=== PATIENT | male | born 1960 | race Caucasian/White ===

== ENCOUNTER 2017-08-02 10:30 | Outpatient (RCR) | payer OTHER, MEDICARE, SELFPAY ==
--- NOTE | 2017-02-02 11:36 | HP.PTEVAL ---
Patient's Visit Information YONATHAN HERNANDEZ JR is a 56 year old M referred to Physical Therapy by Shaggy Lobo MD with a diagnosis of s/p cervical spinal fusion ,right side weakness. Date of Evaluation: 02/02/17 Physical Therapist: Yobany Thornton PT, - Visit Plan Frequency: 2x /Week Duration: 6 Weeks Plan: postural ex's,balance gait,BLE strengthening,gentle cervical ROM. PATIENT TO SEE OT WITH UE - Subjective Subjective: This 56 y/o male presents to physical therapy s/p cervical spinal fusion done January 08 2017 at [facility].Patient had right side weakness arm and leg.Patient D/C from [facility] to Rehab 4th floor for about 1 week then d/c January 15 to home.Recommended cane.Okay to remove soft cast at home when resting.Patient intially injured 2008 fell out of truck on feet then developed cervical found to have cervical fx and HNP 1st surgery with cervical laminectomy,then 6 months later cervical fusion by Dr Kirkland.Patient had parathesia/tingling right arm with weakness. Patient recommended DR Freddy RUZI,had MRI. severe stenosis,HNP then S/P ACDF C3-4. Currently increase weakness right arm /leg,patient had multlpe diagnostics. Patient has lifting restriction 8#. Location pain cervical parathesia right arm with pain. Patient has BENAVIDES .Patient pain affects sleeping. Denies dinnies /nausea/tinntus. Patient has pain pump 4 years.Patient has had PT in past. Patient has had pain management several times.Due to impairments to work and difficulty. with ADLS and unbal to do housework tasks. SOCIAL: . VOCATION: disabity - Pain Bilateral Neck Pain Intensity (Out of 10): 4 Pain Intensity Range: 10 Right Shoulder Pain Intensity (Out of 10): 0 Pain Intensity Range: 10 Comment: arm - Objective POSTURE: foward posture ,head foward. GAIT: antalgic gait ER leg from weakness ,decrease swing phase. NEURO: c/o parathesia/tingling right arm/leg,reflexes C5-6-7 1/3,L3-4,L4-5,L5-S1 1/3. MYTOME weakness right arm /leg,light touch intact. MMT: RUE shoulder 3-/5,bicep 3+/5 tricep 3+/5,wrist 3+/5,UT 3-/5 RTC 3+/5,,LUE 4/5. 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 MMT: RLE quads 3-/5,hams 3+/5,hip flexion 3/5 ,hip abd 3-/5,ankle 3+/5 DF. CERVICAL ROM: flexion mod loss,extension severe loss,lateral flexion/rotation severe loss left,right mod/severe loss. SKIN: incsion well aproximate. BALANCE : good -. AROM: shoulder flexion 90 degrees ,WFL elbow/flexion - Special Tests C/S Radiculapathy - Left Upper limb tension test: Negative C/S Radiculapathy - Right Upper limb tension test: Negative - Balance Scores CATSIB Score (Max score 120 seconds): 150 - Goals Goal 1:: Independant with HEP Goal Time Frame: 4-6 Weeks Goal 2:: Ambulate with improved quality of gait with increase swing phase ,heel strike during gait cycle. Goal Time Frame: 4-6 Weeks Goal 3:: Patient increase stength right leg to 4-/5 to improve function and gait. Goal 4:: Patient improve dynamic balance to good-/good level/unlevel surfaces Goal Time Frame: 4-6 Weeks Goal 5:: Patient be able to improve ADL'S and selfhygine with min limitations Goal Time Frame: 4-6 Weeks - Rehabilitation Potential Physical Therapy Diagnosis: This patient has multple complexity issues comormidities along h/o cervical fusion 2009 from work related injury along with current impairments with s/p cervical ACDF with right side weakness in arm and leg causing deficits with gait,function,balance ,weakness ,thus will benifit from skilled PT Rehabilitation Potential: Good - Anticipated Interventions Patient/Client Instruction: Educate patient on: Condition, Plan of Care For the Purpose of:: To decrease pain, To improve muscle performance and motor function, To improve ability to perform ADL's, To increase tolerance to activity/condition/position, To improve ability of physical actions for home/community/work/leisure, To improve gait and locomotor functions, To increase flexibility/ROM, To improve endurance, To improve balance, To improve safety with gait, To assume or resume ADL's, To improve ability to perform tasks related to life management Therapeutic Exercise to Include: Strength training, Endurance training, Balance training, Postural training, Gait and locomotor training, Active ROM Comment: BLE,CERVICAL ROM gentle For the Purpose of:: To decrease pain, To increase ROM, To improve muscle performance and motor function, To improve ability to perform ADL's, To increase tolerance to activity/condition/position, To improve performance and independence with ADL's, To decrease level of supervision to perform tasks, To improve ability of physical actions for home/community/work/leisure, To improve gait and locomotor functions, To improve health of tissue, To decrease soft tissue restriction, To improve endurance, To improve balance, To improve safety with gait, To assume or resume ADL's, To improve ability to perform tasks related to life management Functional Training to Include: Gait training For the Purpose of:: To decrease pain, To improve muscle performance and motor function, To increase tolerance to activity/condition/position, To improve endurance, To improve safety with gait Thank you for the opportunity to evaluate your patient. For Medicare and Medicare HMO plans, please review the plan of care and approve it. It will need to be FAXED BACK to us at [phone] for Medicare purposes. Please let me know if there are questions or concerns regarding this plan of care. Physician Signature: Date:
--- NOTE | 2017-02-03 19:06 | HP.OTEVAL ---
Patient's Visit Information YONATHAN HERNANDEZ JR is a 56 year old M, referred to Occupational Therapy by Shaggy Lobo MD,, with a diagnosis of Cervical Fusuion with R sided Weakness. Date of Evaluation: 02/03/17 Occupational Therapist: Razia Carreon - Subjective Subjective: Pt. noted that that orginal injury occured in 2008 from slipped out of semi-trailer. He noted he landed flat on both feet. The body stoped but head and head kept coming down. Pt. suffered cervical fracture. He drove the load to location in [facility]. He had laminectomy in June that year. In November 2009, C4,5,6 cervical fusion to help promote function. The last cervical fusion was in December of this year. He noted between the last seven years he had pain pump place (non narcotic based drug). Hemocrotosis, in which liver produces too much iron. A couple weeks ago Pt. dx with lupus. - Pain Bilateral Neck 4 Pain Intensity Range: 10 - ROM Shoulder: Flexion R 99/180 L WFL Elbow: R WFL L WFL Forearm: Supination R L Wrist: R L MP: R 2nd 3rd 4th 5th ; L 2nd 3rd 4th 5th PIP: WFL - Strength Shoulder: R L Elbow: R L Research And Development Researcher: R 10 L 79 Lateral Pinch: R L Tripod Pinch: R L Tip-to-Tip Pinch: R L - Sensation Thumb: R 4.08 L 2.83 Index: R 4.08 L 2.83 Middle: R 4.08 L 2.83 Ring: R 6.65 L 2.83 Little: R 6.65 L 2.83 - Nine Hole Peg Right: 38.95 Left: 24.95 - Rehabilitation Rehabilitation Potential: Good - Anticipated Interventions Anticipated Interventions: A/AAROM/PROM, Strengthening, Edema Control, Modalities, Joint Protection/Energy Conservation, Ergonomic Education, Fine Motor Coord/Royer, Neuro Reeducation, ADL Training, Caregiver Training, Home Program - Visit Plan Frequency: 2x /Week Duration: 6 Weeks General Plan: Have not recieved c9 for OT therapy approval. Will hold scheduling until recieved. TEXT: Thank you for the opportunity to evaluate your patient. For Medicare and Medicare HMO plans, please review the plan of care and approve it. It will need to be FAXED BACK to us at [phone] for Medicare purposes. Please let me know if there are questions or concerns regarding this plan of care. Physician Signature: Date:
--- NOTE | 2017-02-09 14:18 | HP.OTEVAL ---
Patient's Visit Information YONATHAN HERNANDEZ JR is a 56 year old M, referred to Occupational Therapy by Shaggy Lobo MD,, with a diagnosis of Cervical Fusuion with R sided Weakness. Date of Evaluation: 02/03/17 Occupational Therapist: Razia Carreon - Subjective Subjective: Pt. noted that that orginal injury occured in 2008 from slipped out of semi-trailer. He noted he landed flat on both feet. The body stoped but head and head kept coming down. Pt. suffered cervical fracture. He drove the load to location in [facility]. He had laminectomy in June that year. In November 2009, C4,5,6 cervical fusion to help promote function. The last cervical fusion was in December of this year. He noted between the last seven years he had pain pump place (non narcotic based drug). Hemocrotosis, in which liver produces too much iron. A couple weeks ago Pt. dx with lupus. - Pain Bilateral Neck 4 Pain Intensity Range: 10 - ROM Shoulder: Flexion R 0- 99/180 L WFL Elbow: R WFL; L WFL Forearm: Supination R 75 L Wrist: flexion R 50, L 90; extension R 28, L 70 MP: R 2nd 64 3rd 59 4th 57 5th 61 ; L 2nd 76 3rd 83 4th 66 5th 76 PIP: WFL - Strength Shoulder: R 3/5 L WFL Elbow: R 3+/5 L WFL Lift Operator: R 10 L 79 Lateral Pinch: R 2 L 21 Tripod Pinch: R 5 L 23 Tip-to-Tip Pinch: R 4 L 17 - Sensation Thumb: R 4.08 L 2.83 Index: R 4.08 L 2.83 Middle: R 4.08 L 2.83 Ring: R 6.65 L 2.83 Little: R 6.65 L 2.83 - Nine Hole Peg Right: 38.95 Left: 24.95 - Rehabilitation Rehabilitation Potential: Good - Anticipated Interventions Anticipated Interventions: A/AAROM/PROM, Strengthening, Edema Control, Modalities, Joint Protection/Energy Conservation, Ergonomic Education, Fine Motor Coord/Royer, Neuro Reeducation, ADL Training, Caregiver Training, Home Program - Visit Plan Frequency: 2x /Week Duration: 6 Weeks General Plan: Have not recieved c9 for OT therapy approval. Will hold scheduling until recieved. TEXT: Thank you for the opportunity to evaluate your patient. For Medicare and Medicare HMO plans, please review the plan of care and approve it. It will need to be FAXED BACK to us at [phone] for Medicare purposes. Please let me know if there are questions or concerns regarding this plan of care. Physician Signature: Date:
--- NOTE | 2017-02-09 15:00 | HP.OTEVAL_ITS ---
Patient's Visit Information YONATHAN HERNANDEZ JR is a 56 year old M, referred to Occupational Therapy by Shaggy Lobo MD,, with a diagnosis of Cervical Fusuion with R sided Weakness. Date of Evaluation: 02/03/17 Occupational Therapist: Razia Carreon - Subjective Subjective: Pt. noted that that orginal injury occured in 2008 from slipped out of semi-trailer. He noted he landed flat on both feet. The body stoped but head and head kept coming down. Pt. suffered cervical fracture. He drove the load to location in [facility]. He had laminectomy in June that year. In November 2009, C4,5,6 cervical fusion to help promote function. The last cervical fusion was in December of this year. He noted between the last seven years he had pain pump place (non narcotic based drug). Hemocrotosis, in which liver produces too much iron. A couple weeks ago Pt. dx with lupus. - Pain Bilateral Neck 4 Pain Intensity Range: 10 - Objective Objective/Observation: Pt. has decrease ROM and strength of RUE. He has limited cervical ROM secondary to fusion. Per Pt. report he is experiencing decrease functional (I) to complete ADL/IADLs at this time. - ROM Shoulder: Flexion R 0- 99/180 L WFL Elbow: R WFL; L WFL Forearm: Supination R 75 L Wrist: flexion R 50, L 90; extension R 28, L 70 MP: R 2nd 64 3rd 59 4th 57 5th 61 ; L 2nd 76 3rd 83 4th 66 5th 76 PIP: WFL - Strength Shoulder: R 3/5 L WFL Elbow: R 3+/5 L WFL Data Transcriber: R 10 L 79 Lateral Pinch: R 2 L 21 Tripod Pinch: R 5 L 23 Tip-to-Tip Pinch: R 4 L 17 - Sensation Thumb: R 4.08 L 2.83 Index: R 4.08 L 2.83 Middle: R 4.08 L 2.83 Ring: R 6.65 L 2.83 Little: R 6.65 L 2.83 - Nine Hole Peg Right: 38.95 Left: 24.95 - Goals Goal:: Pt. to increase R hypercil core transformer assembler strength to that of equal or 10 lbs lesser value of L hypercil core transformer assembler strength 2/3 trials 75% of the time for increased (i) and performance with ADl/IADLs. Goal:: Pt. to increase RUE ROM from 0-99 degrees to 0-140 degrees to promote increase functional performance with overhead reaching activities 4/5 trials 80 % of the time to increase (I) and decrease need for assistance. Goal:: Pt. to increase R pinch strength to that of equal value of L pinch strength for increased (I) 4/5 trials 80% of the time to increase fx performance and ability to manipualte self-care items by time of d/c. Goal:: Pt. to be I-mod I to complete all UB/LB ADls with use of a/e, a/d, and DME as needed for increased (I) and decrease need for assistance 4/5 triasl 80% of the time to icnrease (I) and decrease need for assiatnce by time of d/c. Goal:: Pt to be mod I to complete IADls including light chores, cooking, and leisure interests 4/5 trials 80% of the time to increase (I) and decrease need for assistance. - Rehabilitation General Assessment: Pt., Eyal, was referred to OT for RUE weakness secondary to multiple spinal surgeries. He recently underwent cervical fusion. He exhibited decrease ROM, strength, and functional performance of R dominat side. Pt. to recieve OT servcies for ROM, strength, compensation and adaptation techniques to promote (I) in ADl/IADLs to promote QOL and return to PLOF. Rehabilitation Potential: Good - Anticipated Interventions Anticipated Interventions: A/AAROM/PROM, Strengthening, Edema Control, Modalities, Joint Protection/Energy Conservation, Ergonomic Education, Fine Motor Coord/Royer, Neuro Reeducation, ADL Training, Caregiver Training, Home Program - Visit Plan Frequency: 2x /Week Duration: 6 Weeks General Plan: Have not recieved c9 for OT therapy approval. Will hold scheduling until recieved. TEXT: Thank you for the opportunity to evaluate your patient. For Medicare and Medicare HMO plans, please review the plan of care and approve it. It will need to be FAXED BACK to us at [phone] for Medicare purposes. Please let me know if there are questions or concerns regarding this plan of care. Physician Signature: Date:
--- NOTE | 2017-04-19 18:18 | HP.PTREVAL ---
Shaggy Lobo MD, It has been my pleasure to treat YONATHAN HERNANDEZ JR over the last 10 visits for s/p cervical spinal fusion ,right side weakness. Please see the progress note below for an update on the physical therapy plan of care! Subjective: Patient received new C9 to cont PT with 04/20/17-06/01/17. Havent seen DR Pratt.will see DR Hayes video conference. Denies parathesia/tingling. Objective/Function: POSTURE: mild foward posture. GAIT: decrease stance right ,mild foward posture. CERVICAL ROM: flexion MOD/SEVERE LOSS,lateral flexion severe loss ,flexion loss. NEURO: denies parathesia/tingling ,reflexes 1/3 C5-6-7,2/3 C5-6-7. MMT: bicep 3+/5,tricep 4-/5,deltoid +/5,wrist 4-/5 right,left 4-/5 de.ltoid. hip flexion 3+/5,quads/hams 4-/5,ankle DF 4-/5. 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 2-3XWK FOR 12 VISITS Goals Goal 1:: Independant with HEP Goal Time Frame: 4-6 Weeks Goal Progress: Progressing Goal 2:: Ambulate with improved quality of gait with increase swing phase ,heel strike during gait cycle. Goal Time Frame: 4-6 Weeks Goal Progress: Progressing Goal 3:: New Goal: Patient increase stength right leg to 4/5 to improve function and gait. Goal 4:: Patient improve dynamic balance to good-/good level/unlevel surfaces Goal Time Frame: 4-6 Weeks Goal Progress: Goal Met Goal 5:: Patient be able to improve ADL'S and selfhygine with min limitations as well ascervical ROM to. mod loss. Goal Time Frame: 4-6 Weeks Goal Progress: Progressing Goal 6:: Patient increase strength right UE 4/5 except shoulder 4-/5 to improve function Anticipated Interventions Patient/Client Instruction: Educate patient on: Condition, Plan of Care For the Purpose of:: To decrease pain, To improve muscle performance and motor function, To improve ability to perform ADL's, To increase tolerance to activity/condition/position, To improve ability of physical actions for home/community/work/leisure, To improve gait and locomotor functions, To increase flexibility/ROM, To improve endurance, To improve balance, To improve safety with gait, To assume or resume ADL's, To improve ability to perform tasks related to life management Therapeutic Exercise to Include: Strength training, Endurance training, Balance training, Postural training, Gait and locomotor training, Active ROM Comment: BLE,CERVICAL ROM gentle For the Purpose of:: To decrease pain, To increase ROM, To improve muscle performance and motor function, To improve ability to perform ADL's, To increase tolerance to activity/condition/position, To improve performance and independence with ADL's, To decrease level of supervision to perform tasks, To improve ability of physical actions for home/community/work/leisure, To improve gait and locomotor functions, To improve health of tissue, To decrease soft tissue restriction, To improve endurance, To improve balance, To improve safety with gait, To assume or resume ADL's, To improve ability to perform tasks related to life management Functional Training to Include: Gait training For the Purpose of:: To decrease pain, To improve muscle performance and motor function, To increase tolerance to activity/condition/position, To improve endurance, To improve safety with gait Please do not hesitate to contact me at [phone] by phone or if you have questions or concerns regarding this new plan of care! Sincerely, Yobany Thornton, PT,
--- NOTE | 2017-10-18 15:36 | HP.PTDCNRP_ITS ---
HP - Discharge Summary (1) - Patient Information YONATHAN HERNANDEZ JR was seen in my office for initial evaluation on 02/02/17. The following Plan of Care was established for this patient: Initial Frequency: 2x /Week Initial Duration: 6 Weeks - Anticipated Interventions Patient/Client Instruction: Educate patient on: Condition, Plan of Care For the Purpose of:: To decrease pain, To improve muscle performance and motor function, To improve ability to perform ADL's, To increase tolerance to activity /condition/position, To improve ability of physical actions for home/community/ work/leisure, To improve gait and locomotor functions, To increase flexibility/ ROM, To improve endurance, To improve balance, To improve safety with gait, To assume or resume ADL's, To improve ability to perform tasks related to life management Therapeutic Exercise to Include: Strength training, Endurance training, Balance training, Postural training, Gait and locomotor training, Active ROM For the Purpose of:: To decrease pain, To increase ROM, To improve muscle performance and motor function, To improve ability to perform ADL's, To increase tolerance to activity/condition/position, To improve performance and independence with ADL's, To decrease level of supervision to perform tasks, To improve ability of physical actions for home/community/work/leisure, To improve gait and locomotor functions, To improve health of tissue, To decrease soft tissue restriction, To improve endurance, To improve balance, To improve safety with gait, To assume or resume ADL's, To improve ability to perform tasks related to life management Functional Training to Include: Gait training For the Purpose of:: To decrease pain, To improve muscle performance and motor function, To increase tolerance to activity/condition/position, To improve endurance, To improve safety with gait This patient was last seen in our office 08/02/17. Pertinent comments regarding their Physical therapy will appear below: Patient seen for PT for cervical fusion with right side weakness . PT focused on postural ex's, ,BUE/LE strengthening,conditioning 20 visits. Patient did have other complications with infected port which held some of his PT treatents.Patient was progressivly getting stronger with UE/LE and improved gait. Patient was to follow-up with surgeon. Thus is d/c. At this point I will be discontinuing this patient from physical therapy. I would be happy to see this patient again in the future if found appropriate by the physician. Thank you! Yobany Thornton, PT,
--- NOTE | 2017-10-22 09:24 | HP.OT.NRP ---
HP - Discharge Summary - Patient Information DYLAN HERNANDEZ JR was seen in my office for initial evaluation on 02/03/17. The following Plan of Care was established for this patient: Initial Frequency: 2x /Week Initial Duration: 6 Weeks Plan: continue POC. 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 PT to address and communicate with OT for additional options. - Anticipated Interventions Anticipated Interventions: A/AAROM/PROM, Strengthening, Edema Control, Modalities, Joint Protection/Energy Conservation, Ergonomic Education, Fine Motor Coord/Royer, Neuro Reeducation, ADL Training, Caregiver Training, Home Program This patient was last seen in our office 05/18/17. Pertinent comments regarding their Occupational therapy will appear below: Dylan attended 5 OT appointments. Pt. did not schedule further follow up. He will be d/c'd at this time and is to continue HEP. Please call with questions or concerns. At this point I will be discontinuing this patient from occupational therapy. I would be happy to see this patient again in the future if found appropriate by the physician. Thank you! Razia Carreon
== END 2017-08-02 19:00 | disposition home or self-care (01) ==
LOC: PT 10:30
PROVIDERS: Family Provider Family Medicine; PCP Family Medicine; Visit Provider Orthopaedic Surgery Pediatric Orthopaedic Surgery
DX: Z98.1 Arthrodesis status (principal); M62.81 Muscle weakness (generalized)
CPT/HCPCS: 97014; 97110; 97163; 97166; 97530; G0283

== ENCOUNTER → 2018-01-06 07:07 | Outpatient (CLI) | payer OTHER, MEDICARE, SELFPAY ==
--- NOTE | 2018-01-06 07:10 | CT_ITS ---
STUDY: LOW DOSE CT LUNG CANCER SCREENING REASON FOR EXAM: Male, 57 years old. 20 pack-year history of smoking. History of bladder cancer. Shortness of breath. RADIATION DOSAGE (If Supplied By Facility): CTDIvol = ( 4.02 ) mGy, DLP = ( 140.94 ) mGycm TECHNIQUE: No contrast was administered. Low dose technique was utilized (average mAS-38 and kVp 120). 1.25 mm axial source images with a slice interval of 1.25-mm were reconstructed in lung windows. 2.5 mm axial source images with a slice interval of 2.5-mm were reconstructed in lung windows. 5.0 mm axial source images with a slice interval of 5.0-mm were reconstructed in soft tissue windows. Nodule measured using lung windows on PACS and/or independent workstation with automated measurement of minimum and maximum diameter. Nodule measurement reported as average diameter rounded to the nearest whole number. Growth is defined as an increase ins size of greater than 1.5 mm. COMPARISON: Comparison is made with prior CT scan of the thorax dated February 20, 2013. A right-sided portacatheter is seen. The tip is in the superior vena cava. NODULES: No suspicious nodular densities are seen. Stable linear and nodular densities seen in the anterior aspect of the left lower lobe. This most likely represents scarring. This is unchanged. Stable 7 mm noncalcified nodule in the right middle lobe anteriorly as seen on axial image #150. CT/Low Dose CT Lung Screening IMPRESSION: Lung-RADS category 2 - Continue annual screening with LDCT in 12 months. IMPORTANT NOTES FOR USE: ACR Lung-RADS Version 1.0 Assessment Categories Release Date: January 15, 2014 Category: Coded 0-4 bases on nodule(s) with highest degree of suspicion. Negative screen is defined as categories 1 and 2; a positive screen is defined as categories 3 and 4. Category 3 and 4A nodules that are unchanged on interval CT should be coded as category 2, and individuals returned to screening in 12 months. Category 4X: Category 3 or 4 nodules with additional imaging findings that increase the suspicion of lung cancer, such as spiculation, GGN that doubles in size in 1 year, enlarged lymph notes, etc. Category Modifiers: S (significant finding unrelated to lung cancer) and C (prior history of treated lung cancer) may be added to the 0-4 Lung-RADS Electronically Signed: Reno Arreola MD at 10:30 EDT Tel [phone], Service support ,
--- NOTE | 2018-01-06 07:36 | US_ITS ---
STUDY: ABDOMINAL ULTRASOUND - RIGHT UPPER QUADRANT REASON FOR VISIT: Male, 57 years old. The patient has a history of hemochromatosis. Screening for hepatocellular carcinoma. TECHNIQUE: Ultrasound evaluation of the right upper quadrant was performed with real-time and static kruger-scale imaging. TECHNICAL QUALITY: Adequate. COMPARISON: Comparison is made with prior ultrasound dated December 14, [address] scan and abdomen dated November 19, 2016. FINDINGS: Liver: The liver measures 16.4 cm. There is increased echogenicity consistent with fatty infiltration. The bile ducts are within normal limits. There is hepatic color flow. The direction of portal flow is hepatopetal. There is no demonstrated mass lesion. Gallbladder: The patient is status post cholecystectomy. Common Bile Duct (C.B.D.): The common bile duct measures 2.0 mm. Pancreas: Normal size of the head, body and tail of the pancreas. There is normal echogenicity of the pancreas. There is no demonstrated pancreatic mass or cyst. Right Kidney: Normal size of the right kidney. The right kidney measures 12.5 cm x 5.3 cm x 6.9 cm. Normal renal cortex. The right cortex measures 1.5 cm. There is no demonstrated renal mass or cyst. There is no right hydronephrosis. US/Liver IMPRESSION: Fatty infiltration of the liver. Electronically Signed: Reno Arreola MD at 10:24 EDT Tel [phone], Service support ,
== END ==
PROVIDERS: Family Provider Family Medicine; PCP Family Medicine; Visit Provider Internal Medicine Hematology & Oncology
DX: Z12.2 Encounter for screening for malignant neoplasm of respiratory organs (principal); E83.119 Hemochromatosis, unspecified; F17.200 Nicotine dependence, unspecified, uncomplicated; Z85.51 Personal history of malignant neoplasm of bladder; Z87.891 Personal history of nicotine dependence
CPT/HCPCS: 76705; G0297

== ENCOUNTER → 2018-01-31 14:42 | Outpatient (CLI) | payer OTHER, SELFPAY ==
--- NOTE | 2018-01-31 14:47 | CT_ITS ---
STUDY: CT CERVICAL SPINE WITHOUT CONTRAST REASON FOR EXAM: Male, 57 years old. Cervical fusion RADIATION DOSAGE (If Supplied By Facility): CTDIvol = ( 28.51 ) mGy, DLP = ( 628.23 ) mGycm TECHNIQUE: High resolution transaxial imaging was performed without contrast material. Sagittal and coronal images were reconstructed. Individualized dose optimization techniques were used for this CT. COMPARISON: X-ray April 27, 2017 FINDINGS: Normal craniovertebral junction. There are degenerative changes of the anterior atlantoaxial articulation. Normal odontoid process. There is straightening of the normal cervical lordosis. There are postoperative changes. There is anterior cervical fusion with hardware at C3-4. There is fixation plate and screws extending from C5 to C6. There is posterior fusion with bilateral pedicle screws from C3 to C7. There is laminectomy of C4 and C5. No acute fracture . C2-3: Normal endplates. Normal disc height and morphology. Normal central canal and intervertebral neuroforamina. Facet spurring. C3-4: Fusion. Disc bulge and spurring. Normal central canal and intervertebral neuroforamina. C4-5: Fusion. Mild spurring. Normal central canal and intervertebral neuroforamina. C5-6: Fusion. Normal central canal and intervertebral neuroforamina. C6-7: Disc space narrowing. Disc bulge and spurring are Posterior fusion.. Normal central canal and intervertebral neuroforamina. C7-T1: Normal endplates. Normal disc height and morphology. Normal central canal and intervertebral neuroforamina. Postoperative changes of the neck. There is port on the right side. CT/Spine Cervical without Contras IMPRESSION: Postoperative changes with fusion. Electronically Signed: Camron Melendez MD at 15:43 EDT , Service support ,
== END ==
PROVIDERS: Family Provider Family Medicine; PCP Family Medicine
DX: M54.12 Radiculopathy, cervical region (principal); Z98.1 Arthrodesis status; Z72.0 Tobacco use
CPT/HCPCS: 72125

== ENCOUNTER → 2018-02-15 18:17 | Outpatient (CLI) | payer OTHER, MEDICARE, SELFPAY ==
--- NOTE | 2018-02-15 | CYSPIN_PTH ---
PATIENT: YONATHAN HERNANDEZ Jr. LOC: [facility] U#:[id number] AGE/SX: 64/M ROOM: RE02/15/[address]: Dr. Jose Mckeon MD : 1960 BED: DIS: SPEC #: [id number] RECD: 02/15/18 15:45 STATUS: SEAN RERosie #: [id number] SUZANNE: 02/15/18 00:[address]: Jose Mckeon DEPT: CYTOLOGY RECD BY: Lalito Prasad ENTERED: 02/16/18 08:38 SP TYPE: CYSPIN FL OTHR DR: Dr. Xavier Turcios MD Tissues: Urine Procedures: Pap Stain (control) Special Stain Group II Cytospin Fluid HEADER OPERATION: Not noted PRE-OP DIAGNOSIS: C67.9 TISSUE SUBMITTED: Urine for cytology DIAGNOSIS CYTOLOGY Urine for cytology (cytospin): Negative for malignant cells. SJ:carlotta 02/17/18 CYTOLOGY STUDY Slides are reviewed. The specimen predominantly consists of benign squamous cells and amorphous acellular material. CYTOLOGY GROSS Received is 25 ml of cloudy yellow fluid labeled with the patient's name and and designated per the requisition as urine. Submitted for cytology preparation. 02/16/18 TC:5 CPT: 97467
[2018-02-15 18:20] LABS: Cytology, Body Fluid / CSF SEE PATHOLOGY REPORT
== END ==
PROVIDERS: Visit Provider Urology
DX: C67.9 Malignant neoplasm of bladder, unspecified (principal)
CPT/HCPCS: 88108; 88313

== ENCOUNTER 2018-03-03 16:00 | Outpatient (RCR) | payer OTHER, SELFPAY ==
--- NOTE | 2017-12-28 10:56 | HP.PTEVAL ---
Patient's Visit Information YONATHAN HERNANDEZ is a 57 year old M referred to Physical Therapy by MD KALIN Carreno with a diagnosis of s/p CERVICAL FUSION ,RIGHT SIDE WEAKNESS. Date of Evaluation: 12/28/17 Physical Therapist: Yobany Thornton, PT, - Visit Plan Frequency: 2x /Week Duration: 6 Weeks Plan: NO TWISTING/BENDING LIFTING GREATER 5#. PT for postural ex's right UE /LE STRENGTHENING,GAIT - Subjective Subjective: This 57 y/o male presents to physical therapy with s/p cervical spinal fusion Nov 03 at [facility] done by DR Crawford. Patient had posterior fusion C3-7 rods/screws. Patient d/c to home with soft collar,5 # wt restriction.Patient DOI 2008 fell out of truck found to hace cervical fx and and HNP . Patient had 1st cervical laminectomy November 2008 ,6months later had cervical fusion C4-5.Patient continue to have parathesia/tingling seen DR Crawford 2015. Patient has h/o epidural,ablashion ,pain pump. Dr Crawford did MRI showed stenoisis,HNP. thus underwent S/P ACDF C3-4 at [facility]. Parient after surgery weakness right side UE/LE. Patient had PT after surgery. Patient has had complication for port right side for blood drawn for hemochrometosis -herdity..Also ,h/o spinal stroke ,DVT. Patient most recently had DVT shoulder Apr last year.Patient pain is better . Parathesia affects right hand,. Patient has weakness in right UE leg is doing better with strength. Patient has difficuly with ADL'S and houswork tasks and currently needs cane for gait.Patient occassionally c/o BENAVIDES. Denies tinnitus/nausea/swallowing difficulty. Patient impairments affect quality of life. SOCAIL: . VOCATION: disablity - Pain Bilateral Neck Pain Intensity (Out of 10): 2 Pain Intensity Range: 10 Right Shoulder Pain Intensity (Out of 10): 2 Pain Intensity Range: 10 Comment: arm - Objective POSTURE: mild foward posture,rounded shoulders reduce lordosis,. INSCION: well approximate posterior. NEURO: c/o parathesia/tingling right hand ,light touch intact,reflexes C5-6-7 1/3. GAIT: ambulates with straight cane with 2 pont gait with mild foward posture. PALPATION: tender parapinals. AROM: shoulder flexion /abd 140 degrees. CERVICAL ROM: flexion mod loss,rotaion/lateral flexion mod/severe loss. MMT: quads/hams 4/5 ,ankle 4/5 ,hip flexion 3+/5. shoulder lateral/anterior 3+/5,bicep/tricep 4-/5,wrist flexion/extension 4-/5. 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 strength 60# to improve function Goal Time Frame: 4-6 Weeks Goal 6:: Patient be able to perform ADL'S and housework chores with min limiations - Rehabilitation Potential Physical Therapy Diagnosis: This patient had posterior cervical fusion with weakness right UE but improving,right leg good srength but weakness hip ,patient has pain and numbnes thus deficits impairs ADL'S and housework tasks Rehabilitation Potential: Good - Anticipated Interventions Patient/Client Instruction: Educate patient on: Condition, Plan of Care For the Purpose of:: To decrease pain, To improve muscle performance and motor function, To improve ability to perform ADL's, To increase tolerance to activity/condition/position, To improve performance and independence with ADL's, To improve ability of physical actions for home/community/work/leisure, To increase flexibility/ROM, To improve endurance, To improve balance, To improve safety with gait, To improve ability to perform tasks related to life management Therapeutic Exercise to Include: Strength training, Endurance training, Balance training, Postural training, Active ROM Comment: RIGHT UE/LE For the Purpose of:: To decrease pain, To improve muscle performance and motor function, To increase tolerance to activity/condition/position, To improve performance and independence with ADL's, To improve ability of physical actions for home/community/work/leisure, To improve gait and locomotor functions, To improve endurance, To improve ability to perform tasks related to life management Thank you for the opportunity to evaluate your patient. For Medicare and Medicare HMO plans, please review the plan of care and approve it. It will need to be FAXED BACK to us at [phone] for Medicare purposes. Please let me know if there are questions or concerns regarding this plan of care. Physician Signature: Date:
--- NOTE | 2018-04-27 13:38 | HP.PTDCNRP_ITS ---
HP - Discharge Summary (1) - Patient Information YONATHAN HERNANDEZ Jr. was seen in my office for initial evaluation on 12/28/17. The following Plan of Care was established for this patient: Initial Frequency: 2x /Week Initial Duration: 6 Weeks - Anticipated Interventions Patient/Client Instruction: Educate patient on: Condition, Plan of Care For the Purpose of:: To decrease pain, To improve muscle performance and motor function, To improve ability to perform ADL's, To increase tolerance to activity /condition/position, To improve performance and independence with ADL's, To improve ability of physical actions for home/community/work/leisure, To increase flexibility/ROM, To improve endurance, To improve balance, To improve safety with gait, To improve ability to perform tasks related to life management Therapeutic Exercise to Include: Strength training, Endurance training, Balance training, Postural training, Active ROM For the Purpose of:: To decrease pain, To improve muscle performance and motor function, To increase tolerance to activity/condition/position, To improve performance and independence with ADL's, To improve ability of physical actions for home/community/work/leisure, To improve gait and locomotor functions, To improve endurance, To improve ability to perform tasks related to life management This patient was last seen in our office . Pertinent comments regarding their Physical therapy will appear below: Patient seen for PT for cervical fusion for 11 visits. Patient did well with improving strength right UE /LE, function and gait. At this point patient is d/ c end date of C9. Patient was to retun to for follow-up,thus is d/c. At this point I will be discontinuing this patient from physical therapy. I would be happy to see this patient again in the future if found appropriate by the physician. Thank you! Yobany Thornton, PT,
== END 2018-03-03 19:00 | disposition home or self-care (01) ==
LOC: PT 16:00
PROVIDERS: Family Provider Family Medicine; PCP Family Medicine; Visit Provider Orthopaedic Surgery Pediatric Orthopaedic Surgery
DX: R53.1 Weakness (principal); Z98.1 Arthrodesis status
CPT/HCPCS: 97110; 97162

== ENCOUNTER 2018-03-08 14:58 | Emergency (ER) | payer OTHER, MEDICARE, SELFPAY ==
[2018-03-08 14:59] VITALS: BP 154/81; PULSE 83; RESP 16; TEMP 36.6; O2SAT 95; BMI 34.2
--- NOTE | 2018-03-08 15:20 | ED.RN ---
pt left at 1519.
== END 2018-03-08 16:10 | disposition left against medical advice (07) ==
LOC: ED 16:07
PROVIDERS: Emergency Provider Emergency Medicine; Family Provider Family Medicine; PCP Family Medicine
DX: R52 Pain, unspecified (principal)

== ENCOUNTER 2018-08-18 11:30 | Day surgery (SDC) | payer OTHER, MEDICARE, SELFPAY ==
[2018-08-15 13:42] LABS: Hematocrit 45.9 % (40-54); Hemoglobin 16.2 g/dl (13.0-16.5); Mean Corp Hgb Conc 35.3 g/gl (32-36); Mean Corpuscular Hgb 31.7 pg (27.0-32.0); Mean Corpuscular Volume 89.8 fL (80-94); Platelet Count 168 K/mm3 (150-450); RBC Distribution Width CV 13.8 % (11.6-14.6); RBC Distribution Width SD 45.8 fl (35.1-43.9); Red Blood Count 5.11 M/mm3 (4.6-6.2); White Blood Count 7.2 K/mm3 (4.4-11.0)
[2018-08-15 13:43] LABS: Scan Indicated on CBC? Y/N NO
[2018-08-15 14:07] LABS: Anion Gap 12 (5-15); BUN 14 mg/dL (7-18); BUN/Creat Ratio 15.2 RATIO (10-20); Calcium,Total 8.6 mg/dL (8.5-10.1); Chloride 105 mmol/L (98-107); Creatinine, Serum 0.92 mg/dL (0.70-1.30); EST Glomerular Filtration Rate 90 mL/min (>60); Est Glom Filt Rate - Afr Amer 109 mL/min (>60); Glucose 110 mg/dL (74-106); Sodium Level 140 mmol/L (136-145)
[2018-08-18 11:52] VITALS: BP 131/85; PULSE 77; RESP 16; TEMP 36.4; O2SAT 95; BMI 32.8
[2018-08-18 13:06] LABS: Bedside Glucose 105 mg/dL (70-110)
--- NOTE | 2018-08-18 13:26 | DCINST_ITS ---
Discharge Diet: Light diet - advance as tolerated - if you have questions about your diet instructions, please talk to you doctor. Discharge Activity: May Not Drive - for 3 days while taking narcotic pain medicine. May shower in (days): 1 Lifting Restrictions: 5 pounds Call your doctor if your incision/area has: Continuous Slow Oozing, Sudden Increased Bleeding, Increased Pain/ Swelling, Increased Redness, Foul Smelling Discharge Call your doctor if you observe: Fever of 101 or Higher Suture Line Care: Avoid Pulling/Pushing, Avoid Pinching/Bending Additional Dressing/Incision Instructions:: Please keep your right hand clean and dry. You may elevate to eliminate swelling. You may wrap the hand and plastic in order to shower. Allergies/Adverse Reactions: Allergies lorazepam [From Ativan] Allergy (Severe, Verified 07/26/18 14:24) Other cephalexin [From Keflex] Adverse Reaction (Severe, Verified 07/26/18 14:24) Nausea/Vom/Diarrhea fluoxetine HCl [From Prozac] Adverse Reaction (Severe, Verified 07/26/18 14:24) Vomiting morphine Adverse Reaction (Severe, Verified 07/26/18 14:24) Rash pregabalin [From Lyrica] Adverse Reaction (Severe, Verified 07/26/18 14:24) hypotension BLOOD PRESSURE DROPS Medications to take at Discharge Amlodipine [Norvasc] 10 mg PO DAILY 11/18/16 lisinopril 10 mg tablet 10 mg PO QDAY 03/02/18 zolpidem 10 mg tablet 10 mg PO QHS PRN #30 tab 07/27/18 Primary Care Physician: Aleksandr Duarte DO [Primary Care Provider] - Test Results: Test results from this visit will be discussed in further detail at your follow- up appointment, if applicable. Please Follow Up With: Ashutosh Kearns MD - [phone] When: Call to make an appointment to be seen on Wednesday
[2018-08-18] MEDS: Bacitracin 500 UNITS/GM PACKET (15:06)
[2018-08-18] MEDS: Bupivacaine Mpf 0.5% 30 ML VIAL (15:07)
--- NOTE | 2018-08-18 15:14 | PCM.OPRPT ---
Problem List (1) Carpal tunnel syndrome on both sides Status: Chronic Report of Operation Date of Procedure: 08/18/18 Pre-Operative Diagnosis: Right carpal tunnel syndrome Post-Operative Diagnosis: Same Surgery/Procedure Performed:: Right carpal tunnel release Description of Surgical Findings:: Timeout and informed consent was obtained. 57-year-old gent was examined from placement table underwent [place] block anesthesia right upper extremity. Tourniquet of 250 mmHg pressure for 22 minutes. The right hand was sterilely prepped draped. 0.5% Marcaine was used as local anesthetic. A 9 cc was used. A curvilinear incision made the base of the right palm sharp dissection carried down through the subtendinous tissue the palmar fascia was incised the palmar fascia under direct position the median nerve was incised to the proximal wrist crease along the fourth ray was advanced to the mid palm. The palmar fascia was extraordinarily thick and tedious and careful effort was required to carefully transected. Good release was felt to have been achieved. The sub-dermis tissues are proximal interrupted 4-0 chromic. Skin is proximal and simple sutures with 4-0 nylon. Telfa 4 x 4 soft roll Freddy wrap applied. Sponge and instrument and needle counts were reported to the surgeon to be correct. He tolerated the procedure well was taken to the recovery area in satisfactory condition without apparent complication Specimens none drains none blood loss minimal Ashutosh Kearns M.D., F.A.C.S. Type of Anesthesia:: Block,Regional, Local Anesthesiologist: Darell Higuera
[2018-08-18 15:26] VITALS: BP 131/85; BP 149/98; PULSE 71; RESP 16; TEMP 36.6; O2SAT 95
[2018-08-18 15:30] VITALS: BP 131/85; BP 141/87; PULSE 66; RESP 16; O2SAT 93
[2018-08-18 15:35] VITALS: BP 130/88; BP 131/85; PULSE 68; RESP 16; O2SAT 95
[2018-08-18 15:43] VITALS: BP 131/85; PULSE 60; RESP 16; TEMP 36.4; O2SAT 96
[2018-08-18 16:21] VITALS: BP 131/85
--- OUTSIDE RECORDS SUMMARY | 2018-10-13 14:18 | XMS RPT_ITS ---
:1960 Author Organization OHIP Support Name Relationship Address Phone D Unavailable Unavailable Unavailable SARAH COOLELE Unavailable [address] [place] [address] + [place] [address] D Unavailable Unavailable Unavailable SARAH COOLELE Unavailable [address] + [place] [address] D Unavailable Unavailable Unavailable SARAH COOLELE Unavailable [address] + [place] [address] D Unavailable Unavailable Unavailable SARAH COOLELE Unavailable [address] + [place] [address] D Unavailable Unavailable Unavailable SARAH COOLELE Unavailable [address] + [place] [address] D Unavailable Unavailable Unavailable SARAH COOLELE Unavailable [address] + [place] [address] D Unavailable Unavailable Unavailable SARAH COOLELE Unavailable [address] + [place] [address] D Unavailable Unavailable Unavailable BRANDEN COOL Unavailable [address] + [place] [address] D Unavailable Unavailable Unavailable SARAH COOLELE Unavailable [address] + [place] [address] D Unavailable Unavailable Unavailable SARAH COOLELE Unavailable [address] + [place] [address] D Unavailable Unavailable Unavailable SARAH COOLELE Unavailable [address] + [place] [address] D Unavailable Unavailable Unavailable SARAH COOLELE Unavailable [address] + [place] [address] D Unavailable Unavailable Unavailable SARAH COOLELE Unavailable [address] + [place] [address] D Unavailable Unavailable Unavailable MARY, BRANDEN Unavailable [address] + [place] [address] D Unavailable Unavailable Unavailable MARY, BRANDEN Unavailable [address] + [place] [address] MARY, BRANDEN Unavailable Unavailable Unavailable MARY, YONATHAN Unavailable Unavailable Unavailable KARLA, LAVERNE Unavailable Unavailable Unavailable MARY, BRANDEN Unavailable Unavailable Unavailable MARY, YONATHAN Unavailable Unavailable Unavailable KARLA, LAVERNE Unavailable Unavailable Unavailable MARY, BRANDEN Unavailable Unavailable Unavailable MARY, YONATHAN Unavailable Unavailable Unavailable KARLA, LAVERNE Unavailable Unavailable Unavailable D Unavailable Unavailable Unavailable MARY, BRANDEN Unavailable [address] + [place] [address] D Unavailable Unavailable Unavailable MARY, BRANDEN Unavailable [address] + [place] [address] D Unavailable Unavailable Unavailable MARY, BRANDEN Unavailable [address] + [place] [address] D Unavailable Unavailable Unavailable MARY, BRANDEN Unavailable [address] + [place] [address] D Unavailable Unavailable Unavailable MARY, BRANDEN Unavailable [address] + [place] [address] D Unavailable Unavailable Unavailable MARY, BRANDEN Unavailable [address] + [place] [address] MARY, BRANDEN Unavailable Unavailable Unavailable MARY, YONATHAN Unavailable Unavailable Unavailable KARLA, LAVERNE Unavailable Unavailable Unavailable D Unavailable Unavailable Unavailable MARY, BRANDEN Unavailable [address] + [place] [address] D Unavailable Unavailable Unavailable MARY, BRANDEN Unavailable [address] + [place] [address] MARY, BRANDEN Unavailable Unavailable Unavailable MARY, YONATHAN Unavailable Unavailable Unavailable KARLA, LAVERNE Unavailable Unavailable Unavailable MARY, BRANDEN Unavailable Unavailable Unavailable MARY, YONATHAN Unavailable Unavailable Unavailable KARLA, LAVERNE Unavailable Unavailable Unavailable D Unavailable Unavailable Unavailable MARY, BRANDEN Unavailable [address] + [place] [address] MARY, BRANDEN Unavailable Unavailable Unavailable MARY, YONATHAN Unavailable Unavailable Unavailable KARLA, LAVERNE Unavailable Unavailable Unavailable MARY, BRANDEN Unavailable Unavailable Unavailable MARY, YONATHAN Unavailable Unavailable Unavailable KARLA, LAVERNE Unavailable Unavailable Unavailable MARY, BRANDEN Unavailable Unavailable Unavailable MARY, YONATHAN Unavailable Unavailable Unavailable KARLA, LAVERNE Unavailable Unavailable Unavailable MARY, BRANDEN Unavailable Unavailable Unavailable MARY, YONATHAN Unavailable Unavailable Unavailable KARLA, LAVERNE Unavailable Unavailable Unavailable MARY, BRANDEN Unavailable Unavailable Unavailable MARY, YONATHAN Unavailable Unavailable Unavailable KARLA, LAVERNE Unavailable Unavailable Unavailable MARY, BRANDEN Unavailable Unavailable Unavailable MARY, YONATHAN Unavailable Unavailable Unavailable KARLA, LAVERNE Unavailable Unavailable Unavailable MARY, BRANDEN Unavailable Unavailable Unavailable MARY, YONATHAN Unavailable Unavailable Unavailable KARLA, LAVERNE Unavailable Unavailable Unavailable D Unavailable Unavailable Unavailable D Unavailable Unavailable Unavailable MARY, BRANDEN Unavailable [address] + [place] [address] Care Team Providers Name Role Phone FELIX MCGREGORDAR Attending Unavailable IRAIDA HARRINGTON Referring Unavailable KONTAK, XAVIER R Primary Care Unavailable MECHE, SAFDAR Attending Unavailable SELF, SELF Referring Unavailable KONTAK, XAVIER R Primary Care Unavailable MCGREGOR, SAFDAR Admitting Unavailable MCGREGOR, SAFDAR Attending Unavailable KONTAK, XAVIER R Primary Care Unavailable KONTAK, XAVIER R Referring Unavailable CONSULT, GENERAL MEDICINE Consulting Unavailable MCGREGOR, SAFDAR Attending Unavailable SELF, SELF Referring Unavailable KONTAK, XAVIER R Primary Care Unavailable HOFFMANNRENETTA VYAS R Attending Unavailable HAILE, CHRISTOPHER L Referring Unavailable KONTAK, XAVIER R Primary Care Unavailable RENETTA HOFFMANN R Attending Unavailable TAHIRA RENETTA R Referring Unavailable KONTAK, XAVIER R Primary Care Unavailable MCGREGOR, SAFDAR Attending Unavailable SELF, SELF Referring Unavailable KONTAK, XAVIER R Primary Care Unavailable GRIMME CHRISTOPHER L Attending Unavailable SELF, SELF Referring Unavailable KONTAK, XAVIER R Primary Care Unavailable GRIMME, CHRISTOPHER L Attending Unavailable SELF, SELF Referring Unavailable KONTAK, XAVIER R Primary Care Unavailable MCGREGOR, SAFDAR Attending Unavailable SELF, SELF Referring Unavailable KONTAK, XAVIER R Primary Care Unavailable UNKNOWN, DOC Attending Unavailable UNKNOWN, DOC Referring Unavailable KONTAK, XAVIER R Primary Care Unavailable HATTIE FULLER Attending Unavailable MCGREGOR, SAFDAR Referring Unavailable KONTAK, XAVIER R Primary Care Unavailable FLORENCIO AMBROSE Attending Unavailable FLORENCIO AMBROSE Referring Unavailable KONTAK, XAVIER R Primary Care Unavailable KONTAK, BYRN R Attending Unavailable PROMISE, LAPMAN Referring Unavailable PROMISE, LAPMAN Referring Unavailable PROMISE, LAPMAN Referring Unavailable PROMISE, LAPMAN Referring Unavailable PROMISE, LAPMAN Referring Unavailable Isckarus, Lamonteour Attending Unavailable Isckarus, Mansour Referring Unavailable Brown, Aleksandr Primary Care Unavailable Brown, Aleksandr Attending Unavailable Brown, Aleksandr Referring Unavailable Cebul, Ashutosh Attending Unavailable Brown, Aleksandr Referring Unavailable Cebul, Ashutosh Attending Unavailable Brown, Aleksandr Primary Care Unavailable Cebul, Ashutosh Referring Unavailable Cebul, Ashutosh Attending Unavailable Cebul, Ashutosh Referring Unavailable Brown, Aleksandr Primary Care Unavailable Brown, Aleksandr Attending Unavailable Brown, Aleksandr Referring Unavailable Lasha Mcgregorr Attending Unavailable Shaggy Mcgregor Referring Unavailable Kontak, Xavier Primary Care Unavailable Isckarus, Brenden Attending Unavailable Kontak, Xavier Referring Unavailable Kontak, Xavier Primary Care Unavailable Isckarus, Brenden Attending Unavailable Kontak, Xavier Referring Unavailable Kontak, Xavier Primary Care Unavailable Isckarus, Mansour Consulting Unavailable Isckarus, Lamonteour Attending Unavailable Isckarus, Lamonteour Referring Unavailable Kontak, Xavier Primary Care Unavailable Isckarus, Lamonteour Attending Unavailable Kontak, Xavier Referring Unavailable Kontak, Xavier Primary Care Unavailable Isckarus, Mansour Consulting Unavailable SHIV BRANDT Attending Unavailable SHIV BRANDT Referring Unavailable Kontak, Xavier Primary Care Unavailable SHIV BRANDT Consulting Unavailable Jose Mckeon Attending Unavailable Kontak, Xavier Primary Care Unavailable Jose Mckeon Referring Unavailable Brown, Aleksandr Attending Unavailable Brown, Aleksandr Referring Unavailable Brown, Aleksandr Primary Care Unavailable Edgar Xiong Attending Unavailable Isckarus, Lamonteour Attending Unavailable Kontak, Xavier Referring Unavailable Kontak, Xavier Primary Care Unavailable Isckarus, Mansour Consulting Unavailable Brown, Aleksandr Attending Unavailable Brown, Aleksandr Referring Unavailable Kontak, Xavier Primary Care Unavailable Isckarus, Lamonteour Attending Unavailable Kontak, Xavier Referring Unavailable Kontak, Xavier Primary Care Unavailable Isckarus, Mansour Consulting Unavailable Cebul, Ashutosh Attending Unavailable Brown, Aleksandr Referring Unavailable Bhakti Bagley Attending Unavailable Cebul, Ashutosh Attending Unavailable Urmila Ashutosh Referring Unavailable Aleksandr Duarte Primary Care Unavailable Dedra Delgado PA-C Attending Unavailable Aleksandr Duarte Referring Unavailable Charly Lundberg Attending Unavailable Ashutosh Kearns Referring Unavailable Wendy Sanderson Attending Unavailable Aleksandr Duarte Primary Care Unavailable Wendy Sanderson Referring Unavailable Xavier Gould Primary Care Unavailable Shaggy Mcgregor Attending Unavailable PROBLEMS PROBLEMS DATE TYPE CONDITION / CODE ATTENDING STATUS SOURCE 09/06/2018 Unknown Z23 - Encounter for Aleksandr Duarte Active [place] immunization / Community Z23(ICD-10) Hospital Repository 09/06/2018 Unknown M65.9 - Synovitis Aleksandr Duarte Active [place] and tenosynovitis, Community unspecified / Hospital M65.9(ICD-10) Repository 08/31/2018 Unknown R10.9 - Unspecified CebuAshutosh syed Active [place] abdominal pain / Community R10.9(ICD-10) Hospital Repository 08/25/2018 Unknown C67.9 - Malignant Kin Active [place] neoplasm of bladder, Wendy Graham Community unspecified / Hospital C67.9(ICD-10) Repository 08/18/2018 Unknown G89.18 - Other acute CebuAshutosh syed Active [place] postprocedural pain Community / G89.18(ICD-10) Hospital Repository 08/25/2018 Unknown I10 - Essential TamikaSharif baezril Active [place] (primary) Community hypertension / Hospital I10(ICD-10) Repository 07/26/2018 Unknown G56.03 - Carpal Cebul, Ashutosh Active [facility] tunnel syndrome, Community bilateral upper Hospital limbs / Repository G56.03(ICD-10) 08/08/2018 Unknown Z45.2 - Encounter Iscmartinus, Active [place] for adjustment and [place] Community management of Hospital vascular access Repository device / Z45.2(ICD-10) 05/31/2018 Unknown E11.9 - Type 2 Aleksandr Duarte Active [place] diabetes mellitus Community without Hospital complications / Repository E11.9(ICD-10) 04/21/2018 Admitting New Patient / HALIE Active [facility] diagnosis [id number]() [facility] Repository 04/04/2018 Admitting Spinal stenosis, HATTIE FULLER Active [facility] diagnosis cervical region / University M48.02(ICD-10) [facility] Repository 04/04/2018 Admitting Pain in right arm / ALINA, HATTIE Yu Active [facility] diagnosis M79.601(ICD-10) [facility] Repository 04/04/2018 Admitting Pain in left arm / ALINA, HATTIE Yu Active [facility] diagnosis M79.602(ICD-10) [facility] Repository 04/04/2018 Admitting Carpal tunnel ALINA, HATTIE Yu Active [facility] diagnosis syndrome, right [facility] upper limb / [facility] Medical G56.01(ICD-10) Center Repository 04/04/2018 Admitting Carpal tunnel ALINA, HATTIE Yu Active [facility] diagnosis syndrome, left upper University limb / [facility] Medical G56.02(ICD-10) Center Repository 03/15/2018 Unknown E83.119 - Isckarus, Active [place] Hemochromatosis, [facility] unspecified / Hospital E83.119(ICD-10) Repository 05/04/2018 Unknown R53.1 - Weakness / Mcgregor, Safdar Active [facility] R53.1(ICD-10) On License Of [facility] Hospital Repository 03/02/2018 Unknown E11.8 - Type 2 Gerald Aleksandr Active [facility] diabetes mellitus On License Of [facility] with unspecified Hospital complications / Repository E11.8(ICD-10) 01/31/2018 Unknown Z98.1 - Arthrodesis SHIV BRANDT Active [place] status / Community Z98.1(ICD-10) Hospital Repository 01/31/2018 Unknown Z72.0 - Tobacco use SHIV BRANDT Active [place] / Z72.0(ICD-10) On License Of [facility] Hospital Repository 01/31/2018 Unknown M54.12 - SHIV BRANDT Active [place] Radiculopathy, On License Of [facility] cervical region / Hospital M54.12(ICD-10) Repository 01/06/2018 Unknown Z85.51 - Personal Isckarus, Active [place] history of malignant [facility] neoplasm of bladder Hospital / Z85.51(ICD-10) Repository 01/06/2018 Unknown F17.200 - Nicotine Isckarus, Active [place] dependence, [facility] unspecified, Hospital uncomplicated / Repository F17.200(ICD-10) 01/04/2018 Admitting Radiculopathy, MCGREGOR, SAFDAR Active [facility] diagnosis cervical region / University M54.12(ICD-10) [facility] Repository 01/25/2017 Admitting Tobacco use / MCGREGOR, SAFDAR Active [facility] diagnosis Z72.0(ICD-10) [facility] Repository 01/19/2017 Admitting Arthrodesis status / MCGREGOR, SAFDAR Active [facility] diagnosis Z98.1(ICD-10) [facility] Repository 07/11/2015 Active Hereditary NA Active [place] hemochromatosis / Clinic Main E83.110(ICD-10) [place] Repository 11/30/2017 Admitting Surgical Follow-up / GRIMME, [facility] diagnosis 104() [facility] Repository 11/15/2017 Admitting Infection following GRIMME, [facility] diagnosis a procedure, initial [facility] encounter / [facility] T81.4XXA(ICD-10) Center Repository 11/04/2017 Admitting Other cervical disc MCGREGOR, SAFDAR Active [facility] diagnosis [facility] unspecified cervical [facility] region / Center M50.20(ICD-10) Repository 10/19/2017 Admitting Encounter for other HOFFMANN, Active [facility] diagnosis preprocedural RENETTA R [facility] examination / [facility] Medical Z01.818(ICD-10) Center Repository 10/19/2017 Admitting Essential (primary) HOFFMANN, [facility] diagnosis hypertension / [facility] I10(ICD-10) [facility] Repository 10/19/2017 Admitting Type 2 diabetes [facility], [facility] diagnosis mellitus without [place]ENETTA R University complications ([facility]) [facility] Medical / E11.9(ICD-10) Center Repository 10/19/2017 Admitting half-way (current) HOFFMANN, Active [facility]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 ([facility]) [place]ET[place] R [place] / Z79.4(ICD-10) [facility] Repository 10/19/2017 Admitting Hereditary HOFFMANN, Active [facility] diagnosis hemochromatosis [facility] ([facility]) / [facility] Medical E83.110(ICD-10) Center Repository 10/19/2017 Admitting Personal history of HOFFMANN, Active [facility] diagnosis pulmonary embolism / [place] Z86.711(ICD-10) [facility] Repository 2016 Admitting Nicotine dependence, HOFFMANN, Active [facility] diagnosis cigarettes, [place] [facility] uncomplicated / [facility] Medical F17.210(ICD-10) Center Repository 10/19/2017 Admitting Follow-up / 145() SHAGGY MCGREGOR Active [facility] diagnosis [facility] Repository 10/07/2017 Active Unknown / NA Active [facility] UNK(Unknown) Clinic Main [place] Repository 10/22/2017 Unknown M62.81 - Muscle Shaggy Mcgregor Active [place] weakness Community (generalized) / Hospital M62.81(ICD-10) Repository PROCEDURES PROCEDURES No Procedure Records FoundRESULTS RESULTS INTERNAL MEDICINE Observed: 09/06/2018 Status: F Source: [place] OFFICE VISIT 11:48 AM [facility] REPOSITORY [facility] [address] [place] [address] [place] [address] OFFICE VISIT Date of Service: 09/06/18 MR#: [id number] Acct: [id number] Name: YONATHAN COOL Peri De La Cruz Rep #: [id number] : 1960 Provider: Aleksandr Duarte DO Age/Sex: 57/M Location: [facility] Status: Signed Intake Vital Signs09/06/18 Body Mass Index (BMI) 32.8 09/06/18 Height 6 ft Intake Visit Reasons: FU ABD PAIN Chief Complaint: abdominal swelling and back pain Is patient in pain?: Yes (Rt. sided pain) Pain scale (1-10): 8 Allergies lorazepam [From Ativan] Allergy (Severe, Verified 08/31/18 13:47) Other cephalexin [From Keflex] Adverse Reaction (Severe, Verified 08/31/18 13:47) Nausea/Vom/Diarrhea fluoxetine HCl [From Prozac] Adverse Reaction (Severe, Verified 08/31/18 13:47) Vomiting morphine Adverse Reaction (Severe, Verified 08/31/18 13:47) Rash pregabalin [From Lyrica] Adverse Reaction (Severe, Verified 08/31/18 13:47) hypotension Medications Amlodipine [Norvasc] 10 mg PO DAILY 11/18/16 [History Confirmed 08/31/18] lisinopril 10 mg tablet 10 mg PO QDAY 03/02/18 [History Confirmed 08/31/18] zolpidem 10 mg tablet 10 mg PO QHS PRN #30 tab 09/06/18 [Rx Confirmed 09/06/18] [facility] Medical History Carpal tunnel syndrome on both sides (Chronic) Pain pump (Acute) Lupus (Chronic) Bladder cancer (Chronic) Bone spur of foot (Chronic) Cirrhosis (Chronic) History of pulmonary embolus (PE) (Chronic) PORT PLACEMENT (Acute) Hereditary hemochromatosis (Chronic) Hypercoagulable state (Chronic) Abdominal pain (Acute) Depression (Acute) Nausea (Acute) Hypertension (Chronic) Surgical History History of appendectomy (Acute) History of carpal tunnel surgery of right wrist (Acute) History of cholecystectomy (Acute) History of deviated nasal septum (Acute) History of spinal fusion (Acute) Family History Father Prostate cancer Heart disease Grandfather Diabetes Grandmother Diabetes Mother Hypertension Heart disease Sister Hypertension Sisters x2 Social History Smoking Status: Current every day smoker alcohol intake: never substance use type: does not use what type of physical activity do you participate in: none HPI HPI Chief Complaint: abdominal swelling and back pain Details: YONTAHAN COOL, is a 57 M who presents to the office today for patient is here for discussion of his right-sided abdominal pain also discussion of his previous diagnosis sees checking his left hand where his thumb is painful again and he desires a vaccination as well. ROS Const Constitutional: No weight change, body ache, chills, fatigue, sleep problems, fever(s), change in appetite, snoring, weakness, frequent falls, headache(s) or excessive sweating Eyes Eyes: No change in vision, eye pain, light sensitivity or blurry vision ENT ENT: No headache(s), abnormal hearing, ear pain, tinnitus, nasal congestion, sore throat or neck pain Resp Respiratory: No snoring, cough, shortness of breath or wheezing Cardio Cardiology: No excessive sweating, chest pain at rest, chest pain with exertion, shortness of breath, dyspnea on exertion, palpitations, orthopnea or lightheadedness Gastro GI: Positive for other (right sided pain); no abdominal pain, change in bowel habits, constipation, diarrhea, vomiting, nausea/dyspepsia or cramping Genitourinary Male: No painful urination, urinary incontinence, urinary frequency, urinary urgency, blood in urine, testicle pain or other Musc Musculoskeletal: Positive for other; no neck pain, abnormal walking, joint pain, back pain, limited range of motion, numbness or tingling Skin Skin: No redness, dry skin, itching, lesions, wounds or rash Neuro Neurology: No weakness, frequent falls, headache(s), abnormal hearing, abnormal walking, numbness, tingling, abnormal speech, dizziness or memory loss Psych Psychiatric: No change in appetite, No memory loss, No anxiety, No depression, No Thoughts of harming yourself/Others Endo Endocrine: No fatigue, excessive sweating, cold intolerance, increased thirst/drinking, heat intolerance, flushing or increased hunger Aller/Imm Allergy/Immunologic: No wheezing, itchy eyes, hives or seasonal allergy symptoms Ozzy/Lymp Hematologic/Lymphatic: No easy bleeding, easy bruising or enlarged lymph nodes Exam Const General: healthy appearing, no acute distress Nutritional Appearance: overweight Orientation: oriented x3 Resp Effort AND Inspection: normal respiratory effort Auscultation: Bilateral: Clear to Auscultation Cardio Rate: regular rate Rhythm: regular rhythm GI Inspection: distended (swelling on the right side, but seems as if he is pushing it out) Auscultation: normal bowel sounds Percussion: normal to percussion Palpation: soft (soft when I distract him) Musc Musculoskeletal: Yes joint tenderness (at the base of the left thumb, right wrist is healing well) Skin General: no rashes or lesions noted Extrem General: normal exam except as noted Office Procedures Office Injections/Aspirations Procedure Detail Procedure performed by: Aleksandr Duarte Dose of injection: 20 mg Ortho Injection Site: Yes Medication Given: Yes Ortho Injections/Aspirations Yes [facility]MC Left Details: 0.5 ml of xylocaine and 0.5 cc of kenalog injected in the proximal left thumb. Office Meds Kenalog Performing Provider: Aleksandr Duarte DO Administered by: Bhakti Bagley on 09/06/18 11:21 Dose Route Admin Location Lot Number Expiration DateNDC Front Of House Manager 20 mg Intra-Articularleft thumb [id number] 05/21/20 7228-3586-16 [facility] Assessment AND Plan Problems 1. Tenosynovitis of left hand M65.9 2. Essential hypertension I10 3. 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 Gastric distention K31.89 5. Type 2 diabetes mellitus with complication, with long-term current use of insulin E11.8 Plan This patient was here for reevaluation of his right sided abdominal pain. After a very thorough evaluation by the surgical department that they could come up with nothing and I cannot either. What concerns me is that this swelling seems to be an intentional Valsalva maneuver. When I lie him down and distract him the abdomen seems normal. Also complicating things are his apparent history of hemochromatosis but there is nothing in his recent blood work that would indicate he has cream until hemochromatosis and also has history of fatty liver disease and there is nothing on his current tests either CT or lab test indicating there is really any problems with the liver at all. Complicating this is apparently he was an insulin-dependent diabetic and now he does not take anything for his sugar and its well-controlled he got his Pneumovax we refilled his medication I injected his thumb but I pretty much was unable to do anything for his right-sided abdominal pain. He is to see rate and cost analyst and I think his entire diagnosis these need to be looked at starting with a diagnosis of hemochromatosis in a person with normal hemoglobin normal hematocrit and normal ferritin studies. Orders Orders: Medications New: Refilled: Discontinued: Kenalog (triamcinolone acetonide) Disco20 mg (0.5 mL) Intra- Articular ONCE 0.5 mLM65.9 ntinued Reason: Office Medication has bee 0RF NS n Documented as given Coding Level of Care Code Off vis,est,level 3 Diagnoses Tenosynovitis of left hand M65.9 Essential hypertension I10 Hereditary hemochromatosis E83.110 Hemochromatosis type: hereditary Gastric distention K31.89 Type 2 diabetes mellitus with complication, with long-term current use of insulin E11.8 Diabetes mellitus type: type 2 Diabetes mellitus complication status: with unspecified complications Diabetes mellitus technician terminal and repeater insulin use: with senior living use Additional Codes [place] [place] Thumb was injected 09/06/18 1148 <Electronically signed by Aleksandr Duarte DO> Date Aleksandr Yoo Signature: Date (if applicable) CC: SURGERY VISIT REPORT Observed: 08/31/2018 Status: F Source: [facility] 4:40 PM [facility] REPOSITORY [facility] [address] [place] [address] OFFICE VISIT Date of Service: 08/31/18 MR#: [id number] Acct: [id number] Name: YONATHAN COOL Peri De La Cruz Rep #: [id number] : 1960 Provider: Ashutosh Kearns MD Age/Sex: 57/M Location: [facility] Status: Signed Intake Vital Signs08/31/18 Body Mass Index (BMI) 32.8 08/31/18 Height 6 ft 08/31/18 Weight: 246 lb Intake Visit Reasons: poss incarcerated hernia Chief Complaint: abdominal swelling and back pain Buyer Assistant Required: No Is patient in pain?: No Allergies lorazepam [From Ativan] Allergy (Severe, Verified 08/31/18 13:47) Other cephalexin [From Keflex] Adverse Reaction (Severe, Verified 08/31/18 13:47) Nausea/Vom/Diarrhea fluoxetine HCl [From Prozac] Adverse Reaction (Severe, Verified 08/31/18 13:47) Vomiting morphine Adverse Reaction (Severe, Verified 08/31/18 13:47) Rash pregabalin [From Lyrica] Adverse Reaction (Severe, Verified 08/31/18 13:47) hypotension Medications Amlodipine [Norvasc] 10 mg PO DAILY 11/18/16 [History Confirmed 08/31/18] lisinopril 10 mg tablet 10 mg PO QDAY 03/02/18 [History Confirmed 08/31/18] zolpidem 10 mg tablet 10 mg PO QHS PRN #30 tab 07/27/18 [Rx Confirmed 08/31/18] PFSH Medical History Carpal tunnel syndrome on both sides (Chronic) Pain pump (Acute) Lupus (Chronic) Bladder cancer (Chronic) Bone spur of foot (Chronic) Cirrhosis (Chronic) History of pulmonary embolus (PE) (Chronic) PORT PLACEMENT (Acute) Hereditary hemochromatosis (Chronic) Hypercoagulable state (Chronic) Abdominal pain (Acute) Depression (Acute) Nausea (Acute) Hypertension (Chronic) Surgical History History of appendectomy (Acute) History of carpal tunnel surgery of right wrist (Acute) History of cholecystectomy (Acute) History of deviated nasal septum (Acute) History of spinal fusion (Acute) Family History Father Prostate cancer Heart disease Grandfather Diabetes Grandmother Diabetes Mother Hypertension Heart disease Sister Hypertension Sisters x2 Social History Smoking Status: Current every day smoker alcohol intake: never substance use type: does not use what type of physical activity do you participate in: none HPI HPI HPI: YONATHAN COOL, is a 57 M who presents to the office today for urgent consultation regarding a right lateral abdominal mass felt to possibly be an incarcerated hernia. The patient is urgently referred by Dr. Guillaume Duarte and a written copy of my surgical consult recommendations will be returned to him. This is a gentleman while just performed on August 18, 2018 a right carpal tunnel release. That proceeded without consequence. By report the patient has had some bulging in the right lateral abdomen at least for 2-3 weeks. Because of pain in that area and history of bladder cancer and hematuria on August 25, 2018 the patient had a abdominal pelvic CT scan without contrast performed at the [facility]. Postoperative changes in the right inguinal area was noted. There were no acute findings. In specific there were no acute findings regarding the abdominal wall and I have reviewed those films. The patient states he awoke today that his instructed him that the bulging on the right side of his abdomen was far worse. He saw Dr. Duarte and there was concern that the patient had a incarcerated area or mass in this area. Patient was complaining of 8 out of 10 pain. ROS General General: Yes fatigue; no weight change, appetite, colon cancer, breast cancer or weakness HEENT HEENT: Yes difficulty swallowing; no eye injury, eye surgery, swollen glands or hoarseness Endo Endocrine: No thyroid disease, diabetes mellitus, thyroid cancer, Hair loss, heat intolerance or cold intolerance Skin Skin: No rash or changing moles Breast Breast: No left breast lump, right breast lump, nipple discharge, breast pain, abnormal mammogram, abnormal US or breast enlargement Musc Musculoskeletal: Yes back problems; no arthritis, rheumatoid arthritis, gout or joint pain Cardio Cardiovascular: Yes high blood pressure; no murmur, pacemaker, heart disease, atrial fibrillation, heart attack, heart stent, palpitations, shortness of breat with exertion or chest pain Psych Psychiatric: Yes depression; no anxiety or hearing voices Resp Respiratory: No shortness of breath, No sleep apnea, No cough, No COPD, No asthma, No emphysema, No wheezing Gastro Gastrointestinal: Yes abdominal pain, Yes nausea or vomiting, Yes diarrhea, No constipation, No blood in stool, No acid reflux, No hemorrhoids, No ulcers, No gallbladder problem, No black,tarry stools Ozzy Hematologic: No blood thinners, No blood disorders, No bleeding, No anemia, No blood clots Neuro Neurologic: No system reviewed and no additional complaints, except as docu, No as per HPI, No abnormal walking, No abnormal hearing, No abnormal movements, No abnormal speech, No behavioral changes, No burning sensations, No confusion, No seizure-like activity, No unsteadiness, No dizziness, No localized weakness, No frequent falls, No headache(s), No lack of coordination, No loss of vision, No memory loss, Yes numbness, No other visual disturbances, No radiating pain, No restless legs, No sensory deficit, No fainting, Yes tingling, No tremor(s), No weakness, No other Exam Chest Breast Palpation: No nipple discharge Cardio Heart Sounds: no murmurs GI Other: Abdominal examination a little bit challenging today. In order to demonstrate the size of the mass the patient consistently Valsalva and straining down on his abdomen. Upon careful examination I was able to get him to relax to detect that there was no significant abdominal tenderness that the abdomen was soft throughout bowel sounds were present patient seems to have a slight degree of scoliosis there is more prominence of the right mid lateral abdominal wall compared to the left. This is in an area somewhat close to a spiglien hernia but it slightly more lateral and superior. There is no erythema. I cannot detect a fascial defect. There is no warmth. Assessment AND Plan Problems 1. Flank pain R10.9 Plan On today's evaluation I do not believe that this patient has an acute surgical abdomen. The patient seems to have a eventration or diastases of the right flank more so than left. I have a lower degree of suspicion that this represents a spigelien hernia. He has had a previous remote laparoscopic cholecystectomy done per Dr. Rose. There is a 5 mm incision close to this area of bulging but I do not believe the 2 were related. I believe it is reasonable to get a CT of the abdomen with IV and oral contrast. If this demonstrates a ventral hernia then we can proceed as noted. If no ventral hernia is identified that I am not recommending surgical intervention. Certainly would not proceed with any type of surgical repair for eventration or diastases. The patient seemed to be reassured by this information. He left the office walking comfortably with instructions to proceed with the CT. His recent previous CT was not done with contrast. cc: Dr Guillaume Kearns M.D., F.A.C.S. Orders Orders: Coding Level of Care Code Exp prob focused,strt fwd Diagnoses Flank pain R10.9 08/31/18 1640 <Electronically signed by Ashutosh Kearns MD> Date Ashutosh Kearns MD Cosigner Signature: Date (if applicable) CC: Aleksandr Duarte DO ABDOMEN WITH IV Observed: 08/31/2018 Status: F Source: [place] CONTRAST 3:23 PM [facility] REPOSITORY [facility] Imaging Services [address] [place] [address] [place] [address] Abdomen WITH IV Contrast MR#: [id number] Acct: [id number] Name: MARYYONATHAN Jr. Rep #: [id number] : 1960 M 57 From: Francine Mace MD PCP: Aleksandr Duarte DO Status: REG CLI Study: Abdomen WITH IV Contrast Date of Exam: 08/31/18 Exam# [id number] Ordering Dr: Ashutosh Kearns MD STUDY: CT ABDOMEN WITH CONTRAST REASON FOR EXAM: Male, 57 years old. Right-sided abdominal wall swelling for one week. History of bladder cancer and hemochromatosis. RADIATION DOSAGE (If Supplied By Facility): CTDIvol = ( 16.83 ) mGy, DLP = ( 934.18 ) mGycm TECHNIQUE: Transaxial images were obtained post I.V. administration of 100 ml of Isovue 300 contrast, and with oral contrast. Sagittal and coronal images were reconstructed. Individualized dose optimization techniques were used for this CT. COMPARISON: None. FINDINGS: The visualized lung bases are unremarkable. The visualized portions of the heart are within normal limits. Normal liver. Status post cholecystectomy with a normal common bile duct. Normal spleen. Normal pancreas. Normal bilateral adrenal glands. Normal right kidney. Normal left kidney. Normal visualized stomach. Normal small intestine. Diverticulosis of the colon without evidence of acute diverticulitis. The appendix is not included in the [id number]. Normal abdominal aorta. Normal inferior vena cava. Normal retroperitoneum. No apparent asymmetry of the skin, subcutaneous compartment or abdominal wall musculature on the right side. There does appear to be a shallow scar on the left side. There is a subcutaneous epidural device present posteriorly on the left with the epidural catheter ending in the lower thoracic region. There are diffuse degenerative changes of the visualized lumbar spine. CT/Abdomen WITH IV Contrast IMPRESSION: No visible asymmetry of the right abdominal wall relative to the left allowing for small scar on the left at about waist level. Internally, diverticulosis and status post cholecystectomy. Otherwise normal abdomen CT exam. Electronically Signed: Francine Mace MD at 18:05 EST , Service support , CC: Aleksandr Duarte DO; Ashutosh Kearns MD Filler Picker: Signed CBC W/DIFF, AUTOMATED Collected: 08/31/2018 Status: F Source: [place] 3:00 PM [facility] REPOSITORY TYPE CODE TESTS RESULT OUT OF RANGE REFERENCE UNITS LAB L100.1000 4.4-11.0 K/mm3 Normal WBC 6.8 LAB L100.1200 4.6-6.2 M/mm3 Normal RBC 5.13 LAB L100.1300 13.0-16.5 g/dl Normal HGB 16.3 LAB L100.1400 40-54 % Normal HCT 46.0 LAB L100.1500 80-94 fL Normal MCV 89.7 LAB L100.1600 27.0-32.0 pg Normal MCH 31.8 LAB L100.1700 32-36 g/gl Normal MCHC 35.4 LAB L100.1810 11.6-14.6 % Normal RDW CV 13.8 LAB L100.1820 35.1-43.9 fl High RDW SD 45.4 LAB L100.1900 150-450 K/mm3 Normal PLT 193 LAB L100.2000 6.2-12.0 fl Normal MPV 9.6 LAB L100.2100 47-70 % Normal NEUT% 54.8 LAB L100.2200 19-41 % Normal LY% 34.5 LAB L100.2300 0-10 % Normal MONO% 7.9 LAB L100.2400 0-5 % Normal EO% 2.1 LAB L100.2500 0-1 % Normal BASO% 0.4 LAB L100.2550 0.0-0.9 % Normal IM GRAN % 0.300 Result Comment: IG% - Immature Granulocytes (promyelocytes, myelocytes and metamyelocytes) > 1% indicates that a LEFT SHIFT is Present. LAB L100.2620 2.0-7.7 X10 3/uL Normal Absolute Neut 3.7 LAB L100.2720 0.83-4.51 X10 3/ul Normal Absolute Lymph 2.35 Performed By: #### L100.0100 #### [facility] [address] [place], [address] BASIC METABOLIC Collected: 08/31/2018 Status: F Source: [place] PROFILE (BMP) 3:00 PM [facility] REPOSITORY TYPE CODE TESTS RESULT OUT OF RANGE REFERENCE UNITS LAB L501.0100 74-106 mg/dL High GLU 110 Result Comment: Fasting Glucose result from 100 to 125 mg/dL suggests IMPAIRED HOMEOSTASIS per A.D.A. criteria. Please note revised GLUCOSE reference range effective 2017. LAB L501.1000 7-18 mg/dL Normal BUN 9 LAB L501.1100 0.70-1.30 mg/dL Normal CREAT,SERUM 0.81 Result Comment: The validity of the calculated GFR AND GFRAA in patients over 70 years has not been determined. Clinical correlation is essential. LAB L501.1110 >60 mL/min Normal EST GFR 105 Result Comment: Non- GFR Calc LAB L501.1115 >60 mL/min Normal EST GFR - AA 127 Result Comment: GFR Calc LAB L501.1300 10-20 RATIO Normal BUN/CRE 11.1 LAB L501.2200 8.5-10.1 mg/dL CA Normal 8.6 LAB L501.5300 136-145 mmol/L NA Normal 139 LAB L501.5600 3.5-5.1 mmol/L K Normal 4.1 Result Comment: Slight Hemolysis, Result may be falsely increased. LAB L501.5900 98-107 mmol/L Normal CL 105 LAB L501.6100 21.0-32.0 mmol/L Normal CO2 29.0 LAB L501.6200 5-15 Normal 5 GAP Performed By: #### L500.2500 #### [facility] [address] [place], [address] INTERNAL MEDICINE Observed: 08/31/2018 Status: F Source: [place] OFFICE VISIT 1:30 PM [facility] REPOSITORY [facility] [address] [place] [address] [place] [address] OFFICE VISIT Date of Service: 08/31/18 MR#: [id number] Acct: [id number] Name: YONATHAN COOL Jr. Rep #: [id number] : 1960 Provider: Aleksandr Duarte DO Age/Sex: 57/M Location: [facility] Status: Signed Intake Vital Signs08/31/18 Body Mass Index (BMI) 32.8 08/31/18 Height 6 ft Intake Visit Reasons: 3 mo fu Chief Complaint: abdominal swelling and back pain Is patient in pain?: Yes (back and right side) Pain scale (1-10): 9 Allergies lorazepam [From Ativan] Allergy (Severe, Verified 07/26/18 14:24) Other cephalexin [From Keflex] Adverse Reaction (Severe, Verified 07/26/18 14:24) Nausea/Vom/Diarrhea fluoxetine HCl [From Prozac] Adverse Reaction (Severe, Verified 07/26/18 14:24) Vomiting morphine Adverse Reaction (Severe, Verified 07/26/18 14:24) Rash pregabalin [From Lyrica] Adverse Reaction (Severe, Verified 07/26/18 14:24) hypotension Medications Amlodipine [Norvasc] 10 mg PO DAILY 11/18/16 [History Confirmed 08/18/18] lisinopril 10 mg tablet 10 mg PO QDAY 03/02/18 [History Confirmed 08/18/18] zolpidem 10 mg tablet 10 mg PO QHS PRN #30 tab 07/27/18 [Rx Confirmed 08/18/18] PFSH Medical History Carpal tunnel syndrome on both sides (Chronic) Pain pump (Acute) Lupus (Chronic) Bladder cancer (Chronic) Bone spur of foot (Chronic) Cirrhosis (Chronic) History of pulmonary embolus (PE) (Chronic) PORT PLACEMENT (Acute) Hereditary hemochromatosis (Chronic) Hypercoagulable state (Chronic) Depression (Acute) Hypertension (Chronic) Surgical History History of carpal tunnel surgery of right wrist (Acute) History of appendectomy (Acute) History of cholecystectomy (Acute) History of deviated nasal septum (Acute) History of spinal fusion (Acute) Family History Father Prostate cancer Heart disease Grandfather Diabetes Grandmother Diabetes Mother Hypertension Heart disease Sister Hypertension Sisters x2 Social History Smoking Status: Current every day smoker alcohol intake: never substance use type: does not use what type of physical activity do you participate in: none HPI HPI Chief Complaint: abdominal swelling and back pain Details: YONATHAN COOL, is a 57 M who presents to the office today for pain and swelling in the right side. Started about two weeks ago, at that time it was egg sized. Pain is a collic type of pain. No vomiting, no loose stools, but no appetite. Stools have been dark. Pain is worse when he lays on the right side, ok if laying on the left side. He has had a recent CT scan and ultrasound of the liver. ROS Const Constitutional: No weight change, body ache, chills, fatigue, sleep problems, fever(s), change in appetite, snoring, weakness, frequent falls, headache(s) or excessive sweating Eyes Eyes: No change in vision, eye pain, light sensitivity or blurry vision ENT ENT: No headache(s), abnormal hearing, ear pain, tinnitus, nasal congestion, sore throat or neck pain Resp Respiratory: No snoring, cough, shortness of breath or wheezing Cardio Cardiology: No excessive sweating, chest pain at rest, chest pain with exertion, shortness of breath, dyspnea on exertion, palpitations, orthopnea or lightheadedness Gastro GI: Positive for abdominal pain and bloating (right side of abdomen, and groin pain); no change in bowel habits, constipation, diarrhea, vomiting, nausea/dyspepsia or cramping Genitourinary Male: No painful urination, urinary incontinence, urinary frequency, urinary urgency, blood in urine, testicle pain or other Musc Musculoskeletal: Positive for back pain and other; no neck pain, abnormal walking, limited range of motion, numbness or tingling Skin Skin: No redness, dry skin, itching, lesions, wounds or rash Neuro Neurology: No weakness, frequent falls, headache(s), abnormal hearing, abnormal walking, numbness, tingling, abnormal speech, dizziness or memory loss Psych Psychiatric: No change in appetite, No memory loss, No anxiety, No depression, No Thoughts of harming yourself/Others Endo Endocrine: No fatigue, excessive sweating, cold intolerance, increased thirst/drinking, heat intolerance, flushing or increased hunger Aller/Imm Allergy/Immunologic: No wheezing, itchy eyes, hives or seasonal allergy symptoms Ozzy/Lymp Hematologic/Lymphatic: No easy bleeding, easy bruising or enlarged lymph nodes Exam GI Inspection: visible herniation (right side, painful to palpation) Auscultation: hyperactive bowel sounds Palpation: hernia (possible hernia??) ventral Assessment AND Plan Problems 1. Abdominal pain of unknown cause R10.9 Plan This patient presented with an approximately 10 cm bulge in his abdomen off to the right side. It was very tender and very hard bowel,sounds seem to be hyperactive. He relates that this started egg sized and now is much bigger and more painful. I reviewed his recent CT scan and his recent ultrasound which showed no evidence of a mass or a hernia and yet this feels to me like it is a ventral hernia that possibly is starting to strangulate as he is in a lot of pain. Because of that I may do as soon as possible surgical referral to [facility]. Coding Level of Care Code Off vis,est,level 3 Diagnoses Abdominal pain of unknown cause R10.9 08/31/18 1330 <Electronically signed by Aleksandr Duarte DO> Date Aleksandr Duarte DO Cosigner Signature: Date (if applicable) CC: SURGERY VISIT REPORT Observed: 08/25/2018 Status: F Source: [place] 3:26 PM [facility] REPOSITORY [facility] [address] [place] [address]. [address] [place] [address] OFFICE VISIT Date of Service: 08/24/18 MR#: [id number] Acct: [id number] Name: YONATHAN COOL Jr. Rep #: [id number] : 1960 Provider: Dedra Delgado PA-C Age/Sex: 57/M Location: [facility] Status: Signed Intake Intake Visit Reasons: F/U R Carpal Tunnel Release 08/18 Chief Complaint: 3 MO FU Allergies lorazepam [From Ativan] Allergy (Severe, Verified 07/26/18 14:24) Other cephalexin [From Keflex] Adverse Reaction (Severe, Verified 07/26/18 14:24) Nausea/Vom/Diarrhea fluoxetine HCl [From Prozac] Adverse Reaction (Severe, Verified 07/26/18 14:24) Vomiting morphine Adverse Reaction (Severe, Verified 07/26/18 14:24) Rash pregabalin [From Lyrica] Adverse Reaction (Severe, Verified 07/26/18 14:24) hypotension Medications Amlodipine [Norvasc] 10 mg PO DAILY 11/18/16 [History Confirmed 08/18/18] lisinopril 10 mg tablet 10 mg PO QDAY 03/02/18 [History Confirmed 08/18/18] zolpidem 10 mg tablet 10 mg PO QHS PRN #30 tab 07/27/18 [Rx Confirmed 08/18/18] Subjective Details: Patient is a 57 y/o male I am following for right carpal tunnel syndrome. Dr. Kearns performed a right carpal tunnel release on 08/18/18. Patient tolerated the procedure well. Patient notes very little pain. He denies drainage. Objective Details: Right wrist- sutures were removed from incision. Steri-strips were placed. No erythema or infection noted. Assessment AND Plan Problems 1. Carpal tunnel syndrome, bilateral G56.03 Plan - Recommend performing hand exercises - Follow-up in October to schedule left carpal tunnel surgery Coding Level of Care Code Global Post Op Diagnoses Carpal tunnel syndrome, bilateral G56.03 08/25/18 1526 <Electronically signed by Dedra Delgado PA-C> Date Dedra Delgado PA-C Cosigner Signature: Date (if applicable) CC: Aleksandr Duarte DO ABDOMEN/PELVIS WITHOUT Observed: 08/25/2018 Status: F Source: [place] CONT 12:14 PM [facility] REPOSITORY [facility] Imaging Services [address] [place] [address] Abdomen/Pelvis without Cont MR#: [id number] Acct: [id number] Name: YONATHAN COOL Jr. Rep #: [id number] : 1960 M 57 From: Camron Melendez MD PCP: Aleksandr Duarte DO Status: REG CLI Study: Abdomen/Pelvis without Cont Date of Exam: 08/25/18 Exam# [id number] Ordering Dr: Wendy Sanderson HEAD COACH-C STUDY: CT ABDOMEN AND PELVIS WITHOUT CONTRAST REASON FOR EXAM: Male, 57 years old. Right flank pain. Bladder cancer. Hematuria. RADIATION DOSAGE (If Supplied By Facility): CTDIvol = ( 19.39 ) mGy, DLP = ( 1012.29 ) mGycm TECHNIQUE: Transaxial images were obtained from the dome of the diaphragm to the symphysis pubis without oral contrast, and without intravenous contrast. Sagittal and coronal images were reconstructed. Individualized dose optimization techniques were used for this CT. COMPARISON: November 19, 2016 FINDINGS: Stable 0.5 cm right middle lobe nodule. The visualized portions of the heart are within normal limits. Liver is enlarged with diffuse fatty infiltration. There are surgical clips in the gallbladder fossa consistent with a prior cholecystectomy. There is mild splenomegaly. Normal pancreas. Normal bilateral adrenal glands. Normal right kidney. Normal left kidney. No stones or hydronephrosis. Normal visualized stomach. Normal small intestine. There are multiple colonic diverticula consistent with diverticulosis. There is non-visualization of the appendix. Normal abdominal aorta. Normal inferior vena cava. Normal retroperitoneum. Normal urinary bladder. There are prostatic calcifications. There is no free fluid in the abdomen or pelvis. There is postoperative change in the right inguinal region. There are diffuse degenerative changes of the visualized lumbar spine. There is stimulator device with lead extending to the thoracic region CT/Abdomen/Pelvis without Cont IMPRESSION: No stones or hydronephrosis. Hepatosplenomegaly. Fatty infiltration of the liver. Electronically Signed: Camron Melendez MD at 12:58 EST , Service support , CC: ROSA Melendez NP Filler Picker: Signed ABDOMEN SINGLE VIEW Observed: 08/25/2018 Status: F Source: [place] 10:52 AM [facility] REPOSITORY [facility] Imaging Services [address] [place] [address] Abdomen Single View MR#: [id number] Acct: [id number] Name: YONATHAN COOL Jr. Rep #: [id number] : 1960 M 57 From: Reno Arreola MD PCP: Aleksandr Duarte DO Status: REG CLI Study: Abdomen Single View Date of Exam: 08/25/18 Exam# [id number] Ordering Dr: Wendy Sanderson HEAD COACH-C STUDY: X-RAY - ABDOMEN/PELVIS REASON FOR EXAM: Male, 57 years old. Right flank pain. History of kidney stones. TECHNIQUE: Two AP supine views of the abdomen and pelvis. COMPARISON: Comparison is made with prior examination dated November 19, 2016. FINDINGS: Normal visualized lung bases. There is an unremarkable bowel gas pattern. There is a 3.7 mm calculus in the midportion of the right kidney. A battery pack from a pain stimulator device is seen overlying the left lower quadrant. Normal soft tissue structures. Normal visualized osseous structures. RAD/Abdomen Single View IMPRESSION: Findings suggestive of a 3.7 mm calculus in the midportion of the right kidney. Electronically Signed: Reno Arreola MD at 15:16 EST Tel [phone], Service support , CC: Aleksandr Duarte DO; Wendy Sanderson NP Filler Picker: Signed OPERATIVE REPORT Observed: 08/19/2018 Status: F Source: [place] 1:39 PM [facility] REPOSITORY [facility] Medical Records Department [address] [place] [address] Operative Report 08/18/18 1514 MR#: [id number] Acct: [id number] Name: YONATHAN COOL JrSanta Rep #: [id number] : 1960 57 From: Ashutosh Kearns MD PCP: Aleksandr Duarte DO Status: DEP [facility] Location: [facility] Problem List (1) Carpal tunnel syndrome on both sides Status: Chronic Report of Operation Date of Procedure: 08/18/18 Pre-Operative Diagnosis: Right carpal tunnel syndrome Post-Operative Diagnosis: Same Surgery/Procedure Performed:: Right carpal tunnel release Description of Surgical Findings:: Timeout and informed consent was obtained. 57-year-old gent was examined from placement table underwent [place] block anesthesia right upper extremity. Tourniquet of 250 mmHg pressure for 22 minutes. The right hand was sterilely prepped draped. 0.5% Marcaine was used as local anesthetic. A 9 cc was used. A curvilinear incision made the base of the right palm sharp dissection carried down through the subtendinous tissue the palmar fascia was incised the palmar fascia under direct position the median nerve was incised to the proximal wrist crease along the fourth ray was advanced to the mid palm. The palmar fascia was extraordinarily thick and tedious and careful effort was required to carefully transected. Good release was felt to have been achieved. The sub-dermis tissues are proximal interrupted 4-0 chromic. Skin is proximal and simple sutures with 4-0 nylon. Telfa 4 x 4 soft roll Freddy wrap applied. Sponge and instrument and needle counts were reported to the surgeon to be correct. He tolerated the procedure well was taken to the recovery area in satisfactory condition without apparent complication Specimens none drains none blood loss minimal Ashutosh Kearns M.D., F.A.C.S. Type of Anesthesia:: Block,Regional, Local Anesthesiologist: Darell Higuera 08/19/18 1339 <Electronically signed by Ashutosh Kearns MD> Date Ashutosh Kearns MD CC: Aleksandr Duarte DO; Ashutosh Kearns MD Signed DISCHARGE INSTRUCTION Observed: 08/18/2018 Status: F Source: [place] 2:32 PM [facility] REPOSITORY [facility] Medical Records Department [address] [place] [id number] Instructions for Home/Discharge Instructions 08/18/18 1324 MR#: [id number] Acct: [id number] Name: YONATHAN COOL Jr. Rep #: [id number] : 1960 57 From: Ashutosh Kearns MD PCP: Aleksandr Duarte DO Status: REG MAC Discharge Diet: Light diet - advance as tolerated - if you have questions about your diet instructions, please talk to you doctor. Discharge Activity: May Not Drive - for 3 days while taking narcotic pain medicine. May shower in (days): 1 Lifting Restrictions: 5 pounds Call your doctor if your incision/area has: Continuous Slow Oozing, Sudden Increased Bleeding, Increased Pain/ Swelling, Increased Redness, Foul Smelling Discharge Call your doctor if you observe: Fever of 101 or Higher Suture Line Care: Avoid Pulling/Pushing, Avoid Pinching/Bending Additional Dressing/Incision Instructions:: Please keep your right hand clean and dry. You may elevate to eliminate swelling. You may wrap the hand and plastic in order to shower. Allergies/Adverse Reactions: Allergies lorazepam [From Ativan] Allergy (Severe, Verified 07/26/18 14:24) Other cephalexin [From Keflex] Adverse Reaction (Severe, Verified 07/26/18 14:24) Nausea/Vom/Diarrhea fluoxetine HCl [From Prozac] Adverse Reaction (Severe, Verified 07/26/18 14:24) Vomiting morphine Adverse Reaction (Severe, Verified 07/26/18 14:24) Rash pregabalin [From Lyrica] Adverse Reaction (Severe, Verified 07/26/18 14:24) hypotension BLOOD PRESSURE DROPS Medications to take at Discharge Amlodipine [Norvasc] 10 mg PO DAILY 11/18/16 lisinopril 10 mg tablet 10 mg PO QDAY 03/02/18 zolpidem 10 mg tablet 10 mg PO QHS PRN #30 tab 07/27/18 Primary Care Physician: Aleksandr Duarte DO [Primary Care Provider] - Test Results: Test results from this visit will be discussed in further detail at your follow-up appointment, if applicable. Please Follow Up With: Ashutosh Kearns MD - [phone] When: Call to make an appointment to be seen on Wednesday08/18/18 8302 <Electronically signed by Ashutosh Kearns MD> Date Ashutosh Kearns MD CC: Aleksandr Duarte, DO BEDSIDE GLUCOSE Collected: 08/18/2018 Status: F Source: [place] 11:47 AM [facility] REPOSITORY TYPE CODE TESTS RESULT OUT OF RANGE REFERENCE UNITS LAB L501.080 70-110 mg/dL Normal BEDSIDE GLU 105 Result Comment: MANAGEMENT OF PATIENT CARE PER NURSING PROTOCOL Performed By: #### L501.080 #### [facility] Point of Care [address] [place], [place] [id number] CBC-COMPLETE BLOOD CNT Collected: 08/15/2018 Status: F Source: [place] NO DIFF 1:04 PM [facility] REPOSITORY Order Comment: Send Results To: RCEBUL Reason for Laboratory Test PREOP TYPE CODE TESTS RESULT OUT OF RANGE REFERENCE UNITS LAB L100.1000 4.4-11.0 K/mm3 Normal WBC 7.2 LAB L100.1200 4.6-6.2 M/mm3 Normal RBC 5.11 LAB L100.1300 13.0-16.5 g/dl Normal HGB 16.2 LAB L100.1400 40-54 % Normal HCT 45.9 LAB L100.1500 80-94 fL Normal MCV 89.8 LAB L100.1600 27.0-32.0 pg Normal MCH 31.7 LAB L100.1700 32-36 g/gl Normal MCHC 35.3 LAB L100.1810 11.6-14.6 % Normal RDW CV 13.8 LAB L100.1820 35.1-43.9 fl High RDW SD 45.8 LAB L100.1900 150-450 K/mm3 Normal PLT 168 LAB L100.2000 6.2-12.0 fl Normal MPV 10.0 Performed By: #### L100.0500 #### [facility] [address] [place], [address] BASIC METABOLIC Collected: 08/15/2018 Status: F Source: [place] PROFILE (BMP) 1:04 PM [facility] REPOSITORY Order Comment: Send Results To: RCEBUL Reason for Laboratory Test PREOP TYPE CODE TESTS RESULT OUT OF RANGE REFERENCE UNITS LAB L501.0100 74-106 mg/dL High GLU 110 Result Comment: Fasting Glucose result from 100 to 125 mg/dL suggests IMPAIRED HOMEOSTASIS per A.D.A. criteria. Please note revised GLUCOSE reference range effective 2017. LAB L501.1000 7-18 mg/dL Normal BUN 14 LAB L501.1100 0.70-1.30 mg/dL Normal CREAT,SERUM 0.92 Result Comment: The validity of the calculated GFR AND GFRAA in patients over 70 years has not been determined. Clinical correlation is essential. LAB L501.1110 >60 mL/min Normal EST GFR 90 Result Comment: Non- GFR Calc LAB L501.1115 >60 mL/min Normal EST GFR - AA 109 Result Comment: GFR Calc LAB L501.1300 10-20 RATIO Normal BUN/CRE 15.2 LAB L501.2200 8.5-10.1 mg/dL CA Normal 8.6 LAB L501.5300 136-145 mmol/L NA Normal 140 LAB L501.5600 3.5-5.1 mmol/L K Normal 4.0 LAB L501.5900 98-107 mmol/L CL Normal 105 LAB L501.6100 21.0-32.0 mmol/L Normal CO2 23.0 LAB L501.6200 5-15 Normal GAP 12 Performed By: #### L500.2500 #### [facility] [address] [place], [address] SURGERY VISIT REPORT Observed: 07/26/2018 Status: F Source: [place] 2:49 PM [facility] REPOSITORY [facility] [address] [place] [address] OFFICE VISIT Date of Service: 07/26/18 MR#: [id number] Acct: [id number] Name: YONATHAN COOL Jr. 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: No Is patient in pain?: No Allergies lorazepam [From Ativan] Allergy (Severe, Verified 07/26/18 14:24) Other cephalexin [From Keflex] Adverse Reaction (Severe, Verified 07/26/18 14:24) Nausea/Vom/Diarrhea fluoxetine HCl [From Prozac] Adverse Reaction (Severe, Verified 07/26/18 14:24) Vomiting morphine Adverse Reaction (Severe, Verified 07/26/18 14:24) Rash pregabalin [From Lyrica] Adverse Reaction (Severe, Verified 07/26/18 14:24) hypotension Medications Amlodipine [Norvasc] 10 mg PO DAILY 11/18/16 [History Confirmed 07/26/18] lisinopril 10 mg tablet 10 mg PO QDAY 03/02/18 [History Confirmed 07/26/18] [facility] Medical History Carpal tunnel syndrome on both sides (Chronic) Pain pump (Acute) Lupus (Chronic) Bladder cancer (Chronic) Bone spur of foot (Chronic) Cirrhosis (Chronic) History of pulmonary embolus (PE) (Chronic) PORT PLACEMENT (Acute) Hereditary hemochromatosis (Chronic) Hypercoagulable state (Chronic) Depression (Acute) Hypertension (Chronic) Surgical History History of appendectomy (Acute) History of cholecystectomy (Acute) History of deviated nasal septum (Acute) History of spinal fusion (Acute) Family History Father Prostate cancer Heart disease Grandfather Diabetes Grandmother Diabetes Mother Hypertension Heart disease Sister Hypertension Sisters x2 Social History Smoking Status: Current every day smoker alcohol intake: never substance use type: does not use what type of physical activity do you participate in: none HPI HPI HPI: YONATHAN COOL, is a 57 M who presents to the office today for surgical consultation regarding right greater than left carpal tunnel syndrome. The patient is referred by Dr. Aleksandr Duarte and a written copy of my surgical consult will return to him. Mr. Cool has had Dr. Rose assisting with several different procedures. The patient however is referred to me currently because of carpal tunnel syndrome. Patient was hoping to get Workmen's Compensation to help. He went down to [facility]. On April 04, 2018 he had nerve conduction test consistent with bilateral carpal tunnel syndrome moderate to severe on the right and mild on the left. The patient has had cervical injury and surgery causing chronic cervical spine spinal debility. The patient has weakness of the right upper extremity related to this. ROS General General: Yes fatigue; no weight change, appetite, colon cancer, breast cancer or weakness HEENT HEENT: Yes difficulty swallowing; no eye injury, eye surgery, swollen glands or hoarseness Endo Endocrine: No thyroid disease, diabetes mellitus, thyroid cancer, Hair loss, heat intolerance or cold intolerance Skin Skin: No rash or changing moles Breast Breast: No left breast lump, right breast lump, nipple discharge, breast pain, abnormal mammogram, abnormal US or breast enlargement Musc Musculoskeletal: Yes back problems; no arthritis, rheumatoid arthritis, gout or joint pain Cardio Cardiovascular: Yes high blood pressure; no murmur, pacemaker, heart disease, atrial fibrillation, heart attack, heart stent, palpitations, shortness of breat with exertion or chest pain Psych Psychiatric: Yes depression; no anxiety or hearing voices Resp Respiratory: No shortness of breath, No sleep apnea, No cough, No COPD, No asthma, No emphysema, No wheezing Gastro Gastrointestinal: No abdominal pain, No nausea or vomiting, Yes diarrhea, No constipation, No blood in stool, No acid reflux, No hemorrhoids, No ulcers, Yes gallbladder problem, No black,tarry stools Ozzy Hematologic: No blood thinners, Yes blood disorders, No bleeding, No anemia, Yes blood clots Neuro Neurologic: No system reviewed and no additional complaints, except as docu, No as per HPI, No abnormal walking, No abnormal hearing, No abnormal movements, No abnormal speech, No behavioral changes, No burning sensations, No confusion, No seizure-like activity, No unsteadiness, No dizziness, No localized weakness, No frequent falls, No headache(s), No lack of coordination, No loss of vision, No memory loss, Yes numbness, No other visual disturbances, No radiating pain, No restless legs, No sensory deficit, No fainting, Yes tingling, No tremor(s), No weakness, No other Exam Const General: cooperative, comfortable Nutritional Appearance: obese Orientation: alert, awake [facility] Mouth: other (Very heavy staining of carla-aural tobacco) Eyes General: appearance normal, both eyes and all related structures Chest Breast Palpation: No nipple discharge Other: Increased anterior posterior diameter Resp Effort AND Inspection: other (Diminished respiratory excursion) Auscultation: clear to auscultation bilaterally Cardio Rate: regular rate Rhythm: regular rhythm Heart Sounds: no murmurs GI Palpation: soft, no hepatosplenomegaly Neuro General: alert, awake, oriented x3 Extrem Other: Bilateral thenar eminences appears similar. Tinel's positive on the right. 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 Carpal tunnel syndrome on both sides G56.03 Plan The patient has quite symptomatic carpal tunnel syndrome likely on the right. For 2-1/2 months he has been utilizing nighttime wrist splints. He has noted mild but incomplete improvement. I have proposed for him a right carpal tunnel release performed under a luis block anesthesia. He is aware of the technique, benefits, risks, alternatives. Absolutely no guarantees of success have been offered. The patient is very much aware that the already incurred nerve damage may not resolve with time. He has had an opportunity to ask and have questions answered. We will schedule and proceed at his discretion. He will then have an opportunity pending the results on the right and deciding whether he would like to have a staged procedure on the left. Cc: Dr. Aleksandr Kearns M.D., F.A.C.S. Coding Level of Care Code Exp prob focused,strt fwd Diagnoses Carpal tunnel syndrome on both sides G56.03 07/26/18 1449 <Electronically signed by Ashutosh Kearns MD> Date Ashutosh Kearns MD Cosigner Signature: Date (if applicable) CC: Aleksandr Duarte DO ONCOLOGY VISIT REPORT Observed: 06/14/2018 Status: F Source: [place] 1:58 PM [facility] REPOSITORY [facility] [place] [address] OFFICE VISIT Date of Service: 06/14/18 1305 MR#: [id number] Acct: [id number] Name: YONATHAN COOL Jr. Rep #: [id number] : 1960 From: Brenden Sauceda MD Age/Sex: 57/M Location: [facility] Status: Signed - Problem List (1) Hemochromatosis Status: Chronic Qualifiers: Hemochromatosis type: hereditary Qualified Code(s): E83.110 - Hereditary hemochromatosis Comment: Compound Heterozygous C282Y, H63D Mild Fe overload - Date of Service Date of Service:: 06/14/18 - Chief Complaint Hemochromatosis - History of Present Illness Patient is a 57-year-old male who presented in 2012 with abnormal liver functions and cirrhosis and further workup was consistent with hereditary hemochromatosis, double heterozygotes for C282Y and H63D mutation and CHERY. Liver biopsy in 2012 confirmed steatohepatitis and mild iron overload. He was started on a phlebotomy protocol under the care of Dr. Virgen at [facility] with control of his iron overload. He transferred his care to [facility] as of December 2017. His medical history is also notable for a hypercoagulable state with a history of pulmonary embolism and port related thrombosis, diabetes, hypertension, DJD, spondylosis, obesity and H/O superficial bladder cancer (2008) - Past Medical/Social History Past Medical History Cancer: Bladder cancer Social History Social History: No changes Smoking Status Current every day smoker Review of Systems Constitutional:: Denies: Fever, Sweats, Weight loss, Appetite change, Chills Cardiovascular:: Reports: Dyspnea on exertion. Denies: Chest pain, Palpitations, Orthopnea, PND, Shortness of breath Respiratory: Reports: Shortness of breath upon exertion. Denies: Cough, Hemoptysis, Shortness of Breath, Wheezing Gastrointestinal:: Denies: Abdominal pain, Nausea, Vomiting, Diarrhea, Constipation, Hematochezia Genitourinary: Denies: Dysuria, Hematuria, 15, Flank pain Musculoskeletal:: Denies: Back pain, Myalgia, Arthralgia Skin: Denies: Rash, Skin Changes, Wounds Neurological:: Denies: Headache, Dizziness, Visual changes, Tinnitus, Hearing loss Psychiatric: Denies: Anxiety, Depression, Homicidal Ideations, Suicidal Ideations Vital Signs Height 6 ft Weight: 114.215 kg Weight in Pounds 251.8 lbs Pulse Ox 96 - Physical Exam General: Alert, Oriented x3, No apparent distress, - - Overweight ECOG 1 HEENT: Atraumatic, PERRLA, EOMI, Normocephalic Oropharynx:: Dry mucosa Neck:: - - Port okay Cardiac:: Regular rate, Regular rhythm, Normal S1, Normal S2. Negative for: Murmur Lungs: Diminished Abdomen:: Soft, Non-tender, Non-distended. Negative for: Hepatosplenomegaly Extremities:: Negative for: Cyanosis, Edema Neurological: Neuro grossly intact Skin:: Negative for: Lesions, Rash, Petechiae, Ecchymosis Psychiatric:: Appropriate affect, Euthymic Lymphatics:: Negative for: Cervical lymphadenopathy, Supraclavicular lymphadenopathy Laboratory Data: Laboratory Tests RBC 4.47 L Hct 39.2 L Iron Saturation 9.9 L Ferritin 3090 H 26 Tumor Marker AFP RBC Hct Iron Saturation 10.3 L Ferritin 16 L Tumor Marker AFP 1.9 2.0 RBC Hct Iron Saturation Ferritin 46 Tumor Marker AFP Assessment and Plan Hereditary hemochromatosis double heterozygous C282Y and H63D mutation which causes a mild iron overload. Patient has liver cirrhosis primarily due to CHERY on top of his hereditary iron overload. He has been on a phlebotomy protocol since 2013 and has been iron depleted 2018. Plan: 1- Phlebotomy to a target ferritin and transferrin saturation less than 50 while maintaining hematocrit at 36% or above. Patient continues to be iron depleted at the present time and no phlebotomy this month. Follow-up in 3 months 2-screening for hepatocellular cancer is indicated being at a higher risk due to cirrhosis with ultrasound and AFP every 6 months, next is due before end of this year. 3-high risk for smoking induced lung cancer (<1-2 1/2 ppd X40+ years) is a candidate for screening for lung cancer with annual noncontrast CT, screening 2017 negative, next due December 2018. Not motivated to quit. 4-history of PE and catheter related DVT on long-term anticoagulation. Impression and recommendation discussed with patient. Medications: Prescriptions This Visit Medication Instructions Recorded liraglutide 0.6 mg/0.1 mL (18 mg/3 1.2 mg SC DAILY #9 ml 06/08/18 mL) subcutaneous pen injector Primary Care Provider: Xavier Gould Referring Provider: Xavier Gould 06/14/18 1358 <Electronically signed by Brenden Sauceda MD> Date Brenden Sauceda MD Cosigner Signature: Date (if applicable) CC: Xavier Gould MD PROGRESS Observed: 06/09/2018 Status: COMPLETED Source: [place] 11:01 AM [facility] REPOSITORY HNO ID: [id number] Author: Nelly Roblero Service: (none) Author Type: Warehouse Unloader Type: Progress Notes Filed: 06/09/2018 11:02 AM Note Text: Yonathan called he has transferred care to Dr.Douglas Duarte. Nelly Roblero MA CNPN Observed: 06/09/2018 Status: COMPLETED Source: [place] 12:00 AM [facility] REPOSITORY Telephone (FPWADS) YONATHAN COOL ([id number]) 1960 M Date Time Provider Department 06/09/18 BRYN GOULD During your visit today, we recorded the following information about you: Katherine Dior Ma 06/09/2018 2:48 PM Addendum Type of letter/form/fax request - Labs (CBC and Ferritin) 06/08/18 Form received from [facility] and placed on desk () for review Route to AL when form completed for processing Katherine Dior Ma Allergies As of Date: 06/09/2018 Noted Allergy Reaction KEFLEX (CEPHALEXIN) 03/11/2016 11 - Vomiting ATIVAN (LORAZEPAM) 12/13/2017 1 - Mental Status Change LYRICA (PREGABALIN) 05/31/2009 Comments: Pt. passed out and BP drop MORPHINE 09/16/2011 2 - Rash PROZAC (FLUOXETINE HCL) 12/12/2012 8 - GI Upset Date Reviewed: 12/13/2017 Reviewed by: Annetta (Rn) LINH Gupta - Fully Assessed Reason for Visit: Outside Lab Results [753] Cmt: [facility] CBC 06/08/18 Prescriptions as of 06/09/2018 Sig: ONETOUCH ULTRA BLUE TEST STRIP TEST FIVE TIMES DAILY (E11.65* FONDAPARINUX 10 MG/0.8 ML SUB* Inject 0.8 mL subcutaneously * INSULIN DETEMIR (U-100) 100 U* Inject 10 Units subcutaneousl* OXYCODONE-ACETAMINOPHEN 10 MG* Take 1 tablet by mouth every * FOLIC ACID 1 MG TABLET Take 1 tablet by mouth once d* VICTOZA 3-EVERETT 0.6 MG/0.1 ML (* INJECT 1.8 MG SUBCUTANEOUSLY * TRAZODONE 100 MG TABLET Take 1 tablet by mouth daily * BLOOD-GLUCOSE METER KIT 1 Each as needed. SODIUM CHLORIDE 0.9% FLUSH Access implanted vascular acc* HEPARIN LOCK FLUSH (PORCINE) * Access implanted vascular acc* LANCING DEVICE WITH LANCETS K* 1 Each five times daily. (E11* VITAMIN D2 50,000 UNIT CAPSULE TAKE 1 CAPSULE BY MOUTH ONCE * PRIALT INTRATHEC. by INTRATHECAL route. LISINOPRIL 10 MG TABLET Take 1 tablet by mouth once d* AMLODIPINE 5 MG TABLET Take 1 tablet by mouth once d* BLOOD-GLUCOSE METER KIT 1 Each as needed. One Touch M* LANCETS Test blood sugar(s) 5 times d* HEPARIN LOCK FLUSH (PORCINE) * NURSING USE ONLY: USE FOR I* BLOOD SUGAR DIAGNOSTIC, DRUM-* Test blood sugar(s) 1 times d* BLOOD PRESSURE KIT-EXTRA LARG* Use as directed SODIUM CHLORIDE 0.9% FLUSH NURSING USE ONLY: USED FOR * Problem List As Of Date 06/09/2018 Noted Resolved Abdominal or Pelvic Swelling, Mass, or Lump, Ri*INVALID FOR*02/26/2010 Sebaceous Cyst [L72.3] INVALID FOR*02/26/2010 Unspecified Disorders of Bursae and Tendons in *INVALID FOR*02/26/2010 SURGERY FOLLOWUP, UNSPEC [Z09] INVALID FOR*02/26/2010 BENIGN HYPERTENSION [I10] INVALID FOR* DIARRHEA NOS [R19.7] BENIGN NEOPLASM LG BOWEL [D12.6] INVALID FOR* Malignant neoplasm of bladder (HCC) [C67.9] INVALID FOR* CALCULUS OF KIDNEY [N20.0] INVALID FOR* HYPERTONICITY OF BLADDER [N31.8] INVALID FOR* Herniated Cervical Disc [M50.20] INVALID FOR* Tobacco Abuse [Z72.0] INVALID FOR* Chest Pain [R07.9] INVALID FOR*02/26/2010 Closed Fracture of Cervical Spine [S12.9XXA] INVALID FOR* More... HNP (Herniated Nucleus Pulposus) with Myelopath*INVALID FOR* Dysmetabolic syndrome X [E88.81] INVALID FOR* Hemochromatosis [E83.119] INVALID FOR*10/05/2017 Acute venous embolism and thrombosis of unspeci*INVALID FOR*08/01/2014 Other pulmonary embolism and infarction [I26.99]INVALID FOR* Low serum testosterone level [R79.89] INVALID FOR* Vascular port complication [T82.9XXA] INVALID FOR* Cirrhosis (HCC) [K74.60] INVALID FOR* Hereditary hemochromatosis (HCC) [E83.110] INVALID FOR* Hepatic cirrhosis (HCC) [K74.60] INVALID FOR* Type 2 diabetes mellitus without complication, *INVALID FOR* Adjustment disorder with mixed anxiety and depr*INVALID FOR* Coagulopathy (HCC) [D68.9] INVALID FOR* Thromboembolism (HCC) [I74.9] INVALID FOR* Encounter Status:Closed by KATHERINE DIOR MA on 06/09/18 FERRITIN Collected: 06/08/2018 Status: F Source: [place] 1:14 PM [facility] REPOSITORY Order Comment: PLEASE CALL KEMI STAT WITH RESULTS @5692 WG4 6 J TYPE CODE TESTS RESULT OUT OF RANGE REFERENCE UNITS LAB L503.6550 26-388 ng/mL Normal FERRITIN 46 Performed By: #### L503.6550 #### [facility] [address] [place], [address] CBC W/DIFF, AUTOMATED Collected: 06/08/2018 Status: F Source: [place] 1:13 PM [facility] REPOSITORY Order Comment: Reason for Laboratory Test . TYPE CODE TESTS RESULT OUT OF RANGE REFERENCE UNITS LAB L100.1000 4.4-11.0 K/mm3 Normal WBC 6.7 LAB L100.1200 4.6-6.2 M/mm3 Normal RBC 5.31 LAB L100.1300 13.0-16.5 g/dl Normal HGB 16.2 LAB L100.1400 40-54 % Normal HCT 47.0 LAB L100.1500 80-94 fL Normal MCV 88.5 LAB L100.1600 27.0-32.0 pg Normal MCH 30.5 LAB L100.1700 32-36 g/gl Normal MCHC 34.5 LAB L100.1810 11.6-14.6 % High RDW CV 16.1 LAB L100.1820 35.1-43.9 fl High RDW SD 52.4 LAB L100.1900 150-450 K/mm3 Normal PLT 198 LAB L100.2000 6.2-12.0 fl Normal MPV 10.0 LAB L100.2100 47-70 % Normal NEUT% 55.7 LAB L100.2200 19-41 % Normal LY% 33.4 LAB L100.2300 0-10 % Normal MONO% 8.7 LAB L100.2400 0-5 % Normal EO% 1.4 LAB L100.2500 0-1 % Normal BASO% 0.3 LAB L100.2550 0.0-0.9 % Normal IM GRAN % 0.500 Result Comment: IG% - Immature Granulocytes (promyelocytes, myelocytes and metamyelocytes) > 1% indicates that a LEFT SHIFT is Present. LAB L100.2620 2.0-7.7 X10 3/uL Normal Absolute Neut 3.7 LAB L100.2720 0.83-4.51 X10 3/ul Normal Absolute Lymph 2.22 Performed By: #### L100.0100 #### [facility] [address] [place], [place], [address] #### L3300.0700 #### [facility] (refer to report for specific site) refer to report for address and phone number AFP, TUMOR MARKER Collected: 06/08/2018 Status: F Source: [place] 1:13 PM [facility] REPOSITORY Order Comment: Reason for Laboratory Test . Is Patient ? N TYPE CODE TESTS RESULT OUT OF RANGE REFERENCE UNITS LAB L3300.0700 0.0-8.3 ng/mL Normal AFP TUMOR 2.0 2253 Result Comment: Satya ECLIA methodology Performed at: - [facility] [address] [id number] Fabric Worker Supervisor: Jose Auguste PhD, Phone: [phone] Performed By: #### L100.0100 #### [facility] [address] [place], [address] #### L3300.0700 #### [facility] (refer to report for specific site) refer to report for address and phone number HEMOGLOBIN A1C Collected: 06/08/2018 Status: F Source: [place] 1:13 PM [facility] REPOSITORY TYPE CODE TESTS RESULT OUT OF RANGE REFERENCE UNITS LAB L501.9985 4.2-6.3 % Normal HGB A1C 5.3 Performed By: #### L501.9985 #### [facility] [address] [place], [address] PROGRESS Observed: 06/03/2018 Status: COMPLETED Source: [place] 2:45 PM [facility] REPOSITORY O ID: [id number] Author: Nelly Roblero Service: (none) Author Type: Warehouse Unloader Type: Progress Notes Filed: 06/09/2018 11:02 AM Note Text: I have attempted to contact this patient by phone to return their call, schedule an appointment, discuss lab results, etc. Left message to call back. Nelly Roblero MA INTERNAL MEDICINE Observed: 05/31/2018 Status: F Source: [place] GAP OFFICE VISIT 5:03 PM [facility] REPOSITORY [facility] [address] [place] [address] [place] [address] OFFICE VISIT Date of Service: 05/31/18 MR#: [id number] Acct: [id number] Name: YONATHAN COOL Jr. Rep #: [id number] : 1960 Provider: Aleksandr Duarte DO Age/Sex: 57/M Location: [facility] Status: Signed Intake Vital Signs05/31/18 Height 6 ft 05/31/18 Weight: 244 lb 05/31/18 Body Mass Index (BMI) 33.0 05/31/18 Blood Pressure 142/91 Intake Visit Reasons: 3 MO FU Chief Complaint: 3 MO FU Is patient in pain?: Yes (Cervical) Pain scale (1-10): 4 Allergies lorazepam [From Ativan] Allergy (Severe, Verified 05/31/18 13:22) Other cephalexin [From Keflex] Adverse Reaction (Severe, Verified 05/31/18 13:22) Nausea/Vom/Diarrhea fluoxetine HCl [From Prozac] Adverse Reaction (Severe, Verified 05/31/18 13:22) Vomiting morphine Adverse Reaction (Severe, Verified 05/31/18 13:22) Rash pregabalin [From Lyrica] Adverse Reaction (Severe, Verified 05/31/18 13:22) hypotension Medications Amlodipine [Norvasc] 10 mg PO DAILY 11/18/16 [History Confirmed 05/31/18] Ergocalciferol [Vitamin D] 50,000 unit PO Q7D 11/18/16 [History Confirmed 05/31/18] Liraglutide [Victoza] 1.8 units SQ DAILY 11/18/16 [History Confirmed 05/31/18] Ziconotide Acetate [Prialt] 1.161 mcg IT CONT 11/18/16 [History Confirmed 05/31/18] lisinopril 10 mg tablet 10 mg PO QDAY 03/02/18 [History Confirmed 05/31/18] zaleplon 10 mg capsule 10 mg PO QDAY #30 cap 03/02/18 [Rx Confirmed 05/31/18] zolpidem 10 mg tablet 10 mg PO QHS PRN #20 tab 05/31/18 [Rx Confirmed 05/31/18] PFSH Medical History Carpal tunnel syndrome on both sides (Chronic) Pain pump (Acute) Lupus (Chronic) Bladder cancer (Chronic) Bone spur of foot (Chronic) Cirrhosis (Chronic) History of pulmonary embolus (PE) (Chronic) PORT PLACEMENT (Acute) Hereditary hemochromatosis (Chronic) Hypercoagulable state (Chronic) Surgical History History of appendectomy (Acute) History of cholecystectomy (Acute) History of deviated nasal septum (Acute) History of spinal fusion (Acute) Family History Father Prostate cancer Heart disease Grandfather Diabetes Grandmother Diabetes Mother Hypertension Heart disease Sister Hypertension Sisters x2 Social History Smoking Status: Current every day smoker alcohol intake: never substance use type: does not use what type of physical activity do you participate in: none HPI HPI Chief Complaint: 3 MO FU Details: YONATHAN COOL, is a 57 M who presents to the office today for a follow up on his diabetes and for pain in the left hand. ROS Const Constitutional: No chills, fatigue, fever(s), frequent falls, malaise, weakness, sleep problems or change in appetite Eyes Eyes: No blurry vision, change in vision, double vision, discharge or visual disturbances ENT ENT: No abnormal hearing, ear pain, ear pressure, tinnitus or dizziness/vertigo Resp Respiratory: No cough, shortness of breath or wheezing Cardio Cardiology: No chest pain at rest, chest pain with exertion, shortness of breath, dyspnea on exertion, generalized swelling, irregular heart rhythm, lightheadedness, orthopnea, fast heart rate or palpitations Gastro GI: No abdominal pain, change in bowel habits, constipation, diarrhea, nausea/dyspepsia or vomiting Genitourinary Male: No difficulty urinating, burning urination, painful urination, urinary incontinence, urinary frequency, urinary urgency, urinary hesitancy, urinary retention, blood in urine, Frequent nighttime urination/ nocturia, sexual problems, testicle lump or testicle pain Musc Musculoskeletal: Positive for joint pain (Base Lt index finger), back pain (Cervical) and joint swelling (Base of Left index finger); no limited range of motion, muscle weakness, numbness or tingling Skin Skin: No change in skin color, itching, rash or wounds Breast Breast: No breast lump or breast pain Neuro Neurology: No frequent falls, weakness, abnormal hearing, numbness, tingling, unsteady gait/balance, dizziness, loss of vision, memory loss or visual disturbances Psych Psychiatric: No memory loss, No anxiety, No change in appetite, No depression, No Thoughts of harming yourself/Others Endo Endocrine: No fatigue, heat intolerance, increased thirst/drinking, increased hunger or increased urination Aller/Imm Allergy/Immunologic: No wheezing, itchy eyes or seasonal allergy symptoms Ozzy/Lymp Hematologic/Lymphatic: No easy bleeding, easy bruising or enlarged lymph nodes Exam Const General: cooperative Nutritional Appearance: average body habitus Orientation: oriented x3 HENMT Head: normal to inspection Ears: hearing grossly normal bilaterally Nose: external nose normal Face and sinus: normal facial exam Mouth: oral mucosae normal Teeth and gingiva: dentition normal Throat: posterior oropharynx normal Eyes General: appearance normal, both eyes and all related structures Neck Neck: normal visual inspection, no lymphadenopathy Neck mass: No Chest Chest palpation AND inspection: normal inspection of the chest Resp Effort AND Inspection: normal respiratory effort Auscultation: Bilateral: Clear to Auscultation Cardio Rate: regular rate Rhythm: regular rhythm GI Inspection: normal to inspection Auscultation: normal bowel sounds Percussion: normal to percussion Palpation: soft Musc Musculoskeletal: No muscle weakness Skin General: no rashes or lesions noted Neuro Cranial Nerves: CN's II-XI intact bilaterally Psych Appearance: grossly normal Mental Status: mental status grossly normal Office Procedures Ortho Injections Injections Details: The patient's left thumb was injected with a mixture of 20 mg of Kenalog and 1 cc of 1% Xylocaine. The injection was done with a 25-gauge needle into the area of maximal pain of his tenosynovitis. Assessment AND Plan 1. Essential hypertension I10 Plan This patient's blood pressure was borderline high. When repeated by the advanced nursing professor was with me it was normal however so I feel it is well controlled. 2. Type 2 diabetes mellitus with complication, with long-term current use of insulin E11.8 Plan The last time the patient was in his hemoglobin A1c was 5.2 I stopped his nighttime insulin but he was still having hypoglycemic spells so on his own he stopped his Victoza and feels that his sugars are still normal which we will follow-up with by doing another hemoglobin A1c. 3. Status post cervical spinal fusion Z98.1 Plan His arm pain is almost gone he has some restriction of motion with the neck but he says in terms of healing he feels close to 100%. 4. Hereditary hemochromatosis E83.110 Compound Heterozygous C282Y, H63D Mild Fe overload Plan Apparently the rate and cost analyst is questioning the diagnosis since he has not had a phlebotomy since September and when his serum iron was drawn it was actually quite low so further workup is being done for this problem. 5. Tenosynovitis of left hand M65.9 Plan Patient's left thumb was injected with 20 mg of Kenalog and 1 cc of Xylocaine he had obvious tenosynovitis from repetitive use of a rake of the thumb was extremely painful he had some slight relief after the injection but I anticipate this will clear up the problem. Orders Orders: Medications New: Plan Detail Other Orders Orders: Other Medications New: Follow Up 6 Months Coding Level of Care Code Off vis,new,level 3 Diagnoses Essential hypertension I10 Type 2 diabetes mellitus with complication, with long-term current use of insulin E11.8 Diabetes mellitus complication status: with unspecified complications Diabetes mellitus technician terminal and repeater insulin use: with technician terminal and repeater use Diabetes mellitus type: type 2 Status post cervical spinal fusion Z98.1 Hereditary hemochromatosis E83.110 Hemochromatosis type: hereditary Tenosynovitis of left hand M65.9 Time Spent (min) 30 05/31/18 1703 <Electronically signed by Aleksandr Duarte DO> Date Aleksandr Duarte DO Cosigner Signature: Date (if applicable) CC: PROGRESS Observed: 05/30/2018 Status: COMPLETED Source: [place] 10:14 AM [facility] REPOSITORY O ID: [id number] Author: Nelly Roblero Service: (none) Author Type: Warehouse Unloader Type: Progress Notes Filed: 06/09/2018 11:02 AM Note Text: PHMA TEAMLET DOCUMENTATION Provider Action/FYI: Patient needs appointment, needs labs ordered, needs Foot PSR Action/FYI: Teamlet has identified patient by name and date of . Team: DR. GOULD, Nelly Roblero MA ? Last Office Visit:Visit date not found ? Next Office Visit: Visit date not found ? Last BP/Labs: Blood Pressure: Last 3 Encounter BP Readings: Date: BP: 12/13/2017 144/87 10/07/2017 152/87 10/05/2017 142/92 Lipids: Cholesterol, Total (mg/dL) Date Value 08/26/2017 169 02/21/2016 151 HDL Cholesterol (mg/dL) Date Value 08/26/2017 33 02/21/2016 38 LDL Cholesterol (mg/dL) Date Value 08/26/2017 Unable to calculate due to increased Triglycerides. See LDL-Chol, Direct. 02/21/2016 64 Triglyceride (mg/dL) Date Value 08/26/2017 492 02/21/2016 246 HGB A1C: Lab Results Component Value Date HBA1C 5.3 08/26/2017 HBA1C 5.7 03/19/2016 HBA1C 7.4 12/03/2014 TSH: TSH (uU/mL) Date Value 12/03/2014 2.060 10/11/2013 1.130 ) Care Gap: DM - Need Urine Albumin / NOT checked in last 12 months HYPERTENISON not below 140/90 Plan: ? Confirm PCP / Status ? Type of appointment needed: Follow-up Provider Tam ? Consultation Appointments: No patient outreach needed at this time ? Labs, HM and Immunization: Labs: CMP HGB A1C Lipids Diabetic Foot Exam Nelly Roblero MA CNPTOUTREACH Observed: 05/30/2018 Status: COMPLETED Source: [place] 12:00 AM [facility] REPOSITORY Patient Outreach (FAMPWS) YONATHAN COOL ([id number]) 1960 M Date Time Provider Department 05/30/18 NELLY ROBLERO) PEDRITO During your visit today, we recorded the following information about you: Nelly Roblero MA 06/09/2018 11:02 AM Signed [facility] TEAMLET DOCUMENTATION Provider Action/FYI: Patient needs appointment, needs labs ordered, needs Foot PSR Action/FYI: Teamlet has identified patient by name and date of . Team: DR. GOULD, Nelly Roblero MA ? Last Office Visit:Visit date not found ? Next Office Visit: Visit date not found ? Last BP/Labs: Blood Pressure: Last 3 Encounter BP Readings: Date: BP: 12/13/2017 144/87 10/07/2017 152/87 10/05/2017 142/92 Lipids: Cholesterol, Total (mg/dL) Date Value 08/26/2017 169 02/21/2016 151 HDL Cholesterol (mg/dL) Date Value 08/26/2017 33 02/21/2016 38 LDL Cholesterol (mg/dL) Date Value 08/26/2017 Unable to calculate due to increased Triglycerides. See LDL-Chol, Direct. 02/21/2016 64 Triglyceride (mg/dL) Date Value 08/26/2017 492 02/21/2016 246 HGB A1C: Lab Results Component Value Date HBA1C 5.3 08/26/2017 HBA1C 5.7 03/19/2016 HBA1C 7.4 12/03/2014 TSH: TSH (uU/mL) Date Value 12/03/2014 2.060 10/11/2013 1.130 ) Care Gap: DM - Need Urine Albumin / NOT checked in last 12 months HYPERTENISON not below 140/90 Plan: ? Confirm PCP / Status ? Type of appointment needed: Follow-up Provider Tam ? Consultation Appointments: No patient outreach needed at this time ? Labs, HM and Immunization: Labs: CMP HGB A1C Lipids Diabetic Foot Exam MERVAT Russ MA 06/09/2018 11:02 AM Signed I have attempted to contact this patient by phone to return their call, schedule an appointment, discuss lab results, etc. Left message to call back. MERVAT Russ MA 06/09/2018 11:02 AM Signed Yonathan called he has transferred care to Dr.Douglas Duarte. Nelly Roblero MA Allergies As of Date: 05/30/2018 Noted Allergy Reaction KEFLEX (CEPHALEXIN) 03/11/2016 11 - Vomiting ATIVAN (LORAZEPAM) 12/13/2017 1 - Mental Status Change LYRICA (PREGABALIN) 05/31/2009 Comments: Pt. passed out and BP drop MORPHINE 09/16/2011 2 - Rash PROZAC (FLUOXETINE HCL) 12/12/2012 8 - GI Upset Date Reviewed: 12/13/2017 Reviewed by: Annetta (Rn) LINH Gupta - Fully Assessed Reason for Visit: [facility]/Care Gap Outreach [[id number]] Primary Visit Diagnosis:Type 2 diabetes mellitus without complication, with long-term current use of insulin (HCC) [E11.9, Z79.4] Other Visit Diagnosis:Screening for hyperlipidemia [Z13.220] Prescriptions as of 05/30/2018 Sig: ONETOUCH ULTRA BLUE TEST STRIP TEST FIVE TIMES DAILY (E11.65* FONDAPARINUX 10 MG/0.8 ML SUB* Inject 0.8 mL subcutaneously * INSULIN DETEMIR (U-100) 100 U* Inject 10 Units subcutaneousl* OXYCODONE-ACETAMINOPHEN 10 MG* Take 1 tablet by mouth every * FOLIC ACID 1 MG TABLET Take 1 tablet by mouth once d* VICTOZA 3-EVERETT 0.6 MG/0.1 ML (* INJECT 1.8 MG SUBCUTANEOUSLY * TRAZODONE 100 MG TABLET Take 1 tablet by mouth daily * BLOOD-GLUCOSE METER KIT 1 Each as needed. SODIUM CHLORIDE 0.9% FLUSH Access implanted vascular acc* HEPARIN LOCK FLUSH (PORCINE) * Access implanted vascular acc* LANCING DEVICE WITH LANCETS K* 1 Each five times daily. (E11* VITAMIN D2 50,000 UNIT CAPSULE TAKE 1 CAPSULE BY MOUTH ONCE * PRIALT INTRATHEC. by INTRATHECAL route. LISINOPRIL 10 MG TABLET Take 1 tablet by mouth once d* AMLODIPINE 5 MG TABLET Take 1 tablet by mouth once d* BLOOD-GLUCOSE METER KIT 1 Each as needed. One Touch M* LANCETS Test blood sugar(s) 5 times d* HEPARIN LOCK FLUSH (PORCINE) * NURSING USE ONLY: USE FOR I* BLOOD SUGAR DIAGNOSTIC, DRUM-* Test blood sugar(s) 1 times d* BLOOD PRESSURE KIT-EXTRA LARG* Use as directed SODIUM CHLORIDE 0.9% FLUSH NURSING USE ONLY: USED FOR * Problem List As Of Date 05/30/2018 Noted Resolved Abdominal or Pelvic Swelling, Mass, or Lump, Ri*INVALID FOR*02/26/2010 Sebaceous Cyst [L72.3] INVALID FOR*02/26/2010 Unspecified Disorders of Bursae and Tendons in *INVALID FOR*02/26/2010 SURGERY FOLLOWUP, UNSPEC [Z09] INVALID FOR*02/26/2010 BENIGN HYPERTENSION [I10] INVALID FOR* DIARRHEA NOS [R19.7] BENIGN NEOPLASM LG BOWEL [D12.6] INVALID FOR* Malignant neoplasm of bladder (HCC) [C67.9] INVALID FOR* CALCULUS OF KIDNEY [N20.0] INVALID FOR* HYPERTONICITY OF BLADDER [N31.8] INVALID FOR* Herniated Cervical Disc [M50.20] INVALID FOR* Tobacco Abuse [Z72.0] INVALID FOR* Chest Pain [R07.9] INVALID FOR*02/26/2010 Closed Fracture of Cervical Spine [S12.9XXA] INVALID FOR* More... HNP (Herniated Nucleus Pulposus) with Myelopath*INVALID FOR* Dysmetabolic syndrome X [E88.81] INVALID FOR* Hemochromatosis [E83.119] INVALID FOR*10/05/2017 Acute venous embolism and thrombosis of unspeci*INVALID FOR*08/01/2014 Other pulmonary embolism and infarction [I26.99]INVALID FOR* Low serum testosterone level [R79.89] INVALID FOR* Vascular port complication [T82.9XXA] INVALID FOR* Cirrhosis (HCC) [K74.60] INVALID FOR* Hereditary hemochromatosis (HCC) [E83.110] INVALID FOR* Hepatic cirrhosis (HCC) [K74.60] INVALID FOR* Type 2 diabetes mellitus without complication, *INVALID FOR* Adjustment disorder with mixed anxiety and depr*INVALID FOR* Coagulopathy (HCC) [D68.9] INVALID FOR* Thromboembolism (HCC) [I74.9] INVALID FOR* Encounter Status:Closed by NELLY ROBLERO on 06/09/18 ONCOLOGY VISIT REPORT Observed: 03/15/2018 Status: F Source: [place] 3:03 PM [facility] REPOSITORY [facility] [place] [address] OFFICE VISIT Date of Service: 03/15/18 1316 MR#: [id number] Acct: [id number] Name: YONATHAN COOL Jr. Rep #: [id number] : 1960 From: Brenden Sauceda MD Age/Sex: 57/M Location: ONC Status: Signed - Problem List (1) Hemochromatosis Status: Chronic Qualifiers: Hemochromatosis type: hereditary Qualified Code(s): E83.110 - Hereditary hemochromatosis Comment: Compound Heterozygous C282Y, H63D Mild Fe overload - Date of Service Date of Service:: 03/15/18 - Chief Complaint Hemochromatosis - History of Present Illness Patient is a 57-year-old male who presented in 2012 with abnormal liver functions and cirrhosis and further workup was consistent with hereditary hemochromatosis, double heterozygotes for C282Y and H63D mutation and CHERY. Liver biopsy in 2012 confirmed steatohepatitis and mild iron overload. He was started on a phlebotomy protocol under the care of Dr. Virgen at [facility] with control of his iron overload. He transferred his care to [facility] as of December 2017. His medical history is also notable for a hypercoagulable state with a history of pulmonary embolism and port related thrombosis, diabetes, hypertension, DJD, spondylosis, obesity and H/O superficial bladder cancer (2008) - Past Medical/Social History Past Medical History Cancer: Bladder cancer Social History Social History: No changes Smoking Status Current every day smoker Review of Systems Constitutional:: Reports: -. Denies: Fever, Sweats, Weight loss, Appetite change, Chills Cardiovascular:: Reports: Dyspnea on exertion. Denies: Chest pain, Palpitations, Orthopnea, PND, Shortness of breath Respiratory: Reports: Shortness of breath upon exertion. Denies: Cough, Hemoptysis, Shortness of Breath, Wheezing Gastrointestinal:: Denies: Abdominal pain, Nausea, Vomiting, Diarrhea, Constipation, Hematochezia Genitourinary: Denies: Dysuria, Hematuria, 15, Flank pain Musculoskeletal:: Denies: Back pain, Myalgia, Arthralgia Skin: Denies: Rash, Skin Changes, Wounds Neurological:: Denies: Headache, Dizziness, Visual changes, Tinnitus, Hearing loss Psychiatric: Denies: Anxiety, Depression, Homicidal Ideations, Suicidal Ideations Vital Signs Height 6 ft Weight: 114.215 kg Weight in Pounds 251.8 lbs Pulse Ox 96 - Physical Exam General: Alert, Oriented x3, No apparent distress, - - ECOG 1 HEENT: Atraumatic, PERRLA, EOMI, Normocephalic Oropharynx:: Dry mucosa Neck:: Supple, Trachea midline. Negative for: JVD, bilateral Cardiac:: Regular rate, Regular rhythm, Normal S1, Normal S2. Negative for: Murmur Lungs: Clear to auscultation, Diminished, Excusion symmetrical. Negative for: Rhonchi, Wheezes Abdomen:: Soft, Non-tender, Non-distended. Negative for: Hepatosplenomegaly Extremities:: Negative for: Cyanosis, Edema Neurological: Neuro grossly intact Skin:: Negative for: Lesions, Rash, Petechiae, Ecchymosis Psychiatric:: Appropriate affect, Euthymic Lymphatics:: Axillary lymphadenopathy. Negative for: Cervical lymphadenopathy, Supraclavicular lymphadenopathy Laboratory Data: Laboratory Tests Ferritin 3090 H 26 16 L Assessment and Plan Hereditary hemochromatosis double heterozygous C282Y and H63D mutation which causes a mild iron overload. Patient has liver cirrhosis primarily due to CHERY on top of his hereditary iron overload. He has been on a phlebotomy protocol since 2012 and has been iron depleted 2018. Plan: 1- Phlebotomy to a target ferritin and transferrin saturation less than 50 while maintaining hematocrit at 36% or above. Patient is iron depleted at the present time and no phlebotomy this month. Follow-up in 3 months 2-screening for hepatocellular cancer is indicated being at a higher risk due to cirrhosis with ultrasound and AFP every 6 months, next is 06/2018. 3-high risk for smoking induced lung cancer (<1-2 1/2 ppd X40+ years) is a candidate for screening for lung cancer with annual noncontrast CT, screening 2017 negative, next due December 2018. Not motivated to quit. 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 Long-term systemic anticoagulation is indicated. Choice of agent is to the discretion of patient's primary care, insurance coverage and affordability. Impression and recommendation discussed with patient. Primary Care Provider: Xavier Gould Referring Provider: Xavier Gould 03/15/18 3718 <Electronically signed by Brenden Sauceda MD> Date Lamontecolin Komal Trujillo Signature: Date (if applicable) CC: COMPREHENSIVE METABOLIC Collected: 03/08/2018 Status: F Source: [place] JARRE[place] 2:30 PM [facility] REPOSITORY TYPE CODE TESTS RESULT OUT OF RANGE REFERENCE UNITS LAB L501.0100 74-106 mg/dL High GLU 128 Result Comment: Fasting Glucose result greater than or equal to 126 mg/dL suggests DIABETES MELLITUS per A.D.A. criteria. Please note revised GLUCOSE reference range effective 2017. LAB L501.1000 7-18 mg/dL Normal BUN 15 LAB L501.1100 0.70-1.30 mg/dL Normal CREAT,SERUM 0.94 Result Comment: The validity of the calculated GFR AND GFRAA in patients over 70 years has not been determined. Clinical correlation is essential. LAB L501.1110 >60 mL/min Normal EST GFR 88 Result Comment: Non- GFR Calc LAB L501.1115 >60 mL/min Normal EST GFR - AA 106 Result Comment: GFR Calc LAB L501.1255 ml/min Normal Estimated CRCL 97.46 LAB L501.1300 10-20 RATIO Normal BUN/CRE 15.9 LAB L501.1500 6.4-8. g/dL Normal 2 T PROT 7.2 LAB L501.1800 3.2-5. g/dL Normal 0 ALB 3.7 LAB L501.1950 2.2-4. g/dL Normal 2 GLOB 3.5 LAB L501.2000 0.9-2. RATIO Normal 4 A/G 1.1 LAB L501.2200 8.5-10 mg/dL Low .1 CA 8.4 LAB L501.4100 15-37 U/L Normal AST 18 LAB L501.4305 45-117 U/L High ALK P 126 LAB L501.4405 16-61 U/L Normal ALT 37 LAB L501.4600 0.20-1 mg/dL Normal .00 T BILI 0.20 LAB L501.5300 136-14 mmol/L Normal 5 NA 138 LAB L501.5600 3.5-5. mmol/L Normal 1 K 3.5 LAB L501.5900 98-107 mmol/L Normal CL 106 LAB L501.6100 21.0-3 mmol/L Normal 2.0 CO2 28.0 LAB L501.6200 5-15 Low GAP 4 Performed By: #### L500.4050, L501.9985 #### [facility] [address] [place], [address] HEMOGLOBIN A1C Collected: 03/08/2018 Status: F Source: [place] 2:30 PM [facility] REPOSITORY TYPE CODE TESTS RESULT OUT OF RANGE REFERENCE UNITS LAB L501.9985 4.2-6.3 % Normal HGB A1C 5.6 Performed By: #### L500.4050, L501.9985 #### [facility] [address] [place], [address] CBC W/DIFF, AUTOMATED Collected: 03/08/2018 Status: F Source: [place] 2:25 PM [facility] REPOSITORY Order Comment: Reason for Laboratory Test . TYPE CODE TESTS RESULT OUT OF RANGE REFERENCE UNITS LAB L100.1000 4.4-11.0 K/mm3 Normal WBC 5.4 LAB L100.1200 4.6-6.2 M/mm3 Normal RBC 5.13 LAB L100.1300 13.0-16.5 g/dl Normal HGB 14.6 LAB L100.1400 40-54 % Normal HCT 43.6 LAB L100.1500 80-94 fL Normal MCV 85.0 LAB L100.1600 27.0-32.0 pg Normal MCH 28.5 LAB L100.1700 32-36 g/gl Normal MCHC 33.5 LAB L100.1810 11.6-14.6 % High RDW CV 15.4 LAB L100.1820 35.1-43.9 fl High RDW SD 47.9 LAB L100.1900 150-450 K/mm3 Normal PLT 184 LAB L100.2000 6.2-12.0 fl Normal MPV 9.7 LAB L100.2100 47-70 % Normal NEUT% 47.6 LAB L100.2200 19-41 % Normal LY% 40.0 LAB L100.2300 0-10 % Normal MONO% 9.6 LAB L100.2400 0-5 % Normal EO% 2.2 LAB L100.2500 0-1 % Normal BASO% 0.4 LAB L100.2550 0.0-0.9 % Normal IM GRAN % 0.200 Result Comment: IG% - Immature Granulocytes (promyelocytes, myelocytes and metamyelocytes) > 1% indicates that a LEFT SHIFT is Present. LAB L100.2620 2.0-7.7 X10 3/uL Normal Absolute Neut 2.6 LAB L100.2720 0.83-4.51 X10 3/ul Normal Absolute Lymph 2.17 Performed By: #### L100.0100, L503.6030, L503.6550 #### [facility] [address] [place], [place], [id number] IRON+IRON BINDING Collected: 03/08/2018 Status: F Source: [place] 2:25 PM [facility] REPOSITORY Order Comment: Reason for Laboratory Test . TYPE CODE TESTS RESULT OUT OF RANGE REFERENCE UNITS LAB L503.6075 250-450 ug/dL TIBC Normal 339 LAB L503.6150 65-175 ug/dL Low IRON 35 LAB L503.6250 15.0-55.0 % Low IRON SATURATION 10.3 Performed By: #### L100.0100, L503.6030, L503.6550 #### [facility] [address] [place], [place], [address] FERRITIN Collected: 03/08/2018 Status: F Source: [place] 2:25 PM [facility] REPOSITORY Order Comment: Reason for Laboratory Test . TYPE CODE TESTS RESULT OUT OF REFERENCE UNITS [facility] L503.6550 26-388 ng/mL Low FERRITIN 16 Performed By: #### L100.0100, L503.6030, L503.6550 #### [facility] [address] [place], [place], [id number] INTERNAL MEDICINE Observed: 03/02/2018 Status: F Source: [facility] OFFICE VISIT 3:45 PM [facility] [address] [place] [address] [place] [address] OFFICE VISIT Date of Service: 03/02/18 MR#: [id number] Acct: [id number] Name: YONATHAN COOL JrSanta Rep #: [id number] : 1960 Provider: Aleksandr Duarte DO Age/Sex: 57/M Location: [facility] Status: Signed Intake Vital Signs03/02/18 Height 6 ft 03/02/18 Weight: 254 lb 03/02/18 Body Mass Index (BMI) 34.4 03/02/18 Blood Pressure 134/84 Intake Visit Reasons: EST CARE Chief Complaint: Est care Is patient in pain?: Yes (cervical spine) Pain scale (1-10): 4 Allergies lorazepam [From Ativan] Allergy (Severe, Verified 03/02/18 13:09) Other cephalexin [From Keflex] Adverse Reaction (Severe, Verified 03/02/18 13:09) Nausea/Vom/Diarrhea fluoxetine HCl [From Prozac] Adverse Reaction (Severe, Verified 03/02/18 13:09) Vomiting morphine Adverse Reaction (Severe, Verified 03/02/18 13:09) Rash pregabalin [From Lyrica] Adverse Reaction (Severe, Verified 03/02/18 13:09) hypotension Medications Amlodipine [Norvasc] 10 mg PO DAILY 11/18/16 [History Confirmed 03/02/18] Ergocalciferol [Vitamin D] 50,000 unit PO Q7D 11/18/16 [History Confirmed 03/02/18] Liraglutide [Victoza] 1.8 units SQ DAILY 11/18/16 [History Confirmed 01/11/18] Ziconotide Acetate [Prialt] 1.161 mcg IT CONT 11/18/16 [History Confirmed 03/02/18] Fondaparinux Sodium [Arixtra] 10 mg SQ DAILY 07/05/17 [History Confirmed 03/02/18] insulin detemir (U-100) 100 unit/mL (3 mL) subcutaneous pen 10 unit SC QHS ml 03/02/18 [History Confirmed 03/02/18] lisinopril 10 mg tablet 10 mg PO QDAY 03/02/18 [History Confirmed 03/02/18] trazodone 100 mg tablet 100 mg PO QDAY 03/02/18 [History Confirmed 03/02/18] zaleplon 10 mg capsule 10 mg PO QDAY #30 cap 03/02/18 [Rx Confirmed 03/02/18] PFSH Medical History Bladder cancer (Acute) Bone spur of foot (Acute) Cirrhosis (Acute) Hereditary hemochromatosis (Acute) History of pulmonary embolus (PE) (Acute) Hypercoagulable state (Acute) Lupus (Acute) PORT PLACEMENT (Acute) Pain pump (Acute) Surgical History History of appendectomy (Acute) History of cholecystectomy (Acute) History of deviated nasal septum (Acute) History of spinal fusion (Acute) Family History Father Prostate cancer Heart disease Grandfather Diabetes Grandmother Diabetes Mother Hypertension Heart disease Sister Hypertension Sisters x2 Social History Smoking Status: Current every day smoker alcohol intake: never substance use type: does not use what type of physical activity do you participate in: none HPI HPI Chief Complaint: Est care Details: YONATHAN COOL, is a 57 M who presents to the office today for a new doctor visit he has multiple problems ROS Const Constitutional: Positive for fatigue and weakness; no chills, fever(s), frequent falls, malaise, sleep problems or change in appetite Eyes Eyes: Positive for change in vision (Vision loss); no blurry vision, double vision, discharge or visual disturbances ENT ENT: Positive for sore throat (When coughs, chews); no abnormal hearing, ear pain, ear pressure, tinnitus or dizziness/vertigo Resp Respiratory: Positive for cough and shortness of breath; no wheezing Cardio Cardiology: No chest pain at rest, chest pain with exertion, shortness of breath, dyspnea on exertion, generalized swelling, irregular heart rhythm, lightheadedness, orthopnea, fast heart rate or palpitations Gastro GI: Positive for abdominal pain and diarrhea; no change in bowel habits, constipation, nausea/dyspepsia or vomiting Genitourinary Male: Positive for blood in urine (Cystoscopy 03/03/18); no difficulty urinating, burning urination, painful urination, urinary incontinence, urinary frequency, urinary urgency, urinary hesitancy, urinary retention, Frequent nighttime urination/ nocturia, sexual problems, testicle lump or testicle pain Musc Musculoskeletal: Positive for joint pain, numbness, tingling, other (Restless leg) and stiffness; no back pain, joint swelling, limited range of motion or muscle weakness Skin Skin: No change in skin color, itching, rash or wounds Breast Breast: No breast lump or breast pain Neuro Neurology: Positive for weakness, numbness, tingling, unsteady gait/balance and restless legs; no frequent falls, abnormal hearing, dizziness, loss of vision, memory loss or visual disturbances Psych Psychiatric: No memory loss, No anxiety, No change in appetite, Positive for depression, No Thoughts of harming yourself/Others Endo Endocrine: Positive for fatigue; no heat intolerance, increased thirst/drinking, increased hunger or increased urination Aller/Imm Allergy/Immunologic: No wheezing, itchy eyes or seasonal allergy symptoms Ozzy/Lymp Hematologic/Lymphatic: No easy bleeding, easy bruising or enlarged lymph nodes Exam Const General: cooperative, healthy appearing Nutritional Appearance: average body habitus Orientation: oriented x3 Eyes General: appearance normal, both eyes and all related structures Neck Neck: normal visual inspection Neck mass: No Thyroid: thyroid normal Chest Chest palpation AND inspection: other (Port for pain pump in place) Resp Effort AND Inspection: normal respiratory effort Auscultation: Bilateral: Rales, Expiratory Wheezes Cardio Rate: regular rate Rhythm: regular rhythm GI Inspection: normal to inspection Musc Musculoskeletal: No muscle weakness Cervical Spine: pain with cervical ROM and cervical spinal tenderness Skin General: no rashes or lesions noted Lesions: no lesions Neuro General: oriented x3 Psych Appearance: grossly normal Mental Status: mental status grossly normal Affect: normal affect Assessment AND Plan 1. Essential hypertension I10 Plan This patient's blood pressure is well controlled I am not going to change any of his antihypertensive medications Orders Orders: 2. 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 3. Spondylosis M47.9 Plan Patient is under the care of a spinal surgeon in [place] he says he has come a long way but he also has pain medicines given by an IV pain pump. 4. Hx of bladder cancer Z85.51 Plan Patient is under the care of urologist for bladder cancer he had a bladder washing about a month ago it did not show any cancer cells at that time. 5. Dyslipidemia E78.5 Plan Patient takes medicine for his dyslipidemia will evaluate that at the next blood draw. 6. Cigarette nicotine dependence without complication F17.210 Plan I encouraged the patient stop smoking but he refuses says it is the only pleasure he has left on life. 7. Status post cervical spinal fusion Z98.1 8. Hx of fusion of cervical spine Z98.1 9. Type 2 diabetes mellitus with complication, with long-term current use of insulin E11.8 Plan Patient is having hypoglycemic spells he states that his last hemoglobin A1c was 5.5 I think there is no need to take the Levemir with a hemoglobin A1c of 5 5 he only takes 10 units and is reporting some degree of hypoglycemia so the Levemir is stopped pending the receipt of the blood work that has been ordered. Orders Orders: 10. History of pulmonary embolism Z86.711 Plan Detail Other Medications New: Additional Comments Patient was given a prescription for Sonata because he is having extreme difficulties sleeping he says the current medicine he takes the trazodone has not been of no help at all Ambien used to help but he gets nauseated on that. Follow Up 3 Months Coding Level of Care Code Off vis,new,level 4 Diagnoses Essential hypertension I10 Hereditary hemochromatosis E83.110 Hemochromatosis type: hereditary Spondylosis M47.9 Spinal region: cervical Hx of bladder cancer Z85.51 Dyslipidemia E78.5 Cigarette nicotine dependence without complication F17.210 Nicotine product type: cigarettes Substance use status: uncomplicated Status post cervical spinal fusion Z98.1 Hx of fusion of cervical spine Z98.1 Type 2 diabetes mellitus with complication, with long-term current use of insulin E11.8 Diabetes mellitus complication status: with unspecified complications Diabetes mellitus technician terminal and repeater insulin use: with technician terminal and repeater use Diabetes mellitus type: type 2 History of pulmonary embolism Z86.711 03/02/18 8915 <Electronically signed by Aleksandr Duarte DO> Date Aleksandr Duarte DO Cosigner Signature: Date (if applicable) CC: CYTOLOGY, BODY FLUID / Collected: 02/15/2018 Status: F Source: [facility] CSF 3:45 PM [facility] REPOSITORY Order Comment: Specimen Source: URINE TYPE CODE TESTS RESULT OUT OF RANGE REFERENCE UNITS LAB L350.1000 SEE Normal PATHOLOGY CYTOLOGY,BF REPORT /CSF Result Comment: Specimen submitted to Anatomical Pathology Department for testing. Performed By: #### L350.1000 #### [facility] [address] [place], [address] MISCELLANEOUS LAB Collected: 02/15/2018 Status: F Source: [facility] PROCEDURE 3:45 PM [facility] REPOSITORY Order Comment: Test(s) Ordered: FISH [id number] TYPE CODE TESTS RESULT OUT OF RANGE REFERENCE UNITS LAB L801.1541 Normal MISC LAB TEST Result Comment: Scanned image report available in EMR Performed By: #### L801.1541 #### [facility] [address] [place], [address] CYTOSPIN ON FLUID Observed: 02/15/2018 Status: F Source: [facility] 12:00 AM [facility] REPOSITORY Patient: YONATHAN COOL Jr. : 1960 (57/M) Acct Num: [id number] Phys: Linda BENTLEY,Jose Fortune Unit Num: [id number] Loc: LABSPEC Specimen: [id number] Received: 02/15/18 - 8265 Spec Type: CYSPIN FL TISSUES TISSUES: Urine CYTOLOGY GROSS Received is 25 ml of cloudy yellow fluid labeled with the patient's name and and designated per the requisition as urine. Submitted for cytology preparation. / 02/16/18 TC:5 CPT: 41427 CYTOLOGY STUDY Slides are reviewed. The specimen predominantly consists of benign squamous cells and amorphous acellular material. DIAGNOSIS CYTOLOGY Urine for cytology (cytospin): Negative for malignant cells. SJ:carlotta 02/17/18 HEADER OPERATION: Not noted PRE-OP DIAGNOSIS: C67.9 TISSUE SUBMITTED: Urine for cytology Signed Jason Murrell 02/17/18 <signature on file> Performed By: #### PCYSPIN #### [facility] [address] [place], [address] SPINE CERVICAL Observed: 01/31/2018 Status: F Source: [place] [place] WITHOUT CONTRAS 2:48 PM [facility] REPOSITORY [facility] Imaging Services [address] [place] [address] Spine Cervical without Contras MR#: [id number] Acct: [id number] Name: YONATHAN COOL Jr. Rep #: [id number] : 1960 M 57 From: Camron Melendez MD PCP: Xavier Gould MD Status: REG CLI Study: Spine Cervical without Contras Date of Exam: 01/31/18 Exam# [id number] Ordering Dr: IRAIDA HARRINGTON STUDY: CT CERVICAL SPINE WITHOUT CONTRAST REASON FOR EXAM: Male, 57 years old. Cervical fusion RADIATION DOSAGE (If Supplied By Facility): CTDIvol = ( 28.51 ) mGy, DLP = ( 628.23 ) mGycm TECHNIQUE: High resolution transaxial imaging was performed without contrast material. Sagittal and coronal images were reconstructed. Individualized dose optimization techniques were used for this CT. COMPARISON: X-ray April 27, 2017 FINDINGS: Normal craniovertebral junction. There are degenerative changes of the anterior atlantoaxial articulation. Normal odontoid process. There is straightening of the normal cervical lordosis. There are postoperative changes. There is anterior cervical fusion with hardware at C3-4. There is fixation plate and screws extending from C5 to C6. There is posterior fusion with bilateral pedicle screws from C3 to C7. There is laminectomy of C4 and C5. No acute fracture . C2-3: Normal endplates. Normal disc height and morphology. Normal central canal and intervertebral neuroforamina. Facet spurring. C3-4: Fusion. Disc bulge and spurring. Normal central canal and intervertebral neuroforamina. C4-5: Fusion. Mild spurring. Normal central canal and intervertebral neuroforamina. C5-6: Fusion. Normal central canal and intervertebral neuroforamina. C6-7: Disc space narrowing. Disc bulge and spurring are Posterior fusion.. Normal central canal and intervertebral neuroforamina. C7-T1: Normal endplates. Normal disc height and morphology. Normal central canal and intervertebral neuroforamina. Postoperative changes of the neck. There is port on the right side. CT/Spine Cervical without Contras IMPRESSION: Postoperative changes with fusion. Electronically Signed: Camron Melendez MD at 15:43 EDT , Service support , CC: IRAIDA HARRINGTON; Xavier Gould MD Filler Picker: Signed ONCOLOGY VISIT REPORT Observed: 01/11/2018 Status: F Source: [place] [place] 11:59 AM [facility] REPOSITORY [facility] [address] [place] [address]. [place] [address] OFFICE VISIT Date of Service: 01/11/18 1131 MR#: [id number] Acct: [id number] Name: YONATHAN COOL Rep #: [id number] : 1960 From: Brenden Sauceda MD Age/Sex: 57/M Location: ONC Status: Signed - Problem List (1) Hemochromatosis Status: Chronic Qualifiers: Comment: Compound Heterozygous C282Y, H63D Mild Fe overload - Date of Service Date of Service:: 01/11/18 - Chief Complaint Hemochromatosis follow-up - History of Present Illness Patient is a 57-year-old male who presented in 2012 with abnormal liver functions and cirrhosis and further workup was consistent with hereditary hemochromatosis, double heterozygotes for C282Y and H63D mutation and CHERY. Liver biopsy in 2012 confirmed steatohepatitis and mild iron overload. He was started on a phlebotomy protocol under the care of Dr. Virgen at [facility] with control of his iron overload. He is transferring his care to [facility] as of December 2017. His medical history is also notable for a hypercoagulable state with a history of pulmonary embolism and port related thrombosis, diabetes, hypertension, DJD, spondylosis, obesity and H/O superficial bladder cancer (2009) - Past Medical/Social History Past Medical History Cancer: Bladder cancer Social History Social History: No changes Smoking Status Current every day smoker Review of Systems Comment: Unchanged from December 30, 2017 Vital Signs Height 6 ft Weight: 113.67 kg Weight in Pounds 250.6 lbs Pulse Ox 95 - Physical Exam General: Alert, Oriented x3, No apparent distress, - - For full exam please see December 30, 2017 Laboratory Data: Reviewed in EMR Laboratory Tests Hct 39.2 L Iron Saturation 9.9 L Ferritin 26 Tumor Marker AFP 1.9 Diagnostic Data: CT chest screening for lung cancer high risk December 2017 no suspicious abnormalities, follow-up recommended in 1 year Assessment and Plan Hereditary hemochromatosis double heterozygous C282Y and H63D mutation which causes a mild iron overload. Patient has liver cirrhosis primarily due to CHERY on top of his hereditary iron overload. He has been on a phlebotomy protocol since 2012 was a fairly good control of his iron overload. Plan: 1- Continue with the phlebotomy to a target ferritin and transferrin saturation less than 50 while maintaining hematocrit at 36% or above. Patient is on target this visit and no phlebotomy this month. Follow-up in 2 months 2-screening for hepatocellular cancer is indicated being at a higher risk due to cirrhosis with ultrasound and AFP every 6 months, next is 06/2018. 3-high risk for smoking induced lung cancer (<1-2 1/2 ppd X40+ years) is a candidate for screening for lung cancer with annual noncontrast CT, screening 2017 negative, next due December 2018. 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 Long-term systemic anticoagulation is indicated. Choice of agent is to the discretion of patient's primary care, insurance coverage and affordability. Impression and recommendation discussed with patient. He will be seen after completing the above studies Primary Care Provider: Xavier Gould Referring Provider: Xavier Gould 01/11/18 1150 <Electronically signed by Brenden Sauceda MD> Date Brenden Sauceda MD [facility] Signature: Date (if applicable) CC: Xavier Gould MD LIVER Observed: 01/06/2018 Status: F Source: [facility] 7:36 AM [facility] REPOSITORY [facility] Imaging Services [address] [place] [address] Liver MR#: [id number] Acct: [id number] Name: YONATHAN COOL Rep #: [id number] : 1960 M 57 From: Reno Arreola MD PCP: Xavier Gould MD Status: REG CLI Study: Liver Date of Exam: 01/06/18 Exam# [id number] Ordering Dr: Brenden Sauceda MD STUDY: ABDOMINAL ULTRASOUND - RIGHT UPPER QUADRANT REASON FOR VISIT: Male, 57 years old. The patient has a history of hemochromatosis. Screening for hepatocellular carcinoma. TECHNIQUE: Ultrasound evaluation of the right upper quadrant was performed with real-time and static kruger-scale imaging. TECHNICAL QUALITY: Adequate. COMPARISON: Comparison is made with prior ultrasound dated December 14, [address] scan and abdomen dated November 19, 2016. FINDINGS: Liver: The liver measures 16.4 cm. There is increased echogenicity consistent with fatty infiltration. The bile ducts are within normal limits. There is hepatic color flow. The direction of portal flow is hepatopetal. There is no demonstrated mass lesion. Gallbladder: The patient is status post cholecystectomy. Common Bile Duct (C.B.D.): The common bile duct measures 2.0 mm. Pancreas: Normal size of the head, body and tail of the pancreas. There is normal echogenicity of the pancreas. There is no demonstrated pancreatic mass or cyst. Right Kidney: Normal size of the right kidney. The right kidney measures 12.5 cm x 5.3 cm x 6.9 cm. Normal renal cortex. The right cortex measures 1.5 cm. There is no demonstrated renal mass or cyst. There is no right hydronephrosis. US/Liver IMPRESSION: Fatty infiltration of the liver. Electronically Signed: Reno Arreola MD at 10:24 EDT Tel [phone], Service support , CC: Xavier Golud MD; Brenden Sauceda MD Filler Picker: Signed LOW DOSE CT LUNG Observed: 01/06/2018 Status: F Source: [place] SCREENING 7:10 AM [facility] REPOSITORY [facility] Imaging Services [address] [place] [address] Lung Screening MR#: [id number] Acct: [id number] Name: YONATHAN COOL Rep #: [id number] : 1960 M 57 From: Reno Arreola MD PCP: Xavier Gould MD Status: REG CLI Study: Low Dose CT Lung Screening Date of Exam: 01/06/18 Exam# [id number] Ordering Dr: Brenden Sauceda MD STUDY: LOW DOSE CT LUNG CANCER SCREENING REASON FOR EXAM: Male, 57 years old. 20 pack-year history of smoking. History of bladder cancer. Shortness of breath. RADIATION DOSAGE (If Supplied By Facility): CTDIvol = ( 4.02 ) mGy, DLP = ( 140.94 ) mGycm TECHNIQUE: No contrast was administered. Low dose technique was utilized (average mAS-38 and kVp 120). 1.25 mm axial source images with a slice interval of 1.25- mm were reconstructed in lung windows. 2.5 mm axial source images with a slice interval of 2.5-mm were reconstructed in lung windows. 5.0 mm axial source images with a slice interval of 5.0-mm were reconstructed in soft tissue windows. Nodule measured using lung windows on PACS and/or independent workstation with automated measurement of minimum and maximum diameter. Nodule measurement reported as average diameter rounded to the nearest whole number. Growth is defined as an increase ins size of greater than 1.5 mm. COMPARISON: Comparison is made with prior CT scan of the thorax dated February 20, 2013. A right-sided portacatheter is seen. The tip is in the superior vena cava. NODULES: No suspicious nodular densities are seen. Stable linear and nodular densities seen in the anterior aspect of the left lower lobe. This most likely represents scarring. This is unchanged. Stable 7 mm noncalcified nodule in the right middle lobe anteriorly as seen on axial image #150. CT/Low Dose CT Lung Screening IMPRESSION: Lung-RADS category 2 - Continue annual screening with LDCT in 12 months. IMPORTANT NOTES FOR USE: ACR Lung-RADS Version 1.0 Assessment Categories Release Date: January 15, 2014 Category: Coded 0-4 bases on nodule(s) with highest degree of suspicion. Negative screen is defined as categories 1 and 2; a positive screen is defined as categories 3 and 4. Category 3 and 4A nodules that are unchanged on interval CT should be coded as category 2, and individuals returned to screening in 12 months. Category 4X: Category 3 or 4 nodules with additional imaging findings that increase the suspicion of lung cancer, such as spiculation, GGN that doubles in size in 1 year, enlarged lymph notes, etc. Category Modifiers: S (significant finding unrelated to lung cancer) and C (prior history of treated lung cancer) may be added to the 0-4 Lung-RADS Electronically Signed: Reno Arreola MD at 10:30 EDT Tel [phone], Service support , CC: Xavier Gould MD; Brenden Sauceda MD Filler Picker: Signed XR SPINE CERVICAL 2 Observed: 01/04/2018 Status: F Source: [facility] V[facility] 9:07 AM [facility] REPOSITORY EXAM: XR SPINE CERVICAL 2 VIEWS, 01/04/2018 09:00 AM COMPARISON: November 06, 2017 CLINICAL INDICATIONS: postop RELEVANT CLINICAL HISTORY: Z98.1:Arthrodesis status FINDINGS: 3 images obtained There is redemonstration of an anterior fusion at C3-4 and from C4 to C6 with graft material in place. Hardware is intact at both fusion sites. There is redemonstration of a posterior fusion extending from C3 to C7. Hardware is intact. Posterior surgical drain and skin clips at been removed. No compression deformities. No spondylolisthesis. IMPRESSION: Stable anterior fusion at C3-4 and C4-C6 Stable posterior fusion from C3 to C7 Observed: 12/31/2017 Status: COMPLETED Source: [place] 12:00 AM [facility] REPOSITORY Telephone ([place]) YONATHAN COOL ([id number]) 1960 M Date Time Provider Department 12/31/17 BRYN GOULD [place] During your visit today, we recorded the following information about you: Na Gaxiola Ma 12/31/2017 4:36 PM Signed Labs from [facility] received and placed in PCP inbox for review. Please route to [facility] when completed for processing Allergies As of Date: 12/31/2017 Noted Allergy Reaction KEFLEX (CEPHALEXIN) 03/11/2016 11 - Vomiting ATIVAN (LORAZEPAM) 12/13/2017 1 - Mental Status Change LYRICA (PREGABALIN) 05/31/2009 Comments: Pt. passed out and BP drop MORPHINE 09/16/2011 2 - Rash PROZAC (FLUOXETINE HCL) 12/12/2012 8 - GI Upset Date Reviewed: 12/13/2017 Reviewed by: Annetta (Rn) LINH Gupta - Fully Assessed Reason for Visit: [facility] labs [Other] Prescriptions as of 12/31/2017 Sig: FONDAPARINUX 10 MG/0.8 ML SUB* Inject 0.8 mL subcutaneously * INSULIN DETEMIR (U-100) 100 U* Inject 10 Units subcutaneousl* OXYCODONE-ACETAMINOPHEN 10 MG* Take 1 tablet by mouth every * FOLIC ACID 1 MG TABLET Take 1 tablet by mouth once d* ONETOUCH ULTRA TEST STRIPS TEST FIVE TIMES DAILY (E11.65* VICTOZA 3-EVERETT 0.6 MG/0.1 ML (* INJECT 1.8 MG SUBCUTANEOUSLY * TRAZODONE 100 MG TABLET Take 1 tablet by mouth daily * BLOOD-GLUCOSE METER KIT 1 Each as needed. SODIUM CHLORIDE 0.9% FLUSH Access implanted vascular acc* HEPARIN LOCK FLUSH (PORCINE) * Access implanted vascular acc* LANCING DEVICE WITH LANCETS K* 1 Each five times daily. (E11* VITAMIN D2 50,000 UNIT CAPSULE TAKE 1 CAPSULE BY MOUTH ONCE * PRIALT INTRATHEC. by INTRATHECAL route. LISINOPRIL 10 MG TABLET Take 1 tablet by mouth once d* AMLODIPINE 5 MG TABLET Take 1 tablet by mouth once d* BLOOD-GLUCOSE METER KIT 1 Each as needed. One Touch M* LANCETS Test blood sugar(s) 5 times d* HEPARIN LOCK FLUSH (PORCINE) * NURSING USE ONLY: USE FOR I* BLOOD SUGAR DIAGNOSTIC, DRUM-* Test blood sugar(s) 1 times d* BLOOD PRESSURE KIT-EXTRA LARG* Use as directed SODIUM CHLORIDE 0.9% FLUSH NURSING USE ONLY: USED FOR * Problem List As Of Date 12/31/2017 Noted Resolved Abdominal or Pelvic Swelling, Mass, or Lump, Ri*INVALID FOR*02/26/2010 Sebaceous Cyst [L72.3] INVALID FOR*02/26/2010 Unspecified Disorders of Bursae and Tendons in *INVALID FOR*02/26/2010 SURGERY FOLLOWUP, UNSPEC [Z09] INVALID FOR*02/26/2010 BENIGN HYPERTENSION [I10] INVALID FOR* DIARRHEA NOS [R19.7] BENIGN NEOPLASM LG BOWEL [D12.6] INVALID FOR* Malignant neoplasm of bladder (HCC) [C67.9] INVALID FOR* CALCULUS OF KIDNEY [N20.0] INVALID FOR* HYPERTONICITY OF BLADDER [N31.8] INVALID FOR* Herniated Cervical Disc [M50.20] INVALID FOR* Tobacco Abuse [Z72.0] INVALID FOR* Chest Pain [R07.9] INVALID FOR*02/26/2010 Closed Fracture of Cervical Spine [S12.9XXA] INVALID FOR* More... HNP (Herniated Nucleus Pulposus) with Myelopath*INVALID FOR* Dysmetabolic syndrome X [E88.81] INVALID FOR* Hemochromatosis [E83.119] INVALID FOR*10/05/2017 Acute venous embolism and thrombosis of unspeci*INVALID FOR*08/01/2014 Other pulmonary embolism and infarction [I26.99]INVALID FOR* Low serum testosterone level [R79.89] INVALID FOR* Vascular port complication [T82.9XXA] INVALID FOR* Cirrhosis (HCC) [K74.60] INVALID FOR* Hereditary hemochromatosis (HCC) [E83.110] INVALID FOR* Hepatic cirrhosis (HCC) [K74.60] INVALID FOR* Type 2 diabetes mellitus without complication, *INVALID FOR* Adjustment disorder with mixed anxiety and depr*INVALID FOR* Coagulopathy (HCC) [D68.9] INVALID FOR* Thromboembolism (HCC) [I74.9] INVALID FOR* Encounter Status:Closed by NA GAXIOLA MA on 12/31/17 INITAL EVALUATION (1) Observed: 12/30/2017 Status: F Source: [place] - PT 6:44 PM [facility] REPOSITORY [facility] [place], [place] [address] Fax REHABILITATION SERVICES INITIAL EVALUATION MR#: [id number] Acct: [id number] Name: YONATHAN COOL Rep #: [id number] : 1960 57 From: Yobany Thornton PT, Cert. MDT, OCS Referring Dr.: Shaggy Mcgregor MD Status: REG RCR Insurance: [employer] SELF PAY INSURANCE Patient's Visit Information YONATHAN COOL is a 57 year old M referred to Physical Therapy by MD KALIN Carreno with a diagnosis of s/p CERVICAL FUSION ,RIGHT SIDE WEAKNESS. Date of Evaluation: 12/28/17 Physical Therapist: Yobany Thornton PT, - Visit Plan Frequency: 2x /Week Duration: 6 Weeks Plan: NO TWISTING/BENDING LIFTING GREATER 5#. PT for postural ex's right UE /LE STRENGTHENING,GAIT - Subjective Subjective: This 57 y/o male presents to physical therapy with s/p cervical spinal fusion Nov [address] [facility] done by DR Crawford. Patient had posterior fusion C3-7 rods/screws. Patient d/c to home with soft collar,5 # wt restriction.Patient DOI 2008 fell out of truck found to hace cervical fx and and HNP . Patient had 1st cervical laminectomy November 2008 ,6months later had cervical fusion C4-5.Patient continue to have parathesia/tingling seen DR Crawford 2016. Patient has h/o epidural,ablashion ,pain pump. Dr Crawford did MRI showed stenoisis,HNP. thus underwent S/P ACDF C3-4 at [facility]. Parient after surgery weakness right side UE/LE. Patient had PT after surgery. Patient has had complication for port right side for blood drawn for hemochrometosis -herdity..Also ,h/o spinal stroke ,DVT. Patient most recently had DVT shoulder Apr last year.Patient pain is better . Parathesia affects right hand,. Patient has weakness in right UE leg is doing better with strength. Patient has difficuly with ADL'S and houswork tasks and currently needs cane for gait.Patient occassionally c/o BENAVIDES. Denies tinnitus/nausea/swallowing difficulty. Patient impairments affect quality of life. SOCAIL: . VOCATION: disablity - Pain Bilateral Neck Pain Intensity (Out of 10): 2 Pain Intensity Range: 10 Right Shoulder Pain Intensity (Out of 10): 2 Pain Intensity Range: 10 Comment: arm - Objective POSTURE: mild foward posture,rounded shoulders reduce lordosis,. INSCION: well approximate posterior. NEURO: c/o parathesia/tingling right hand ,light touch intact,reflexes C5-6-7 1/. GAIT: ambulates with straight cane with 2 pont gait with mild foward posture. PALPATION: tender parapinals. AROM: shoulder flexion /abd 140 degrees. CERVICAL ROM: flexion mod loss,rotaion/lateral flexion mod/severe loss. MMT: quads/hams 4/5 ,ankle 4/5 ,hip flexion 3+/5. shoulder lateral/anterior 3+/5,bicep/tricep 4-/5,wrist flexion/extension 4-/5. 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 60# to improve function Goal Time Frame: 4-6 Weeks Goal 6:: Patient be able to perform ADL'S and housework chores with min limiations - Rehabilitation Potential Physical Therapy Diagnosis: This patient had posterior cervical fusion with weakness right UE but improving,right leg good srength but weakness hip ,patient has pain and numbnes thus deficits impairs ADL'S and housework tasks Rehabilitation Potential: Good - Anticipated Interventions Patient/Client Instruction: Educate patient on: Condition, Plan of Care For the Purpose of:: To decrease pain, To improve muscle performance and motor function, To improve ability to perform ADL's, To increase tolerance to activity/condition/position, To improve performance and independence with ADL's, To improve ability of physical actions for home/community/work/leisure, To increase flexibility/ROM, To improve endurance, To improve balance, To improve safety with gait, To improve ability to perform tasks related to life management Therapeutic Exercise to Include: Strength training, Endurance training, Balance training, Postural training, Active ROM Comment: RIGHT UE/LE For the Purpose of:: To decrease pain, To improve muscle performance and motor function, To increase tolerance to activity/condition/position, To improve performance and independence with ADL's, To improve ability of physical actions for home/community/work/leisure, To improve gait and locomotor functions, To improve endurance, To improve ability to perform tasks related to life management Thank you for the opportunity to evaluate your patient. For Medicare and Medicare HMO plans, please review the plan of care and approve it. It will need to be FAXED BACK to us at [phone] for Medicare purposes. Please let me know if there are questions or concerns regarding this plan of care. Physician Signature: Date: <Electronically signed by Yobany Thornton PT, Cert. MDT, OCS> 12/30/17 1844 CC: Xavier Gould MD; Shaggy Mcgregor MD MAGDY Signed For Medicare only, by signing this I certify the plan of care. Physicians Signature Date CBC W/DIFF, AUTOMATED Collected: 12/30/2017 Status: F Source: [place] 11:10 AM [facility] REPOSITORY Order Comment: Reason for Laboratory Test . TYPE CODE TESTS RESULT OUT OF RANGE REFERENCE UNITS LAB L100.1000 4.4-11.0 K/mm3 Normal WBC 4.4 LAB L100.1200 4.6-6.2 M/mm3 Low RBC 4.47 LAB L100.1300 13.0-16.5 g/dl Normal HGB 13.1 LAB L100.1400 40-54 % Low HCT 39.2 LAB L100.1500 80-94 fL Normal MCV 87.7 LAB L100.1600 27.0-32.0 pg Normal MCH 29.3 LAB L100.1700 32-36 g/gl Normal MCHC 33.4 LAB L100.1810 11.6-14.6 % Normal RDW CV 14.6 LAB L100.1820 35.1-43.9 fl High RDW SD 46.1 LAB L100.1900 150-450 K/mm3 Normal PLT 244 LAB L100.2000 6.2-12.0 fl Normal MPV 9.8 LAB L100.2100 47-70 % Normal NEUT% 52.7 LAB L100.2200 19-41 % Normal LY% 34.9 LAB L100.2300 0-10 % Normal MONO% 9.6 LAB L100.2400 0-5 % Normal EO% 2.1 LAB L100.2500 0-1 % Normal BASO% 0.7 LAB L100.2550 0.0-0.9 % Normal IM GRAN % 0.000 Result Comment: IG% - Immature Granulocytes (promyelocytes, myelocytes and metamyelocytes) > 1% indicates that a LEFT SHIFT is Present. LAB L100.2620 2.0-7.7 X10 3/uL Normal Absolute Neut 2.3 LAB L100.2720 0.83-4.51 X10 3/ul Normal Absolute Lymph 1.53 Performed By: #### L100.0100 #### [facility] [address] [place], [place], [address] #### L3300.0700 #### [facility] (refer to report for specific site) refer to report for address and phone number AFP, TUMOR MARKER Collected: 12/30/2017 Status: F Source: [place] 11:10 AM [facility] REPOSITORY Order Comment: Reason for Laboratory Test . Is Patient ? N TYPE CODE TESTS RESULT OUT OF RANGE REFERENCE UNITS LAB L3300.0700 0.0-8.3 ng/mL Normal AFP TUMOR 1.9 2253 Result Comment: [employer] ECLIA methodology Performed at: [facility] [address] [id number] Fab[employer] Worker Supervisor: Jose Auguste PhD, Phone: [phone] Performed By: #### L100.0100 #### [facility] [address] [place], [address] #### L3300.0700 #### [facility] (refer to report for specific site) refer to report for address and phone number COMPREHENSIVE METABOLIC Collected: 12/30/2017 Status: F Source: [facility] 11:10 AM [facility] REPOSITORY Order Comment: Reason for Laboratory Test . TYPE CODE TESTS RESULT OUT OF RANGE REFERENCE UNITS LAB L501.0100 74-106 mg/dL Normal GLU 104 Result Comment: Fasting Glucose result from 100 to 125 mg/dL suggests IMPAIRED HOMEOSTASIS per A.D.A. criteria. Please note revised GLUCOSE reference range effective 2017. LAB L501.1000 7-18 mg/dL Normal BUN 14 LAB L501.1100 0.70-1.30 mg/dL Normal CREAT,SERUM 0.92 Result Comment: The validity of the calculated GFR AND GFRAA in patients over 70 years has not been determined. Clinical correlation is essential. LAB L501.1110 >60 mL/min Normal EST GFR 91 Result Comment: Non- GFR Calc LAB L501.1115 >60 mL/min Normal EST GFR - AA 110 Result Comment: GFR Calc LAB L501.1255 ml/min Normal Estimated CRCL 99.58 LAB L501.1300 10-20 RATIO Normal BUN/CRE 15.3 LAB L501.1500 6.4-8. g/dL Normal 2 T PROT 7.2 LAB L501.1800 3.2-5. g/dL Normal 0 ALB 3.7 LAB L501.1950 2.2-4. g/dL Normal 2 GLOB 3.5 LAB L501.2000 0.9-2. RATIO Normal 4 A/G 1.1 LAB L501.2200 8.5-10 mg/dL Low .1 CA 8.2 LAB L501.4100 15-37 U/L Normal AST 22 LAB L501.4305 45-117 U/L Normal ALK P 115 LAB L501.4405 16-61 U/L Normal ALT 38 Result Comment: Please note revised ALT reference range effective 2017. LAB L501.4600 0.20-1.00 mg/dL Normal T BILI 0.40 LAB L501.5300 136-145 mmol/L Normal NA 142 LAB L501.5600 3.5-5.1 mmol/L Normal K 4.0 LAB L501.5900 98-107 mmol/L High CL 108 LAB L501.6100 21.0-32.0 mmol/L Normal CO2 27.0 LAB L501.6200 5-15 Normal GAP 7 Performed By: #### L500.4050, L503.6030, L503.6550 #### [facility] [address] [place], [address] IRON+IRON BINDING Collected: 12/30/2017 Status: F Source: [facility] 11:10 AM [facility] REPOSITORY Order Comment: Reason for Laboratory Test . TYPE CODE TESTS RESULT OUT OF RANGE REFERENCE UNITS LAB L503.6075 250-450 ug/dL TIBC Normal 382 LAB L503.6150 65-175 ug/dL Low IRON 38 LAB L503.6250 15.0-55.0 % Low IRON SATURATION 9.9 Performed By: #### L500.4050, L503.6030, L503.6550 #### [facility] [address] [place], [address] FERRITIN Collected: 12/30/2017 Status: F Source: [place] 11:10 AM [facility] REPOSITORY Order Comment: Reason for Laboratory Test . TYPE CODE TESTS RESULT OUT OF RANGE REFERENCE UNITS LAB L503.6550 26-388 ng/mL Normal FERRITIN 26 Performed By: #### L500.4050, L503.6030, L503.6550 #### [facility] [address] [facility] [place], [address] ONCOLOGY HISTORY AND Observed: 12/30/2017 Status: F Source: [place] PHYSICAL 10:58 AM [facility] REPOSITORY [facility] Medical Records Department [address] [facility] [place] [address] History and Physical 12/30/17 1005 MR#: [id number] Acct: [id number] Name: YONATHAN COOL Rep #: [id number] : 1960 57 From: Brenden Sauceda MD PCP: Xavier Gould MD Status: REG RCR Y Location: [facility] - Problem List (1) Hemochromatosis Status: Chronic Qualifiers: Comment: Compound Heterozygous C282Y, H63D Mild Fe overload Subjective Date of Service:: 12/30/17 Chief Complaint: Iron overload History of Present Illness: Patient is a 57-year-old male who presented in 2012 with abnormal liver functions and cirrhosis and further workup was consistent with hereditary hemochromatosis, double heterozygotes for C282Y and H63D mutation and CHERY. Liver biopsy in 2012 confirmed steatohepatitis and mild iron overload. He was started on a phlebotomy protocol under the care of Dr. Virgen at [facility] with control of his iron overload. He is transferring his care to [facility] as of December 2017. His medical history is also notable for a hypercoagulable state with a history of pulmonary embolism and port related thrombosis, diabetes, hypertension, DJD, spondylosis, obesity and H/O superficial bladder cancer (2008) Power of Caregiver Services Home: No Living Will: No Health History: Past Medical History (Last Updated 12/29/17 @ 13:42 by Zayra Arias) Cirrhosis (Acute) HYPOCOAGUABLE (Acute) Hereditary hemochromatosis (Acute) History of pulmonary embolus (PE) (Acute) Hypercoagulable state (Acute) PORT PLACEMENT (Acute) Allergies/Adverse Reactions: Allergy/AdvReac Type Severity Reaction Status Date / Time morphine Allergy Rash Verified 12/30/17 10:33 cephalexin [From Keflex] AdvReac Nausea/Vom/ Verified 12/30/17 10:33 Home Medications Medication Instructions Recorded Amlodipine [Norvasc] 10 mg PO DAILY 11/18/16 Risk Factors Social History Smoking Status Current every day smoker Tobacco Risk Data: Tobacco Risk Smoking Status Current every day smoker Type of tobacco: Smokeless tobacco usage: Items/Day: Year started: Years used: Counseled to quit/cut down: Reason for no counseling performed: Reason for no pharmacotherapy: Tobacco use comments: Passive smoke exposure: Substance Risk Drug use: Caffeine use [drinks/day]: Alcohol use: Type of alcohol: Drinks per day: Has patient felt the need to cut down: Has the patient been annoyed by complaints: Has the patient felt guilty about drinking: Has the patient needed an eye coffee supervisor in the mornings: Comments: Review of Systems Constitutional:: Reports: Appetite change - early satiety. Denies: Fever, Sweats, Weight loss, Chills Cardiovascular:: Reports: Dyspnea on exertion. Denies: Chest pain, Palpitations, Orthopnea, PND, Shortness of breath Respiratory: Reports: Shortness of breath upon exertion. Denies: Cough, Hemoptysis, Shortness of Breath, Wheezing Gastrointestinal:: Denies: Abdominal pain, Nausea, Vomiting, Diarrhea, Constipation, Hematochezia Genitourinary: Denies: Dysuria, Hematuria, 15, Flank pain Musculoskeletal:: Reports: Back pain - Chronic neck and back pain, had multiple surgeries, has a pain pump, Sciatica. Denies: Myalgia, Arthralgia Skin: Denies: Rash, Skin Changes, Wounds Neurological:: Reports: Paralysis - Right lower extremity residual weakness. Denies: Headache, Dizziness, Visual changes, Tinnitus, Hearing loss Psychiatric: Denies: Anxiety, Depression, Homicidal Ideations, Suicidal Ideations - Physical Exam General: Alert, Oriented x3, No apparent distress, - - Overweight ECOG 1-2 HEENT: Atraumatic, PERRLA, EOMI, Normocephalic Oropharynx:: Dry mucosa Neck:: Supple, Trachea midline, - - Scar on the back of the neck from prior surgery. Negative for: JVD, bilateral Cardiac:: Regular rate, Regular rhythm, Normal S1, Normal S2. Negative for: Murmur Lungs: Clear to auscultation, Diminished, Excusion symmetrical. Negative for: Rhonchi, Wheezes Abdomen:: Soft, Non-tender, Non-distended. Negative for: Hepatosplenomegaly Extremities:: Negative for: Cyanosis, Edema Neurological: Unsteady Gait - A limp due to chronic right lower extremity weakness but was able to ambulate slowly independently Skin:: Negative for: Lesions, Rash, Petechiae, Ecchymosis Psychiatric:: Appropriate affect, Euthymic Lymphatics:: Negative for: Cervical lymphadenopathy, Supraclavicular lymphadenopathy, Axillary lymphadenopathy Assessment and Plan Hereditary hemochromatosis double heterozygous C282Y and H63D mutation which causes a mild iron overload. Patient has liver cirrhosis primarily due to CHERY on top of his hereditary iron overload. He has been on a phlebotomy protocol since 2012 was a fairly good control of his iron overload. Plan: 1- Continue with the phlebotomy to a target ferritin and transferrin saturation less than 50 while maintaining hematocrit at 36% or above. 2-screening for hepatocellular cancer is indicated being at a higher risk due to cirrhosis with ultrasound and AFP every 6 months. 3-high risk for smoking induced lung cancer (<1-2 1/2 ppd X40+ years) is a candidate for screening for lung cancer with annual noncontrast CT. 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 Long-term systemic anticoagulation is indicated. Choice of agent is to the discretion of patient's primary care, insurance coverage and affordability. 5-update CBC, CMP and iron profile Impression and recommendation discussed with patient. He will be seen after completing the above studies Primary Care Provider: Xavier Gould Referring Provider: Xavier Gould 12/30/17 1058 <Electronically signed by Brenden Sauceda MD> Date Brenden Sauceda MD [facility] Signature: Date (if applicable) CC: Xavier Gould MD; Brenden Sauceda MD Signed [facility] HEMATOCRIT Collected: 12/13/2017 Status: F Source: [place] 2:38 PM [facility] REPOSITORY TYPE CODE TESTS RESULT OUT OF REFERENCE UNITS RANGE LAB WHCT 39.0-51.0 % [place] Hematocrit 40.5 Result Comment: Test performed at: [address] [place] [address]. [facility] HEMOGLOBIN Collected: 12/13/2017 Status: F Source: [place] 2:38 PM [facility] REPOSITORY TYPE CODE TESTS RESULT OUT OF REFERENCE UNITS RANGE LAB WHGB 13.0-17.0 g/dL [place] Hemoglobin 14.1 Result Comment: Test performed at: [address] [place] [address]. CNPN Observed: 12/13/2017 Status: COMPLETED Source: [place] 12:00 AM [facility] REPOSITORY Telephone (SARA) YONATHAN COOL ([id number]) 1960 M Date Time Provider Department 12/13/17 LAURA VIRGEN During your visit today, we recorded the following information about you: Annetta Gupta, RN, RN 12/13/2017 2:50 PM Signed Pt needs a letter for his insurance to cover his Arixtra that is to be taken daily for maintenance. The letter also needs to state what symptoms/risks if not taking medication. The pharmacy will only fill for 30 days but cheaper to fill for 90 days by hundreds of dollars. Letter needed to get prescription for the 90 days also. Thank you. Laura Virgen MD 12/13/2017 3:19 PM Signed He needed a new prescription for Arixtra for 90 days? He will need long-term anticoagulation because of history of recurrent thromboembolism; he had failed high dose Coumadin 20mg once daily previously. Patient's request for medication is as follows Signed Prescriptions Disp Refills fondaparinux (ARIXTRA) 10 mg/0.8 mL syrg 90 Syringe 3 Sig: Inject 0.8 mL subcutaneously q 24 HR. DEAN: No Authorizing Provider: LAURA VIRGEN Order entered - please phone pharmacy and notify patient. Zayra Ramsey LPN, MARIA ELENA 12/13/2017 4:35 PM Signed Spoke with pt., his insurance change from [employer] to [email or web address]. He just picked up a 90 day supply and was informed before another rx would be filled that authorization needed to be obtained as this is not a maintence drug. will be bringing in new information so authorization can be obtained. MARIA ELENA Valadez LPN, LPN 12/17/2017 3:02 PM Signed Pt. Dropped off information. Will get PA started. MARIA ELENA Valadez, RN, RN 01/17/2018 1:47 PM Signed Pt states he is going to get his care at a different facility. Katerina Melendez LPN 01/19/2018 4:40 PM Signed Spoke with [facility]. No prior auth is needed. 90 day prescription just needs to be sent thru [facility]. Prescription faxed to [facility] . Patient notified and confirmed that he will not be returning here for care. Katerina Melendez LPN Allergies As of Date: 12/13/2017 Noted Allergy Reaction KEFLEX (CEPHALEXIN) 03/11/2016 11 - Vomiting ATIVAN (LORAZEPAM) 12/13/2017 1 - Mental Status Change LYRICA (PREGABALIN) 05/31/2009 Comments: Pt. passed out and BP drop MORPHINE 09/16/2011 2 - Rash PROZAC (FLUOXETINE HCL) 12/12/2012 8 - GI Upset Date Reviewed: 12/13/2017 Reviewed by: Annetta (Rn) LINH Gupta - Fully Assessed Reason for Visit: Letter [264] Primary Visit Diagnosis:Dysmetabolic syndrome X [E88.81] Other Visit Diagnoses:Hereditary hemochromatosis (HCC) [E83.110] Coagulopathy (HCC) [D68.9] Thromboembolism (HCC) [I74.9] Order(s):fondaparinux (ARIXTRA) 10 mg/0.8 mL syrgInject 0.8 mL subcutaneously q 24 HR.Disp: 90 SyringeRfl: 3 Prescriptions as of 12/13/2017 Sig: FONDAPARINUX 10 MG/0.8 ML SUB* Inject 0.8 mL subcutaneously * INSULIN DETEMIR (U-100) 100 U* Inject 10 Units subcutaneousl* OXYCODONE-ACETAMINOPHEN 10 MG* Take 1 tablet by mouth every * FOLIC ACID 1 MG TABLET Take 1 tablet by mouth once d* ONETOUCH ULTRA TEST STRIPS TEST FIVE TIMES DAILY (E11.65* VICTOZA 3-EEVRETT 0.6 MG/0.1 ML (* INJECT 1.8 MG SUBCUTANEOUSLY * TRAZODONE 100 MG TABLET Take 1 tablet by mouth daily * BLOOD-GLUCOSE METER KIT 1 Each as needed. SODIUM CHLORIDE 0.9% FLUSH Access implanted vascular acc* HEPARIN LOCK FLUSH (PORCINE) * Access implanted vascular acc* LANCING DEVICE WITH LANCETS K* 1 Each five times daily. (E11* VITAMIN D2 50,000 UNIT CAPSULE TAKE 1 CAPSULE BY MOUTH ONCE * PRIALT INTRATHEC. by INTRATHECAL route. LISINOPRIL 10 MG TABLET Take 1 tablet by mouth once d* AMLODIPINE 5 MG TABLET Take 1 tablet by mouth once d* BLOOD-GLUCOSE METER KIT 1 Each as needed. One Touch M* LANCETS Test blood sugar(s) 5 times d* HEPARIN LOCK FLUSH (PORCINE) * NURSING USE ONLY: USE FOR I* BLOOD SUGAR DIAGNOSTIC, DRUM-* Test blood sugar(s) 1 times d* BLOOD PRESSURE KIT-EXTRA LARG* Use as directed SODIUM CHLORIDE 0.9% FLUSH NURSING USE ONLY: USED FOR * Problem List As Of Date 12/13/2017 Noted Resolved Abdominal or Pelvic Swelling, Mass, or Lump, Ri*INVALID FOR*02/26/2010 Sebaceous Cyst [L72.3] INVALID FOR*02/26/2010 Unspecified Disorders of Bursae and Tendons in *INVALID FOR*02/26/2010 SURGERY FOLLOWUP, UNSPEC [Z09] INVALID FOR*02/26/2010 BENIGN HYPERTENSION [I10] INVALID FOR* DIARRHEA NOS [R19.7] BENIGN NEOPLASM LG BOWEL [D12.6] INVALID FOR* Malignant neoplasm of bladder (HCC) [C67.9] INVALID FOR* CALCULUS OF KIDNEY [N20.0] INVALID FOR* HYPERTONICITY OF BLADDER [N31.8] INVALID FOR* Herniated Cervical Disc [M50.20] INVALID FOR* Tobacco Abuse [Z72.0] INVALID FOR* Chest Pain [R07.9] INVALID FOR*02/26/2010 Closed Fracture of Cervical Spine [S12.9XXA] INVALID FOR* More... HNP (Herniated Nucleus Pulposus) with Myelopath*INVALID FOR* Dysmetabolic syndrome X [E88.81] INVALID FOR* Hemochromatosis [E83.119] INVALID FOR*10/05/2017 Acute venous embolism and thrombosis of unspeci*INVALID FOR*08/01/2014 Other pulmonary embolism and infarction [I26.99]INVALID FOR* Low serum testosterone level [R79.89] INVALID FOR* Vascular port complication [T82.9XXA] INVALID FOR* Cirrhosis (HCC) [K74.60] INVALID FOR* Hereditary hemochromatosis (HCC) [E83.110] INVALID FOR* Hepatic cirrhosis (HCC) [K74.60] INVALID FOR* Type 2 diabetes mellitus without complication, *INVALID FOR* Adjustment disorder with mixed anxiety and depr*INVALID FOR* Coagulopathy (HCC) [D68.9] INVALID FOR* Thromboembolism (HCC) [I74.9] INVALID FOR* Prescriptions ordered this encounter Disp Refills Start End FONDAPARINUX 10 MG/0.8 ML SUBCUTANEO* 90 S* 3 12/13/2017 Class: Print RX Route: SUBCUTANEOUS Sig: Inject 0.8 mL subcutaneously q 24 HR. Medications Discontinued During This Encounter fondaparinux (ARIXTRA) 10 mg/0.8 mL * 90 S* 3 11/10/2017 12/13/2017 Route: SUBCUTANEOUS Sig: Inject 0.8 mL subcutaneously q 24 HR. Disc: Reason for discontinue is not on file. Encounter Status:Closed by ANNETTA GUPTA on 01/17/18 *POC GLUCOSE BATTERY Collected: 11/08/2017 Status: F Source: [facility] 11:50 AM [facility] REPOSITORY TYPE CODE TESTS RESULT OUT OF REFERENCE UNITS RANGE LAB GLUP 70-99 mg/dL High Glucose (poc 138 device) Result Comment: No BRAVE per RN: PATIENT TYPE LAB PCSTYP *POC Capillary SAMPLE TYPE Blood *POC GLUCOSE BATTERY Collected: 11/08/2017 Status: F Source: [facility] 8:07 AM [facility] REPOSITORY TYPE CODE TESTS RESULT OUT OF REFERENCE UNITS RANGE LAB GLUP 70-99 mg/dL High Glucose (poc 111 device) Result Comment: No BRAVE per RN: PATIENT TYPE LAB PCSTYP *POC Capillary SAMPLE TYPE Blood *POC GLUCOSE BATTERY Collected: 11/07/2017 Status: F Source: [facility] 4:33 PM [facility] REPOSITORY TYPE CODE TESTS RESULT OUT OF REFERENCE UNITS RANGE LAB GLUP 70-99 mg/dL Glucose (poc 97 device) Result Comment: No BRAVE per RN: PATIENT TYPE LAB PCSTYP *POC Capillary SAMPLE TYPE Blood *POC GLUCOSE BATTERY Collected: 11/07/2017 Status: F Source: [facility] 11:32 AM [facility] REPOSITORY TYPE CODE TESTS RESULT OUT OF REFERENCE UNITS RANGE LAB GLUP 70-99 mg/dL High Glucose (poc 102 device) Result Comment: No BRAVE per RN: PATIENT TYPE LAB PCSTYP *POC Capillary SAMPLE TYPE Blood *POC GLUCOSE BATTERY Collected: 11/07/2017 Status: F Source: [facility] 7:38 AM [facility] REPOSITORY TYPE CODE TESTS RESULT OUT OF REFERENCE UNITS RANGE LAB GLUP 70-99 mg/dL High Glucose (poc 111 device) Result Comment: No BRAVE per RN: PATIENT TYPE LAB PCSTYP *POC Capillary SAMPLE TYPE Blood CHM7,CA Collected: 11/07/2017 Status: F Source: [facility] 2:35 AM [facility] REPOSITORY TYPE CODE TESTS RESULT OUT OF REFERENCE UNITS RANGE LAB BUN 7-22 mg/dL BUN 17 LAB NA 133-143 mmol/L Low Sodium 131 LAB K 3.5-5.0 mmol/L High Potassium 5.1 Result Comment: SLIGHTLY HEMOLYZED LAB CL 98-108 mmol/L Chloride 103 LAB CO2 22-30 mmol/L Carbon Low Dioxide 17 LAB GLUC 70-99 mg/dL Glucose 93 LAB CREA 0.70-1.30 mg/dL Creatinine 0.88 LAB GAP 7-17 mmol/L Anion Gap 16 LAB BC BUN/CREA Ratio 19 LAB CA 8.6-10.5 mg/dL Calcium Low 7.4 LAB [facility] 278-305 mOsm/kg Osmolality (Calc) 279 LAB GFR >60 mL/min/1.73sq M Est GFR,non >60 LAB GFRA >60 mL/min/1.73sq M Est GFR, >60 Performed By: #### C7C, IPB, MGO #### [facility] [address] [place] [address] [place] [address] INORGANIC PHOSPHATE Collected: 11/07/2017 Status: F Source: [facility] 2:35 AM [facility] REPOSITORY TYPE CODE TESTS RESULT OUT OF REFERENCE UNITS RANGE LAB IP 2.2-4.6 mg/dL Inorg Phosphate 2.3 Result Comment: SLIGHTLY HEMOLYZED Performed By: #### C7C, IPB, MGO #### [facility] [address] [place] [address] [place] [address] MAGNESIUM Collected: 11/07/2017 Status: F Source: [facility] 2:35 AM [facility] REPOSITORY TYPE CODE TESTS RESULT OUT OF REFERENCE UNITS RANGE LAB MG 1.6-2.6 mg/dL Magnesium 2.0 Result Comment: SLIGHTLY HEMOLYZED Performed By: #### C7C, IPB, MGO #### [facility] [address] [place] [address] [place] [address] *POC GLUCOSE BATTERY Collected: 11/06/2017 Status: F Source: [facility] 8:35 PM [facility] REPOSITORY TYPE CODE TESTS RESULT OUT OF REFERENCE UNITS RANGE LAB GLUP 70-99 mg/dL High Glucose (poc 127 device) Result Comment: No BRAVE per RN: PATIENT TYPE LAB PCSTYP *POC Capillary SAMPLE TYPE Blood *POC GLUCOSE BATTERY Collected: 11/06/2017 Status: F Source: [facility] 4:06 PM [facility] REPOSITORY TYPE CODE TESTS RESULT OUT OF REFERENCE UNITS RANGE LAB GLUP 70-99 mg/dL High Glucose (poc 106 device) Result Comment: No BRAVE per RN: PATIENT TYPE LAB PCSTYP *POC Capillary SAMPLE TYPE Blood XR SPINE CERVICAL 2 Observed: 11/06/2017 Status: F Source: [facility] VIEWS 3:17 PM [facility] REPOSITORY EXAM: XR SPINE CERVICAL 2 VIEWS, 11/06/2017 14:54 PM COMPARISON: Compared to prior study dated August 04, 2017. CLINICAL INDICATIONS: s/p C3-7 PSF and decompression, must be upright FINDINGS: 2 images obtained. Cervical Vertebral: Anterior fixation hardware at C3-4 and separately C4-C6 appears stable compared to prior study. Interval revision of posterior fusion postsurgical changes. There is new fixation hardware extending from C3 through C7. Vertical rods bilaterally with screws at each level bilaterally. Hardware intact. Alignment appears anatomic. Disc: Disc spacer/graft material at the previous fusion levels appears stable. Joint: Facet joints are anatomically aligned. Soft Tissue: Postsurgical soft tissue swelling posteriorly with surgical drain in place. IMPRESSION: Interval revision of postsurgical changes posteriorly C3-C7. No acute complication evident. *POC GLUCOSE BATTERY Collected: 11/06/2017 Status: F Source: [facility] 11:00 AM [facility] REPOSITORY TYPE CODE TESTS RESULT OUT OF REFERENCE UNITS RANGE LAB GLUP 70-99 mg/dL High Glucose (poc 102 device) Result Comment: No BRAVE per RN: PATIENT TYPE LAB PCSTYP *POC Capillary SAMPLE TYPE Blood *POC GLUCOSE BATTERY Collected: 11/06/2017 Status: F Source: [facility] 7:20 AM [facility] REPOSITORY TYPE CODE TESTS RESULT OUT OF REFERENCE UNITS RANGE LAB GLUP 70-99 mg/dL Glucose (poc 91 device) Result Comment: No BRAVE per RN: PATIENT TYPE LAB PCSTYP *POC Capillary SAMPLE TYPE Blood HEMOGRAM (CBC AND Collected: 11/06/2017 Status: F Source: [facility] PLATELET) 2:06 AM [facility] REPOSITORY TYPE CODE TESTS RESULT OUT OF REFERENCE UNITS RANGE LAB WBC 4.23-9.07 K/uL WBC Count 5.24 LAB RBC 4.63-6.08 M/uL Low RBC Count 3.44 LAB HGB 13.7-17.5 g/dL Low Hemoglobin 10.7 LAB HCT 40.1-51.0 % Low Hematocrit 31.2 LAB MCV 79.0-92.2 fL Mean Cell Volume 90.7 LAB MCH 25.7-32.2 pg Mean Cell Hgb 31.1 LAB MCHC 32.3-36.5 g/dL Mean Cell Hgb Conc 34.3 LAB RDW 11.6-14.4 % RBC Distribution 13.2 LAB PLT 163-337 K/uL Low Platelet Count 134 LAB MPV 9.4-12.4 fL Mean Platelet Volume 10.1 LAB NRBC 0.0-0.2 /100 WBC NUCLEATED RBC 0.0 Performed By: #### HEMOGC, C7C, IPB, MGO #### [facility] [address] [place], [place] [address] [place] [address] [address] [place] [address] CHM7,CA Collected: 11/06/2017 Status: F Source: [facility] 2:06 AM [facility] REPOSITORY TYPE CODE TESTS RESULT OUT OF REFERENCE UNITS RANGE LAB BUN 7-22 mg/dL BUN 12 LAB NA 133-143 mmol/L Sodium 135 LAB K 3.5-5.0 mmol/L Potassium 4.0 LAB CL 98-108 mmol/L Chloride 101 LAB CO2 22-30 mmol/L Carbon Dioxide 25 LAB GLUC 70-99 mg/dL Glucose 99 LAB CREA 0.70-1.30 mg/dL Creatinine 0.85 LAB GAP 7-17 mmol/L Anion Gap 13 LAB BC BUN/CREA Ratio 14 LAB CA 8.6-10.5 mg/dL Low Calcium 8.1 LAB [facility] 278-305 mOsm/kg Osmolality 283 (Calc) LAB GFR >60 mL/min/1.73 sqM Est GFR,non >60 Slovak LAB GFRA >60 mL/min/1.73 sqM Est GFR, >60 Performed By: #### HEMOGC, C7C, IPB, MGO #### [facility] [address] [place], [place] [address] [place] [address] [address] [place] [address] INORGANIC PHOSPHATE Collected: 11/06/2017 Status: F Source: [facility] 2:06 [facility] REPOSITORY TYPE CODE TESTS RESULT OUT OF REFERENCE UNITS RANGE LAB IP 2.2-4.6 mg/dL Inorg Phosphate 3.4 Performed By: #### HEMOGC, C7C, IPB, MGO #### [facility] [address] [place] [address] [facility] [address] [place], [place] [address] MAGNESIUM Collected: 11/06/2017 Status: F Source: [facility] 2:06 AM [facility] REPOSITORY TYPE CODE TESTS RESULT OUT OF REFERENCE UNITS RANGE LAB MG 1.6-2.6 mg/dL Magnesium 1.8 Performed By: #### HEMOGC, C7C, IPB, MGO #### [facility] [address] [place] [address] [facility] [address] [place], [place] [address] *POC GLUCOSE BATTERY Collected: 11/05/2017 Status: F Source: [facility] 7:42 PM [facility] REPOSITORY TYPE CODE TESTS RESULT OUT OF REFERENCE UNITS RANGE LAB GLUP 70-99 mg/dL Glucose (poc 90 device) Result Comment: No BRAVE per RN: PATIENT TYPE LAB PCSTYP *POC Capillary SAMPLE TYPE Blood *POC GLUCOSE BATTERY Collected: 11/05/2017 Status: F Source: [facility] 3:24 PM [facility] REPOSITORY TYPE CODE TESTS RESULT OUT OF REFERENCE UNITS RANGE LAB GLUP 70-99 mg/dL High Glucose (poc 107 device) Result Comment: No BRAVE per RN: PATIENT TYPE LAB PCSTYP *POC Capillary SAMPLE TYPE Blood *POC GLUCOSE BATTERY Collected: 11/05/2017 Status: F Source: [facility] 11:49 AM [facility] REPOSITORY TYPE CODE TESTS RESULT OUT OF REFERENCE UNITS RANGE LAB GLUP 70-99 mg/dL High Glucose (poc 108 device) Result Comment: No BRAVE per RN: PATIENT TYPE LAB PCSTYP *POC Capillary SAMPLE TYPE Blood *POC GLUCOSE BATTERY Collected: 11/05/2017 Status: F Source: [facility] 11:23 AM [facility] REPOSITORY TYPE CODE TESTS RESULT OUT OF REFERENCE UNITS RANGE LAB GLUP 70-99 mg/dL Glucose (poc 88 device) Result Comment: No BRAVE per RN: PATIENT TYPE LAB PCSTYP *POC Capillary SAMPLE TYPE Blood *POC GLUCOSE BATTERY Collected: 11/05/2017 Status: F Source: [facility] 7:34 AM [facility] REPOSITORY TYPE CODE TESTS RESULT OUT OF REFERENCE UNITS RANGE LAB GLUP 70-99 mg/dL High Glucose (poc 102 device) Result Comment: No BRAVE per RN: PATIENT TYPE LAB PCSTYP *POC Capillary SAMPLE TYPE Blood HEMOGRAM (CBC AND Collected: 11/05/2017 Status: F Source: [facility] PLATELET) 2:36 AM [facility] REPOSITORY TYPE CODE TESTS RESULT OUT OF REFERENCE UNITS RANGE LAB WBC 4.23-9.07 K/uL WBC Count 7.97 LAB RBC 4.63-6.08 M/uL Low RBC Count 3.59 LAB HGB 13.7-17.5 g/dL Low Hemoglobin 11.0 LAB HCT 40.1-51.0 % Low Hematocrit 33.6 LAB MCV 79.0-92.2 fL Mean Cell High Volume 93.6 LAB MCH 25.7-32.2 pg Mean Cell Hgb 30.6 LAB MCHC 32.3-36.5 g/dL Mean Cell Hgb Conc 32.7 LAB RDW 11.6-14.4 % RBC Distribution 13.8 LAB PLT 163-337 K/uL Low Platelet Count 161 LAB MPV 9.4-12.4 fL Mean Platelet Volume 10.1 LAB NRBC 0.0-0.2 /100 WBC NUCLEATED RBC 0.0 Performed By: #### HEMOGC, C7C, IPB, MGO #### [facility] [address] [place] [address] [place] [address] CHM7,CA Collected: 11/05/2017 Status: F Source: [facility] 2:36 AM [facility] REPOSITORY TYPE CODE TESTS RESULT OUT OF REFERENCE UNITS RANGE LAB BUN 7-22 mg/dL BUN 21 LAB NA 133-143 mmol/L Sodium 135 LAB K 3.5-5.0 mmol/L Potassium 4.1 LAB CL 98-108 mmol/L Chloride 106 LAB CO2 22-30 mmol/L Low Carbon Dioxide 21 LAB GLUC 70-99 mg/dL Glucose 84 LAB CREA 0.70-1.30 mg/dL Creatinine 1.12 LAB GAP 7-17 mmol/L Anion Gap 12 LAB BC BUN/CREA Ratio 19 LAB CA 8.6-10.5 mg/dL Low Calcium 8.0 LAB [facility] 278-305 mOsm/kg Osmolality 286 (Calc) LAB GFR >60 mL/min/1.73 sqM Est GFR,non >60 Slovak LAB GFRA >60 mL/min/1.73 sqM Est GFR, >60 Performed By: #### HEMOGC, C7C, IPB, MGO #### [facility] [address] [place] [id number] [place] [address] [address] [place] [address] INORGANIC PHOSPHATE Collected: 11/05/2017 Status: F Source: [facility] 2:36 AM [facility] REPOSITORY TYPE CODE TESTS RESULT OUT OF REFERENCE UNITS RANGE LAB IP 2.2-4.6 mg/dL Inorg Phosphate 3.2 Performed By: #### HEMOGC, C7C, IPB, MGO #### [facility] [address] [place] [id number] [place] [address] [address] [place] [address] MAGNESIUM Collected: 11/05/2017 Status: F Source: [facility] 2:36 AM [facility] REPOSITORY TYPE CODE TESTS RESULT OUT OF REFERENCE UNITS RANGE LAB MG 1.6-2.6 mg/dL Magnesium 1.6 Performed By: #### HEMOGC, C7C, IPB, MGO #### [facility] [address] [place] [id number] [place] [address] [address] [place] [address] *POC GLUCOSE BATTERY Collected: 11/04/2017 Status: F Source: [facility] 7:37 PM [facility] REPOSITORY TYPE CODE TESTS RESULT OUT OF REFERENCE UNITS RANGE LAB GLUP 70-99 mg/dL Glucose (poc 98 device) Result Comment: No BRAVE per RN: PATIENT TYPE LAB PCSTYP *POC Capillary SAMPLE TYPE Blood *POC GLUCOSE BATTERY Collected: 11/04/2017 Status: F Source: [facility] 2:35 PM [facility] REPOSITORY TYPE CODE TESTS RESULT OUT OF REFERENCE UNITS RANGE LAB GLUP 70-99 mg/dL High Glucose (poc 104 device) Result Comment: Notified RNread back No BRAVE per RN: PATIENT TYPE LAB PCSTYP *POC Capillary SAMPLE TYPE Blood *POC GLUCOSE BATTERY Collected: 11/04/2017 Status: F Source: [facility] 1:43 PM [facility] REPOSITORY TYPE CODE TESTS RESULT OUT OF REFERENCE UNITS RANGE LAB GLUP 70-99 mg/dL High Glucose (poc 109 device) Result Comment: Meets BRAVE per RN: PATIENT TYPE LAB PCSTYP *POC Arterial SAMPLE TYPE *POC GLUCOSE BATTERY Collected: 11/04/2017 Status: F Source: [facility] 12:42 PM [facility] REPOSITORY TYPE CODE TESTS RESULT OUT OF REFERENCE UNITS RANGE LAB GLUP 70-99 mg/dL High Glucose (poc 108 device) Result Comment: Meets BRAVE per RN: PATIENT TYPE LAB PCSTYP *POC Arterial SAMPLE TYPE *POC GLUCOSE BATTERY Collected: 11/04/2017 Status: F Source: [facility] 11:50 AM [facility] REPOSITORY TYPE CODE TESTS RESULT OUT OF REFERENCE UNITS RANGE LAB GLUP 70-99 mg/dL High Glucose (poc 107 device) Result Comment: Meets BRAVE per RN: PATIENT TYPE LAB PCSTYP *POC Arterial SAMPLE TYPE BLD GAS 9 Collected: 11/04/2017 Status: F Source: [facility] 11:04 AM [facility] REPOSITORY TYPE CODE TESTS RESULT OUT OF REFERENCE UNITS RANGE LAB PH 7.35-7.45 PH 7.33 Low LAB PCO2 32-48 mm Hg PCO2 43 LAB PO2 83-108 mm Hg PO2 153 High LAB BGHGB 13.7-17.5 g/dL BLD GAS 13.8 HGB LAB BGH 40.1-51.0 % BLD GAS 42 HCT LAB BASE 0-3.0 mmol/L Base Not Excess applicable LAB BASED 0-3.0 mmol/L Base 3.7 High Deficit LAB BGNA 133-143 mmol/L Whole 138 Blood Sodium LAB BGK 3.5-5.0 mmol/L Whole 4.5 Blood Potassium LAB BGICA 4.60-5.30 mg/dL Whole 5.04 Bld Ionized CA LAB BGGLU 70-99 mg/dL WHOLE 121 High BLD GLUC LAB HCO3 22-26 mmol/L 22 Bicarbonate LAB OSAT 94-98 % O2 99 High Saturation LAB SPECBG Specimen type Arterial LAB FIO2 % FIO2 Not applicable Performed By: #### GAS9 #### [facility] [address] [place] [address] [place] [address] BLD GAS 9 Collected: 11/04/2017 Status: F Source: [facility] 10:05 AM [facility] REPOSITORY TYPE CODE TESTS RESULT OUT OF REFERENCE UNITS RANGE LAB PH 7.35-7.45 PH 7.33 Low LAB PCO2 32-48 mm Hg PCO2 42 LAB PO2 83-108 mm Hg PO2 134 High LAB BGHGB 13.7-17.5 g/dL BLD GAS 15.5 HGB LAB BGH 40.1-51.0 % BLD GAS 47 HCT LAB BASE 0-3.0 mmol/L Base Not Excess applicable LAB BASED 0-3.0 mmol/L Base 4.1 High Deficit LAB BGNA 133-143 mmol/L Whole 138 Blood Sodium LAB BGK 3.5-5.0 mmol/L Whole 4.4 Blood Potassium LAB BGICA 4.60-5.30 mg/dL Whole 5.09 Bld Ionized CA LAB BGGLU 70-99 mg/dL WHOLE 135 High BLD GLUC LAB HCO3 22-26 mmol/L 21 Low Bicarbonate LAB OSAT 94-98 % O2 99 High Saturation LAB SPECBG Specimen type Arterial LAB FIO2 % FIO2 Not applicable Performed By: #### GAS9 #### [facility] [place] [address] [place] [address] *POC GLUCOSE BATTERY Collected: 11/04/2017 Status: F Source: [facility] 6:55 AM [facility] REPOSITORY TYPE CODE TESTS RESULT OUT OF REFERENCE UNITS RANGE LAB GLUP 70-99 mg/dL High Glucose (poc 128 device) Result Comment: Notified RNread back No BRAVE per RN: PATIENT TYPE LAB PCSTYP *POC Capillary SAMPLE TYPE Blood OT D/C OF NON Observed: 10/22/2017 Status: F Source: [facility] PT 9:29 AM [facility] REPOSITORY [facility] [place], [place] [address] Fax REHABILITATION SERVICES DISCHARGE SUMMARY MR#: [id number] Acct: [id number] Name: YONATHAN COOL JR Rep #: [id number] : 1960 56 From: Razia Carreon Referring Dr.: Shaggy Mcgregor MD Status: REG RCR Eval Date: Discharge Date: HP - Discharge Summary - Patient Information YONATHAN COOL JR was seen in my office for initial evaluation on 02/03/17. The following Plan of Care was established for this patient: Initial Frequency: 2x /Week Initial Duration: 6 Weeks Plan: continue POC. OT talked with PT and ARTIST'S REPRESENTATIVE about neck pain. PT to address and communicate with OT for additional options. - Anticipated Interventions Anticipated Interventions: A/AAROM/PROM, Strengthening, Edema Control, Modalities, Joint Protection/Energy Conservation, Ergonomic Education, Fine Motor Coord/Royer, Neuro Reeducation, ADL Training, Caregiver Training, Home Program This patient was last seen in our office 05/18/17. Pertinent comments regarding their Occupational therapy will appear below: Yonathan attended 5 OT appointments. Pt. did not schedule further follow up. He will be d/c'd at this time and is to continue HEP. Please call with questions or concerns. At this point I will be discontinuing this patient from occupational therapy. I would be happy to see this patient again in the future if found appropriate by the physician. Thank you! Razia Carreon <Electronically signed by Razia Carreon > 10/22/17 0926 CC: Xavier Gould MD; Shaggy Mcgregor MD K[facility] Signed XR CHEST PA AND Observed: 10/19/2017 Status: F Source: [facility] LATERAL 3:51 PM [facility] REPOSITORY EXAM: XR CHEST PA AND LATERAL, 10/19/2017 14:38 PM COMPARISON: 01/09/2017 CLINICAL INDICATIONS: Preoperative evaluation RELEVANT CLINICAL HISTORY: Z01.818:Encounter for other preprocedural examination M50.20:Other cervical disc displacement, unspecified cervical region I10:Essential (primary) hypertension E11.9:Type 2 diabetes mellitus without complications (HCC) 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 Chest Wall: Partially visualized postsurgical changes in the neck. Janel: Normal Mediastinum: Normal Pleural Spaces: No pleural effusion. No pneumothorax. Lungs: Clear, without mass, interstitial disease, or consolidation. Cardiac Silhouette: Normal, without overall or specific chamber enlargement, or abnormal calcification Thoracic Aorta: Normal Pulmonary Vessels: Normal, without PVH IMPRESSION: No acute cardiopulmonary findings. I personally viewed and interpreted these images and I have reviewed and approved this report. Observed: 10/19/2017 Status: F Source: [facility] TYPE AND CROSS - 2:45 PM [facility] PRE-OP [facility] REPOSITORY ABO/RH(D): O POSITIVE ANTIBODY SCREEN: NEGATIVE UNIT NUMBER: [id number] BLOOD COMPONENT TYPE: Red Cells, [id number] STATUS OF UNIT: REL FROM ALLOC TRANSFUSION STATUS: OK TO TRANSFUSE CROSSMATCH RESULT: Electronically Compatible UNIT NUMBER: [id number] BLOOD COMPONENT TYPE: Red Cells, Leukoreduced_[id number] STATUS OF UNIT: REL FROM ALLOC TRANSFUSION STATUS: OK TO TRANSFUSE CROSSMATCH RESULT: Electronically Compatible Performed By: #### XMPO #### [facility] [address] [place] [address] [address] [place] [address] URINALYSIS W REFLEX Collected: 10/19/2017 Status: F Source: [facility] 2:15 PM [facility] REPOSITORY TYPE CODE TESTS RESULT OUT OF RANGE REFERENCE UNITS LAB LINOTYPE MACHINIST Clear Appearance Urine Clear LAB SPGR 1.001-1.035 Specific [place] urine 1.020 LAB UGL Negative mg/dL Glucose Urine Negative LAB UKET Negative Ketones Urine Negative LAB UBLD Negative Blood Urine Abnormal Small LAB UPH 5.0-7.0 pH Urine 5.5 LAB UPR Negative mg/dL Protein Urine Negative LAB UNTR Negative Nitrites Urine Negative LAB ULEU Negative Leukocyte Esterase Negative LAB COLR YEL,DKYEL Color Yellow LAB UURO <2.0 EU/dL Urobilinogen 0.2 urine LAB UWBC 0-5 /HPF WBC Urine 0-5 LAB URBC 0-2 /HPF RBC Urine 0-2 LAB BACT Absent Bacteria Abnormal Trace LAB EPIS /HPF Squamous Epithelial None LAB UCOM COMMENT URINE Mucus Performed By: #### URN1C #### [facility] [address] [place] [address] CBC WITH DIFF Collected: 10/19/2017 Status: F Source: [facility] 2:15 PM [facility] REPOSITORY TYPE CODE TESTS RESULT OUT OF REFERENCE UNITS RANGE LAB WBC 4.23-9.07 K/uL WBC Count 8.07 LAB RBC 4.63-6.08 M/uL RBC Count 5.22 LAB HGB 13.7-17.5 g/dL Hemoglobin 15.9 LAB HCT 40.1-51.0 % Hematocrit 47.1 LAB MCV 79.0-92.2 fL Mean Cell 90.2 Volume LAB MCH 25.7-32.2 pg Mean Cell 30.5 Hgb LAB MCHC 32.3-36.5 g/dL Mean Cell 33.8 Hgb Conc LAB RDW 11.6-14.4 % RBC 13.3 Distribution LAB PLT 163-337 K/uL Platelet 222 Count LAB MPV 9.4-12.4 fL Mean 10.1 Platelet Volume LAB NRBC 0.0-0.2 /100 WBC NUCLEATED 0.0 RBC LAB DTYPE Electronic DIFFERENTIAL TYPE Differential LAB IGRE % IMMATURE 0.4 GRANS % LAB SEGS % NEUTROPHIL 51.7 SEGMENTED LAB LYM % LYMPHOCYTE 36.7 % LAB MON % MONOCYTE % 8.7 LAB EOS % EOSINOPHIL 2.0 % LAB BASO % BASOPHIL % 0.5 LAB IGABS 0.00-0.03 K/uL IMMATURE 0.03 GRANS ABSOLUTE LAB SBANS 1.78-5.38 K/uL SEGS + 4.18 Bands,Absolute LAB ALYM 1.32-3.57 K/uL Abs Lymph 2.96 LAB AMONO 0.30-0.82 K/uL Abs [place] 0.70 LAB AEOS 0.04-0.54 K/uL Abs Eos 0.16 LAB ABASO 0.01-0.08 K/uL Abs Baso 0.04 Performed By: #### CBCDFM, CHM6C, HFPC #### [facility] [address] [place] [address] #### PTCC, PTTC #### [facility] [address] [place], [place] [address] [place] [address] [address] [place] [id number] PT/INR - TYRELL PEDROZA Collected: 10/19/2017 Status: F Source: [facility] LAB 2:15 PM [facility] REPOSITORY TYPE CODE TESTS RESULT OUT OF RANGE REFERENCE UNITS LAB PT 11.9-14.2 sec PT 12.6 LAB INR 0.9-1.1 INR 1.0 Performed By: #### CBCDFM, CHM6C, HFPC #### [facility] [address] [place] [address] #### PTCC, PTTC #### [facility] [address] - [facility] LAB Collected: 10/19/2017 Status: F Source: [facility] 2:15 PM [facility] REPOSITORY TYPE CODE TESTS RESULT OUT OF RANGE REFERENCE UNITS LAB PTT 24.0-34.3 sec High PTT 35.7 Performed By: #### TAMMYDFM, CEDRICM6C, HFPC #### [facility] [place] [address] #### PTCC, PTTC #### [facility] [address] [place] [address] [place] [address] Collected: 10/19/2017 Status: F Source: [facility] LAB 2:15 PM [facility] REPOSITORY TYPE CODE TESTS RESULT OUT OF REFERENCE UNITS RANGE LAB BUN 7-22 mg/dL BUN 13 LAB NA 133-143 mmol/L Sodium 138 LAB K 3.5-5.0 mmol/L Potassium 4.1 LAB CL 98-108 mmol/L Chloride 105 LAB CO2 22-30 mmol/L Carbon Dioxide 27 LAB CREA 0.70-1.30 mg/dL Creatinine 0.91 LAB GAP 7-17 mmol/L Anion Gap 10 LAB GFR >60 mL/min/1.73 sqM Est GFR,non >60 Slovak LAB GFRA >60 mL/min/1.73 sqM Est GFR, >60 Performed By: #### CBCDFM, CHM6C, HFPC #### [facility] [address] [place] [address] #### PTCC, PTTC #### [facility] [address] [address] HEPATIC FUNCTION Collected: 10/19/2017 Status: F Source: [facility] PANEL - T[place] 2:15 PM [facility] REPOSITORY TYPE CODE TESTS RESULT OUT OF REFERENCE UNITS RANGE LAB ALB 3.5-5.0 g/dL Albumin 4.7 LAB BILD <0.3 mg/dL Bilirubin Direct 0.1 LAB BILT <1.5 mg/dL Bilirubin Total 0.5 LAB ALP 32-126 U/L Alkaline Phosphatase 111 LAB ALT 10-52 U/L ALT 42 LAB AST 14-40 U/L AST 31 LAB TP 6.4-8.3 g/dL Total Protein 7.6 Performed By: #### CBCDFM, CHM6C, HFPC #### [facility] [address] [place] [address] #### PTCC, PTTC #### [facility] [address] [place] [id number] [place] [address] [address] [place] [id number] NICOTINE(COTININE),URINE Collected: Status: F Source: [facility] 10/19/2017 2:15 PM [facility] REPOSITORY TYPE CODE TESTS RESULT OUT OF REFERENCE UNITS RANGE LAB NICOTU 500 ng/mL POSITIVE Nicotine(Co tinine),Uri ne Performed By: #### NICOTU #### [facility] [address] [place] [id number] [place] [address] [address] [place] [id number] Observed: 10/19/2017 Status: F Source: [facility] SCREEN: RESP STAPH 2:15 PM [facility] (HIGH RISK SURGERY) [facility] NARES: Negative Negative This test was performed using a real time PCR assay. Results should be interpreted in conjunction with other clinical and laboratory findings. A positive result does not necessarily indicate the pr esence of viable organism. This test should not be used as a test of cure. For E-swab specimens, this test was developed and its performance characteristics determined by the Clinical Microbiology Laboratory at [facility]. It has not b een cleared or approved by the FDA.The laboratory is regulated under CLIA as qualified to perform high-complexity testing. This test is used for clinical purposes. It should not be regarded as investigational or for research. Performed By: #### SCRSB #### [address] [address] CNPN Observed: 10/15/2017 Status: COMPLETED Source: [place] 12:00 AM [facility] REPOSITORY Telephone ([employer]) YONATHAN COOL ([id number]) 1960 M Date Time Provider Department 10/15/17 [facility] During your visit today, we recorded the following information about you: Ezequiel Onur 10/15/2017 11:00 AM Signed Received 10/14/[address] Talley in [place]. Placed in pcps inbox for review. updated. Route to AL for scanning. Sisi Tipton Ma 10/22/2017 12:00 PM Signed Sent to scanning Allergies As of Date: 10/15/2017 Noted Allergy Reaction KEFLEX (CEPHALEXIN) 03/11/2016 11 - Vomiting LYRICA (PREGABALIN) 05/31/2009 Comments: Pt. passed out and BP drop MORPHINE 09/16/2011 2 - Rash PROZAC (FLUOXETINE HCL) 12/12/2012 8 - GI Upset Date Reviewed: 10/07/2017 Reviewed by: Nakia Graham (Rn) LINH Worthington - Fully Assessed Reason for Visit: Diabetic Eye Exam [1676] Cmt: Dr. Talley - [place] 10/14/17 Prescriptions as of 10/15/2017 Sig: INSULIN DETEMIR 100 UNIT/ML (* Inject 10 Units subcutaneousl* OXYCODONE-ACETAMINOPHEN 10 MG* Take 1 tablet by mouth every * FOLIC ACID 1 MG TABLET Take 1 tablet by mouth once d* ONETOUCH ULTRA TEST STRIPS TEST FIVE TIMES DAILY (E11.65* VICTOZA 3-EVERETT 0.6 MG/0.1 ML (* INJECT 1.8 MG SUBCUTANEOUSLY * FONDAPARINUX 10 MG/0.8 ML SUB* Inject 0.8 mL subcutaneously * TRAZODONE 100 MG TABLET Take 1 tablet by mouth daily * BLOOD-GLUCOSE METER KIT 1 Each as needed. SODIUM CHLORIDE 0.9% FLUSH Access implanted vascular acc* HEPARIN LOCK FLUSH (PORCINE) * Access implanted vascular acc* LANCING DEVICE WITH LANCETS K* 1 Each five times daily. (E11* VITAMIN D2 50,000 UNIT CAPSULE TAKE 1 CAPSULE BY MOUTH ONCE * PRIALT INTRATHEC. by INTRATHECAL route. LISINOPRIL 10 MG TABLET Take 1 tablet by mouth once d* AMLODIPINE 5 MG TABLET Take 1 tablet by mouth once d* BLOOD-GLUCOSE METER KIT 1 Each as needed. One Touch M* LANCETS Test blood sugar(s) 5 times d* HEPARIN LOCK FLUSH (PORCINE) * NURSING USE ONLY: USE FOR I* BLOOD SUGAR DIAGNOSTIC, DRUM-* Test blood sugar(s) 1 times d* BLOOD PRESSURE KIT-EXTRA LARG* Use as directed SODIUM CHLORIDE 0.9% FLUSH NURSING USE ONLY: USED FOR * Problem List As Of Date 10/15/2017 Noted Resolved Abdominal or Pelvic Swelling, Mass, or Lump, Ri*INVALID FOR*02/26/2010 Sebaceous Cyst [L72.3] INVALID FOR*02/26/2010 Unspecified Disorders of Bursae and Tendons in *INVALID FOR*02/26/2010 SURGERY FOLLOWUP, UNSPEC [Z09] INVALID FOR*02/26/2010 BENIGN HYPERTENSION [I10] INVALID FOR* DIARRHEA NOS [R19.7] BENIGN NEOPLASM LG BOWEL [D12.6] INVALID FOR* Malignant neoplasm of bladder (HCC) [C67.9] INVALID FOR* CALCULUS OF KIDNEY [N20.0] INVALID FOR* HYPERTONICITY OF BLADDER [N31.8] INVALID FOR* Herniated Cervical Disc [M50.20] INVALID FOR* Tobacco Abuse [Z72.0] INVALID FOR* Chest Pain [R07.9] INVALID FOR*02/26/2010 Closed Fracture of Cervical Spine [S12.9XXA] INVALID FOR* More... HNP (Herniated Nucleus Pulposus) with Myelopath*INVALID FOR* Dysmetabolic syndrome X [E88.81] INVALID FOR* Hemochromatosis [E83.119] INVALID FOR*10/05/2017 Acute venous embolism and thrombosis of unspeci*INVALID FOR*08/01/2014 Other pulmonary embolism and infarction [I26.99]INVALID FOR* Low serum testosterone level [R79.89] INVALID FOR* Vascular port complication [T82.9XXA] INVALID FOR* Cirrhosis (HCC) [K74.60] INVALID FOR* Hereditary hemochromatosis (HCC) [E83.110] INVALID FOR* Hepatic cirrhosis (HCC) [K74.60] INVALID FOR* Type 2 diabetes mellitus without complication, *INVALID FOR* Adjustment disorder with mixed anxiety and depr*INVALID FOR* Coagulopathy (HCC) [D68.9] INVALID FOR* Encounter Status:Closed by EZEQUIEL MURPHY on 10/15/17 CHANELL HEMATOCRIT Collected: 10/07/2017 Status: F Source: [place] 1:32 PM [facility] REPOSITORY TYPE CODE TESTS RESULT OUT OF REFERENCE UNITS RANGE LAB WHCT 39.0-51.0 % Hiram Hematocrit 45.7 Result Comment: Test performed at: [facility], [address] [place] [address]., [place] [address]. CHANELL HEMOGLOBIN Collected: 10/07/2017 Status: F Source: [place] 1:32 PM [facility] REPOSITORY TYPE CODE TESTS RESULT OUT OF REFERENCE UNITS RANGE LAB WHGB 13.0-17.0 g/dL Chanell Hemoglobin 16.0 Result Comment: Test performed at: [facility], [address] [place] [address]., [place] [address]. HOSP Observed: 10/07/2017 Status: COMPLETED Source: [place] 1:30 PM [facility] REPOSITORY Infusion Center ([facility]) YONATHAN COOL ([id number]) 1960 M Date Time Provider Department 10/07/17 1:30 PM TREATMENT RM 7 [facility] During your visit today, we recorded the following information about you: Temperature Pulse Blood pressure 97.7 degrees 97/minute 152/87 Referring Provider: LAURA VIRGEN [[id number]] Allergies As of Date: 10/07/2017 Noted Allergy Reaction KEFLEX (CEPHALEXIN) 03/11/2016 11 - Vomiting LYRICA (PREGABALIN) 05/31/2009 Comments: Pt. passed out and BP drop MORPHINE 09/16/2011 2 - Rash PROZAC (FLUOXETINE HCL) 12/12/2012 8 - GI Upset Date Reviewed: 10/07/2017 Reviewed by: Nakia Graham (Rn) LINH Worthington - Fully Assessed Reason for Visit: Phlebotomy [1172] Primary Visit Diagnosis:Hereditary hemochromatosis (HCC) [E83.110] Prescriptions as of 10/07/2017 Sig: INSULIN DETEMIR 100 UNIT/ML (* Inject 10 Units subcutaneousl* OXYCODONE-ACETAMINOPHEN 10 MG* Take 1 tablet by mouth every * FOLIC ACID 1 MG TABLET Take 1 tablet by mouth once d* ONETOUCH ULTRA TEST STRIPS TEST FIVE TIMES DAILY (E11.65* VICTOZA 3-EVERETT 0.6 MG/0.1 ML (* INJECT 1.8 MG SUBCUTANEOUSLY * FONDAPARINUX 10 MG/0.8 ML SUB* Inject 0.8 mL subcutaneously * TRAZODONE 100 MG TABLET Take 1 tablet by mouth daily * BLOOD-GLUCOSE METER KIT 1 Each as needed. SODIUM CHLORIDE 0.9% FLUSH Access implanted vascular acc* HEPARIN LOCK FLUSH (PORCINE) * Access implanted vascular acc* LANCING DEVICE WITH LANCETS K* 1 Each five times daily. (E11* VITAMIN D2 50,000 UNIT CAPSULE TAKE 1 CAPSULE BY MOUTH ONCE * PRIALT INTRATHEC. by INTRATHECAL route. LISINOPRIL 10 MG TABLET Take 1 tablet by mouth once d* AMLODIPINE 5 MG TABLET Take 1 tablet by mouth once d* BLOOD-GLUCOSE METER KIT 1 Each as needed. One Touch M* LANCETS Test blood sugar(s) 5 times d* HEPARIN LOCK FLUSH (PORCINE) * NURSING USE ONLY: USE FOR I* BLOOD SUGAR DIAGNOSTIC, DRUM-* Test blood sugar(s) 1 times d* BLOOD PRESSURE KIT-EXTRA LARG* Use as directed SODIUM CHLORIDE 0.9% FLUSH NURSING USE ONLY: USED FOR * Problem List As Of Date 10/07/2017 Noted Resolved Abdominal or Pelvic Swelling, Mass, or Lump, Ri*INVALID FOR*02/26/2010 Sebaceous Cyst [L72.3] INVALID FOR*02/26/2010 Unspecified Disorders of Bursae and Tendons in *INVALID FOR*02/26/2010 SURGERY FOLLOWUP, UNSPEC [Z09] INVALID FOR*02/26/2010 BENIGN HYPERTENSION [I10] INVALID FOR* DIARRHEA NOS [R19.7] BENIGN NEOPLASM LG BOWEL [D12.6] INVALID FOR* Malignant neoplasm of bladder (HCC) [C67.9] INVALID FOR* CALCULUS OF KIDNEY [N20.0] INVALID FOR* HYPERTONICITY OF BLADDER [N31.8] INVALID FOR* Herniated Cervical Disc [M50.20] INVALID FOR* Tobacco Abuse [Z72.0] INVALID FOR* Chest Pain [R07.9] INVALID FOR*02/26/2010 Closed Fracture of Cervical Spine [S12.9XXA] INVALID FOR* More... HNP (Herniated Nucleus Pulposus) with Myelopath*INVALID FOR* Dysmetabolic syndrome X [E88.81] INVALID FOR* Hemochromatosis [E83.119] INVALID FOR*10/05/2017 Acute venous embolism and thrombosis of unspeci*INVALID FOR*08/01/2014 Other pulmonary embolism and infarction [I26.99]INVALID FOR* Low serum testosterone level [R79.89] INVALID FOR* Vascular port complication [T82.9XXA] INVALID FOR* Cirrhosis (HCC) [K74.60] INVALID FOR* Hereditary hemochromatosis (HCC) [E83.110] INVALID FOR* Hepatic cirrhosis (HCC) [K74.60] INVALID FOR* Type 2 diabetes mellitus without complication, *INVALID FOR* Adjustment disorder with mixed anxiety and depr*INVALID FOR* Coagulopathy (HCC) [D68.9] INVALID FOR* Encounter Status:Closed by NAKIA WORTHINGTON on 10/07/17 HOSP Observed: 10/07/2017 Status: COMPLETED Source: [place] 1:15 PM [facility] REPOSITORY Infusion Center ([facility]) YONATHAN COOL ([id number]) 1960 M Date Time Provider Department 10/07/17 1:15 PM LAB/PORT [facility] During your visit today, we recorded the following information about you: Referring Provider: LAURA VIRGEN [[id number]] Allergies As of Date: 10/07/2017 Noted Allergy Reaction KEFLEX (CEPHALEXIN) 03/11/2016 11 - Vomiting LYRICA (PREGABALIN) 05/31/2009 Comments: Pt. passed out and BP drop MORPHINE 09/16/2011 2 - Rash PROZAC (FLUOXETINE HCL) 12/12/2012 8 - GI Upset Date Reviewed: 10/05/2017 Reviewed by: Sisi Tipton Ma - Fully Assessed Reason for Visit: Blood Draw (CVAD) [1758] Primary Visit Diagnosis:Malignant neoplasm of overlapping sites of bladder (HCC) [C67.8] Prescriptions as of 10/07/2017 Sig: INSULIN DETEMIR 100 UNIT/ML (* Inject 10 Units subcutaneousl* OXYCODONE-ACETAMINOPHEN 10 MG* Take 1 tablet by mouth every * FOLIC ACID 1 MG TABLET Take 1 tablet by mouth once d* ONETOUCH ULTRA TEST STRIPS TEST FIVE TIMES DAILY (E11.65* VICTOZA 3-EVERETT 0.6 MG/0.1 ML (* INJECT 1.8 MG SUBCUTANEOUSLY * FONDAPARINUX 10 MG/0.8 ML SUB* Inject 0.8 mL subcutaneously * TRAZODONE 100 MG TABLET Take 1 tablet by mouth daily * BLOOD-GLUCOSE METER KIT 1 Each as needed. SODIUM CHLORIDE 0.9% FLUSH Access implanted vascular acc* HEPARIN LOCK FLUSH (PORCINE) * Access implanted vascular acc* LANCING DEVICE WITH LANCETS K* 1 Each five times daily. (E11* VITAMIN D2 50,000 UNIT CAPSULE TAKE 1 CAPSULE BY MOUTH ONCE * PRIALT INTRATHEC. by INTRATHECAL route. LISINOPRIL 10 MG TABLET Take 1 tablet by mouth once d* AMLODIPINE 5 MG TABLET Take 1 tablet by mouth once d* BLOOD-GLUCOSE METER KIT 1 Each as needed. One Touch M* LANCETS Test blood sugar(s) 5 times d* HEPARIN LOCK FLUSH (PORCINE) * NURSING USE ONLY: USE FOR I* BLOOD SUGAR DIAGNOSTIC, DRUM-* Test blood sugar(s) 1 times d* BLOOD PRESSURE KIT-EXTRA LARG* Use as directed SODIUM CHLORIDE 0.9% FLUSH NURSING USE ONLY: USED FOR * Problem List As Of Date 10/07/2017 Noted Resolved Abdominal or Pelvic Swelling, Mass, or Lump, Ri*INVALID FOR*02/26/2010 Sebaceous Cyst [L72.3] INVALID FOR*02/26/2010 Unspecified Disorders of Bursae and Tendons in *INVALID FOR*02/26/2010 SURGERY FOLLOWUP, UNSPEC [Z09] INVALID FOR*02/26/2010 BENIGN HYPERTENSION [I10] INVALID FOR* DIARRHEA NOS [R19.7] BENIGN NEOPLASM LG BOWEL [D12.6] INVALID FOR* Malignant neoplasm of bladder (HCC) [C67.9] INVALID FOR* CALCULUS OF KIDNEY [N20.0] INVALID FOR* HYPERTONICITY OF BLADDER [N31.8] INVALID FOR* Herniated Cervical Disc [M50.20] INVALID FOR* Tobacco Abuse [Z72.0] INVALID FOR* Chest Pain [R07.9] INVALID FOR*02/26/2010 Closed Fracture of Cervical Spine [S12.9XXA] INVALID FOR* More... HNP (Herniated Nucleus Pulposus) with Myelopath*INVALID FOR* Dysmetabolic syndrome X [E88.81] INVALID FOR* Hemochromatosis [E83.119] INVALID FOR*10/05/2017 Acute venous embolism and thrombosis of unspeci*INVALID FOR*08/01/2014 Other pulmonary embolism and infarction [I26.99]INVALID FOR* Low serum testosterone level [R79.89] INVALID FOR* Vascular port complication [T82.9XXA] INVALID FOR* Cirrhosis (HCC) [K74.60] INVALID FOR* Hereditary hemochromatosis (HCC) [E83.110] INVALID FOR* Hepatic cirrhosis (HCC) [K74.60] INVALID FOR* Type 2 diabetes mellitus without complication, *INVALID FOR* Adjustment disorder with mixed anxiety and depr*INVALID FOR* Coagulopathy (HCC) [D68.9] INVALID FOR* Encounter Status:Closed by NAKIA WORTHINGTON on 10/07/17 PROGRESS Observed: 10/05/2017 Status: COMPLETED Source: [place] 9:10 AM [facility] REPOSITORY O ID: [id number] Author: Bryn Gould Service: (none) Author Type: Physician Type: Progress Notes Filed: 10/05/2017 11:04 AM Note Text: Chief Complaint Patient presents with: Follow Up: diabetes check-up HPI Yonathan Cool is a 56 year old male who presents here today for follow-up of the blood pressure. Hemochromatosis.Diabetes. Cervical disc disease. ACTIVE PROBLEM LIST Essential Hypertension, Benign Diarrhea Benign Neoplasm of Colon Malignant Neoplasm of Bladder (Hcc) Calculus of Kidney Hypertonicity of Bladder Herniated Cervical Disc Tobacco Abuse Closed Fracture of Cervical Spine (Hcc) Hnp (Herniated Nucleus Pulposus) With Myelopathy, Cervical Dysmetabolic Syndrome X Hemochromatosis Other Pulmonary Embolism and Infarction Low Serum Testosterone Level Vascular Port Complication Cirrhosis (Hcc) Hereditary Hemochromatosis (Hcc) Hepatic Cirrhosis (Hcc) Type 2 Diabetes Mellitus Without Complication, With Long-Term Current Use of Insulin (Hcc) Adjustment Disorder With Mixed Anxiety and Depressed Mood Coagulopathy (Hcc) He had surgery on port after blood clot in R upper extrem. Port in L shoulder complicated by bleeding. Dr Rose removed the port, replaced it with R side port, had to pack the wound in Th L upper chest wall for weeks. He's on technician terminal and repeater fondaparinux He quit smoking. Sugar control is better. He's having low sugars He has upcoming cervical spinal fusion hardware coming at [facility]. He's had surgery in December for the cervical spine. Past medical history, appointments, medications, allergies reviewed. Previous Medical History PAST MEDICAL HISTORY Diagnosis Date - Benign neoplasm of colon - Bladder cancer (HCC) BCG tx 2008, 2009 - Calculus of kidney - Depression - Diabetes (HCC) - Diarrhea - Hemochromatosis - Mixed hyperlipidemia Hyperlipidemia - Other complications due to other vascular device, implant, and graft 09/04/13 - PE (pulmonary embolism) related to R arm clot from VAD - Unspecified essential hypertension Essential hypertension - Vomiting 05/27/2016 Previous Surgical History PAST SURGICAL HISTORY Procedure Laterality Date - COLONOS W/REM POLYP SNARE 06/11/08 - COLONOS W/REM POLYP SNARE 04-10-13 - COLONS W/REM POLYP HT BX 05/27/2016 - CYSTOTOMY,EXCIS BLADDER TUMOR 12/27 X2 - EGD W/O BRSH SPECIMEN W/BX 04-10-13 - EGD W/O OR W/BRUSH/WASH 05/27/2016 - EXCISION NOSE POLYP(S),SIMPLE 1999 Nasal polypectomy - FLUOROGUIDE FOR VEIN DEVICE 09/04/13 - INTRATHECAL PAIN PUMP 11/29 - INTRATHECAL PAIN PUMP 07/2016 - LAP HERNIA REPAIR RECURRENT-JARAD 05-22-10 RIGHT - LAPAROSCOPIC CHOLEYCYSTECTOMY 10/24/06 Cholecystectomy, lap - PAST SURGICAL HISTORY OF 2006 left shoulder surgery - PAST SURGICAL HISTORY OF 2007 bone spur- hardware placement - b/l feet - REPAIR SHOULDER CAPSULE,ANTERIOR Repair shoulder dislocation - S SPINAL PLATES AND SCREWS OTHER 06/28 11/27 C2-C7, neck - 28 plates, screws - TUNNEL VAD W SUB Q PORT >=5 02-09-13 - TUNNEL VAD W SUB Q PORT >=5 09/04/13 - US GUIDE, VASCULAR ACCESS 09/04/13 Family History FAMILY HISTORY Problem Relation Age of Onset - Coronary Artery Disease Mother - Heart Father heart failure. - Diabetes Father - Cancer Paternal Grandmother - Diabetes Paternal Grandmother - Hypertension Sister - Diabetes Maternal Grandmother - Diabetes Daughter - Diabetes Paternal Grandfather - Diabetes Other neice - Diabetes Maternal Grandfather - Colon Cancer Other first cousin Patient Allergies ALLERGIES Allergen Reactions - Keflex [Cephalexin] Vomiting - Lyrica [Pregabalin] Pt. passed out and BP drop - Morphine Rash - Prozac [Fluoxetine * GI Upset Current Medications Current Outpatient Prescriptions on File Prior to Visit: oxyCODONE-acetaminophen (PERCOCET) 10-325 mg tablet Take 1 tablet by mouth every 6 hours as needed. folic acid 1 mg tablet Take 1 tablet by mouth once daily. ONETOUCH ULTRA TEST test strip TEST FIVE TIMES DAILY (E11.65 INSULIN YES) VICTOZA 3-EVERETT 0.6 mg/0.1 mL (18 mg/3 mL) pnij INJECT 1.8 MG SUBCUTANEOUSLY ONCE DAILY. 3 MONTH SUPPLY LEVEMIR FLEXTOUCH 100 unit/mL (3 mL) inpn injection INJECT 14 UNITS SUBCUTANEOUSLY DAILY AT BEDTIME. fondaparinux (ARIXTRA) 10 mg/0.8 mL syrg Inject 0.8 mL subcutaneously q 24 HR. traZODone (DESYREL) 100 mg tablet Take 1 tablet by mouth daily at bedtime. Blood-Glucose Meter (ONETOUCH ULTRA2) monitoring kit 1 Each as needed. 0.9% NaCl Access implanted vascular access device (IVAD) as needed for flush, blood draw or treatment.Flush IVAD with 10-20 mL NS every 4 weeks and PRN when IVAD not in use. heparin 100 unit/mL syrg Access implanted vascular access device (IVAD) as needed for flush, blood draw or treatment. Before de-accessing port, flush with 10-20ml normal saline and follow with 5 mL heparin (100 units/mL) (if no heparin allergy). De-access port on treatment completion. Lancing Device with Lancets (ACCU-CHEK SOFT DEV LANCETS) kit 1 Each five times daily. (E11.9, Z79.4) Type 2 diabetes mellitus without complication, with long-term current use of insulin VITAMIN D 50,000 unit capsule TAKE 1 CAPSULE BY MOUTH ONCE EACH WEEK. ZICONOTIDE ACETATE (PRIALT INTRATHEC.) by INTRATHECAL route. lisinopril (ZESTRIL, PRINIVIL) 10 mg tablet Take 1 tablet by mouth once daily. amLODIPine (NORVASC) 5 mg tablet Take 1 tablet by mouth once daily. Blood-Glucose Meter (ONETOUCH ULTRA2) monitoring kit 1 Each as needed. One Touch Meter Kit Diagnosis: Diabetes Mellitus Lancets lancets Test blood sugar(s) 5 times daily. Dx: E11.65. Insulin: yes heparin 100 unit/mL syrg NURSING USE ONLY: USE FOR IMPLANTED VASCULAR ACCESS DEVICE (IVAD) FLUSH. AMBULATORY/OUTPATIENT: PLEASE REORDER UPON HOSPITAL DISCHARGE May access implanted vascular access device (IVAD) as needed for treatment. Before de-accessing port, flush with 10-20ml normal saline and follow with 5 mL heparin (100 units/mL) (if no heparin allergy). De-access port on treatment completion. Blood Sugar Diagnostic, Drum (ACCU-CHEK COMPACT TEST) strp Test blood sugar(s) 1 times daily. Dx: 250.00. Insulin: No Blood Pressure Kit-Extra Large kit Use as directed 0.9% NaCl NURSING USE ONLY: USED FOR IVAD ACCESS. AMBULATORY/OUTPATIENT: PLEASE REORDER UPON HOSPITAL DISCHARGE May access implanted vascular access device (IVAD) as needed for treatment.Flush IVAD with 10-20 mL NS every 4 weeks and PRN when IVAD not in use. No current facility-administered medications on file prior to visit. 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 Alcohol use: No Drug use: No Sexual activity: Yes Partners with: Female control/protection: Rhythm Other Topics Concern No BLOOD TRANSFUSIONS No CAFFEINE No OCCUPATIONAL EXPOSURE No HOBBY HAZARD No SLEEP CONCERN No STRESS CONCERN No WEIGHT CONCERN No DIET No BACK CARE No EXERCISE No BIKE HELMET No SEAT BELT No SELF EXAMS No Social History Narrative Social security disability (neck). 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 Two dogs. 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 ROS: General: Feels OK , considering his various conditions. no weight changes, fever, chills. HEENT: No sinus congestion, earache, sore throat. Cardiac: No chest pain, palpitations, shortness of breath Resp: No cough, wheeze. GI: No reflux symptoms, food intolerance, bowel changes. :ED ongoing pink urine Dr Ratliff didn't do cystoscopy. His [place] urologist left the region. MS: neck pain Diabetes: admits to low sugars. PHYSICAL EXAMINATION BP 149/88 (BP Site: Left Arm, BP Position: Sitting, BP Cuff Size: Large Adult) Pulse 79 Temp 36.5 ?C (97.7 ?F) Resp 16 Ht 182.9 cm (6') Wt 117.8 kg (259 lb 12.8 oz) SpO2 93% BMI 35.24 kg/m2 Last 1 Encounter BP Readings: Date: BP: 10/05/2017 149/88 General: Alert and oriented, no distress, pleasant and cooperative. Heart: Regular, normal S1 and S2, no murmurs, rubs, or gallops Lungs: Clear to auscultation bilaterally Abdomen: Benign Extremities: Feet/ankles without edema, posterior tibial pulses full and symmetrical Health Maintenance List DILATED RETINAL EXAM due on 01/21/1963 ONE PNEUMOVAX PRIOR TO AGE 67 due on 1978 URINE ALBUMIN CREATININE RATIO due on 03/19/2017 DIABETIC FOOT EXAM due on 05/04/2017 HBA1C due on 02/24/2018 LDL due on 08/26/2018 COLORECTAL CANCER SCREENING,SEE MODIFIER due on 05/27/2019 TETANUS due on 06/01/2027 PROSTATE CANCER SCREENING DISCUSSION Completed INFLUENZA Completed HEPATITIS C SCREENING Completed Data reviewed Lab Results Component Value Date/Time CHOL 169 08/26/2017 02:05 PM HDL 33 (L) 08/26/2017 02:05 PM LDL Unable to calculate due to increased Triglycerides. See LDL-Chol, Direct. 08/26/2017 02:05 PM HBA1C 5.3 08/26/2017 02:05 PM TSH 2.060 12/03/2014 08:40 AM PSA 1.72 02/04/2011 09:15 AM PSA 0.37 01/02/2009 10:11 AM Assessment/Plan: (I10) Essential hypertension, benign (primary encounter diagnosis) Comment: bp high today (didn't take BP meds) Plan: be sure to take bp med before upcoming [place] . (E11.9, Z79.4) Type 2 diabetes mellitus without complication, with long-term current use of insulin (HCC) Comment: A1c of 5.3 Plan: insulin detemir (LEVEMIR FLEXTOUCH) 100 unit/mL (3 mL) inpn injection Cut the dose to (D68.9) Coagulopathy (HCC) Comment: on chronic anticoagulation. Plan: continue (R31.29) Microscopic hematuria Comment: at al, but hasn't had follow through Plan: URINALYSIS WITH MICROSCOPIC Check urine at next opportunity (E83.110) Hereditary hemochromatosis (HCC) Comment: following hematology chronically Plan: (T82.9XXD) Vascular port complication, subsequent encounter Comment: with clot, removal . Replacement-->bleeding/removal/ wound/ replacement. Plan: continue technician terminal and repeater anticoagulation, needs the port. (E78.1) Hypertriglyceridemia Comment: unexpectedly high vs prior labs Plan: repeat He mentions wanting testosterone supplementation. Deferred discussion of this with all the other complications he's had, seems an unlikely addition to his regimen. Signed Prescriptions Disp Refills insulin detemir (LEVEMIR FLEXTOUCH) 100 unit/mL (3 mL) inpn injection Sig: Inject 10 Units subcutaneously daily at bedtime. DEAN: No RTO: 3-4 mos, he has major neck surgery coming soon. Bryn Gould MD CNOV Observed: 10/05/2017 Status: COMPLETED Source: [place] 9:00 AM [facility] REPOSITORY Office Visit (WADS) YONATHAN COOL ([id number]) 1960 M Date Time Provider Department 10/05/17 9:00 AM BRYN GOULD During your visit today, we recorded the following information about you: Temperature Pulse Respiration Blood pressure 97.7 degrees 79/minute 16/minute 142/92 Weight Height 117.8 kg 1.829 m Bryn Gould MD 10/05/2017 11:04 AM Signed Chief Complaint Patient presents with: Follow Up: diabetes check-up HPI Yonathan Cool is a 56 year old male who presents here today for follow-up of the blood pressure. Hemochromatosis.Diabetes. Cervical disc disease. ACTIVE PROBLEM LIST Essential Hypertension, Benign Diarrhea Benign Neoplasm of Colon Malignant Neoplasm of Bladder (Hcc) Calculus of Kidney Hypertonicity of Bladder Herniated Cervical Disc Tobacco Abuse Closed Fracture of Cervical Spine (Hcc) Hnp (Herniated Nucleus Pulposus) With Myelopathy, Cervical Dysmetabolic Syndrome X Hemochromatosis Other Pulmonary Embolism and Infarction Low Serum Testosterone Level Vascular Port Complication Cirrhosis (Hcc) Hereditary Hemochromatosis (Hcc) Hepatic Cirrhosis (Hcc) Type 2 Diabetes Mellitus Without Complication, With Long-Term Current Use of Insulin (Hcc) Adjustment Disorder With Mixed Anxiety and Depressed Mood Coagulopathy (Hcc) He had surgery on port after blood clot in R upper extrem. Port in L shoulder complicated by bleeding. Dr Rose removed the port, replaced it with R side port, had to pack the wound in Th L upper chest wall for weeks. He's on senior living fondaparinux He quit smoking. Sugar control is better. He's having low sugars He has upcoming cervical spinal fusion hardware coming at [facility]. He's had surgery in December for the cervical spine. Past medical history, appointments, medications, allergies reviewed. Previous Medical History PAST MEDICAL HISTORY Diagnosis Date - Benign neoplasm of colon - Bladder cancer (HCC) BCG tx 2008, 2009 - Calculus of kidney - Depression - Diabetes (HCC) - Diarrhea - Hemochromatosis - Mixed hyperlipidemia Hyperlipidemia - Other complications due to other vascular device, implant, and graft 09/04/13 - PE (pulmonary embolism) related to R arm clot from VAD - Unspecified essential hypertension Essential hypertension - Vomiting 05/27/2016 Previous Surgical History PAST SURGICAL HISTORY Procedure Laterality Date - COLONOS W/REM POLYP SNARE 06/11/08 - COLONOS W/REM POLYP SNARE 04-10-13 - COLONS W/REM POLYP HT BX 05/27/2016 - CYSTOTOMY,EXCIS BLADDER TUMOR 12/27 X2 - EGD W/O BRSH SPECIMEN W/BX 04-10-13 - EGD W/O OR W/BRUSH/WASH 05/27/2016 - EXCISION NOSE POLYP(S),SIMPLE 1999 Nasal polypectomy - FLUOROGUIDE FOR VEIN DEVICE 09/04/13 - INTRATHECAL PAIN PUMP 11/29 - INTRATHECAL PAIN PUMP 07/2016 - LAP HERNIA REPAIR RECURRENT-JARAD 05-22-10 RIGHT - LAPAROSCOPIC CHOLEYCYSTECTOMY 10/24/06 Cholecystectomy, lap - PAST SURGICAL HISTORY OF 2006 left shoulder surgery - PAST SURGICAL HISTORY OF 2007 bone spur- hardware placement - b/l feet - REPAIR SHOULDER CAPSULE,ANTERIOR Repair shoulder dislocation - S SPINAL PLATES ANDamp; SCREWS OTHER 06/28 11/27 C2-C7, neck - 28 plates, screws - TUNNEL VAD W SUB Q PORT ANDgt;=02-09- - TUNNEL VAD W SUB Q PORT ANDgt;=5 09/04/13 - US GUIDE, VASCULAR ACCESS 09/04/13 Family History FAMILY HISTORY Problem Relation Age of Onset - Coronary Artery Disease Mother - Heart Father heart failure. - Diabetes Father - Cancer Paternal Grandmother - Diabetes Paternal Grandmother - Hypertension Sister - Diabetes Maternal Grandmother - Diabetes Daughter - Diabetes Paternal Grandfather - Diabetes Other neice - Diabetes Maternal Grandfather - Colon Cancer Other first cousin Patient Allergies ALLERGIES Allergen Reactions - Keflex [Cephalexin] Vomiting - Lyrica [Pregabalin] Pt. passed out and BP drop - Morphine Rash - Prozac [Fluoxetine * GI Upset Current Medications Current Outpatient Prescriptions on File Prior to Visit: oxyCODONE-acetaminophen (PERCOCET) 10-325 mg tablet Take 1 tablet by mouth every 6 hours as needed. folic acid 1 mg tablet Take 1 tablet by mouth once daily. ONETOUCH ULTRA TEST test strip TEST FIVE TIMES DAILY (E11.65 INSULIN YES) VICTOZA 3-EVERETT 0.6 mg/0.1 mL (18 mg/3 mL) pnij INJECT 1.8 MG SUBCUTANEOUSLY ONCE DAILY. 3 MONTH SUPPLY LEVEMIR FLEXTOUCH 100 unit/mL (3 mL) inpn injection INJECT 14 UNITS SUBCUTANEOUSLY DAILY AT BEDTIME. fondaparinux (ARIXTRA) 10 mg/0.8 mL syrg Inject 0.8 mL subcutaneously q 24 HR. traZODone (DESYREL) 100 mg tablet Take 1 tablet by mouth daily at bedtime. Blood-Glucose Meter (ONETOUCH ULTRA2) monitoring kit 1 Each as needed. 0.9% NaCl Access implanted vascular access device (IVAD) as needed for flush, blood draw or treatment.Flush IVAD with 10-20 mL NS every 4 weeks and PRN when IVAD not in use. heparin 100 unit/mL syrg Access implanted vascular access device (IVAD) as needed for flush, blood draw or treatment. Before de-accessing port, flush with 10-20ml normal saline and follow with 5 mL heparin (100 units/mL) (if no heparin allergy). De-access port on treatment completion. Lancing Device with Lancets (ACCU-CHEK SOFT DEV LANCETS) kit 1 Each five times daily. (E11.9, Z79.4) Type 2 diabetes mellitus without complication, with long-term current use of insulin VITAMIN D 50,000 unit capsule TAKE 1 CAPSULE BY MOUTH ONCE EACH WEEK. ZICONOTIDE ACETATE (PRIALT INTRATHEC.) by INTRATHECAL route. lisinopril (ZESTRIL, PRINIVIL) 10 mg tablet Take 1 tablet by mouth once daily. amLODIPine (NORVASC) 5 mg tablet Take 1 tablet by mouth once daily. Blood-Glucose Meter (ONETOUCH ULTRA2) monitoring kit 1 Each as needed. One Touch Meter Kit Diagnosis: Diabetes Mellitus Lancets lancets Test blood sugar(s) 5 times daily. Dx: E11.65. Insulin: yes heparin 100 unit/mL syrg NURSING USE ONLY: USE FOR IMPLANTED VASCULAR ACCESS DEVICE (IVAD) FLUSH. AMBULATORY/OUTPATIENT: PLEASE REORDER UPON HOSPITAL DISCHARGE May access implanted vascular access device (IVAD) as needed for treatment. Before de-accessing port, flush with 10-20ml normal saline and follow with 5 mL heparin (100 units/mL) (if no heparin allergy). De-access port on treatment completion. Blood Sugar Diagnostic, Drum (ACCU-CHEK COMPACT TEST) strp Test blood sugar(s) 1 times daily. Dx: 250.00. Insulin: No Blood Pressure Kit-Extra Large kit Use as directed 0.9% NaCl NURSING USE ONLY: USED FOR IVAD ACCESS. AMBULATORY/OUTPATIENT: PLEASE REORDER UPON HOSPITAL DISCHARGE May access implanted vascular access device (IVAD) as needed for treatment.Flush IVAD with 10-20 mL NS every 4 weeks and PRN when IVAD not in use. No current facility-administered medications on file prior to visit. 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 Alcohol use: No Drug use: No Sexual activity: Yes Partners with: Female control/protection: Rhythm Other Topics Concern No BLOOD TRANSFUSIONS No CAFFEINE No OCCUPATIONAL EXPOSURE No HOBBY HAZARD No SLEEP CONCERN No STRESS CONCERN No WEIGHT CONCERN No DIET No BACK CARE No EXERCISE No BIKE HELMET No SEAT BELT No SELF EXAMS No Social History Narrative Social security disability (neck). 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 Two dogs. 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 ROS: General: Feels OK , considering his various conditions. no weight changes, fever, chills. HEENT: No sinus congestion, earache, sore throat. Cardiac: No chest pain, palpitations, shortness of breath Resp: No cough, wheeze. GI: No reflux symptoms, food intolerance, bowel changes. :ED ongoing pink urine Dr Ratliff didn't do cystoscopy. His [place] urologist left the region. MS: neck pain Diabetes: admits to low sugars. PHYSICAL EXAMINATION BP 149/88 (BP Site: Left Arm, BP Position: Sitting, BP Cuff Size: Large Adult) Pulse 79 Temp 36.5 ?C (97.7 ?F) Resp 16 Ht 182.9 cm (6') Wt 117.8 kg (259 lb 12.8 oz) SpO2 93% BMI 35.24 kg/m2 Last 1 Encounter BP Readings: Date: BP: 10/05/2017 149/88 General: Alert and oriented, no distress, pleasant and cooperative. Heart: Regular, normal S1 and S2, no murmurs, rubs, or gallops Lungs: Clear to auscultation bilaterally Abdomen: Benign Extremities: Feet/ankles without edema, posterior tibial pulses full and symmetrical Health Maintenance List DILATED RETINAL EXAM due on 01/21/1963 ONE PNEUMOVAX PRIOR TO AGE 67 due on 1978 URINE ALBUMIN CREATININE RATIO due on 03/19/2017 DIABETIC FOOT EXAM due on 05/04/2017 HBA1C due on 02/24/2018 LDL due on 08/26/2018 COLORECTAL CANCER SCREENING,SEE MODIFIER due on 05/27/2019 TETANUS due on 06/01/2027 PROSTATE CANCER SCREENING DISCUSSION Completed INFLUENZA Completed HEPATITIS C SCREENING Completed Data reviewed Lab Results Component Value Date/Time CHOL 169 08/26/2017 02:05 PM HDL 33 (L) 08/26/2017 02:05 PM LDL Unable to calculate due to increased Triglycerides. See LDL-Chol, Direct. 08/26/2017 02:05 PM HBA1C 5.3 08/26/2017 02:05 PM TSH 2.060 12/03/2014 08:40 AM PSA 1.72 02/04/2011 09:15 AM PSA 0.37 01/02/2009 10:11 AM Assessment/Plan: (I10) Essential hypertension, benign (primary encounter diagnosis) Comment: bp high today (didn't take BP meds) Plan: be sure to take bp med before upcoming NV . (E11.9, Z79.4) Type 2 diabetes mellitus without complication, with long-term current use of insulin (HCC) Comment: A1c of 5.3 Plan: insulin detemir (LEVEMIR FLEXTOUCH) 100 unit/mL (3 mL) inpn injection Cut the dose to (D68.9) Coagulopathy (HCC) Comment: on chronic anticoagulation. Plan: continue (R31.29) Microscopic hematuria Comment: at eval, but hasn't had follow through Plan: URINALYSIS WITH MICROSCOPIC Check urine at next opportunity (E83.110) Hereditary hemochromatosis (HCC) Comment: following hematology chronically Plan: (T82.9XXD) Vascular port complication, subsequent encounter Comment: with clot, removal . Replacement--ANDgt;bleeding/removal/ wound/ replacement. Plan: continue senior living anticoagulation, needs the port. (E78.1) Hypertriglyceridemia Comment: unexpectedly high vs prior labs Plan: repeat He mentions wanting testosterone supplementation. Deferred discussion of this with all the other complications he's had, seems an unlikely addition to his regimen. Signed Prescriptions Disp Refills insulin detemir (LEVEMIR FLEXTOUCH) 100 unit/mL (3 mL) inpn injection Sig: Inject 10 Units subcutaneously daily at bedtime. DEAN: No RTO: 3-4 mos, he has major neck surgery coming soon. Bryn Gould MD Referring Provider: SELF [200] Allergies As of Date: 10/05/2017 Noted Allergy Reaction KEFLEX (CEPHALEXIN) 03/11/2016 11 - Vomiting LYRICA (PREGABALIN) 05/31/2009 Comments: Pt. passed out and BP drop MORPHINE 09/16/2011 2 - Rash PROZAC (FLUOXETINE HCL) 12/12/2012 8 - GI Upset Date Reviewed: 10/05/2017 Reviewed by: Sisi Tipton Ma - Fully Assessed Reason for Visit: Follow Up [171] Cmt: diabetes check-up Primary Visit Diagnosis:Essential hypertension, benign [I10] Other Visit Diagnoses:Type 2 diabetes mellitus without complication, with long-term current use of insulin (HCC) [E11.9, Z79.4] Coagulopathy (HCC) [D68.9] Microscopic hematuria [R31.29] Hereditary hemochromatosis (HCC) [E83.110] Vascular port complication, subsequent encounter [T82.9XXD] Hypertriglyceridemia [E78.1] Order(s):insulin detemir (LEVEMIR FLEXTOUCH) 100 unit/mL (3 mL) inpn injectionInject 10 Units subcutaneously daily at bedtime.Disp: Rfl: URINALYSIS WITH MICROSCOPIC [SQUAWMIC] Order #: [id number] Prescriptions as of 10/05/2017 Sig: INSULIN DETEMIR 100 UNIT/ML (* Inject 10 Units subcutaneousl* OXYCODONE-ACETAMINOPHEN 10 MG* Take 1 tablet by mouth every * FOLIC ACID 1 MG TABLET Take 1 tablet by mouth once d* ONETOUCH ULTRA TEST STRIPS TEST FIVE TIMES DAILY (E11.65* VICTOZA 3-EVERETT 0.6 MG/0.1 ML (* INJECT 1.8 MG SUBCUTANEOUSLY * FONDAPARINUX 10 MG/0.8 ML SUB* Inject 0.8 mL subcutaneously * TRAZODONE 100 MG TABLET Take 1 tablet by mouth daily * BLOOD-GLUCOSE METER KIT 1 Each as needed. SODIUM CHLORIDE 0.9% FLUSH Access implanted vascular acc* HEPARIN LOCK FLUSH (PORCINE) * Access implanted vascular acc* LANCING DEVICE WITH LANCETS K* 1 Each five times daily. (E11* VITAMIN D2 50,000 UNIT CAPSULE TAKE 1 CAPSULE BY MOUTH ONCE * PRIALT INTRATHEC. by INTRATHECAL route. LISINOPRIL 10 MG TABLET Take 1 tablet by mouth once d* AMLODIPINE 5 MG TABLET Take 1 tablet by mouth once d* BLOOD-GLUCOSE METER KIT 1 Each as needed. One Touch M* LANCETS Test blood sugar(s) 5 times d* HEPARIN LOCK FLUSH (PORCINE) * NURSING USE ONLY: USE FOR I* BLOOD SUGAR DIAGNOSTIC, DRUM-* Test blood sugar(s) 1 times d* BLOOD PRESSURE KIT-EXTRA LARG* Use as directed SODIUM CHLORIDE 0.9% FLUSH NURSING USE ONLY: USED FOR * Problem List As Of Date 10/05/2017 Noted Resolved Abdominal or Pelvic Swelling, Mass, or Lump, Ri*INVALID FOR*02/26/2010 Sebaceous Cyst [L72.3] INVALID FOR*02/26/2010 Unspecified Disorders of Bursae and Tendons in *INVALID FOR*02/26/2010 SURGERY FOLLOWUP, UNSPEC [Z09] INVALID FOR*02/26/2010 BENIGN HYPERTENSION [I10] INVALID FOR* DIARRHEA NOS [R19.7] BENIGN NEOPLASM LG BOWEL [D12.6] INVALID FOR* Malignant neoplasm of bladder (HCC) [C67.9] INVALID FOR* CALCULUS OF KIDNEY [N20.0] INVALID FOR* HYPERTONICITY OF BLADDER [N31.8] INVALID FOR* Herniated Cervical Disc [M50.20] INVALID FOR* Tobacco Abuse [Z72.0] INVALID FOR* Chest Pain [R07.9] INVALID FOR*02/26/2010 Closed Fracture of Cervical Spine [S12.9XXA] INVALID FOR* More... HNP (Herniated Nucleus Pulposus) with Myelopath*INVALID FOR* Dysmetabolic syndrome X [E88.81] INVALID FOR* Hemochromatosis [E83.119] INVALID FOR*10/05/2017 Acute venous embolism and thrombosis of unspeci*INVALID FOR*08/01/2014 Other pulmonary embolism and infarction [I26.99]INVALID FOR* Low serum testosterone level [R79.89] INVALID FOR* Vascular port complication [T82.9XXA] INVALID FOR* Cirrhosis (HCC) [K74.60] INVALID FOR* Hereditary hemochromatosis (HCC) [E83.110] INVALID FOR* Hepatic cirrhosis (HCC) [K74.60] INVALID FOR* Type 2 diabetes mellitus without complication, *INVALID FOR* Adjustment disorder with mixed anxiety and depr*INVALID FOR* Coagulopathy (HCC) [D68.9] INVALID FOR* Prescriptions ordered this encounter Disp Refills Start End INSULIN DETEMIR 100 UNIT/ML (3 ML) S* 10/05/2017 Class: Med Update Route: SUBCUTANEOUS Sig: Inject 10 Units subcutaneously daily at bedtime. Medications Discontinued During This Encounter LEVEMIR FLEXTOUCH 100 unit/mL (3 mL)* 15 P* 3 06/23/2017 10/05/2017 Sig: INJECT 14 UNITS SUBCUTANEOUSLY DAILY AT BEDTIME. Disc: Reason for discontinue is not on file. Encounter Status:Closed by XAVIER GOULD MD on 10/05/17 RE-EVALUATION - PT (1) Observed: 04/21/2017 Status: F Source: JUDITH GAP 12:09 PM [facility] REPOSITORY [facility] [address] [place] [address] Fax REEVALUATION / MEDICARE RECERTIFICATION PHYSICAL THERAPY MR#: [id number] Acct: [id number] Name: YONATHAN COOL JR Rep #: [id number] : 1960 56 From: Yobany Thornton PT, Cert. MDT, OCS Referring Dr.: Shaggy Mcgregor MD Status: REG RCR Insurance: allyve [facility] AENA Shaggy Mcgregor MD, It has been my pleasure to treat YONATHAN COOL over the last 10 visits for s/p cervical spinal fusion ,right side weakness. Please see the progress note below for an update on the physical therapy plan of care! Subjective: Patient received new C9 to cont PT with 04/20/17- 06/01/17. Havent seen DR Pratt.will see DR Hayes video conference. Denies parathesia/tingling. Objective/Function: POSTURE: mild foward posture. GAIT: decrease stance right ,mild foward posture. CERVICAL ROM: flexion MOD/SEVERE LOSS,lateral flexion severe loss ,flexion loss. NEURO: denies parathesia/tingling ,reflexes 1/3 C5-6-7,2/3 C5-6-7. MMT: bicep 3+/5,tricep 4-/5,deltoid +/5,wrist 4-/5 right,left 4-/5 de.ltoid. hip flexion 3+/5,quads/hams 4-/5,ankle DF 4-/5. 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 2-3XWK FOR 12 VISITS Goals Goal 1:: Independant with HEP Goal Time Frame: 4-6 Weeks Goal Progress: Progressing Goal 2:: Ambulate with improved quality of gait with increase swing phase ,heel strike during gait cycle. Goal Time Frame: 4-6 Weeks Goal Progress: Progressing Goal 3:: New Goal: Patient increase stength right leg to 4/5 to improve function and gait. Goal 4:: Patient improve dynamic balance to good-/good level/unlevel surfaces Goal Time Frame: 4-6 Weeks Goal Progress: Goal Met Goal 5:: Patient be able to improve ADL'S and selfhygine with min limitations as well ascervical ROM to. mod loss. Goal Time Frame: 4-6 Weeks Goal Progress: Progressing Goal 6:: Patient increase strength right UE 4/5 except shoulder 4-/5 to improve function Anticipated Interventions Patient/Client Instruction: Educate patient on: Condition, Plan of Care For the Purpose of:: To decrease pain, To improve muscle performance and motor function, To improve ability to perform ADL's, To increase tolerance to activity/condition/position, To improve ability of physical actions for home/community/work/leisure, To improve gait and locomotor functions, To increase flexibility/ROM, To improve endurance, To improve balance, To improve safety with gait, To assume or resume ADL's, To improve ability to perform tasks related to life management Therapeutic Exercise to Include: Strength training, Endurance training, Balance training, Postural training, Gait and locomotor training, Active ROM Comment: BLE,CERVICAL ROM gentle For the Purpose of:: To decrease pain, To increase ROM, To improve muscle performance and motor function, To improve ability to perform ADL's, To increase tolerance to activity/condition/position, To improve performance and independence with ADL's, To decrease level of supervision to perform tasks, To improve ability of physical actions for home/community/work/leisure, To improve gait and locomotor functions, To improve health of tissue, To decrease soft tissue restriction, To improve endurance, To improve balance, To improve safety with gait, To assume or resume ADL's, To improve ability to perform tasks related to life management Functional Training to Include: Gait training For the Purpose of:: To decrease pain, To improve muscle performance and motor function, To increase tolerance to activity/condition/position, To improve endurance, To improve safety with gait Please do not hesitate to contact me at [phone] by phone or if you have questions or concerns regarding this new plan of care! Sincerely, Yobany Thornton PT, <Electronically signed by Yobany Thornton PT, Cert. T, OCS> 04/21/17 1209 CC: Xavier Gould MD; Shaggy Mcgregor MD MAGDY Signed For Medicare only, by signing this I certify the plan of care. Physicians Signature Date ALLERGIES ALLERGIES DATE TYPE / CODE NAME / CODE REACTION SEVERITY SOURCE 08/31/2018 Drug fluoxetine Vomiting SV [place] Allergy/416 HCl/[id number](R Community 179854([facility] ED CT) Repository 08/31/2018 Drug lorazepam/I53465 Other [facility] [place] Allergy/416 1460(RXNORM) On License Of [facility] 562674([facility] ED CT) Repository 08/31/2018 Drug morphine/[id number] Rash [facility] [place] Allergy/416 545(RXNORM) On License Of [facility] 933521([facility] ED CT) Repository 08/31/2018 Drug cephalexin/F0060 Nausea/Vom/Diarrh [facility] [place] Allergy/416 69762(RXNORM) [facility] 560452([facility] ED CT) Repository 08/31/2018 Drug pregabalin/F0060 HYPOTENSION [facility] [place] Allergy/416 37963(RXNORM) On License Of [facility] 733798([facility] ED CT) Repository 12/13/2017 DRUG LORAZEPAM Mental Chg [facility] INGREDI/[address] [place] 312354(SNOM Repository ED CT) 03/11/2016 DRUG CEPHALEXIN Vomiting High [facility] INGREDI/[address] [place] 780716(SNOM Repository ED CT) 12/12/2012 DRUG FLUOXETINE HCL GI UPSET [facility] INGREDI/[address] [place] 382180(SNOM Repository ED CT) 09/16/2011 DRUG MORPHINE RASH [facility] INGREDI/[facility] [address] [place] 154680(SNOM Repository ED CT) 05/31/2009 DRUG PREGABALIN [facility] INGREDI/[facility] [address] [place] 470984(SNOM Repository ED CT) ENCOUNTERS ENCOUNTERS ADMIT/DISCHARGE ACCOUNT NUMBER ADMITTING ENCOUNTER LOCATION SOURCE CLASS 09/06/2018/09/06/20 [id number] Ambulatory BMSBuilding: [place] 18 BMS.[facility] Repository 09/05/2018 [id number] Ambulatory [facility] ding:US Repository 08/31/2018 [id number] Ambulatory [facility] ding:CT Repository 08/31/2018 [id number] Ambulatory [facility] ding:MEDOUTP Repository 08/31/2018/08/31/20 [id number] Ambulatory BMSBuilding: [place] 18 BMS.[facility] Repository 08/31/2018/08/31/20 [id number] Ambulatory BMSBuilding: [place] 18 BMS.[facility] Repository 08/25/2018 [id number] Ambulatory [facility] ding:RAD Repository 08/24/2018/08/24/20 [id number] Ambulatory BMSBuilding: [place] 18 BMS.[facility] Repository 08/18/2018/08/18/20 [id number] Ambulatory [address] ding:SDCRoom Repository : AC18 08/15/2018 [id number] Ambulatory BMSBuilding: [facility] Repository 07/27/2018 [id number] Ambulatory BMSBuilding: [place] BMS.[facility] Repository 07/26/2018/07/26/20 [id number] Ambulatory BMSBuilding: [place] 18 BMS[facility] Repository 07/19/2018 [id number] Ambulatory [facility] Hospital ding:ONC Repository 06/14/2018 [id number] Ambulatory BMSBuilding: [place] BMS.CF.[facility] Repository 05/31/2018/05/31/20 [id number] Ambulatory BMSBuilding: [place] 18 BMS.[facility] Repository 04/21/2018 [id number] Ambulatory Building:[facility] Repository 04/04/2018 [id number] Ambulatory Building:[facility] Repository 03/16/2018 [id number] Ambulatory Building:[facility] Repository 03/15/2018 [id number] Ambulatory BMSBuilding: [place] BMS.CF.[facility] Repository 03/08/2018/03/08/20 [id number] Emergency [address] ding:ED Repository 03/03/2018/03/03/20 [id number] Ambulatory [address] ding:PT Repository 03/02/2018/03/02/20 [id number] Ambulatory BMSBuilding: [place] 18 BMS.[facility] Repository 02/15/2018 [id number] Ambulatory [facility] ding:LABSPEC Repository 01/31/2018 [id number] Ambulatory [facility] ding:CT Repository 01/31/2018 [id number] Ambulatory Building:[facility] Repository 01/11/2018 [id number] Ambulatory BMSBuilding: [place] BMS.CF[facility] Repository 01/06/2018 [id number] Ambulatory [facility] Hospital ding:CT Repository 01/04/2018 [id number] Ambulatory Building:[facility] Repository 01/04/2018 [id number] Ambulatory Building:[facility] Repository 12/30/2017 [id number] Ambulatory BMSBuilding: [place] BMS.CF[facility] Repository 12/13/2017 [id number] Ambulatory [facility] Repository 12/13/2017/12/15/19 [id number] Ambulatory [address] Repository 12/13/2017/12/14/19 [id number] Ambulatory [address] Repository 11/30/2017 [id number] Ambulatory Building:[facility] Repository 11/15/2017 [id number] Ambulatory Building:[facility] Repository 11/04/2017/11/08/19 [id number] SHAGGY MCGREGOR Inpatient Building:[address] [place] [address] Encounter Room: [place] [address]Bed: A [facility] Repository 10/19/2017 [id number] Ambulatory Building:[facility] Repository 10/19/2017 [id number] Ambulatory Building:[facility] Repository 10/19/2017 [id number] Ambulatory Building:[facility] Repository 10/19/2017 [id number] Ambulatory Building:[facility] Repository 10/07/2017/10/08/19 [id number] Ambulatory [address] Repository 10/07/2017/10/07/19 [id number] Ambulatory [address] Repository 10/05/2017/10/05/19 [id number] Ambulatory [address] Repository 08/02/2017/08/02/20 [id number] Ambulatory Hiram Chanell 17 [facility] ding:PT Repository PAYERS PAYERS ENCOUNTER GUARANTOR PAYER SUBSCRIBER SOURCE 09/06/2018 YONATHAN COOL Primary YONATHAN Lua Jr[address] Insurance:MEDICARE Jr.: Community [address] [address] PART A BPolicy [id number][place] Number: Repository 86[address]Ybc: 330 [id number] [phone] () Date:2018-09-01 09/06/2018 Secondary YONATHAN Lua Insurance:AETNA LIFE JrSanta: Community INSURANCE [id number] Hospital COMPANYPolicy Number: Repository [id number] Date:3149-68-77[address] [address]RL[place], [place] [address]DA: 09/06/2018 Tertiary NOT GIVENUNK Chanell Insurance:SELF PAY [facility] Number: Effective Repository Date:2018-09-05 09/05/2018 YONATHAN COOL Primary BRANDEN L Chanell Jr[address] Insurance:AETNAPolicy HOBARTDOB: Community [address] Number: [id number], [place] [id number] Repository 90[address]Ypy: (330) Date:7444-17-69YF [phone] () 343072KV MILYROXANN [address]YS: 09/05/2018 Secondary YONATHAN COOL Hiram Insurance:MEDICARE Jr.: Community PART A olicy [id number] Hospital Number: Repository [id number] Date:2018-08-08 09/05/2018 Tertiary NOT GIVENUNK Hiram Insurance:SELF PAY [facility] Number: Effective Repository Date:2018-08-08 08/31/2018 YONATHAN COOL Primary BRANDEN L Chanell Jr[address] Insurance:AETNAPolicy HOBARTDOB: Community [address] Number: [id number], [place] [id number] Repository 280[address]Wbd: (330) Date:8547-77-30HA [phone] () [id number] [address]AH: 08/31/2018 Secondary YONATHAN COOL Chanell Insurance:MEDICARE Jr.: Community PART A olicy [id number] Hospital Number: Repository [id number] Date:2018-08-31 08/31/2018 Tertiary NOT GIVENUNK Hiram Insurance:SELF PAY [facility] Number: Effective Repository Date:2018-08-31 08/31/2018 YONATHAN COOL Primary BRANDEN L Chanell Jr[address] Insurance:AETNAPolicy HOBARTDOB: Community [address] Number: [id number], [place] [id number] Repository [address]Yjf: (330) Date:0292-98-53MC [phone] (HP) 417341KN ROXANN JONES [address]HQ: 08/31/2018 Secondary YONATHAN Whitt MARY Chanell Insurance:MEDICARE Jr.: Community PART A [facility] [id number] Hospital Number: Repository [id number] Date:2018-08-31 08/31/2018 Tertiary NOT GIVENUNK Hiram Insurance:SELF PAY [facility] Number: Effective Repository Date:2018-08-31 08/31/2018 YONATHAN COOL Primary BRANDEN L Chanell Jr[address] Insurance:AETNAPolicy HOBARTDOB: Community [address] Number: [id number], [place] [id number] Repository [address]Ach: (330) Date:4326-50-46JD [phone] (HP) 651540HAROXANN VALERA [address]JG: 08/31/2018 Secondary YONATHAN Whitt MARY Hiram Insurance:MEDICARE Jr.: Community PART A [facility] [id number] Hospital Number: Repository [id number] Date:2018-08-31 08/31/2018 Tertiary NOT GIVENUNK Chanell Insurance:SELF PAY [facility] Number: Effective Repository Date:2018-08-31 08/31/2018 YONATHAN COOL Primary BRANDEN L Hiram Jr[address] Insurance:AETNAPolicy HOBARTDOB: Community [address] Number: [id number], [place] [id number] Repository [address]Vdm: (330) Date:1444-97-67WN [phone] (HP) 236878URROXANN VALERA [address]AW: 08/31/2018 Secondary YONATHAN Whitt MARY Chanell Insurance:MEDICARE Jr.: Community PART A [facility] [id number] Hospital Number: Repository [id number] Date:2018-05-31 08/31/2018 Tertiary NOT GIVENUNK Hiram Insurance:SELF PAY On [facility] Number: Effective Repository Date:2018-08-31 08/25/2018 YONATHAN COOL Primary BRANDEN Blancooster Jr.[address] Insurance:AETNAPolicy HOBARTDOB: Community [address] Number: [id number], [place] [id number] Repository [address]Sst: (330) Date:4052-56-79VW [phone] () 405[place]TDDALLAS, [place] [address]ZQ: 08/25/2018 Secondary YONATHAN Whitt MARY Hiram Insurance:MEDICARE Jr.: Community PART A olicy [id number] Hospital Number: Repository [id number] Date:2018-08-25 08/25/2018 Tertiary NOT GIVENUNK Hiram Insurance:SELF PAY On [facility] Number: Effective Repository Date:2018-08-25 08/24/2018 YONATHAN COOL Primary BRANDEN Blancooster Jr.[address] Insurance:AETNAPolicy HOBARTDOB: Community [address] Number: [id number], [place] [id number] Repository 885[address]Iyj: (330) Date:1671-14-75TL [phone] () 281545QSDALLAS, [place] [address]ZQ: 08/24/2018 Secondary YONATHAN COOL Hiram Insurance:MEDICARE Jr.: Community PART A olicy [id number] Hospital Number: Repository [id number] Date:2018-08-19 08/24/2018 Tertiary NOT GIVENUNK Hiram Insurance:SELF PAY [facility] Number: Effective Repository Date:2018-08-19 08/18/2018 YONATHAN COOL Primary BRANDEN L Hiram Jr[address] Insurance:AETNAPolicy HOBARTDOB: Community [address] Number: [id number], [place] [id number] Repository [address]Jdg: (330) Date:4359-01-53CN [phone] () 437[address]OBD[place], [place] [address]EE: 08/18/2018 Secondary YONATHAN COOL Chanell Insurance:MEDICARE Jr.: Community PART A olicy [id number] Hospital Number: Repository [id number] Date:2018-07-27 08/18/2018 Tertiary NOT GIVENUNK Hiram Insurance:SELF PAY [facility] Hospital Number: Effective Repository Date:2018-07-27 08/15/2018 YONATHAN COOL Primary BRANDEN L Chanell Jr[address] Insurance:AETNAPolicy HOBARTDOB: Community [address] Number: [id number], [place] [id number] Repository 99[address]Xrb: (330) Date:2223-17-83QQ [phone] () 157452ORDALLAS, [place] [address]IY: 08/15/2018 Secondary YONATHAN COOL Chanell Insurance:MEDICARE Jr.: Community PART A olicy [id number] Hospital Number: Repository [id number] Date:2018-07-27 08/15/2018 Tertiary NOT GIVENUNK Hiram Insurance:SELF PAY [facility] Hospital Number: Effective Repository Date:2018-08-15 07/27/2018 YONATHAN COOL Primary NOT GIVENUNK Hiram Jr[address] Insurance:SELF PAY [facility] [place] Number: Effective Repository 73[address]Lix: (330) Date:2018-07-27 [phone] (HP) 07/26/2018 YONATHAN COOL Primary BRANDEN L Chanell Jr.[address] Insurance:AETNAPolicy HOBARTDOB: Community [address] Number: [id number], [place] [id number] Repository [address]15[address]Lmo: (330) Date:2018-01-40TS [phone] () 0555[address]NMDALLAS, [place] [address]PY: 07/26/2018 Secondary YONATHAN G MARY Chanell Insurance:MEDICARE Jr.: Community PART A BPolicy [id number] Hospital Number: Repository [id number] Date:2018-07-18 07/26/2018 Tertiary NOT GIVENUNK Chanell Insurance:SELF PAY [facility] Number: Effective Repository Date:2018-07-25 07/19/2018 YONATHAN COOL Primary BRANDEN L Hiram Jr[address] Insurance:AETNAPolicy HOBARTDOB: Community [address] Number: [id number], [place] [id number] Repository 68[address]Pnz: (330) Date:3626-03-78PY [phone] () 924581ACDALLAS, [place] [address]YX: 07/19/2018 Secondary YONATHAN COOL Chanell Insurance:MEDICARE Jr.: Community PART A [facility] [id number] Hospital Number: Repository [id number] Date:2017-12-29 07/19/2018 Tertiary NOT GIVENUNK Hiram Insurance:SELF PAY [facility] Number: Effective Repository Date:2017-12-29 06/14/2018 YONATHAN COOL Primary BRANDEN L Hiram Jr[address] Insurance:AETNAPolicy HOBARTDOB: Community [address] Number: [id number], [place] [id number] Repository 94140Nce: (330) Date:6329-66-86ER [phone] () 968325EFDALLAS, [place] [address]PK: 06/14/2018 Secondary YONATHAN COOL Hiram Insurance:MEDICARE Jr.: Community PART A olicy [id number] Hospital Number: Repository [id number] Date:2017-12-29 06/14/2018 Tertiary NOT GIVENUNK Chanell Insurance:SELF PAY [facility] Number: Effective Repository Date:2018-06-14 05/31/2018 YONATHAN COOL Primary BRANDEN L Chanell Jr.[address] Insurance:AETNAPolicy HOBARTDOB: Community [address] Number: [id number], [place] [id number] Repository 467[address]Ouv: 330) Date:1677-25-31YF [phone] () 058372SF ROXANN JONES [address]DU: 05/31/2018 Secondary YONATHAN Lua Insurance:MEDICARE Jr.: Community PART A olic [id number] Hospital Number: Repository [id number] Date:2018-03-02 05/31/2018 Tertiary NOT GIVENUNK Chanell Insurance:SELF PAY [facility] Number: Effective Repository Date:2018-05-31 04/21/2018 [id number] Primary Insurance:[facility] YONATHAN Whitt [facility] OB: HEALTH MANAGEMENT HOBARTDOB: [place] [facility] [id number] [facility] [address]PLE [address] LEON Number: APPLE [facility] [address], [id number] [address], Repository [place] [address]Whj: Date:4228-50-23Tqfl [place] [address]Emd: Name:OTHER GOVERN () () 04/04/2018 [id number] Primary Insurance:[facility] YONATHAN Whitt [facility] OB: HEALTH MANAGEMENT HOBARTDOB: [place] [facility] [id number] [facility] [address] Number: APPLE [facility] DR[address], [id number] [address], Repository [place] [address]Aky: Date:5038-94-64Jytu [place] [address]Iji: Name:OTHER GOVERN () () 03/16/2018 [id number] Primary Insurance:[facility] YONATHAN Whitt [facility] OB: HEALTH MANAGEMENT HOBARTDOB: [facility] [id number] [facility] [address] [place] Number: [address] Center [address], [id number] [address], Repository [place] [address]Sam: Date:4362-30-54Ddfw [place] [address]Wxw: Name:OTHER [facility] () () 03/15/2018 YONATHAN COOL Primary BRANDEN Lua Jr.[address] Insurance:AETNAPolicy HOBARTDOB: [facility] DRAPPLE Number: [id number], [place] [id number] Repository [address]Ycr: (569) Date:3391-47-34KJ [phone] () [id number] [place] [address]NJ: 03/15/2018 Secondary YONATHAN COOL Chanell Insurance:MEDICARE Jr.: Community PART A [facility] [id number] Hospital Number: Repository [id number] Date:2017-12-29 03/15/2018 Tertiary NOT GIVENUNK Chanell Insurance:SELF PAY [facility] Hospital Number: Effective Repository Date:2018-03-15 03/08/2018 YONATHAN COOL Primary BRANDEN Lua Jr.[address] Insurance:AETNAPolicy HOBARTDOB: [facility] DRAPPLE Number: [id number], [place] [id number] Repository [address]Sph: (330) Date:2830-13-52KI [phone] () [id number] [place] [address]NO: 03/08/2018 Secondary YONATHAN COOL Chanell Insurance:MEDICARE Jr.: Community PART A [facility] [id number] Hospital Number: Repository [id number] Date:2018-03-08 03/08/2018 Tertiary NOT GIVENUNK Chanell Insurance:SELF PAY [facility] Hospital Number: Effective Repository Date:2018-03-08 03/03/2018 YONATHAN COOL Primary YONATHAN COOL Hiram Jr.[address] Insurance:OB HEALTH Jr.: [facility] DRAPPLE [facility] [id number], [place] Number: Repository [address]Eon: [phone] [id number] [phone] () Date: [address], [place] [address]PH: 03/03/2018 Secondary NOT GIVENUNK Hiram Insurance:SELF PAY [facility] Hospital Number: Effective Repository Date:2017-12-24 03/02/2018 YONATHAN COOL Primary BRANDEN Syed Hiram Jr.[address] Insurance:AETNAPolicy HOBARTDOB: [facility] DRAPPLE Number: [id number], [place] [id number] Repository [address]Bfi: 330) Date:5620-01-70HH [phone] () 194[address], [place] [address]HN: 03/02/2018 Secondary YONATHAN COOL Chanell Insurance:MEDICARE Jr.: Community PART A [facility] [id number] Hospital Number: Repository [id number] Date:2017-12-30 03/02/2018 Tertiary NOT GIVENUNK Hiram Insurance:SELF PAY [facility] Hospital Number: Effective Repository Date:2017-12-30 02/15/2018 YONATHAN COOL Primary BRANDEN Blancooster Jr.[address] Insurance:AETNAPolicy [place]: [facility] DRAPPLE Number: [id number], [place] [id number] Repository [address]Nmq: (330) Date:3827-46-73KL [phone] () 190146RBDALLAS, [place] [address]LT: 02/15/2018 Secondary YONATHAN COOL Chanell Insurance:MEDICARE Jr.: Community PART A [facility] [id number] Hospital Number: Repository [id number] Date:2018-02-15 02/15/2018 Tertiary NOT GIVENUNK Chanell Insurance:SELF PAY [facility] Hospital Number: Effective Repository Date:2018-02-15 01/31/2018 YONATHAN COOL Primary YONATHAN COOL Chanell Jr.[address] Insurance:[facility] Jr.: On License [facility] RIDGE DRAPPLE [facility] [id number], [place] Number: Repository [address]Pqv: 330 [id number] [phone] (HP) Date: [address] [address]CN: 01/31/2018 Secondary NOT GIVENUNK Chanell Insurance:SELF PAY On License [facility] Number: Effective Repository Date:2018-01-24 01/31/2018 [id number] Primary Insurance:[facility] YONATHAN Whitt [facility] OB: HEALTH MANAGEMENT HOBARTDOB: [place] [facility] [id number] [facility] Number: [facility] [address], [id number] DRAPPFORMERLY [facility], Repository [place] [address]Zxc: Date:1425-54-66Wahu [place] [address]Igy: Name:OTHER [facility] () (HP) 01/31/2018 Secondary [facility] Insurance:AETNAPolicy HOBARTDOB: [place] Number: [id number] [facility] [id number] [facility] Date:8621-18-19Japq [address], Repository Name:[facility] [place] [address]Hoa: () 01/11/2018 YONATHAN Whitt Primary BRANDEN Ran Lua APPLE Insurance:AETNAPolicy HOBARTDOB: [facility] DRAPPLE Number: [id number], [place] [id number] Repository [address]Gub: 330) Date:7388-92-48YR [phone] () 816[place], [place] [address]DH: 01/11/2018 Secondary YONATHAN Whitt Hiram Insurance:MEDICARE HOBARTDOB: Community PART A [facility] [id number] Hospital Number: Repository [id number] Date:2017-12-29 01/11/2018 Tertiary NOT GIVENUNK Hiram Insurance:SELF PAY [facility] Number: Effective Repository Date:2018-01-11 01/06/2018 YONATHAN Whitt Primary BRANDEN L Hiram [id number] APPLE Insurance:AETNAPolicy HOBARTDOB: On License [facility] RIDGE DRAPPLE Number: [id number] [facility] [place] [id number] Repository [address]Xjr: (330) Date:4582-23-60WU [phone] (HP) [id number] ROXANN JONES [address]YS: 01/06/2018 Secondary YONATHAN Lua Insurance:MEDICARE HOBARTDOB: Community PART A BPolic [id number] Hospital Number: Repository [id number] Date:2017-12-30 01/06/2018 Tertiary NOT GIVENUNK Hiram Insurance:SELF PAY [facility] Effective Repository Date:2017-12-30 01/04/2018 [id number] Primary Insurance:[facility] YONATHAN Whitt [facility] OB: HEALTH MANAGEMENT HOBARTDOB: [place] [facility] [id number] [facility] [address]PLE [address] LE[address] Number: [facility] Center [address], [id number] [address], Repository [place] [address]Fvw: Date:0721-54-75Yvkb [place] [address]Nmi: Name:OTHER GOVERN () () 01/04/2018 [id number] Primary Insurance:[facility] YONATHAN Whitt [facility] OB: HEALTH MANAGEMENT HOBARTDOB: [place] [facility] [id number] [facility] APPLE RIDGE Number: [facility] Center [address], [id number] [address], Repository [place] [address]Ypy: Date:9390-53-86Mosq [place] [address]Nja: Name:OTHER GOVERN (HP) (HP) 12/30/2017 Yonathan Whitt [place] Primary BRANDEN Lua JR201 [place] Insurance:AETNAPolicy HOBARTDOB: [facility] DrApple Number: [id number] [place] [id number] Repository [address]Ils: (330) Date:1349-39-71TW [phone] (HP) 114983[place], [place] [address]FN: 12/30/2017 Secondary YONATHAN Whitt Chanell Insurance:MEDICARE HOBARTDOB: Community PART A BPolicy [id number] Hospital Number: Repository [id number] Date:2017-12-29 12/30/2017 Tertiary NOT GIVENUNK Chanell Insurance:SELF PAY [facility] Number: Effective Repository Date:2017-12-30 11/30/2017 [id number] Primary Insurance:[facility] YONATHAN Whitt [facility] OB: HEALTH MANAGEMENT HOBARTDOB: [facility] [id number] [facility] APPLE RIDGE Number: [address] Center [address], [id number] [address], Repository [place] [address]Hzl: Date:6598-95-60Gyzh [place] [address]Whb: Name:OTHER GOVERN () () 11/30/2017 Secondary [facility] Insurance:AETNAPolicy [facility] Number: [id number] [facility] [id number] APPLE RIDGE Center Date:2685-80-36Qkzw [address], Repository Name:[facility] [place] [address]Ayc: () 11/15/2017 [id number] Primary Insurance:[facility] YONATHAN Peri [facility] OB: HEALTH MANAGEMENT HOBARTDOB: [place] [facility] [id number] [facility] APPLE RIDGE Number: [address] Center [address], [id number] [address], Repository [place] [address]Xij: Date:1511-03-93Pgcs [place] [address]Mtz: Name:OTHER GOVERN () () 11/04/2017 [id number] Primary Insurance:[facility] YONATHAN Whitt [facility] OB: HEALTH MANAGEMENT HOBARTDOB: [place] [facility] [id number] [facility] [address]PLE R[address]GE Number: [address] [address] [place] Center [address], [id number] [address], Repository [place] [address]Pxd: Date:7928-86-30Pi[place] [address]Pyc: Name:OTHER GOVERN () (HP) 11/04/2017 Secondary SHARATH [facility] Insurance:AETMoni HOBDYESSDOB: University Number: [id number] [facility] [id number] APPLE [facility] Date:3910-36-74Trly [address], Repository Name:[facility] [place] [address]Dqh: (HP) 10/19/2017 [id number] Primary Insurance:[facility] YONATHAN Whitt [facility] OB: HEALTH MANAGEMENT HOBARTDOB: [place] [facility] [id number] [facility] [address] [place] Number: [place] Center [address], [id number] [address], Repository [place] [address]Uqg: Date:1704-17-01Azwt [place] [address]Mqd: Name:OTHER GOVERN () () 10/19/2017 [id number] Primary Insurance:[facility] YONATHAN Whitt [facility] OB: HEALTH MANAGEMENT HOBARTDOB: [place] [facility] [id number] [facility] [address] Number: [address] Center [address], [id number] [address], Repository [place] [address]Cvt: Date:0630-41-96Pjqn [place] [address]Fnt: Name:OTHER GOVERN () (HP) 10/19/2017 [id number] Primary Insurance:[facility] YONATHAN Whitt [facility] OB: HEALTH MANAGEMENT HOBARTDOB: [place] [facility] [id number] [facility] [address] [place] Number: [address] Center [address], [id number] [address], Repository [place] [address]Swu: Date:5185-79-40Tcqj [place] [address]Fyi: Name:OTHER GOVERN (HP) (HP) 08/02/2017 Yonathan Cool Primary Yonathan Cool Hiram JR[address] Apple Insurance:OB HEALTH JRDOB: Community [place] [facility] SOLUTIONSPoly [id number], [place] Number: Repository [address]Fuf: [id number] [phone] Date: [address] () [address] [address]IQ: 08/02/2017 Secondary BRANDEN Lua Insurance:[facility]: Community Number: [id number] Hospital [id number] Repository Date:7984-13-97[address]Ya[place]illiner, [place] [address]VJ: 08/02/2017 Tertiary Yonathan Cool Hiram Insurance:MEDICARE JRDOB: On [facility] PART A BPolicy [id number] Hospital Number: Repository [id number] Date:2011-10-21 08/02/2017 Tertiary NOT GIVENUNK Hiram Insurance:SELF PAY [facility] Number: Effective Repository Date:2017-02-01
== END 2018-08-18 16:21 | disposition home or self-care (01) ==
LOC: SDC 11:31 → AC 11:32
PROVIDERS: Family Provider Family Medicine; PCP Family Medicine; Referring Provider Surgery; Visit Provider Surgery
PROC: (CPT 64721; principal; 2018-08-18 13:25)
DX: G56.01 Carpal tunnel syndrome, right upper limb (principal); I10 Essential (primary) hypertension; F32.9 Major depressive disorder, single episode, unspecified; E83.110 Hereditary hemochromatosis; F17.200 Nicotine dependence, unspecified, uncomplicated; Z86.711 Personal history of pulmonary embolism; Z85.51 Personal history of malignant neoplasm of bladder; Z79.899 Other long term (current) drug therapy; Z87.442 Personal history of urinary calculi
CPT/HCPCS: 64721; 36415; 80048; 82962; 85027; 93005; J7120; A4216

== ENCOUNTER → 2018-08-25 10:49 | Outpatient (CLI) | payer OTHER, MEDICARE, SELFPAY ==
[2018-08-24 13:17] VITALS: BMI 32.8
--- NOTE | 2018-08-25 10:52 | RAD_ITS ---
STUDY: X-RAY - ABDOMEN/PELVIS REASON FOR EXAM: Male, 57 years old. Right flank pain. History of kidney stones. TECHNIQUE: Two AP supine views of the abdomen and pelvis. COMPARISON: Comparison is made with prior examination dated November 19, 2016. FINDINGS: Normal visualized lung bases. There is an unremarkable bowel gas pattern. There is a 3.7 mm calculus in the midportion of the right kidney. A battery pack from a pain stimulator device is seen overlying the left lower quadrant. Normal soft tissue structures. Normal visualized osseous structures. RAD/Abdomen Single View IMPRESSION: Findings suggestive of a 3.7 mm calculus in the midportion of the right kidney. Electronically Signed: Reno Arreola MD at 15:16 EST Tel [phone], Service support ,
--- NOTE | 2018-08-25 12:14 | CT_ITS ---
STUDY: CT ABDOMEN AND PELVIS WITHOUT CONTRAST REASON FOR EXAM: Male, 57 years old. Right flank pain. Bladder cancer. Hematuria. RADIATION DOSAGE (If Supplied By Facility): CTDIvol = ( 19.39 ) mGy, DLP = ( 1012.29 ) mGycm TECHNIQUE: Transaxial images were obtained from the dome of the diaphragm to the symphysis pubis without oral contrast, and without intravenous contrast. Sagittal and coronal images were reconstructed. Individualized dose optimization techniques were used for this CT. COMPARISON: November 19, 2016 FINDINGS: Stable 0.5 cm right middle lobe nodule. The visualized portions of the heart are within normal limits. Liver is enlarged with diffuse fatty infiltration. There are surgical clips in the gallbladder fossa consistent with a prior cholecystectomy. There is mild splenomegaly. Normal pancreas. Normal bilateral adrenal glands. Normal right kidney. Normal left kidney. No stones or hydronephrosis. Normal visualized stomach. Normal small intestine. There are multiple colonic diverticula consistent with diverticulosis. There is non-visualization of the appendix. Normal abdominal aorta. Normal inferior vena cava. Normal retroperitoneum. Normal urinary bladder. There are prostatic calcifications. There is no free fluid in the abdomen or pelvis. There is postoperative change in the right inguinal region. There are diffuse degenerative changes of the visualized lumbar spine. There is stimulator device with lead extending to the thoracic region CT/Abdomen/Pelvis without Cont IMPRESSION: No stones or hydronephrosis. Hepatosplenomegaly. Fatty infiltration of the liver. Electronically Signed: Camron Melendez MD at 12:58 EST , Service support ,
== END ==
PROVIDERS: Family Provider Family Medicine; PCP Family Medicine; Referring Provider Nurse Practitioner Adult Health; Visit Provider Nurse Practitioner Adult Health
DX: C67.9 Malignant neoplasm of bladder, unspecified (principal); N20.0 Calculus of kidney; R10.9 Unspecified abdominal pain
CPT/HCPCS: 74018; 74176

== ENCOUNTER → 2018-08-31 14:53 | Outpatient (CLI) | payer OTHER, MEDICARE, SELFPAY ==
[2018-08-31 13:47] VITALS: BMI 32.8
[2018-08-31 15:19] LABS: Absolute Lymphocyte Count 2.35 X10^3/ul (0.83-4.51); Absolute Neutrophil Count 3.7 X10^3/uL (2.0-7.7); Basophil# 0.03 X10^3/uL; Basophil% 0.4 % (0-1); Eosinophil# 0.14 X10^3/uL; Eosinophils% 2.1 % (0-5); Hemoglobin 16.3 g/dl (13.0-16.5); Lymphocyte # 2.35 X10^3/ul (4.0); Lymphocyte % 34.5 % (19-41); Mean Corp Hgb Conc 35.4 g/gl (32-36); Mean Corpuscular Hgb 31.8 pg (27.0-32.0); Mean Corpuscular Volume 89.7 fL (80-94); Mean Platelet Vol. 9.6 fl (6.2-12.0); Monocyte# 0.54 X10^3/uL; Monocyte% 7.9 % (0-10); Neutrophil # 3.74 X10^3/uL (2.7-7.7); Neutrophil % 54.8 % (47-70); POSITIVE COUNT NO; POSITIVE DIFFERENTIAL NO; POSITIVE MORPHOLOGY NO; Platelet Count 193 K/mm3 (150-450); RBC Distribution Width CV 13.8 % (11.6-14.6); RBC Distribution Width SD 45.4 fl (35.1-43.9); Red Blood Count 5.13 M/mm3 (4.6-6.2); White Blood Count 6.8 K/mm3 (4.4-11.0)
--- OUTSIDE RECORDS SUMMARY | 2018-10-17 20:23 | XMS RPT_ITS ---
:1960 Author Organization OHIP Support Name Relationship Address Phone D Unavailable Unavailable Unavailable SARAH COOLELE Unavailable [address] [address] + [place] [address] D Unavailable Unavailable Unavailable SARAH COOLELE Unavailable [address] + [place] [address] D Unavailable Unavailable Unavailable SARAH COOLELE Unavailable [address] + [place] [address] D Unavailable Unavailable Unavailable LIANA COOL Unavailable [address] + [place] [address] D Unavailable Unavailable Unavailable SARAH COOLELE Unavailable [address] + [place] [address] D Unavailable Unavailable Unavailable SARAH COOLELE Unavailable [address] + [place] [address] D Unavailable Unavailable Unavailable SARAH COOLELE Unavailable [address] + [place] [address] D Unavailable Unavailable Unavailable LIANA COOL Unavailable [address] + [place] [address] D Unavailable Unavailable Unavailable SARAH COOLELE Unavailable [address] + [place] [address] D Unavailable Unavailable Unavailable SARAH COOLELE Unavailable [address] + [place] [address] D Unavailable Unavailable Unavailable SARAH COOLELE Unavailable [address] + [place] [address] D Unavailable Unavailable Unavailable SARAH COOLELE Unavailable [address] + [place] [address] D Unavailable Unavailable Unavailable SARAH COOLELE Unavailable [address] + [place] [address] D Unavailable Unavailable Unavailable MARY, LIANA Unavailable [address] + [place] [address] D Unavailable Unavailable Unavailable MARY, LIANA Unavailable [address] + [place] [address] D Unavailable Unavailable Unavailable MARY, LIANA Unavailable [address] + [place] [address] D Unavailable Unavailable Unavailable MARY, LIANA Unavailable [address] + [place] [address] MARY, LIANA Unavailable Unavailable Unavailable MARY, YONATHAN Unavailable Unavailable Unavailable KARLA, LAVERNE Unavailable Unavailable Unavailable MARY, LIANA Unavailable Unavailable Unavailable MARY, YONATHAN Unavailable Unavailable Unavailable KARLA, LAVERNE Unavailable Unavailable Unavailable MARY, LIANA Unavailable Unavailable Unavailable MARY, YONATHAN Unavailable Unavailable Unavailable KARLA, LAVERNE Unavailable Unavailable Unavailable D Unavailable Unavailable Unavailable MARY, LIANA Unavailable [address] + [place] [address] D Unavailable Unavailable Unavailable MARY, LIANA Unavailable [address] + [place] [address] D Unavailable Unavailable Unavailable MARY, LIANA Unavailable [address] + [place] [address] D Unavailable Unavailable Unavailable MARY, LIANA Unavailable [address] + [place] [address] D Unavailable Unavailable Unavailable MARY, LIANA Unavailable [address] + [place] [address] D Unavailable Unavailable Unavailable MARY, LIANA Unavailable [address] + [place] [address] MARY, LIANA Unavailable Unavailable Unavailable MARY, YONATHAN Unavailable Unavailable Unavailable KARLA, LAVERNE Unavailable Unavailable Unavailable D Unavailable Unavailable Unavailable MARY, LIANA Unavailable [address] + [place] [address] D Unavailable Unavailable Unavailable MARY, LIANA Unavailable [address] + [place] [address] MARY, LIANA Unavailable Unavailable Unavailable MARY, YONATHAN Unavailable Unavailable Unavailable KARLA, LAVENRE Unavailable Unavailable Unavailable MARY, LIANA Unavailable Unavailable Unavailable MARY, YONATHAN Unavailable Unavailable Unavailable KARLA, LAVERNE Unavailable Unavailable Unavailable D Unavailable Unavailable Unavailable MARY, LIANA Unavailable [address] [facility] [address] + [place] [address] MARY, LIANA Unavailable Unavailable Unavailable MARY, YONATHAN Unavailable Unavailable Unavailable KARLA, LAVERNE Unavailable Unavailable Unavailable MARY, LIANA Unavailable Unavailable Unavailable MARY, YONATHAN Unavailable Unavailable Unavailable KARLA, LAVERNE Unavailable Unavailable Unavailable MARY, LIANA Unavailable Unavailable Unavailable MARY, YONATHAN Unavailable Unavailable Unavailable KARLA, LAVERNE Unavailable Unavailable Unavailable MARY, LIANA Unavailable Unavailable Unavailable MARY, YONATHAN Unavailable Unavailable Unavailable KARLA, LAVERNE Unavailable Unavailable Unavailable MARY, LIANA Unavailable Unavailable Unavailable MARY, YONATHAN Unavailable Unavailable Unavailable KARLA, LAVERNE Unavailable Unavailable Unavailable MARY, LIANA Unavailable Unavailable Unavailable MARY, YONATHAN Unavailable Unavailable Unavailable KARLA, LAVERNE Unavailable Unavailable Unavailable MARY, LIANA Unavailable Unavailable Unavailable MARY, YONATHAN Unavailable Unavailable Unavailable KARLA, LAVERNE Unavailable Unavailable Unavailable D Unavailable Unavailable Unavailable D Unavailable Unavailable Unavailable MARY, LIANA Unavailable [address] [facility] [address] + [place] [address] Care Team Providers Name Role Phone MCGREGOR, SAFDAR Admitting Unavailable MCGREGOR, SAFDAR Attending Unavailable RAINAK, XAVIER R Primary Care Unavailable KULDIPTAK, XAVIER R Referring Unavailable CONSULT, GENERAL MEDICINE Consulting Unavailable MCGREGOR, SAFDAR Attending Unavailable SELF, SELF Referring Unavailable KONTAK, XAVIER R Primary Care Unavailable HOFFMANN, RENETTA R Attending Unavailable HAILE, CHRISTOPHER L Referring Unavailable KONTAK, XAVIER R Primary Care Unavailable HOFFMANN, RENETTA R Attending Unavailable HOFFMANN, RENETTA R Referring Unavailable KONTAK, XAVIER R Primary Care Unavailable MCGREGOR, SAFDAR Attending Unavailable SELF, SELF Referring Unavailable KONTAK, XAVIER R Primary Care Unavailable EVETTEIMME, CHRISTOPHER L Attending Unavailable SELF, SELF Referring Unavailable KONTAK, XAVIER R Primary Care Unavailable GRIMME, CHRISTOPHER L Attending Unavailable SELF, SELF Referring Unavailable KONTAK, XAVIER R Primary Care Unavailable MCGREGOR, SAFDAR Attending Unavailable IRAIDA HARRINGTON Referring Unavailable KONTAK, [...] Unavailable KONTAK, XAVIER R Primary Care Unavailable PROMISE, LAPMAN Referring Unavailable PROMISE, LAPMAN Referring Unavailable PROMISE, LAPMAN Referring Unavailable Isckarus, Mansour Attending Unavailable Isckarus, Mansour Referring Unavailable Brown, Aleksandr Primary Care Unavailable Brown, Aleksandr Attending Unavailable Brown, Aleksandr Referring Unavailable Cebul, Ashutosh Attending Unavailable Brown, Aleksandr Referring Unavailable Cebul, Ashutosh Attending Unavailable Brown, Aleksandr Primary Care Unavailable Cebul, Ashutosh Referring Unavailable Cebul, Ashutosh Attending Unavailable Cebul, Ashutosh Referring Unavailable Brown, Aleksandr Primary Care Unavailable Brown, Aleksandr Attending Unavailable Brown, Aleksandr Referring Unavailable Mcgregor, Safdar Attending Unavailable Mcgregor, Safdar Referring Unavailable Kontak, Xavier Primary Care Unavailable Isckarus, Mansour Attending Unavailable Kontak, Xavier Referring Unavailable Kontak, Xavier Primary Care Unavailable Isckarus, Lamonteour Attending Unavailable Kontak, Xavier Referring Unavailable Kontak, Xavier Primary Care Unavailable Isckarus, Mansour Consulting Unavailable Isckarus, Mansour Attending Unavailable Isckarus, Mansour Referring Unavailable Kontak, Xavier Primary Care Unavailable Isckarus, Lamonteour Attending Unavailable Kontak, Xavier Referring Unavailable Kontak, Xavier Primary Care Unavailable Isckarus, Mansour Consulting Unavailable SHIV BRANDT Attending Unavailable SHIV BRANDT Referring Unavailable Kontak, Xavier Primary Care Unavailable SHIV BRANDT Consulting Unavailable Cebul, Ashutosh Attending Unavailable Mateo Mcadams Attending Unavailable Pema, Mateo Referring Unavailable Brown, Aleksandr Primary Care Unavailable LindaJose Attending Unavailable Kontak, Xavier Primary Care Unavailable LindaJose Referring Unavailable Brown, Aleksandr Attending Unavailable Brown, Aleksandr Referring Unavailable Brown, Aleksandr Primary Care Unavailable Edgar Xiong Attending Unavailable Isckarus, Mansour Attending Unavailable Kontak, Xavier Referring Unavailable Kontak, Xavier Primary Care Unavailable Isckarus, Mansour Consulting Unavailable Brown, Aleksandr Attending Unavailable Brown, Aleksandr Referring Unavailable Kontak, Xavier Primary Care Unavailable Isckarus, Mansour Attending Unavailable Kuldiptaroger, Xavier Referring Unavailable Kontak, Xavier Primary Care Unavailable Brunakarus, Mansour Consulting Unavailable Urmila, Ashutosh Attending Unavailable Aleksandr Duarte Referring Unavailable Bhakti Bagley Attending Unavailable Cebul, Ashutosh Attending Unavailable Cebul, Ashutosh Referring Unavailable Brown, Aleksandr Primary Care Unavailable Dedra Delgado PA-C Attending Unavailable Aleksandr Duarte Referring Unavailable Flynn Lundbergl Attending Unavailable Marciel, Ashutosh Referring Unavailable Wendy Sanderson Attending Unavailable Brown, Aleksandr Primary Care Unavailable Wendy Sanderson Referring Unavailable Kontak, Xavier Primary Care Unavailable Shaggy Mcgregor Attending Unavailable PROBLEMS PROBLEMS DATE TYPE CONDITION / CODE ATTENDING STATUS SOURCE 09/06/2018 Unknown Z23 - Encounter for Aleksandr Duarte Active [place] immunization / Community Z23(ICD-10) Hospital Repository 09/06/2018 Unknown M65.9 - Synovitis Aleksandr Duarte Active [place] and tenosynovitis, Community unspecified / Hospital M65.9(ICD-10) Repository 08/31/2018 Unknown R10.9 - Unspecified Cebul, Ashutosh Active [place] abdominal pain / Community R10.9(ICD-10) Hospital Repository 08/25/2018 Unknown C67.9 - Malignant Kin, Active [place] neoplasm of bladder, Wendy Graham Community unspecified / Hospital C67.9(ICD-10) Repository 09/09/2018 Unknown G56.01 - Carpal Cebul, Ashutosh Active [place] tunnel syndrome, Community right upper limb / Hospital G56.01(ICD-10) Repository 08/18/2018 Unknown G89.18 - Other acute Cebul, Ashutosh Active [facility] postprocedural pain Community / G89.18(ICD-10) Hospital Repository 08/25/2018 Unknown I10 - Essential Tamika, Pax Active [facility] (primary) Community hypertension / Hospital I10(ICD-10) Repository 07/26/2018 Unknown G56.03 - Carpal Cebul, Ashutosh Active [place] tunnel syndrome, Community bilateral upper Hospital limbs / Repository G56.03(ICD-10) 08/08/2018 Unknown Z45.2 - Encounter Isckarus, Active [place] for adjustment and [place] Community management of Hospital vascular access Repository device / Z45.2(ICD-10) 05/31/2018 Unknown E11.9 - Type 2 Aleksandr Duarte Active [place] diabetes mellitus [facility] without Hospital complications / Repository E11.9(ICD-10) 04/21/2018 Admitting New Patient / HALIE Active [place] diagnosis [id number]() [facility]OR[facility] Repository 04/04/2018 Admitting Spinal stenosis, ALINA, HATTIE Yu Active [place] diagnosis cervical region / University M48.02(ICD-10) [facility] Repository 04/04/2018 Admitting Pain in right arm / ALINA, HATTIE Yu Active [place] diagnosis M79.601(ICD-10) [facility] Repository 04/04/2018 Admitting Pain in left arm / ALINA, HATTIE Yu Active [place] diagnosis M79.602(ICD-10) [facility] Repository 04/04/2018 Admitting Carpal tunnel ALINA, HATTIE Yu Active [facility] diagnosis syndrome, right University upper limb / [facility] G56.01(ICD-10) Center Repository 04/04/2018 Admitting Carpal tunnel ALINA, HATTIE Yu Active [facility] diagnosis syndrome, left upper University limb / [facility] G56.02(ICD-10) Center Repository 03/15/2018 Unknown E83.119 - Isckarus, Active [facility] Hemochromatosis, [facility] unspecified / Hospital E83.119(ICD-10) Repository 05/04/2018 Unknown R53.1 - Weakness / Mcgregor, Safdar Active [place] R53.1(ICD-10) [facility] Hospital Repository 03/02/2018 Unknown E11.8 - Type 2 Aleksandr Duarte Active [place] diabetes mellitus [facility] with unspecified Hospital complications / Repository E11.8(ICD-10) 01/31/2018 Unknown Z98.1 - Arthrodesis SHIV BRANDT Active [place] status / Community Z98.1(ICD-10) Hospital Repository 01/31/2018 Unknown Z72.0 - Tobacco use SHIV BRANDT Active [place] / Z72.0(ICD-10) [facility] Hospital Repository 01/31/2018 Unknown M54.12 - SHIV BRANDT Active [place] Radiculopathy, [facility] cervical region / Hospital M54.12(ICD-10) Repository 01/06/2018 Unknown Z85.51 - Personal Isckarus, Active [place] history of malignant [facility] neoplasm of bladder Hospital / Z85.51(ICD-10) Repository 01/06/2018 Unknown F17.200 - Nicotine Isckarus, Active [place] dependence, [facility] unspecified, Hospital uncomplicated / Repository F17.200(ICD-10) 01/04/2018 Admitting Radiculopathy, SHAGGY MCGREGOR Active [facility] diagnosis cervical region / University M54.12(ICD-10) [facility] Repository 01/25/2017 Admitting Tobacco use / FELIX MCGREGORDAR Active [facility] diagnosis Z72.0(ICD-10) [facility] Repository 07/11/2015 Active Hereditary NA Active [place] hemochromatosis / Clinic Main E83.110(ICD-10) [place] Repository 12/13/2017 Active Unknown / NA Active [place] UNK(Unknown) [facility] Main [place] Repository 11/30/2017 Admitting Surgical Follow-up / GRIMME, [facility] diagnosis 104() [facility] Repository 11/15/2017 Admitting Infection following GRIMME, [facility] diagnosis a procedure, initial [facility] encounter / [facility] T81.4XXA(ICD-10) Center Repository 11/04/2017 Admitting Other cervical disc FELIX MCGREGORDAR Active [facility] diagnosis [facility], University unspecified cervical [facility] Medical region / Center M50.20(ICD-10) Repository 10/19/2017 Admitting Encounter for other HOFFMANN, Active [facility] diagnosis preprocedural RENETTA R University examination / [facility] Medical Z01.818(ICD-10) Center Repository 10/19/2017 Admitting Essential (primary) HOFFMANN, [facility] diagnosis hypertension / RENETTA R University I10(ICD-10) [facility] Repository 10/19/2017 Admitting Type 2 diabetes HOFFMANN, Active [facility] diagnosis mellitus without RENETTA R University complications (HCC) [facility] Medical / E11.9(ICD-10) Center Repository 10/19/2017 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, [facility]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 (HCC) RENETTA R University / Z79.4(ICD-10) [facility] Repository 10/19/2017 Admitting Hereditary HOFFMANN, Active [facility] diagnosis hemochromatosis [facility] (HCC) / [facility] E83.110(ICD-10) Center Repository 10/19/2017 Admitting Personal history of HOFFMANN, Active [facility] diagnosis pulmonary embolism / [facility] Z86.711(ICD-10) [facility] Repository 01/19/2017 Admitting Arthrodesis status / HOFFMANN, Active [facility] diagnosis Z98.1(ICD-10) [facility] Repository 2016 Admitting Nicotine dependence, HOFFMANN, Active [facility] diagnosis cigarettes, [facility] uncomplicated / [facility] F17.210(ICD-10) Center Repository 10/19/2017 Admitting Follow-up / 145() SHAGGY MCGREGOR Active [facility] diagnosis [facility] Repository 10/22/2017 Unknown M62.81 - Muscle Shaggy Mcgregor Active [place] weakness Community (generalized) / Hospital M62.81(ICD-10) Repository PROCEDURES PROCEDURES No Procedure Records FoundRESULTS RESULTS INTERNAL MEDICINE Observed: 09/06/2018 Status: F Source: [place] OFFICE VISIT 11:48 AM [facility] REPOSITORY [facility] [address] [place] [address] [place] [address] OFFICE VISIT Date of Service: 09/06/18 MR#: [id number] Acct: [id number] Name: MARYYONATHAN Jr. Rep #: [id number] : 1960 Provider: Aleskandr Duarte DO Age/Sex: 57/M Location: [facility] Status: Signed Intake Vital Signs09/06/18 Body Mass [...] PRN #30 tab 09/06/18 [Rx Confirmed 09/06/18] REPLACED BY [facility] Medical History Carpal tunnel syndrome on both [...] Route Admin Location Lot Number Expiration DateNDC Clinical Advisor 20 mg Intra-Articularleft thumb [id number] 05/21/20 5486-2509-11 [facility] Assessment AND Plan Problems 1. Tenosynovitis [...] right-sided abdominal pain. 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 [address] [place] [address] OFFICE VISIT Date of Service: 08/31/18 MR#: [id number] Acct: [id number] Name: MARYYONATHAN Peri De La Cruz Rep #: [id number] : 1960 Provider: Ashutosh Kearns MD Age/Sex: 57/M Location: [facility] Status: Signed Intake Vital Signs08/31/18 Body Mass Index (BMI) 32.8 08/31/18 Height 6 ft 08/31/18 Weight: 246 lb Intake Visit Reasons: poss incarcerated hernia Chief Complaint: abdominal swelling and back pain Radiology Asst Required: No Is patient in pain?: No [...] PRN #30 tab 07/27/18 [Rx Confirmed 08/31/18] REPLACED BY [facility] Medical History Carpal tunnel syndrome on both [...] CT scan without contrast performed at the [facility]. Postoperative changes in the right inguinal area [...] Cosigner Signature: Date (if applicable) CC: Aleksandr Duarte, DO ABDOMEN WITH IV Observed: 08/31/2018 Status: F Source: [place] CONTRAST 3:23 PM [facility] REPOSITORY [facility] [address] [place] [address] Abdomen WITH IV Contrast MR#: [id number] Acct: [id number] Name: YONATHAN COOL Jr. Rep #: [id number] : 1960 M 57 From: Francine Mace MD PCP: Aleksandr Duarte, Status: REG CLI Study: Abdomen WITH IV Contrast Date of Exam: 08/31/18 Exam# [id number] Ordering Dr: Ashutosh Kearsn MD STUDY: CT ABDOMEN WITH CONTRAST REASON [...] The appendix is not included in the [id number]. Normal abdominal aorta. Normal inferior vena cava. [...] CC: Aleksandr Duarte DO; Ashutosh Kearns MD Commissioner Conservation Of Resources: Signed CBC W/DIFF, AUTOMATED Collected: 08/31/2018 Status: F Source: [place] 3:00 PM [facility] REPOSITORY TYPE CODE TESTS RESULT OUT [...] Lymph 2.35 Performed By: #### L100.0100 #### [facility] [address] [place], [address] BASIC METABOLIC Collected: 08/31/2018 Status: F Source: [place] PROFILE (BMP) 3:00 PM [facility] REPOSITORY TYPE CODE TESTS RESULT OUT [...] 5 GAP Performed By: #### L500.2500 #### [facility] [address] [place], [address] INTERNAL MEDICINE Observed: 08/31/2018 Status: F Source: [place] OFFICE VISIT 1:30 PM [facility] REPOSITORY [facility] [address] [place] [address] OFFICE VISIT Date of Service: 08/31/18 MR#: [id number] Acct: [id number] Name: YONATHAN COOL Jr. Rep #: [id number] : 1960 Provider: Aleksandr Duarte DO Age/Sex: 57/M Location: [facility] Status: Signed Intake Vital Signs08/31/18 Body Mass [...] as soon as possible surgical referral to [facility]. Coding Level of Care Code Off vis,est,level 3 Diagnoses Abdominal pain of unknown cause R10.9 08/31/18 1330 <Electronically signed by Aleksandr Duarte DO> Date Aleksandr Duarte DO Cosigner Signature: Date (if applicable) CC: SURGERY VISIT REPORT Observed: 08/25/2018 Status: F Source: [place] 3:26 PM [facility] REPOSITORY [facility] [address] [place] [address] [address] [place] [address] OFFICE VISIT Date of Service: 08/24/18 MR#: [id number] Acct: [id number] Name: YONATHAN COOL Jr. Rep #: [id number] : 1960 Provider: Dedra Delgado PA-C Age/Sex: 57/M Location: [facility] Status: Signed Intake Intake Visit Reasons: F/U [...] ABDOMEN/PELVIS WITHOUT Observed: 08/25/2018 Status: F Source: [place] CONT 12:14 PM [facility] REPOSITORY [facility] [address] [place] [address] Abdomen/Pelvis without Cont MR#: [id number] Acct: [id number] Name: YONATHAN COOL Jr. Rep #: [id number] : 1960 M 57 From: Camron Melendez MD PCP: Aleksandr Duarte, DO Status: REG CLI Study: Abdomen/Pelvis without Cont Date of Exam: 08/25/18 Exam# [id number] Ordering Dr: Wendy Sanderson CLINICAL ACCOUNT MANAGER-C STUDY: CT ABDOMEN AND PELVIS WITHOUT CONTRAST [...] 12:58 EST , Service support , CC: Aleksandr Duarte DO; Wendy Sanderson NP Commissioner Conservation Of Resources: Signed ABDOMEN SINGLE VIEW Observed: 08/25/2018 Status: F Source: [place] 10:52 AM [facility] REPOSITORY [facility] [address] [place] [address] Abdomen Single View MR#: [id number] Acct: [id number] Name: YONATHAN COOL Jr. Rep #: [id number] : 1960 M 57 From: Reno Arreola MD PCP: Aleksandr Duarte DO Status: REG CLI Study: Abdomen Single View Date of Exam: 08/25/18 Exam# [id number] Ordering Dr: Wendy Sanderson CLINICAL ACCOUNT MANAGER-C STUDY: X-RAY - ABDOMEN/PELVIS REASON FOR EXAM: [...] Reno Arreola MD at 15:16 EST Tel [phone], Service support , CC: Aleksandr Duarte DO; Wendy Sanderson NP Commissioner Conservation Of Resources: Signed OPERATIVE REPORT Observed: 08/19/2018 Status: F Source: [place] 1:39 PM [facility] REPOSITORY [facility] Medical Records Department [address] [place] [address] Operative Report 08/18/18 1514 MR#: [id number] Acct: [id number] Name: YONATHAN COOL Jr. Rep #: [id number] : 1960 57 From: Ashutosh Kearns MD PCP: Aleksandr Duarte, DO Status: DEP [facility] Y Location: [facility] Problem List (1) Carpal tunnel syndrome on both sides Status: Chronic Report of Operation Date of Procedure: 08/18/18 Pre-Operative Diagnosis: Right carpal tunnel syndrome Post-Operative Diagnosis: Same Surgery/Procedure Performed:: Right carpal tunnel release Description of Surgical Findings:: Timeout and informed consent was obtained. 57-year-old gent was examined from placement table underwent Linda block anesthesia right upper extremity. Tourniquet of [...] Anesthesia:: Block,Regional, Local Anesthesiologist: Darell Higuera 08/19/18 8479 <Electronically signed by Ashutosh Kearns MD> Date Ashutosh Kearns MD CC: Aleksandr Duarte DO; Ashutosh Kearns MD Signed DISCHARGE INSTRUCTION Observed: 08/18/2018 Status: F Source: [place] 2:32 PM [facility] REPOSITORY [facility] Medical Records Department [address] [place] [address] Instructions for Home/Discharge Instructions 08/18/18 1324 MR#: [id number] Acct: [id number] Name: YONATHAN COOL Jr. Rep #: [id number] : 1960 57 From: Ashutosh Kearns MD PCP: Aleksandr Duarte DO Status: REG SDC Discharge Diet: Light diet - advance as [...] Follow Up With: Ashutosh Kearns MD - [phone] When: Call to make an appointment to be seen on Wednesday08/18/18 1432 <Electronically signed by Ashutosh Kearns MD> Date Ashutosh Kearns MD CC: Aleksandr Duarte, BEDSIDE GLUCOSE Collected: 08/18/2018 Status: F Source: [place] 11:47 AM [facility] REPOSITORY TYPE CODE TESTS RESULT OUT OF RANGE REFERENCE UNITS LAB L501.080 70-110 mg/dL Normal BEDSIDE GLU 105 Result Comment: MANAGEMENT OF PATIENT CARE PER NURSING PROTOCOL Performed By: #### L501.080 #### [facility] Point of Care [address] [place], [place] [address] CBC-COMPLETE BLOOD CNT Collected: 08/15/2018 Status: F Source: [place] NO DIFF 1:04 PM [facility] REPOSITORY Order Comment: Send Results To: EBUL Reason for Laboratory Test PREOP TYPE CODE [...] MPV 10.0 Performed By: #### L100.0500 #### [facility] [address] [place], [address] BASIC METABOLIC Collected: 08/15/2018 Status: F Source: [place] PROFILE (BMP) 1:04 PM [facility] REPOSITORY Order Comment: Send Results To: MERCEDES Reason for Laboratory Test PREOP TYPE CODE [...] GAP 12 Performed By: #### L500.2500 #### [facility] [address] [place], [address] SURGERY VISIT REPORT Observed: 07/26/2018 Status: F Source: [place] 2:49 PM [facility] REPOSITORY [facility] [address] [place] [address] OFFICE VISIT Date of Service: 07/26/18 MR#: [id number] Acct: [id number] Name: YONATHAN COOL Jr. Rep #: [id number] : 1960 Provider: Ashutosh Kearns MD Age/Sex: 57/M Location: [facility] Status: Signed Intake Vital Signs07/26/18 Height 6 ft 07/26/18 Weight: 244 lb Intake Visit Reasons: Carpal Tunnel/Patient will bring report from [facility] Chief Complaint: 3 MO FU Radiology Asst Required: No Is patient in pain?: No [...] mg PO QDAY 03/02/18 [History Confirmed 07/26/18] REPLACED BY [facility] Medical History Carpal tunnel syndrome on both [...] Compensation to help. He went down to [facility]. On April 04, 2018 he had nerve [...] comfortable Nutritional Appearance: obese Orientation: alert, awake HENMT Mouth: other (Very heavy staining of carla-aural [...] similar. Tinel's positive on the right. Diminished store specialist strength noted on the right Bilateral radial [...] right carpal tunnel release performed under a linda block anesthesia. He is aware of the [...] tunnel syndrome on both sides G56.03 07/26/18 2275 <Electronically signed by Ashutosh Kearns MD> Date Ashutosh Kearns MD Cosigner Signature: Date (if applicable) CC: Aleksandr Duarte DO ONCOLOGY VISIT REPORT Observed: 06/14/2018 Status: F Source: [place] 1:58 PM [facility] REPOSITORY [facility] [address] OFFICE VISIT Date of Service: 06/14/18 1305 MR#: [id number] Acct: [id number] Name: YONATHAN COOL Jr. Rep #: [id number] : 1960 From: Brenden Sauceda MD Age/Sex: 57/M Location: D Status: Signed - Problem List (1) Hemochromatosis [...] under the care of Dr. Virgen at [facility] with control of his iron overload. He transferred his care to [facility] as of December 2017. His medical history [...] lung cancer with annual noncontrast CT, screening 2018 negative, next due December 2018. Not motivated [...] MD PROGRESS Observed: 06/09/2018 Status: COMPLETED Source: [place] 11:01 AM [facility] REPOSITORY HNO ID: [id number] Author: Nelly Roblero Service: (none) Author Type: Dry Cleaner Type: Progress Notes Filed: 06/09/2018 11:02 AM Note Text: Yonathan called he has transferred care to Dr.Douglas Duarte. Nelly Roblero MA CNPN Observed: 06/09/2018 Status: COMPLETED Source: [place] 12:00 AM [facility] REPOSITORY Telephone (JAMIEWADIMITRI) YONATHAN COOL ([id number]) 1960 M Date Time Provider Department 06/09/18 BRYN GOULD During your visit today, we recorded the following information about you: Katherine Dior Ma 06/09/2018 2:48 PM Addendum Type of letter/form/fax request - Labs (CBC and Ferritin) 06/08/18 Form received from [facility] and placed on MD desk () for review Route to [place] when form completed for processing Katherine Dior Ma Allergies As of Date: 06/09/2018 Noted Allergy Reaction KEFLEX (CEPHALEXIN) 03/11/2016 11 - Vomiting ATIVAN (LORAZEPAM) 12/13/2017 1 - Mental Status Change LYRICA (PREGABALIN) 05/31/2009 Comments: Pt. passed out and BP drop MORPHINE 09/16/2011 2 - Rash PROZAC (FLUOXETINE HCL) 12/12/2012 8 - GI Upset Date Reviewed: 12/13/2017 Reviewed by: Annetta TreadwellRn) LINH Gupta - Fully Assessed Reason for Visit: Outside Lab Results [753] Cmt: [facility] CBC 06/08/18 Prescriptions as of 06/09/2018 Sig: [...] 06/09/18 FERRITIN Collected: 06/08/2018 Status: F Source: [place] 1:14 PM [facility] REPOSITORY Order Comment: PLEASE CALL KEMI STAT WITH RESULTS @311[facility] 6 K TYPE CODE TESTS RESULT OUT OF RANGE REFERENCE UNITS LAB L503.6550 26-388 ng/mL Normal FERRITIN 46 Performed By: #### L503.6550 #### [facility] [address] [place], [address] CBC W/DIFF, AUTOMATED Collected: 06/08/2018 Status: F Source: [place] 1:13 PM [facility] REPOSITORY Order Comment: Reason for Laboratory [...] Lymph 2.22 Performed By: #### L100.0100 #### [facility] [address] [place], [address] #### L3300.0700 #### [facility] (refer to report for specific site) refer to report for address and phone number AFP, TUMOR MARKER Collected: 06/08/2018 Status: F Source: [place] 1:13 PM [facility] REPOSITORY Order Comment: Reason for Laboratory Test . Is Patient ? N TYPE CODE TESTS RESULT OUT OF RANGE REFERENCE UNITS LAB L3300.0700 0.0-8.3 ng/mL Normal AFP TUMOR 2.0 2253 Result Comment: expressor software ECLIA methodology Performed at: [facility] Lab[address] [id number] Environment Friendly Landscape Designer: Jose Auguste PhD, Phone: [phone] Performed By: #### L100.0100 #### [facility] [address] [place], [place], [address] #### L3300.0700 #### [facility] (refer to report for specific site) refer to report for address and phone number HEMOGLOBIN A1C Collected: 06/08/2018 Status: F Source: [place] 1:13 PM [facility] REPOSITORY TYPE CODE TESTS RESULT OUT OF RANGE REFERENCE UNITS LAB L501.9985 4.2-6.3 % Normal HGB A1C 5.3 Performed By: #### L501.9985 #### [facility] [address] [place], [place], [address] PROGRESS Observed: 06/03/2018 Status: COMPLETED Source: [place] 2:45 PM [facility] REPOSITORY HNO ID: [id number] Author: Nelly Roblero Service: (none) Author Type: Dry Cleaner Type: Progress Notes Filed: 06/09/2018 11:02 AM Note Text: I have attempted to contact this patient by phone to return their call, schedule an appointment, discuss lab results, etc. Left message to call back. Nelly Roblero MA INTERNAL MEDICINE Observed: 05/31/2018 Status: F Source: [place] OFFICE VISIT 5:03 PM [facility] REPOSITORY [facility] [place] [address] [place] [address] OFFICE VISIT Date of Service: 05/31/18 MR#: [id number] Acct: [id number] Name: YONATHAN COOL Jr. Rep #: [id number] : 1960 Provider: Aleksandr Duarte DO Age/Sex: 57/M Location: [facility] Status: Signed Intake Vital Signs05/31/18 Height 6 [...] was borderline high. 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 transportation intermediary insulin use: with half-way use Diabetes mellitus type: type 2 Status post cervical spinal fusion Z98.1 Hereditary hemochromatosis E83.110 Hemochromatosis type: hereditary Tenosynovitis of left hand M65.9 Time Spent (min) 30 05/31/18 1703 <Electronically signed by Aleksandr Duarte DO> Date Aleksandr Duarte DO Cosigner Signature: Date (if applicable) CC: PROGRESS Observed: 05/30/2018 Status: COMPLETED Source: [place] 10:14 AM [facility] REPOSITORY HNO ID: [id number] Author: Nelly Roblero Service: (none) Author Type: Dry Cleaner Type: Progress Notes Filed: 06/09/2018 11:02 AM [...] MA CNPTOUTREACH Observed: 05/30/2018 Status: COMPLETED Source: [place] 12:00 AM [facility] REPOSITORY Patient Outreach (FAMPWS) YONATHAN COOL ([id number]) 1960 M Date Time Provider Department 05/30/18 NELLY ROBLERO) JOHNPWS During your visit today, we recorded the following information about you: Nelly Roblero MA 06/09/2018 11:02 AM Signed PHMA TEAMLET DOCUMENTATION Provider Action/FYI: Patient needs [...] Gupta - Fully Assessed Reason for Visit: [facility]/Care Gap Outreach [8966] Primary Visit Diagnosis:Type 2 diabetes mellitus without [...] VISIT REPORT Observed: 03/15/2018 Status: F Source: [place] 3:03 PM [facility] REPOSITORY [facility] [place] [address] OFFICE VISIT Date of Service: 03/15/18 1316 MR#: [id number] Acct: [id number] Name: YONATHAN COOL Jr. Rep #: [id number] : 1960 From: Brenden Sauceda MD Age/Sex: [...] under the care of Dr. Virgen at [facility] with control of his iron overload. He transferred his care to [facility] as of December 2017. His medical history [...] Xavier Gould Referring Provider: Xavier Gould 03/15/18 1503 <Electronically signed by Brenden Sauceda MD> Date Brenden Sauceda MD Cosigner Signature: Date (if applicable) CC: COMPREHENSIVE METABOLIC Collected: 03/08/2018 Status: F Source: [place] JARRELL 2:30 PM [facility] REPOSITORY TYPE CODE TESTS RESULT OUT [...] 4 Performed By: #### L500.4050, L501.9985 #### [facility] [address] [place], [address] HEMOGLOBIN A1C Collected: 03/08/2018 Status: F Source: [place] 2:30 PM [facility] REPOSITORY TYPE CODE TESTS RESULT OUT OF RANGE REFERENCE UNITS LAB L501.9985 4.2-6.3 % Normal HGB A1C 5.6 Performed By: #### L500.4050, L501.9985 #### [facility] [address] [place], [address] CBC W/DIFF, AUTOMATED Collected: 03/08/2018 Status: F Source: [place] 2:25 PM [facility] REPOSITORY Order Comment: Reason for Laboratory [...] Performed By: #### L100.0100, L503.6030, L503.6550 #### [facility] [address] [facility] [id number] IRON+IRON BINDING Collected: 03/08/2018 Status: F Source: [facility] 2:25 PM [facility] REPOSITORY Order Comment: Reason for Laboratory Test . TYPE CODE TESTS RESULT OUT OF RANGE REFERENCE UNITS LAB L503.6075 250-450 ug/dL TIBC Normal 339 LAB L503.6150 65-175 ug/dL Low IRON 35 LAB L503.6250 15.0-55.0 % Low IRON SATURATION 10.3 Performed By: #### L100.0100, L503.6030, L503.6550 #### [facility] [address] [place], [place], [address] FERRITIN Collected: 03/08/2018 Status: F Source: [place] 2:25 PM [facility] REPOSITORY Order Comment: Reason for Laboratory Test . TYPE CODE TESTS RESULT OUT OF REFERENCE UNITS RANGE LAB L503.6550 26-388 ng/mL Low FERRITIN 16 Performed By: #### L100.0100, L503.6030, L503.6550 #### [facility] [address] [place], [address] INTERNAL MEDICINE Observed: 03/02/2018 Status: F Source: [place] OFFICE VISIT 3:45 PM [facility] REPOSITORY [facility] [address] [place] [address] OFFICE VISIT Date of Service: 03/02/18 MR#: [id number] Acct: [id number] Name: YONATHAN COOL Jr. Rep #: [id number] : 1960 Provider: Aleksandr Duarte DO Age/Sex: 57/M Location: [facility] Status: Signed Intake Vital Signs03/02/18 Height 6 [...] the care of a spinal surgeon in [place] he says he has come a long [...] complication status: with unspecified complications Diabetes mellitus half-way insulin use: with ocean transportation intermediary use Diabetes mellitus type: type 2 History of pulmonary embolism Z86.711 03/02/18 1545 <Electronically signed by Aleksandr Duarte DO> Date Aleksandr Duarte DO Cosigner Signature: Date (if applicable) CC: CYTOLOGY, BODY FLUID / Collected: 02/15/2018 Status: F Source: [place] CSF 3:45 PM [facility] REPOSITORY Order Comment: Specimen Source: URINE TYPE CODE TESTS RESULT OUT OF RANGE REFERENCE UNITS LAB L350.1000 SEE Normal PATHOLOGY CYTOLOGY,BF REPORT /CSF Result Comment: Specimen submitted to Anatomical Pathology Department for testing. Performed By: #### L350.1000 #### [facility] [address] [place], [address] MISCELLANEOUS LAB Collected: 02/15/2018 Status: F Source: [place] PROCEDURE 3:45 PM [facility] REPOSITORY Order Comment: Test(s) Ordered: FISH [id number] TYPE CODE TESTS RESULT OUT OF RANGE REFERENCE UNITS LAB L801.1541 Normal [facility] LAB TEST Result Comment: Scanned image report available in EMR Performed By: #### L801.1541 #### [facility] [address] [place], [address] CYTOSPIN ON FLUID Observed: 02/15/2018 Status: F Source: [place] 12:00 AM [facility] REPOSITORY Patient: YONATHAN COOL Jr. : 1960 (57/M) Acct Num: [id number] Phys: Linda BENTLEY,Jose Fortune Unit Num: [id number] Loc: [facility] Specimen: [id number] Received: 02/15/18 - 1545 Spec Type: CYSPIN FL TISSUES TISSUES: Urine CYTOLOGY GROSS Received is 25 ml of cloudy yellow fluid labeled with the patient's name and and designated per the requisition as urine. Submitted for cytology preparation. / 02/16/18 TC:5 CPT: 14085 CYTOLOGY STUDY Slides are reviewed. The specimen predominantly consists of benign squamous cells and amorphous acellular material. DIAGNOSIS CYTOLOGY Urine for cytology (cytospin): Negative for malignant cells. SJ:carlotta 02/17/18 HEADER OPERATION: Not noted PRE-OP DIAGNOSIS: C67.9 TISSUE SUBMITTED: Urine for cytology Signed Jason Murrell 02/17/18 <signature on file> Performed By: #### PCYSPIN #### [facility] [address] [facility] [place], [address] SPINE CERVICAL Observed: 01/31/2018 Status: F Source: [place] WITHOUT CONTRAS 2:48 PM [facility] REPOSITORY [facility] [address] [facility] [place] [address] Spine Cervical without Contras MR#: [id number] Acct: [id number] Name: YONATHAN COOL Peri Camp. Rep #: [id number] : 1960 M 57 From: Camron Melendez MD PCP: Xavier Gould MD Status: REG CLI Study: Spine Cervical without Contras Date of Exam: 01/31/18 Exam# [id number] Ordering Dr: IRAIDA HARRINGTON STUDY: CT CERVICAL [...] , CC: IRAIDA HARRINGTON; Xavier Gould MD Commissioner Conservation Of Resources: Signed ONCOLOGY VISIT REPORT Observed: 01/11/2018 Status: F Source: [place] 11:59 AM [facility] REPOSITORY [facility] [place] [address] OFFICE VISIT Date of Service: 01/11/18 1131 MR#: [id number] Acct: [id number] Name: YONATHAN COOL Rep #: [id number] : 1960 From: Brenden Sauceda MD Age/Sex: [...] under the care of Dr. Virgen at [facility] with control of his iron overload. He is transferring his care to [facility] as of December 2017. His medical history [...] Xavier Gould Referring Provider: Xavier Gould 01/11/18 1159 <Electronically signed by Brenden Sauceda MD> Date Brenden Sauceda MD Cosigner Signature: Date (if applicable) CC: Xavier Gould MD LIVER Observed: 01/06/2018 Status: F Source: [place] 7:36 AM [facility] REPOSITORY [facility] [address] [place] [address] Liver MR#: [id number] Acct: [id number] Name: YONATHAN COOL Rep #: [id number] : 1960 M 57 From: Reno Arreola MD PCP: Xavier Gould MD Status: REG CLI Study: Liver Date of Exam: 01/06/18 Exam# [id number] Ordering Dr: Brenden Sauceda MD STUDY: ABDOMINAL [...] Reno Arreola MD at 10:24 EDT Tel [phone], Service support , CC: Xavier Gould MD; Brenden Sauceda MD Commissioner Conservation Of Resources: Signed LOW DOSE CT LUNG Observed: 01/06/2018 Status: F Source: [place] SCREENING 7:10 AM [facility] REPOSITORY [facility] [address] [place] [address] Lung Screening MR#: [id number] Acct: [id number] Name: YONATHAN COOL Rep #: [id number] : 1960 M 57 From: Reno Arreola MD PCP: Xavier Gould MD Status: REG CLI Study: Low Dose CT Lung Screening Date of Exam: 01/06/18 Exam# [id number] Ordering Dr: Brenden Sauceda MD STUDY: LOW [...] Reno Arreola MD at 10:30 EDT Tel [phone], Service support , CC: Xavier Gould MD; Brenden Sauceda MD Commissioner Conservation Of Resources: Signed XR SPINE CERVICAL 2 Observed: 01/04/2018 Status: F Source: [facility] 9:07 AM [facility] REPOSITORY EXAM: XR SPINE CERVICAL 2 VIEWS, [...] to C7 Observed: 12/31/2017 Status: COMPLETED Source: [place] 12:00 AM [facility] REPOSITORY Telephone (FPWADS) YONATHAN COOL ([id number]) 1960 M Date Time Provider Department 12/31/17 BRYN GOULD CHARI During your visit today, we recorded the following information about you: Na Gaxiola Ma 12/31/2017 4:36 PM Signed Labs from [facility] received and placed in PCP inbox [...] Gupta - Fully Assessed Reason for Visit: [facility] labs [Other] Prescriptions as of 12/31/2017 [...] (1) Observed: 12/30/2017 Status: F Source: [place] Padilla PT 6:44 PM [facility] REPOSITORY [facility] [address] [place] [address] [address] [place] [address] Fax REHABILITATION SERVICES INITIAL EVALUATION MR#: [id number] Acct: [id number] Name: YONATHAN COOL Rep #: [id number] : 1960 57 From: Yobany Thornton PT, Cert. T, OCS Referring DrSanta: Shaggy Mcgregor MD Status: REG RCR Insurance: [facility] [employer] SELF PAY INSURANCE Patient's Visit Information YONATHAN COOL is a 57 year old M referred to Physical Therapy by MD KALIN Carreno with a diagnosis of s/p CERVICAL FUSION ,RIGHT SIDE WEAKNESS. Date of Evaluation: 12/28/17 Physical Therapist: Yobany Thornton, PT, - Visit Plan Frequency: 2x /Week Duration: 6 Weeks Plan: NO TWISTING/BENDING LIFTING GREATER 5#. PT for postural ex's right UE /LE STRENGTHENING,GAIT - Subjective Subjective: This 57 y/o male presents to physical therapy with s/p cervical spinal fusion Nov 03 at [facility] done by DR Crawford. Patient had posterior fusion C3-7 rods/screws. Patient d/c to home with soft collar,5 # wt restriction.Patient DOI 2008 fell out of truck found to hace cervical fx and and HNP . Patient had 1st cervical laminectomy November 2008 ,6months later had cervical fusion C4-5.Patient continue to have parathesia/tingling seen DR Crawford 2015. Patient has h/o epidural,ablashion ,pain pump. Dr [...] parathesia/tingling right hand ,light touch intact,reflexes C5-6-7 09/22. GAIT: ambulates with straight cane with 2 pont gait with mild foward posture. PALPATION: tender parapinals. AROM: shoulder flexion /abd 140 degrees. CERVICAL ROM: flexion mod loss,rotaion/lateral flexion mod/severe loss. MMT: quads/hams 4/5 ,ankle 4/5 ,hip flexion 3+/5. shoulder lateral/anterior 3+/5,bicep/tricep 4-/5,wrist flexion/extension 4-/5. 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 Please let me know [...] 12/30/2017 Status: F Source: [place] 11:10 AM [facility] REPOSITORY Order Comment: Reason for Laboratory [...] Lymph 1.53 Performed By: #### L100.0100 #### [facility] [address] [place], [address] #### L3300.0700 #### [facility] (refer to report for specific site) refer to report for address and phone number AFP, TUMOR MARKER Collected: 12/30/2017 Status: F Source: [place] 11:10 AM [facility] REPOSITORY Order Comment: Reason for Laboratory Test . Is Patient ? N TYPE CODE TESTS RESULT OUT OF RANGE REFERENCE UNITS LAB L3300.0700 0.0-8.3 ng/mL Normal AFP TUMOR 1.9 2253 Result Comment: Satya ECLIA methodology Performed at: [address] [id number] Environment Friendly Landscape Designer: Jose Auguste PhD, Phone: [phone] Performed By: #### L100.0100 #### [facility] [address] [facility] [place], [address] #### L3300.0700 #### [facility] (refer to report for specific site) refer to report for address and phone number COMPREHENSIVE METABOLIC Collected: 12/30/2017 Status: F Source: [facility] 11:10 AM [facility] REPOSITORY Order Comment: Reason for Laboratory [...] Performed By: #### L500.4050, L503.6030, L503.6550 #### [facility] [place], [address] IRON+IRON BINDING Collected: 12/30/2017 Status: F Source: [place] CAPACITY 11:10 AM [facility] REPOSITORY Order Comment: Reason for Laboratory Test . TYPE CODE TESTS RESULT OUT OF RANGE REFERENCE UNITS LAB L503.6075 250-450 ug/dL TIBC Normal 382 LAB L503.6150 65-175 ug/dL Low IRON 38 LAB L503.6250 15.0-55.0 % Low IRON SATURATION 9.9 Performed By: #### L500.4050, L503.6030, L503.6550 #### [facility] [address] [place], [address] FERRITIN Collected: 12/30/2017 Status: F Source: [place] 11:10 AM [facility] REPOSITORY Order Comment: Reason for Laboratory Test . TYPE CODE TESTS RESULT OUT OF RANGE REFERENCE UNITS LAB L503.6550 26-388 ng/mL Normal FERRITIN 26 Performed By: #### L500.4050, L503.6030, L503.6550 #### [facility] [address] [place], [address] ONCOLOGY HISTORY AND Observed: 12/30/2017 Status: F Source: [place] PHYSICAL 10:58 AM [facility] REPOSITORY [facility] Records Department [address] [place] [address] History and Physical 12/30/17 1005 MR#: [id number] Acct: [id number] Name: YONATHAN COOL Rep #: [id number] : 1960 57 From: Brenden Sauceda MD PCP: Xavier Gould MD Status: REG RCR Y Location: OMD - Problem List (1) Hemochromatosis Status: Chronic [...] under the care of Dr. Virgen at [facility] with control of his iron overload. He is transferring his care to [facility] as of December 2017. His medical history is also notable for a hypercoagulable state with a history of pulmonary embolism and port related thrombosis, diabetes, hypertension, DJD, spondylosis, obesity and H/O superficial bladder cancer (2008) Power of Sleeping Car Conductor: No Living Will: No Health History: Past [...] drinking: Has the patient needed an eye reject opener and filler in the mornings: Comments: Review of Systems [...] been on a phlebotomy protocol since 2013 was a fairly good control of his [...] [place] HEMATOCRIT Collected: 12/13/2017 Status: F Source: [place] 2:38 PM [facility] REPOSITORY TYPE CODE TESTS RESULT OUT OF REFERENCE UNITS RANGE LAB WHCT 39.0-51.0 % [place] Hematocrit 40.5 Result Comment: Test performed at: [facility], [address] [place] [address]., [place] [address]. [place] HEMOGLOBIN Collected: 12/13/2017 Status: F Source: [place] 2:38 PM [facility] REPOSITORY TYPE CODE TESTS RESULT OUT OF REFERENCE UNITS RANGE LAB WHGB 13.0-17.0 g/dL [place] Hemoglobin 14.1 Result Comment: Test performed at: [address] [place] [address]. CNPN Observed: 12/13/2017 Status: COMPLETED Source: [place] 12:00 AM [facility] REPOSITORY Telephone (SARA) YONATHAN COOL ([id number]) 1960 M Date Time Provider Department 12/13/17 [...] pharmacy and notify patient. Zayra Ramsey LPN, LPN 12/13/2017 4:35 PM Signed Spoke with pt., his insurance change from [employer] to [employer]. He just picked up a 90 day [...] LPN 01/19/2018 4:40 PM Signed Spoke with [facility]. No prior auth is needed. 90 day prescription just needs to be sent thru [facility]. [facility] . Patient notified and confirmed [...] GLUCOSE BATTERY Collected: 11/08/2017 Status: F Source: [facility] 11:50 AM [facility] REPOSITORY TYPE CODE TESTS RESULT OUT OF REFERENCE UNITS RANGE LAB GLUP 70-99 mg/dL High Glucose (poc 138 device) Result Comment: No BRAVE per RN: PATIENT TYPE LAB PCSTYP *POC Capillary SAMPLE TYPE Blood *POC GLUCOSE BATTERY Collected: 11/08/2017 Status: F Source: [facility] 8:07 AM [facility] REPOSITORY TYPE CODE TESTS RESULT OUT OF REFERENCE UNITS RANGE LAB GLUP 70-99 mg/dL High Glucose (poc 111 device) Result Comment: No BRAVE per RN: PATIENT TYPE LAB PCSTYP *POC Capillary SAMPLE TYPE Blood *POC GLUCOSE BATTERY Collected: 11/07/2017 Status: F Source: [facility] 4:33 PM [facility] REPOSITORY TYPE CODE TESTS RESULT OUT OF REFERENCE UNITS RANGE LAB GLUP 70-99 mg/dL Glucose (poc 97 device) Result Comment: No BRAVE per RN: PATIENT TYPE LAB PCSTYP *POC Capillary SAMPLE TYPE Blood *POC GLUCOSE BATTERY Collected: 11/07/2017 Status: F Source: [facility] 11:32 AM [facility] REPOSITORY TYPE CODE TESTS RESULT OUT OF REFERENCE UNITS RANGE LAB GLUP 70-99 mg/dL High Glucose (poc 102 device) Result Comment: No BRAVE per RN: PATIENT TYPE LAB PCSTYP *POC Capillary SAMPLE TYPE Blood *POC GLUCOSE BATTERY Collected: 11/07/2017 Status: F Source: [facility] 7:38 AM [facility] REPOSITORY TYPE CODE TESTS RESULT OUT OF REFERENCE UNITS RANGE LAB GLUP 70-99 mg/dL High Glucose (poc 111 device) Result Comment: No BRAVE per RN: PATIENT TYPE LAB PCSTYP *POC Capillary SAMPLE TYPE Blood CHM7,CA Collected: 11/07/2017 Status: F Source: [facility] 2:35 AM [facility] REPOSITORY TYPE CODE TESTS RESULT OUT OF [...] M Est GFR, >60 Performed By: #### Ara, IPB, MGO #### [facility] [address] [place] [address] [place] [address] INORGANIC PHOSPHATE Collected: 11/07/2017 Status: F Source: [facility] 2:35 AM [facility] REPOSITORY TYPE CODE TESTS RESULT OUT OF REFERENCE UNITS RANGE LAB IP 2.2-4.6 mg/dL Inorg Phosphate 2.3 Result Comment: SLIGHTLY HEMOLYZED Performed By: #### Ara, IPB, MGO #### [facility] [address] [place] [address] [place] [address] MAGNESIUM Collected: 11/07/2017 Status: F Source: [facility] 2:35 AM [facility] REPOSITORY TYPE CODE TESTS RESULT OUT OF REFERENCE UNITS RANGE LAB MG 1.6-2.6 mg/dL Magnesium 2.0 Result Comment: SLIGHTLY HEMOLYZED Performed By: #### C7C, IPB, MGO #### [facility] [address] [place], [place] [id number] [facility] [address] [place] [address] *POC GLUCOSE BATTERY Collected: 11/06/2017 Status: F Source: [facility] 8:35 PM [facility] REPOSITORY TYPE CODE TESTS RESULT OUT OF REFERENCE UNITS RANGE LAB GLUP 70-99 mg/dL High Glucose (poc 127 device) Result Comment: No BRAVE per RN: PATIENT TYPE LAB PCSTYP *POC Capillary SAMPLE TYPE Blood *POC GLUCOSE BATTERY Collected: 11/06/2017 Status: F Source: [facility] 4:06 PM [facility] REPOSITORY TYPE CODE TESTS RESULT OUT OF REFERENCE UNITS RANGE LAB GLUP 70-99 mg/dL High Glucose (poc 106 device) Result Comment: No BRAVE per RN: PATIENT TYPE LAB PCSTYP *POC Capillary SAMPLE TYPE Blood XR SPINE CERVICAL 2 Observed: 11/06/2017 Status: F Source: [facility] VIEWS 3:17 PM [facility] REPOSITORY EXAM: XR SPINE CERVICAL 2 VIEWS, [...] GLUCOSE BATTERY Collected: 11/06/2017 Status: F Source: [facility] 11:00 AM [facility] REPOSITORY TYPE CODE TESTS RESULT OUT OF REFERENCE UNITS RANGE LAB GLUP 70-99 mg/dL High Glucose (poc 102 device) Result Comment: No BRAVE per RN: PATIENT TYPE LAB PCSTYP *POC Capillary SAMPLE TYPE Blood *POC GLUCOSE BATTERY Collected: 11/06/2017 Status: F Source: [facility] 7:20 AM [facility] REPOSITORY TYPE CODE TESTS RESULT OUT OF REFERENCE UNITS RANGE LAB GLUP 70-99 mg/dL Glucose (poc 91 device) Result Comment: No BRAVE per RN: PATIENT TYPE LAB PCSTYP *POC Capillary SAMPLE TYPE Blood HEMOGRAM (CBC AND Collected: 11/06/2017 Status: F Source: [facility] [place]) 2:06 AM [facility] REPOSITORY TYPE CODE TESTS RESULT OUT OF [...] WBC NUCLEATED RBC 0.0 Performed By: #### HEMAra MATIAS, IPMl, MGO #### [place] [address] CHM7,CA Collected: 11/06/2017 Status: F Source: [facility] 2:06 AM [facility] REPOSITORY TYPE CODE TESTS RESULT OUT OF [...] GFR >60 mL/min/1.73 sqM Est GFR,non >60 Fijian LAB GFRA >60 mL/min/1.73 sqM Est GFR, >60 Performed By: #### HEMOGC, C7C, IPB, MGO #### [facility] [id number] [place] [address] [address] [place] [address] INORGANIC PHOSPHATE Collected: 11/06/2017 Status: F Source: [facility] 2:06 AM [facility] REPOSITORY TYPE CODE TESTS RESULT OUT OF REFERENCE UNITS RANGE LAB IP 2.2-4.6 mg/dL Inorg Phosphate 3.4 Performed By: #### HEMOGC, C7C, IPB, MGO #### [facility] [address] [place] [id number] [place] [address] [address] [place] [address] MAGNESIUM Collected: 11/06/2017 Status: F Source: [facility] 2:06 AM [facility] REPOSITORY TYPE CODE TESTS RESULT OUT OF REFERENCE UNITS RANGE LAB MG 1.6-2.6 mg/dL Magnesium 1.8 Performed By: #### HEMOGC, C7C, IPB, MGO #### [facility] [address] [place] [address] [place] [address] *POC GLUCOSE BATTERY Collected: 11/05/2017 Status: F Source: [facility] 7:42 PM [facility] REPOSITORY TYPE CODE TESTS RESULT OUT OF REFERENCE UNITS RANGE LAB GLUP 70-99 mg/dL Glucose (poc 90 device) Result Comment: No BRAVE per RN: PATIENT TYPE LAB PCSTYP *POC Capillary SAMPLE TYPE Blood *POC GLUCOSE BATTERY Collected: 11/05/2017 Status: F Source: [facility] 3:24 PM [facility] REPOSITORY TYPE CODE TESTS RESULT OUT OF REFERENCE UNITS RANGE LAB GLUP 70-99 mg/dL High Glucose (poc 107 device) Result Comment: No BRAVE per RN: PATIENT TYPE LAB PCSTYP *POC Capillary SAMPLE TYPE Blood *POC GLUCOSE BATTERY Collected: 11/05/2017 Status: F Source: [facility] 11:49 AM [facility] REPOSITORY TYPE CODE TESTS RESULT OUT OF REFERENCE UNITS RANGE LAB GLUP 70-99 mg/dL High Glucose (poc 108 device) Result Comment: No BRAVE per RN: PATIENT TYPE LAB PCSTYP *POC Capillary SAMPLE TYPE Blood *POC GLUCOSE BATTERY Collected: 11/05/2017 Status: F Source: [facility] 11:23 AM [facility] REPOSITORY TYPE CODE TESTS RESULT OUT OF REFERENCE UNITS RANGE LAB GLUP 70-99 mg/dL Glucose (poc 88 device) Result Comment: No BRAVE per RN: PATIENT TYPE LAB PCSTYP *POC Capillary SAMPLE TYPE Blood *POC GLUCOSE BATTERY Collected: 11/05/2017 Status: F Source: [facility] 7:34 AM [facility] REPOSITORY TYPE CODE TESTS RESULT OUT OF REFERENCE UNITS RANGE LAB GLUP 70-99 mg/dL High Glucose (poc 102 device) Result Comment: No BRAVE per RN: PATIENT TYPE LAB PCSTYP *POC Capillary SAMPLE TYPE Blood HEMOGRAM (CBC AND Collected: 11/05/2017 Status: F Source: [facility] [place]) 2:36 AM [facility] REPOSITORY TYPE CODE TESTS RESULT OUT OF [...] #### HEMOGC, C7C, IPB, MGO #### [facility] [address] [place] [id number] [place] [address] [address] [place] [address] CHM7,CA Collected: 11/05/2017 Status: F Source: [facility] 2:36 AM [facility] REPOSITORY TYPE CODE TESTS RESULT OUT OF [...] GFR >60 mL/min/1.73 sqM Est GFR,non >60 Fijian LAB GFRA >60 mL/min/1.73 sqM Est GFR, >60 Performed By: #### HEMOGC, C7C, IPB, MGO #### [facility] [address] [place] [address] [place] [address] INORGANIC PHOSPHATE Collected: 11/05/2017 Status: F Source: [facility] 2:36 AM [facility] REPOSITORY TYPE CODE TESTS RESULT OUT OF REFERENCE UNITS RANGE LAB IP 2.2-4.6 mg/dL Inorg Phosphate 3.2 Performed By: #### HEMOGC, C7C, IPB, MGO #### [facility] [address] [place] [address] [place] [address] MAGNESIUM Collected: 11/05/2017 Status: F Source: [facility] 2:36 AM [facility] REPOSITORY TYPE CODE TESTS RESULT OUT OF REFERENCE UNITS RANGE LAB MG 1.6-2.6 mg/dL Magnesium 1.6 Performed By: #### HEMOGC, C7C, IPB, MGO #### [facility] [address] [place] [address] [place] [address] *POC GLUCOSE BATTERY Collected: 11/04/2017 Status: F Source: [facility] 7:37 PM [facility] REPOSITORY TYPE CODE TESTS RESULT OUT OF REFERENCE UNITS RANGE LAB GLUP 70-99 mg/dL Glucose (poc 98 device) Result Comment: No BRAVE per RN: PATIENT TYPE LAB PCSTYP *POC Capillary SAMPLE TYPE Blood *POC GLUCOSE BATTERY Collected: 11/04/2017 Status: F Source: [facility] 2:35 PM [facility] REPOSITORY TYPE CODE TESTS RESULT OUT OF REFERENCE UNITS RANGE LAB GLUP 70-99 mg/dL High Glucose (poc 104 device) Result Comment: Notified RNread back No BRAVE per RN: PATIENT TYPE LAB PCSTYP *POC Capillary SAMPLE TYPE Blood *POC GLUCOSE BATTERY Collected: 11/04/2017 Status: F Source: [facility] 1:43 PM [facility] REPOSITORY TYPE CODE TESTS RESULT OUT OF REFERENCE UNITS RANGE LAB GLUP 70-99 mg/dL High Glucose (poc 109 device) Result Comment: Meets BRAVE per RN: PATIENT TYPE LAB PCSTYP *POC Arterial SAMPLE TYPE *POC GLUCOSE BATTERY Collected: 11/04/2017 Status: F Source: [facility] 12:42 PM [facility] REPOSITORY TYPE CODE TESTS RESULT OUT OF REFERENCE UNITS RANGE LAB GLUP 70-99 mg/dL High Glucose (poc 108 device) Result Comment: Meets BRAVE per RN: PATIENT TYPE LAB PCSTYP *POC Arterial SAMPLE TYPE *POC GLUCOSE BATTERY Collected: 11/04/2017 Status: F Source: [facility] 11:50 AM [facility] REPOSITORY TYPE CODE TESTS RESULT OUT OF REFERENCE UNITS RANGE LAB GLUP 70-99 mg/dL High Glucose (poc 107 device) Result Comment: Meets BRAVE per RN: PATIENT TYPE LAB PCSTYP *POC Arterial SAMPLE TYPE BLD GAS 9 Collected: 11/04/2017 Status: F Source: [facility] 11:04 AM [facility] REPOSITORY TYPE CODE TESTS RESULT OUT OF [...] applicable Performed By: #### GAS9 #### [facility] [id number] [place] [address] [address] [place] [address] BLD GAS 9 Collected: 11/04/2017 Status: F Source: [facility] 10:05 AM [facility] REPOSITORY TYPE CODE TESTS RESULT OUT OF [...] applicable Performed By: #### GAS9 #### [facility] [address] [place] [address] *POC GLUCOSE BATTERY Collected: 11/04/2017 Status: F Source: [facility] 6:55 AM [facility] REPOSITORY TYPE CODE TESTS RESULT OUT OF REFERENCE UNITS RANGE LAB GLUP 70-99 mg/dL High Glucose (poc 128 device) Result Comment: Notified RNread back No BRAVE per RN: PATIENT TYPE LAB PCSTYP *POC Capillary SAMPLE TYPE Blood OT D/C OF NON Observed: 10/22/2017 Status: F Source: [facility] 9:29 AM [facility] REPOSITORY [facility] Occupational [facility] [address] [place] [address]. [address] [place] [address] Fax REHABILITATION SERVICES DISCHARGE SUMMARY MR#: [id number] Acct: [id number] Name: YONATHAN COOL JR Rep #: [id number] : 1960 56 From: Razia Carreon Referring [...] continue POC. 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 PT to address and [...] PA AND Observed: 10/19/2017 Status: F Source: [facility] 3:51 PM [facility] REPOSITORY EXAM: XR CHEST PA AND LATERAL, 10/19/2017 14:38 PM COMPARISON: 01/09/2017 CLINICAL INDICATIONS: Preoperative evaluation RELEVANT CLINICAL HISTORY: Z01.818:Encounter for other preprocedural examination M50.20:Other cervical disc displacement, unspecified cervical region I10:Essential (primary) hypertension E11.9:Type 2 diabetes mellitus without complications (HCC) Z79.4:USP (current) use of insulin (HCC) E83.110:Hereditary hemochromatosis [...] this report. Observed: 10/19/2017 Status: F Source: [facility] TYPE AND CROSS - 2:45 PM [facility] PRE-OP [facility] REPOSITORY ABO/RH(D): O POSITIVE ANTIBODY SCREEN: NEGATIVE UNIT NUMBER: [id number] BLOOD COMPONENT TYPE: Red Cells, Leukoreduced_[id number] STATUS OF UNIT: REL FROM [facility] TRANSFUSION STATUS: OK TO TRANSFUSE CROSSMATCH RESULT: Electronically Compatible UNIT NUMBER: [id number] BLOOD COMPONENT TYPE: Red Cells, Leukoreduced_[id number] STATUS OF UNIT: REL FROM ALLOC TRANSFUSION STATUS: OK TO TRANSFUSE CROSSMATCH RESULT: Electronically Compatible Performed By: #### XMPO #### [facility] [address] [place] [address] [place] [address] URINALYSIS W REFLEX Collected: 10/19/2017 Status: F Source: [facility] CULTURE -[address]RE[address] 2:15 PM [facility] REPOSITORY TYPE CODE TESTS RESULT OUT OF RANGE REFERENCE UNITS LAB ENTRY LEVEL PROJECT COORDINATOR Clear Appearance Urine Clear LAB SPGR 1.001-1.035 Specific [place] urine 1.020 LAB UGL Negative mg/dL Glucose [...] URINE Mucus Performed By: #### URN1C #### [facility] [address] [place] [address] CBC WITH DIFF Collected: 10/19/2017 Status: F Source: [facility] 2:15 PM [facility] REPOSITORY TYPE CODE TESTS RESULT OUT OF [...] Lymph 2.96 LAB AMONO 0.30-0.82 K/uL Abs [place] 0.70 LAB AEOS 0.04-0.54 K/uL Abs Eos 0.16 LAB ABASO 0.01-0.08 K/uL Abs Baso 0.04 Performed By: #### CBCDFM, CHM6C, HFPC #### [facility] [address] [place], [place] [address] #### PTCC, PTTC #### [facility] [address] [place] [address] [place] [address] PT/INR - T[address] Collected: 10/19/2017 Status: F Source: [facility] LAB 2:15 PM [facility] REPOSITORY TYPE CODE TESTS RESULT OUT OF RANGE REFERENCE UNITS LAB PT 11.9-14.2 sec PT 12.6 LAB INR 0.9-1.1 INR 1.0 Performed By: #### CBCDFM, CHM6C, HFPC #### [facility] [address] [place] [address] #### PTCC, PTTC #### [facility] [address] [place] [address] [place] [address] PTT - T[address] LAB Collected: 10/19/2017 Status: F Source: [facility] 2:15 PM [facility] REPOSITORY TYPE CODE TESTS RESULT OUT OF RANGE REFERENCE UNITS LAB PTT 24.0-34.3 sec High PTT 35.7 Performed By: #### CBCDFM, CHM6C, HFPC #### [facility] [address] [place] [address] #### PTCC, PTTC #### [facility] [address] [place] [address] [place] [address] [place] [address] ROAD Collected: 10/19/2017 Status: F Source: [facility] LAB 2:15 PM [facility] REPOSITORY TYPE CODE TESTS RESULT OUT OF REFERENCE UNITS RANGE LAB BUN 7-22 mg/dL BUN 13 LAB NA 133-143 mmol/L Sodium 138 LAB K 3.5-5.0 mmol/L Potassium 4.1 LAB CL 98-108 mmol/L Chloride 105 LAB CO2 22-30 mmol/L Carbon Dioxide 27 LAB CREA 0.70-1.30 mg/dL Creatinine 0.91 LAB GAP 7-17 mmol/L Anion Gap 10 LAB GFR >60 mL/min/1.73 sqM Est GFR,non >60 Fijian LAB GFRA >60 mL/min/1.73 sqM Est GFR, >60 Performed By: #### CBCDFM, CHM6C, HFPC #### [facility] [address] [place] [address] #### PTCC, PTTC #### [facility] [address] [place] [id number] [place] [address] [address] [place] [address] HEPATIC FUNCTION Collected: 10/19/2017 Status: F Source: [facility] 2:15 PM [facility] REPOSITORY TYPE CODE TESTS RESULT OUT OF REFERENCE UNITS RANGE LAB ALB 3.5-5.0 g/dL Albumin 4.7 LAB BILD <0.3 mg/dL Bilirubin Direct 0.1 LAB BILT <1.5 mg/dL Bilirubin Total 0.5 LAB ALP 32-126 U/L Alkaline Phosphatase 111 LAB ALT 10-52 U/L ALT 42 LAB AST 14-40 U/L AST 31 LAB TP 6.4-8.3 g/dL Total Protein 7.6 Performed By: #### CBCDFM, CHM6C, HFPC #### [facility] [address] [place] [address] #### PTCC, PTTC #### [facility] [address] [place] [address] [address] [place] [address] NICOTINE(COTININE),URINE Collected: Status: F Source: [facility] 10/19/2017 2:15 PM [facility] REPOSITORY TYPE CODE TESTS RESULT OUT OF REFERENCE UNITS RANGE LAB NICOTU 500 ng/mL POSITIVE Nicotine(Co tinine),Uri ne Performed By: #### NICOTU #### [facility] [address] [place] [address] [place] [address] Observed: 10/19/2017 Status: F Source: [facility] SCREEN: RESP STAPH 2:15 PM [facility] (HIGH RISK SUR[facility]ERY) [facility]: Negative Negative This test [...] by the Clinical Microbiology Laboratory at [facility]. It has not b een cleared or approved by the FDA.The laboratory is regulated under CLIA as qualified to perform high-complexity testing. This test is used for clinical purposes. It should not be regarded as investigational or for research. Performed By: #### SCRSB #### [address] [address] CNPN Observed: 10/15/2017 Status: COMPLETED Source: [place] 12:00 AM [facility] REPOSITORY Telephone (HauteDayDS) YONATHAN COOL ([id number]) 1960 M Date Time Provider Department 10/15/17 BRYN GOULD FPxaitment During your visit today, we recorded the following information about you: Ezequiel Onur 10/15/2017 11:00 AM Signed Received 10/14/[address] Talley in [place]. Placed in pcps inbox for review. updated. Route to [place] for scanning. Sisi Tipton Ma 10/22/2017 12:00 PM Signed Sent to scanning Allergies As of Date: 10/15/2017 Noted Allergy Reaction KEFLEX (CEPHALEXIN) 03/11/2016 11 - Vomiting LYRICA (PREGABALIN) 05/31/2009 Comments: Pt. passed out and BP drop MORPHINE 09/16/2011 2 - Rash PROZAC (FLUOXETINE HCL) 12/12/2012 8 - GI Upset Date Reviewed: 10/07/2017 Reviewed by: Nakia Graham (Rn) LINH Pa - Fully Assessed Reason for Visit: Diabetic Eye Exam [3488] Cmt: Dr. Talley - [place] 10/14/17 Prescriptions as of 10/15/2017 Sig: INSULIN [...] (HCC) [D68.9] INVALID FOR* Encounter Status:Closed by EZEUQIEL MURPHY on 10/15/17 RE-EVALUATION - PT (1) Observed: 04/21/2017 Status: F Source: [place] 12:09 PM [facility] REPOSITORY [facility] Physical Therapy [facility] [address] [facility] [place] [address] Fax REEVALUATION / MEDICARE RECERTIFICATION PHYSICAL THERAPY MR#: [id number] Acct: [id number] Name: YONATHAN COOL JR Rep #: [id number] : 1960 56 From: Yobany Thornton PT, Cert. T, OCS Referring DrSanta: Shaggy Mcgregor MD Status: REG RCR Insurance: [facility] [employer] MAN Mcgregor MD, It has been my pleasure [...] de.ltoid. hip flexion 3+/5,quads/hams 4-/5,ankle DF 4-/5. REST ROOM MATRON STRENGTH: 20# USING dynamator Plan Plan: CONT [...] do not hesitate to contact me at [phone] by phone or if you have questions [...] SEVERITY SOURCE 08/31/2018 Drug fluoxetine Vomiting [facility] [place] Allergy/416 HCl/[id number]([facility] 142636([facility] ED CT) Repository 08/31/2018 Drug lorazepam/C61148 Other [facility] [place] Allergy/416 1460(RXNORM) [facility] 163896([facility] ED CT) Repository 08/31/2018 Drug morphine/M534934 Rash [facility] [place] Allergy/416 545(RXNORM) [facility] 006905([facility] ED CT) Repository 08/31/2018 Drug cephalexin/F0060 Nausea/Vom/Diarrh [facility] [place] Allergy/416 79600(RXNORM) [facility] 024721([facility] ED CT) Repository 08/31/2018 Drug pregabalin/F0060 HYPOTENSION [facility] [place] Allergy/416 61418(RXNORM) [facility] 822093([facility] ED CT) Repository 12/13/2017 DRUG LORAZEPAM Mental Chg [facility] INGREDI/[address] [place] 841202(SNOM Repository ED CT) 03/11/2016 DRUG CEPHALEXIN Vomiting High [facility] INGREDI/[address] [place] 313586(SNOM Repository ED CT) 12/12/2012 DRUG FLUOXETINE HCL GI UPSET [facility] INGREDI/[address] [place] 595003(SNOM Repository ED CT) 09/16/2011 DRUG MORPHINE RASH [facility] INGREDI/[address] [place] 504972(SNOM Repository ED CT) 05/31/2009 DRUG [facility]ABALIN [facility] [place] 404858(SNOM Repository ED CT) ENCOUNTERS ENCOUNTERS ADMIT/DISCHARGE ACCOUNT NUMBER ADMITTING ENCOUNTER LOCATION SOURCE CLASS 10/05/2018 [id number] Ambulatory [facility] ding:CT Repository 09/06/2018/09/06/20 [id number] Ambulatory BMSBuilding: [place] 18 BMS.[facility] Repository 09/05/2018 [id number] Ambulatory [facility] ding:US Repository 08/31/2018 [id number] Ambulatory [facility] ding:CT Repository 08/31/2018 [id number] Ambulatory [facility] ding:MEDOUTP Repository 08/31/2018/08/31/20 [id number] Ambulatory BMSBuilding: [place] 18 BMS.[facility] Repository 08/31/2018/08/31/20 [id number] Ambulatory BMSBuilding: [place] 18 BMS.[facility] Repository 08/25/2018 [id number] Ambulatory [facility] ding:RAD Repository 08/24/2018/08/24/20 [id number] Ambulatory BMSBuilding: [place] 18 BMS.[facility] Repository 08/18/2018/08/18/20 [id number] Ambulatory BMSBuilding: [place] 18 BMS.CF.[facility] Repository 08/18/2018/08/18/20 [id number] Ambulatory [address] ding:[facility] : AC18 08/15/2018 [id number] Ambulatory BMSBuilding: [place] [facility] Repository 07/27/2018 [id number] Ambulatory BMSBuilding: [place] BMS.[facility] Repository 07/26/2018/07/26/20 [id number] Ambulatory BMSBuilding: [place] 18 BMS.[facility] Repository 07/19/2018 [id number] Ambulatory [facility] ding:ONC Repository 06/14/2018 [id number] Ambulatory BMSBuilding: [place] BMS.CF.[facility] Repository 05/31/2018/05/31/20 [id number] Ambulatory BMSBuilding: [place] 18 BMS.[facility] Repository 04/21/2018 [id number] Ambulatory Building:[facility] Repository 04/04/2018 [id number] Ambulatory Building:[facility] Repository 03/16/2018 [id number] Ambulatory Building:[facility] [place] 03/15/2018 [id number] Ambulatory BMSBuilding: [place] BMS.[facility] Repository 03/08/2018/03/08/20 [id number] Emergency [address] ding:ED Repository 03/03/2018/03/03/20 [id number] Ambulatory [address] ding:PT Repository 03/02/2018/03/02/20 [id number] Ambulatory BMSBuilding: [place] 18 [facility] Repository 02/15/2018 [id number] Ambulatory [facility] ding:LABSPEC Repository 01/31/2018 [id number] Ambulatory [facility] ding:CT Repository 01/31/2018 [id number] Ambulatory Building:[facility] Repository 01/11/2018 [id number] Ambulatory BMSBuilding: [place] BMS.CF.[facility] Repository 01/06/2018 [id number] Ambulatory [facility] ding:CT Repository 01/04/2018 [id number] Ambulatory Building:[facility] Repository 01/04/2018 [id number] Ambulatory Building:CRD [facility] Repository 12/30/2017 [id number] Ambulatory BMSBuilding: [place] BMS.CF.O [facility] Repository 12/13/2017 [id number] Ambulatory [facility] Repository 12/13/2017/12/15/19 [id number] Ambulatory [address] Repository 12/13/2017/12/14/19 [id number] Ambulatory [address] Repository 11/30/2017 [id number] Ambulatory Building:[facility] Repository 11/15/2017 [id number] Ambulatory Building:[facility] Repository 11/04/2017/11/08/19 [id number] SHAGGY MCGREGOR Inpatient Building:[place] [address] Encounter Room: [place] [address]Bed: A [facility] Repository 10/19/2017 [id number] Ambulatory Building:KJL [facility] Repository 10/19/2017 [id number] Ambulatory Building:KRI [facility] Repository 10/19/2017 [id number] Ambulatory Building:OPA [facility] Repository 10/19/2017 [id number] Ambulatory Building:[facility] Repository 08/02/2017/08/02/20 [id number] Ambulatory [place] 17 [facility] ding:PT Repository PAYERS PAYERS ENCOUNTER GUARANTOR PAYER SUBSCRIBER SOURCE 10/05/2018 YONATHAN COOL Primary YONATHAN Lua [address] Insurance:Powered.: [facility] CHETAN [facility] [place] [id number] Number: Repository 12[address]Akh: [phone]) [id number] [phone] () Date: [employer] [address] [address]RA: 10/05/2018 Secondary NOT GIVENUNK [place] Insurance:SELF PAY Community [facility] Hospital Number: Effective Repository Date:2018-09-21 09/06/2018 YONATHAN COOL Primary YONATHAN COOL [place] Jr[address] Insurance:MEDICARE Jr.: Community [address] PART A [facility] [id number], [place] Number: Repository [address]Gmh: 330 [id number] [phone] () Date:2018-09-01 09/06/2018 Secondary YONATHAN COOL [place] Insurance:AETNA LIFE Jr.: Community INSURANCE [id number] Number: Repository [id number] Date:1351-27-64TF [address] [place] [address]EW: 09/06/2018 Tertiary NOT GIVENUNK [place] Insurance:SELF PAY [facility] Number: Effective Repository Date:2018-09-05 09/05/2018 YONATHAN COOL Primary LIANA Tong [place] Jr[address] Insurance:AETNAPolicy HOBARTDOB: Community [address] Number: [id number], [place] [id number] Repository [address]Tys: (330) Date:5457-92-87XY [phone] () [id number] MILYROXANN [address]NW: 09/05/2018 Secondary YONATHAN COOL [place] Insurance:MEDICARE Jr.: Community PART A [facility] [id number] Hospital Number: Repository [id number] Date:2018-08-08 09/05/2018 Tertiary NOT GIVENUNK [place] Insurance:SELF PAY [facility] Number: Effective Repository Date:2018-08-08 08/31/2018 YONATHAN COOL Primary LIANA L [place] Jr[address] Insurance:AETNAPolicy HOBARTDOB: Community [address] Number: [id number], [place] [id number] Repository [address]Qbk: (330) Date:2514-67-32MY [phone] () [id number] MILYROXANN [address]GQ: 08/31/2018 Secondary YONATHAN COOL [place] Insurance:MEDICARE Jr.: Community PART A BPolicy [id number] Hospital Number: Repository [id number] Date:2018-08-31 08/31/2018 Tertiary NOT GIVENUNK [place] Insurance:SELF PAY [facility] Number: Effective Repository Date:2018-08-31 08/31/2018 YONATHAN COOL Primary LIANA L [place] Jr[address] Insurance:AETNAPolicy HOBARTDOB: [facility] DRAPPLE Number: [id number], [place] [id number] Repository [address]Ywg: 330) Date:8588-32-38FD [phone] () 629924TFDENNISTON, [place] [address]NY: 08/31/2018 Secondary YONATHAN COOL [place] Insurance:MEDICARE Jr.: Community PART A [facility] [id number] Hospital Number: Repository [id number] Date:2018-08-31 08/31/2018 Tertiary NOT GIVENUNK [place] Insurance:SELF PAY [facility] Number: Effective Repository Date:2018-08-31 08/31/2018 YONATHAN COOL Primary LIANA L [place] [address] Insurance:AETNAPolicy HOBARTDOB: [facility] DRAPPLE Number: [id number], [place] [id number] Repository [address]Cdd: (330) Date:5872-61-37GG [phone] () 406271DNDENNISTON, [place] [address]DR: 08/31/2018 Secondary YONATHAN COOL [place] Insurance:MEDICARE Jr.: Community PART A olicy [id number] Hospital Number: Repository [id number] Date:2018-08-31 08/31/2018 Tertiary NOT GIVENUNK [place] Insurance:SELF PAY [facility] Number: Effective Repository Date:2018-08-31 08/31/2018 YONATHAN COOL Primary LIANA Lua [address] Insurance:AETNAPolicy HOBARTDOB: Community [place] [address] Number: [id number], [place] [id number] Repository [address]Qtf: (330) Date:9395-15-32KX [phone] (HP) 900015PM ROXANN JONES [address]CU: 08/31/2018 Secondary YONATHAN COOL [place] Insurance:MEDICARE Jr.: Community [facility] [id number] Hospital Number: Repository [id number] Date:2018-05-31 08/31/2018 Tertiary NOT GIVENUNK [place] Insurance:SELF PAY [facility] Number: Effective Repository Date:2018-08-31 08/25/2018 YONATHAN COOL Primary LIANA [address] Insurance:AETNAPolicy HOBARTDOB: [facility] DRAPPLE Number: [id number], [place] [id number] Repository [address]Uid: (330) Date:5878-38-82PP [phone] (HP) 157048[place] [address]ZX: 08/25/2018 Secondary YONATHAN Peri MARY [place] Insurance:MEDICARE Jr.: Community PART A [facility] [id number] Hospital Number: Repository [id number] Date:2018-08-25 08/25/2018 Tertiary NOT GIVENUNK [place] Insurance:SELF PAY [facility] Number: Effective Repository Date:2018-08-25 08/24/2018 YONATHAN COOL Primary LIANA [address] Insurance:AETNAPolicy HOBARTDOB: [facility] DR[address]LE Number: [id number], [place] [id number] Repository [address]Iig: (330) Date:6804-62-97XZ [phone] (HP) [id number] MILYROXANN [address]GZ: 08/24/2018 Secondary YONATHAN Whitt MARY [place] Insurance:MEDICARE Jr.: Community PART A BPolicy [id number] Hospital Number: Repository [id number] Date:2018-08-19 08/24/2018 Tertiary NOT GIVENUNK [place] Insurance:SELF PAY [facility] Number: Effective Repository Date:2018-08-19 08/18/2018 YONATHAN COOL Primary LIANA L [place] Jr[address] Insurance:AETNAPolicy HOBARTDOB: Community [address] Number: [id number], [place] [id number] Repository [address]Lpi: (330) Date:0050-97-43TE [phone] () 144798SKDENNIST[place], [place] [address]AP: 08/18/2018 Secondary YONATHAN COOL [place] Insurance:MEDICARE Jr.: Community PART A [facility] [id number] Hospital Number: Repository [id number] Date:2018-07-27 08/18/2018 Tertiary NOT GIVENUNK [place] Insurance:SELF PAY [facility] Number: Effective Repository Date:2018-08-18 08/18/2018 YONATHAN COOL Primary LIANA L [place] Jr[address] Insurance:AETNAPolicy HOBARTDOB: Community [address] Number: [id number], [place] [id number] Repository [address]Rzn: (330) Date:3663-54-15VR [phone] () 256965SADENNISTON, [place] [address]DI: 08/18/2018 Secondary YONATHAN COOL [place] Insurance:MEDICARE Jr.: Community PART A olicy [id number] Hospital Number: Repository [id number] Date:2018-07-27 08/18/2018 Tertiary NOT GIVENUNK [place] Insurance:SELF PAY [facility] Number: Effective Repository Date:2018-07-27 08/15/2018 YONATHAN COOL Primary LIANA L [place] Jr[address] Insurance:AETNAPolicy HOBARTDOB: Community [address] Number: [id number], [place] [id number] Repository [address]Rcz: (330) Date:8526-99-00ZG [phone] () 902556GNDENNISTON, [place] [address]BI: 08/15/2018 Secondary YONATHAN COOL [place] Insurance:MEDICARE Jr.: Community PART A olicy [id number] Hospital Number: Repository [id number] Date:2018-07-27 08/15/2018 Tertiary NOT GIVENUNK [place] Insurance:SELF PAY [facility] Number: Effective Repository Date:2018-08-15 07/27/2018 YONATHAN COOL Primary NOT GIVENUNK [place] Jr[address] Insurance:SELF PAY [facility] [place] Number: Effective Repository 19[address]Kky: (330) Date:2018-07-27 [phone] (HP) 07/26/2018 YONATHAN COOL Primary LIANA L [place] [address] Insurance:AETNAPolicy HOBARTDOB: Community [address] Number: [id number], [place] [id number] Repository [address]Frh: (330) Date:9583-49-86CE [phone] () 823285PUDENNISTON, [place] [address]LR: 07/26/2018 Secondary YONATHAN COOL [place] Insurance:MEDICARE Jr.: Community PART A [facility] [id number] Hospital Number: Repository [id number] Date:2018-07-18 07/26/2018 Tertiary NOT GIVENUNK [place] Insurance:SELF PAY [facility] Number: Effective Repository Date:2018-07-25 07/19/2018 YONATHAN COOL Primary LIANA L [place] Jr[address] Insurance:AETNAPolicy HOBARTDOB: Community [address] Number: [id number], [place] [id number] Repository [address]Shh: (330) Date:7911-41-34QA [phone] () 402779JQ [place] [address]QG: 07/19/2018 Secondary YONATHAN COOL [place] Insurance:MEDICARE Jr.: Community PART A olicy [id number] Hospital Number: Repository [id number] Date:2017-12-29 07/19/2018 Tertiary NOT GIVENUNK [place] Insurance:SELF PAY Community [facility] Number: Effective Repository Date:2017-12-29 06/14/2018 YONATHAN COOL Primary LIANA L [place] Jr[address] Insurance:AETNAPolicy HOBARTDOB: Community [address] Number: [id number], [place] [id number] Repository [address]19[address]Irq: 330) Date:2945-74-66CK [phone] () 478815ZZDENNIST[place], [place] [address]VS: 06/14/2018 Secondary YONATHAN COOL [place] Insurance:MEDICARE Jr.: Community PART A [facility] [id number] Hospital Number: Repository [id number] Date:2017-12-29 06/14/2018 Tertiary NOT GIVENUNK [place] Insurance:SELF PAY [facility] Number: Effective Repository Date:2018-06-14 05/31/2018 YONATHAN COOL Primary LIANA L [place] [address] Insurance:AETNAPolicy HOBARTDOB: [facility] DRAPPLE Number: [id number], [place] [id number] Repository [address]Tiv: (330) Date:3757-10-70IT [phone] () 062380DJDENNISTON, [place] [address]ZB: 05/31/2018 Secondary YONATHAN COOL [place] Insurance:MEDICARE Jr.: Community PART A olicy [id number] Hospital Number: Repository [id number] Date:2018-03-02 05/31/2018 Tertiary NOT GIVENUNK [place] Insurance:SELF PAY [facility] Number: Effective Repository Date:2018-05-31 04/21/2018 [id number] Primary Insurance:[facility] YONATHAN Whitt [facility] OB: HEALTH MANAGEMENT HOBARTDOB: [place] [facility] [id number] [facility] Number: [facility] [address] [place], [id number] [address] [place], Repository [place] [address]Lkb: Date:3203-85-95Homy [place] [address]Sxe: Name:OTHER GOVERN () () 04/04/2018 [id number] Primary Insurance:[facility] YONATHAN Whitt [facility] OB: HEALTH MANAGEMENT HOBARTDOB: [place] [facility] [id number] [facility] Number: [facility] [address] [place], [id number] [address] [place], Repository [place] [address]Ohq: Date:0553-26-88Ntdc [place] [address]Phv: Name:OTHER GOVERN () () 03/16/2018 [id number] Primary Insurance:[facility] YONATHAN Whitt [facility] OB: HEALTH MANAGEMENT HOBARTDOB: [place] [facility] [id number] [facility] Number: [facility] [address] [place], [id number] [address] [place], Repository [place] [address]Och: Date:3722-33-96Grnr [place] [address]Bco: Name:OTHER GOVERN () () 03/15/2018 YONATHAN COOL Primary LIANA [address] Insurance:AETNAPolicy HOBARTDOB: [facility] DR[address] Number: [id number] Hospital [place] [id number] Repository 20[address]Glh: (330) Date:6290-87-74BL [phone] () 700325CU ROXANN JONES [address]TL: 03/15/2018 Secondary YONATHAN Lua Insurance:MEDICARE Jr.: Community PART A [facility] [id number] Hospital Number: Repository [id number] Date:2017-12-29 03/15/2018 Tertiary NOT GIVENUNK [place] Insurance:SELF PAY [facility] Number: Effective Repository Date:2018-03-15 03/08/2018 YONATHAN COOL Primary LIANA Blanco[place] Jr[address] Insurance:AETNAPolicy HOBARTDOB: Community [address] Number: [id number], [place] [id number] Repository [address]Lit: (330) Date:9873-82-81UC [phone] (HP) 034217CQ MILYROXANN [address]KP: 03/08/2018 Secondary YONATHAN Lua Insurance:MEDICARE Jr.: Community PART A [facility] [id number] Hospital Number: Repository [id number] Date:2018-03-08 03/08/2018 Tertiary NOT GIVENUNK [place] Insurance:SELF PAY [facility] Number: Effective Repository Date:2018-03-08 03/03/2018 YONATHAN COOL Primary YONATHAN COOL [place] Jr[address] Insurance:OB HEALTH Jr.: [facility] DRAPPLE [facility] [place] [id number], [place] Number: Repository [address]Ogq: (271) [id number] [phone] (HP) Date: [address] [address]FI: 03/03/2018 Secondary NOT GIVENUNK [place] Insurance:SELF PAY [facility] Number: Effective Repository Date:2017-12-24 03/02/2018 YONATHAN COOL Primary LIANA Blancooster Jr[address] Insurance:AETNAPolicy HOBARTDOB: [facility] [address] Number: [id number], [place] [id number] Repository [address]Qdv: (330) Date:3640-96-71KE [phone] (HP) [id number] ROXANN JONES [address]BB: 03/02/2018 Secondary YONATHAN COOL [place] Insurance:MEDICARE Jr.: Community PART A [facility] [id number] Hospital Number: Repository [id number] Date:2017-12-30 03/02/2018 Tertiary NOT GIVENUNK [place] Insurance:SELF PAY [facility] Number: Effective Repository Date:2017-12-30 02/15/2018 YONATHAN COOL Primary LIANA Tong [place] [address] Insurance:AETNAPoly [facility]: [facility] Number: [id number], [place] [id number] Repository [address]Nii: (330) Date:1964-44-14IW [phone] () 283096NY[place], [place] [address]NR: 02/15/2018 Secondary YONATHAN COOL [place] Insurance:MEDICARE Jr.: Community PART A [facility] [id number] Hospital Number: Repository [id number] Date:2018-02-15 02/15/2018 Tertiary NOT GIVENUNK [place] Insurance:SELF PAY [facility] Number: Effective Repository Date:2018-02-15 01/31/2018 YONATHAN COOL Primary YONATHAN COOL [place] [address] Insurance:[facility] Jr.: [facility] [id number], [place] Number: Repository [address]Neu: (485) [id number] [phone] (HP) Date: [address] [address]OV: 01/31/2018 Secondary NOT GIVENUNK [place] Insurance:SELF PAY [facility] Number: Effective Repository Date:2018-01-24 01/31/2018 [id number] Primary Insurance:[facility] YONATHAN Whitt [facility] OB: HEALTH MANAGEMENT HOBARTDOB: [place] [facility] [id number] Number: [facility] DRPELHAM, [id number] [facility], Repository [place] [address]Ccu: Date:6747-20-16Ifif [place] [address]Dvx: Name:OTHER [facility] (HP) (HP) 01/31/2018 Secondary SHARATH [facility] Insurance:AETNAPolicy HOBARTDOB: University Number: [id number] [facility] [id number] [facility] Date:5897-73-39Uugd [address] [place], Repository Name:[place] [address]Rno: (HP) 01/11/2018 YONATHAN Peri Primary LIANA Tong [place] [id number] [address] Insurance:AETNAPolicy HOBARTDOB: [facility] DR[address]LE Number: [id number] [place], [place] [id number] Repository [address]Ezk: 330) Date:5726-90-84XK [phone] () 101506PN ROXANN JONES [address]UP: 01/11/2018 Secondary YONATHAN Peri [place] Insurance:MEDICARE HOBARTDOB: Community PART A BPolicy [id number] Hospital Number: Repository [id number] Date:2017-12-29 01/11/2018 Tertiary NOT GIVENUNK [place] Insurance:SELF PAY [facility] Number: Effective Repository Date:2018-01-11 01/06/2018 YONATHAN Peri Primary LIANA Tong [place] [id number] [address] Insurance:AETNAPolicy HOBARTDOB: [facility] DR[address]LE Number: [id number] [place], [place] [id number] Repository [address]Pyh: 330) Date:2819-92-39JS [phone] () [id number] ROXANN JONES [address]SD: 01/06/2018 Secondary YONATHAN Peri [place] Insurance:MEDICARE HOBARTDOB: Community PART A olicy [id number] Hospital Number: Repository [id number] Date:2017-12-30 01/06/2018 Tertiary NOT GIVENUNK [place] Insurance:SELF PAY [facility] Number: Effective Repository Date:2017-12-30 01/04/2018 [id number] Primary Insurance:[facility] YONATHAN Whitt [facility] OB: HEALTH MANAGEMENT HOBARTDOB: [place] [facility] [id number] [facility] APPLE [place] Number: APPLE [facility] [address] [place], [id number] [address] [place], Repository [place] [address]Lyy: Date:1971-05-55Bkjd [place] [address]Ofd: Name:OTHER GOVERN () (HP) 01/04/2018 [id number] Primary Insurance:[facility] YONATHAN Whitt [facility] OB: HEALTH MANAGEMENT HOBARTDOB: [place] [facility] [id number] [facility] APPLE [place] Number: APPLE [facility] [address] [place], [id number] [address] [place], Repository [place] [address]Qde: Date:4865-14-24Jyyb [place] [address]Ryh: Name:OTHER GOVERN () () 12/30/2017 Yonathan Whitt [place] Primary LIANA L [place] [address] [place] Insurance:AETNAPolicy HOBARTDOB: [facility] DrApple Number: [id number], [place] [id number] Repository [address]Cph: 330) Date:1497-46-90GT [phone] () 560629FPDENNISTON, [place] [address]MP: 12/30/2017 Secondary YONATHAN Whitt [place] Insurance:MEDICARE HOBARTDOB: Community PART A BPolicy [id number] Hospital Number: Repository [id number] Date:2017-12-29 12/30/2017 Tertiary NOT GIVENUNK [place] Insurance:SELF PAY [facility] Number: Effective Repository Date:2017-12-30 11/30/2017 [id number] Primary Insurance:[facility] YONATHAN Whitt [facility] OB: HEALTH MANAGEMENT HOBARTDOB: [place] [facility] [id number] [facility] Number: [facility] [address] [place], [id number] [address] [place], Repository [place] [address]Ioy: Date:5823-12-17Bzwl [place] [address]Uky: Name:OTHER GOVERN () (HP) 11/30/2017 Secondary [facility] Insurance:AETNAPolicy HOBARTDOB: University Number: [id number] [facility] [id number] APPLE [facility] Date:5607-57-03Rpre [address] [place], Repository Name:[place]ARE [place] [address]Qiv: (HP) 11/15/2017 [id number] Primary Insurance:[facility] YONATHAN Whitt [facility] OB: HEALTH MANAGEMENT HOBARTDOB: [place] [facility] [id number] [facility] APPLE [place] Number: [facility] [address] [place], [id number] [address] [place], Repository [place] [address]Fdg: Date:4460-78-85Zlko [place] [address]Mcq: Name:OTHER GOVERN () (HP) 11/04/2017 [id number] Primary Insurance:[facility] YONATHAN Whitt [facility] OB: HEALTH MANAGEMENT HOBARTDOB: [place] [facility] [id number] [facility] Number: [facility] [address] [place], [id number] [address] [place], Repository [place] [address]Auq: Date:4683-44-20Ptkt [place] [address]Ycr: Name:OTHER GOVERN (HP) (HP) 11/04/2017 Secondary [facility] Insurance:AETNAPolicy HOBARTDOB: University Number: [id number] [facility] [id number] [facility] Date:2948-27-86Imev [address] [place], Repository Name:[place] [address]Ezx: (HP) 10/19/2017 [id number] Primary Insurance:[facility] YONATHAN Whitt [facility] OB: HEALTH MANAGEMENT HOBARTDOB: [place] [facility] [id number] [facility] APPLE [place] Number: [facility] [address] [place], [id number] [address] [place], Repository [place] [address]Bwa: Date:9653-48-01Fawn [place] [address]Phi: Name:OTHER GOVERN () () 10/19/2017 [id number] Primary Insurance:[facility] YONATHAN Whitt [facility] OB: HEALTH MANAGEMENT HOBARTDOB: [place] [id number] [facility] Number: [facility] [address] [place], [id number] [address] [place], Repository [place] [address]Pbt: Date:3624-64-01Gnyh [place] [address]Ttt: Name:OTHER GOVERN () () 10/19/2017 [id number] Primary Insurance:[facility] YONATHAN Whitt [facility] OB: HEALTH MANAGEMENT HOBARTDOB: [place] [facility] [id number] [facility] Number: [facility] [address] [place], [id number] [address] [place], Repository [place] [address]Vew: Date:1278-92-27Vweb [place] [address]Whe: Name:OTHER GOVERN () () 08/02/2017 Yonathan Cool Primary Yonathan Cool [place] [address] Insurance:[facility] JRDOB: [facility] DrApple GALION [facility]UTIONSPolicy [id number] [place] Number: Repository [id number]: [id number] [phone] Date: 6 () [place], [place] [address]QQ: 08/02/2017 Secondary LIANA Lua [facility] Number: [id number] Hospital [id number] Repository Date:[id number] ROXANN Jones [address]II: 08/02/2017 Tertiary Yonathan Lua Insurance:MEDICARE JRDOB: Community PART A BPolicy [id number] Number: Repository [id number] Date:2011-10-21 08/02/2017 Tertiary NOT GIVENNAI [place] Insurance:SELF PAY [facility] Number: Effective Repository Date:2017-02-01
== END ==
PROVIDERS: Family Provider Family Medicine; PCP Family Medicine; Referring Provider Surgery; Visit Provider Surgery
DX: R10.9 Unspecified abdominal pain (principal)
CPT/HCPCS: 85025

== ENCOUNTER → 2018-08-31 15:20 | Outpatient (CLI) | payer OTHER, MEDICARE, SELFPAY ==
[2018-08-31 13:47] VITALS: BMI 32.8
--- NOTE | 2018-08-31 15:23 | CT_ITS ---
STUDY: CT ABDOMEN WITH CONTRAST REASON FOR EXAM: Male, 57 years old. Right-sided abdominal wall swelling for one week. History of bladder cancer and hemochromatosis. RADIATION DOSAGE (If Supplied By Facility): CTDIvol = ( 16.83 ) mGy, DLP = ( 934.18 ) mGycm TECHNIQUE: Transaxial images were obtained post I.V. administration of 100 ml of Isovue 300 contrast, and with oral contrast. Sagittal and coronal images were reconstructed. Individualized dose optimization techniques were used for this CT. COMPARISON: None. FINDINGS: The visualized lung bases are unremarkable. The visualized portions of the heart are within normal limits. Normal liver. Status post cholecystectomy with a normal common bile duct. Normal spleen. Normal pancreas. Normal bilateral adrenal glands. Normal right kidney. Normal left kidney. Normal visualized stomach. Normal small intestine. Diverticulosis of the colon without evidence of acute diverticulitis. The appendix is not included in the dixtp-xf-datu. Normal abdominal aorta. Normal inferior vena cava. Normal retroperitoneum. No apparent asymmetry of the skin, subcutaneous compartment or abdominal wall musculature on the right side. There does appear to be a shallow scar on the left side. There is a subcutaneous epidural device present posteriorly on the left with the epidural catheter ending in the lower thoracic region. There are diffuse degenerative changes of the visualized lumbar spine. CT/Abdomen WITH IV Contrast IMPRESSION: No visible asymmetry of the right abdominal wall relative to the left allowing for small scar on the left at about waist level. Internally, diverticulosis and status post cholecystectomy. Otherwise normal abdomen CT exam. Electronically Signed: Francine Mace MD at 18:05 EST , Service support ,
[2018-08-31 17:37] LABS: Anion Gap 5 (5-15); BUN 9 mg/dL (7-18); BUN/Creat Ratio 11.1 RATIO (10-20); Calcium,Total 8.6 mg/dL (8.5-10.1); Chloride 105 mmol/L (98-107); Creatinine, Serum 0.81 mg/dL (0.70-1.30); EST Glomerular Filtration Rate 105 mL/min (>60); Est Glom Filt Rate - Afr Amer 127 mL/min (>60); Glucose 110 mg/dL (74-106); Potassium 4.1 mmol/L (3.5-5.1); Sodium Level 139 mmol/L (136-145)
--- OUTSIDE RECORDS SUMMARY | 2018-10-17 20:44 | XMS RPT_ITS ---
:1960 Author Organization OHIP Support Name Relationship Address Phone D Unavailable Unavailable Unavailable SARAH COOLELE Unavailable [address] + [place] [address] D Unavailable Unavailable Unavailable SARAH COOLELE Unavailable [address] + [place] [address] D Unavailable Unavailable Unavailable SARAH COOLELE Unavailable [address] + [place] [address] D Unavailable Unavailable Unavailable LIANA COOL Unavailable [address] + [place] [address] D Unavailable Unavailable Unavailable SARAH COOLELE Unavailable [address] + [place] [address] D Unavailable Unavailable Unavailable SARAH COOLELE Unavailable [address] + [place] [address] D Unavailable Unavailable Unavailable SARAH COOLELE Unavailable [address] + [place] [address] D Unavailable Unavailable Unavailable LIANA COOL Unavailable [address] + [place] [address] D Unavailable Unavailable Unavailable SARAH COOLELE Unavailable [address] + [place] [address] D Unavailable Unavailable Unavailable SARAH COOLELE Unavailable [address] + [place] [address] D Unavailable Unavailable Unavailable SARAH COOLELE Unavailable [address] + [place] [address] D Unavailable Unavailable Unavailable SARAH COOLELE Unavailable [address] + [place] [address] D Unavailable Unavailable Unavailable SARAH COOLELE Unavailable [address] + [place] [address] D Unavailable Unavailable Unavailable MARY, LIANA Unavailable [address] + [place] [address] D Unavailable Unavailable Unavailable MARY, LIANA Unavailable [address] + [place] [address] D Unavailable Unavailable Unavailable MARY, LIANA Unavailable [address] + [place] [address] D Unavailable Unavailable Unavailable MARY, LIANA Unavailable [address] + [place] [address] MARY, LIANA Unavailable Unavailable Unavailable MARY, YONATHAN Unavailable Unavailable Unavailable KARLA, LAVERNE Unavailable Unavailable Unavailable MARY, LIANA Unavailable Unavailable Unavailable MARY, YONATHAN Unavailable Unavailable Unavailable KARLA, LAVERNE Unavailable Unavailable Unavailable MARY, LIANA Unavailable Unavailable Unavailable MARY, YONATHAN Unavailable Unavailable Unavailable KARLA, LAVERNE Unavailable Unavailable Unavailable D Unavailable Unavailable Unavailable MARY, LIANA Unavailable [address] + [place] [address] D Unavailable Unavailable Unavailable MARY, LIANA Unavailable [address] + [place] [address] D Unavailable Unavailable Unavailable MARY, LIANA Unavailable [address] + [place] [address] D Unavailable Unavailable Unavailable MARY, LIANA Unavailable [address] + [place] [address] D Unavailable Unavailable Unavailable MARY, LIANA Unavailable [address] + [place] [address] D Unavailable Unavailable Unavailable MARY, LIANA Unavailable [address] + [place] [address] MARY, LIANA Unavailable Unavailable Unavailable MARY, YONATHAN Unavailable Unavailable Unavailable KARLA, LAVERNE Unavailable Unavailable Unavailable D Unavailable Unavailable Unavailable MARY, LIANA Unavailable [address] + [place] [address] D Unavailable Unavailable Unavailable MARY, LIANA Unavailable [address] + [place] [address] MARY, LIANA Unavailable Unavailable Unavailable MARY, YONATHAN Unavailable Unavailable Unavailable KARLA, LAVERNE Unavailable Unavailable Unavailable MARY, LIANA Unavailable Unavailable Unavailable MARY, YONATHAN Unavailable Unavailable Unavailable KARLA, LAVERNE Unavailable Unavailable Unavailable D Unavailable Unavailable Unavailable MARY, LIANA Unavailable [address] + [place] [address] MARY, LIANA Unavailable Unavailable Unavailable MARY, YONATHAN [...] Unavailable MARY, LIANA Unavailable [address] + [place] [address] Care Team Providers Name Role Phone MCGREGOR, [...] Attending Unavailable Cebul, Ashutosh Referring Unavailable Brown, Alekasndr Primary Care Unavailable Brown, Aleksandr Attending Unavailable [...] Unknown M65.9 - Synovitis Aleksandr Duarte Active [place] and tenosynovitis, Community unspecified / Hospital M65.9(ICD-10) Repository 08/31/2018 Unknown R10.9 - Unspecified Cebul, Ashutosh Active [place] abdominal pain / Community R10.9(ICD-10) Hospital Repository 08/25/2018 Unknown C67.9 - Malignant Kin, Active [place] neoplasm of bladder, Wendy Graham Community unspecified / Hospital C67.9(ICD-10) Repository 09/09/2018 Unknown G56.01 - Carpal Cebul, Ashutosh Active [place] tunnel syndrome, Community right upper limb / Hospital G56.01(ICD-10) Repository 08/18/2018 Unknown G89.18 - Other acute Cebul, Ashutosh Active [place] postprocedural pain Community / G89.18(ICD-10) Hospital Repository 08/25/2018 Unknown I10 - Essential Tamika, [place] Active [place] (primary) Community hypertension / Hospital I10(ICD-10) Repository 07/26/2018 Unknown G56.03 - Carpal Cebul, Ashutosh Active [place] tunnel syndrome, Community bilateral upper Hospital limbs / Repository G56.03(ICD-10) 08/08/2018 Unknown Z45.2 - Encounter Isckarus, Active [place] for adjustment and [place] Community management of Hospital vascular access Repository device / Z45.2(ICD-10) 05/31/2018 Unknown E11.9 - Type 2 Aleksandr Duarte Active [place] diabetes mellitus [facility] without Hospital complications / Repository E11.9(ICD-10) 04/21/2018 Admitting New Patient / HALIE Active [place] diagnosis [phone]() FLORENCIO [facility] Repository 04/04/2018 Admitting Spinal stenosis, ALINA, HATTIE Yu Active [facility] diagnosis cervical region / University M48.02(ICD-10) [facility] Repository 04/04/2018 Admitting Pain in right arm / ALINA, HATTIE Yu Active [facility] diagnosis M79.601(ICD-10) [facility] Repository 04/04/2018 Admitting Pain in left arm / ALINA, HATTIE Yu Active [facility] diagnosis M79.602(ICD-10) [facility] Repository 04/04/2018 Admitting Carpal tunnel ALINA, HATTIE Yu Active [facility] diagnosis syndrome, right University upper [facility] G56.01(ICD-10) Center Repository 04/04/2018 Admitting Carpal tunnel ALINA, HATTIE Yu Active [facility] diagnosis syndrome, left upper University limb / [facility] G56.02(ICD-10) Center Repository 03/15/2018 Unknown E83.119 - Isckarus, Active [place] Hemochromatosis, [facility] unspecified / Hospital E83.119(ICD-10) Repository 05/04/2018 Unknown R53.1 - Weakness / Mcgregor, Safdar Active [place] R53.1(ICD-10) [facility] Repository 03/02/2018 Unknown E11.8 - Type 2 Aleksandr Duarte Active [place] diabetes mellitus [facility] with unspecified Hospital complications / Repository E11.8(ICD-10) 01/31/2018 Unknown Z98.1 - Arthrodesis SHIV BRANDT Active [place] status / Community Z98.1(ICD-10) Hospital Repository 01/31/2018 Unknown Z72.0 - Tobacco use SHIV BRANDT Active [place] / Z72.0(ICD-10) [facility] Repository 01/31/2018 Unknown M54.12 - SHIV BRANDT Active [place] Radiculopathy, [facility] cervical region / Hospital M54.12(ICD-10) Repository 01/06/2018 Unknown Z85.51 - Personal Isckarus, Active [place] history of malignant [facility] neoplasm of bladder Hospital / Z85.51(ICD-10) Repository 01/06/2018 Unknown F17.200 - Nicotine Isckarus, Active [place] dependence, [facility] unspecified, Hospital uncomplicated / Repository F17.200(ICD-10) 01/04/2018 Admitting Radiculopathy, SHAGGY MCGREGOR Active [facility] diagnosis cervical region / University M54.12(ICD-10) [facility] Repository 01/25/2017 Admitting Tobacco use / FELIX MCGREGORDAR Active [facility] diagnosis Z72.0(ICD-10) [facility] Repository 07/11/2015 Active Hereditary NA Active [place] hemochromatosis / Clinic Main E83.110(ICD-10) [place] Repository 12/13/2017 Active Unknown / NA Active [place] UNK(Unknown) Clinic Main [place] Repository 11/30/2017 Admitting Surgical Follow-up / GRIMME, [facility] diagnosis 104() [facility] Repository 11/15/2017 Admitting Infection following GRIMME, [facility] diagnosis a procedure, [facility] encounter / [facility] T81.4XXA(ICD-10) Center Repository 11/04/2017 Admitting Other cervical disc FELIX MCGREGORDAR Active [facility] diagnosis [facility], [facility] unspecified cervical [facility] Medical region / Center M50.20(ICD-10) Repository 10/19/2017 Admitting Encounter for other HOFFMANN, Active [facility] diagnosis preprocedural [place] [facility] examination / [facility] Medical Z01.818(ICD-10) Center Repository 10/19/2017 Admitting Essential (primary) HOFFMANN, [facility] diagnosis hypertension / [place] [facility] I10(ICD-10) [facility] Repository 10/19/2017 Admitting Type 2 diabetes HOFFMANN, Active [facility] diagnosis mellitus without [place] [facility] complications (HCC) [facility] Medical / E11.9(ICD-10) Center Repository 10/19/2017 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, [facility]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 (HCC) [place] [facility] University / Z79.4(ICD-10) [facility] Repository 10/19/2017 Admitting Hereditary HOFFMANN, Active [facility] diagnosis hemochromatosis [facility] (HCC) / [facility] E83.110(ICD-10) Center Repository 10/19/2017 Admitting Personal history of HOFFMANN, Active [facility] diagnosis pulmonary embolism / [facility] Z86.711(ICD-10) [facility] Repository 01/19/2017 Admitting Arthrodesis status / HOFFMANN, Active [facility] diagnosis Z98.1(ICD-10) [facility] Repository 2016 Admitting Nicotine dependence, HOFFMANN, Active [facility] diagnosis cigarettes, [facility] uncomplicated / [facility] F17.210(ICD-10) Center Repository 10/19/2017 Admitting Follow-up / 145() SHAGGY MCGREGOR Active [facility] diagnosis [facility] Repository 10/22/2017 Unknown M62.81 - Muscle Shaggy Mcgregor Active [place] weakness Community (generalized) / Hospital M62.81(ICD-10) Repository PROCEDURES PROCEDURES No Procedure Records FoundRESULTS RESULTS INTERNAL MEDICINE Observed: 09/06/2018 Status: F Source: [place] OFFICE VISIT 11:48 AM [facility] REPOSITORY [facility] [address] [place] [address] [place] [address] OFFICE VISIT Date of Service: 09/06/18 MR#: [id number] Acct: [id number] Name: MARYYONATHAN Jr. Rep #: [id number] : 1960 Provider: Aleksandr Duarte DO Age/Sex: 57/M Location: [facility]Y Status: Signed Intake Vital Signs09/06/18 Body Mass [...] PRN #30 tab 09/06/18 [Rx Confirmed 09/06/18] [facility] Medical History Carpal tunnel syndrome on both [...] Route Admin Location Lot Number Expiration DateNDC Crop Nutrition Scientist 20 mg Intra-Articularleft thumb [id number] 05/21/20 8868-2883-29 [facility] Assessment AND Plan Problems 1. Tenosynovitis [...] right-sided abdominal pain. 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 Postoperative changes in the right inguinal area [...] <Electronically signed by Ashutosh Kearns MD> Date Ashuotsh Kearns MD Cosigner Signature: Date (if applicable) CC: Aleksandr Duarte, DO ABDOMEN WITH IV Observed: 08/31/2018 Status: F Source: [place] CONTRAST 3:23 PM [facility] REPOSITORY [facility] [address] [place] [address] Abdomen WITH IV Contrast MR#: [id number] Acct: [id number] Name: YONATHAN COOL Jr. Rep #: [id number] : 1960 M 57 From: Francine Mace MD PCP: Aleksandr Duarte, Status: REG CLI Study: Abdomen WITH IV Contrast Date of Exam: 08/31/18 Exam# [id number] Ordering Dr: Ashutosh Kearns MD STUDY: CT [...] The appendix is not included in the [id number]. Normal abdominal aorta. Normal inferior vena cava. [...] CC: Aleksandr Duarte DO; Ashutosh Kearns MD Gauger Delivery: Signed CBC W/DIFF, AUTOMATED Collected: 08/31/2018 Status: F Source: [place] 3:00 PM [facility] REPOSITORY TYPE CODE TESTS RESULT OUT OF [...] Lymph 2.35 Performed By: #### L100.0100 #### [facility] [address] [place], [address] BASIC METABOLIC Collected: 08/31/2018 Status: F Source: [place] PROFILE (BMP) 3:00 PM [facility] REPOSITORY TYPE CODE TESTS RESULT OUT OF [...] 5 GAP Performed By: #### L500.2500 #### [facility] [address] [place], [address] INTERNAL MEDICINE Observed: 08/31/2018 Status: F Source: [place] OFFICE VISIT 1:30 PM [facility] REPOSITORY [facility] [address] [place] [address] OFFICE VISIT Date of Service: 08/31/18 MR#: [id number] Acct: [id number] Name: YONATHAN COOL Jr. Rep #: [id number] : 1960 Provider: Aleksandr Duarte DO Age/Sex: 57/M Location: [facility] Status: Signed Intake Vital Signs08/31/18 Body Mass [...] as soon as possible surgical referral to [facility]. Coding Level of Care Code Off vis,est,level 3 Diagnoses Abdominal pain of unknown cause R10.9 08/31/18 1330 <Electronically signed by Aleksandr Duarte DO> Date Aleksandr Duarte DO Cosigner Signature: Date (if applicable) CC: SURGERY VISIT REPORT Observed: 08/25/2018 Status: F Source: [place] 3:26 PM [facility] REPOSITORY [facility] [address] [place] [address] [address] [place] [address] OFFICE VISIT Date of Service: 08/24/18 MR#: [id number] Acct: [id number] Name: YONATHAN COOL Jr. Rep #: [id number] : 1960 Provider: Dedra Delgado PA-C Age/Sex: 57/M Location: [facility] Status: Signed Intake Intake Visit Reasons: F/U [...] Status: F Source: [place] CONT 12:14 PM [facility] REPOSITORY [facility] [address] [place] [address] Abdomen/Pelvis without Cont MR#: [id number] Acct: [id number] Name: YONATHAN COOL Jr. 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 Rep #: [id number] : 1960 M 57 From: Reno Arreola MD PCP: Aleksandr Duarte DO Status: REG CLI Study: Abdomen Single View Date of Exam: 08/25/18 Exam# [id number] Ordering Dr: Wendy Sanderson FIRE ALARM MECHANIC-C STUDY: X-RAY - ABDOMEN/PELVIS REASON FOR EXAM: [...] Reno Arreola MD at 15:16 EST Tel [phone], Service support , CC: Aleksandr Duarte DO; Wendy Sanderson NP Gauger Delivery: Signed OPERATIVE REPORT Observed: 08/19/2018 Status: F Source: [place] 1:39 PM [facility] REPOSITORY [facility] Medical Records Department [address] [place] [address] Operative Report 08/18/18 1514 MR#: [id number] Acct: [id number] Name: YONATHAN COOL Jr. Rep #: [id number] : 1960 57 From: Ashutosh Kearns MD PCP: Aleksandr Duarte, DO Status: [facility] Y Location: [facility] Problem List (1) Carpal tunnel syndrome on [...] Anesthesia:: Block,Regional, Local Anesthesiologist: Darell Higuera 08/19/18 5489 <Electronically signed by Ashutosh Kearns MD> Date Ashutosh Kearns MD CC: Aleksandr Duarte DO; Ashutosh Kearns MD Signed DISCHARGE INSTRUCTION Observed: 08/18/2018 Status: F Source: [place] 2:32 PM [facility] REPOSITORY [facility] Medical Records Department [address] [place] [address] Instructions for Home/Discharge Instructions 08/18/18 1324 MR#: [id number] Acct: [id number] Name: YONATHAN COOL Jr. Rep #: [id number] : 1960 57 From: Ashutosh Kearns MD [...] Follow Up With: Ashutosh Kearns MD - [phone] When: Call to make an appointment to be seen on Wednesday08/18/18 1432 <Electronically signed by Ashutosh Kearns MD> Date Ashutosh Kearns MD CC: Aleksandr Duarte, BEDSIDE GLUCOSE Collected: 08/18/2018 Status: F Source: [place] 11:47 AM [facility] REPOSITORY TYPE CODE TESTS RESULT OUT OF RANGE REFERENCE UNITS LAB L501.080 70-110 mg/dL Normal BEDSIDE GLU 105 Result Comment: MANAGEMENT OF PATIENT CARE PER NURSING PROTOCOL Performed By: #### L501.080 #### [facility] Point of Care [address] [place], [place] [address] CBC-COMPLETE BLOOD CNT Collected: 08/15/2018 Status: F Source: [place] NO DIFF 1:04 PM [facility] REPOSITORY Order Comment: Send Results To: EBUL [...] MPV 10.0 Performed By: #### L100.0500 #### [facility] [address] [place], [address] BASIC METABOLIC Collected: 08/15/2018 Status: F Source: [place] PROFILE (BMP) 1:04 PM [facility] REPOSITORY Order Comment: Send Results To: MERCEDES [...] GAP 12 Performed By: #### L500.2500 #### [facility] [address] [place], [address] SURGERY VISIT REPORT Observed: 07/26/2018 Status: F Source: [place] 2:49 PM [facility] REPOSITORY [facility] [address] [place] [address] OFFICE VISIT Date of Service: 07/26/18 MR#: [id number] Acct: [id number] Name: YONATHAN COOL Jr. Rep #: [id number] : 1960 Provider: Ashutosh Kearns MD Age/Sex: 57/M Location: [facility] Status: Signed Intake Vital Signs07/26/18 Height 6 ft 07/26/18 Weight: 244 lb Intake Visit Reasons: Carpal Tunnel/Patient will bring report from [facility] Chief Complaint: 3 MO FU Associate Genetics Professor Required: No Is patient in pain?: No [...] mg PO QDAY 03/02/18 [History Confirmed 07/26/18] [facility] Medical History Carpal tunnel syndrome on both [...] to help. He went down to [facility]. On April 04, 2018 he had nerve [...] similar. Tinel's positive on the right. 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 Rep #: [id number] : 1960 From: Brenden Sauceda MD Age/Sex: [...] under the care of Dr. Virgen at [facility] with control of his iron overload. He transferred his care to [facility] as of December [...] MD PROGRESS Observed: 06/09/2018 Status: COMPLETED Source: [place] 11:01 AM [facility] REPOSITORY HNO ID: [id number] Author: Nelly Roblero Service: (none) Author Type: Service Establishment Attendant Type: Progress Notes Filed: 06/09/2018 11:02 AM Note Text: Yonathan called he has transferred care to Dr.Douglas Duarte. Nelly Roblero MA CNPN Observed: 06/09/2018 Status: COMPLETED Source: [place] 12:00 AM [facility] REPOSITORY Telephone (JAMIEWADIMITRI) YONATHAN COOL ([id number]) 1960 M Date Time Provider Department 06/09/18 BYRN GOULD During your visit today, we recorded the following information about you: Katherine Dior Ma 06/09/2018 2:48 PM Addendum Type of letter/form/fax request - Labs (CBC and Ferritin) 06/08/18 Form received from [facility] and placed on MD desk () for review Route to [place] when form completed for processing Katherine Dior [...] for Visit: Outside Lab Results [753] Cmt: [facility] CBC 06/08/18 Prescriptions as of 06/09/2018 [...] 06/08/2018 Status: F Source: [place] 1:14 PM [facility] REPOSITORY Order Comment: PLEASE CALL [facility] STAT WITH RESULTS @[facility] 6 K TYPE CODE TESTS RESULT OUT OF RANGE REFERENCE UNITS LAB L503.6550 26-388 ng/mL Normal FERRITIN 46 Performed By: #### L503.6550 #### [facility] [address] [place], [address] CBC W/DIFF, AUTOMATED Collected: 06/08/2018 Status: F Source: [place] 1:13 PM [facility] REPOSITORY Order Comment: Reason for Laboratory Test [...] Lymph 2.22 Performed By: #### L100.0100 #### [facility] [address] [place], [address] #### L3300.0700 #### [facility] (refer to report for specific site) refer to report for address and phone number AFP, TUMOR MARKER Collected: 06/08/2018 Status: F Source: [place] 1:13 PM [facility] REPOSITORY Order Comment: Reason for Laboratory Test . Is Patient ? N TYPE CODE TESTS RESULT OUT OF RANGE REFERENCE UNITS LAB L3300.0700 0.0-8.3 ng/mL Normal AFP TUMOR 2.0 2253 Result Comment: Qwiqq ECLIA methodology Performed at: [facility] [address] [id number] Systems Programmer Analyst: Jose Auguste PhD, Phone: [phone] Performed By: #### L100.0100 #### [facility] [address] [place], [place], [address] #### L3300.0700 #### [facility] (refer to report for specific site) refer to report for address and phone number HEMOGLOBIN A1C Collected: 06/08/2018 Status: F Source: [place] 1:13 PM [facility] REPOSITORY TYPE CODE TESTS RESULT OUT OF RANGE REFERENCE UNITS LAB L501.9985 4.2-6.3 % Normal HGB A1C 5.3 Performed By: #### L501.9985 #### [facility] [address] [place], [place], [address] PROGRESS Observed: 06/03/2018 Status: COMPLETED Source: [place] 2:45 PM [facility] REPOSITORY HNO ID: [id number] Author: Nelly Roblero Service: (none) Author Type: Service Establishment Attendant Type: Progress Notes Filed: 06/09/2018 11:02 AM Note Text: I have attempted to contact this patient by phone to return their call, schedule an appointment, discuss lab results, etc. Left message to call back. Nelly Roblero MA INTERNAL MEDICINE Observed: 05/31/2018 Status: F Source: [place] OFFICE VISIT 5:03 PM [facility] REPOSITORY [facility] [place] [address] [place] [address] OFFICE VISIT Date of Service: 05/31/18 MR#: [id number] Acct: [id number] Name: YONATHAN COOL Jr. Rep #: [id number] : 1960 Provider: Aleksandr Duarte DO Age/Sex: 57/M Location: [facility] Status: Signed Intake Vital Signs05/31/18 Height 6 [...] borderline high. 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 since he has [...] complication status: with unspecified complications Diabetes mellitus patrol officer insulin use: with snf use Diabetes mellitus type: type 2 Status post cervical spinal fusion Z98.1 Hereditary hemochromatosis E83.110 Hemochromatosis type: hereditary Tenosynovitis of left hand M65.9 Time Spent (min) 30 05/31/18 1703 <Electronically signed by Aleksandr Duarte DO> Date Aleksandr Duarte DO Cosigner Signature: Date (if applicable) CC: PROGRESS Observed: 05/30/2018 Status: COMPLETED Source: [place] 10:14 AM [facility] REPOSITORY HNO ID: [id number] Author: Nelly Roblero Service: (none) Author Type: Service Establishment Attendant Type: Progress Notes Filed: 06/09/2018 11:02 AM [...] MA CNPTOUTREACH Observed: 05/30/2018 Status: COMPLETED Source: [place] 12:00 AM [facility] REPOSITORY Patient Outreach (FAMPWS) YONATHAN COOL ([id number]) 1960 M Date Time Provider Department 05/30/18 [...] Gupta - Fully Assessed Reason for Visit: [facility]/Care Gap Outreach [[id number]] Primary Visit Diagnosis:Type 2 diabetes mellitus without [...] VISIT REPORT Observed: 03/15/2018 Status: F Source: [place] 3:03 PM [facility] REPOSITORY [facility] [place] [address] OFFICE VISIT Date of Service: 03/15/18 1316 MR#: [id number] Acct: [id number] Name: YONATHAN COOL Jr. Rep #: [id number] : 1960 From: Brenden Sauceda MD Age/Sex: [...] under the care of Dr. Virgen at [facility] with control of his iron overload. He transferred his care to [facility] as of December [...] <Electronically signed by Brenden Sauceda MD> Date Brednen Sauceda MD Cosigner Signature: Date (if applicable) CC: COMPREHENSIVE METABOLIC Collected: 03/08/2018 Status: F Source: [place] JARRELL 2:30 PM [facility] REPOSITORY TYPE CODE TESTS RESULT OUT OF [...] 4 Performed By: #### L500.4050, L501.9985 #### [facility] [address] [place], [address] HEMOGLOBIN A1C Collected: 03/08/2018 Status: F Source: [place] 2:30 PM [facility] REPOSITORY TYPE CODE TESTS RESULT OUT OF RANGE REFERENCE UNITS LAB L501.9985 4.2-6.3 % Normal HGB A1C 5.6 Performed By: #### L500.4050, L501.9985 #### [facility] [address] [place], [address] CBC W/DIFF, AUTOMATED Collected: 03/08/2018 Status: F Source: [place] 2:25 PM [facility] REPOSITORY Order Comment: Reason for Laboratory Test [...] Performed By: #### L100.0100, L503.6030, L503.6550 #### [facility] [address] [facility] [id number] IRON+IRON BINDING Collected: 03/08/2018 Status: F Source: [facility] 2:25 PM [facility] REPOSITORY Order Comment: Reason for Laboratory Test . TYPE CODE TESTS RESULT OUT OF RANGE REFERENCE UNITS LAB L503.6075 250-450 ug/dL TIBC Normal 339 LAB L503.6150 65-175 ug/dL Low IRON 35 LAB L503.6250 15.0-55.0 % Low IRON SATURATION 10.3 Performed By: #### L100.0100, L503.6030, L503.6550 #### [facility] [address] [place], [place], [address] FERRIT[place] Collected: 03/08/2018 Status: F Source: [place] 2:25 PM [facility] REPOSITORY Order Comment: Reason for Laboratory Test . TYPE CODE TESTS RESULT OUT OF REFERENCE UNITS RANGE LAB L503.6550 26-388 ng/mL Low FERRITIN 16 Performed By: #### L100.0100, L503.6030, L503.6550 #### [facility] [address] [place], [address] INTERNAL MEDICINE Observed: 03/02/2018 Status: F Source: [place] OFFICE VISIT 3:45 PM [facility] REPOSITORY [facility] [address] [place] [address] [place] [address] OFFICE VISIT Date of Service: 03/02/18 MR#: [id number] Acct: [id number] Name: YONATHAN COOL Jr. 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 Performed By: #### L350.1000 #### [facility] [address] [place], [address] MISCELLANEOUS LAB Collected: 02/15/2018 Status: F Source: [place] PROCEDURE 3:45 PM [facility] REPOSITORY Order Comment: Test(s) Ordered: FISH [id number] TYPE CODE TESTS RESULT OUT OF RANGE REFERENCE UNITS LAB L801.1541 Normal [facility] LAB TEST Result Comment: Scanned image report available in EMR Performed By: #### L801.1541 #### [facility] [address] [place], [address] CYTOSPIN ON FLUID Observed: 02/15/2018 Status: F Source: [place] 12:00 AM [facility] REPOSITORY Patient: YONATHAN COOL Jr. : 1960 (57/M) Acct Num: [id number] Phys: Linda BENTLEY,Jose Fortune Unit Num: [id number] Loc: LABSPEC Specimen: [id number] Received: 02/15/18 - 1545 Spec Type: CYSPIN FL TISSUES TISSUES: Urine CYTOLOGY GROSS Received is 25 ml of cloudy yellow fluid labeled with the patient's name and and designated per the requisition as urine. Submitted for cytology preparation. / 02/16/18 TC:5 CPT: 67446 CYTOLOGY STUDY Slides are reviewed. The specimen predominantly consists of benign squamous cells and amorphous acellular material. DIAGNOSIS CYTOLOGY Urine for cytology (cytospin): Negative for malignant cells. SJ:carlotta 02/17/18 HEADER OPERATION: Not noted PRE-OP DIAGNOSIS: C67.9 TISSUE SUBMITTED: Urine for cytology Signed Jason Murrell 02/17/18 <signature on file> Performed By: #### PCYSPIN #### [facility] [address] [facility] [place], [address] SPINE CERVICAL Observed: 01/31/2018 Status: F Source: [place] WITHOUT CONTRAS 2:48 PM [facility] REPOSITORY [facility] Services [address] [place] [address] Spine Cervical without Contras MR#: [id number] Acct: [id number] Name: YONATHAN COOL Peri Camp. Rep #: [id number] : 1960 M 57 From: Camron Melendez MD PCP: Xavier Gould MD Status: REG CLI Study: Spine Cervical without Contras Date of Exam: 01/31/18 Exam# [id number] Ordering Dr: IRAIDA HARRINGTON STUDY: CT CERVICAL [...] , CC: IRAIDA HARRINGTON; Xavier Gould MD Gauger Delivery: Signed ONCOLOGY VISIT REPORT Observed: 01/11/2018 Status: F Source: [place] 11:59 AM [facility] REPOSITORY [facility] [place] [address] OFFICE VISIT Date of Service: 01/11/18 1131 MR#: [id number] Acct: [id number] Name: YONTAHAN COOL Rep #: [id number] : 1960 From: Brenden Sauceda MD Age/Sex: [...] under the care of Dr. Virgen at [facility] with control of his iron overload. He is transferring his care to [facility] as of December [...] MD LIVER Observed: 01/06/2018 Status: F Source: [place] 7:36 AM [facility] REPOSITORY [facility] Services [address] [place] [address] Liver MR#: [id number] Acct: [id number] Name: YONATHAN COOL Rep #: [id number] : 1960 M 57 From: Reno Arreola MD PCP: Xavier Gould MD Status: REG CLI Study: Liver Date of Exam: 01/06/18 Exam# [id number] Ordering Dr: Brenden Sauceda MD STUDY: ABDOMINAL [...] Reno Arreola MD at 10:24 EDT Tel [phone], Service support , CC: Xavier Gould MD; Brenden Sauceda MD Gauger Delivery: Signed LOW DOSE CT LUNG Observed: 01/06/2018 Status: F Source: [place] SCREENING 7:10 AM [facility] REPOSITORY [facility] Imaging Services [address] [place] [address] Lung Screening MR#: [id number] Acct: [id number] Name: YONATHAN COOL Rep #: [id number] : 1960 M 57 From: Reno Arreola MD PCP: Xavier Gould MD Status: REG CLI Study: Low Dose CT Lung Screening Date of Exam: 01/06/18 Exam# [id number] Ordering Dr: Brenden Sauceda MD STUDY: LOW [...] Reno Arreola MD at 10:30 EDT Tel [phone], Service support , CC: Xavier Gould MD; Brenden Sauceda MD Gauger Delivery: Signed XR SPINE CERVICAL 2 Observed: 01/04/2018 Status: F Source: [facility] 9:07 AM [facility] REPOSITORY EXAM: XR SPINE CERVICAL 2 VIEWS, [...] to C7 Observed: 12/31/2017 Status: COMPLETED Source: [place] 12:00 AM [facility] REPOSITORY Telephone (FPWADS) YONATHAN COOL ([id number]) 1960 M Date Time Provider Department 12/31/17 [...] F Source: [place] Padilla PT 6:44 PM [facility] REPOSITORY [facility] [address] [place] [address] [address] [place] [address] Fax REHABILITATION SERVICES INITIAL EVALUATION MR#: [id number] Acct: [id number] Name: YONATHAN COOL Rep #: [id number] : 1960 57 From: Yobany Thornton PT, Cert. T, OCS Referring DrSanta: Shaggy Mcgregor MD Status: REG RCR Insurance: [facility] [employer] SELF PAY INSURANCE Patient's Visit Information YONATHAN [...] s/p cervical spinal fusion Nov 03 at [facility] done by DR Crawford. Patient had posterior [...] 3+/5. shoulder lateral/anterior 3+/5,bicep/tricep 4-/5,wrist flexion/extension 4-/5. 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 Please let me know [...] 12/30/2017 Status: F Source: [place] 11:10 AM [facility] REPOSITORY Order Comment: Reason for Laboratory Test [...] Lymph 1.53 Performed By: #### L100.0100 #### [facility] [address] [place], [address] #### L3300.0700 #### [facility] (refer to report for specific site) refer to report for address and phone number AFP, TUMOR MARKER Collected: 12/30/2017 Status: F Source: [place] 11:10 AM [facility] REPOSITORY Order Comment: Reason for Laboratory Test . Is Patient ? N TYPE CODE TESTS RESULT OUT OF RANGE REFERENCE UNITS LAB L3300.0700 0.0-8.3 ng/mL Normal AFP TUMOR 1.9 2253 Result Comment: Satya ECLIA methodology Performed at: [address] [id number] Systems Programmer Analyst: Jose Auguste PhD, Phone: [phone] Performed By: #### L100.0100 #### [facility] [address] [facility] [place], [address] #### L3300.0700 #### [facility] (refer to report for specific site) refer to report for address and phone number COMPREHENSIVE METABOLIC Collected: 12/30/2017 Status: F Source: [facility] 11:10 AM [facility] REPOSITORY Order Comment: Reason for Laboratory Test [...] Performed By: #### L500.4050, L503.6030, L503.6550 #### [facility] [place], [address] IRON+IRON BINDING Collected: 12/30/2017 Status: F Source: [place] CAPACITY 11:10 AM [facility] REPOSITORY Order Comment: Reason for Laboratory Test . TYPE CODE TESTS RESULT OUT OF RANGE REFERENCE UNITS LAB L503.6075 250-450 ug/dL TIBC Normal 382 LAB L503.6150 65-175 ug/dL Low IRON 38 LAB L503.6250 15.0-55.0 % Low IRON SATURATION 9.9 Performed By: #### L500.4050, L503.6030, L503.6550 #### [facility] [address] [place], [address] FERRITIN Collected: 12/30/2017 Status: F Source: [place] 11:10 AM [facility] REPOSITORY Order Comment: Reason for Laboratory Test . TYPE CODE TESTS RESULT OUT OF RANGE REFERENCE UNITS LAB L503.6550 26-388 ng/mL Normal FERRITIN 26 Performed By: #### L500.4050, L503.6030, L503.6550 #### [facility] [address] [place], [address] ONCOLOGY HISTORY AND Observed: 12/30/2017 Status: F Source: [place] PHYSICAL 10:58 AM [facility] REPOSITORY [facility] Medical Records Department [address] [place] [address] History and Physical 12/30/17 1005 MR#: [id number] Acct: [id number] Name: YONATHAN COOL Rep #: [id number] : 1960 57 From: Brenden Sauceda MD [...] under the care of Dr. Virgen at [facility] with control of his iron overload. He is transferring his care to [facility] as of December 2017. 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 [place] HEMOGLOBIN Collected: 12/13/2017 Status: F Source: [place] 2:38 PM [facility] REPOSITORY TYPE CODE TESTS RESULT OUT OF REFERENCE UNITS RANGE LAB WHGB 13.0-17.0 g/dL [place] Hemoglobin 14.1 Result Comment: Test performed at: [address] [place] [address]. CNPN Observed: 12/13/2017 Status: COMPLETED Source: [place] 12:00 AM [facility] REPOSITORY Telephone (SARA) YONATHAN COOL ([id number]) 1960 M Date Time Provider Department 12/13/17 [...] Spoke with pt., his insurance change from [employer] to [employer]. He just picked up [...] LPN 01/19/2018 4:40 PM Signed Spoke with [facility]. No prior auth is needed. 90 day [...] GLUCOSE BATTERY Collected: 11/08/2017 Status: F Source: [facility] 11:50 AM [facility] REPOSITORY TYPE CODE TESTS RESULT OUT OF REFERENCE UNITS RANGE LAB GLUP 70-99 mg/dL High Glucose (poc 138 device) Result Comment: No BRAVE per RN: PATIENT TYPE LAB PCSTYP *POC Capillary SAMPLE TYPE Blood *POC GLUCOSE BATTERY Collected: 11/08/2017 Status: F Source: [facility] 8:07 AM [facility] REPOSITORY TYPE CODE TESTS RESULT OUT OF REFERENCE UNITS RANGE LAB GLUP 70-99 mg/dL High Glucose (poc 111 device) Result Comment: No BRAVE per RN: PATIENT TYPE LAB PCSTYP *POC Capillary SAMPLE TYPE Blood *POC GLUCOSE BATTERY Collected: 11/07/2017 Status: F Source: [facility] 4:33 PM [facility] REPOSITORY TYPE CODE TESTS RESULT OUT OF REFERENCE UNITS RANGE LAB GLUP 70-99 mg/dL Glucose (poc 97 device) Result Comment: No BRAVE per RN: PATIENT TYPE LAB PCSTYP *POC Capillary SAMPLE TYPE Blood *POC GLUCOSE BATTERY Collected: 11/07/2017 Status: F Source: [facility] 11:32 AM [facility] REPOSITORY TYPE CODE TESTS RESULT OUT OF REFERENCE UNITS RANGE LAB GLUP 70-99 mg/dL High Glucose (poc 102 device) Result Comment: No BRAVE per RN: PATIENT TYPE LAB PCSTYP *POC Capillary SAMPLE TYPE Blood *POC GLUCOSE BATTERY Collected: 11/07/2017 Status: F Source: [facility] 7:38 AM [facility] REPOSITORY TYPE CODE TESTS RESULT OUT OF REFERENCE UNITS RANGE LAB GLUP 70-99 mg/dL High Glucose (poc 111 device) Result Comment: No BRAVE per RN: PATIENT TYPE LAB PCSTYP *POC Capillary SAMPLE TYPE Blood CHM7,CA Collected: 11/07/2017 Status: F Source: [facility] 2:35 AM [facility] REPOSITORY TYPE CODE TESTS RESULT OUT OF [...] By: #### Ara, IPB, MGO #### [facility] [address] [place] [address] [place] [address] INORGANIC PHOSPHATE Collected: 11/07/2017 Status: F Source: [facility] 2:35 AM [facility] REPOSITORY TYPE CODE TESTS RESULT OUT OF REFERENCE UNITS RANGE LAB IP 2.2-4.6 mg/dL Inorg Phosphate 2.3 Result Comment: SLIGHTLY HEMOLYZED Performed By: #### Ara, IPB, MGO #### [facility] [address] [place] [address] [place] [address] MAGNESIUM Collected: 11/07/2017 Status: F Source: [facility] 2:35 AM [facility] REPOSITORY TYPE CODE TESTS RESULT OUT OF REFERENCE UNITS RANGE LAB MG 1.6-2.6 mg/dL Magnesium 2.0 Result Comment: SLIGHTLY HEMOLYZED Performed By: #### C7C, IPB, MGO #### [facility] [address] [place], [place] [id number] [facility] [address] [place] [address] *POC GLUCOSE BATTERY Collected: 11/06/2017 Status: F Source: [facility] 8:35 PM [facility] REPOSITORY TYPE CODE TESTS RESULT OUT OF REFERENCE UNITS RANGE LAB GLUP 70-99 mg/dL High Glucose (poc 127 device) Result Comment: No BRAVE per RN: PATIENT TYPE LAB PCSTYP *POC Capillary SAMPLE TYPE Blood *POC GLUCOSE BATTERY Collected: 11/06/2017 Status: F Source: [facility] 4:06 PM [facility] REPOSITORY TYPE CODE TESTS RESULT OUT OF REFERENCE UNITS RANGE LAB GLUP 70-99 mg/dL High Glucose (poc 106 device) Result Comment: No BRAVE per RN: PATIENT TYPE LAB PCSTYP *POC Capillary SAMPLE TYPE Blood XR SPINE CERVICAL 2 Observed: 11/06/2017 Status: F Source: [facility] VIEWS 3:17 PM [facility] REPOSITORY EXAM: XR SPINE CERVICAL 2 VIEWS, [...] GLUCOSE BATTERY Collected: 11/06/2017 Status: F Source: [facility] 11:00 AM [facility] REPOSITORY TYPE CODE TESTS RESULT OUT OF REFERENCE UNITS RANGE LAB GLUP 70-99 mg/dL High Glucose (poc 102 device) Result Comment: No BRAVE per RN: PATIENT TYPE LAB PCSTYP *POC Capillary SAMPLE TYPE Blood *POC GLUCOSE BATTERY Collected: 11/06/2017 Status: F Source: [facility] 7:20 AM [facility] REPOSITORY TYPE CODE TESTS RESULT OUT OF REFERENCE UNITS RANGE LAB GLUP 70-99 mg/dL Glucose (poc 91 device) Result Comment: No BRAVE per RN: PATIENT TYPE LAB PCSTYP *POC Capillary SAMPLE TYPE Blood HEMOGRAM (CBC AND Collected: 11/06/2017 Status: F Source: [facility] [place] 2:06 AM [facility] REPOSITORY TYPE CODE TESTS RESULT OUT OF [...] #### HEMAra MATIAS, IPMl, MGO #### [place] [address] CHM7,CA Collected: 11/06/2017 Status: F Source: [facility] 2:06 AM [facility] REPOSITORY TYPE CODE TESTS RESULT OUT OF [...] GFR >60 mL/min/1.73 sqM Est GFR,non >60 Congolese LAB GFRA >60 mL/min/1.73 sqM Est GFR, >60 Performed By: #### HEMOGC, C7C, IPB, MGO #### [facility] [id number] [place] [address] [place] [address] INORGANIC PHOSPHATE Collected: 11/06/2017 Status: F Source: [facility] 2:06 AM [facility] REPOSITORY TYPE CODE TESTS RESULT OUT OF REFERENCE UNITS RANGE LAB IP 2.2-4.6 mg/dL Inorg Phosphate 3.4 Performed By: #### HEMOGC, C7C, IPB, MGO #### [facility] [address] [place] [id number] [place] [address] [place] [address] MAGNESIUM Collected: 11/06/2017 Status: F Source: [facility] 2:06 AM [facility] REPOSITORY TYPE CODE TESTS RESULT OUT OF REFERENCE UNITS RANGE LAB MG 1.6-2.6 mg/dL Magnesium 1.8 Performed By: #### HEMOGC, C7C, IPB, MGO #### [facility] [address] [place] [address] [place] [address] *POC GLUCOSE BATTERY Collected: 11/05/2017 Status: F Source: [facility] 7:42 PM [facility] REPOSITORY TYPE CODE TESTS RESULT OUT OF REFERENCE UNITS RANGE LAB GLUP 70-99 mg/dL Glucose (poc 90 device) Result Comment: No BRAVE per RN: PATIENT TYPE LAB PCSTYP *POC Capillary SAMPLE TYPE Blood *POC GLUCOSE BATTERY Collected: 11/05/2017 Status: F Source: [facility] 3:24 PM [facility] REPOSITORY TYPE CODE TESTS RESULT OUT OF REFERENCE UNITS RANGE LAB GLUP 70-99 mg/dL High Glucose (poc 107 device) Result Comment: No BRAVE per RN: PATIENT TYPE LAB PCSTYP *POC Capillary SAMPLE TYPE Blood *POC GLUCOSE BATTERY Collected: 11/05/2017 Status: F Source: [facility] 11:49 AM [facility] REPOSITORY TYPE CODE TESTS RESULT OUT OF REFERENCE UNITS RANGE LAB GLUP 70-99 mg/dL High Glucose (poc 108 device) Result Comment: No BRAVE per RN: PATIENT TYPE LAB PCSTYP *POC Capillary SAMPLE TYPE Blood *POC GLUCOSE BATTERY Collected: 11/05/2017 Status: F Source: [facility] 11:23 AM [facility] REPOSITORY TYPE CODE TESTS RESULT OUT OF REFERENCE UNITS RANGE LAB GLUP 70-99 mg/dL Glucose (poc 88 device) Result Comment: No BRAVE per RN: PATIENT TYPE LAB PCSTYP *POC Capillary SAMPLE TYPE Blood *POC GLUCOSE BATTERY Collected: 11/05/2017 Status: F Source: [facility] 7:34 AM [facility] REPOSITORY TYPE CODE TESTS RESULT OUT OF REFERENCE UNITS RANGE LAB GLUP 70-99 mg/dL High Glucose (poc 102 device) Result Comment: No BRAVE per RN: PATIENT TYPE LAB PCSTYP *POC Capillary SAMPLE TYPE Blood HEMOGRAM (CBC AND Collected: 11/05/2017 Status: F Source: [facility] PLATELET) 2:36 AM [facility] REPOSITORY TYPE CODE TESTS RESULT OUT OF [...] #### HEMOGC, C7C, IPB, MGO #### [facility] [address] [place] [id number] [place] [address] [address] [place] [address] CHM7,CA Collected: 11/05/2017 Status: F Source: [facility] 2:36 AM [facility] REPOSITORY TYPE CODE TESTS RESULT OUT OF [...] GFR >60 mL/min/1.73 sqM Est GFR,non >60 Congolese LAB GFRA >60 mL/min/1.73 sqM Est GFR, >60 Performed By: #### HEMOGC, C7C, IPB, MGO #### [facility] [address] [place] [address] [place] [address] INORGANIC PHOSPHATE Collected: 11/05/2017 Status: F Source: [facility] 2:36 AM [facility] REPOSITORY TYPE CODE TESTS RESULT OUT OF REFERENCE UNITS RANGE LAB IP 2.2-4.6 mg/dL Inorg Phosphate 3.2 Performed By: #### HEMOGC, C7C, IPB, MGO #### [facility] [address] [place] [address] [place] [address] MAGNESIUM Collected: 11/05/2017 Status: F Source: [facility] 2:36 AM [facility] REPOSITORY TYPE CODE TESTS RESULT OUT OF REFERENCE UNITS RANGE LAB MG 1.6-2.6 mg/dL Magnesium 1.6 Performed By: #### HEMOGC, C7C, IPB, MGO #### [facility] [address] [place] [address] [place] [address] *POC GLUCOSE BATTERY Collected: 11/04/2017 Status: F Source: [facility] 7:37 PM [facility] REPOSITORY TYPE CODE TESTS RESULT OUT OF REFERENCE UNITS RANGE LAB GLUP 70-99 mg/dL Glucose (poc 98 device) Result Comment: No BRAVE per RN: PATIENT TYPE LAB PCSTYP *POC Capillary SAMPLE TYPE Blood *POC GLUCOSE BATTERY Collected: 11/04/2017 Status: F Source: [facility] 2:35 PM [facility] REPOSITORY TYPE CODE TESTS RESULT OUT OF REFERENCE UNITS RANGE LAB GLUP 70-99 mg/dL High Glucose (poc 104 device) Result Comment: Notified RNread back No BRAVE per RN: PATIENT TYPE LAB PCSTYP *POC Capillary SAMPLE TYPE Blood *POC GLUCOSE BATTERY Collected: 11/04/2017 Status: F Source: [facility] 1:43 PM [facility] REPOSITORY TYPE CODE TESTS RESULT OUT OF REFERENCE UNITS RANGE LAB GLUP 70-99 mg/dL High Glucose (poc 109 device) Result Comment: Meets BRAVE per RN: PATIENT TYPE LAB PCSTYP *POC Arterial SAMPLE TYPE *POC GLUCOSE BATTERY Collected: 11/04/2017 Status: F Source: [facility] 12:42 PM [facility] REPOSITORY TYPE CODE TESTS RESULT OUT OF REFERENCE UNITS RANGE LAB GLUP 70-99 mg/dL High Glucose (poc 108 device) Result Comment: Meets BRAVE per RN: PATIENT TYPE LAB PCSTYP *POC Arterial SAMPLE TYPE *POC GLUCOSE BATTERY Collected: 11/04/2017 Status: F Source: [facility] 11:50 AM [facility] REPOSITORY TYPE CODE TESTS RESULT OUT OF REFERENCE UNITS RANGE LAB GLUP 70-99 mg/dL High Glucose (poc 107 device) Result Comment: Meets BRAVE per RN: PATIENT TYPE LAB PCSTYP *POC Arterial SAMPLE TYPE BLD GAS 9 Collected: 11/04/2017 Status: F Source: [facility] 11:04 AM [facility] REPOSITORY TYPE CODE TESTS RESULT OUT OF [...] applicable Performed By: #### GAS9 #### [facility] [id number] [place] [address] [place] [address] BLD GAS 9 Collected: 11/04/2017 Status: F Source: [facility] 10:05 AM [facility] REPOSITORY TYPE CODE TESTS RESULT OUT OF [...] applicable Performed By: #### GAS9 #### [facility] [address] [place] [address] *POC GLUCOSE BATTERY Collected: 11/04/2017 Status: F Source: [facility] 6:55 AM [facility] REPOSITORY TYPE CODE TESTS RESULT OUT OF REFERENCE UNITS RANGE LAB GLUP 70-99 mg/dL High Glucose (poc 128 device) Result Comment: Notified RNread back No BRAVE per RN: PATIENT TYPE LAB PCSTYP *POC Capillary SAMPLE TYPE Blood OT D/C OF NON Observed: 10/22/2017 Status: F Source: [facility] 9:29 AM [facility] REPOSITORY [facility] Occupational Therapy [facility] [address] [place] [address]. [address] [place] [address] Fax REHABILITATION SERVICES DISCHARGE SUMMARY MR#: [id number] Acct: [id number] Name: YONATHAN COOL JR Rep #: [id number] : 1960 56 From: Razia Carreon Referring [...] continue POC. 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 PT to address and [...] PA AND Observed: 10/19/2017 Status: F Source: [facility] 3:51 PM [facility] REPOSITORY EXAM: XR CHEST PA AND LATERAL, 10/19/2017 14:38 PM COMPARISON: 01/09/2017 CLINICAL INDICATIONS: Preoperative evaluation RELEVANT CLINICAL HISTORY: Z01.818:Encounter for other preprocedural examination M50.20:Other cervical disc displacement, unspecified cervical region I10:Essential (primary) hypertension E11.9:Type 2 diabetes mellitus without complications (HCC) Z79.4:[facility] (current) use of insulin (HCC) E83.110:Hereditary hemochromatosis [...] this report. Observed: 10/19/2017 Status: F Source: [facility] TYPE AND CROSS - 2:45 PM [facility] PRE-OP [facility] REPOSITORY ABO/RH(D): O POSITIVE ANTIBODY SCREEN: NEGATIVE UNIT NUMBER: [id number] BLOOD COMPONENT TYPE: Red Cells, Leukoreduced_[id number] STATUS OF UNIT: REL FROM ALLOC TRANSFUSION STATUS: OK TO TRANSFUSE CROSSMATCH RESULT: Electronically Compatible UNIT NUMBER: [id number] BLOOD COMPONENT TYPE: Red Cells, Leukoreduced_[id number] STATUS OF UNIT: REL FROM ALLOC TRANSFUSION STATUS: OK TO TRANSFUSE CROSSMATCH RESULT: Electronically Compatible Performed By: #### XMPO #### [facility] [address] [place] [address] [place] [address] URINALYSIS W REFLEX Collected: 10/19/2017 Status: F Source: [facility] CULTURE -[address] 2:15 PM [facility] REPOSITORY TYPE CODE TESTS RESULT OUT OF RANGE REFERENCE UNITS LAB 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 Clear Appearance Urine Clear LAB SPGR 1.001-1.035 Specific [place] urine 1.020 LAB UGL Negative mg/dL Glucose [...] URINE Mucus Performed By: #### URN1C #### [facility] [address] [place] [address] CBC WITH DIFF Collected: 10/19/2017 Status: F Source: [facility] 2:15 PM [facility] REPOSITORY TYPE CODE TESTS RESULT OUT OF [...] Lymph 2.96 LAB AMONO 0.30-0.82 K/uL Abs [place] 0.70 LAB AEOS 0.04-0.54 K/uL Abs Eos 0.16 LAB ABASO 0.01-0.08 K/uL Abs Baso 0.04 Performed By: #### CBCDFM, CHM6C, HFPC #### [facility] [address] [place], [place] [address] #### PTCC, PTTC #### [facility] [address] [place] [address] [place] [address] PT/INR - [address] Collected: 10/19/2017 Status: F Source: [facility] LAB 2:15 PM [facility] REPOSITORY TYPE CODE TESTS RESULT OUT OF RANGE REFERENCE UNITS LAB PT 11.9-14.2 sec PT 12.6 LAB INR 0.9-1.1 INR 1.0 Performed By: #### CBCDFM, CHM6C, HFPC #### [facility] [address] [place] [address] #### PTCC, PTTC #### [facility] [address] [place] [address] [place] [address] PTT - [address] LAB Collected: 10/19/2017 Status: F Source: [facility] 2:15 PM [facility] REPOSITORY TYPE CODE TESTS RESULT OUT OF RANGE REFERENCE UNITS LAB PTT 24.0-34.3 sec High PTT 35.7 Performed By: #### CBCDFM, CHM6C, HFPC #### [facility] [address] [place] [address] #### PTCC, PTTC #### [facility] [address] [place] [address] [place] [address] [place] [address] ROAD Collected: 10/19/2017 Status: F Source: [facility] LAB 2:15 PM [facility] REPOSITORY TYPE CODE TESTS RESULT OUT OF REFERENCE UNITS RANGE LAB BUN 7-22 mg/dL BUN 13 LAB NA 133-143 mmol/L Sodium 138 LAB K 3.5-5.0 mmol/L Potassium 4.1 LAB CL 98-108 mmol/L Chloride 105 LAB CO2 22-30 mmol/L Carbon Dioxide 27 LAB CREA 0.70-1.30 mg/dL Creatinine 0.91 LAB GAP 7-17 mmol/L Anion Gap 10 LAB GFR >60 mL/min/1.73 sqM Est GFR,non >60 Congolese LAB GFRA >60 mL/min/1.73 sqM Est GFR, >60 Performed By: #### CBCDFM, CHM6C, HFPC #### [facility] [address] [place] [address] #### PTCC, PTTC #### [facility] [address] [place] [id number] [place] [address] [address] [place] [address] HEPATIC FUNCTION Collected: 10/19/2017 Status: F Source: [facility] 2:15 PM [facility] REPOSITORY TYPE CODE TESTS RESULT OUT OF REFERENCE UNITS RANGE LAB ALB 3.5-5.0 g/dL Albumin 4.7 LAB BILD <0.3 mg/dL Bilirubin Direct 0.1 LAB BILT <1.5 mg/dL Bilirubin Total 0.5 LAB ALP 32-126 U/L Alkaline Phosphatase 111 LAB ALT 10-52 U/L ALT 42 LAB AST 14-40 U/L AST 31 LAB TP 6.4-8.3 g/dL Total Protein 7.6 Performed By: #### CBCDFM, CHM6C, HFPC #### [facility] [address] [place] [address] #### PTCC, PTTC #### [facility] [address] [place] [address] [address] [place] [address] NICOTINE(COTININE),URINE Collected: Status: F Source: [facility] 10/19/2017 2:15 PM [facility] REPOSITORY TYPE CODE TESTS RESULT OUT OF REFERENCE UNITS RANGE LAB NICOTU 500 ng/mL POSITIVE Nicotine(Co tinine),Uri ne Performed By: #### NICOTU #### [facility] [address] [place] [address] [place] [address] Observed: 10/19/2017 Status: F Source: [facility] SCREEN: RESP STAPH 2:15 PM [facility] (HIGH RISK SURGERY) [facility]: Negative Negative This test [...] by the Clinical Microbiology Laboratory at [facility]. It has not b een cleared or approved by the FDA.The laboratory is regulated under CLIA as qualified to perform high-complexity testing. This test is used for clinical purposes. It should not be regarded as investigational or for research. Performed By: #### SCRSB #### [address] [address] CNPN Observed: 10/15/2017 Status: COMPLETED Source: [place] 12:00 AM [facility] REPOSITORY Telephone (BaiduDS) YONATHAN COOL ([id number]) 1960 M Date Time Provider Department 10/15/17 BRYN GOULD [employer] During your visit today, we recorded the following information about you: Ezequiel Onur 10/15/2017 11:00 AM Signed Received 10/14/[address]. Talley in [place]. Placed in pcps inbox for review. updated. Route to [place] for scanning. Sisi Tipton Ma 10/22/2017 12:00 [...] Assessed Reason for Visit: Diabetic Eye Exam [9827] Cmt: Dr. Talley - [place] 10/14/17 Prescriptions as of 10/15/2017 Sig: INSULIN [...] Encounter Status:Closed by EZEQUIEL MURPHY on 10/15/17 RE-EVALUATION - PT (1) Observed: 04/21/2017 Status: F Source: [place] 12:09 PM [facility] REPOSITORY [facility] Physical Therapy [facility] [address] [facility] [place] [address] Fax REEVALUATION / MEDICARE RECERTIFICATION PHYSICAL THERAPY MR#: [id number] Acct: [id number] Name: YONATHAN COOL JR Rep #: [id number] : 1960 56 From: Yobany Thornton PT, Cert. T, OCS Referring DrSanta: Shaggy Mcgregor MD Status: REG RCR Insurance: [facility] [employer] MAN Mcgregor MD, It has been my [...] de.ltoid. hip flexion 3+/5,quads/hams 4-/5,ankle DF 4-/5. 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 Plan Plan: CONT [...] do not hesitate to contact me at [phone] by phone or if you have questions [...] SEVERITY SOURCE 08/31/2018 Drug fluoxetine Vomiting [place] Allergy/416 HCl/S043106064(R Community 457449([facility] ED CT) Repository 08/31/2018 Drug lorazepam/G82111 Other [place] Allergy/416 1460(RXNORM) [facility] 164190([facility] ED CT) Repository 08/31/2018 Drug morphine/W471295 Rash [place] Allergy/416 545(RXNORM) [facility] 961546([facility] ED CT) Repository 08/31/2018 Drug cephalexin/F0060 Nausea/Vom/Diarrh [place] Allergy/416 89503(RXNORM) [facility] 753436([facility] ED CT) Repository 08/31/2018 Drug pregabalin/F0060 HYPOTENSION [place] Allergy/416 78648(RXNORM) [facility] 819028([facility] ED CT) Repository 12/13/2017 DRUG LORAZEPAM Mental Chg [facility] INGREDI/419 [address] [place] 019027(SNOM Repository ED CT) 03/11/2016 DRUG CEPHALEXIN Vomiting High [facility] INGREDI/419 [place] 069516(SNOM Repository ED CT) 12/12/2012 DRUG FLUOXETINE HCL GI UPSET [facility] INGREDI/[address] [place] 389072(SNOM Repository ED CT) 09/16/2011 DRUG MORPHINE RASH [facility] INGREDI/419 [address] [place] 031322(SNOM Repository ED CT) 05/31/2009 DRUG [facility]ALIN [facility] [place] 325146(SNOM Repository ED CT) ENCOUNTERS ENCOUNTERS ADMIT/DISCHARGE ACCOUNT NUMBER ADMITTING ENCOUNTER LOCATION SOURCE CLASS 10/05/2018 [id number] Ambulatory [facility] ding:CT Repository 09/06/2018/09/06/20 [id number] Ambulatory BMSBuilding: [place] 18 BMS.[facility] Repository 09/05/2018 [id number] Ambulatory [facility] ding:US Repository 08/31/2018 [id number] Ambulatory [facility] ding:CT Repository 08/31/2018 [id number] Ambulatory [facility] ding:MEDOUTP Repository 08/31/2018/08/31/20 [id number] Ambulatory BMSBuilding: [place] 18 BMS.[facility] Repository 08/31/2018/08/31/20 [id number] Ambulatory BMSBuilding: [place] 18 BMS.[facility] Repository 08/25/2018 [id number] Ambulatory [facility] ding:RAD Repository 08/24/2018/08/24/20 [id number] Ambulatory BMSBuilding: [place] 18 BMS.[facility] Repository 08/18/2018/08/18/20 [id number] Ambulatory BMSBuilding: [place] 18 BMS.CF.[facility] Repository 08/18/2018/08/18/20 [id number] Ambulatory [address] ding[facility] : AC18 08/15/2018 [id number] Ambulatory BMSBuilding: [place] [facility] Repository 07/27/2018 [id number] Ambulatory BMSBuilding: [place] BMS.[facility] Repository 07/26/2018/07/26/20 [id number] Ambulatory BMSBuilding: [place] 18 BMS.[facility] Repository 07/19/2018 [id number] Ambulatory [facility] ding:ONC Repository 06/14/2018 [id number] Ambulatory BMSBuilding: [place] BMS.CF.[facility] Repository 05/31/2018/05/31/20 [id number] Ambulatory BMSBuilding: [place] 18 BMS.[facility] Repository 04/21/2018 [id number] Ambulatory Building:[facility] Repository 04/04/2018 [id number] Ambulatory Building:[facility] Repository 03/16/2018 [id number] Ambulatory Building:[facility] Repository 03/15/2018 [id number] Ambulatory BMSBuilding: [place] BMS.CF.[facility] Repository 03/08/2018/03/08/20 [id number] Emergency [address] ding:ED Repository 03/03/2018/03/03/20 [id number] Ambulatory [address] ding:PT Repository 03/02/2018/03/02/20 [id number] Ambulatory BMSBuilding: [place] 18 BMS.[facility] Repository 02/15/2018 [id number] Ambulatory [facility] ding:LABSPEC Repository 01/31/2018 [id number] Ambulatory [facility] ding:CT Repository 01/31/2018 [id number] Ambulatory Building:[facility] Repository 01/11/2018 [id number] Ambulatory BMSBuilding: [place] BMS.CF.[facility] Repository 01/06/2018 [id number] Ambulatory [facility] ding:CT Repository 01/04/2018 [id number] Ambulatory Building:[facility] Repository 01/04/2018 [id number] Ambulatory Building:CRD [facility] Repository 12/30/2017 [id number] Ambulatory BMSBuilding: [place] BMS.CF.[facility] Repository 12/13/2017 [id number] Ambulatory [facility] Repository 12/13/2017/12/15/19 [id number] Ambulatory [address] Repository 12/13/2017/12/14/19 [id number] Ambulatory [address] Repository 11/30/2017 [id number] Ambulatory Building:[facility] Repository 11/15/2017 [id number] Ambulatory Building:[facility] Repository 11/04/2017/11/08/19 [id number] SHAGGY MCGREGOR Inpatient Building:[place] [address] Encounter Room: [place] [address]Bed: A [facility] Repository 10/19/2017 [id number] Ambulatory Building:KJL [facility] Repository 10/19/2017 [id number] Ambulatory Building:KRI [facility] Repository 10/19/2017 [id number] Ambulatory Building:OPA [facility] Repository 10/19/2017 [id number] Ambulatory Building:[facility] Repository 08/02/2017/08/02/20 [id number] Ambulatory [place] [facility] ding:PT Repository PAYERS PAYERS ENCOUNTER GUARANTOR PAYER SUBSCRIBER SOURCE 10/05/2018 YONATHAN COOL Primary YONATHAN [address] Insurance:[employer] [facility] CHETAN [facility] [id number] Number: Repository [address]Anq: [phone] [id number] [phone] () Date: [employer]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 [address] [address]FB: 10/05/2018 Secondary NOT GIVENUNK [place] Insurance:SELF PAY Community [facility] Number: Effective Repository Date:2018-09-21 09/06/2018 YONATHAN COOL Primary YONATHAN COOL [place] [address] Insurance:MEDICARE Jr.: Community [place] [address] PART A [facility] [id number] Number: Repository [address]Dkt: 330 [id number] [phone] () Date:2018-09-01 09/06/2018 Secondary YONATHAN COOL [place] Insurance:AETNA LIFE Jr.: Community INSURANCE [id number] Number: Repository [id number] Date:0508-75-52DH [id number] [place] [address]UA: 09/06/2018 Tertiary NOT GIVENUNK [place] Insurance:SELF PAY [facility] Number: Effective Repository Date:2018-09-05 09/05/2018 YONATHAN COOL Primary LIANA Tong [place] [address] Insurance:AETNAPolicy HOBARTDOB: Community [place] [address] Number: [id number] [id number] Repository [address]Yhk: (330) Date:8210-63-21EJ [phone] () [id number] MILYROXANN [address]MP: 09/05/2018 Secondary YONATHAN COOL [place] Insurance:MEDICARE Jr.: Community PART A [facility] [id number] Hospital Number: Repository [id number] Date:2018-08-08 09/05/2018 Tertiary NOT GIVENUNK [place] Insurance:SELF PAY [facility] Number: Effective Repository Date:2018-08-08 08/31/2018 YONATHAN COOL Primary LIANA L [place] [address] Insurance:AETNAPolicy HOBARTDOB: Community [address] Number: [id number], [place] [id number] Repository [address]Zgm: ([phone]) Date:7448-36-48ZF [phone] () [id number] MILYROXANN [address]YR: 08/31/2018 Secondary YONATHAN COOL [place] Insurance:MEDICARE Jr.: Community PART A BPolicy [id number] Hospital Number: Repository [id number] Date:2018-08-31 08/31/2018 Tertiary NOT GIVENUNK [place] Insurance:SELF PAY [facility] Number: Effective Repository Date:2018-08-31 08/31/2018 YONATHAN COOL Primary LIANA L [place] [address] Insurance:AETNAPolicy HOBARTDOB: [facility] DRAPPLE Number: [id number] Hill, [place] [id number] Repository [address]Nqi: 330) Date:0579-92-64GA [phone] () [place] [address]IW: 08/31/2018 Secondary YONATHAN COOL [place] Insurance:MEDICARE Jr.: Community PART A [facility] [id number] Hospital Number: Repository [id number] Date:2018-08-31 08/31/2018 Tertiary NOT GIVENUNK [place] Insurance:SELF PAY [facility] Number: Effective Repository Date:2018-08-31 08/31/2018 YONATHAN COOL Primary LIANA L [place] [address] Insurance:[employer]ETNAPolicy HOBARTDOB: [facility] DRAPPLE Number: [id number] Hill, [place] [id number] Repository [address]Wsl: (330) Date:4270-42-13VN [phone] () [place] [address]IF: 08/31/2018 Secondary YONATHAN COOL [place] Insurance:MEDICARE Jr.: Community PART A olicy [id number] Number: Repository [id number] Date:2018-08-31 08/31/2018 Tertiary NOT GIVENUNK [place] Insurance:SELF PAY [facility] Number: Effective Repository Date:2018-08-31 08/31/2018 YONATHAN COOL Primary [address] Insurance:AETNAPolicy HOBARTDOB: Community [place] [address] Number: [id number] [place], [place] [id number] Repository [address]Lic: (330) Date:1760-04-47AZ [phone] (HP) [id number] ROXANN JONES [address]OW: 08/31/2018 Secondary YONATHAN COOL [place] Insurance:MEDICARE Jr.: Community [facility] [id number] Hospital Number: Repository [id number] Date:2018-05-31 08/31/2018 Tertiary NOT GIVENUNK [place] Insurance:SELF PAY [facility] Number: Effective Repository Date:2018-08-31 08/25/2018 YONATHAN COOL Primary [address] Insurance:AETNAPolicy HOBARTDOB: [facility] DRAPPLE Number: [id number] [place], [place] [id number] Repository [address]Tih: (330) Date:8062-21-47BD [phone] (HP) [id number] [address]EQ: 08/25/2018 Secondary YONATHAN Peri MARY [place] Insurance:MEDICARE Jr.: Community PART A [facility] [id number] Hospital Number: Repository [id number] Date:2018-08-25 08/25/2018 Tertiary NOT GIVENUNK [place] Insurance:SELF PAY [facility] Number: Effective Repository Date:2018-08-25 08/24/2018 YONATHAN COOL Primary [address] Insurance:AETNAPolicy HOBARTDOB: [facility] DRAPPLE Number: [id number] [place], [place] [id number] Repository [address]Ptg: (330) Date:3070-94-54HI [phone] (HP) [id number] MILYROXANN [address]QE: 08/24/2018 Secondary YONATHAN Whitt MARY [place] Insurance:MEDICARE Jr.: Community PART A BPolicy [id number] Hospital Number: Repository [id number] Date:2018-08-19 08/24/2018 Tertiary NOT GIVENUNK [place] Insurance:SELF PAY [facility] Number: Effective Repository Date:2018-08-19 08/18/2018 YONATHAN COOL Primary LIA[address] L [place] [address] Insurance:AETNAPolicy HOBARTDOB: Community [place] [address] Number: [id number], [place] [id number] Repository [address]Bow: (330) Date:6757-34-49DI [phone] () [id number] [address]BW: 08/18/2018 Secondary YONATHAN COOL [place] Insurance:MEDICARE Jr.: Community PART A [facility] [id number] Hospital Number: Repository [id number] Date:2018-07-27 08/18/2018 Tertiary NOT GIVENUNK [place] Insurance:SELF PAY [facility] Number: Effective Repository Date:2018-08-18 08/18/2018 YONATHAN COOL Primary LIANA L [place] [address] Insurance:AETNAPolicy HOBARTDOB: Community [address] Number: [id number] [id number] Repository [address]Qxt: (330) Date:2252-14-46PY [phone] () [place]69[place]FY[place], [place] [address]WX: 08/18/2018 Secondary YONATHAN COOL [place] Insurance:MEDICARE Jr.: Community PART A olicy [id number] Hospital Number: Repository [id number] Date:2018-07-27 08/18/2018 Tertiary NOT GIVENUNK [place] Insurance:SELF PAY [facility] Number: Effective Repository Date:2018-07-27 08/15/2018 YONATHAN COOL Primary LIANA L [place] Jr[address] Insurance:AETNAPolicy HOBARTDOB: Community [address] Number: [id number], [place] [id number] Repository [address]Mne: (330) Date:1019-48-37XH [phone] () 679434BR[place]OWERV[place], [place] [address]RB: 08/15/2018 Secondary YONATHAN COOL [place] Insurance:MEDICARE Jr.: Community PART A olicy [id number] Hospital Number: Repository [id number] Date:2018-07-27 08/15/2018 Tertiary NOT GIVENUNK [place] Insurance:SELF PAY [facility] Number: Effective Repository Date:2018-08-15 07/27/2018 YONATHAN COOL Primary NOT GIVENUNK [place] Jr[address] Insurance:SELF PAY [facility] [place] Number: Effective Repository [id number]: (330) Date:2018-07-27 [phone] (HP) 07/26/2018 YONATHAN COOL Primary LIANA L [place] [address] Insurance:AETNAPolicy HOBARTDOB: Community [address] Number: [id number] [place] [id number] Repository [address]Jfc: (330) Date:3952-08-26HS [phone] () 707526CRBROWERV[place]LE, [place] [address]KJ: 07/26/2018 Secondary YONATHAN COOL [place] Insurance:MEDICARE Jr.: Community PART A [facility] [id number] Hospital Number: Repository [id number] Date:2018-07-18 07/26/2018 Tertiary NOT GIVENUNK [place] Insurance:SELF PAY [facility] Number: Effective Repository Date:2018-07-25 07/19/2018 YONATHAN COOL Primary LIANA L [place] Jr[address] Insurance:AETNAPolicy HOBARTDOB: Community [address] Number: [id number], [place] [id number] Repository [address]Hce: (330) Date:5665-46-75IC [phone] () [id number] [address]BX: 07/19/2018 Secondary YONATHAN COOL [place] Insurance:MEDICARE Jr.: Community PART A olicy [id number] Hospital Number: Repository [id number] Date:2017-12-29 07/19/2018 Tertiary NOT GIVENUNK [place] Insurance:SELF PAY Community [facility] Number: Effective Repository Date:2017-12-29 06/14/2018 YONATHAN COOL Primary LIANA L [place] [address] Insurance:AETNAPolicy HOBARTDOB: Community [address] Number: [id number] [place] [id number] Repository [address]Onh: 330) Date:9275-19-01II [phone] () 590427XDBROWERVILLE, [place] [address]OE: 06/14/2018 Secondary YONATHAN COOL [place] Insurance:MEDICARE Jr.: Community PART A [facility] [id number] Hospital Number: Repository [id number] Date:2017-12-29 06/14/2018 Tertiary NOT GIVENUNK [place] Insurance:SELF PAY [facility] Number: Effective Repository Date:2018-06-14 05/31/2018 YONATHAN COOL Primary LIANA L [place] [address] Insurance:AETNAPolicy HOBARTDOB: [facility] DRAPPLE Number: [id number] [place], [place] [id number] Repository [address]Huz: (330) Date:2162-26-68GI [phone] () 343247QJBROWERVILLE[place] [address]OO: 05/31/2018 Secondary YONATHAN COOL [place] Insurance:MEDICARE Jr.: Community PART A olicy [id number] Hospital Number: Repository [id number] Date:2018-03-02 05/31/2018 Tertiary NOT GIVENUNK [place] Insurance:SELF PAY [facility] Number: Effective Repository Date:2018-05-31 04/21/2018 [id number] Primary Insurance:[facility] YONATHAN Whitt [facility] OB: HEALTH MANAGEMENT HOBARTDOB: [place] [facility] [id number] [facility] Number: [facility] [address] [place], [id number] [address] [place], Repository [place] [address]Olx: Date:0543-57-55Iwwp [place] [address]Rji: Name:OTHER GOVERN () () 04/04/2018 [id number] Primary Insurance:[facility] YONATHAN Whitt [facility] OB: HEALTH MANAGEMENT HOBARTDOB: [place] [facility] [id number] [facility] Number: [facility] [address] [place], [id number] [address] [place], Repository [place] [address]Atw: Date:9227-83-56Lzao [place] [address]Kdu: Name:OTHER GOVERN () () 03/16/2018 [id number] Primary Insurance:[facility] YONATHAN Whitt [facility] OB: HEALTH MANAGEMENT HOBARTDOB: [place] [facility] [id number] [facility] Number: [facility] [address] [place], [id number] [address] [place], Repository [place] [address]Puc: Date:0244-73-86Orrh [place] [address]Lqy: Name:OTHER GOVERN () () 03/15/2018 YONATHAN COOL Primary LIANA [place] [address] Insurance:AETNAPolicy HOBARTDOB: [facility] DRAPPLE Number: [id number] Hospital [place] [id number] Repository [address]Jcn: (330) Date:9802-06-63GE [phone] () [id number] ROXANN JONES [address]UE: 03/15/2018 Secondary YONATHAN [place] Insurance:MEDICARE Jr.: Community PART A [facility] [id number] Hospital Number: Repository [id number] Date:2017-12-29 03/15/2018 Tertiary NOT GIVENUNK [place] Insurance:SELF PAY [facility] Number: Effective Repository Date:2018-03-15 03/08/2018 YONATHAN COLO Primary LIANA [place] Jr[address] Insurance:AETNAPolicy HOBARTDOB: Community [address] Number: [id number] [place], [place] [id number] Repository [address]Dzb: (330) Date:0219-85-56GE [phone] (HP) [id number] MILYROXANN [address]JX: 03/08/2018 Secondary YONATHAN L[place] Insurance:MEDICARE Jr.: Community PART A [facility] [id number] Hospital Number: Repository [id number] Date:2018-03-08 03/08/2018 Tertiary NOT GIVENUNK [place] Insurance:SELF PAY [facility] Number: Effective Repository Date:2018-03-08 03/03/2018 YONATHAN COOL Primary YONATHAN COOL [place] Jr[address] Insurance:OB HEALTH Jr.: [facility] DRAPPLE [facility] [id number] [place] Number: Repository [address]Che: [phone] [id number] [phone] (HP) Date: [address] [address]LR: 03/03/2018 Secondary NOT GIVENUNK [place] Insurance:SELF PAY [facility] Number: Effective Repository Date:2017-12-24 03/02/2018 YONATHAN COOL Primary LIANA [place] Jr[address] Insurance:AETNAPolicy HOBARTDOB: [facility] [address] Number: [id number] [place], [place] [id number] Repository [address]Mwq: (330) Date:6891-20-85ZG [phone] (HP) 224342KX ROXANN JONES [address]HJ: 03/02/2018 Secondary YONATHAN COOL [place] Insurance:MEDICARE Jr.: Community PART A [facility] [id number] Hospital Number: Repository [id number] Date:2017-12-30 03/02/2018 Tertiary NOT GIVENUNK [place] Insurance:SELF PAY [facility] Number: Effective Repository Date:2017-12-30 02/15/2018 YONATHAN COOL Primary LIANA Tong [place] [address] Insurance:AETNAPoly [facility]: [facility] Number: [id number] [place], [place] [id number] Repository [address]Ucm: (330) Date:2354-58-06KE [phone] () 704284[place], [place] [address]HO: 02/15/2018 Secondary YONATHAN COOL [place] Insurance:MEDICARE Jr.: Community PART A [facility] [id number] Hospital Number: Repository [id number] Date:2018-02-15 02/15/2018 Tertiary NOT GIVENUNK [place] Insurance:SELF PAY [facility] Number: Effective Repository Date:2018-02-15 01/31/2018 YONATHAN COOL Primary YONATHAN COOL [place] Jr[address] Insurance:[facility] Jr.: [facility] [id number] [place], [place] Number: Repository [address]Gwv: (336) [id number] [phone] (HP) Date: [address] [address]RP: 01/31/2018 Secondary NOT GIVENUNK [place] Insurance:SELF PAY [facility] Number: Effective Repository Date:2018-01-24 01/31/2018 [id number] Primary Insurance:[facility] YONATHAN Whitt [facility] OB: HEALTH MANAGEMENT HOBARTDOB: [place] [facility] [id number] Number: [facility] DRFOREST, [id number] [facility], Repository [place] [address]Etu: Date:4461-55-30Mlpr [place] [address]Lqt: Name:OTHER [facility] (HP) (HP) 01/31/2018 Secondary SHARATH [facility] Insurance:AETNAPolicy HOBARTDOB: University Number: [id number] [facility] [id number] [facility] Date:1881-23-40Unjc [address] [place], Repository Name:[facility] [place] [address]Prh: (HP) 01/11/2018 YONATHAN Peri Primary LIANA Tong [place] [id number] APPLE Insurance:AETNAPolicy HOBARTDOB: [facility] DRAPPLE Number: [id number] [place], [place] [id number] Repository [address]Sgr: 330) Date:4761-23-42VA [phone] () 312249RU ROXANN JONES [address]KB: 01/11/2018 Secondary YONATHAN Peri [place] Insurance:MEDICARE HOBARTDOB: Community PART A BPolicy [id number] Hospital Number: Repository [id number] Date:2017-12-29 01/11/2018 Tertiary NOT GIVENUNK [place] Insurance:SELF PAY [facility] Number: Effective Repository Date:2018-01-11 01/06/2018 YONATHAN Peri Primary LIANA Tong [place] [id number] APPLE Insurance:AETNAPolicy HOBARTDOB: [facility] DRAPPLE Number: [id number] [place], [place] [id number] Repository [address]Uzv: 330) Date:6913-34-65MI [phone] () 309907HD ROXANN JONES [address]RM: 01/06/2018 Secondary YONATHAN Peri [place] Insurance:MEDICARE HOBARTDOB: Community PART A olicy [id number] Hospital Number: Repository [id number] Date:2017-12-30 01/06/2018 Tertiary NOT GIVENUNK [place] Insurance:SELF PAY [facility] Number: Effective Repository Date:2017-12-30 01/04/2018 [id number] Primary Insurance:[facility] YONATHAN Whitt [facility] OB: HEALTH MANAGEMENT HOBARTDOB: [place] [facility] [id number] [facility] [place] Number: APPLE [facility] [address] [place], [id number] [address] [place], Repository [place] [address]Wxv: Date:0128-28-41Omqq [place] [address]Ohi: Name:OTHER GOVERN () (HP) 01/04/2018 [id number] Primary Insurance:[facility] YONATHAN Whitt [facility] OB: HEALTH MANAGEMENT HOBARTDOB: [place] [facility] [id number] [facility] [place] Number: APPLE [facility] [address] [place], [id number] [address] [place], Repository [place] [address]Pnf: Date:8933-38-12Hrux [place] [address]Gyo: Name:OTHER GOVERN () () 12/30/2017 Yonathan Whitt [place] Primary LIANA L [place] [address] [place] Insurance:AETNAPolicy HOBARTDOB: [facility] DrApple Number: [id number], [place] [id number] Repository [address]Vlw: 330) Date:4488-30-48DS [phone] () 716064FR[place]OW[place], [place] [address]OU: 12/30/2017 Secondary YONATHAN Whitt [place] Insurance:MEDICARE HOBARTDOB: Community PART A BPolicy [id number] Hospital Number: Repository [id number] Date:2017-12-29 12/30/2017 Tertiary NOT GIVENUNK [place] Insurance:SELF PAY [facility] Number: Effective Repository Date:2017-12-30 11/30/2017 [id number] Primary Insurance:[facility] YONATHAN Whitt [facility] OB: HEALTH MANAGEMENT HOBARTDOB: [place] [facility] [id number] [facility] Number: [facility] [address] [place], [id number] [address] [place], Repository [place] [address]Bhm: Date:1929-84-78Dskc [place] [address]Xqz: Name:OTHER GOVERN () (HP) 11/30/2017 Secondary [facility] Insurance:AETNAPolicy HOBARTDOB: University Number: [id number] [facility] [id number] APPLE [facility] Date:1236-79-50Lnzj [address] [place], Repository Name:[facility] [place]ARE [place] [address]Otj: (HP) 11/15/2017 [id number] Primary Insurance:[facility] YONATHAN Whitt [facility] OB: HEALTH MANAGEMENT HOBARTDOB: [place] [facility] [id number] [facility] [place] Number: [facility] [address] [place], [id number] [address] [place], Repository [place] [address]Ziv: Date:0112-95-09Ksen [place] [address]Xpy: Name:OTHER GOVERN () (HP) 11/04/2017 [id number] Primary Insurance:[facility] YONATHAN Whitt [facility] OB: HEALTH MANAGEMENT HOBARTDOB: [place] [facility] [id number] [facility] Number: [facility] [address] [place], [id number] [address] [place], Repository [place] [address]Pif: Date:7835-93-35Xxem [place] [address]Htm: Name:OTHER GOVERN (HP) (HP) 11/04/2017 Secondary [facility] Insurance:AETNAPolicy HOBARTDOB: University Number: [id number] [facility] [id number] [facility] Date:1797-63-80Syaz [address] [place], Repository Name:[place] [address]Gxw: (HP) 10/19/2017 [id number] Primary Insurance:[facility] YONATHAN Whitt [facility] OB: HEALTH MANAGEMENT HOBARTDOB: [place] 2DuchePolic [id number] [facility] [address] [place] Number: [facility] [address] [place], [id number] [address] [place], [place]ository [place] [address]Npb: Date:8069-56-77Dwnp [place] [address]Wct: Name:OTHER GOVERN () () 10/19/2017 [id number] Primary Insurance:[facility] YONATHAN Whitt [facility] OB: HEALTH MANAGEMENT HOBARTDOB: [place] [facility] [id number] [facility] Number: [facility] [address] [place], [id number] [address] [place], Repository [place] [address]Pfa: Date:8243-63-05Ldjt [place] [address]Hct: Name:OTHER GOVERN () () 10/19/2017 [id number] Primary Insurance:[facility] YONATHAN Whitt [facility] OB: HEALTH MANAGEMENT HOBARTDOB: [place] [facility] [id number] [facility] Number: [facility] [address] [place], [id number] [address] [place], Repository [place] [address]Jmr: Date:4543-43-21Wtnq [place] [address]Jou: Name:OTHER GOVERN () () 08/02/2017 Yonathan Cool Primary Yonathan Cool [place] [address] Insurance:[facility] JRDOB: [facility] DrApple [facility] SOLUTIONSPolicy [id number] [place] Number: Repository [address]Bxa: [id number] [phone] Date: 6 () [place]a [place], [place] [address]GB: 08/02/2017 Secondary LIANA [place] [facility] Number: [id number] Hospital [id number] Repository Date:0150-89-89[address]Rm ROXANN [place] [address]FL: 08/02/2017 Tertiary Yonathan Lua Insurance:MEDICARE JRDOB: Community PART A BPolicy [id number] [facility] Number: Repository [id number] Date:2011-10-21 08/02/2017 Tertiary NOT GIVENNAI [place] Insurance:SELF PAY [facility] Number: Effective Repository Date:2017-02-01
== END ==
PROVIDERS: Family Provider Family Medicine; PCP Family Medicine; Referring Provider Surgery; Visit Provider Surgery
DX: R10.9 Unspecified abdominal pain (principal)
CPT/HCPCS: 36591; 74160; 80048; Q9967; A4216

== ENCOUNTER → 2018-11-11 07:24 | Outpatient (CLI) | payer OTHER, SELFPAY ==
[2018-09-06 10:09] VITALS: BMI 32.8
[2018-10-17 14:26] VITALS: BMI 34.7
--- NOTE | 2018-11-11 07:36 | CT_ITS ---
STUDY: CT SOFT TISSUE NECK WITH CONTRAST REASON FOR EXAM: Male, 57 years old. Difficulty swallowing and throat pain RADIATION DOSAGE (If Supplied By Facility): CTDIvol = ( 20.59 ) mGy, DLP = ( 694.34 ) mGycm TECHNIQUE: The patient was scanned in a multi-detector CT scanner. High resolution transaxial imaging was performed following intravenous administration of Isovue 300 100 IV. Sagittal and coronal images were reconstructed. Individualized dose optimization techniques were used for this CT. COMPARISON: CTA 11/26/2014 FINDINGS: Normal bilateral parotid glands. Normal bilateral road inspector spaces. Normal bilateral parapharyngeal spaces. Left carotid endarterectomy. Normal bilateral sublingual and submandibular glands and spaces. CT findings suggest pharyngitis. No evidence of abscess. Normal retropharyngeal space. Normal perivertebral space. Normal visualized bilateral faucial tonsils. The visualized cervical lymph nodes (levels I-) are within normal size limits, and maintain normal morphology. There is no demonstrated solid or cystic mass lesion. There is no abnormal contrast enhancement. Normal epiglottis, bilateral vallecula and hypopharynx. The pre-epiglottic and paraglottic adipose spaces are normal. Normal visualized bilateral piriform sinuses, aryepiglottic folds, vocal cords, and arytenoid-cricoid articulations. Normal subglottic trachea. Normal bilateral lobes of the thyroid gland. Normal visualized pulmonary apices. Bilateral maxillary sinus cysts. Multiple cervical fusions and laminectomies. Right chest wall port. CT/Soft Tissue Neck WITH Contrast IMPRESSION: CT findings suggest pharyngitis. No evidence of abscess. The epiglottis is normal. The retropharynx is intact. No masses or adenopathy. Electronically Signed: Andi Ceron MD at 2:51 EST Tel , Service support ,
[2018-11-11 07:46] LABS: CREATININE FINGERSTICK 1.3 mg/dL (0.70-1.30); EGFR FINGERSTICK > 60.0000 mL/min (>60)
[2018-11-11] MEDS: 0.9% Saline Lock 10 ML Syringe IV (07:50)
== END ==
PROVIDERS: Family Provider Family Medicine; PCP Family Medicine; Referring Provider Otolaryngology; Visit Provider Otolaryngology
DX: R07.0 Pain in throat (principal); Z98.1 Arthrodesis status
CPT/HCPCS: 70491; Q9967; A4216

== ENCOUNTER → 2019-01-17 | Outpatient (CLI) | payer OTHER, MEDICARE, SELFPAY ==
[2018-10-17 14:26] VITALS: BMI 34.7
[2019-01-17 12:06] VITALS: BMI 34.3
--- NOTE | 2019-01-17 12:32 | CT_ITS ---
STUDY: LOW DOSE CT LUNG CANCER SCREENING REASON FOR EXAM: Male, 58 years old. 20 pack-year smoking history. History of bladder cancer. RADIATION DOSAGE (If Supplied By Facility): CTDIvol = ( 4.02 ) mGy, DLP = ( 147.48 ) mGycm TECHNIQUE: No contrast was administered. Low dose technique was utilized (average mAS-38 and kVp 120). 1.25 mm axial source images with a slice interval of 1.25-mm were reconstructed in lung windows. 2.5 mm axial source images with a slice interval of 2.5-mm were reconstructed in lung windows. 5.0 mm axial source images with a slice interval of 5.0-mm were reconstructed in soft tissue windows. Nodule measured using lung windows on PACS and/or independent workstation with automated measurement of minimum and maximum diameter. Nodule measurement reported as average diameter rounded to the nearest whole number. Growth is defined as an increase ins size of greater than 1.5 mm. COMPARISON: Comparison is made with prior study dated January 06, 2018. NODULES: Stable 5 mm noncalcified nodule in the anterior lateral aspect of the right middle lobe as seen on axial image #153. Total lung nodules (excluding granulomas): 1 Emphysema: Stable mild degree of linear scarring at the lung bases. Aorta: Atherosclerotic plaque of the aortic arch. Coronary arteries: Unremarkable. Mediastinal nodes: Stable benign-appearing mediastinal lymph nodes. CT/Low Dose CT Lung Screening IMPRESSION: Lung-RADS category 2 - Continue annual screening with LDCT in 12 months. IMPORTANT NOTES FOR USE: ACR Lung-RADS Version 1.0 Assessment Categories Release Date: January 15, 2014 Category: Coded 0-4 bases on nodule(s) with highest degree of suspicion. Negative screen is defined as categories 1 and 2; a positive screen is defined as categories 3 and 4. Category 3 and 4A nodules that are unchanged on interval CT should be coded as category 2, and individuals returned to screening in 12 months. Category 4X: Category 3 or 4 nodules with additional imaging findings that increase the suspicion of lung cancer, such as spiculation, GGN that doubles in size in 1 year, enlarged lymph notes, etc. Category Modifiers: S (significant finding unrelated to lung cancer) and C (prior history of treated lung cancer) may be added to the 0-4 Lung-RADS Electronically Signed: Reno Arreola, at 13:38 EDT , Service support ,
== END | disposition home or self-care (01) ==
LOC: CT 12:31
PROVIDERS: Family Provider Family Medicine; PCP Family Medicine; Referring Provider Nurse Practitioner Family; Visit Provider Nurse Practitioner Family
DX: F17.209 Nicotine dependence, unspecified, with unspecified nicotine-induced disorders (principal); Z12.2 Encounter for screening for malignant neoplasm of respiratory organs
CPT/HCPCS: G0297

== ENCOUNTER → 2019-07-21 | Outpatient (CLI) | payer OTHER, MEDICARE, SELFPAY ==
[2019-01-23 11:14] VITALS: BMI 33.7
--- NOTE | 2019-07-21 12:03 | STRESSREP ---
Stress Test Report Date: 07-21-19 Procedure: Pharmacologic stress nuclear imaging study Indications: Preoperative cardiovascular evaluation Consent: Per the patient Procedure: The patient underwent pharmacologic (Regadenoson) evaluation with a peak heart rate of 87 beats per minute (53 %predicted maximal heart rate) and a peak blood pressure of 142/98 mmHg. The baseline ECG demonstrated normal sinus rhythm. The peak pharmacologic ECG demonstrated no obvious ECG changes. There were no cardiac dysrhythmias pretest, during pharmacologic infusion, or recovery. There was no complaint of chest discomfort during pharmacologic infusion or recovery. The examination was discontinued secondary to completion of protocol. Impression: 1. Pharmacologic (Regadenoson) evaluation 2. Peak pharmacologic ECG with no obvious ECG changes. 3. There were no cardiac dysrhythmias pretest, during pharmacologic infusion, or recovery. 4. Nuclear images pending Myocardial perfusion imaging study: Technique: The patient was injected with 15.0 millicuries of technetium 99m Cardiolite and subsequently rest SPECT Cardiolite nuclear imaging was obtained in the horizontal long, vertical long, and short axis views. The patient underwent pharmacologic (Regadenoson) evaluation with a peak heart rate of 87 beats per minute (53 % percent predicted maximal heart rate) and a peak blood pressure of 142/98 mmHg. The patient was injected with 45.0 millicuries of technetium 99m Cardiolite and subsequently stress SPECT Cardiolite nuclear imaging was obtained in the horizontal long, vertical long, and short axis views. A gated Cardiolite study at peak stress was obtained. Interpretation: Rest and stress SPECT Cardiolite nuclear imaging status post realignment, normalization, and attenuation correction demonstrate relative uniform tracer uptake and myocardial perfusion appearing within normal limits. There is end systolic thickening and brightening. The gated Cardiolite study demonstrates myocardial thickening and inward wall motion. The reported LVEF is 67 %. Impression: 1. Rest and stress SPECT Cardiolite nuclear imaging demonstrate relative uniform tracer uptake and myocardial perfusion appearing within normal limits. 2. The gated Cardiolite study reports an LVEF of 67 %. This note was generated with Chance (app)ation software. It may contain incorrect words, spelling, and punctuation that were not noted in checking the note before signing.
== END | disposition home or self-care (01) ==
LOC: CVS 06:05
PROVIDERS: Family Provider Family Medicine; PCP Family Medicine
DX: R07.9 Chest pain, unspecified (principal); R06.00 Dyspnea, unspecified
CPT/HCPCS: 78452; 93017; A9500; A4216; J2785

== ENCOUNTER 2019-08-28 15:05 | Outpatient (RCR) | payer OTHER, MEDICARE, SELFPAY ==
[2019-01-23 11:14] VITALS: BMI 33.7
[2019-08-28 16:48] LABS: Absolute Lymphocyte Count 2.05 X10^3/uL (0.83-4.51); Absolute Neutrophil Count 3.7 X10^3/uL (2.0-7.7); Basophil# 0.05 X10^3/uL; Basophil% 0.7 % (0-1); Eosinophil# 0.37 X10^3/uL; Eosinophils% 5.4 % (0-5); Hematocrit 43.4 % (40-54); Lymphocyte # 2.05 X10^3/ul (4.0); Mean Corp Hgb Conc 34.6 g/dL (32-36); Mean Corpuscular Hgb 32.1 pg (27.0-32.0); Mean Corpuscular Volume 92.9 fL (80-94); Mean Platelet Vol. 9.8 fl (6.2-12.0); Monocyte# 0.59 X10^3/uL; Monocyte% 8.6 % (0-10); NRBC Flagged by Analyzer 0 % (0-5); Neutrophil # 3.73 X10^3/uL (2.7-7.7); Neutrophil % 54.7 % (47-70); Platelet Count 188 K/mm3 (150-450); RBC Distribution Width CV 13.6 % (11.6-14.6); RBC Distribution Width SD 46.3 fl (35.1-43.9); Red Blood Count 4.67 M/mm3 (4.6-6.2); White Blood Count 6.8 K/mm3 (4.4-11.0)
[2019-08-28 17:09] LABS: Anion Gap 6 (5-15); BUN 13 mg/dL (7-18); BUN/Creat Ratio 15.1 RATIO (10-20); Calcium,Total 8.8 mg/dL (8.5-10.1); Chloride 105 mmol/L (98-107); Creatinine, Serum 0.86 mg/dL (0.70-1.30); EST Glomerular Filtration Rate 97 mL/min (>60); Est Glom Filt Rate - Afr Amer 118 mL/min (>60); Glucose 122 mg/dL (74-106); Sodium Level 137 mmol/L (136-145)
[2019-08-28 17:20] LABS: Vancomycin, Trough Level 19.6 ug/mL (5.0-15.0)
[2019-08-29 08:10] LABS: AST(SGOT) 33 U/L (15-37); Alanine Aminotransfer ALT/SGPT 76 U/L (16-61); Albumin, Serum 3.9 g/dL (3.2-5.0); Alkaline Phosphatase 129 U/L (45-117); Bilirubin, Direct 0.06 mg/dL (0.00-0.30); Globulin 3.5 g/dL (2.2-4.2); Protein, Total 7.4 g/dL (6.4-8.2)
== END 2019-08-28 18:00 | disposition home or self-care (01) ==
LOC: HHLAB 15:05
PROVIDERS: Family Provider Family Medicine; PCP Family Medicine
DX: T81.41XA Infection following a procedure, superficial incisional surgical site, initial encounter (principal); Z79.2 Long term (current) use of antibiotics
CPT/HCPCS: 80048; 80076; 80202; 85025

== ENCOUNTER → 2019-10-26 07:56 | Outpatient (CLI) | payer OTHER, MEDICARE, SELFPAY ==
[2019-10-18 11:26] VITALS: BMI 34.2
[2019-10-20 13:53] VITALS: BMI 33.9
--- NOTE | 2019-10-26 07:57 | US_ITS ---
STUDY: ABDOMINAL ULTRASOUND - RIGHT UPPER QUADRANT REASON FOR VISIT: Male, 58 years old HEMOCHROMATOSIS TECHNIQUE: Ultrasound evaluation of the right upper quadrant was performed with real-time and static kruger-scale imaging. TECHNICAL QUALITY: Adequate. COMPARISON: Comparison is made with prior examination January 06, 2018. FINDINGS: Liver: The liver is mildly enlarged and measures 18.3 cm. There is increased echogenicity consistent with fatty infiltration. The bile ducts are within normal limits. There is hepatic color flow. The direction of portal flow is hepatopetal. There is no demonstrated mass lesion. Gallbladder: The patient is status post cholecystectomy. Common Bile Duct (C.B.D.): The common bile duct measures 3.7 mm. Pancreas: There is nonvisualization of the pancreas due to overlying bowel gas. Right Kidney: Normal size of the right kidney. The right kidney measures 11.5 cm x 6.1 cm x 5.7 cm. Normal renal cortex. The right cortex measures 1.9 cm. There is no demonstrated renal mass or cyst. There is no right hydronephrosis. US/Liver IMPRESSION: Mild hepatomegaly and fatty infiltration of the liver. Electronically Signed: Reno Arreola, at 13:31 EST , Service support ,
== END ==
PROVIDERS: PCP Family Medicine; Referring Provider Internal Medicine Hematology & Oncology; Visit Provider Internal Medicine Hematology & Oncology
DX: E83.119 Hemochromatosis, unspecified (principal); K74.60 Unspecified cirrhosis of liver
CPT/HCPCS: 76705

== ENCOUNTER 2019-12-26 08:49 | Outpatient (RCR) | payer MEDICARE, OTHER, SELFPAY ==
[2019-10-20 13:53] VITALS: BMI 33.9
== END 2020-01-18 23:59 ==
LOC: WC 08:49
PROVIDERS: PCP Family Medicine; Visit Provider Nurse Practitioner Family
DX: Z09 Encounter for follow-up examination after completed treatment for conditions other than malignant neoplasm (principal)

== ENCOUNTER → 2020-01-17 09:00 | Outpatient (CLI) | payer OTHER, MEDICARE, SELFPAY ==
[2020-01-16 13:44] VITALS: BMI 34.7
[2020-01-16 15:25] VITALS: BMI 34.7
--- NOTE | 2020-01-17 09:02 | VDUE_ITS ---
Reason For Study: Swelling Right Proximal Left Proximal Right jugular vein is spontaneous, widely Left jugular vein is spontaneous, widely patent, phasic, with no intraluminal patent, phasic, with no intraluminal echogenicity noted. echogenicity noted. Right subclavian vein is spontaneous, widely Left subclavian vein is spontaneous, widely patent, phasic, with no intraluminal patent, phasic, with no intraluminal echogenicity noted. echogenicity noted. Right Lower Arm Left Arm Right radial vein is compressible. Left axillary vein is spontaneous, patent, Right ulnar vein is compressible. phasic, competent, compressible and Right Arm demonstrates augmentation. Right axillary vein is spontaneous, patent, Left brachial vein is compressible. phasic, competent, compressible and Left cephalic vein is compressible. demonstrates augmentation. Left basilic vein is compressible. Right brachial vein is compressible. Left Lower Arm Right cephalic vein is compressible. Left radial vein is compressible. Right basilic vein is compressible. Left ulnar vein is compressible. Patient Safety Prelim to [place]. Interpretation Summary No evidence for acute deep venous thrombosis bilateral upper extremities with patent and compressible bilateral cephalic and basilic veins. Ordering Physician: Brenden Sauceda Referring Physician: Guillaume Duarte M.D. Performed By: Lizzie Mercado RVT ?
== END ==
PROVIDERS: PCP Family Medicine; Referring Provider Internal Medicine Hematology & Oncology; Visit Provider Internal Medicine Hematology & Oncology
DX: R60.9 Edema, unspecified (principal); M79.621 Pain in right upper arm
CPT/HCPCS: 93970

== ENCOUNTER → 2020-01-30 12:29 | Outpatient (CLI) | payer OTHER, MEDICARE, SELFPAY ==
[2020-01-16 15:25] VITALS: BMI 34.7
[2020-01-30 12:02] VITALS: BMI 34.2
--- NOTE | 2020-01-30 12:30 | CT_ITS ---
STUDY: LOW DOSE CT LUNG CANCER SCREENING REASON FOR EXAM: Male, 59 years old. CURRENT SMOKER, 43 YRS. 1 PPD, HX HEMATOCHROMATOSIS, BLADDER CA RADIATION DOSAGE (If Supplied By Facility): CTDIvol = ( 4.02 ) mGy, DLP = ( 136.42 ) mGycm TECHNIQUE: No contrast was administered. Low dose technique was utilized (average mAS-38 and kVp 120). 1.25 mm axial source images with a slice interval of 1.25-mm were reconstructed in lung windows. 2.5 mm axial source images with a slice interval of 2.5-mm were reconstructed in lung windows. 5.0 mm axial source images with a slice interval of 5.0-mm were reconstructed in soft tissue windows. Nodule measured using lung windows on PACS and/or independent workstation with automated measurement of minimum and maximum diameter. Nodule measurement reported as average diameter rounded to the nearest whole number. Growth is defined as an increase ins size of greater than 1.5 mm. COMPARISON: Comparison is made with prior examination dated January 17, 2019. A right-sided portacatheter is seen with the tip in the superior vena cava. NODULES: Stable 5 mm noncalcified nodule in the anterior lateral aspect of the right middle lobe as seen on axial image #163. Emphysema: Hyperinflation. Stable mild scarring at the lung bases. Aorta: Minimal calcific plaque at the origin of the left subclavian artery. Coronary arteries: Unremarkable. Mediastinal nodes: Stable small benign-appearing cyst on the lymph nodes. Other chest and abdominal findings: Mild degree of degenerative changes of the thoracic spine. CT/Low Dose CT Lung Screening IMPRESSION: Lung-RADS category 2 - Continue annual screening with LDCT in 12 months. IMPORTANT NOTES FOR USE: ACR Lung-RADS Version 1.0 Assessment Categories Release Date: January 15, 2014 Category: Coded 0-4 bases on nodule(s) with highest degree of suspicion. Negative screen is defined as categories 1 and 2; a positive screen is defined as categories 3 and 4. Category 3 and 4A nodules that are unchanged on interval CT should be coded as category 2, and individuals returned to screening in 12 months. Category 4X: Category 3 or 4 nodules with additional imaging findings that increase the suspicion of lung cancer, such as spiculation, GGN that doubles in size in 1 year, enlarged lymph notes, etc. Category Modifiers: S (significant finding unrelated to lung cancer) and C (prior history of treated lung cancer) may be added to the 0-4 Lung-RADS Electronically Signed: Reno Arreola, at 12:55 EDT , Service support ,
== END ==
PROVIDERS: PCP Family Medicine; Referring Provider Nurse Practitioner Family; Visit Provider Nurse Practitioner Family
DX: F17.209 Nicotine dependence, unspecified, with unspecified nicotine-induced disorders (principal); Z12.2 Encounter for screening for malignant neoplasm of respiratory organs
CPT/HCPCS: G0297

== ENCOUNTER → 2020-04-16 09:55 | Outpatient (CLI) | payer OTHER, MEDICARE, SELFPAY ==
[2020-02-15 11:17] VITALS: BMI 34.2
[2020-03-20 08:49] VITALS: BMI 34.4
--- NOTE | 2020-04-18 11:55 | PFT ---
INTRODUCTION: The patient is a 59-year-old male that presents for pulmonary function studies secondary to a diagnosis of COPD. Respiratory therapy reports good patient effort. Bronchodilators were used during testing. INTERPRETATION: Forced expiration spirometry demonstrates no evidence of a large airways obstructive ventilatory defect. There was no significant response to aerosolized bronchodilators. Spirograms are of good quality and plateau gradually indicating slow emptying of the lungs. Body plethysmography was performed and reveals a decreased TLC to 5.72 L, 80% of predicted, indicative of a mild restrictive ventilatory impairment. The remainder of the lung volumes are symmetrically reduced. Diffusing capacity by single breath CO is within normal limits. IMPRESSION: Isolated mild restrictive ventilatory impairment with preserved diffusing capacity.
== END ==
PROVIDERS: PCP Family Medicine; Referring Provider Internal Medicine Critical Care Medicine; Visit Provider Internal Medicine Critical Care Medicine
DX: J44.9 Chronic obstructive pulmonary disease, unspecified (principal); F17.210 Nicotine dependence, cigarettes, uncomplicated
CPT/HCPCS: 94060; 94726; 94729

== ENCOUNTER 2020-06-17 07:48 | Day surgery (SDC) | payer OTHER, MEDICARE, SELFPAY ==
[2020-05-29 14:06] VITALS: BMI 32.5
--- NOTE | 2020-06-04 01:43 | HP_ITS ---
Intake Vital Signs 05/29/20 BMI 32.5 Intake Visit Reasons: port removal/discuss scheduling c-scope Chief Complaint: port removal/discuss c-scope Business Process Lead Required: No Is patient in pain?: No Allergies lorazepam [From Ativan] Allergy (Severe, Verified 05/29/20 14:04) Other cephalexin [From Keflex] Adverse Reaction (Severe, Verified 05/29/20 14:04) Nausea/Vom/Diarrhea fluoxetine HCl [From Prozac] Adverse Reaction (Severe, Verified 05/29/20 14:04) Vomiting morphine Adverse Reaction (Severe, Verified 05/29/20 14:04) Rash oxycodone Adverse Reaction (Severe, Verified 05/29/20 14:04) Hives pregabalin [From Lyrica] Adverse Reaction (Severe, Verified 05/29/20 14:04) hypotension Medications glucose monitor and supplies #1 ea 09/15/18 [Rx Confirmed 05/29/20] ziconotide 25 mcg/mL intrathecal solution 0.05 mcg/hr INTRATH UD 01/17/19 [History Confirmed 05/29/20] Amlodipine Besylate [Norvasc] 10 mg PO DAILY 01/16/20 [History Confirmed 05/29/20] Lisinopril [Zestril] 10 mg PO DAILY 01/16/20 [History Confirmed 05/29/20] albuterol sulfate 90 mcg/actuation aerosol inhaler 2 puff INHALATION Q4H PRN #1 ea 02/15/20 [Rx Confirmed 05/29/20] Hydrocodone/Acetaminophen [[place] 10-325 Tablet] 1 ea PO BID PRN PRN 05/14/20 [History Confirmed 05/29/20] [facility] Medical History Carpal tunnel syndrome on both sides (Chronic) Pain pump (Acute) Lupus (Chronic) Bladder cancer (Chronic) Bone spur of foot (Chronic) Cirrhosis (Chronic) History of pulmonary embolus (PE) (Chronic) PORT PLACEMENT (Acute) Hereditary hemochromatosis (Chronic) Hypercoagulable state (Chronic) Abdominal pain (Acute) Depression (Acute) Glossopharyngeal neuralgia (Acute) Nausea (Acute) Hypertension (Chronic) Surgical History History of appendectomy (Acute) History of carpal tunnel surgery of left wrist (Acute) History of carpal tunnel surgery of right wrist (Acute) History of cholecystectomy (Acute) History of deviated nasal septum (Acute) History of spinal fusion (Acute) Family History Father Prostate cancer Heart disease Grandfather Diabetes Grandmother Diabetes Mother Hypertension Heart disease Sister Hypertension Sisters x2 Social History (Updated 06/04/20 @ 13:[address] Vern Rose MD) Smoking Status: Current every day smoker tobacco type: cigarettes Tobacco: How many years used: 40 Smokeless tobacco user: other Electronic Cigarette Use: not used second hand exposure: Yes quit status: not considering quitting counseling given: provider counseling alcohol intake: never substance use type: does not use what type of physical activity do you participate in: none HPI HPI Surgical H&P: Yes HPI: YONATHAN HERNANDEZ, is a 59 M who presents to the office today for Presents for Evaluation for port removal.Patient however has not had a colonoscopy. And will need to have a screening colonoscopy prior to the port being removed. He does have a personal history of hemochromatosis as well as neoplasia of his bladder. He is currently not having any difficulty with his bowel movements. ROS General General: Yes weight change and fatigue; no appetite, colon cancer, breast cancer or weakness HEENT HEENT: No difficulty swallowing, eye injury, eye surgery, swollen glands or hoarseness Endo Endocrine: Yes diabetes mellitus; no thyroid disease, thyroid cancer, Hair loss, heat intolerance or cold intolerance Skin Skin: No rash or changing moles Breast Breast: No left breast lump, right breast lump, nipple discharge, breast pain, abnormal mammogram, abnormal US or breast enlargement Musc Musculoskeletal: Yes back problems; no arthritis, rheumatoid arthritis, gout or joint pain Cardio Cardiovascular: Yes high blood pressure; no murmur, pacemaker, heart disease, atrial fibrillation, heart attack, heart stent, palpitations, shortness of breat with exertion or chest pain Psych Psychiatric: Yes depression; no anxiety or hearing voices Resp Respiratory: No shortness of breath, No sleep apnea, No cough, Yes COPD, Yes asthma, Yes emphysema, No wheezing Gastro Gastrointestinal: Yes abdominal pain, No nausea or vomiting, Yes diarrhea, No constipation, Yes blood in stool, No acid reflux, Yes hemorrhoids, No ulcers, No gallbladder problem, No black,tarry stools Ozzy Hematologic: No blood thinners, Yes blood disorders, No bleeding, No anemia, Yes blood clots Neuro Neurologic: No system reviewed and no additional complaints, except as docu, No as per HPI, No abnormal walking, No abnormal hearing, No abnormal movements, No abnormal speech, No behavioral changes, No burning sensations, No confusion, No seizure-like activity, No unsteadiness, No dizziness, No localized weakness, No frequent falls, No headache(s), No lack of coordination, No loss of vision, No memory loss, Yes numbness, No other visual disturbances, No radiating pain, No restless legs, No sensory deficit, No fainting, Yes tingling, No tremor(s), No weakness, No other Exam Const General: no acute distress, well developed, well hydrated Orientation: oriented to person, oriented to place, oriented to time [facility] Head: normocephalic, atraumatic Ears: external ears normal Mouth: moist mucous membranes Eyes Sclera: sclerae normal Pupils: normal by confrontation Neck Neck: no lymphadenopathy noted Neck mass: No Thyroid: thyroid normal, symmetrical Chest Chest palpation & inspection: normal inspection of the chest Breast Palpation: No nipple discharge Resp Effort & Inspection: normal respiratory effort Auscultation: clear to auscultation bilaterally Percussion: percussion normal Cardio Rate: regular rate Rhythm: regular rhythm Heart Sounds: no murmurs GI Palpation: soft, no hepatosplenomegaly, no masses, nontender Rectal Exam: other Other: Rectal exam deferred. Extrem General: normal to inspection, no clubbing, cyanosis or edema Assessment & Plan Problems 1. Screening for colon cancer Z12.11 Plan I have discussed the above with the patient. I have offered the patient colonoscopy for evaluation. I have explained the risks/benefits of the procedure and described the procedure. I have discussed the risks with the patient, including but not limited to: infection, bleeding, perforation of the GI tract requiring emergency surgery, inability to complete the procedure, injury to any internal organs, complications of anesthesia, etc. - the patient understands and agrees to proceed. I have answered all the patient's questions to the patient's satisfaction and the patient has no further questions. The patient has been given instructions for the colon cleansing preparation. Once this is completed then we can see him back in the office to remove his port. Prior to this though he will need to be off of his Coumadin for several days. Coding Level of Care Code Off vis,est,level 3 Diagnoses Screening for colon cancer Z12.11 COVID (Procedure Consent) Procedure Criteria Procedure Criteria: Yes Elective The surgeon/proceduralist and patient have discussed in detail the risk of exposure to and/or potential harm posed by the COVID-19 virus with having a surgery/procedure at this time versus the risk of? delaying the surgery/procedure. It is not possible to know either the risk of delaying the surgery or procedure or chance of getting an infection with perfect accuracy, but a joint decision was made between the patient and the surgeon/proceduralist ?to proceed at this time with the scheduled surgery/procedure as indicated on the consent form. 06/04/20 2483 <Electronically signed by Vern garg MD> Date _ Vern Rose MD I have re-examined the patient. There are no clinical changes since date of exam.
[2020-06-17 08:14] VITALS: BP 154/92; PULSE 77; RESP 16; TEMP 36.5; O2SAT 96; BMI 31.9
--- NOTE | 2020-06-17 08:45 | COLBX_PTH ---
PATIENT: YONATHAN HERNANDEZ Jr. LOC: EN U#:[id number] AGE/SX: 59/M ROOM: RE06/17/[address]: Dr. Vern Rose MD : 1960 BED: DIS: 06/17/2020 SPEC #: [id number] RECD: 06/17/20 12:04 STATUS: SEAN JAK #: [id number] SUZANNE: 06/17/20 08:[address]: Vern Rose DEPT: SURGICAL PATHOLOGY RECD BY: Arianne Galicia ENTERED: 06/17/20 13:48 SP TYPE: COLON BX OTHR DR: Dr. Aleksandr Duarte, DO Tissues: Rectum, NOS Procedures: Surgery Specimen Level IV HEADER OPERATION: Colonoscopy (MAC) PRE-OP DIAGNOSIS: Screening TISSUE SUBMITTED: Rectal polyp MICROSCOPIC DIAGNOSIS Rectal polyp, biopsy: Hyperplastic polyp. AM:carlotta 06/18/20 MICROSCOPIC DESCRIPTION Slides are reviewed. GROSS DESCRIPTION Received in fixative is one container labeled with the patient's name and designated rectal polyp. The specimen consists of one irregular fragment of light seaman soft tissue that measures 0.2 x 0.2 x 0.2 cm. The specimen is totally submitted in one cassette. / AM:carlotta 06/17/20 TC:5 CPT: 52172
--- NOTE | 2020-06-17 09:05 | OP.COLON_ITS ---
Patient Name: Dylan Cool Procedure Date: 06/17/2020 8:38 AM Date of : 1960 Age: 59 Procedure: Colonoscopy Indications: Screening for colorectal malignant neoplasm Providers: Vern Rose MD Referring MD: Aleksandr Duarte Medicines: See the Anesthesia note for documentation of the administered medications Patient Profile: This is a 59 year old male. Refer to note in patient chart for documentation of history and physical. Last Colonoscopy: none. The patient's first colonoscopy is today. Complications: No immediate complications. Procedure: Pre-Anesthesia Assessment: - Prior to the procedure, a History and Physical was performed, and patient medications and allergies were reviewed. The patient's tolerance of previous anesthesia was also reviewed. The risks and benefits of the procedure and the sedation options and risks were discussed with the patient. All questions were answered, and informed consent was obtained. Prior Anticoagulants: The patient has taken no previous anticoagulant or antiplatelet agents. ASA Grade Assessment: III - A patient with severe systemic disease. After reviewing the risks and benefits, the patient was deemed in satisfactory condition to undergo the procedure. After I obtained informed consent, the scope was passed under direct vision. Throughout the procedure, the patient's blood pressure, pulse, and oxygen saturations were monitored continuously. The adult colonoscope was introduced through the anus and advanced to the cecum, identified by appendiceal orifice and ileocecal valve. The colonoscopy was performed without difficulty. The patient tolerated the procedure well. The quality of the bowel preparation was good. Scope In: 8:49:51 AM Scope Withdrawal Time 0 hours 8 minutes 43 seconds Scope Out: 9:02:14 AM Total Procedure Duration Time 0 hours 12 minutes 23 seconds Findings: A 4 mm polyp was found in the rectum. The polyp was sessile. The polyp was removed with a hot snare. Resection and retrieval were complete. Non-bleeding internal hemorrhoids were found during retroflexion. The hemorrhoids were mild and small. The exam was otherwise without abnormality. Impression: - One 4 mm polyp in the rectum, removed with a hot snare. Resected and retrieved. - Non-bleeding internal hemorrhoids. - The examination was otherwise normal. Recommendation: - Discharge patient to home. - Resume previous diet. - Continue present medications. - Await pathology results. - Repeat colonoscopy in 5 years for surveillance. - Return to my office in 1 week. Procedure Code(s): --- Professional --- 20791, Colonoscopy, flexible; with removal of tumor(s), polyp(s), or other lesion(s) by snare technique Diagnosis Code(s): --- Professional --- Z12.11, Encounter for screening for malignant neoplasm of colon K62.1, Rectal polyp K64.8, Other hemorrhoids CPT copyright 2017 [employer] [place] [employer]. All rights reserved. The codes documented in this report are preliminary and upon body engineer review may be revised to meet current compliance requirements. MD Vern Jerez MD 06/17/2020 9:05:04 AM This report has been signed electronically. Number of Addenda: 0 Note Initiated On: 06/17/2020 8:38 AM
--- NOTE | 2020-06-17 09:05 | OP.CCLET_ITS ---
06/17/2020 Aleksandr Duarte Re : Colonoscopy procedure for Dylan Cool Dear Dr. Duarte This procedure was performed on Wednesday, June 17, 2020. My impressions and recommendations are as follows: Impressions : - One 4 mm polyp in the rectum, removed with a hot snare. Resected and retrieved. - Non-bleeding internal hemorrhoids. - The examination was otherwise normal. Recommendations : - Discharge patient to home. - Resume previous diet. - Continue present medications. - Await pathology results. - Repeat colonoscopy in 5 years for surveillance. - Return to my office in 1 week. My findings are described in the full procedure note, which is enclosed. If I can be of further assistance, please feel free to contact me at Doctor phone number(s): , Fax: [phone], Work: . Sincerely, MD Vern Jerez MD 06/17/2020 9:05:04 AM This report has been signed electronically.
[2020-06-17 09:06] VITALS: BP 124/87; BP 154/92; PULSE 70; RESP 16; TEMP 36.2; O2SAT 93
[2020-06-17 09:10] VITALS: BP 122/86; BP 154/92; PULSE 66; RESP 16; O2SAT 91
[2020-06-17 09:15] VITALS: BP 128/86; BP 154/92; PULSE 65; RESP 16; O2SAT 92
[2020-06-17 09:20] VITALS: BP 118/83; BP 154/92; PULSE 58; RESP 16; TEMP 36.5; O2SAT 94
[2020-06-17 09:40] VITALS: BP 154/92
== END 2020-06-17 09:51 | disposition home or self-care (01) ==
LOC: EN 07:49 → AC 07:49
PROVIDERS: PCP Family Medicine; Referring Provider Family Medicine; Visit Provider Surgery
PROC: 0DJD8ZZ Inspection of Lower Intestinal Tract, Via Natural or Artificial Opening Endoscopic (ICD-10-PCS; CPT 45378; principal; 2020-06-17 08:40)
DX: Z12.11 Encounter for screening for malignant neoplasm of colon (principal); Z45.2 Encounter for adjustment and management of vascular access device; E83.110 Hereditary hemochromatosis; I10 Essential (primary) hypertension; F17.210 Nicotine dependence, cigarettes, uncomplicated; K64.8 Other hemorrhoids; K62.1 Rectal polyp; M32.9 Systemic lupus erythematosus, unspecified; K58.9 Irritable bowel syndrome, unspecified
CPT/HCPCS: 45385; 87635; 88305; C9803; J7120; A4216; J1610; U0003

== ENCOUNTER → 2020-06-19 13:32 | Outpatient (CLI) | payer OTHER, MEDICARE, SELFPAY ==
[2020-05-29 14:06] VITALS: BMI 32.5
[2020-06-17 08:14] VITALS: BMI 31.9
[2020-06-19 14:00] LABS: CREATININE FINGERSTICK 0.8 mg/dL (0.70-1.30); EGFR FINGERSTICK > 60.0000 mL/min (>60)
[2020-06-19] MEDS: 0.9% Saline Lock 10 ML Syringe IV (14:04)
--- NOTE | 2020-06-19 14:10 | CT_ITS ---
STUDY: CT ABDOMEN AND PELVIS WITH AND WITHOUT CONTRAST REASON FOR EXAM: Male, 59 years old. HEMATURIA. HX OF BLADDER CA RADIATION DOSAGE (If Supplied By Facility): CTDIvol = ( 24.83 ) mGy, DLP = ( 4007.15 ) mGycm TECHNIQUE: Transaxial images were obtained from the dome of the diaphragm to the symphysis pubis with oral contrast. Oral and IV and 100mL Isovue-300 was administered. Sagittal and coronal images were reconstructed. Individualized dose optimization techniques were used for this CT. COMPARISON: Comparison is made with prior study dated 08/31/2018. FINDINGS: Stable 5 mm noncalcified nodule in the anterior aspect of the right middle lobe as seen on axial image #3. The visualized portions of the heart are within normal limits. There is decreased attenuation of the liver consistent with steatosis. The patient is status post cholecystectomy. Normal spleen. Normal pancreas. Normal bilateral adrenal glands. Normal right kidney. Normal left kidney. Normal visualized stomach. Normal small intestine. Normal colon. The appendix is visualized and appears normal. Normal abdominal aorta. Normal inferior vena cava. There is borderline retroperitoneal lymphadenopathy with enlarged nodes no greater than 10mm in the short axis diameter. Normal urinary bladder. There are prostatic calcifications. There is evidence of a prior repair of a right inguinal hernia with mesh. There are mild degenerative changes of the visualized lumbar spine. Minimal loss of height of the superior endplate of the T11 vertebrae. Once again, a stimulator device is seen overlying the left buttock with the leads extending to the thoracic region. CT/CT Abd/Pelvis W/WO Contrast IMPRESSION: Stable examination. Fatty infiltration of the liver. Electronically Signed: Reno Arreola, at 15:18 EDT , Service support ,
== END ==
PROVIDERS: PCP Family Medicine; Referring Provider Nurse Practitioner Adult Health; Visit Provider Nurse Practitioner Adult Health
DX: R31.0 Gross hematuria (principal); Z85.51 Personal history of malignant neoplasm of bladder
CPT/HCPCS: 74178; Q9967; A4216

== ENCOUNTER → 2020-07-09 11:10 | Outpatient (CLI) | payer OTHER, MEDICARE, SELFPAY ==
[2020-06-17 08:14] VITALS: BMI 31.9
--- NOTE | 2020-07-09 09:40 | FLU_PTH ---
PATIENT: YONATHAN HERNANDEZ Jr. LOC: JONH U#:[id number] AGE/SX: 64/M ROOM: RE07/09/[address]: Dr. Jose Mckeon MD : 1960 BED: DIS: SPEC #: [id number] RECD: 07/09/20 12:00 STATUS: SEAN RERosie #: [id number] SUZANNE: 07/09/20 09:[address]: Jose Mckeon DEPT: CYTOLOGY RECD BY: Arianne Galicia ENTERED: 07/09/20 13:12 SP TYPE: Fluid OTHR DR: Dr. Aleksandr Duarte, DO Tissues: Urine Procedures: Special Stain Group II Cytospin Fluid HEADER OPERATION: Not noted PRE-OP DIAGNOSIS: Malignant neoplasm of bladder TISSUE SUBMITTED: Urine for cytology DIAGNOSIS CYTOLOGY Urine for cytology (cytospin): Negative for malignant cells. See comment. AM:carlotta 07/10/20 COMMENT Small collections of acute inflammatory cells are noted. CYTOLOGY STUDY Slides are reviewed. CYTOLOGY GROSS Received is 100 ml of dark yellow cloudy fluid labeled with the patient's name and and designated per the requisition as urine. Submitted for cytology preparation. / carlotta 07/09/20 TC:5 CPT: 44027
[2020-07-09 11:30] LABS: Cytology, Body Fluid / CSF SEE PATHOLOGY REPORT
== END ==
PROVIDERS: PCP Family Medicine; Visit Provider Urology
DX: Z85.51 Personal history of malignant neoplasm of bladder (principal)
CPT/HCPCS: 88108; 88313

== ENCOUNTER → 2020-08-28 14:29 | Outpatient (CLI) | payer OTHER, MEDICARE, SELFPAY ==
[2020-08-27 10:47] VITALS: BMI 31.9
== END ==
PROVIDERS: PCP Family Medicine; Referring Provider Nurse Practitioner Family; Visit Provider Nurse Practitioner Family
DX: R05 Cough (principal)
CPT/HCPCS: 87635; U0003

== ENCOUNTER 2020-08-28 15:08 | Inpatient (IN) | payer OTHER, MEDICARE, SELFPAY ==
[2020-08-27 10:47] VITALS: BMI 31.9
[2020-08-28 15:08] VITALS: BP 174/93; PULSE 72; RESP 22; O2SAT 95
[2020-08-28 15:09] VITALS: BP 166/106; PULSE 90; RESP 28; TEMP 36.4; O2SAT 97; BMI 32.5
--- NOTE | 2020-08-28 16:13 | EKG12_ITS ---
Test Reason : SOB Blood Pressure : / mmHG Vent. Rate : 069 BPM Atrial Rate : 069 BPM P-R Int : 164 ms QRS Dur : 100 ms QT Int : 396 ms P-R-T Axes : 051 040 042 degrees QTc Int : 424 ms Normal sinus rhythm Normal ECG Confirmed by BAM BENTLEY, HALEY ([id number]), technical editor SALOMON ROSADO ([id number]) on 08/30/2020 1:59:58 PM Referred By: Luis E Aguillon Confirmed By:HALEY KUHN MD
--- NOTE | 2020-08-28 16:15 | ED.DCSUM_ITS ---
History of Present Illness Chief Complaint: Shortness of Breath Informant: Patient Narrative: 59-year-old male with history of diabetes, hypertension, Morgan, hemochromatosis presenting with body aches, chills, shortness of breath. He states that he started feeling ill on Wednesday which makes this day 3. He states that his felt ill on Wednesday and had chills and a headache. He states he has not had a fever. He does admit to loss of taste and smell. Patient states that he smokes less than a pack a day usually. He is not been able to smoke cigarettes since Wednesday. He states he had to stop 2 times in the parking lot while walking in. 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, H63D Mild Fe overload (3) Dyslipidemia Status: Chronic Past Medical History - Allergies and Home Meds Allergies/Adverse Reactions: Allergies lorazepam [From Ativan] Allergy (Severe, Verified 08/28/20 15:13) Other cephalexin [From Keflex] Adverse Reaction (Severe, Verified 08/28/20 15:13) Nausea/Vom/Diarrhea fluoxetine HCl [From Prozac] Adverse Reaction (Severe, Verified 08/28/20 15:13) Vomiting morphine Adverse Reaction (Severe, Verified 08/28/20 15:13) Rash oxycodone Adverse Reaction (Severe, Verified 08/28/20 15:13) Hives pregabalin [From Lyrica] Adverse Reaction (Severe, Verified 08/28/20 15:13) hypotension BLOOD PRESSURE DROPS Prior records reviewed: Yes Past Medical History: - - Reviewed in problem list Surgical History: appendectomy, cholecystectomy, herniorrhaphy, rotator cuff repair, - - Bladder surgery, neck surgery Lives: Spouse/ Significant Other Smoking Status: Current every day smoker - Family History Paternal Family History: Family History (Last Reviewed 06/04/20 @ 13:[address] Vern Rose MD) Father Prostate cancer Heart disease Grandfather Diabetes Grandmother Diabetes Mother Hypertension Heart disease Sister Hypertension Family History: Reports: No pertinent history Maternal Family History: Family History (Last Reviewed 06/04/20 @ 13:[address] Vern Rose MD) Father Prostate cancer Heart disease Grandfather Diabetes Grandmother Diabetes Mother Hypertension Heart disease Sister Hypertension Family History: Reports: No pertinent history Review of Systems General: Reports: Chills, Malaise Eyes: Denies: Visual changes - bilaterally, Diplopia ENT: Reports: - - Loss of taste and smell. Denies: Rhinorrhea Cardiovascular: Denies: Chest pain, Palpitations Respiratory: Reports: Dyspnea, Cough, Dyspnea on exertion Gastrointestinal: Reports: Nausea, - - Decreased appetite. Denies: Abdominal pain, Vomiting Genitourinary: Denies: Dysuria, Hematuria Musculoskeletal: Reports: Myalgias. Denies: Arthralgias, Neck pain Skin: Denies: Rash, Abscess Neurological: Reports: Headache. Denies: Parasthesia, Numbness Psych: Denies: Depression, Anxiety Physical Exam Vital Signs/Narrative: Vital Signs Temp Pulse Resp BP Pulse Ox 08/28/20 15:09 97.5 F L 90 28 H 166/106 H 97 08/28/20 15:08 72 22 H 174/93 H 95 General: Well nourished, No Acute Distress Head: Normocephalic, Atraumatic Eyes: Perrl, EOMI ENT: Dry mucous membranes. Negative for: Nasal congestion Cardiovascular: Regular rate, Regular rhythm Respiratory: No distress, CTA bilaterally, Diminished Abdomen: Soft, Nontender, Nondistended Rectal: Deferred Extremities: Nontender, No edema Skin: Normal color, No rash. Negative for: Cyanosis, Diaphoresis Neurological: Alert, Oriented x3 Psychological: Normal affect, Normal Mood Diagnostic/Tx/Re-eval Clinical Impression(s) from Imaging Studies Chest CTA 08/28/20 16:17 IMPRESSION: CTA chest examination, without a demonstrated pulmonary embolism or arterial dissection. Stable right middle lobe nodule. Electronically Signed: Camron Melendez MD at 19:01 EST , Service support , Chest X-Ray 08/28/20 16:25 IMPRESSION: No acute cardiopulmonary disease. Electronically Signed: Camron Melendez MD at 16:59 EST , Service support , Laboratory Data 08/28/20 08/28/20 08/28/20 17:27 17:27 17:27 WBC 7.2 RBC 5.38 Hgb 17.3 H Hct 48.9 MCV 90.9 MCH 32.2 H MCHC 35.4 RDW Std Deviation 43.8 RDW Coeff of Marlene 13.1 Plt Count 175 MPV 10.1 Immature Gran % (Auto) 0.300 Neut % (Auto) 88.7 H Lymph % (Auto) 9.3 L [place] % (Auto) 1.5 Eos % (Auto) 0.1 Baso % (Auto) 0.1 Absolute Neuts (auto) 6.4 Absolute Lymphs (auto) 0.67 L Nucleated RBC % 0 D-Dimer Quant (PE/DVT) < 0.27 L Sodium 139 Potassium 4.0 Chloride 106 Carbon Dioxide 27.0 Anion Gap 6 BUN 16 Creatinine 0.89 Estim Creat Clear Calc 100.51 Est GFR (MDRD) Af Amer 114 Est GFR (MDRD) Non-Af 94 BUN/Creatinine Ratio 18.1 Glucose 125 H Lactic Acid Calcium 8.8 Total Bilirubin 0.80 AST 27 ALT 54 Alkaline Phosphatase 113 Troponin I < 0.015 Total Protein 7.9 Albumin 4.1 Globulin 3.8 Albumin/Globulin Ratio 1.1 Procalcitonin COVID-19 (ZAC) 08/28/20 08/28/20 08/28/20 17:27 17:27 19:45 WBC RBC Hgb Hct MCV MCH MCHC RDW Std Deviation RDW Coeff of Marlene Plt Count MPV Immature Gran % (Auto) Neut % (Auto) Lymph % (Auto) [place] % (Auto) Eos % (Auto) Baso % (Auto) Absolute Neuts (auto) Absolute Lymphs (auto) Nucleated RBC % D-Dimer Quant (PE/DVT) Sodium Potassium Chloride Carbon Dioxide Anion Gap BUN Creatinine Estim Creat Clear Calc Est GFR (MDRD) Af Amer Est GFR (MDRD) Non-Af BUN/Creatinine Ratio Glucose Lactic Acid 1.3 Calcium Total Bilirubin AST ALT Alkaline Phosphatase Troponin I Total Protein Albumin Globulin Albumin/Globulin Ratio Procalcitonin 0.07 COVID-19 (ZAC) Not Detected - Rhythm Strip Rhythm Strip: Sinus Rhythm Rate: 69 - EKG Initial EKG Interpretation: Sinus Rhythm, No Acute Injury Pattern - Medical Decision Making Patient presents with shortness of breath and is concerned for Covid?19. Initially he was hypoxic down to 90 percent on room air. Afterwards it was noted that he was not hypoxic and was at 96%. He was ambulated on room air and maintain sats of 96% although he was tachypneic and tachycardic with this. He had an EKG which showed sinus rhythm at 69 bpm without signs of ischemic change. Chest x-ray was negative as read by myself and the radiologist. Lab work shows he is lymphopenic and leukopenic. Troponin is negative. Covid rapid antigen was also negative. D-dimer was negative. Given his negative Covid I did obtain a CTA of his chest which was also negative for PE and any acute process. Patient had a Covid PCR which was also negative. Patien did become hypoxic down to the 87% with good waveforms. Given that he is hypoxic he will need to be admitted to the hospital. Discussed with hospitalist who determined he would send him to the Covid cohort given his labs and symptoms. Impression: 1. Viral syndrome 2. Hypoxia ED Disposition - Plan for ED Patient: Disposition: Acute Care Hospital [facility]
--- NOTE | 2020-08-28 16:17 | CT_ITS ---
STUDY: CTA CHEST REASON FOR EXAM: Male, 59 years old. HYPOXIA/COUGH/SOB,NO TASTE OR SMELL, HX HTN, BLADDER CA, CIRRHOSIS-HEMOCHROMATOSIS, HX PE, POWER PORT RADIATION DOSAGE (If Supplied By Facility): CTDIvol = ( 12.56 ) mGy, DLP = ( 520.37 ) mGycm TECHNIQUE: The examination was performed with the intravenous administration of 100mL Isovue-370. Post-processing of the angiographic images was performed, with multiplanar reformation and 3D reconstruction. Individualized dose optimization techniques were used for this CT. COMPARISON: Chest x-ray August 28, 2020. Chest CT January 30, 2020. FINDINGS: Port on the right extends to the right atrium Normal enhancement of the main pulmonary artery and right and left pulmonary arteries. Normal enhancement of the bilateral peripheral pulmonary arteries. There is no demonstrated pulmonary embolism. Normal thoracic aorta and visualized great vessels. There is no demonstrated aortic dissection. Normal heart and pericardium. Normal mediastinum. Normal hilar regions. Normal visualized trachea and bronchi. The lungs are well expanded. There is stable 0.6 cm right middle lobe nodule, series 2 image 75/245. Normal pleura. Normal chest wall structures. There is mild degenerative change of the spine. Postoperative change of the cervical spine. There is degenerative change of the shoulders. There is hepatosplenomegaly. CT/CTA Chest W/WO Contrast IMPRESSION: CTA chest examination, without a demonstrated pulmonary embolism or arterial dissection. Stable right middle lobe nodule. Electronically Signed: Camron Melendez MD at 19:01 EST , Service support ,
--- NOTE | 2020-08-28 16:25 | RAD_ITS ---
STUDY: X-RAY CHEST REASON FOR EXAM: Male, 59 years old. COUGH, BODY ACHES, SOB WORSE WITH EXERTION, JOINT PAIN, HEADACHE. DIARRHEA, MULTIPLE TODAY. NO TASTE OR SMELL. TECHNIQUE: Single AP portable view of the chest. COMPARISON: August 13, 2017 FINDINGS: Port on the right extends to the superior vena cava. There are monitoring devices. The lungs are clear and expanded. There is no demonstrated pleural abnormality. Normal size heart. Normal mediastinum and jaxson. Normal visualized pulmonary arteries. Normal visualized aortic arch and descending thoracic aorta. Normal visualized thoracic spine. There is postoperative change of the cervical spine. Normal visualized ribs, clavicles, and shoulders. There is no demonstrated abnormality of the visualized soft tissue structures of the upper abdomen. RAD/Chest 1 View (Portable) IMPRESSION: No acute cardiopulmonary disease. Electronically Signed: Camron Melendez MD at 16:59 EST , Service support ,
[2020-08-28 17:25] VITALS: BP 158/100; PULSE 63; RESP 18; O2SAT 96
[2020-08-28] MEDS: Acetaminophen 500 MG Tablet 1000 MG PO (17:35)
[2020-08-28] MEDS: Ondansetron 4 MG/2 ML Vial IM (17:35)
[2020-08-28 17:42] VITALS: O2SAT 96
[2020-08-28 17:49] LABS: Absolute Lymphocyte Count 0.67 X10^3/uL (0.83-4.51); Absolute Neutrophil Count 6.4 X10^3/uL (2.0-7.7); Basophil# 0.01 X10^3/uL; Basophil% 0.1 % (0-1); Eosinophil# 0.01 X10^3/uL; Eosinophils% 0.1 % (0-5); Hematocrit 48.9 % (40-54); Hemoglobin 17.3 g/dL (13.0-16.5); Lymphocyte # 0.67 X10^3/ul (4.0); Lymphocyte % 9.3 % (19-41); Mean Corp Hgb Conc 35.4 g/dL (32-36); Mean Corpuscular Hgb 32.2 pg (27.0-32.0); Mean Corpuscular Volume 90.9 fL (80-94); Mean Platelet Vol. 10.1 fl (6.2-12.0); Monocyte# 0.11 X10^3/uL; Monocyte% 1.5 % (0-10); NRBC Flagged by Analyzer 0 % (0-5); Neutrophil # 6.41 X10^3/uL (2.7-7.7); Neutrophil % 88.7 % (47-70); Platelet Count 175 K/mm3 (150-450); RBC Distribution Width CV 13.1 % (11.6-14.6); RBC Distribution Width SD 43.8 fl (35.1-43.9); Red Blood Count 5.38 M/mm3 (4.6-6.2); White Blood Count 7.2 K/mm3 (4.4-11.0)
[2020-08-28 18:04] LABS: ALB/GLOB Ratio 1.1 RATIO (0.9-2.4); AST(SGOT) 27 U/L (15-37); Alanine Aminotransfer ALT/SGPT 54 U/L (16-61); Albumin, Serum 4.1 g/dL (3.2-5.0); Alkaline Phosphatase 113 U/L (45-117); Anion Gap 6 (5-15); BUN 16 mg/dL (7-18); BUN/Creat Ratio 18.1 RATIO (10-20); Calcium,Total 8.8 mg/dL (8.5-10.1); Chloride 106 mmol/L (98-107); Creatinine, Serum 0.89 mg/dL (0.70-1.30); EST Glomerular Filtration Rate 94 mL/min (>60); Est Glom Filt Rate - Afr Amer 114 mL/min (>60); Estimated Creatinine Clearance 100.51 ml/min; Globulin 3.8 g/dL (2.2-4.2); Glucose 125 mg/dL (74-106); Protein, Total 7.9 g/dL (6.4-8.2); Sodium Level 139 mmol/L (136-145)
[2020-08-28 18:07] LABS: Lactic Acid 1.3 mmol/L (0.4-1.9); Procalcitonin 0.07 ng/mL (0.00-0.09)
[2020-08-28 18:08] LABS: D-Dimer Quantitative (DVT/PE) < 0.27 FEU/ug/m (0.27-0.49)
[2020-08-28 19:25] VITALS: O2SAT 87
[2020-08-28 20:00] VITALS: BP 157/104; PULSE 59; RESP 18; TEMP 36.4; O2SAT 95
--- NOTE | 2020-08-28 23:50 | HP.PCM_ITS ---
Problem List (1) Respiratory insufficiency Status: Acute (2) Essential hypertension Status: Chronic (3) Hemochromatosis Status: Chronic Qualifiers: Hemochromatosis type: hereditary Qualified Code(s): E83.110 - Hereditary hemochromatosis Comment: Compound Heterozygous C282Y, H63D Mild Fe overload (4) Spondylosis Status: Chronic (5) Hx of bladder cancer Status: Chronic (6) Dyslipidemia Status: Chronic (7) Nicotine addiction Status: Chronic Qualifiers: Nicotine product type: cigarettes Substance use status: uncomplicated Qualified Code(s): F17.210 - Nicotine dependence, cigarettes, uncomplicated (8) Status post cervical spinal fusion Status: Chronic (9) Hx of fusion of cervical spine Status: Chronic (10) Cervical stenosis of spine Status: Chronic (11) Diabetes Status: Chronic Qualifiers: Diabetes mellitus type: type 2 Diabetes mellitus intermediate manager insulin use: with intermediate use Diabetes mellitus complication status: with unspecified complications (12) CHERY (nonalcoholic steatohepatitis) Status: Chronic (13) History of pulmonary embolism Status: Chronic (14) Tenosynovitis of left hand Status: Chronic (15) Encounter for screening for lung cancer Status: Chronic Comment: Due for LDCT 12/2019 (16) Carpal tunnel syndrome on both sides Status: Chronic (17) Pain pump Status: Chronic Comment: Prialt (18) Lupus Status: Chronic Comment: Was told he has but never saw confirmation from tests performed (19) Bladder cancer Status: Chronic Comment: 01/16/2009 - Dr. [facility] received 8 chemo tx of BCG; cancer returned 3 years later and received another chemo tx of BCG (20) Bone spur of foot Status: Chronic Comment: pins/rods in feet (21) Cirrhosis Status: Chronic (22) History of pulmonary embolus (PE) Status: Chronic (23) PORT PLACEMENT Status: Chronic Comment: DR. ROSE x2 (first one became infected) (24) Hereditary hemochromatosis Status: Chronic (25) Hypercoagulable state Status: Chronic History of Present Illness Date of Admission: 08/28/20 Chief Complaint: SOB The patient is a 59 year old M with a significant history of tobacco abuse; chronic pain; C3-T1 fusion with a pain pump; and hemochromatosis who presents to the emergency department with a 3-day history of persistent shortness of b reath. Associated with his symptoms is diffuse muscle aches. Also he has lost his taste and his smell sensation. Patient feels fatigued. He has insomnia. He has no appetite. He has diarrhea. His daughter who he has come in contact with was at a senior care. Patient and have chills and symptoms of the patient has. Past Medical History Past Medical History (Chronic Problems): Chronic Problems (Last Reviewed 06/04/20 @ 13:[address] Vern Rose MD) Essential hypertension (Chronic) Hemochromatosis (Chronic) Compound Heterozygous C282Y, H63D Mild Fe overload Spondylosis (Chronic) Hx of bladder cancer (Chronic) Dyslipidemia (Chronic) Nicotine addiction (Chronic) Status post cervical spinal fusion (Chronic) Hx of fusion of cervical spine (Chronic) Cervical stenosis of spine (Chronic) Diabetes (Chronic) CHERY (nonalcoholic steatohepatitis) (Chronic) History of pulmonary embolism (Chronic) Tenosynovitis of left hand (Chronic) Encounter for screening for lung cancer (Chronic) Due for LDCT 12/2019 Carpal tunnel syndrome on both sides (Chronic) Pain pump (Chronic) Prialt Lupus (Chronic) Was told he has but never saw confirmation from tests performed Bladder cancer (Chronic) 01/16/2009 - Dr. [facility] received 8 chemo tx of BCG; cancer returned 3 years later and received another chemo tx of BCG Bone spur of foot (Chronic) pins/rods in feet Cirrhosis (Chronic) History of pulmonary embolus (PE) (Chronic) PORT PLACEMENT (Chronic) DR. ROSE x2 (first one became infected) Hereditary hemochromatosis (Chronic) Hypercoagulable state (Chronic) Medical History: Medical History (Last Reviewed 08/29/20 @ 05:[address] Luis E Aguillon MD) Carpal tunnel syndrome on both sides (Chronic) G56.03 Pain pump (Chronic) Prialt Lupus (Chronic) L93.0 Was told he has but never saw confirmation from tests performed Bladder cancer (Chronic) C67.9 01/16/2009 - Dr. [facility] received 8 chemo tx of BCG; cancer returned 3 years later and received another chemo tx of BCG Bone spur of foot (Chronic) M77.50 pins/rods in feet Cirrhosis (Chronic) K74.60 History of pulmonary embolus (PE) (Chronic) Z86.711 PORT PLACEMENT (Chronic) DR. 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 07-25-19 Nausea R11.0 Hypertension I10 Allergies lorazepam [From Ativan] Allergy (Severe, Verified 08/28/20 15:13) Other cephalexin [From Keflex] Adverse Reaction (Severe, Verified 08/28/20 15:13) Nausea/Vom/Diarrhea fluoxetine HCl [From Prozac] Adverse Reaction (Severe, Verified 08/28/20 15:13) Vomiting morphine Adverse Reaction (Severe, Verified 08/28/20 15:13) Rash oxycodone Adverse Reaction (Severe, Verified 08/28/20 15:13) Hives pregabalin [From Lyrica] Adverse Reaction (Severe, Verified 08/28/20 15:13) hypotension BLOOD PRESSURE DROPS Home Medications: Ambulatory Orders Medication Instructions Recorded ziconotide 25 mcg/mL intrathecal 0.05 mcg/hr INTRATH UD 01/17/19 solution Amlodipine Besylate [Norvasc] 10 mg PO DAILY 01/16/20 Lisinopril [Zestril] 10 mg PO DAILY 01/16/20 HYDROmorphone tablet [Dilaudid] 2 mg PO Q12H 08/28/20 albuterol sulfate 90 mcg/actuation 1 - 2 puff INHALATION Q6H PRN #8.5 08/28/20 aerosol inhaler g azithromycin 250 mg tablet See Rx Instructions PO .COMPLEX #6 08/28/20 tab prednisone 10 mg tablet See Rx Instructions PO QDAY #30 tab 08/28/20 Surgical History: Surgical History (Last Reviewed 08/29/20 @ 05:[address] Luis E Aguillon MD) History of appendectomy Z90.49 History of carpal tunnel surgery of left wrist Z98.890 10/2019 History of carpal tunnel surgery of right wrist Z98.890 07/2018 History of cholecystectomy Z90.49 History of deviated nasal septum Z87.09 15 surgeries - Dr. Choe and [facility] History of spinal fusion Z98.1 T1-C3 fusion at [facility] by Dr. Crawford on 11/03/17 Surgical History: appendectomy, cholecystectomy, herniorrhaphy, rotator cuff repair, - - Bladder surgery, neck surgery Psychiatric History: Anxiety Lives: Spouse/ Significant Other Smoking Status: Current every day smoker - *Family History Paternal Family History: Family History (Last Reviewed 08/29/20 @ 05:[address] Luis E Aguillon MD) Father Prostate cancer Heart disease Grandfather Diabetes Grandmother Diabetes Mother Hypertension Heart disease Sister Hypertension History Items: No pertinent history Maternal Family History: Family History (Last Reviewed 08/29/20 @ 05:[address] Luis E Aguillon MD) Father Prostate cancer Heart disease Grandfather Diabetes Grandmother Diabetes Mother Hypertension Heart disease Sister Hypertension History Items: No pertinent history Review of Systems Constitutional: Reports: Anorexia, Chills, Malaise, Weakness, Fatigue. Denies: Fever, Weight Change HEENT: Denies: Head Aches, Sinus Congestion, Sinus Drainage Cardiovascular: Denies: Chest Pain, Palpitations Respiratory: Reports: Cough, Shortness of Breath, Sputum production - Yellow Gastrointestinal: Reports: Diarrhea. Denies: Abdominal Pain, Nausea, Vomiting Genitourinary: Denies: Dysuria Musculoskeletal: Denies: Joint Pain, Joint Tenderness Skin: Denies: Rash, Wounds Neurological: Denies: Numbness, Tingling, Focal weakness Psychiatric: Denies: Anxiety, Depression, Homicidal Ideations, Suicidal Ideations Hematologic/ Lymphatic: Denies: Easy Bruising, Easy Bleeding VTE Information - Inpt Only VTE Present on Admission: No VTE Mechan Device Prophylaxis: None VTE Pharm Prophylaxis ordered?: Yes Patient Problems: Active and Suspected Problems (Last Reviewed 06/04/20 @ 13:[address] Vern Rose MD) Respiratory insufficiency (Acute) - Physical Exam Vitals/I&O's: Vital Signs Temp Pulse Resp BP Pulse Ox 97.5 F L 59 L 18 157/104 H 95 08/28/20 20:00 08/28/20 20:00 08/28/20 20:00 08/28/20 20:00 08/28/20 20:00 Oxygen Flow Rate (L/min) 2 Oxygen Delivery Method Nasal Cannula Weight: 108.862 kg Body Mass Index (BMI) 32.5 Finger Stick Blood Glucose 96 Intake and Output for Last 24 Hours 08/26/20 08/27/20 08/28/20 23:59 23:59 23:59 Intake Total 500 / 500 Balance 500 / 500 General: Alert, Oriented x3, Cooperative HEENT: Atraumatic, PERRLA, EOMI, Normocephalic Neck: Supple, No JVD, Negative Carotid Bruits Lungs: Clear to auscultation, Normal air movement, - - Port-A-Cath on chest. Cardiovascular: Regular rate, Regular Rhythm, Normal S1, Normal S2, No murmurs Abdomen: Bowel Sounds Present, Soft, Non Tender Extremities: No edema, Capillary Refill Less than 3 Seconds Skin: No rashes, No breakdown Musculoskeletal: No Tenderness to Palpation of Joints or Extremities Neurological: Cranial nerves II-XII grossly intact Psych/Mental Status: Normal Affect, Appropriate Microbiology Past 72 Hours 08/28/20 17:47 Mucosa - Nasopharyngeal SARS-CoV-2 Antigen (Rapid) - Final Laboratory Results 08/28/20 17:27: WBC 7.2, RBC 5.38, Hgb 17.3 H, Hct 48.9, MCV 90.9, MCH 32.2 H, MCHC 35.4, RDW Std Deviation 43.8, RDW Coeff of Marlene 13.1, Plt Count 175, MPV 10.1, Immature Gran % (Auto) 0.300, Neut % (Auto) 88.7 H, Lymph % (Auto) 9.3 L, [place] % (Auto) 1.5, Eos % (Auto) 0.1, Baso % (Auto) 0.1, Absolute Neuts (auto) 6.4, Absolute Lymphs (auto) 0.67 L, Nucleated RBC % 0 08/28/20 17:27: D-Dimer Quant (PE/DVT) < 0.27 L 08/28/20 17:27: Sodium 139, Potassium 4.0, Chloride 106, Carbon Dioxide 27.0, Anion Gap 6, BUN 16, Creatinine 0.89, Estim Creat Clear Calc 100.51, Est GFR (MDRD) Af Amer 114, Est GFR (MDRD) Non-Af 94, BUN/Creatinine Ratio 18.1, Glucose 125 H, Calcium 8.8, Total Bilirubin 0.80, AST 27, ALT 54, Alkaline Phosphatase 113, Troponin I < 0.015, Total Protein 7.9, Albumin 4.1, Globulin 3.8, Albumin/Globulin Ratio 1.1 08/28/20 17:27: Lactic Acid 1.3 08/28/20 17:27: Procalcitonin 0.07 08/28/20 19:45: COVID-19 (ZAC) Not Detected Assessment/Plan All Active Problems (Last Reviewed 06/04/20 @ 13:[address] Vern Rose MD) Respiratory insufficiency (Acute) Personal history of DVT (deep vein thrombosis) (Resolved) Pulmonary embolism (Resolved) Acute hypoxemic respiratory insufficiency Oxygen saturation of 87% on room air and required supplemental oxygenation. Supplemental oxygenation continued. Etiology is unclear. Rapid antigen for COVID-19 check troponin was negative. Chest x-ray was not impressive. Chest CTA was not impressive. Patient report that his who works at the [employer] also has chills and similar symptoms. Her daughter works at a senior care. Although Covid test so far is negative it may be too early in its course. Patient with normal white count but with neutrophilia and lymphopenia. Patient went to see his PCP on the same day of presentation and was started on Z-Nolberto and prednisone. We will hold off Z-Nolberto at this time. Stop prednisone. Will start patient on Decadron. Consider ID/pulmonary medicine consult. Check ferritin; triglycerides and procalcitonin. Tylenol for fever and Mucinex for cough ordered. Blood culture x2 ordered emergency department; follow results. Proair as needed ordered. Loperamide as needed for diarrhea. Discussed with emergency department doctor to get rapid flu test. Will order comprehensive respiratory pathogen panel. Oxygen per protocol ordered. Continue enhanced droplet precaution and keep on Covid alcohol unit for now.. Chronic pain with C3-T1 fusion. With a pain pump. Dilaudid as needed continued. DVT prophylaxis Subcutaneous Lovenox ordered. OBSV E&M: [id number] Initial observation care L3
[2020-08-29] VITALS (15 sets, daily range): BP systolic 112–154; BP diastolic 64–125; PULSE 64–95; RESP 16–24; TEMP 36.4–36.9; O2SAT 91–98; BMI 32.3
--- NOTE | 2020-08-29 00:19 | ED.RN ---
this nurse called Deandra, pt's daughter, and updated her on pt going to [id number].
--- NOTE | 2020-08-29 00:38 | ED.RN ---
DR. NGUYEN AND HOSPITALIST AGREE, PT SHOULD BE ADMITTED TO THE COVID UNIT NOT [facility], ATTEMPTED TO CALL PT'S DAUGHTER AND INFORM HER OF SAME AND TO SELF QUARANTINE PER GUIDELINES.
[2020-08-29 02:00] LABS: Ferritin 297 ng/mL (26-388); Triglycerides 471 mg/dL
[2020-08-29] MEDS: guaiFENesin 1,200 MG Tablet 1200 MG PO ×2 (02:13→19:53)
[2020-08-29] MEDS: HYDROmorphone 2 MG TABLET PO ×2 (02:17→19:52)
[2020-08-29] MEDS: dexAMETHasone 10 MG/ML Vial 6 MG IV (02:18)
[2020-08-29 05:42] LABS: Procalcitonin < 0.04 ng/mL (0.00-0.09)
[2020-08-29 06:50] LABS: Absolute Lymphocyte Count 0.86 X10^3/uL (0.83-4.51); Absolute Neutrophil Count 8.2 X10^3/uL (2.0-7.7); Basophil# 0.02 X10^3/uL; Basophil% 0.2 % (0-1); Eosinophil# 0.01 X10^3/uL; Eosinophils% 0.1 % (0-5); Hemoglobin 16.7 g/dL (13.0-16.5); Lymphocyte # 0.86 X10^3/ul (4.0); Lymphocyte % 9.2 % (19-41); Mean Corp Hgb Conc 34.1 g/dL (32-36); Mean Corpuscular Hgb 31.2 pg (27.0-32.0); Mean Corpuscular Volume 91.4 fL (80-94); Mean Platelet Vol. 10.1 fl (6.2-12.0); Monocyte# 0.21 X10^3/uL; Monocyte% 2.3 % (0-10); NRBC Flagged by Analyzer 0 % (0-5); Neutrophil # 8.17 X10^3/uL (2.7-7.7); Neutrophil % 87.9 % (47-70); Platelet Count 206 K/mm3 (150-450); RBC Distribution Width CV 13.2 % (11.6-14.6); RBC Distribution Width SD 44.9 fl (35.1-43.9); Red Blood Count 5.36 M/mm3 (4.6-6.2); White Blood Count 9.3 K/mm3 (4.4-11.0)
[2020-08-29 07:25] LABS: ALB/GLOB Ratio 1.2 RATIO (0.9-2.4); AST(SGOT) 23 U/L (15-37); Alanine Aminotransfer ALT/SGPT 50 U/L (16-61); Albumin, Serum 4.1 g/dL (3.2-5.0); Alkaline Phosphatase 110 U/L (45-117); Anion Gap 9 (5-15); BUN 17 mg/dL (7-18); BUN/Creat Ratio 20.9 RATIO (10-20); Calcium,Total 9.1 mg/dL (8.5-10.1); Chloride 103 mmol/L (98-107); Creatinine, Serum 0.81 mg/dL (0.70-1.30); EST Glomerular Filtration Rate 104 mL/min (>60); Est Glom Filt Rate - Afr Amer 126 mL/min (>60); Estimated Creatinine Clearance 110.44 ml/min; Globulin 3.4 g/dL (2.2-4.2); Glucose 125 mg/dL (74-106); Potassium 4.4 mmol/L (3.5-5.1); Protein, Total 7.5 g/dL (6.4-8.2); Sodium Level 137 mmol/L (136-145)
--- NOTE | 2020-08-29 07:34 | NURSING ---
pt daughter Deandra called in to check on the pt. Stated her dad called his and stated he was on 4-6 L of oxygen and he isn't doing well. This RN called back to the pt's room and asked if he wanted me to give his daughter Deandra information about how he is doing and his plan of care. Pt stated it was okay to talk to Deandra. Discussed vitals, oxygen -pt is on 2L NC, meds, and how he is doing. Deandra stated she would be the one to call in and she would update her mom.
[2020-08-29] MEDS: Enoxaparin 30 MG/0.3 ML Syringe SC ×2 (07:56→19:53)
[2020-08-29] MEDS: Lisinopril 10 MG Tablet PO (07:58)
[2020-08-29] MEDS: amLODIPine 10 MG Tablet PO (07:59)
--- NOTE | 2020-08-29 08:02 | NURSING ---
ISOLATION - ENHANCED COVID
[2020-08-29] MEDS: 0.9% Saline Lock 10 ML Syringe IV (11:43)
[2020-08-29 11:48] LABS: Alkaline Phosphatase 112 U/L (45-117)
--- NOTE | 2020-08-29 13:39 | CASEMGMT ---
RN CM Assessment Note Introduced role of CM to patient via phone to room. Demographics, PCP verified. Diagnosis: COVID 19 PCP: kDr. Duarte Specialists: psychiatrist in [place] and neurologist @ [facility] Insurance: [employer] Preferred Pharmacy: [facility] [place] Prescription Benefit: yes LNOK: , Branden Cool Living Arrangements: Lives in ranch home with his . Pt states due to cervical neck surgeries, his assists with any ADL's if he is unable. Home one floor and 3 steps in. He uses a cane occasionally. Tranportation: drives or can drive DME: cane. Discussed home oxygen and if needed, will discuss InNetwork options: Humberto Chavarria [facility] HHC: [facility] HHS past SNF: [facility] In Rehab past Patient DC Goals: Home DC Plan: Home on discharge. CM available for discharge planning coordination. Contact CM for any concerns/needs that may arise. Scooter BERGREN RN ACM
--- NOTE | 2020-08-29 13:58 | PCM.PN.HOSP ---
<Cabrera Arteaga - Last Filed: 08/29/20 13:58> Reason for Visit: [email or web address] Subjective: Pt with ongoing SOB. He complains that he has aching in his chest when he breathes. He reports cough with blood and mucus production. He remains on o2 - no prior o2 requirement. He complains of fatigue, headache, loss of taste, loose stools. Vitals/I&O's: Vital Signs Temp Pulse Resp BP Pulse Ox 97.8 F 70 20 H 112/64 93 08/29/20 10:08 08/29/20 10:08 08/29/20 10:08 08/29/20 10:08 08/29/20 11:52 Oxygen Flow Rate (L/min) 2 Oxygen Delivery Method Nasal Cannula Weight: 238 lb 5.115 oz Body Mass Index (BMI) 32.3 Finger Stick Blood Glucose 96 Intake and Output for Last 24 Hours 08/27/20 08/28/20 08/29/20 23:59 23:59 23:59 Intake Total 500 / 500 200 / 200 Balance 500 / 500 200 / 200 General: Alert, Oriented x3, Cooperative HEENT: Atraumatic, PERRLA, EOMI, Normocephalic Neck: Supple, No JVD, Negative Carotid Bruits Lungs: Diminished, Wheezes Cardiovascular: Regular rate, No murmurs Abdomen: Bowel Sounds Present, Soft, Non Tender Extremities: No edema, Capillary Refill Less than 3 Seconds Skin: No rashes, No breakdown Musculoskeletal: No Tenderness to Palpation of Joints or Extremities Neurological: Cranial nerves II-XII grossly intact Psych/Mental Status: Normal Affect, Appropriate, Alert and oriented to time, place, person, mood and affect Microbiology Past 72 Hours 08/29/20 02:23 Mucosa - Nasopharyngeal Respiratory Panel (PCR) - Final 08/29/20 00:00 Mucosa - Nasopharyngeal Influenza Types A,B Direct FA (CARISA) - Final 08/28/20 17:47 Mucosa - Nasopharyngeal SARS-CoV-2 Antigen (Rapid) - Final Laboratory Results 08/28/20 17:27: WBC 7.2, RBC 5.38, Hgb 17.3 H, Hct 48.9, MCV 90.9, MCH 32.2 H, MCHC 35.4, RDW Std Deviation 43.8, RDW Coeff of Marlene 13.1, Plt Count 175, MPV 10.1, Immature Gran % (Auto) 0.300, Neut % (Auto) 88.7 H, Lymph % (Auto) 9.3 L, [place] % (Auto) 1.5, Eos % (Auto) 0.1, Baso % (Auto) 0.1, Absolute Neuts (auto) 6.4, Absolute Lymphs (auto) 0.67 L, Nucleated RBC % 0 08/28/20 17:27: D-Dimer Quant (PE/DVT) < 0.27 L 08/28/20 17:27: Sodium 139, Potassium 4.0, Chloride 106, Carbon Dioxide 27.0, Anion Gap 6, BUN 16, Creatinine 0.89, Estim Creat Clear Calc 100.51, Est GFR (MDRD) Af Amer 114, Est GFR (MDRD) Non-Af 94, BUN/Creatinine Ratio 18.1, Glucose 125 H, Calcium 8.8, Total Bilirubin 0.80, AST 27, ALT 54, Alkaline Phosphatase 113, Troponin I < 0.015, Total Protein 7.9, Albumin 4.1, Globulin 3.8, Albumin/Globulin Ratio 1.1 08/28/20 17:27: Lactic Acid 1.3 08/28/20 17:27: Procalcitonin 0.07 08/28/20 17:27: Ferritin 297, Triglycerides 471 H 08/28/20 17:27: Procalcitonin < 0.04 08/28/20 19:45: COVID-19 (ZAC) Not Detected 08/29/20 05:46: WBC 9.3, RBC 5.36, Hgb 16.7 H, Hct 49.0, MCV 91.4, MCH 31.2, MCHC 34.1, RDW Std Deviation 44.9 H, RDW Coeff of Marlene 13.2, Plt Count 206, MPV 10.1, Immature Gran % (Auto) 0.300, Neut % (Auto) 87.9 H, Lymph % (Auto) 9.2 L, [place] % (Auto) 2.3, Eos % (Auto) 0.1, Baso % (Auto) 0.2, Absolute Neuts (auto) 8.2 H, Absolute Lymphs (auto) 0.86, Nucleated RBC % 0 08/29/20 05:46: Sodium 137, Potassium 4.4, Chloride 103, Carbon Dioxide 25.0, Anion Gap 9, BUN 17, Creatinine 0.81, Estim Creat Clear Calc 110.44, Est GFR (MDRD) Af Amer 126, Est GFR (MDRD) Non-Af 104, BUN/Creatinine Ratio 20.9 H, Glucose 125 H, Calcium 9.1, Total Bilirubin 1.20 H, AST 23, ALT 50, Alkaline Phosphatase 110, Total Protein 7.5, Albumin 4.1, Globulin 3.4, Albumin/Globulin Ratio 1.2 08/29/20 05:46: Alkaline Phosphatase 112 Current Medications Acetaminophen (Acetaminophen 325 Mg Tablet) 650 mg PO Q6H PRN PRN PRN Reason: Pain Score 1-10/Temp > 100.7 F Albuterol Sulfate (Albuterol Sulfate 8 Gm Inhaler (60 Puffs)) 2 puff INHALATION Q4H PRN PRN PRN Reason: Sob/wheezing Amlodipine Besylate (Amlodipine 10 Mg Tablet) 10 mg PO DAILY [facility] Last Admin: 08/29/20 07:59 Dose: 10 mg Documented by: Dexamethasone (Dexamethasone 4 Mg Tablet) 6 mg PO DAILY [facility] Last Admin: 08/29/20 08:00 Dose: Not Given Documented by: Enoxaparin Sodium (Enoxaparin 30 Mg/0.3 Ml Syringe) 30 mg SC BID [facility] Last Admin: 08/29/20 07:56 Dose: 30 mg Documented by: Guaifenesin (Guaifenesin 1,200 Mg Tablet) 1,200 mg PO BID [facility] Last Admin: 08/29/20 07:58 Dose: Not Given Documented by: Hydromorphone HCl (Hydromorphone 2 Mg Tablet) 2 mg PO Q12 [facility] Last Admin: 08/29/20 09:56 Dose: Not Given Documented by: Sodium Chloride () 250 mls @ 15 mls/hr IV .[id number] PRN PRN Reason: Additional IVPB Infusion Last Infusion: 08/29/20 11:43 Dose: 0 mls/hr Documented by: Remdesivir 100 mg/ Sodium (Chloride) 250 mls @ 125 mls/hr IV DAILY [facility] Stop: 09/02/20 11:59 Lisinopril (Lisinopril 10 Mg Tablet) 10 mg PO DAILY [facility] Last Admin: 08/29/20 07:58 Dose: 10 mg Documented by: Loperamide HCl (Loperamide 2 Mg Capsule) 2 mg PO Q4H PRN PRN Reason: DIARRHEA/LOOSE STOOLS Melatonin (Melatonin 3 Mg Tablet) 3 mg PO QHS PRN PRN PRN Reason: INSOMNIA Miscellaneous Information (Inhaler, Assist Devices 1 Each Spacer) 1 each INHALATION Q4H PRN PRN PRN Reason: SOB/WHEEZING Ondansetron HCl (Ondansetron 4 Mg/2 Ml Vial) 4 mg IV Q8H PRN PRN PRN Reason: NAUSEA/VOMITING Sodium Chloride (0.9% Saline Lock 10 Ml Syringe) 10 - 40 ml IV UD PRN PRN Reason: SALINE FLUSH Last Admin: 08/29/20 11:43 Dose: 10 ml Documented by: STROKE Vital Signs/Narrative: Vital Signs Temp Pulse Resp BP Pulse Ox Pulse Ox Pulse Ox 08/29/20 11:52 92 93 08/29/20 10:56 96 08/29/20 10:08 97.8 F 70 20 H 112/64 96 Medical Necessity - Tobacco Use Smoking Status: Current every day smoker Assessment/Plan 1. Covid 19 - despite negative rapid antigen, pts clinical presentation c/w covid 19. Continue decadron, start remdesivir. ID consult. CXR neg. CTA with stable R middle lobe nodule. No fever. neg procalc and d dimer. some degree of lymphopenia yesterday. 2. Hx COPD - complicating the above. Continue decadron, breathing treatments, spirometer 3. Nicotine abuse - complicating the above - patch if desired 4. Hx Lupus - daily prednisone held. 5. Hx CHERY - AST/ALT/ALP normal. 6. Hx chronic back pain with pain pump in place, on chronic dilaudid. Ziconotide per pump. 7. HTN - stable 8. Hx Hemochromatosis. DVT ppx: lovenox This patient was seen by Cabrera Arteaga PA-C under the supervision of Dr. Dang. <Ger Dang E - Last Filed: 08/30/20 11:50> Vitals/I&O's: Vital Signs Temp Pulse Resp BP Pulse Ox 97.8 F 70 20 H 112/64 93 08/29/20 10:08 08/29/20 10:08 08/29/20 10:08 08/29/20 10:08 08/29/20 11:52 Oxygen Flow Rate (L/min) 2 Oxygen Delivery Method Nasal Cannula Weight: 238 lb 5.115 oz Body Mass Index (BMI) 32.3 Finger Stick Blood Glucose 96 Intake and Output for Last 24 Hours 08/27/20 08/28/20 08/29/20 23:59 23:59 23:59 Intake Total 500 / 500 200 / 200 Balance 500 / 500 200 / 200 Microbiology Past 72 Hours 08/29/20 02:23 Mucosa - Nasopharyngeal Respiratory Panel (PCR) - Final 08/29/20 00:00 Mucosa - Nasopharyngeal Influenza Types A,B Direct FA (CARISA) - Final 08/28/20 17:47 Mucosa - Nasopharyngeal SARS-CoV-2 Antigen (Rapid) - Final Laboratory Results 08/28/20 17:27: WBC 7.2, RBC 5.38, Hgb 17.3 H, Hct 48.9, MCV 90.9, MCH 32.2 H, MCHC 35.4, RDW Std Deviation 43.8, RDW Coeff of Marlene 13.1, Plt Count 175, MPV 10.1, Immature Gran % (Auto) 0.300, Neut % (Auto) 88.7 H, Lymph % (Auto) 9.3 L, [place] % (Auto) 1.5, Eos % (Auto) 0.1, Baso % (Auto) 0.1, Absolute Neuts (auto) 6.4, Absolute Lymphs (auto) 0.67 L, Nucleated RBC % 0 08/28/20 17:27: D-Dimer Quant (PE/DVT) < 0.27 L 08/28/20 17:27: Sodium 139, Potassium 4.0, Chloride 106, Carbon Dioxide 27.0, Anion Gap 6, BUN 16, Creatinine 0.89, Estim Creat Clear Calc 100.51, Est GFR (MDRD) Af Amer 114, Est GFR (MDRD) Non-Af 94, BUN/Creatinine Ratio 18.1, Glucose 125 H, Calcium 8.8, Total Bilirubin 0.80, AST 27, ALT 54, Alkaline Phosphatase 113, Troponin I < 0.015, Total Protein 7.9, Albumin 4.1, Globulin 3.8, Albumin/Globulin Ratio 1.1 08/28/20 17:27: Lactic Acid 1.3 08/28/20 17:27: Procalcitonin 0.07 08/28/20 17:27: Ferritin 297, Triglycerides 471 H 08/28/20 17:27: Procalcitonin < 0.04 08/28/20 19:45: COVID-19 (ZAC) Not Detected 08/29/20 05:46: WBC 9.3, RBC 5.36, Hgb 16.7 H, Hct 49.0, MCV 91.4, MCH 31.2, MCHC 34.1, RDW Std Deviation 44.9 H, RDW Coeff of Marlene 13.2, Plt Count 206, MPV 10.1, Immature Gran % (Auto) 0.300, Neut % (Auto) 87.9 H, Lymph % (Auto) 9.2 L, [place] % (Auto) 2.3, Eos % (Auto) 0.1, Baso % (Auto) 0.2, Absolute Neuts (auto) 8.2 H, Absolute Lymphs (auto) 0.86, Nucleated RBC % 0 08/29/20 05:46: Sodium 137, Potassium 4.4, Chloride 103, Carbon Dioxide 25.0, Anion Gap 9, BUN 17, Creatinine 0.81, Estim Creat Clear Calc 110.44, Est GFR (MDRD) Af Amer 126, Est GFR (MDRD) Non-Af 104, BUN/Creatinine Ratio 20.9 H, Glucose 125 H, Calcium 9.1, Total Bilirubin 1.20 H, AST 23, ALT 50, Alkaline Phosphatase 110, Total Protein 7.5, Albumin 4.1, Globulin 3.4, Albumin/Globulin Ratio 1.2 08/29/20 05:46: Alkaline Phosphatase 112 Current Medications Acetaminophen (Acetaminophen 325 Mg Tablet) 650 mg PO Q6H PRN PRN PRN Reason: Pain Score 1-10/Temp > 100.7 F Albuterol Sulfate (Albuterol Sulfate 8 Gm Inhaler (60 Puffs)) 2 puff INHALATION Q4H PRN PRN PRN Reason: Sob/wheezing Amlodipine Besylate (Amlodipine 10 Mg Tablet) 10 mg PO DAILY [facility] Last Admin: 08/29/20 07:59 Dose: 10 mg Documented by: Dexamethasone (Dexamethasone 4 Mg Tablet) 6 mg PO DAILY [facility] Last Admin: 08/29/20 08:00 Dose: Not Given Documented by: Enoxaparin Sodium (Enoxaparin 30 Mg/0.3 Ml Syringe) 30 mg SC BID [facility] Last Admin: 08/29/20 07:56 Dose: 30 mg Documented by: Guaifenesin (Guaifenesin 1,200 Mg Tablet) 1,200 mg PO BID [facility] Last Admin: 08/29/20 07:58 Dose: Not Given Documented by: Hydromorphone HCl (Hydromorphone 2 Mg Tablet) 2 mg PO Q12 [facility] Last Admin: 08/29/20 09:56 Dose: Not Given Documented by: Sodium Chloride () 250 mls @ 15 mls/hr IV .[id number] PRN PRN Reason: Additional IVPB Infusion Last Infusion: 08/29/20 11:43 Dose: 0 mls/hr Documented by: Remdesivir 100 mg/ Sodium (Chloride) 250 mls @ 125 mls/hr IV DAILY [facility] Stop: 09/02/20 11:59 Lisinopril (Lisinopril 10 Mg Tablet) 10 mg PO DAILY [facility] Last Admin: 08/29/20 07:58 Dose: 10 mg Documented by: Loperamide HCl (Loperamide 2 Mg Capsule) 2 mg PO Q4H PRN PRN Reason: DIARRHEA/LOOSE STOOLS Melatonin (Melatonin 3 Mg Tablet) 3 mg PO QHS PRN PRN PRN Reason: INSOMNIA Miscellaneous Information (Inhaler, Assist Devices 1 Each Spacer) 1 each INHALATION Q4H PRN PRN PRN Reason: SOB/WHEEZING Ondansetron HCl (Ondansetron 4 Mg/2 Ml Vial) 4 mg IV Q8H PRN PRN PRN Reason: NAUSEA/VOMITING Sodium Chloride (0.9% Saline Lock 10 Ml Syringe) 10 - 40 ml IV UD PRN PRN Reason: SALINE FLUSH Last Admin: 08/29/20 11:43 Dose: 10 ml Documented by: STROKE Vital Signs/Narrative: Vital Signs Pulse Ox Pulse Ox Pulse Ox 08/29/20 11:52 92 93 08/29/20 10:56 96 Assessment/Plan Hospitalist Note: I am seeing this patient in conjunction with Cabrera Arteaga. I independently seen and examined the patient. Progress note above, laboratory data and imaging studies reviewed and I concur with above treatment plan. Patient seen and examined. He still having shortness of breath but minimally improved. Reported mild cough with streaks of blood. He is afebrile, blood pressure and vitals are stable, pulse ox is 96% on 2 L. - Physical Exam General: Alert, Oriented x3, Cooperative, No apparent distress. HEENT: Atraumatic, PERRLA, EOMI. Neck: Supple, No JVD, Negative Carotid Bruits, Trachea Midline, Thyroid Normal. Lungs: Decreased with sounds bilateral, occasional wheezes, No rhonchi, No rales. Cardiovascular: Regular rate, Regular Rhythm, Normal S1, Normal S2, PMI Normal. Abdomen: Bowel Sounds Present, Soft, Non Tender, Non-Distended, No Hepato-splenomegaly. Extremities: No clubbing, No cyanosis, No edema Skin: No rashes, No breakdown Neurological: Cranial nerves are intact, neuro grossly intact Assessment and plan: #1 acute COVID-19 pneumonia: High suspicion although COVID-19 antigen and COVID-19 PCR was negative. Patient was started on IV Decadron and ID recommended to start IV remdesivir. Currently, patient is on 2 L of oxygen. Other vital signs are stable. CTA chest showed no PE or dissection. Plan to continue same treatment. #2 other chronic medical problems: Stable, continue current medications as well. This note was generated with [employer] dictation software. It may contain incorrect words, spelling, and punctuation that were not noted in checking the note before signing. Inpatient E&M: 76830 Subs Hosp L2
--- NOTE | 2020-08-29 20:01 | NURSING ---
NURSE REPORTS LT FACIAL DROOP. PT STATES NOT NORMALLY THAT WAY. TEXT SENT TO DR EAGLE AND STROKE ALERT CALLED
--- NOTE | 2020-08-29 20:10 | CT_ITS ---
STUDY: CT HEAD STROKE PROTOCOL W/O CONTRAST INJECTION REASON FOR EXAM: Male, 59 years old. CVA, LEFT SIDED WEAKNESS, FACIAL DROOP, NUMBNESS, HERE FOR COVID RADIATION DOSAGE (If Supplied By Facility): CTDIvol = ( 44.99 ) mGy, DLP = ( 846.73 ) mGycm TECHNIQUE: Transaxial CT imaging of the brain was performed without administration of intravenous contrast material. Individualized dose optimization techniques were used for this CT. COMPARISON: August 13, 2017 FINDINGS: Normal soft tissue structures. Normal calvarium. There is mild cerebral atrophy with widening of the extra-axial spaces and ventricular dilatation. Normal white matter tracts of the cerebral hemispheres. Normal basal ganglia and thalami. Normal brainstem. Normal cerebellum. There is no intracranial hemorrhage. There are no findings of an acute ischemic infarction. Normal visualized paranasal sinuses. ASPECT score: 10 CT/STROKE Brain/Head without Cont IMPRESSION: Chronic involutional changes of the brain. N.B. : The above information has been verbally conveyed by Camron Melendez MD to Dr. Luis E Aguillon MD, on 08/29/2020 20:36:39 (ET). Electronically Signed: Camron Melendez MD at 20:39 EST , Service support ,
--- NOTE | 2020-08-29 20:12 | CT_ITS ---
STUDY: CTA HEAD AND NECK WITH CONTRAST REASON FOR EXAM: Male, 59 years old. CVA RADIATION DOSAGE (If Supplied By Facility): CTDIvol = ( 15.77 ) mGy, DLP = ( 750.56 ) mGycm TECHNIQUE: CT angiography was performed with a multi-detector CT scanner. Data acquisition was obtained from the skull base through the vertex following intravenous administration of 100mL Isovue-370. MIP images were reconstructed from the axial data set. Post-processing of the angiographic images was performed, with multiplanar reformation and 3D reconstruction. Individualized dose optimization techniques were used for this CT. COMPARISON: No relevant priors. FINDINGS: Normal bilateral petrous carotid arteries. Normal right cavernous carotid artery with a normal supraclinoid bifurcation. Normal left cavernous carotid artery with a normal supraclinoid bifurcation. Normal right A1 segments of the anterior cerebral artery. Normal left A1 segments of the anterior cerebral artery. Normal intact anterior communicating artery (ACOM). Normal bilateral A2 segments of the anterior cerebral arteries. Normal right M1 and M2 segments of the middle cerebral arteries, with a normal M1 bifurcation. Normal left M1 and M2 segments of the middle cerebral arteries, with a normal M1 bifurcation. Normal right posterior communicating artery (PCOM). There is non-visualization of the left posterior communicating artery (PCOM). Normal bilateral vertebral arteries. Normal basilar artery with a normal basilar bifurcation. The visualized bilateral superior cerebellar (SCA) arteries are normal. Normal bilateral P1, P2 and visualized P3 segments of the posterior cerebral arteries. There is no demonstrated aneurysm of the [place]. There is no acute abnormality of the visualized brain. AORTIC ARCH: Normal visualized aortic arch. Normal origins of the brachiocephalic, left common carotid, and left subclavian arteries. RIGHT CAROTID ARTERIES: Normal right common carotid artery (CCA). Normal right common carotid bulb. Normal origin of the right internal carotid (ICA) artery without a hemodynamically significant stenosis. Normal visualized cervical portion of the right internal carotid artery. Normal origin of the right external carotid artery (ECA). LEFT CAROTID ARTERIES: Normal left common carotid artery (CCA). Normal left common carotid bulb. Normal origin of the left internal carotid (ICA) artery without a hemodynamically significant stenosis. Normal visualized cervical portion of the left internal carotid artery. Normal origin of the left external carotid artery (ECA). VERTEBRAL ARTERIES: Normal bilateral vertebral arteries. Other: There is central catheter on the right. There are postoperative and degenerative changes of the cervical spine. There is mucosal thickening in the paranasal sinuses. CT/CTA Head AND Neck W/ Contrast IMPRESSION: Normal CTA Head and neck with contrast. No aneurysm or large vessel occlusion. N.B. : The above information has been verbally conveyed by Camron Melendez MD to FOUZIA SIMONRUTHIE on 08/29/2020 20:39:09 (ET). Electronically Signed: Camron Melendez MD at 20:43 EST , Service support ,
[2020-08-29 20:21] LABS: Bedside Glucose 154 mg/dL (70-110)
--- NOTE | 2020-08-29 20:32 | ED.RN ---
osu beaming in at this time
--- NOTE | 2020-08-29 20:42 | ED.RN ---
osu on phone tpa not a choice at this time due to recent brain surgery, neurology to follow up
--- NOTE | 2020-08-29 21:06 | PCM.PN.BLA ---
Progress Note Nurse report reported patient was having facial drooling. Advised to call stroke alert. Patient was examined at bedside. Facial drooping not observed. Patient with some dysmetria of left side per [id number] test. Patient with mild weakness of upper and lower extremities. Patient with sensation changes on left side. Patient was taken to CT. Radiologist called stating that brain CT did not show anything acute. There was some atrophy. CT head and neck did not show any large vessel occlusion. Patient examined at the bedside by telemetry neurologist. Per Teleneurologist patient is clinically not a candidate of TPA because patient had brain surgery in the past. Impression: Likely stroke Discussed with stroke neurologist. Will start patient on aspirin and Lipitor. Will get MRI. PT and OT to work with patient. Serial NIHs. Discontinue lisinopril. Permissive hypertension with labetalol and hydralazine. Place on telemetry STROKE Vital Signs/Narrative: Vital Signs Temp Pulse Resp BP Pulse Ox 08/29/20 19:47 97.6 F L 65 24 H 118/73 95
--- NOTE | 2020-08-29 21:09 | ECHOD_ITS ---
Reason For Study: TIA/CVA Procedure This was a 2D Doppler, Color Flow transthoracic echocardiogram. Contrast injection was performed. Exam performed portable in patient room. The exam was abbreviated due to the COVID 19 protocol. Left Ventricle Normal LV size. Left ventricular systolic function is normal. The estimated ejection fraction is 65 %. Normal diastology for age. No regional wall motion abnormalities noted. Right Ventricle Normal RV size. Normal systolic function. Atria The left atrium is mildly enlarged. Normal right atrium. Bubble contrast study negative for right to left interatrial shunt. Mitral Valve Normal mitral valve. Tricuspid Valve Normal tricuspid valve. Aortic Valve Normal aortic valve. Pulmonic Valve Normal pulmonic valve. Great Vessels Normal aortic root. The pulmonary artery is normal size. Normal inferior vena cava. Pericardium/Pleural No pericardial effusion. Medication Performed a rapid injection of agitated mix of 9 cc saline and 1cc air to assess for atrial septal defect. MMode/2D Measurements & Calculations LVIDd: 4.9 cm IVSd: 1.3 cm Ao root diam: 3.7 cm LVIDs: 3.0 cm LVPWd: 1.0 cm LA dimension: 3.9 cm RVDd: 3.0 cm FS: 39.3 % LAV(MOD-bp): 55.8 ml LA A4 area: 21.4 cm2 RA A4 area: 15.1 cm2 LAV(MOD-bp) Indexed: 24.3 ml/m2 LAV(MOD-sp2): 43.8 ml LAV(MOD-sp4): 70.3 ml Time Measurements MV dec time: 0.24 sec Doppler Measurements & Calculations MV E max tong: 118.5 cm/sec Lat Peak E' Tong: 11.6 cm/sec Med Peak E' Tong: 9.9 cm/sec MV A max tong: 100.4 cm/sec E/E' lat: 10.2 E/E' med: 11.9 MV E/A: 1.2 MV V2 max: 133.9 cm/sec MV P1/2t max tong: 133.9 cm/sec Ao V2 max: 126.8 cm/sec MV max P.2 mmHg MV P1/2t: 72.2 msec Ao max P.4 mmHg MV V2 mean: 74.1 cm/sec MV dec slope: 543.0 cm/sec2 MV mean P.6 mmHg MV V2 VTI: 41.4 cm MVA(P1/2t): 3.0 cm2 LV V1 max: 114.7 cm/sec PA V2 max: 96.3 cm/sec LV V1 max P.3 mmHg Interpretation Summary Normal LV size. Left ventricular systolic function is normal. The estimated ejection fraction is 65 %. Normal diastology for age. The left atrium is mildly enlarged. Bubble contrast study negative for right to left interatrial shunt. Ordering Physician: Luis E Aguillon Referring Physician: Aleksandr Duarte Performed By: Carlos Alberto Pathak RCS
[2020-08-30] VITALS (12 sets, daily range): BP systolic 115–156; BP diastolic 67–109; PULSE 50–68; RESP 12–18; TEMP 36.5–36.8; O2SAT 95–100
--- NOTE | 2020-08-30 01:03 | NURSING ---
Pt offered rectal Tylenol for BENAVIDES at this time. States, I'll just put up with it. Will continue to monitor.
[2020-08-30 06:42] LABS: Hematocrit 45.4 % (40-54); Hemoglobin 15.4 g/dL (13.0-16.5); Mean Corp Hgb Conc 33.9 g/dL (32-36); Mean Corpuscular Hgb 31.4 pg (27.0-32.0); Mean Corpuscular Volume 92.7 fL (80-94); Platelet Count 184 K/mm3 (150-450); RBC Distribution Width CV 13.3 % (11.6-14.6); RBC Distribution Width SD 45.3 fl (35.1-43.9); White Blood Count 7.6 K/mm3 (4.4-11.0)
[2020-08-30 07:07] LABS: ALB/GLOB Ratio 1.2 RATIO (0.9-2.4); AST(SGOT) 15 U/L (15-37); Alanine Aminotransfer ALT/SGPT 38 U/L (16-61); Albumin, Serum 3.6 g/dL (3.2-5.0); Alkaline Phosphatase 98 U/L (45-117); Anion Gap 6 (5-15); BUN 26 mg/dL (7-18); BUN/Creat Ratio 29.2 RATIO (10-20); Calcium,Total 8.4 mg/dL (8.5-10.1); Chloride 105 mmol/L (98-107); Cholesterol 156 mg/dL (200); Creatinine, Serum 0.89 mg/dL (0.70-1.30); EST Glomerular Filtration Rate 93 mL/min (>60); Est Glom Filt Rate - Afr Amer 113 mL/min (>60); Estimated Creatinine Clearance 100.51 ml/min; Globulin 2.9 g/dL (2.2-4.2); Glucose 111 mg/dL (74-106); High Density Lipoprotein 41 mg/dL; Protein, Total 6.5 g/dL (6.4-8.2); Sodium Level 138 mmol/L (136-145); Triglycerides 192 mg/dL; Very Low Density Lipoprotein 38 mg/dL (5-40)
--- NOTE | 2020-08-30 10:30 | MRI_ITS ---
STUDY: MRI BRAIN WITHOUT CONTRAST REASON FOR EXAM: Male, 59 years old. L sided weakness, drooling, hypertensive emergency, covid + TECHNIQUE: Standardized multiplanar fat and water weighted pulse sequences were obtained. COMPARISON: CT August 29, 2020. FINDINGS: There is mild cerebral atrophy with widening of the extra-axial spaces and ventricular dilatation. There are a limited number of small white matter hyperintensities, distributed throughout the deep white matter tracts of the cerebral hemispheres, consistent with mild chronic white matter ischemic changes. There is no evidence for recent intracranial ischemia or other cause of cytotoxic edema on diffusion weighted imaging (DWI). Normal T2* images of the brain without demonstrated susceptibility artifact. There is no demonstrated hemosiderin stain. Normal bilateral basal ganglia. Normal thalami. There is no extra-axial fluid accumulation. Normal flow voids within the major intracranial circulation suggesting patency by spin echo criteria. There is enlargement of the sella turcica with increased CSF within the sella and flattening of the pituitary gland consistent with an empty sellar syndrome. Normal infundibular stalk, hypothalamus, and optic chiasm. Normal tectal plate and pineal gland. Normal midbrain, j luis and medulla. Normal cerebellum. Normal basal cisterns. Normal bilateral temporal bones. Normal bilateral internal auditory canals. No demonstrated orbital abnormality, within the constraints of a routine brain study. There are mucosal retention cysts or polyps of the maxillary sinuses. There is susceptibility artifact associated postoperative change of the left occipital region Normal visualized soft tissue structures. Normal visualized upper cervical spine. MRI/Brain without Contrast IMPRESSION: Involutional changes of the brain, as described above. No acute intracranial abnormality. Electronically Signed: Camron Melendez MD at 12:00 EST , Service support ,
--- NOTE | 2020-08-30 11:50 | PCM.PROGNOTE ---
Subjective: Chief complaint: Follow-up after admission for high suspicion COVID-19 infection with hypoxia, developed strokelike symptoms. Patient seen and examined. Overnight, patient developed reported left facial droop. Stroke alert was called. CT scan brain done and showed no acute findings. CTA of the head and neck was unremarkable. Patient denies any other symptoms suggestive of stroke. Today, he is off oxygen, shortness of breath improved. Still having some cough. Vital signs are stable. - Physical Exam Vitals/I&O's: Vital Signs Temp Pulse Resp BP Pulse Ox 97.8 F 50 L 16 115/67 100 08/30/20 08:55 08/30/20 08:55 08/30/20 08:55 08/30/20 08:55 08/30/20 10:10 Oxygen Flow Rate (L/min) 2 Oxygen Delivery Method Room Air Weight: 238 lb 5.115 oz Body Mass Index (BMI) 32.3 Finger Stick Blood Glucose 96 Intake and Output for Last 24 Hours 08/28/20 08/29/20 08/30/20 23:59 23:59 23:59 Intake Total 500 / 500 469.25 / 469.25 Balance 500 / 500 469.25 / 469.25 General: Alert, Oriented x3, Cooperative, No apparent distress HEENT: Atraumatic, PERRLA, EOMI, Normocephalic Oral: Moist Mucosa, No Gingival or Mucosal Lesions/ Ulcerations Neck: Supple, No JVD, Negative Carotid Bruits, Trachea Midline, Thyroid Normal Size and Texture Lungs: Clear to auscultation, No rhonchi, No rales, Diminished, Wheezes - Occasional wheezes. Cardiovascular: Regular rate, Regular Rhythm, Normal S1, Normal S2, PMI Normal Abdomen: Bowel Sounds Present, Soft, Non Tender, Non-Distended, No Hepato-splenomegaly, Obese Extremities: No clubbing, No cyanosis, No edema Skin: No rashes, No breakdown Lymphatic: No Cervical, Supraclavicular, or Inguinal Adenopathy Neurological: Cranial nerves II-XII grossly intact, Neuro grossly intact Psych/Mental Status: Normal Affect, Appropriate Microbiology Past 72 Hours 08/29/20 02:23 Mucosa - Nasopharyngeal Respiratory Panel (PCR) - Final 08/29/20 00:00 Mucosa - Nasopharyngeal Influenza Types A,B Direct FA (CARISA) - Final 08/28/20 17:47 Mucosa - Nasopharyngeal SARS-CoV-2 Antigen (Rapid) - Final Laboratory Results 08/29/20 20:14: POC Glucose 154 H 08/30/20 06:30: WBC 7.6, RBC 4.90, Hgb 15.4, Hct 45.4, MCV 92.7, MCH 31.4, MCHC 33.9, RDW Std Deviation 45.3 H, RDW Coeff of Marlene 13.3, Plt Count 184, MPV 10.0 08/30/20 06:30: Sodium 138, Potassium 4.0, Chloride 105, Carbon Dioxide 27.0, Anion Gap 6, BUN 26 H, Creatinine 0.89, Estim Creat Clear Calc 100.51, Est GFR (MDRD) Af Amer 113, Est GFR (MDRD) Non-Af 93, BUN/Creatinine Ratio 29.2 H, Glucose 111 H, Calcium 8.4 L, Total Bilirubin 0.70, AST 15, ALT 38, Alkaline Phosphatase 98, Total Protein 6.5, Albumin 3.6, Globulin 2.9, Albumin/Globulin Ratio 1.2, Triglycerides 192, Cholesterol 156, LDL Cholesterol 77, VLDL Cholesterol 38, HDL Cholesterol 41 Current Medications Acetaminophen (Acetaminophen 325 Mg Tablet) 650 mg PO Q6H PRN PRN PRN Reason: Pain Score 1-10/Temp > 100.7 F Acetaminophen (Acetaminophen 650 Mg Suppository) 650 mg RECTAL Q6H PRN PRN PRN Reason: Pain 1-10 or Fever Albuterol Sulfate (Albuterol Sulfate 8 Gm Inhaler (60 Puffs)) 2 puff INHALATION Q4H PRN PRN PRN Reason: Sob/wheezing Amlodipine Besylate (Amlodipine 10 Mg Tablet) 10 mg PO DAILY ON LICENSE OF [facility] Last Admin: 08/29/20 07:59 Dose: 10 mg Documented by: Aspirin (Aspirin 300 Mg Suppository) 300 mg RECTAL DAILY ON LICENSE OF [facility] Atorvastatin Calcium (Atorvastatin Calcium 80 Mg Tablet) 80 mg PO QHS ON LICENSE OF [facility] Last Admin: 08/29/20 22:42 Dose: Not Given Documented by: Dexamethasone Sodium Phosphate (Dexamethasone 4 Mg/Ml Vial) 6 mg IV DAILY ON LICENSE OF [facility] Enoxaparin Sodium (Enoxaparin 30 Mg/0.3 Ml Syringe) 30 mg SC BID ON LICENSE OF [facility] Last Admin: 08/29/20 19:53 Dose: 30 mg Documented by: Guaifenesin (Guaifenesin 1,200 Mg Tablet) 1,200 mg PO BID ON LICENSE OF [facility] Last Admin: 08/29/20 19:53 Dose: 1,200 mg Documented by: Hydralazine HCl (Hydralazine 20 Mg/Ml Vial) 5 mg IV Q30M PRN PRN Reason: to maintain BP goals Hydromorphone HCl (Hydromorphone 2 Mg Tablet) 2 mg PO Q12 ESHA Last Admin: 08/29/20 19:52 Dose: 2 mg Documented by: Sodium Chloride () 250 mls @ 15 mls/hr IV .[id number] PRN PRN Reason: Additional IVPB Infusion Last Infusion: 08/29/20 15:17 Dose: 0 mls/hr Documented by: Remdesivir 100 mg/ Sodium (Chloride) 250 mls @ 125 mls/hr IV DAILY ON LICENSE OF [facility] Stop: 09/02/20 11:59 Labetalol HCl (Labetalol (Prefilled) 20 Mg/4 Ml) 10 - 20 mg IV Q10M PRN PRN PRN Reason: to Maintain BP Goals Loperamide HCl (Loperamide 2 Mg Capsule) 2 mg PO Q4H PRN PRN Reason: DIARRHEA/LOOSE STOOLS Melatonin (Melatonin 3 Mg Tablet) 3 mg PO QHS PRN PRN PRN Reason: INSOMNIA Miscellaneous Information (Inhaler, Assist Devices 1 Each Spacer) 1 each INHALATION Q4H PRN PRN PRN Reason: SOB/WHEEZING Ondansetron HCl (Ondansetron 4 Mg/2 Ml Vial) 4 mg IV Q8H PRN PRN PRN Reason: NAUSEA/VOMITING Sodium Chloride (0.9% Saline Lock 10 Ml Syringe) 10 - 40 ml IV UD PRN PRN Reason: SALINE FLUSH Last Admin: 08/29/20 11:43 Dose: 10 ml Documented by: Medical Necessity - Tobacco Use Smoking Status: Current every day smoker Assessment/Plan This is a 59 years old male patient presented to the emergency room because of shortness of breath, body aches, malaise, tested negative for COVID-19 antigen as well as COVID-19 PCR although high suspicion of COVID-19 is there, start of the treatment and he developed strokelike symptoms last night. #1 acute COVID-19: High suspicion although COVID-19 antigen and COVID-19 PCR was negative. He is on IV Decadron and remdesivir as well as subcu Lovenox twice daily. CTA chest showed no PE or dissection. Today, patient reported improvement, he is off oxygen but still having symptoms of fatigue and weakness. Infectious disease on the case. Plan to continue same treatment. #2 strokelike symptoms: Last night, patient developed minimal left facial droop, unknown if it is acute or chronic. Patient thinks that he has no new symptoms. CT scan brain showed no acute findings. CTA of the head and neck was unremarkable. Patient is on aspirin and statins. Neuro examination is unremarkable. MRI brain done today, awaiting the results. #3 hypertension: Blood pressure stable, continue Norvasc. #4 history of CHERY: LFT was unremarkable, stable. #5 leukocytosis: On chronic prednisone, held at this time. #5 chronic back pain: He is on Dilaudid tablets, continued. #6 hyperlipidemia: Continue statins. #7 hemochromatosis: Stable, no acute issues. #8 DVT prophylaxis: Subcu Lovenox. This note was generated with [employer] dictation software. It may contain incorrect words, spelling, and punctuation that were not noted in checking the note before signing. Inpatient E&M: 38990 Subs Hosp L2
[2020-08-30] MEDS: dexAMETHasone 4 MG/ML Vial 6 MG IV (12:37)
[2020-08-30] MEDS: guaiFENesin 1,200 MG Tablet 1200 MG PO ×2 (12:38→21:19)
[2020-08-30] MEDS: Enoxaparin 30 MG/0.3 ML Syringe SC ×2 (12:38→21:19)
--- NOTE | 2020-08-30 12:46 | CASEMGMT ---
RN CM Note: Per speech therapy, pt needs supervision with meals. If patient stays until Wednesday- can have Modified Barium Swallow on Wednesday @ [facility], If patient is discharged over the weekend, script for Outpt ST and MBS is on front of chart for physician to sign and then fax to [facility]. - Dr. Pereira updated.
[2020-08-30 12:55] LABS: Bedside Glucose 127 mg/dL (70-110)
[2020-08-30] MEDS: amLODIPine 10 MG Tablet PO (14:14)
--- NOTE | 2020-08-30 15:46 | PCM.HP.ID ---
Problem List (1) COVID-19 Status: Acute Reason for Consult: covid Consulted by: Dr. Dang History of Present Illness: The patient is a 59 year old M presented with sx starting 08/24 or 08/25, c/o chills, no fever, had aches/BENAVIDES/change in taste and smell/diarrhea/cough/SOB. and daughter and grandkids at home are healthy, in quarantine. CT neg for PE. Started on dex and remdesivir, feeling much better today. Full ROS performed and neg except as noted above. - Medical History Past Medical History (Chronic Problems): Chronic Problems (Last Updated 08/30/20 @ 11:[address] 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 [facility] received 8 chemo tx of BCG; cancer returned 3 years later and received another chemo tx of BCG Cirrhosis (Chronic) History of pulmonary embolus (PE) (Chronic) PORT PLACEMENT (Chronic) DR. STEEL x2 (first one became infected) Hereditary hemochromatosis (Chronic) Hypercoagulable state (Chronic) Allergies/Adverse Reactions: Allergies lorazepam [From Ativan] Allergy (Severe, Verified 08/28/20 15:13) Other cephalexin [From Keflex] Adverse Reaction (Severe, Verified 08/28/20 15:13) Nausea/Vom/Diarrhea fluoxetine HCl [From Prozac] Adverse Reaction (Severe, Verified 08/28/20 15:13) Vomiting morphine Adverse Reaction (Severe, Verified 08/28/20 15:13) Rash oxycodone Adverse Reaction (Severe, Verified 08/28/20 15:13) Hives pregabalin [From Lyrica] Adverse Reaction (Severe, Verified 08/28/20 15:13) hypotension BLOOD PRESSURE DROPS duloxetine [From Cymbalta] Adverse Reaction (Verified 08/30/20 00:13) NEEDS FOLLOW-UP Home Medications: Ambulatory Orders Medication Instructions Recorded ziconotide 25 mcg/mL intrathecal 0.05 mcg/hr INTRATH UD 01/17/19 solution Amlodipine Besylate [Norvasc] 10 mg PO DAILY 01/16/20 Lisinopril [Zestril] 10 mg PO DAILY 01/16/20 HYDROmorphone tablet [Dilaudid] 2 mg PO Q12H 08/28/20 albuterol sulfate 90 mcg/actuation 1 - 2 puff INHALATION Q6H PRN #8.5 08/28/20 aerosol inhaler g azithromycin 250 mg tablet See Rx Instructions PO .COMPLEX #6 08/28/20 tab prednisone 10 mg tablet See Rx Instructions PO QDAY #30 tab 08/28/20 - Social History Tobacco Use: cigarettes Vital Signs Temp Pulse Resp BP Pulse Ox 97.7 F L 64 18 121/71 H 98 08/30/20 12:31 08/30/20 15:00 08/30/20 12:31 08/30/20 12:31 08/30/20 12:31 Oxygen Flow Rate (L/min) 2 Oxygen Delivery Method Room Air Weight: 108.1 kg Body Mass Index (BMI) 32.3 Finger Stick Blood Glucose 96 Microbiology Past 72 Hours 08/29/20 02:23 Respiratory Panel (PCR) - Final Mucosa - Nasopharyngeal 08/29/20 00:00 Influenza Types A,B Direct FA (CARISA) - Final Mucosa - Nasopharyngeal 08/28/20 17:47 SARS-CoV-2 Antigen (Rapid) - Final Mucosa - Nasopharyngeal Laboratory Tests Past 24 Hrs 08/30/20 08/30/20 06:30 06:30 WBC 7.6 RBC 4.90 Hgb 15.4 Hct 45.4 MCV 92.7 MCH 31.4 MCHC 33.9 RDW Std Deviation 45.3 H RDW Coeff of Marlene 13.3 Plt Count 184 MPV 10.0 Sodium 138 Potassium 4.0 Chloride 105 Carbon Dioxide 27.0 Anion Gap 6 BUN 26 H Creatinine 0.89 Estim Creat Clear Calc 100.51 Est GFR (MDRD) Af Amer 113 Est GFR (MDRD) Non-Af 93 BUN/Creatinine Ratio 29.2 H Glucose 111 H Calcium 8.4 L Total Bilirubin 0.70 AST 15 ALT 38 Alkaline Phosphatase 98 Total Protein 6.5 Albumin 3.6 Globulin 2.9 Albumin/Globulin Ratio 1.2 Triglycerides 192 Cholesterol 156 LDL Cholesterol 77 VLDL Cholesterol 38 HDL Cholesterol 41 - Other Studies Radiology: [] reviewed Other Studies: [] Route of nutrition/ use of supplements: [] Nutritional Intake: [] IV Site: [] Ludwig Catheter: [] - Physical Exam General: Alert, Oriented x3, Cooperative, No apparent distress HEENT: Atraumatic, PERRLA, EOMI Neck: Supple, No Nodes Lungs: Diminished Cardiovascular: Regular rate, Regular Rhythm Abdomen: Soft, Non Tender, Non-Distended Extremities: No edema Skin: No rashes IV Site: Peripheral, without redness Musculoskeletal: No Tenderness to Palpation of Joints or Extremities Neurological: Cranial nerves II-XII grossly intact - Assessment/Plan Antibiotics: [] Assessment/Plan: [] suspected covid - neg pcr and Ag here. Based on symptoms and lymphopenia, agree with remdesivir and dex. CT neg for PE. D-dimer was 1.06. Plan on discharge on 10 days total dex and 2 weeks either eliquis 2.5mg bid or xarelto 10mg daily. Will follow, thank you
[2020-08-30] MEDS: Atorvastatin Calcium 80 MG Tablet PO (21:19)
[2020-08-30] MEDS: HYDROmorphone 2 MG TABLET PO (21:19)
[2020-08-31 02:34] VITALS: BP 118/77; PULSE 57; RESP 18; TEMP 36.5; O2SAT 95
[2020-08-31 03:29] VITALS: PULSE 51
[2020-08-31] MEDS: amLODIPine 10 MG Tablet PO (08:23)
[2020-08-31] MEDS: dexAMETHasone 4 MG Tablet 6 MG PO (08:23)
[2020-08-31] MEDS: guaiFENesin 1,200 MG Tablet 1200 MG PO (08:23)
[2020-08-31] MEDS: Enoxaparin 30 MG/0.3 ML Syringe SC (08:24)
[2020-08-31 08:30] VITALS: BP 123/89; PULSE 53; RESP 16; TEMP 36.4; O2SAT 98
[2020-08-31] MEDS: HYDROmorphone 2 MG TABLET PO (08:44)
[2020-08-31 09:03] VITALS: O2SAT 95
--- NOTE | 2020-08-31 09:18 | PCM.DC ---
- Discharge Diagnoses Current Active Problems: Current Active and Chronic Problems (Last Updated 08/30/20 @ 11:[address] 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 [facility] received 8 chemo tx of BCG; cancer returned 3 years later and received another chemo tx of BCG Cirrhosis (Chronic) History of pulmonary embolus (PE) (Chronic) PORT PLACEMENT (Chronic) DR. STEEL x2 (first one became infected) Hereditary hemochromatosis (Chronic) Hypercoagulable state (Chronic) You will use the following diet at home:: Cardiac Your food should be the consistency of: Regular Discharge Activity: Return to Normal Activity Weight Bearing Status: Weight bearing as tolerated Call your doctor if you observe: Fever of 101 or Higher, Shortness of breath, Dizziness, Fainting spells, Chest pain, Increased palpitations (irregular heartbeat), Uncontrolled pain Instructions: Coronavirus Disease 2019 (COVID-19): Caring for Yourself or Others, Preventing the Spread of Infection Understanding Isolation Procedures Additional Instructions: #1 continue COVID-19 isolation precautions for 12 days more, use facemask at all times, wash your hands frequently, use a separate room and a bathroom at home. #2 speech therapy states that he has been having difficulties swallowing and they recommended imaging study called barium swallow which will be done as outpatient. #2 speech therapy as outpatient. Allergies/Adverse Reactions: Allergies lorazepam [From Ativan] Allergy (Severe, Verified 08/28/20 15:13) Other cephalexin [From Keflex] Adverse Reaction (Severe, Verified 08/28/20 15:13) Nausea/Vom/Diarrhea fluoxetine HCl [From Prozac] Adverse Reaction (Severe, Verified 08/28/20 15:13) Vomiting morphine Adverse Reaction (Severe, Verified 08/28/20 15:13) Rash oxycodone Adverse Reaction (Severe, Verified 08/28/20 15:13) Hives pregabalin [From Lyrica] Adverse Reaction (Severe, Verified 08/28/20 15:13) hypotension BLOOD PRESSURE DROPS duloxetine [From Cymbalta] Adverse Reaction (Verified 08/30/20 00:13) NEEDS FOLLOW-UP Medications to take at Discharge ziconotide 25 mcg/mL intrathecal solution 0.05 mcg/hr INTRATH UD 01/17/19 Amlodipine Besylate [Norvasc] 10 mg PO DAILY 01/16/20 Lisinopril [Zestril] 10 mg PO DAILY 01/16/20 HYDROmorphone tablet [Dilaudid] 2 mg PO Q12H 08/28/20 albuterol sulfate 90 mcg/actuation aerosol inhaler 1 - 2 puff INHALATION Q6H PRN #8.5 g 08/28/20 Apixaban [Eliquis] 2.5 mg PO BID #28 tab 08/31/20 Dexamethasone [Decadron] 6 mg PO DAILY 7 Days #7 tab 08/31/20 The following prescriptions were given: Dexamethasone [Decadron] 6 mg PO DAILY 7 Days #7 tab Transmission Status: Pending to [id number] Apixaban [Eliquis] 2.5 mg PO BID #28 tab Transmission Status: Pending to [id number] Orders to be completed after discharge: Swallowing Function w/Video [RAD] Facility: [facility], Location: [facility] Speech Therapy Evaluation Location: None Selected Primary Care Physician: Aleksandr Duarte DO [Primary Care Provider] - Please follow up with your Primary Care Physician in: 1-2 week. Test Results: Test results from this visit will be discussed in further detail at your follow-up appointment, if applicable.
[2020-08-31] MEDS: 0.9% Saline Lock 10 ML Syringe IV (10:06)
--- NOTE | 2020-08-31 12:06 | PCM.DC.SUM ---
Discharge Date and Diagnosis - Problem List Patient Problems: Active and Suspected Problems (Last Updated 08/30/20 @ 11:[address] Ger Dang MD) COVID-19 (Acute) Date of Admission: 08/28/20 Date of Discharge: 08/31/20 - Primary Discharge Diagnosis Acute Problems: Active Problems (Last Updated 08/30/20 @ 11:[address] Ger Dang MD) #1 high suspicion for COVID-19 infection. #2 questionable left facial droop, acute stroke ruled out. - Secondary Discharge Diagnosis Chronic Problems: Chronic Problems (Last Updated 08/30/20 @ 11:[address] 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 Gerardo [facility] received 8 chemo tx of BCG; cancer returned 3 years later and received another chemo tx of BCG Cirrhosis (Chronic) History of pulmonary embolus (PE) (Chronic) PORT PLACEMENT (Chronic) DR. STEEL x2 (first one became infected) Hereditary hemochromatosis (Chronic) Hypercoagulable state (Chronic) Hospital Course and Treatment Imaging Results: Clinical Impression(s) from Imaging Studies Chest CTA 08/28/20 16:17 IMPRESSION: CTA chest examination, without a demonstrated pulmonary embolism or arterial dissection. Stable right middle lobe nodule. Electronically Signed: Camron Melendez MD at 19:01 EST , Service support , Chest X-Ray 08/28/20 16:25 IMPRESSION: No acute cardiopulmonary disease. Electronically Signed: Camron Melendez MD at 16:59 EST , Service support , Brain CT 08/29/20 20:10 IMPRESSION: Chronic involutional changes of the brain. N.B. : The above information has been verbally conveyed by Camron Melendez MD to Dr. Luis E Eagle MD, on 08/29/2020 20:36:39 (ET). Electronically Signed: Camron Melendez MD at 20:39 EST , Service support , ADDENDUM: 08/29/202045 IMPRESSION: Chronic involutional changes of the brain. N.B. : The above information has been verbally conveyed by Camron Melendez MD to Dr. Luis E Eagle MD, on 08/29/2020 20:36:39 (ET). Electronically Signed: Camron Melendez MD at 20:39 EST , Service support , ADDENDUM: 08/30/20 0825 Head/Neck CTA 08/29/20 20:12 IMPRESSION: Normal CTA Head and neck with contrast. No aneurysm or large vessel occlusion. N.B. : The above information has been verbally conveyed by Camron Melendez MD to LUIS E EAGLE on 08/29/2020 20:39:09 (ET). Electronically Signed: Camron Melendez MD at 20:43 EST , Service support , ADDENDUM: 08/29/202049 IMPRESSION: Normal CTA Head and neck with contrast. No aneurysm or large vessel occlusion. N.B. : The above information has been verbally conveyed by Camron Melendez MD to LUIS E EAGLE on 08/29/2020 20:39:09 (ET). Electronically Signed: Camron Melendez MD at 20:43 EST , Service support , Brain MRI 08/30/20 10:30 IMPRESSION: Involutional changes of the brain, as described above. No acute intracranial abnormality. Electronically Signed: Camron Melendez MD at 12:00 EST , Service support , Dr. Ornelas, infectious disease. [facility] teleneurology. Operations: None Procedures: 2-D Echocardiogram, EKG Summary of Care Provided: Patient seen and examined on the day of discharge and appeared to be stable to be discharged home. His breathing continued to improve and he feels better. He remains on room air. Acute stroke ruled out, MRI was negative. His vital signs were stable. The patient is a 59 year old M presented to the emergency room with cough shortness of breath, body aches, malaise and he tested negative for COVID-19 antigen as well as COVID-19 PCR. Chest x-ray showed no acute findings. CTA chest done and showed no PE or dissection. There was high suspicion of COVID-19 as his symptoms are typically. Patient initially required oxygen of up to 3 L. Infectious disease consulted and patient was started on IV Decadron, IV remdesivir and subcu Lovenox twice daily. His symptoms improved quickly and patient was able to come off oxygen. Respiratory status remained stable. Patient developed strokelike symptoms mainly questionable left facial droop. Stroke alert was called and patient had CT scan brain that showed no acute findings. CTA of the head and neck showed was unremarkable. [facility] teleneurology recommended MRI brain which was done and showed no acute infarct. 2D echocardiogram revealed normal LV size and function, ejection fraction was 65%, bubble contrast study was negative for iwyjo-gu-vagt shunt. Blood culture showed no growth in 48 hours. Respiratory panel for viruses were negative. Patient did very well. Acute stroke ruled out. He was evaluated by speech therapy and recommended swallowing study as outpatient as well as speech therapy as outpatient which was ordered. Patient discharged home in a stable medical condition, no oxygen requirement upon discharge, discharged on Decadron 6 mg p.o. daily to complete total of 10 days of treatment, discharged on Eliquis 2.5 mg p.o. twice daily for 2 weeks, orders was given for speech therapy as outpatient as well as barium swallow, recommended follow-up with PCP in 1 to 2 weeks. Patient Problems: Active and Suspected Problems (Last Updated 08/30/20 @ 11:[address] Ger Dang MD) COVID-19 (Acute) - Physical Exam Vitals/I&O's: Vital Signs Temp Pulse Resp BP Pulse Ox 97.5 F L 53 L 16 123/89 H 95 08/31/20 08:30 08/31/20 08:30 08/31/20 08:30 08/31/20 08:30 08/31/20 09:03 Oxygen Flow Rate (L/min) 2 Oxygen Delivery Method Room Air Weight: 238 lb 5.115 oz Body Mass Index (BMI) 32.3 Finger Stick Blood Glucose 96 Intake and Output for Last 24 Hours 08/29/20 08/30/20 08/31/20 23:59 23:59 23:59 Intake Total 469.25 / 469.25 250 / 250 0 / 0 Balance 469.25 / 469.25 250 / 250 0 / 0 General: Alert, Oriented x3, Cooperative, No apparent distress HEENT: Atraumatic, PERRLA, EOMI, Normocephalic Oral: Moist Mucosa, No Gingival or Mucosal Lesions/ Ulcerations Neck: Supple, No JVD, Negative Carotid Bruits, Trachea Midline, Thyroid Normal Size and Texture Lungs: Clear to auscultation, No rhonchi, No wheeze, No rales, Diminished Cardiovascular: Regular rate, Regular Rhythm, Normal S1, Normal S2, PMI Normal Abdomen: Bowel Sounds Present, Soft, Non Tender, Non-Distended, No Hepato-splenomegaly, Obese Extremities: No clubbing, No cyanosis, No edema Skin: No rashes, No breakdown Lymphatic: No Cervical, Supraclavicular, or Inguinal Adenopathy Neurological: Cranial nerves II-XII grossly intact, Neuro grossly intact Psych/Mental Status: Normal Affect, Appropriate Microbiology Past 72 Hours 08/28/20 19:22 Blood Culture (Wb) - Other Blood Culture - Preliminary No growth in 48 hours. 08/28/20 17:27 Blood Culture (Wb) - Other Blood Culture - Preliminary No growth in 48 hours. 08/29/20 02:23 Mucosa - Nasopharyngeal Respiratory Panel (PCR) - Final 08/29/20 00:00 Mucosa - Nasopharyngeal Influenza Types A,B Direct FA (CARISA) - Final 08/28/20 17:47 Mucosa - Nasopharyngeal SARS-CoV-2 Antigen (Rapid) - Final Laboratory Results 08/30/20 12:35: POC Glucose 127 H Discharge Activity: Return to Normal Activity Weight Bearing Status: Weight bearing as tolerated Call your doctor if you observe: Fever of 101 or Higher, Shortness of breath, Dizziness, Fainting spells, Chest pain, Increased palpitations (irregular heartbeat), Uncontrolled pain Home Medications: Medications to take at Discharge ziconotide 25 mcg/mL intrathecal solution 0.05 mcg/hr INTRATH UD 01/17/19 Amlodipine Besylate [Norvasc] 10 mg PO DAILY 01/16/20 Lisinopril [Zestril] 10 mg PO DAILY 01/16/20 HYDROmorphone tablet [Dilaudid] 2 mg PO Q12H 08/28/20 albuterol sulfate 90 mcg/actuation aerosol inhaler 1 - 2 puff INHALATION Q6H PRN #8.5 g 08/28/20 Apixaban [Eliquis] 2.5 mg PO BID #28 tab 08/31/20 Dexamethasone [Decadron] 6 mg PO DAILY 7 Days #7 tab 08/31/20 Following Prescriptions Were Given to Patient: Dexamethasone [Decadron] 6 mg PO DAILY 7 Days #7 tab Transmission Status: Received by [facility]/pharmacy #[id number] Apixaban [Eliquis] 2.5 mg PO BID #28 tab Transmission Status: Received by [facility]/pharmacy #[id number] Other Amb Orders: Swallowing Function w/Video [RAD] Facility: [facility], Location: [facility] Speech Therapy Evaluation Location: None Selected Primary Care Physician: Aleksandr Duarte DO [Primary Care Provider] - Please follow up with your Primary Care Physician in: 1-2 week. Patient Instructions: Coronavirus Disease 2019 (COVID-19): Caring for Yourself or Others, Preventing the Spread of Infection Understanding Isolation Procedures Disposition: Home Minutes spent on discharge:: 32 Patient Condition:: Stable Medical Necessity - Tobacco Use Smoking Status: Current every day smoker Meaningful Use Info Meaningful Use Diagnoses (Choose all that apply): None applicable Inpatient E&M: 86454 Disch Hosp
== END 2020-08-31 10:25 | disposition home or self-care (01) | DRG 178 ==
LOC: ED 23:44 → MS2 08-29 00:46
PROVIDERS: Admitting Provider Hospitalist; Emergency Provider Student in an Organized Health Care Education/Training Program; PCP Family Medicine; Referring Provider Hospitalist; Visit Provider Hospitalist
DX: U07.1 COVID-19 (principal); D68.59 Other primary thrombophilia; I10 Essential (primary) hypertension; E78.5 Hyperlipidemia, unspecified; E11.9 Type 2 diabetes mellitus without complications; Z86.711 Personal history of pulmonary embolism; K75.81 Nonalcoholic steatohepatitis (NASH); E83.110 Hereditary hemochromatosis; F17.210 Nicotine dependence, cigarettes, uncomplicated; R09.02 Hypoxemia; G89.29 Other chronic pain; G52.1 Disorders of glossopharyngeal nerve; M32.9 Systemic lupus erythematosus, unspecified; D72.810 Lymphocytopenia; R29.810 Facial weakness; J44.9 Chronic obstructive pulmonary disease, unspecified; R27.8 Other lack of coordination
CPT/HCPCS: 36591; 70450; 70496; 70498; 70551; 71045; 71275; 80053; 80061; 82728; 82962; 83605; 84075; 84145; 84478; 84484; 85025; 85027; 85379; 87040; 87426; 87633; 87635; 87804; 92507; 92610; 93005; 93306; 99285; J7040; J7050; Q9957; Q9967; A4216; J2405; U0002

== ENCOUNTER 2020-09-02 23:34 | Emergency (ER) | payer OTHER, MEDICARE, SELFPAY ==
[2020-08-29 01:26] VITALS: BMI 32.3
[2020-09-02 23:34] VITALS: BP 135/82; PULSE 84; RESP 24; TEMP 37.3; O2SAT 92; BMI 33.5
[2020-09-02 23:38] VITALS: BP 135/82; PULSE 84; RESP 24; TEMP 37.3; O2SAT 92; O2SAT 95
--- NOTE | 2020-09-02 23:57 | EKG12_ITS ---
Test Reason : CHEST PAIN Blood Pressure : / mmHG Vent. Rate : 074 BPM Atrial Rate : 074 BPM P-R Int : 166 ms QRS Dur : 092 ms QT Int : 392 ms P-R-T Axes : 063 026 040 degrees QTc Int : 435 ms Normal sinus rhythm with sinus arrhythmia Normal ECG Confirmed by OMAR BENTLEY, SLIM ([id number]), material expeditor ALEXANDRIA MOLINA ([id number]) on 09/12/2020 12:33:10 PM Referred By: Luis E Aguillon Confirmed By:AMALIA NELSON MD
--- NOTE | 2020-09-03 | RAD_ITS ---
HISTORY: INCREASED SOB, CP, COUGH, +COVID 08/28, RECENTLY DC ON 08/31 EXAM: XR Chest 1 View: COMPARISON: August 28, 2020 FINDINGS: # of images incl. paperwork: 1 Extensive anterior and posterior cervical spine fixation hardware is in place. Right chest wall single lumen port catheter tip terminates from the right IJ access within the region of the right atrial SVC junction, and is unchanged in position. Lungs are clear. Heart is not enlarged. Thoracic spondylosis remains Pulmonary vascularity is distinct. No effusions. RAD/Chest 1 View (Portable) IMPRESSION: No acute cardiopulmonary disease perceived. at 0020 Reported and signed by: Binu Avery MD Electronically Signed: Binu Avery MD at 0:19 EST Tel , Service support ,
--- NOTE | 2020-09-03 00:07 | ED.DCSUM_ITS ---
History of Present Illness Chief Complaint: Shortness of Breath Informant: Patient Onset: Days Context: Gradual Onset Timing: Continuous Current Severity: Moderate Maximum Severity: Moderate Narrative: Patient is a 59-year-old male with medical history significant for recent diagnosis of presents to the emergency department with increasing shortness of breath. Patient was hospitalized and discharged 2 days ago. He states since being home, he has had worsening shortness of breath. He states that he is been monitoring his pulse ox and it has been in the mid 80s even at rest. He states that he is had chest pain and difficulty breathing. He does have history of smoking, but denies any underlying history of lung disease. Patient states he is otherwise been in his normal state of health. He has been on Decadron and compliance. He also got antivirals while in the hospital. Patient does have history of prior DVT and is on Eliquis. Prior similar symptoms: Yes Recent Illness/Hospitalization: Yes Past Medical History - Allergies and Home Meds Allergies/Adverse Reactions: Allergies lorazepam [From Ativan] Allergy (Severe, Verified 09/02/20 23:38) Other cephalexin [From Keflex] Adverse Reaction (Severe, Verified 09/02/20 23:38) Nausea/Vom/Diarrhea fluoxetine HCl [From Prozac] Adverse Reaction (Severe, Verified 09/02/20 23:38) Vomiting morphine Adverse Reaction (Severe, Verified 09/02/20 23:38) Rash oxycodone Adverse Reaction (Severe, Verified 09/02/20 23:38) Hives pregabalin [From Lyrica] Adverse Reaction (Severe, Verified 09/02/20 23:38) hypotension BLOOD PRESSURE DROPS duloxetine [From Cymbalta] Adverse Reaction (Verified 09/02/20 23:38) NEEDS FOLLOW-UP Primary Care Physician: Aleksandr Duarte DO [Primary Care Provider] - Prior records reviewed: Yes Past Medical History: - - Covid Surgical History: appendectomy, cholecystectomy, herniorrhaphy, rotator cuff repair, - - Bladder surgery, neck surgery Smoking Status: Former smoker - Family History Paternal Family History: Family History (Last Reviewed 08/29/20 @ 05:[address] Luis E Aguillon MD) Father Prostate cancer Heart disease Grandfather Diabetes Grandmother Diabetes Mother Hypertension Heart disease Sister Hypertension Family History: Reports: No pertinent history Maternal Family History: Family History (Last Reviewed 08/29/20 @ 05:[address] Luis E Aguillon MD) Father Prostate cancer Heart disease Grandfather Diabetes Grandmother Diabetes Mother Hypertension Heart disease Sister Hypertension Family History: Reports: No pertinent history Review of Systems General: Reports: Chills, Fever. Denies: Sweats Eyes: Denies: Visual changes - bilaterally, Diplopia ENT: Denies: Rhinorrhea, Sore throat Cardiovascular: Denies: Chest pain, Palpitations Respiratory: Reports: Dyspnea, Cough. Denies: Dyspnea on exertion Gastrointestinal: Denies: Abdominal pain, Nausea, Vomiting, Diarrhea, Melena, Hematochezia Genitourinary: Denies: Dysuria, Hematuria, Frequency Musculoskeletal: Denies: Back pain, Extremity Pain Skin: Denies: Rash, Wounds Neurological: Denies: Headache, Weakness, Numbness Physical Exam Vital Signs/Narrative: Vital Signs Temp Pulse Resp BP Pulse Ox 09/02/20 23:38 99.2 F H 84 24 H 135/82 H 92 09/02/20 23:34 99.2 F H 84 24 H 135/82 H 92 Inital Vital Signs reviewed: Yes General: Well nourished, Well developed, No Acute Distress Head: Normocephalic, Atraumatic Eyes: Perrl, EOMI ENT: Moist mucous membranes, No rhinorrhea Neck: Supple, Nontender Cardiovascular: Regular rate, Regular rhythm, No murmurs Respiratory: No distress, Chest nontender, Diminished Abdomen: Soft, Nontender, Nondistended, Normal bowel sounds Back: Nontender, Normal Inspection Extremities: Nontender, No edema Skin: Normal color, No rash Neurological: Alert, Oriented x3, Cranial nerves II-XII grossly intact, Normal Strength, Normal Sensation Psychological: Normal affect, Normal Mood Diagnostic/Tx/Re-eval Clinical Impression(s) from Imaging Studies Chest X-Ray 09/03/20 00:00 IMPRESSION: No acute cardiopulmonary disease perceived. at 0020 Reported and signed by: Binu Avery MD Electronically Signed: Binu Avery MD at 0:19 EST Tel , Service support , Abnormal Lab Results 09/03/20 09/03/20 09/03/20 00:17 00:17 00:17 WBC 9.2 RBC 5.11 Hgb 16.4 Hct 47.0 MCV 92.0 MCH 32.1 H MCHC 34.9 RDW Std Deviation 44.0 H RDW Coeff of Marlene 13.0 Plt Count 229 MPV 10.2 Immature Gran % (Auto) 0.800 Neut % (Auto) 78.4 H Lymph % (Auto) 9.9 L Blount % (Auto) 10.7 H Eos % (Auto) 0.0 Baso % (Auto) 0.2 Absolute Neuts (auto) 7.2 Absolute Lymphs (auto) 0.91 Nucleated RBC % 0 Sodium 137 Potassium 4.0 Chloride 105 Carbon Dioxide 26.0 Anion Gap 6 BUN 27 H Creatinine 1.16 Estim Creat Clear Calc 77.12 Est GFR (MDRD) Af Amer 83 Est GFR (MDRD) Non-Af 69 BUN/Creatinine Ratio 23.3 H Glucose 238 H Lactic Acid 1.8 Calcium 8.2 L Total Bilirubin 0.50 AST 12 L ALT 49 Alkaline Phosphatase 162 H Troponin I < 0.015 Total Protein 6.9 Albumin 3.7 Globulin 3.2 Albumin/Globulin Ratio 1.2 - Rhythm Strip Rhythm Strip: Sinus Rhythm Rate: 80 Ectopy: None - EKG Initial EKG Interpretation: Sinus Rhythm, No Acute Injury Pattern Prior: Unchanged - Medical Decision Making Patient presents with shortness of breath. He does have recent diagnosis of Covid. He was hospitalized and underwent treatment. He states sometimes, just feels like he cannot catch his breath. The patient has not been hypoxic. Metabolic work-up was pursued. EKG was sinus rhythm without acute ischemia. Chest x-ray is basically unchanged. There is no acute infiltrative process. The patient is anticoagulated. I do not feel that PE evaluation will be necessary especially since he is not tachycardic or hypoxic. Metabolic work-up was unremarkable. Cardiac enzymes were negative. Patient was feeling improved. He ambulated with a pulse ox. He never went lower than 94%. At this point, I do feel that he safe for outpatient follow-up. He will be discharged home. Impression 1. COVID-19 2. Dyspnea ED Disposition - Plan for ED Patient: Instructions: Coronavirus Disease 2019 (COVID-19): Overview Referrals: Aleksandr Duarte DO [Primary Care Provider] -
[2020-09-03 00:24] LABS: Absolute Lymphocyte Count 0.91 X10^3/uL (0.83-4.51); Absolute Neutrophil Count 7.2 X10^3/uL (2.0-7.7); Basophil# 0.02 X10^3/uL; Basophil% 0.2 % (0-1); Hemoglobin 16.4 g/dL (13.0-16.5); Lymphocyte # 0.91 X10^3/ul (4.0); Lymphocyte % 9.9 % (19-41); Mean Corp Hgb Conc 34.9 g/dL (32-36); Mean Corpuscular Hgb 32.1 pg (27.0-32.0); Mean Platelet Vol. 10.2 fl (6.2-12.0); Monocyte# 0.98 X10^3/uL; Monocyte% 10.7 % (0-10); NRBC Flagged by Analyzer 0 % (0-5); Neutrophil # 7.22 X10^3/uL (2.7-7.7); Neutrophil % 78.4 % (47-70); Platelet Count 229 K/mm3 (150-450); Red Blood Count 5.11 M/mm3 (4.6-6.2); White Blood Count 9.2 K/mm3 (4.4-11.0)
[2020-09-03 00:34] VITALS: BP 149/105; PULSE 68; RESP 22; O2SAT 95
[2020-09-03] MEDS: 0.9% Normal Saline 1,000 ML 125 ML IV (00:34)
[2020-09-03] MEDS: Acetaminophen 500 MG Tablet 1000 MG PO (00:34)
[2020-09-03 00:38] VITALS: BP 149/105; PULSE 68; RESP 22; TEMP 37.3; O2SAT 95
[2020-09-03 00:52] LABS: ALB/GLOB Ratio 1.2 RATIO (0.9-2.4); AST(SGOT) 12 U/L (15-37); Alanine Aminotransfer ALT/SGPT 49 U/L (16-61); Albumin, Serum 3.7 g/dL (3.2-5.0); Alkaline Phosphatase 162 U/L (45-117); Anion Gap 6 (5-15); BUN 27 mg/dL (7-18); BUN/Creat Ratio 23.3 RATIO (10-20); Calcium,Total 8.2 mg/dL (8.5-10.1); Chloride 105 mmol/L (98-107); Creatinine, Serum 1.16 mg/dL (0.70-1.30); EST Glomerular Filtration Rate 69 mL/min (>60); Est Glom Filt Rate - Afr Amer 83 mL/min (>60); Estimated Creatinine Clearance 77.12 ml/min; Globulin 3.2 g/dL (2.2-4.2); Glucose 238 mg/dL (74-106); Protein, Total 6.9 g/dL (6.4-8.2); Sodium Level 137 mmol/L (136-145)
[2020-09-03 01:00] VITALS: BP 140/111; PULSE 60; RESP 15; TEMP 37.6; O2SAT 94
[2020-09-03 01:07] LABS: Lactic Acid 1.8 mmol/L (0.4-1.9)
[2020-09-03 01:59] VITALS: O2SAT 95
[2020-09-03 02:25] VITALS: BP 140/111; PULSE 60; RESP 15; O2SAT 96
[2020-09-03] MEDS: 0.9% Saline Lock 10 ML Syringe IV (02:25)
== END 2020-09-03 02:27 | disposition home or self-care (01) ==
LOC: ED 09-03 00:56
PROVIDERS: Emergency Provider Emergency Medicine; PCP Family Medicine
DX: U07.1 COVID-19 (principal); R06.00 Dyspnea, unspecified; Z87.891 Personal history of nicotine dependence; Z86.718 Personal history of other venous thrombosis and embolism; Z79.02 Long term (current) use of antithrombotics/antiplatelets
CPT/HCPCS: 71045; 80053; 83605; 84484; 85025; 87040; 93005; 96360; 96361; 99285; J7030; A4216

== ENCOUNTER → 2020-11-04 12:28 | Outpatient (CLI) | payer OTHER, MEDICARE, SELFPAY ==
--- NOTE | 2020-11-04 | CYSPIN_PTH ---
PATIENT: YONATHAN HERNANDEZ Jr. LOC: [facility] U#:[id number] AGE/SX: 64/M ROOM: RE11/04/[address]: ELIAN Heredia : 1960 BED: DIS: SPEC #: [id number] RECD: 11/05/20 09:57 STATUS: SEAN JAK #: [id number] SUZANNE: 11/04/20 00:[address]: Wendy Sanderson NP DEPT: CYTOLOGY RECD BY: Donya Bennett ENTERED: 11/05/20 09:57 SP TYPE: CYSPIN FL OTHR DR: Dr. Aleksandr Duarte, DO Tissues: Urine Procedures: Pap Stain (control) Special Stain Group II Cytospin Fluid HEADER OPERATION: Not noted PRE-OP DIAGNOSIS: Gross hematuria TISSUE SUBMITTED: Urine for cytology DIAGNOSIS CYTOLOGY Urine for cytology (cytospin): A few atypical urothelial cells. See comment. RAFAELA:carlotta 11/06/2020 COMMENT Clinical correlation and appropriate follow up are necessary. Case has been reviewed in consultation with Dr. Cabrera who concurs with the above diagnosis. IDC:AM CYTOLOGY STUDY Slides are reviewed. CYTOLOGY GROSS Received is 80 ml of gold clear fluid labeled with the patient's name and and designated per the requisition as urine. Submitted for cytology preparation. / carlotta 11/05/2020 TC:5 CPT: 87265
[2020-11-04 13:21] LABS: Cytology, Body Fluid / CSF SEE PATHOLOGY REPORT
== END ==
PROVIDERS: PCP Family Medicine; Referring Provider Nurse Practitioner Adult Health; Visit Provider Nurse Practitioner Adult Health
DX: R31.0 Gross hematuria (principal)
CPT/HCPCS: 88108; 88313

== ENCOUNTER → 2020-11-07 09:28 | Outpatient (CLI) | payer OTHER, MEDICARE, SELFPAY ==
[2020-05-14 14:37] VITALS: BMI 32.5
--- NOTE | 2020-11-07 09:30 | US_ITS ---
STUDY: ABDOMINAL ULTRASOUND - RIGHT UPPER QUADRANT REASON FOR VISIT: Male, 59 years old HEMOCHROMATOSIS TECHNIQUE: Ultrasound evaluation of the right upper quadrant was performed with real-time and static kruger-scale imaging. TECHNICAL QUALITY: Limited. Examination limited by bowel gas. COMPARISON: Comparison is made with prior study dated 10/26/2019. FINDINGS: Liver: The liver is enlarged and measures 20 cm. There is increased echogenicity consistent with fatty infiltration. Focal fatty sparing in the region of the gallbladder fossa. The bile ducts are within normal limits. There is hepatic color flow. The direction of portal flow is hepatopetal. There is no demonstrated mass lesion. Gallbladder: The patient is status post cholecystectomy. Common Bile Duct (C.B.D.): The common bile duct measures 5.2 mm. Pancreas: There is nonvisualization of the pancreas due to overlying bowel gas. Right Kidney: Normal size of the right kidney. The right kidney measures 12 cm x 7.1 cm x 6.9 cm. Normal renal cortex. The right cortex measures 1.8 cm. There is no demonstrated renal mass or cyst. There is no right hydronephrosis. US/Liver IMPRESSION: Hepatomegaly and diffuse fatty infiltration of the liver. Electronically Signed: Reno Arreola MD at 13:21 EST , Service support ,
== END ==
PROVIDERS: PCP Family Medicine; Referring Provider Internal Medicine Hematology & Oncology; Visit Provider Internal Medicine Hematology & Oncology
DX: E83.119 Hemochromatosis, unspecified (principal); Z85.51 Personal history of malignant neoplasm of bladder
CPT/HCPCS: 76705

== ENCOUNTER 2020-11-15 11:14 | Day surgery (SDC) | payer OTHER, MEDICARE, SELFPAY ==
[2020-11-15] VITALS (8 sets, daily range): BP systolic 117–138; BP diastolic 79–112; PULSE 61–73; RESP 16; TEMP 36.4–36.8; O2SAT 94–99; BMI 33.3
[2020-11-15] MEDS: Lactated Ringers 1,000 ML 100 ML IV (12:00)
[2020-11-15 12:06] LABS: Bedside Glucose 144 mg/dL (70-110)
--- NOTE | 2020-11-15 12:26 | HP.PCM_ITS ---
History of Present Illness Date of Admission: 11/15/20 Chief Complaint: Gross hematuria The patient is a 59 year old male with a history of bladder cancer who presented with gross hematuria to the office working to taken back to surgery to do cystoscopy random bladder biopsies bilateral trigger pyelograms and selective cytologies from both kidneys try identify the source of the hematuria last work- up was negative. Past Medical History Past Medical History (Chronic Problems): Chronic Problems (Last Updated 08/30/20 @ 11:[address] 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 [facility] received 8 chemo tx of BCG; cancer returned 3 years later and received another chemo tx of BCG Cirrhosis (Chronic) History of pulmonary embolus (PE) (Chronic) PORT PLACEMENT (Chronic) DR. STEEL x2 (first one became infected) Hereditary hemochromatosis (Chronic) Hypercoagulable state (Chronic) Medical History: Medical History (Last Reviewed 11/15/20 @ 12:[address] Jose Mckeon MD) Carpal tunnel syndrome on both sides (Chronic) G56.03 Lupus (Chronic) L93.0 Was told he has but never saw confirmation from tests performed Bladder cancer (Chronic) C67.9 01/16/2009 - Dr. [facility] received 8 chemo tx of BCG; cancer returned 3 years later and received another chemo tx of BCG Cirrhosis (Chronic) K74.60 History of pulmonary embolus (PE) (Chronic) Z86.711 PORT PLACEMENT (Chronic) DR. 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 Nausea R11.0 Hypertension I10 Allergies lorazepam [From Ativan] Allergy (Severe, Verified 11/08/20 14:52) Other out of my head for 2-3 days cephalexin [From Keflex] Adverse Reaction (Severe, Verified 11/08/20 14:52) Nausea/Vom/Diarrhea fluoxetine HCl [From Prozac] Adverse Reaction (Severe, Verified 11/08/20 14:52) Vomiting morphine Adverse Reaction (Severe, Verified 11/08/20 14:52) Rash oxycodone Adverse Reaction (Severe, Verified 11/08/20 14:52) Hives pregabalin [From Lyrica] Adverse Reaction (Severe, Verified 11/08/20 14:52) hypotension BLOOD PRESSURE DROPS duloxetine [From Cymbalta] Adverse Reaction (Verified 11/08/20 14:52) NEEDS FOLLOW-UP Home Medications: Ambulatory Orders Medication Instructions Recorded ziconotide 25 mcg/mL intrathecal 0.05 mcg/hr INTRATH UD 01/17/19 solution HYDROmorphone tablet [Dilaudid] 2 mg PO Q12H PRN 08/28/20 albuterol sulfate 90 mcg/actuation 1 - 2 puff INHALATION Q6H PRN #8.5 08/28/20 aerosol inhaler g albuterol sulfate 2.5 mg INHALATION Q4H PRN #180 ml 09/02/20 amlodipine 10 mg tablet 10 mg PO DAILY #90 tab 10/01/20 apixaban 5 mg tablet 5 mg PO BID #180 tab 10/01/20 lisinopril 10 mg tablet 10 mg PO DAILY #90 tab 10/01/20 sildenafil 50 mg tablet 50 mg PO DAILY PRN #30 tab 10/01/20 trazodone 50 mg tablet 50 mg PO QHS #90 tab 10/01/20 Surgical History: Surgical History (Last Reviewed 08/29/20 @ 05:[address] Luis E Aguillon MD) History of appendectomy Z90.49 History of carpal tunnel surgery of left wrist Z98.890 10/2019 History of carpal tunnel surgery of right wrist Z98.890 07/2018 History of cholecystectomy Z90.49 History of deviated nasal septum Z87.09 15 surgeries - Dr. Дмитрий and [facility] History of spinal fusion Z98.1 T1-C3 fusion at [facility] by Dr. Crawford on 11/03/17 Surgical History: appendectomy, cholecystectomy, herniorrhaphy, rotator cuff repair, - - Bladder surgery, neck surgery Psychiatric History: Anxiety Smoking Status: Current every day smoker - *Family History Paternal Family History: Family History (Last Reviewed 08/29/20 @ 05:[address] Luis E Aguillon MD) Father Prostate cancer Heart disease Grandfather Diabetes Grandmother Diabetes Mother Hypertension Heart disease Sister Hypertension History Items: No pertinent history Maternal Family History: Family History (Last Reviewed 08/29/20 @ 05:[address] Luis E Aguillon MD) Father Prostate cancer Heart disease Grandfather Diabetes Grandmother Diabetes Mother Hypertension Heart disease Sister Hypertension History Items: No pertinent history Review of Systems Constitutional: Denies: Chills, Fever, Weight Change HEENT: Denies: Head Aches, Sinus Congestion, Sinus Drainage Cardiovascular: Denies: Chest Pain, Palpitations Respiratory: Denies: Cough, Shortness of breath at rest, Sputum production Gastrointestinal: Denies: Abdominal Pain, Nausea, Vomiting Genitourinary: Denies: Dysuria Musculoskeletal: Denies: Joint Pain, Joint Tenderness Skin: Denies: Rash, Wounds Neurological: Denies: Numbness, Tingling, Focal weakness Psychiatric: Denies: Anxiety, Depression, Homicidal Ideations, Suicidal Ideations Hematologic/ Lymphatic: Denies: Easy Bruising, Easy Bleeding VTE Information - Inpt Only VTE Present on Admission: No - Physical Exam Vitals/I&O's: Vital Signs Temp Pulse Resp BP Pulse Ox 98.3 F 73 16 136/86 H 95 11/15/20 11:37 11/15/20 11:37 11/15/20 11:37 11/15/20 11:37 11/15/20 11:37 Oxygen Delivery Method Room Air Weight: 111.4 kg Body Mass Index (BMI) 33.3 Finger Stick Blood Glucose 96 General: Alert, Oriented x3, Cooperative HEENT: Atraumatic, PERRLA, EOMI, Normocephalic Neck: Supple, No JVD, Negative Carotid Bruits Lungs: Clear to auscultation, Normal air movement Cardiovascular: Regular rate, No murmurs Abdomen: Bowel Sounds Present, Soft, Non Tender Extremities: No edema, Capillary Refill Less than 3 Seconds Skin: No rashes, No breakdown Musculoskeletal: No Tenderness to Palpation of Joints or Extremities Neurological: Cranial nerves II-XII grossly intact Psych/Mental Status: Normal Affect, Appropriate Laboratory Results 11/15/20 11:53: POC Glucose 144 H Current Medications Cefazolin Sodium 2 gm/ Sodium (Chloride) 110 mls @ 150 mls/hr IV PREOP ONE Stop: 11/15/20 13:43 Lactated Ringer's () 1,000 mls @ 100 mls/hr IV .Q10H ESHA Last Admin: 11/15/20 12:00 Dose: 100 mls/hr Documented by: Assessment/Plan All Active Problems (Last Updated 08/30/20 @ 11:[address] Ger Dang MD) COVID-19 (Acute) Plan to proceed to work-up for gross hematuria with cystoscopy cystoscopy bilateral pyelograms random bladder biopsy and will send urine from cytology from each kidney.
--- NOTE | 2020-11-15 12:29 | DCINST_ITS ---
Discharge Diet: Light diet - advance as tolerated Discharge Activity: Return to Normal Activity Call your doctor if your incision/area has: Sudden Increased Bleeding Suture Line Care: Avoid Pulling/Pushing, Avoid Pinching/Bending Allergies/Adverse Reactions: Allergies lorazepam [From Ativan] Allergy (Severe, Verified 11/08/20 14:52) Other out of my head for 2-3 days cephalexin [From Keflex] Adverse Reaction (Severe, Verified 11/08/20 14:52) Nausea/Vom/Diarrhea fluoxetine HCl [From Prozac] Adverse Reaction (Severe, Verified 11/08/20 14:52) Vomiting morphine Adverse Reaction (Severe, Verified 11/08/20 14:52) Rash oxycodone Adverse Reaction (Severe, Verified 11/08/20 14:52) Hives pregabalin [From Lyrica] Adverse Reaction (Severe, Verified 11/08/20 14:52) hypotension BLOOD PRESSURE DROPS duloxetine [From Cymbalta] Adverse Reaction (Verified 11/08/20 14:52) NEEDS FOLLOW-UP Medications to take at Discharge ziconotide 25 mcg/mL intrathecal solution 0.05 mcg/hr INTRATH UD 01/17/19 HYDROmorphone tablet [Dilaudid] 2 mg PO Q12H PRN 08/28/20 albuterol sulfate 90 mcg/actuation aerosol inhaler 1 - 2 puff INHALATION Q6H PRN #8.5 g 08/28/20 albuterol sulfate 2.5 mg INHALATION Q4H PRN #180 ml 09/02/20 amlodipine 10 mg tablet 10 mg PO DAILY #90 tab 10/01/20 apixaban 5 mg tablet 5 mg PO BID #180 tab 10/01/20 lisinopril 10 mg tablet 10 mg PO DAILY #90 tab 10/01/20 sildenafil 50 mg tablet 50 mg PO DAILY PRN #30 tab 10/01/20 trazodone 50 mg tablet 50 mg PO QHS #90 tab 10/01/20 Primary Care Physician: Aleksandr Duarte DO [Primary Care Provider] - Test Results: Test results from this visit will be discussed in further detail at your follow- up appointment, if applicable. Please Follow Up With: Jose Mckeon MD When: in 2 weeks, please call to make an appointment.
[2020-11-15] MEDS: Cefazolin 2 GM in 0.9% Normal Saline 100 ML IV (12:47)
--- NOTE | 2020-11-15 12:51 | RAD_ITS ---
STUDY: X-RAY - ABDOMEN/PELVIS REASON FOR EXAM: Male, 59 years old. Hematuria TECHNIQUE: Single AP view of the abdomen / pelvis. COMPARISON: None. FINDINGS: Fluoroscopy the abdomen was utilized and operating room during a retrograde Polygram and 2 images suspended for interpretation. RAD/Abdomen Single View IMPRESSION: Fluoroscopy during left retrograde Polygram. Electronically Signed: Quinn Kaur MD at 13:53 EST Tel , Service support ,
--- NOTE | 2020-11-15 12:51 | RAD_ITS ---
STUDY: X-RAY - ABDOMEN/PELVIS REASON FOR EXAM: Male, 59 years old. Hematuria TECHNIQUE: Single AP view of the abdomen / pelvis. COMPARISON: None. FINDINGS: Fluoroscopy of the abdomen was utilized and operating room during retrograde Polygram and a single image is submitted for interpretation. RAD/Abdomen Single View IMPRESSION: Fluoroscopy during retrograde Polygram. Electronically Signed: Quinn Kaur MD at 13:52 EST Tel , Service support ,
--- NOTE | 2020-11-15 13:14 | OP.PCM_ITS ---
Report of Operation Date of Procedure: 11/15/20 Pre-Operative Diagnosis: Gross hematuria history of bladder cancer Post-Operative Diagnosis: Same Surgery/Procedure Performed:: Cystoscopy, bilateral retrograde pyelograms. Description of Surgical Findings:: 59-year-old male taken back to the operating room at the smooth induction of general anesthesia he was placed in dorsolithotomy position. The penis testicles were prepped and draped in usual fashion. Went into the bladder with a 30 degree lens 21 [place] scope the entire length the urethra is normal the prostate was normal inside the bladder there was some scar in the back of the bladder from prior tumor there was no active bleeding. The rest of the bladder was completely normal with no lesions or stones tumors. The trigone was normal, I cannulated the left ureteral orifice did a retrograde pyelogram this was completely normal with contrast going up to the kidney no filling defects in the left kidney. I then did a retrograde pyelogram on the right side cannulated the right ureteral orifice did a retrograde pyelogram this is also completely normal with no filling defects whatsoever inspected the bladder again with 30 and 70 degree lens saw no lesions whatsoever. The prostate was normal size. I do not find any abnormality explain the patient's hematuria that he claims he has been seen. We sent a urine cytology recently as this just came back atypical and the prior cytology came back negative. For now I did not see anything the biopsy I did not see anything to mary after want to continue with monitoring as to what is the cause of the hematuria. Type of Anesthesia:: General Drains: none - Admit VTE Documentation VTE Present on Admission: No VTE Mechan Device Prophylaxis: SCD's
[2020-11-15] MEDS: Ketorolac 15 MG/ML Vial IV (13:38)
[2020-11-15 13:50] LABS: Bedside Glucose 101 mg/dL (70-110)
== END 2020-11-15 14:50 | disposition home or self-care (01) ==
LOC: SDC 11:14 → AC 11:15
PROVIDERS: PCP Family Medicine; Referring Provider Urology; Visit Provider Urology
PROC: (CPT 52332; principal; 2020-11-15 13:00)
DX: R31.0 Gross hematuria (principal); I10 Essential (primary) hypertension; E78.5 Hyperlipidemia, unspecified; E11.9 Type 2 diabetes mellitus without complications; K75.81 Nonalcoholic steatohepatitis (NASH); E83.119 Hemochromatosis, unspecified; M32.9 Systemic lupus erythematosus, unspecified; E83.110 Hereditary hemochromatosis; F32.9 Major depressive disorder, single episode, unspecified; F17.200 Nicotine dependence, unspecified, uncomplicated; F41.9 Anxiety disorder, unspecified; Z85.51 Personal history of malignant neoplasm of bladder; Z86.16 Personal history of COVID-19; Z86.711 Personal history of pulmonary embolism; Z79.899 Other long term (current) drug therapy; Z79.01 Long term (current) use of anticoagulants
CPT/HCPCS: 00910; 52005; 74018; 76000; 82962; J7120; A4216

== ENCOUNTER → 2020-12-09 12:19 | Outpatient (CLI) | payer OTHER, MEDICARE, SELFPAY ==
--- NOTE | 2020-12-09 11:30 | CYSPIN_PTH ---
PATIENT: YONATHAN HERNANDEZ Jr. LOC: [facility] U#:[id number] AGE/SX: 64/M ROOM: RE12/09/[address]: ELIAN Heredia : 1960 BED: DIS: SPEC #: [id number] RECD: 12/09/20 12:55 STATUS: SEAN RERosie #: [id number] SUZANNE: 12/09/20 11:[address]: Wendy Sanderson NP DEPT: CYTOLOGY RECD BY: Donya Bennett ENTERED: 12/09/20 12:56 SP TYPE: CYSPIN FL OT DR: Dr. Xavier Turcios MD Tissues: Urine Procedures: Pap Stain (control) Special Stain Group II Cytospin Fluid HEADER OPERATION: Not noted PRE-OP DIAGNOSIS: Gross hematuria TISSUE SUBMITTED: Urine for cytology DIAGNOSIS CYTOLOGY Urine for cytology (cytospin): Negative for malignant cells. Paucicellular specimen. See comment. SJ:carlotta 12/10/2020 COMMENT Clinical correlation and appropriate follow up are necessary. CYTOLOGY STUDY Slides are reviewed. CYTOLOGY GROSS Received is 60 ml of light yellow cloudy fluid labeled with the patient's name and and designated per the requisition as urine. Submitted for cytology preparation. / carlotta 12/09/2020 TC:5 CPT: 35822
[2020-12-09 12:35] LABS: Cytology, Body Fluid / CSF SEE PATHOLOGY REPORT
== END ==
PROVIDERS: PCP Family Medicine; Visit Provider Nurse Practitioner Adult Health
DX: R31.0 Gross hematuria (principal)
CPT/HCPCS: 88108; 88313

== ENCOUNTER → 2020-12-17 13:52 | Outpatient (CLI) | payer OTHER, MEDICARE, SELFPAY ==
--- NOTE | 2020-12-17 13:56 | CT_ITS ---
INDICATION: GROSS HEMATURIA EXAMINATION: CT Abdomen And Pelvis WO/W Contrast Injection TECHNIQUE: Helically acquired images were obtained of the abdomen and pelvis before and after IV contrast. A radiation dose optimization technique was used for this scan. IV Contrast dosage and agent: 100 cc Isovue 300 Oral contrast: None. COMPARISON: 06/19/2020. FINDINGS: Visualized lung bases: Emphysematous changes. Liver: Unremarkable Gallbladder: Surgically absent. Spleen: Unremarkable Pancreas: Unremarkable Adrenal Glands: Unremarkable Kidneys: Unremarkable Ureters: Unremarkable GI Tract: Scattered diverticula throughout the colon without evidence of inflammation. Vasculature: Mild scattered aortoiliac atherosclerotic calcifications. Lymphadenopathy: None Peritoneum: No ascites. Bladder: Unremarkable Reproductive organs: Unremarkable Bones/Soft tissues: Evidence of a prior repair of a right inguinal hernia with mesh. There are mild degenerative changes of the visualized lumbar spine. Minimal loss of height of the superior endplate of the T11 vertebrae. Stimulator device is seen overlying the left buttock with the leads extending to the thoracic region. CT/CT Abd/Pelvis W/WO Contrast IMPRESSION: No acute abnormalities. Specifically, no finding to explain patient''s hematuria. No evidence of recurrent or metastatic disease in the abdomen or pelvis. Electronically Signed: Justin Linares MD at 21:07 EDT Tel , Service support ,
[2020-12-17 14:31] LABS: CREATININE FINGERSTICK 1.4 mg/dL (0.70-1.30)
[2020-12-17] MEDS: 0.9% Saline Lock 10 ML Syringe IV (14:35)
== END ==
PROVIDERS: PCP Family Medicine; Referring Provider Nurse Practitioner Adult Health; Visit Provider Nurse Practitioner Adult Health
DX: R31.0 Gross hematuria (principal); Z85.51 Personal history of malignant neoplasm of bladder
CPT/HCPCS: 74178; Q9967; A4216

== ENCOUNTER → 2021-02-18 13:13 | Outpatient (CLI) | payer OTHER, MEDICARE, SELFPAY ==
[2021-02-18 12:38] VITALS: BMI 31.9
--- NOTE | 2021-02-18 13:14 | CT_ITS ---
STUDY: LOW DOSE CT LUNG CANCER SCREENING REASON FOR EXAM: Male, 60 years old. Lung cancer screening -- 42 pack year history; current smoker; asymptomatic. Patient has a history of hemochromatosis and urinary bladder cancer.. RADIATION DOSAGE (If Supplied By Facility): CTDIvol = ( 4.02 ) mGy, DLP = ( 135.42 ) mGycm TECHNIQUE: No contrast was administered. Low dose technique was utilized (average mAS-38 and kVp 120). 1.25 mm axial source images with a slice interval of 1.25-mm were reconstructed in lung windows. 2.5 mm axial source images with a slice interval of 2.5-mm were reconstructed in lung windows. 5.0 mm axial source images with a slice interval of 5.0-mm were reconstructed in soft tissue windows. Nodule measured using lung windows on PACS and/or independent workstation with automated measurement of minimum and maximum diameter. Nodule measurement reported as average diameter rounded to the nearest whole number. Growth is defined as an increase ins size of greater than 1.5 mm. COMPARISON: Comparison is made with prior examination dated 01/30/2020. A right-sided portacatheter is seen with the tip in the superior vena cava. NODULES: There is a stable 5 mm noncalcified nodule along the anterior lateral aspect of the right middle lobe as seen on axial image #163. Emphysema: Stable mild linear scarring at the lung bases. Endobronchial lesion: None Aorta: Scattered atherosclerotic changes. Coronary arteries: Unremarkable CT/Low Dose CT Lung Screening IMPRESSION: Lung-RADS category 2 - Continue annual screening with LDCT in 12 months. IMPORTANT NOTES FOR USE: ACR Lung-RADS Version 1.1 Assessment Categories Release Date: 2018 Category: Coded 0-4 bases on nodule(s) with highest degree of suspicion. Negative screen is defined as categories 1 and 2; a positive screen is defined as categories 3 and 4. Category 3 and 4A nodules that are unchanged on interval CT should be coded as category 2, and individuals returned to screening in 12 months. Category 4X: Category 3 or 4 nodules with additional imaging findings that increase the suspicion of lung cancer, such as spiculation, GGN that doubles in size in 1 year, enlarged lymph notes, etc. Category Modifiers: S (significant finding unrelated to lung cancer) Electronically Signed: Reno Arreola MD at 13:46 EDT , Service support ,
== END ==
PROVIDERS: PCP Family Medicine; Referring Provider Nurse Practitioner Family; Visit Provider Nurse Practitioner Family
DX: Z12.2 Encounter for screening for malignant neoplasm of respiratory organs (principal); F17.209 Nicotine dependence, unspecified, with unspecified nicotine-induced disorders
CPT/HCPCS: 71271

== ENCOUNTER → 2021-08-29 14:25 | Outpatient (CLI) | payer OTHER, MEDICARE, SELFPAY ==
[2021-08-29 15:42] LABS: CRP 7.62 mg/L (0.0-3.0); Thyroid Stim Hormone (TSH) 0.87 uIU/mL (0.358-3.74)
[2021-08-29 15:57] LABS: Erythrocyte Sedimentation Rate 13 mm/hr (0-20)
== END ==
PROVIDERS: PCP Family Medicine; Referring Provider Nurse Practitioner Family; Visit Provider Nurse Practitioner Family
DX: R63.4 Abnormal weight loss (principal); R61 Generalized hyperhidrosis
CPT/HCPCS: 36415; 84443; 85652; 86140

== ENCOUNTER → 2021-09-09 07:32 | Outpatient (CLI) | payer OTHER, MEDICARE, SELFPAY ==
--- NOTE | 2021-09-09 07:33 | CT_ITS ---
STUDY: CT SOFT TISSUE NECK WITH CONTRAST REASON FOR EXAM: Male, 60 years old. Swelling left neck RADIATION DOSAGE (If Supplied By Facility): CTDIvol = ( 18.26 ) mGy, DLP = ( 611.35 ) mGycm TECHNIQUE: The patient was scanned in a multi-detector CT scanner. High resolution transaxial imaging was performed following intravenous administration of IV 75mL Isovue-370. Sagittal and coronal images were reconstructed. Individualized dose optimization techniques were used for this CT. COMPARISON: Comparison is made with prior study dated 11/11/2018. FINDINGS: A right-sided port catheter is seen with the tip in the superior vena cava. Normal bilateral parotid glands. Normal bilateral ax survey worker spaces. Normal bilateral parapharyngeal spaces. Normal bilateral carotid spaces. Normal bilateral sublingual and submandibular glands and spaces. Normal visualized nasopharynx. Normal retropharyngeal space. Normal perivertebral space. Normal visualized bilateral faucial tonsils. The visualized tongue, tongue base and oropharynx are normal. There are minimally enlarged lymph nodes of the neck, with preservation of normal jose architecture, consistent with a reactive lymph hyperplasia. There is no demonstrated solid or cystic mass lesion. There is no abnormal contrast enhancement. Normal epiglottis, bilateral vallecula and hypopharynx. The pre-epiglottic and paraglottic adipose spaces are normal. Normal visualized bilateral piriform sinuses, aryepiglottic folds, vocal cords, and arytenoid-cricoid articulations. Normal subglottic trachea. Normal bilateral lobes of the thyroid gland. Normal visualized pulmonary apices. Stable bilateral maxillary sinus cysts versus polyps. Prior laminectomy and posterior and anterior fusion at the C3-C4, C4-C5 and C5-C6 levels. CT/Soft Tissue Neck WITH Contrast IMPRESSION: No acute abnormality is seen. Electronically Signed: Reno Arreola MD at 12:26 EST , Service support ,
[2021-09-09] MEDS: 0.9% Saline Lock 10 ML Syringe IV (07:50)
== END ==
PROVIDERS: PCP Family Medicine; Referring Provider Nurse Practitioner Family; Visit Provider Nurse Practitioner Family
DX: R22.1 Localized swelling, mass and lump, neck (principal)
CPT/HCPCS: 70491; Q9967; A4216

== ENCOUNTER 2022-01-25 23:39 | Emergency (ER) | payer OTHER, MEDICARE, SELFPAY ==
[2022-01-25 23:40] VITALS: BP 113/82; PULSE 73; RESP 17; TEMP 36.3; O2SAT 92; BMI 29.2
--- NOTE | 2022-01-25 23:41 | EKG12_ITS ---
Test Reason : DYSRHYTHMIA Blood Pressure : / mmHG Vent. Rate : 075 BPM Atrial Rate : 075 BPM P-R Int : 170 ms QRS Dur : 096 ms QT Int : 430 ms P-R-T Axes : 066 057 055 degrees QTc Int : 480 ms Normal sinus rhythm Inferior infarct , age undetermined Abnormal ECG Confirmed by BAM BENTLEY, HALEY ([id number]), editor farm journal SALOMON ROSADO ([id number]) on 01/26/2022 1:18:41 PM Referred By: RICKEY Confirmed By:HALEY KUHN MD
[2022-01-25 23:50] VITALS: BP 112/69; PULSE 63; RESP 18; O2SAT 92
[2022-01-25 23:52] LABS: Absolute Lymphocyte Count 4.62 X10^3/uL (0.83-4.51); Absolute Neutrophil Count 5.2 X10^3/uL (2.0-7.7); Basophil# 0.06 X10^3/uL; Basophil% 0.5 % (0-1); Eosinophils% 1.8 % (0-5); Hematocrit 47.8 % (40-54); Lymphocyte # 4.62 X10^3/ul (0.83-4.51); Lymphocyte % 41.5 % (19-41); Mean Corp Hgb Conc 35.6 g/dL (32-36); Mean Corpuscular Hgb 32.4 pg (27.0-32.0); Mean Platelet Vol. 9.7 fl (6.2-12.0); Monocyte# 0.99 X10^3/uL; Monocyte% 8.9 % (0-10); NRBC Flagged by Analyzer 0 % (0-5); Neutrophil # 5.21 X10^3/uL (2.7-7.7); Neutrophil % 46.9 % (47-70); Platelet Count 248 K/mm3 (150-450); RBC Distribution Width CV 13.6 % (11.6-14.6); RBC Distribution Width SD 46.4 fl (35.1-43.9); Red Blood Count 5.25 M/mm3 (4.6-6.2); White Blood Count 11.1 K/mm3 (4.4-11.0)
[2022-01-26 00:10] LABS: Anion Gap 8 (5-15); BUN 21 mg/dL (7-18); Calcium,Total 8.9 mg/dL (8.5-10.1); Chloride 106 mmol/L (98-107); EST Glomerular Filtration Rate 81 mL/min (>60); Est Glom Filt Rate - Afr Amer 98 mL/min (>60); Glucose 156 mg/dL (74-106); Potassium 3.6 mmol/L (3.5-5.1); Sodium Level 140 mmol/L (136-145); Troponin-I HS < 3 pg/mL (3.0-78.0)
[2022-01-26 00:24] VITALS: BP 102/79; BP 106/75; BP 107/72; PULSE 58; PULSE 68; PULSE 72
--- NOTE | 2022-01-26 00:40 | RAD_ITS ---
EXAM: XR CHEST, 1 VIEW CLINICAL INDICATION: syncope TECHNIQUE: Frontal view of the chest. This report was created using [employer] report generation technology. COMPARISON: 09/02/2020. FINDINGS: LUNGS AND PLEURAL SPACES: Unremarkable. No consolidation or edema. No pneumothorax. No effusion. HEART: Unremarkable. Cardiac silhouette not enlarged. MEDIASTINUM: Central airways and mediastinal contour are unremarkable. BONES/JOINTS: Unremarkable. SOFT TISSUES: Unremarkable. TUBES, LINES AND DEVICES: Right-sided central line tip at cavoatrial junction. RAD/Chest 1 View (Portable) IMPRESSION: 1. Right-sided central line tip at cavoatrial junction. 2. No acute disease or change. Electronically Signed: Michael Bagley MD at 0:52 EDT ,
--- NOTE | 2022-01-26 01:47 | EDS_ITS ---
HPI History of Present Illness Chief Complaint: Syncope Narrative Narrative: Patient is a 61-year-old male who states that he got up from sleep to use the bathroom this evening. He states he stood up off the toilet and then felt lightheaded and dizzy and developed tunnel vision and then had a brief episode of passing out. He denies any chest pain or palpitations prior to the event. He states this is not happened before and secondary to this EMS was called and he was brought in for evaluation. He states that he has been working hard for the last few days and not drinking as much fluid as he should. He also states that he took an oral Dilaudid and trazodone this evening which he does not normally do. [facility] Medical History Abdominal pain Bladder cancer Carpal tunnel syndrome on both sides Cirrhosis Depression Glossopharyngeal neuralgia Hereditary hemochromatosis History of pulmonary embolus (PE) Hypercoagulable state Hypertension Insomnia Lupus Nausea Night sweats PORT PLACEMENT Tobacco use disorder, continuous Unintentional weight loss Home Medications hydromorphone 2 mg PO Q8H PRN PRN 01/25/22 [History Last Taken 01/25/22] trazodone 200 mg PO QHS PRN PRN 01/25/22 [History Last Taken 01/25/22] Allergy/AdvReac Type Severity Reaction Status Date / Time lorazepam [From Ativan] Allergy Severe Other Verified 09/04/21 14:10 cephalexin [From Keflex] AdvReac Severe Nausea/Vom/ Verified 09/04/21 14:10 Diarrhea fluoxetine HCl [From Prozac] AdvReac Severe Vomiting Verified 09/04/21 14:10 morphine AdvReac Severe Rash Verified 09/04/21 14:10 oxycodone AdvReac Severe Hives Verified 09/04/21 14:10 pregabalin [From Lyrica] AdvReac Severe hypotension Verified 09/04/21 14:10 duloxetine [From Cymbalta] AdvReac NEEDS Verified 09/04/21 14:10 FOLLOW-UP Family History Father Prostate cancer Heart disease Grandfather Diabetes Grandmother Diabetes Mother Hypertension Heart disease Sister Hypertension Sisters x2 Surgical History History of appendectomy History of carpal tunnel surgery of left wrist History of carpal tunnel surgery of right wrist History of cholecystectomy History of deviated nasal septum History of spinal fusion Social History Smoking Status: Current every day smoker tobacco type: cigarettes Tobacco: How many years used: 41 Smokeless tobacco user: other Electronic Cigarette Use: not used second hand exposure: Yes quit status: not considering quitting counseling given: provider counseling alcohol intake: never substance use type: does not use what type of physical activity do you participate in: none seatbelt use: always do you feel safe at home: Yes ROS ROS ED Constitutional Constitutional ED: Denies chills or fever(s) ENT ENT ED: Denies sore throat Cardiovascular Cardiovascular: Denies chest pain or palpitations Respiratory/Chest Respiratory/Chest: Denies cough or dyspnea Gastrointestinal Gastrointestinal: Denies abdominal pain, diarrhea, nausea or vomiting Genitourinary Genitourinary ED: Denies dysuria Musculoskeletal Musculoskeletal: Denies back pain, myalgias or neck pain Integumentary Denies rash Neurologic Neurologic: Denies headache(s) Hematologic/Lymphatic Hematologic/Lymphatic: Denies easy bleeding or easy bruising EXAM Physical Exam Const Vital Signs: 01/25/22 23:40 01/25/22 23:48 01/25/22 23:49 Temperature 97.4 F L Temperature Source Oral Pulse Rate 73 Pulse Rate [Lying] Pulse Rate [Sitting (for 1 minute prior to obtaining)] Pulse Rate [Standing (for 1 minute prior to obtaining)] Respiratory Rate 17 Respiratory Effort Normal Non-Labored Respiratory Pattern Normal Blood Pressure 113/82 H Blood Pressure [Lying] Blood Pressure [Sitting (for 1 minute prior to obtaining)] Blood Pressure [Standing (for 1 minute prior to obtaining)] Blood Pressure Mean 92 Blood Pressure Mean [Lying] Blood Pressure Mean [Sitting (for 1 minute prior to obtaining)] Blood Pressure Mean [Standing (for 1 minute prior to obtaining)] Pulse Ox 92 Oxygen Delivery Method Room Air Room Air 01/25/22 23:50 01/26/22 00:24 Temperature Temperature Source Pulse Rate 63 Pulse Rate [Lying] 58 L Pulse Rate [Sitting (for 1 minute prior to obtaining)] 68 Pulse Rate [Standing (for 1 minute prior to obtaining)] 72 Respiratory Rate 18 Respiratory Effort Respiratory Pattern Blood Pressure 112/69 Blood Pressure [Lying] 107/72 Blood Pressure [Sitting (for 1 minute prior to obtaining)] 106/75 Blood Pressure [Standing (for 1 minute prior to obtaining)] 102/79 Blood Pressure Mean 83 Blood Pressure Mean [Lying] 83 Blood Pressure Mean [Sitting (for 1 minute prior to obtaining)] 85 Blood Pressure Mean [Standing (for 1 minute prior to obtaining)] 86 Pulse Ox 92 Oxygen Delivery Method Room Air Positive well nourished and well developed General Appearance ED: well developed HEENT Reports dry mucous membranes HEENT Narrative: Normocephalic atraumatic Mouth ED: Yes dry mucous membranes Mouth: dry mucous membranes Eyes PERRL and EOMs intact bilaterally Neck supple Neck Narrative: No bony deformity or step-off of the cervical spine no midline pain with palpation Chest Wall palpation of chest normal Resp normal respiratory effort and clear to auscultation bilaterally Cardio regular rate and regular rhythm GI non-tender, non-distended and no masses GI Narrative: No voluntary guarding or rigidity no pulsatile mass Palpation: soft Back/Spine Back/Spine Narrative: No bony deformity or step-off of the thoracic or lumbar spine no midline pain with palpation Extremity normal to inspection Neuro oriented x3 and CN's II-XII intact bilaterally Neuro Narrative: No truncal ataxia. NIH stroke scale score of 0 Sensorium / Orientation: alert Motor Exam: strength 5/5 throughout Psych mental status grossly normal Skin no rashes or lesions noted Skin Narrative: Skin turgor is increased MDM MDM MDM Narrative Medical decision making narrative: Patient presented to the ER borderline hypotensive but otherwise awake and alert with no signs of trauma or acute neurologic event. His history and exam is most consistent with orthostatic syncope. Orthostatic vitals were obtained and are positive with an increase of over 24 his heart rate. Patient had basic blood work obtained which revealed no clinically significant findings. He was given 1 L of fluid and reported feeling better. He was ambulated in the ER and was able to do so with a steady gait and without any bouts of syncope. Therefore at this time as exam does not reveal any signs of trauma his work-up shows no severe electrolyte derangement or signs of cardiac damage she is otherwise safe for discharge Lab Data Attestation: I reviewed the patient's lab results. Labs: Laboratory Results - last 24 hr 01/25/22 01/25/22 23:31 23:31 WBC 11.1 H RBC 5.25 Hgb 17.0 H Hct 47.8 MCV 91.0 MCH 32.4 H MCHC 35.6 RDW Std Deviation 46.4 H RDW Coeff of Marlene 13.6 Plt Count 248 MPV 9.7 Immature Gran % (Auto) 0.400 Neut % (Auto) 46.9 L Lymph % (Auto) 41.5 H Chester % (Auto) 8.9 Eos % (Auto) 1.8 Baso % (Auto) 0.5 Absolute Neuts (auto) 5.2 Absolute Lymphs (auto) 4.62 H Nucleated RBC % 0 Sodium 140 Potassium 3.6 Chloride 106 Carbon Dioxide 26.0 Anion Gap 8 BUN 21 H Creatinine 1.00 Estim Creat Clear Calc 87.30 Est GFR (MDRD) Af Amer 98 Est GFR (MDRD) Non-Af 81 BUN/Creatinine Ratio 21.0 H Glucose 156 H Calcium 8.9 Troponin I High Sens < 3 L Radiography Diagnostic Testing: Clinical Impression(s) from Imaging Studies Chest X-Ray 01/26/22 00:40 IMPRESSION: 1. Right-sided central line tip at cavoatrial junction. 2. No acute disease or change. Electronically Signed: Michael Bagley MD at 0:52 EDT , Chest x-ray as interpreted by the emergency medicine physician shows a right- sided central line with tip at the cavoatrial junction. Otherwise there is no acute infiltrate pneumothorax or pleural effusion Discharge Plan Triage Chief Complaint: Syncope ED Provider: Kwadwo Cabrales Dx/Rx/DC Orders Clinical Impression: Dehydration, Orthostatic syncope Instructions: Dehydration, ED Hypotension, Orthostatic Prescriptions: No Action hydromorphone 2 mg tablet 2 mg PO Q8H PRN PRN (Reason: Pain) RF: 0 trazodone 100 mg tablet 200 mg PO QHS PRN PRN (Reason: Sleep) RF: 0 Primary Care Provider: Aleksandr Duarte Referrals: Aleksandr Duarte, DO [Primary Care Provider] - Disposition Disposition: Home, Self Care Discharge Date/Time: 01/26/22 01:54
== END 2022-01-26 01:54 | disposition home or self-care (01) ==
PROVIDERS: Emergency Provider Emergency Medicine; PCP Family Medicine; Visit Provider Emergency Medicine
DX: E86.0 Dehydration (principal); R55 Syncope and collapse; F17.210 Nicotine dependence, cigarettes, uncomplicated; Z86.711 Personal history of pulmonary embolism
CPT/HCPCS: 71045; 80048; 84484; 85025; 93005; 99285; A4216

== ENCOUNTER → 2022-03-24 | Outpatient (CLI) | payer OTHER, MEDICARE, SELFPAY ==
--- NOTE | 2022-03-24 14:07 | CT_ITS ---
STUDY: LOW DOSE CT LUNG CANCER SCREENING REASON FOR EXAM: Male, 61 years old. Lung cancer screening -- 42 pk yr hx;current smoker;asymptomatic RADIATION DOSAGE (If Supplied By Facility): CTDIvol = ( 4.02 ) mGy, DLP = ( 139.94 ) mGycm TECHNIQUE: No contrast was administered. Low dose technique was utilized (average mAS-38 and kVp 120). 1.25 mm axial source images with a slice interval of 1.25-mm were reconstructed in lung windows. 2.5 mm axial source images with a slice interval of 2.5-mm were reconstructed in lung windows. 5.0 mm axial source images with a slice interval of 5.0-mm were reconstructed in soft tissue windows. COMPARISON: Comparison is made with prior study dated 02/18/2021. The right-sided malik catheter seen with the tip in the superior vena cava. NODULES: Stable 5 mm noncalcified nodule in the peripheral lateral aspect of the right middle lobe as seen on axial image #172. Emphysema: Mild scarring along the anterior medial aspect of the lingular segment of the left upper lobe. Endobronchial lesion: Unremarkable Aorta: Scattered atherosclerotic plaque formation. CORONARY ARTERIES: Coronary artery calcification is not seen. Heart: Unremarkable Pulmonary artery: Mediastinal nodes: Unremarkable Other chest and abdominal findings: CT/Low Dose CT Lung Screening IMPRESSION: Lung-RADS category 2 - Continue annual screening with LDCT in 12 months. IMPORTANT NOTES FOR USE: ACR Lung-RADS Version 1.1 Assessment Categories Release Date: 2018 Category: Coded 0-4 bases on nodule(s) with highest degree of suspicion. Negative screen is defined as categories 1 and 2; a positive screen is defined as categories 3 and 4. Category 3 and 4A nodules that are unchanged on interval CT should be coded as category 2, and individuals returned to screening in 12 months. Category 4X: Category 3 or 4 nodules with additional imaging findings that increase the suspicion of lung cancer, such as spiculation, GGN that doubles in size in 1 year, enlarged lymph notes, etc. Category Modifiers: S (significant finding unrelated to lung cancer) Electronically Signed: Reno Arreola MD at 14:46 EDT ,
== END | disposition home or self-care (01) ==
LOC: CT 14:07
PROVIDERS: PCP Family Medicine; Referring Provider Nurse Practitioner Family; Visit Provider Nurse Practitioner Family
DX: Z87.891 Personal history of nicotine dependence (principal); Z12.2 Encounter for screening for malignant neoplasm of respiratory organs
CPT/HCPCS: 71271

== ENCOUNTER → 2022-05-21 | Outpatient (CLI) | payer OTHER, MEDICARE, SELFPAY ==
[2022-05-21 12:07] LABS: Absolute Lymphocyte Count 1.93 X10^3/uL (0.83-4.51); Absolute Neutrophil Count 3.2 X10^3/uL (2.0-7.7); Basophil# 0.04 X10^3/uL; Basophil% 0.7 % (0-1); Eosinophil# 0.09 X10^3/uL; Eosinophils% 1.6 % (0-5); Hematocrit 45.3 % (40-54); Hemoglobin 15.6 g/dL (13.0-16.5); Lymphocyte # 1.93 X10^3/ul (0.83-4.51); Lymphocyte % 33.3 % (19-41); Mean Corp Hgb Conc 34.4 g/dL (32-36); Mean Corpuscular Hgb 31.8 pg (27.0-32.0); Mean Corpuscular Volume 92.4 fL (80-94); Monocyte# 0.54 X10^3/uL; Monocyte% 9.3 % (0-10); NRBC Flagged by Analyzer 0 % (0-5); Neutrophil # 3.16 X10^3/uL (2.7-7.7); Neutrophil % 54.6 % (47-70); Platelet Count 207 K/mm3 (150-450); RBC Distribution Width CV 13.6 % (11.6-14.6); RBC Distribution Width SD 46.1 fl (35.1-43.9); White Blood Count 5.8 K/mm3 (4.4-11.0)
[2022-05-21 12:18] LABS: AST(SGOT) 12 U/L (15-37); Alanine Aminotransfer ALT/SGPT 32 U/L (16-61); Albumin, Serum 3.6 g/dL (3.2-5.0); Alkaline Phosphatase 99 U/L (45-117); Anion Gap 6 (5-15); BUN 23 mg/dL (7-18); BUN/Creat Ratio 28.6 RATIO (10-20); Calcium,Total 8.5 mg/dL (8.5-10.1); Chloride 107 mmol/L (98-107); EST Glomerular Filtration Rate 104 mL/min (>60); Est Glom Filt Rate - Afr Amer 126 mL/min (>60); Globulin 3.5 g/dL (2.2-4.2); Glucose 104 mg/dL (74-106); Potassium 4.1 mmol/L (3.5-5.1); Protein, Total 7.1 g/dL (6.4-8.2); Sodium Level 138 mmol/L (136-145)
== END | disposition home or self-care (01) ==
PROVIDERS: PCP Family Medicine; Referring Provider Physician Assistant; Visit Provider Physician Assistant
DX: Z01.818 Encounter for other preprocedural examination (principal)
CPT/HCPCS: 36415; 80053; 85025

== ENCOUNTER → 2022-05-29 | Outpatient (CLI) | payer OTHER, MEDICARE, SELFPAY ==
--- NOTE | 2022-05-29 06:35 | EKG12_ITS ---
Test Reason : PRE-OP Blood Pressure : / mmHG Vent. Rate : 071 BPM Atrial Rate : 071 BPM P-R Int : 138 ms QRS Dur : 086 ms QT Int : 396 ms P-R-T Axes : 040 058 048 degrees QTc Int : 430 ms Normal sinus rhythm Normal ECG Confirmed by BAM BENTLEY, HALEY ([id number]), metropolitan editor SALOMON ROSADO ([id number]) on 06/01/2022 11:31:49 AM Referred By: Leni Brock Confirmed By:HALEY KUHN MD
[2022-05-29 11:51] LABS: Color, Urine Yellow (Yellow); Glucose, Dipstick Normal (Normal); Ketone-Dipstick Negative (Negative); Leukocyte Esterase-Dipstick Negative /ul (Negative); Nitrite-Dipstick Negative (Negative); Occult Blood-Urine Negative /ul (Negative); Protein-Dipstick Negative (Negative); Urine Bilirubin Dipstick Negative (Negative); Urine Clarity Sl. Cloudy (Clear); Urine Urobilinogen Normal (Normal)
[2022-05-29 11:56] LABS: Hematocrit 46.9 % (40-54); Hemoglobin 16.3 g/dL (13.0-16.5); Mean Corp Hgb Conc 34.8 g/dL (32-36); Mean Corpuscular Hgb 32.9 pg (27.0-32.0); Mean Corpuscular Volume 94.6 fL (80-94); Platelet Count 179 K/mm3 (150-450); RBC Distribution Width CV 13.9 % (11.6-14.6); RBC Distribution Width SD 48.5 fl (35.1-43.9); Red Blood Count 4.96 M/mm3 (4.6-6.2); White Blood Count 6.2 K/mm3 (4.4-11.0)
[2022-05-29 12:06] LABS: Partial Thromboplast Time 35.3 Seconds (24.1-36.2)
[2022-05-29 12:11] LABS: Anion Gap 6 (5-15); BUN 16 mg/dL (7-18); BUN/Creat Ratio 18.5 RATIO (10-20); Calcium,Total 9.1 mg/dL (8.5-10.1); Chloride 104 mmol/L (98-107); Creatinine, Serum 0.86 mg/dL (0.70-1.30); EST Glomerular Filtration Rate 96 mL/min (>60); Est Glom Filt Rate - Afr Amer 116 mL/min (>60); Glucose 102 mg/dL (74-106); Sodium Level 140 mmol/L (136-145)
== END | disposition home or self-care (01) ==
LOC: PSN 06:35
PROVIDERS: PCP Family Medicine; Referring Provider Physician Assistant; Visit Provider Physician Assistant
DX: Z01.818 Encounter for other preprocedural examination (principal); M54.9 Dorsalgia, unspecified; N39.0 Urinary tract infection, site not specified; M79.606 Pain in leg, unspecified; M79.609 Pain in unspecified limb
CPT/HCPCS: 36415; 80048; 81002; 85027; 85610; 85730; 87086; 93005

== ENCOUNTER → 2022-10-05 | Outpatient (CLI) | payer OTHER, MEDICARE, SELFPAY ==
--- NOTE | 2022-10-05 07:18 | US_ITS ---
STUDY: ABDOMINAL ULTRASOUND - RIGHT UPPER QUADRANT REASON FOR VISIT: Male, 61 years old ANNUAL SCREEN FOR HCC TECHNIQUE: Ultrasound evaluation of the right upper quadrant was performed with real-time and static kruegr-scale imaging. TECHNICAL QUALITY: Adequate. COMPARISON: Comparison is made with prior study dated 11/07/2020. FINDINGS: Liver: The liver measures 17.3 cm. There is increased echogenicity consistent with fatty infiltration. The bile ducts are within normal limits. There is hepatic color flow. The direction of portal flow is hepatopetal. There is no demonstrated mass lesion. Gallbladder: The patient is status post cholecystectomy. Common Bile Duct (C.B.D.): The common bile duct measures 5 mm. Pancreas: Normal size of the head, body and tail of the pancreas. There is normal echogenicity of the pancreas. There is no demonstrated pancreatic mass or cyst. Right Kidney: Normal size of the right kidney. The right kidney measures 11.8 cm x 6 x 6.4 cm. Normal renal cortex. The right cortex measures 1.5 cm. There is no demonstrated renal mass or cyst. There is no right hydronephrosis. US/Liver IMPRESSION: Fatty infiltration of the liver. The liver measures upper limits of normal. Electronically Signed: Reno Arreola MD at 13:20 EST ,
== END | disposition home or self-care (01) ==
LOC: US 07:15
PROVIDERS: PCP Family Medicine; Referring Provider Internal Medicine Hematology & Oncology; Visit Provider Internal Medicine Hematology & Oncology
DX: E83.119 Hemochromatosis, unspecified (principal)
CPT/HCPCS: 76705

== ENCOUNTER 2022-11-05 13:34 | Emergency (ER) | payer OTHER, MEDICARE, SELFPAY ==
[2022-11-05 13:35] VITALS: BP 141/108; PULSE 98; RESP 16; TEMP 36.6; O2SAT 97; BMI 28.5
[2022-11-05 14:27] LABS: Absolute Lymphocyte Count 1.54 X10^3/uL (0.83-4.51); Absolute Neutrophil Count 3.1 X10^3/uL (2.0-7.7); Basophil# 0.04 X10^3/uL; Basophil% 0.8 % (0-1); Eosinophil# 0.14 X10^3/uL; Eosinophils% 2.7 % (0-5); Hemoglobin 16.5 g/dL (13.0-16.5); Lymphocyte # 1.54 X10^3/ul (0.83-4.51); Lymphocyte % 29.5 % (19-41); Mean Corp Hgb Conc 33.7 g/dL (32-36); Mean Corpuscular Hgb 32.7 pg (27.0-32.0); Mean Corpuscular Volume 97.2 fL (80-94); Mean Platelet Vol. 10.2 fl (6.2-12.0); Monocyte# 0.36 X10^3/uL; Monocyte% 6.9 % (0-10); NRBC Flagged by Analyzer 0 % (0-5); Neutrophil # 3.13 X10^3/uL (2.7-7.7); Neutrophil % 59.9 % (47-70); POSITIVE COUNT YES; Platelet Count 136 K/mm3 (150-450); RBC Distribution Width CV 13.3 % (11.6-14.6); RBC Distribution Width SD 47.5 fl (35.1-43.9); Red Blood Count 5.04 M/mm3 (4.6-6.2); White Blood Count 5.2 K/mm3 (4.4-11.0)
[2022-11-05 14:33] LABS: Differential Indicated SCAN CRITERIA MET
[2022-11-05 14:36] LABS: Anion Gap 5 (5-15); BUN 14 mg/dL (7-18); Calcium,Total 9.1 mg/dL (8.5-10.1); Chloride 105 mmol/L (98-107); Creatinine, Serum 0.94 mg/dL (0.70-1.30); EST Glomerular Filtration Rate 88 mL/min (>60); Est Glom Filt Rate - Afr Amer 106 mL/min (>60); Estimated Creatinine Clearance 92.87 ml/min; Glucose 93 mg/dL (74-106); Potassium 4.5 mmol/L (3.5-5.1); Sodium Level 137 mmol/L (136-145)
[2022-11-05 15:08] LABS: Differential Comment SCANNED
--- NOTE | 2022-11-05 15:27 | CT_ITS ---
EXAM: CT ABDOMEN AND PELVIS WITH INTRAVENOUS CONTRAST CLINICAL INDICATION: abdominal pain TECHNIQUE: Helically acquired images were obtained of the abdomen and pelvis with intravenous contrast. This CT exam was performed using one or more of the following dose reduction techniques: automated exposure control, adjustment of the mA and/or kV according to patient size, and/or use of iterative reconstruction technique. This report was created using [employer] report generation technology. CONTRAST: IV 100mL Isovue-300 COMPARISON: CT Abdomen Pelvis dated 12/17/2020 FINDINGS: LOWER THORAX: Stable 5 mm right middle lobe pulmonary nodule. ABDOMEN: LIVER: Liver is mildly prominent in size without focal mass. GALLBLADDER AND BILE DUCTS: Gallbladder is absent. No intra- or extrahepatic biliary ductal dilation. PANCREAS: Normal. No focal cystic or solid mass. SPLEEN: Normal. Normal size without focal cystic or solid mass. ADRENALS: Normal. No nodules. KIDNEYS AND URETERS: Normal. Normal renal size and position. No hydronephrosis. STOMACH AND BOWEL: Mild stool burden within the large bowel. Diverticulosis of the colon noted without evidence of acute diverticulitis. PELVIS: APPENDIX: No evidence of acute appendicitis. BLADDER: Normal. REPRODUCTIVE: Unremarkable as visualized. No mass. ABDOMEN and PELVIS: INTRAPERITONEAL SPACE: Normal. No ascites or other fluid collection. No free air. BONES/JOINTS: No suspicious lytic or blastic abnormality. SOFT TISSUES: Right lower quadrant anterior abdominal wall surgical mesh in place consistent with hernia repair. VASCULATURE: Normal. Abdominal aorta is non-dilated. LYMPH NODES: Normal. No enlarged lymph nodes. CT/Abdomen/Pelvis W IV Cont ONLY IMPRESSION: 1. Stable 5 mm right middle lobe pulmonary nodule. 2. Mild hepatomegaly. 3. No acute abdominal or pelvic abnormality. 4. Diverticulosis coli. 5. Mild constipation. Electronically Signed: Ronny Gonzalez MD at 16:27 EST ,
--- NOTE | 2022-11-05 15:28 | EX.ED.DYSGE1 ---
HPI History of Present Illness Chief Complaint: Abd Pain Narrative Narrative: Patient presents with 2-day history of abdominal pain and some distention. A few weeks ago he was lifting something and heard a snap in his groin region and thought he had a hernia. He is presenting with abdominal pain, some nausea. He was seen by PCP and sent to the ED. He is denying fever or chills. The pain does not radiate to the back. He has no testicular plane or flank pain. No urinary symptoms. PFSH PFS Medical History Abdominal pain Bladder cancer Carpal tunnel syndrome on both sides Cirrhosis Depression Encounter for screening for malignant neoplasm of lung Glossopharyngeal neuralgia Hereditary hemochromatosis History of pulmonary embolus (PE) Hypercoagulable state Hypertension Insomnia Lupus Nausea Night sweats PORT PLACEMENT Tobacco use disorder, continuous Tobacco use disorder, continuous Unintentional weight loss Home Medications COVID-19 antigen test (COVID-19 At-Home Test kit) #4 ea 08/25/22 [Rx Last Taken Unknown] albuterol sulfate 90 mcg/actuation aerosol inhaler 1 - 2 puff inhalation Q6H PRN shortness of breath or wheezing #8.5 grams 08/25/22 [Rx Last Taken Unknown] ziconotide 100 mcg/mL intrathecal solution (Prialt) 100 mcg continuous intrathecal infusion DAILY pain 08/25/22 [History Last Taken 11/05/22] polyethylene glycol 3350 17 gram/dose oral powder (Miralax) 17 g PO BID #119 grams 11/05/22 [Rx Last Taken Unknown] trazodone 100 mg tablet 200 mg PO QHS PRN Sleep 11/05/22 [History Last Taken 11/04/22] Allergy/AdvReac Type Severity Reaction Status Date / Time lorazepam [From Ativan] Allergy Severe Other Verified 11/05/22 13:37 cephalexin [From Keflex] AdvReac Severe Nausea/Vom/ Verified 11/05/22 13:37 Diarrhea fluoxetine HCl [From Prozac] AdvReac Severe Vomiting Verified 11/05/22 13:37 morphine AdvReac Severe Rash Verified 11/05/22 13:37 oxycodone AdvReac Severe Hives Verified 11/05/22 13:37 pregabalin [From Lyrica] AdvReac Severe hypotension Verified 11/05/22 13:37 duloxetine [From Cymbalta] AdvReac NEEDS Verified 11/05/22 13:37 FOLLOW-UP Family History Father Prostate cancer Heart disease Grandfather Diabetes Grandmother Diabetes Mother Hypertension Heart disease Sister Hypertension Sisters x2 Surgical History History of appendectomy History of carpal tunnel surgery of left wrist History of carpal tunnel surgery of right wrist History of cholecystectomy History of deviated nasal septum History of spinal fusion Social History Smoking Status: Current every day smoker tobacco type: cigarettes Tobacco: How many years used: 42 Smokeless tobacco user: other Electronic Cigarette Use: not used second hand exposure: Yes quit status: not considering quitting counseling given: provider counseling alcohol intake: never substance use type: does not use what type of physical activity do you participate in: none seatbelt use: always do you feel safe at home: Yes ROS ROS ED ROS Narrative Past medical history: Reviewed Medications: Reviewed Social history: Noncontributory Review of systems: All systems negative except as indicated General: No fever ENT: No upper airway congestion, normal voice Neck: No neck pain Cardiovascular: No chest pain Respiratory: No shortness of breath or cough Gastrointestinal: As in HPI Genitourinary: No dysuria Musculoskeletal: Denies myalgias no difficulty with ambulation Skin: No rash Neurological: No memory loss, confusion or any focal weakness Hematologic: No easy bleeding or easy bruising EXAM Physical Exam Narrative Exam Narrative: Physical exam General: Patient appears uncomfortable Head: Normocephalic, Atraumatic Eyes: Conjunctiva not pale ENT: Moist mucous membranes Neck: Supple, Nontender, No lymphadenopathy Cardiovascular: Regular rate, Regular rhythm Respiratory: No distress, CTA bilaterally Abdomen: Soft, abdomen is distended, there are bowel sounds but they are quite diminished. The pain is throughout. : No testicular tenderness. I cannot appreciate any inguinal hernia on either side. Back: Nontender, Normal Inspection. Negative for: CVA tenderness Extremities: Nontender, No edema Skin: Normal color, No rash Neurological: Alert, Normal Strength, Normal Sensation Const Vital Signs: 11/05/22 13:35 Temperature 98 F Temperature Source Temporal Pulse Rate 98 Respiratory Rate 16 Blood Pressure 141/108 H Blood Pressure Mean 119 Pulse Ox 97 Oxygen Delivery Method Room Air MDM MDM Lab Data Labs: Laboratory Results - last 24 hr 11/05/22 11/05/22 11/05/22 14:10 14:10 15:50 WBC 5.2 6.0 RBC 5.04 4.85 Hgb 16.5 15.3 Hct 49.0 45.3 MCV 97.2 H 93.4 MCH 32.7 H 31.5 MCHC 33.7 33.8 RDW Std Deviation 47.5 H 44.7 H RDW Coeff of Marlene 13.3 13.2 Plt Count 136 L 183 MPV 10.2 9.3 Immature Gran % (Auto) 0.200 0.200 Neut % (Auto) 59.9 58.9 Lymph % (Auto) 29.5 30.0 Swain % (Auto) 6.9 7.9 Eos % (Auto) 2.7 2.3 Baso % (Auto) 0.8 0.7 Absolute Neuts (auto) 3.1 3.5 Absolute Lymphs (auto) 1.54 1.79 Nucleated RBC % 0 0 Differential Comment SCANNED Sodium 137 Potassium 4.5 Chloride 105 Carbon Dioxide 27.0 Anion Gap 5 BUN 14 Creatinine 0.94 Estim Creat Clear Calc 92.87 Est GFR (MDRD) Af Amer 106 Est GFR (MDRD) Non-Af 88 BUN/Creatinine Ratio 15.0 Glucose 93 Lactic Acid Calcium 9.1 Total Bilirubin Direct Bilirubin AST ALT Alkaline Phosphatase Total Protein Albumin Globulin Albumin/Globulin Ratio Urine Color Urine Clarity Urine pH Ur Specific [place] Urine Protein Urine Glucose (UA) Urine Ketones Urine Occult Blood Urine Nitrite Urine Bilirubin Urine Urobilinogen Ur Leukocyte Esterase Urine RBC Urine WBC Ur Squamous Epith Cells Urine Bacteria Urine Mucus 11/05/22 11/05/22 11/05/22 15:50 15:50 16:00 WBC RBC Hgb Hct MCV MCH MCHC RDW Std Deviation RDW Coeff of Marlene Plt Count MPV Immature Gran % (Auto) Neut % (Auto) Lymph % (Auto) Swain % (Auto) Eos % (Auto) Baso % (Auto) Absolute Neuts (auto) Absolute Lymphs (auto) Nucleated RBC % Differential Comment Sodium 141 Potassium 4.4 Chloride 107 Carbon Dioxide 30.0 Anion Gap 4 L BUN 13 Creatinine 0.87 Estim Creat Clear Calc 100.34 Est GFR (MDRD) Af Amer 115 Est GFR (MDRD) Non-Af 95 BUN/Creatinine Ratio 14.9 Glucose 91 Lactic Acid 0.6 Calcium 9.0 Total Bilirubin 0.50 Direct Bilirubin 0.11 AST 14 L ALT 20 Alkaline Phosphatase 87 Total Protein 6.9 Albumin 3.7 Globulin 3.2 Albumin/Globulin Ratio 1.2 Urine Color Yellow Urine Clarity Clear Urine pH 7.0 Ur Specific [place] 1.005 Urine Protein Negative Urine Glucose (UA) Normal Urine Ketones Negative Urine Occult Blood 10 H Urine Nitrite Negative Urine Bilirubin Negative Urine Urobilinogen Normal Ur Leukocyte Esterase Negative Urine RBC 0-5 SEEN Urine WBC 0 SEEN Ur Squamous Epith Cells 0-5 SEEN Urine Bacteria 0 SEEN Urine Mucus 0 SEEN Radiography Diagnostic Testing: Clinical Impression(s) from Imaging Studies Abdomen/Pelvis CT 11/05/22 15:27 IMPRESSION: 1. Stable 5 mm right middle lobe pulmonary nodule. 2. Mild hepatomegaly. 3. No acute abdominal or pelvic abnormality. 4. Diverticulosis coli. 5. Mild constipation. Electronically Signed: Ronny Gonzalez MD at 16:27 EST , Treatment and Re-Evaluation Narrative: A. Problems addressed Patient has abdominal pain, was worried about possible obstruction however this is not found on CT, was worried colitis, however this was not found, was worried about pancreatitis and this was not found on CT. He has chronic pain I did give him analgesia in the ED. Otherwise he is found to have some constipation which I will treat otherwise I believe he can be safely discharged. B. Amount and/or complexity of the data CBC CMP and lipase were interpreted by me I discussed the patient with who was in the room. C. Risk of complications and/or morbidity See above Discharge Plan Triage Chief Complaint: Abd Pain ED Provider: Jeremy Bush Dx/Rx/DC Orders Clinical Impression: Abdominal pain, Chronic back pain, Constipation Instructions: Abdominal Pain Prescriptions: New polyethylene glycol 3350 [Miralax] 17 gram/dose powder 17 g PO BID Qty: 119 0RF No Action Prialt 100 mcg/mL solution 100 mcg continuous intrathecal infusion DAILY albuterol sulfate 90 mcg/actuation HFA aerosol inhaler 1 - 2 puff inhalation Q6H PRN (Reason: shortness of breath or wheezing) Qty: 8.5 1RF (DME) COVID-19 At-Home Test Kit See Rx Instructions .Route Qty: 4 0RF Rx Instructions: As directed for COVID symptoms trazodone 100 mg tablet 200 mg PO QHS PRN (Reason: Sleep) Primary Care Provider: Aleksandr Duarte Referrals: Aleksandr Duarte, DO [Primary Care Provider] - 3-5 Days Disposition Disposition: Home, Self Care
[2022-11-05] MEDS: Ondansetron 4 MG/2 ML Vial IV (15:54)
[2022-11-05] MEDS: HYDROmorphone 1 MG/ML Syringe IV (15:54)
[2022-11-05 15:59] LABS: Absolute Lymphocyte Count 1.79 X10^3/uL (0.83-4.51); Absolute Neutrophil Count 3.5 X10^3/uL (2.0-7.7); Basophil# 0.04 X10^3/uL; Basophil% 0.7 % (0-1); Eosinophil# 0.14 X10^3/uL; Eosinophils% 2.3 % (0-5); Hematocrit 45.3 % (40-54); Hemoglobin 15.3 g/dL (13.0-16.5); Lymphocyte # 1.79 X10^3/ul (0.83-4.51); Mean Corp Hgb Conc 33.8 g/dL (32-36); Mean Corpuscular Hgb 31.5 pg (27.0-32.0); Mean Corpuscular Volume 93.4 fL (80-94); Mean Platelet Vol. 9.3 fl (6.2-12.0); Monocyte# 0.47 X10^3/uL; Monocyte% 7.9 % (0-10); NRBC Flagged by Analyzer 0 % (0-5); Neutrophil # 3.52 X10^3/uL (2.7-7.7); Neutrophil % 58.9 % (47-70); Platelet Count 183 K/mm3 (150-450); RBC Distribution Width CV 13.2 % (11.6-14.6); RBC Distribution Width SD 44.7 fl (35.1-43.9); Red Blood Count 4.85 M/mm3 (4.6-6.2)
[2022-11-05 16:09] LABS: Bacteria 0 SEEN /hpf (None Seen); Mucous, Urine 0 SEEN /hpf (<or=2+); White Blood Cells 0 SEEN /hpf (0-5)
[2022-11-05 16:12] LABS: Color, Urine Yellow (Yellow); Glucose, Dipstick Normal (Normal); Ketone-Dipstick Negative (Negative); Leukocyte Esterase-Dipstick Negative /ul (Negative); Nitrite-Dipstick Negative (Negative); Occult Blood-Urine 10 /ul (Negative); Protein-Dipstick Negative (Negative); Specific Gravity, Urine 1.005 (1.002-1.030); Urine Bilirubin Dipstick Negative (Negative); Urine Clarity Clear (Clear); Urine Urobilinogen Normal (Normal)
[2022-11-05 16:14] LABS: ALB/GLOB Ratio 1.2 RATIO (0.9-2.4); AST(SGOT) 14 U/L (15-37); Alanine Aminotransfer ALT/SGPT 20 U/L (16-61); Albumin, Serum 3.7 g/dL (3.2-5.0); Alkaline Phosphatase 87 U/L (45-117); Anion Gap 4 (5-15); BUN 13 mg/dL (7-18); BUN/Creat Ratio 14.9 RATIO (10-20); Bilirubin, Direct 0.11 mg/dL (0.00-0.30); Chloride 107 mmol/L (98-107); Creatinine, Serum 0.87 mg/dL (0.70-1.30); EST Glomerular Filtration Rate 95 mL/min (>60); Est Glom Filt Rate - Afr Amer 115 mL/min (>60); Estimated Creatinine Clearance 100.34 ml/min; Globulin 3.2 g/dL (2.2-4.2); Glucose 91 mg/dL (74-106); Potassium 4.4 mmol/L (3.5-5.1); Protein, Total 6.9 g/dL (6.4-8.2); Sodium Level 141 mmol/L (136-145)
[2022-11-05 16:18] LABS: Red Blood Cells-Urine 0-5 SEEN /hpf (0-5); Squamous Epithelial Cells - UA 0-5 SEEN /hpf (0-5)
[2022-11-05 16:25] LABS: Lactic Acid 0.6 mmol/L (0.4-1.9)
[2022-11-05 18:00] VITALS: BP 140/78; PULSE 78; RESP 16; O2SAT 99
== END 2022-11-05 18:01 | disposition home or self-care (01) ==
PROVIDERS: Emergency Provider Emergency Medicine; PCP Family Medicine; Visit Provider Emergency Medicine
DX: R10.9 Unspecified abdominal pain (principal); M54.9 Dorsalgia, unspecified; K59.00 Constipation, unspecified; G89.29 Other chronic pain; F17.210 Nicotine dependence, cigarettes, uncomplicated; Z86.711 Personal history of pulmonary embolism; Z79.899 Other long term (current) drug therapy
CPT/HCPCS: 74177; 80048; 80053; 80076; 81001; 82248; 83605; 85025; 96374; 96375; 99283; J7030; Q9967; A4216; J2405

== ENCOUNTER → 2023-10-19 | Outpatient (CLI) | payer OTHER, MEDICARE, SELFPAY ==
--- NOTE | 2023-10-19 10:29 | US_ITS ---
INDICATION: hepatocellular ca screening;hemochromatosis EXAMINATION: Ultrasound US Abdomen RUQ (limited) TECHNIQUE: Irvin-scale and color Doppler imaging was performed of the abdomen. COMPARISON: FINDINGS: LIVER: There is normal echotexture measuring 18.3 cm. No focal hepatic lesion. No intrahepatic biliary ductal dilatation. There is no free fluid. GALLBLADDER AND BILIARY TREE: Status post cholecystectomy. The proximal common bile duct measures 5 mm, which is within normal limits for the patient''s age. PANCREAS: No focal abnormality is demonstrated in the pancreas. No pancreatic ductal dilatation. SPLEEN: The spleen is normal in size and homogeneous in echotexture. RIGHT KIDNEY: 11.2 x 6.1 x 5.6 cm. The cortex is 16mm. There is no hydronephrosis. No shadowing calculus, focal lesion, or perinephric collection is demonstrated. VESSELS: Submitted longitudinal images of the intra-abdominal aorta demonstrate no gross abnormalities and are unremarkable. The IVC is patent. US/Liver IMPRESSION: No acute sonographic abnormality is demonstrated in the abdomen. Electronically Signed: Dante Ny DO at 16:51 EST Reading Location ID and State: [facility] / [place] Tel [phone], Service support ,
== END | disposition home or self-care (01) ==
LOC: US 10:26
PROVIDERS: PCP Family Medicine; Referring Provider Nurse Practitioner Family; Visit Provider Nurse Practitioner Family
DX: E83.110 Hereditary hemochromatosis (principal)
CPT/HCPCS: 76705

== ENCOUNTER → 2024-01-20 | Outpatient (CLI) | payer OTHER, MEDICARE, SELFPAY ==
[2024-01-20 10:58] LABS: PSA,Total - Annual Screen 0.24 ng/mL (0.00-4.00)
[2024-01-20 12:33] LABS: Cytology, Body Fluid / CSF SEE PATHOLOGY REPORT
--- NOTE | 2024-01-21 09:00 | CYSPIN_PTH ---
PATIENT: YONATHAN HERNANDEZ Jr. LOC: [facility] U#:[id number] AGE/SX: 63/M ROOM: RE01/20/[address]: Lakia Thomas : 1960 BED: DIS: 01/20/2024 SPEC #: [id number] RECD: 01/21/24 10:01 STATUS: SEAN JAK #: [id number] SUZANNE: 01/21/24 09:[address]: Lakia Thomas DEPT: CYTOLOGY RECD BY: Donya Bennett ENTERED: 01/21/24 10:02 SP TYPE: CYSPIN FL OTHR DR: Dr. Aleksandr Duarte, DO Dr. Jose Mckeon MD Tissues: Urine Procedures: Pap Stain (control) Special Stain Group II Cytospin Fluid HEADER OPERATION: Not noted PRE-OP DIAGNOSIS: Gross hematuria TISSUE SUBMITTED: Urine for cytology DIAGNOSIS CYTOLOGY Urine for cytology (cytospin): Suspicious for high grade urothelial carcinoma (Di Category System IV). See comment. AM/mr 01/21/24 COMMENT The Id System for urine cytology diagnostic categorization was used in the evaluation of this case. CYTOLOGY STUDY Slides are reviewed. CYTOLOGY GROSS Received is 40 ml of gold cloudy fluid labeled with the patient's name and and designated per the requisition as urine. Submitted for cytology preparation. Mr 01/21/24 TC:0 CPT: 99348
== END | disposition home or self-care (01) ==
PROVIDERS: PCP Family Medicine; Referring Provider Urology; Visit Provider Nurse Practitioner
DX: Z12.5 Encounter for screening for malignant neoplasm of prostate (principal); R31.0 Gross hematuria
CPT/HCPCS: 36415; 84153; 88108; 88313; G0103

== ENCOUNTER → 2024-02-01 | Outpatient (CLI) | payer OTHER, MEDICARE, SELFPAY ==
--- NOTE | 2024-02-01 16:11 | CT_ITS ---
STUDY: CT ABDOMEN AND PELVIS WITH AND WITHOUT CONTRAST REASON FOR EXAM: Male, 63 years old. HX BLADDER CA/GROSS HEMATURIA RADIATION DOSAGE (If Supplied By Facility): CTDIvol = ( 30.84 ) mGy, DLP = ( 1446.06 ) mGycm TECHNIQUE: Transaxial images were obtained from the dome of the diaphragm to the symphysis pubis without oral contrast. IV 100mL Isovue-370 was administered. Sagittal and coronal images were reconstructed. Individualized dose optimization techniques were used for this CT. COMPARISON: Comparison is made with prior study November 05, 2022. FINDINGS: The visualized lung bases are unremarkable. The visualized portions of the heart are within normal limits. Normal liver. The patient is status post cholecystectomy. Normal spleen. Normal pancreas. Normal bilateral adrenal glands. Normal right kidney. Normal left kidney. Large amount of residual food particles seen in the stomach. Normal small intestine. There are scattered colonic diverticula consistent with diverticulosis. The appendix is visualized and appears normal. There is scattered atherosclerotic calcification of the abdominal aorta, without a demonstrated aneurysm. Normal inferior vena cava. Normal retroperitoneum. There is a 3.3 cm x 1.2 cm polypoid mass in the right side of the base of the bladder. There is evidence of prior right inguinal hernia repair with mesh. A battery pack from a spinal cord similar device is seen overlying the left gluteal region. There are mild degenerative changes of the visualized lumbar spine. There is straightening of the normal lumbar lordosis. CT/CT Abd/Pelvis W/WO Contrast IMPRESSION: 3.3 cm x 1.2 cm polypoid mass in the base of the bladder on the right side. Prior right inguinal hernia repair with mesh. Status post cholecystectomy. Sigmoid diverticulosis. Electronically Signed: Reno Arreola MD at 14:21 EDT ,
[2024-02-01 16:47] LABS: CREATININE FINGERSTICK 1.1 mg/dL (0.70-1.30); EGFR FINGERSTICK > 60.0000 mL/min (>60)
== END | disposition home or self-care (01) ==
LOC: CT 16:10
PROVIDERS: PCP Family Medicine; Referring Provider Urology; Visit Provider Urology
DX: R31.0 Gross hematuria (principal); Z85.51 Personal history of malignant neoplasm of bladder
CPT/HCPCS: 74178; Q9967

== ENCOUNTER 2024-02-25 08:56 | Day surgery (SDC) | payer OTHER, MEDICARE, SELFPAY ==
--- NOTE | 2024-02-15 09:18 | EKG12_ITS ---
Test Reason : PREOP Blood Pressure : / mmHG Vent. Rate : 071 BPM Atrial Rate : 071 BPM P-R Int : 166 ms QRS Dur : 092 ms QT Int : 384 ms P-R-T Axes : 082 052 044 degrees QTc Int : 417 ms Normal sinus rhythm Normal ECG Confirmed by OMAR BENTLEY, SLIM ([id number]), editor producer SALOMON ROSADO ([id number]) on 02/17/2024 6:23:02 AM Referred By: Jose Mckeon Confirmed By:AMALIA NELSON MD
[2024-02-25] VITALS (8 sets, daily range): BP systolic 133–153; BP diastolic 85–100; PULSE 57–76; RESP 16; TEMP 36.3; O2SAT 93–96; BMI 28.4
--- NOTE | 2024-02-25 | IMM_PTH ---
PATIENT: YONATHAN HERNANDEZ Jr. [place] [facility] U#:[id number] AGE/SX: 63/M ROOM: RE02/25/[address]: Dr. Jose Mckeon MD : 1960 BED: DIS: 02/25/2024 SPEC #: [id number] RECD: 02/29/24 13:46 STATUS: SOUT REQ #: [id number] SUZANNE: 02/25/24 00:[address]: Jose Mckeon DEPT: IMMUNOHISTOCHEMISTRY RECD BY: Bennie Starkey ENTERED: 02/29/24 13:47 SP TYPE: IMMUNO OTHR DR: Dr. Aleksandr Duarte, DO Tissues: Urinary bladder, NOS Procedures: CD31 (add) Factor VIII (initial) PHYSICIAN & INSTITUTION [place] [id number] SPECIMEN INFORMATION: Tissue Source: Bladder tumor Clinical Info: Gross hematuria, malignant neoplasm of lateral wall of bladder Specimen Number: [id number] CPT code: 88355,8834x7 METHODOLOGY: Deparaffinized sections of prefer/formalin-fixed tissue or PAP/DQ stained slides are incubated with monoclonal/polyclonal antibodies/oligonucleotide probes. Localization is made via biotin free immunoperoxidase method. Appropriate controls are performed and reacted as expected. Results on target cell population are indicated in the following table: RESULTS: ANTIBODY / CLONE RESULT Block 2 Factor VIII (R Ag) positive CD31 (MARY/70A) positive Block 3 Factor VIII (R Ag) positive CD31 (MARY/70A) positive Block 5 Factor VIII (R Ag) positive CD31 (MARY/70A) positive Block 6 Factor VIII (R Ag) positive CD31 (MARY/70A) positive These tests were developed and their performance characteristics determined by [facility]. They may not have been cleared or approved by the U.S. Food and Drug Administration. The FDA has determined that such clearance or approval is not necessary. The above immunohistochemical/dualISH markers are ordered and reviewed by the Pathologist. INTERPRETATION: Urinary bladder tumor, transurethral resection: Urothelial carcinoma with focal angiolymphatic invasion. COMMENT: Case has been reviewed in consultation with Dr. Murrell who concurs with the above diagnosis. IDC:ARFAELA PARKER/ 03/01/2024
--- NOTE | 2024-02-25 09:20 | PCM.PRE.AN2 ---
ASA Classification* ASA Classification ASA Classification: 1 Assessment & Plan Anesthesia* History Source History Obtained from:: Patient and Chart Anesthesia Assessment Anesthesia Assessment: Discussed sedation and/or anesthesia options, risks, benefits, and alternatives with patient/parents/legal guardian. Questions invited. The patient/parents/legal guardian/POA seems to understand and agrees to proceed with anesthesia plan. Reviewed the physical assessment, medical history, allergy history and patient home medications list prior to surgery/procedure/anesthetic and documented any changes. Performed airway and anesthesia risk assessments. Procedural Plan (POC = Plan of care) Procedural Plan:: Proceed w/ POC Anesthesia Type Anesthesia Type: Epidural Pre-Assessment Diagnosis/Proposed Procedure Planned Operative Procedure(s): Cysto,Transurethra Resec BladderTum MitC Anesthesia History Anesthesia History - binder chainstitch: Anesthesia History - binder chainstitch Hx Hospitalization No 02/09/24 09:35 Any Problems With Anesthesia No 02/09/24 09:35 Cholinesterase deficiency No 02/09/24 09:35 You/Your Family Experience No 02/09/24 09:35 fever (hyperthermia) with Relationship Recent Exposure to Contagious No 09/30/22 14:33 Disease Does patient have nerve No 02/09/24 09:35 stimulator Patient instructed to have device shut off --Does patient have Pacemaker or ICD? When Was Last Pacemaker Check QUESTION #4 FULL TEXT: You/Your Family Experience fever (hyperthermia) with Anesthesia Last Oral Intake Last Oral intake: Last Oral Intake NPO since Meds taken in AM with sips of water? Meds patient instructed to take am of surgery PONV PONV - binder chainstitch: PONV - binder chainstitch Female No 02/09/24 09:35 HX of Motion Sickness No 02/09/24 09:35 HX of N/V After Surgery No 02/09/24 09:35 Non-Smoker No 02/09/24 09:35 Duration of Surgery greater Yes 02/09/24 09:35 than 60 minutes Number of Risk Factors 1 02/09/24 09:35 PONV Score Low Risk 02/09/24 09:35 Height & Weight Height & Weight: Anesthesia: Height & Weight Height 1.83 m 10/28/23 15:20 Respiratory Assessment Respiratory Assessment - binder chainstitch: Respiratory Tract Infection Hx - binder chainstitch Hx Respiratory Tract Infection No 02/09/24 09:35 STOP Sleep Apnea STOP Sleep Apnea - binder chainstitch: STOP Sleep Apnea - binder chainstitch Hx Hypertension No 02/09/24 09:35 Hx Sleep Apnea No 02/09/24 09:35 CPAP No 02/09/24 09:35 BIPAP No 02/09/24 09:35 Do you snore loudly (louder No 02/09/24 09:35 than talking or can be heard Do you often feel tired/ No 02/09/24 09:35 fatigued/ sleepy during daytime? Has anyone observed you stop No 02/09/24 09:35 breathing during sleep? STOP Results Negative 02/09/24 09:35 QUESTION #5 FULL TEXT : Do you snore loudly (louder than talking or can be heard through closed doors)? Tobacco Use History Tobacco Use History - binder chainstitch: Tobacco Use History - binder chainstitch Tobacco Use Cigarettes 09/30/22 14:33 Smoking Status Current every day smoker 02/09/24 09:35 Hx Tobacco Use Yes 02/09/24 09:35 Years Smoking Packs Smoked per Day Smoking Cessation Date was within the last 15 years Hx Smoking Cessation Date Hx Smoking Cessation Yes 02/09/24 09:35 Counseling Hematologic Medial History Hematologic Hx - binder chainstitch: Hematologic Medical Hx - inhalation therapist Hx of Blood Transfusion No 02/09/24 09:35 Hx of Transfusion in last 3 No 02/09/24 09:35 Months Date of Last Transfusion (if within last 3 months) Ever experience any problems No 02/09/24 09:35 with transfusion(s)? Specify any problems Hx of Preganancy in last 3 N/A 02/09/24 09:35 Months Nurse Filling Out Transfusion VCHRISTIN 02/09/24 09:35 & Questions: Date: 02/09/24 02/09/24 09:35 Time: 09:37 02/09/24 09:35 Patient unable to answer at this time (ie. confused, unrespo /Reproduction History /Reproductive History - binder chainstitch: /Reproductive Hx- binder chainstitch Hx Now Gestational Age (in weeks): EDC: Hx Hx Para Hx Section SAB Active Medications Active Medications: Current Medications Generic Name Dose Route Start Last Admin Trade Name Freq PRN Reason Stop Dose Admin Cefazolin Sodium 2 gm/ Sodium 110 mls @ 150 mls/hr 02/25/24 11:30 Chloride IV 02/25/24 12:13 PREOP ONE Mitomycin 40 mg/ N/A 40 mls @ 2,400 mls/hr 02/25/24 11:30 INSTILLAT 02/25/24 11:31 X1 ONE Lactated Ringer's 1,000 mls @ 15 mls/hr 02/25/24 09:15 IV .Q48H [facility] Anesthesia Focused Assessment* Temperature: 1 F Pulse Rate: 1 Blood Pressure: 1/1 Respiratory Rate: 1 Pulse Ox: 1 Oxygen Delivery Method: Room Air Airway Assessment Mouth opens (cm): 3 Mallampati Score: II Teeth Condition: Intact Neck Range of motion (ROM): Full ROM Focused Labs Anesthesia Preop lab: CBC WBC 4.9 K/mm3 (4.4-11.0) 10/28/23 14:55 RBC 4.68 M/mm3 (4.6-6.2) 10/28/23 14:55 Hgb 14.6 g/dL (13.0-16.5) 10/28/23 14:55 Hct 41.4 % (40-54) 10/28/23 14:55 Plt Count 194 K/mm3 (150-450) 10/28/23 14:55 CHEMISTRY Potassium 3.6 mmol/L (3.5-5.1) 10/28/23 14:55 Sodium 141 mmol/L (136-145) 10/28/23 14:55 BUN 17 mg/dL (7-18) 10/28/23 14:55 Creatinine 0.69 mg/dL (0.70-1.30) L 10/28/23 14:55 Glucose 97 mg/dL (74-106) 10/28/23 14:55 TSH 0.87 uIU/mL (0.358-3.74) 08/29/21 14:26 COAG PT 13.0 SECONDS (11.7-14.9) 05/29/22 08:58 Review of Systems (Anesthesia) ROS Narrative System reviewed and no additional complaints, except as documented. [facility] Medical History (Updated 02/09/24 @ 09:34 by Amie Nava) Wears dentures Wears glasses Cancer Kidney stones Pulmonary embolism Migraine headache Injury of head and neck History of IBS COPD (chronic obstructive pulmonary disease) History of rheumatic fever Tobacco use disorder, continuous Encounter for screening for malignant neoplasm of lung Night sweats Unintentional weight loss Insomnia Tobacco use disorder, continuous Glossopharyngeal neuralgia Nausea Abdominal pain Depression Hypertension Carpal tunnel syndrome on both sides Lupus Bladder cancer Hypercoagulable state Hereditary hemochromatosis PORT PLACEMENT History of pulmonary embolus (PE) Cirrhosis Home Medications ?Medication ?Instructions ?Recorded ?Last Taken ?Type COVID-19 antigen test (COVID-19 #4 ea 08/25/22 Unknown Rx At-Home Test kit) ziconotide 100 mcg/mL intrathecal 100 mcg continuous intrathecal 08/25/22 11/05/22 History solution (Prialt) infusion DAILY pain trazodone 100 mg tablet See Rx Instructions .Route 02/02/23 Unknown Rx .COMPLEX #180 TABLETS Allergy/AdvReac Type Severity Reaction Status Date / Time lorazepam (From Ativan) Allergy Severe Other Verified 02/09/24 09:23 cephalexin (From Keflex) AdvReac Severe Nausea/Vom/ Verified 02/09/24 09:23 Diarrhea fluoxetine HCl (From Prozac) AdvReac Severe Vomiting Verified 02/09/24 09:23 morphine AdvReac Severe Rash Verified 02/09/24 09:23 oxycodone AdvReac Severe Hives Verified 02/09/24 09:23 pregabalin (From Lyrica) AdvReac Severe hypotension Verified 02/09/24 09:23 duloxetine (From Cymbalta) AdvReac NEEDS Verified 10/28/23 15:25 FOLLOW-UP Family History Father Prostate cancer Heart disease Grandfather Diabetes Grandmother Diabetes Mother Hypertension Heart disease Sister Hypertension Sisters x2 Surgical History (Updated 02/09/24 @ 09:34 by Amie Nava) Hx of cystoscopy History of removal of Port-a-Cath History of carpal tunnel surgery of left wrist History of carpal tunnel surgery of right wrist History of spinal fusion History of cholecystectomy History of appendectomy History of deviated nasal septum Social History Smoking Status: Current every day smoker tobacco type: cigarettes Tobacco: How many years used: 42 Smokeless tobacco user: other Electronic Cigarette Use: not used second hand exposure: Yes quit status: not considering quitting alcohol intake: never substance use type: does not use what type of physical activity do you participate in: none seatbelt use: always do you feel safe at home: Yes
[2024-02-25] MEDS: Lactated Ringers 1,000 ML 15 ML IV ×2 (09:41→13:02)
[2024-02-25 09:46] LABS: Hematocrit 47.4 % (40-54); Hemoglobin 16.3 g/dL (13.0-16.5); Mean Corp Hgb Conc 34.4 g/dL (32-36); Mean Corpuscular Hgb 31.3 pg (27.0-32.0); Mean Corpuscular Volume 91.2 fL (80-94); Mean Platelet Vol. 9.9 fl (6.2-12.0); Platelet Count 186 K/mm3 (150-450); RBC Distribution Width CV 13.7 % (11.6-14.6); RBC Distribution Width SD 46.2 fl (35.1-43.9); White Blood Count 6.2 K/mm3 (4.4-11.0)
--- NOTE | 2024-02-25 10:53 | PRE.ANES_ITS ---
ASA Classification* ASA Classification ASA Classification: 2 Assessment & Plan Anesthesia* History Source History Obtained from:: Patient and Chart Anesthesia Assessment Anesthesia Assessment: Discussed sedation and/or anesthesia options, risks, benefits, and alternatives with patient/parents/legal guardian. Questions invited. The patient/parents/legal guardian/POA seems to understand and agrees to proceed with anesthesia plan. Reviewed the physical assessment, medical history, allergy history and patient home medications list prior to surgery/procedure/anesthetic and documented any changes. Performed airway and anesthesia risk assessments. 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 When Was Last Pacemaker Check QUESTION #4 FULL TEXT: You/Your Family Experience fever (hyperthermia) with Anesthesia Last Oral Intake Last Oral intake: Last Oral Intake NPO since 21:00 02/25/24 09:42 Meds taken in AM with sips of No 02/25/24 09:42 water? Meds patient instructed to take am of surgery PONV PONV - painter and body mechanic apprentice: PONV - painter and body mechanic apprentice Female No 02/09/24 09:35 HX of Motion Sickness No 02/09/24 09:35 HX of N/V After Surgery No 02/09/24 09:35 Non-Smoker No 02/09/24 09:35 Duration of Surgery greater Yes 02/09/24 09:35 than 60 minutes Number of Risk Factors 1 02/09/24 09:35 PONV Score Low Risk 02/09/24 09:35 Any additional information?: Yes Female: No HX of Motion Sickness: No HX of N/V After Surgery: Yes Non-Smoker: No Duration of Surgery greater than 60 minutes: Yes Number of Risk Factors: 2 PONV Score: Moderate Risk Height & Weight Height & Weight: Anesthesia: Height & Weight Height 1.83 m 02/25/24 09:42 Weight: 95.073 kg 02/25/24 09:42 Body Mass Index (BMI) 28.4 02/25/24 09:42 Respiratory Assessment Respiratory Assessment - painter and body mechanic apprentice: Respiratory Tract Infection Hx - painter and body mechanic apprentice Hx Respiratory Tract Infection No 02/09/24 09:35 STOP Sleep Apnea STOP Sleep Apnea - painter and body mechanic apprentice: STOP Sleep Apnea - painter and body mechanic apprentice Hx Hypertension No 02/09/24 09:35 Hx Sleep Apnea No 02/09/24 09:35 CPAP No 02/09/24 09:35 BIPAP No 02/09/24 09:35 Do you snore loudly (louder No 02/09/24 09:35 than talking or can be heard Do you often feel tired/ No 02/09/24 09:35 fatigued/ sleepy during daytime? Has anyone observed you stop No 02/09/24 09:35 breathing during sleep? STOP Results Negative 02/09/24 09:35 QUESTION #5 FULL TEXT : Do you snore loudly (louder than talking or can be heard through closed doors)? Tobacco Use History Tobacco Use History - painter and body mechanic apprentice: Tobacco Use History - painter and body mechanic apprentice Tobacco Use Cigarettes 09/30/22 14:33 Smoking Status Current every day smoker 02/09/24 09:35 Hx Tobacco Use Yes 02/09/24 09:35 Years Smoking Packs Smoked per Day Smoking Cessation Date was within the last 15 years Hx Smoking Cessation Date Hx Smoking Cessation Yes 02/09/24 09:35 Counseling Patient did smoke today Any additional information?: Yes Packs Smoked per Day: 0.5 Hematologic Medial History Hematologic Hx - painter and body mechanic apprentice: Hematologic Medical Hx - sharepoint specialist Hx of Blood Transfusion No 02/09/24 09:35 Hx of Transfusion in last 3 No 02/09/24 09:35 Months Date of Last Transfusion (if within last 3 months) Ever experience any problems No 02/09/24 09:35 with transfusion(s)? Specify any problems Hx of Preganancy in last 3 N/A 02/09/24 09:35 Months Nurse Filling Out Transfusion VCHRISTIN 02/09/24 09:35 & Questions: Date: 02/09/24 02/09/24 09:35 Time: 09:37 02/09/24 09:35 Patient unable to answer at this time (ie. confused, unrespo Patient does bleed easy No bruises visible On no blood thinners /Reproduction History /Reproductive History - painter and body mechanic apprentice: /Reproductive Hx- painter and body mechanic apprentice Hx Now Gestational Age (in weeks): EDC: Hx Hx Para Hx Section SAB Active Medications Active Medications: Current Medications Generic Name Dose Route Start Last Admin Trade Name Freq PRN Reason Stop Dose Admin Cefazolin Sodium 2 gm/ Sodium 110 mls @ 150 mls/hr 02/25/24 11:30 Chloride IV 02/25/24 12:13 PREOP ONE Mitomycin 40 mg/ N/A 40 mls @ 2,400 mls/hr 02/25/24 11:30 INSTILLAT 02/25/24 11:31 X1 ONE Lactated Ringer's 1,000 mls @ 15 mls/hr 02/25/24 09:15 02/25/24 09:41 IV 15 mls/hr .Q48H [facility] Administration Anesthesia Focused Assessment* Temperature: 97.3 F Pulse Rate: 57 Blood Pressure: 137/85 Respiratory Rate: 16 Pulse Ox: 96 Oxygen Delivery Method: Room Air Airway Assessment Mouth opens (cm): >3 Mallampati Score: II Teeth Condition: Dentures (Out) and Full Neck Range of motion (ROM): Limited ROM (Patient is post C3 through T1 fusion) Pertinent Findings EKG Pertinent Findings:: Normal sinus rhythm Focused Labs Anesthesia Preop lab: CBC WBC 6.2 K/mm3 (4.4-11.0) 02/25/24 08:35 RBC 5.20 M/mm3 (4.6-6.2) 02/25/24 08:35 Hgb 16.3 g/dL (13.0-16.5) 02/25/24 08:35 Hct 47.4 % (40-54) 02/25/24 08:35 Plt Count 186 K/mm3 (150-450) 02/25/24 08:35 CHEMISTRY Potassium 3.6 mmol/L (3.5-5.1) 10/28/23 14:55 Sodium 141 mmol/L (136-145) 10/28/23 14:55 BUN 17 mg/dL (7-18) 10/28/23 14:55 Creatinine 0.69 mg/dL (0.70-1.30) L 10/28/23 14:55 Glucose 97 mg/dL (74-106) 10/28/23 14:55 TSH 0.87 uIU/mL (0.358-3.74) 08/29/21 14:26 COAG PT 13.0 SECONDS (11.7-14.9) 05/29/22 08:58 Review of Systems (Anesthesia) ROS Narrative System reviewed and no additional complaints, except as documented. [facility] Medical History Wears dentures Wears glasses Cancer Kidney stones Pulmonary embolism Migraine headache Injury of head and neck History of IBS COPD (chronic obstructive pulmonary disease) History of rheumatic fever Tobacco use disorder, continuous Encounter for screening for malignant neoplasm of lung Night sweats Unintentional weight loss Insomnia Tobacco use disorder, continuous Glossopharyngeal neuralgia Nausea Abdominal pain Depression Hypertension Carpal tunnel syndrome on both sides Lupus Bladder cancer Hypercoagulable state Hereditary hemochromatosis PORT PLACEMENT History of pulmonary embolus (PE) Cirrhosis Home Medications ?Medication ?Instructions ?Recorded ?Last Taken ?Type COVID-19 antigen test (COVID-19 #4 ea 08/25/22 Unknown Rx At-Home Test kit) ziconotide 100 mcg/mL intrathecal 100 mcg continuous intrathecal 08/25/22 11/05/22 History solution (Prialt) infusion DAILY pain trazodone 100 mg tablet See Rx Instructions .Route 02/02/23 Unknown Rx .COMPLEX #180 TABLETS Allergy/AdvReac Type Severity Reaction Status Date / Time lorazepam (From Ativan) Allergy Severe Other Verified 02/25/24 09:38 cephalexin (From Keflex) AdvReac Severe Nausea/Vom/ Verified 02/25/24 09:38 Diarrhea fluoxetine HCl (From Prozac) AdvReac Severe Vomiting Verified 02/25/24 09:38 morphine AdvReac Severe Rash Verified 02/25/24 09:38 oxycodone AdvReac Severe Hives Verified 02/25/24 09:38 pregabalin (From Lyrica) AdvReac Severe hypotension Verified 02/25/24 09:38 duloxetine (From Cymbalta) AdvReac NEEDS Verified 02/25/24 09:38 FOLLOW-UP Family History Father Prostate cancer Heart disease Grandfather Diabetes Grandmother Diabetes Mother Hypertension Heart disease Sister Hypertension Sisters x2 Surgical History Hx of cystoscopy History of removal of Port-a-Cath History of carpal tunnel surgery of left wrist History of carpal tunnel surgery of right wrist History of spinal fusion History of cholecystectomy History of appendectomy History of deviated nasal septum Social History Smoking Status: Current every day smoker tobacco type: cigarettes Tobacco: How many years used: 42 Smokeless tobacco user: other Electronic Cigarette Use: not used second hand exposure: Yes quit status: not considering quitting alcohol intake: never substance use type: does not use what type of physical activity do you participate in: none seatbelt use: always do you feel safe at home: Yes
--- NOTE | 2024-02-25 11:10 | BLB_PTH ---
PATIENT: YONATHAN HERNANDEZ Jr. [place] [facility] [id number] AGE/SX: 63/M ROOM: RE02/25/[address]: Dr. Jose Mckeon MD : 1960 BED: DIS: 02/25/2024 SPEC #: [id number] RECD: 02/25/24 18:29 STATUS: SEAN RERosie #: [id number] SUZANNE: 02/25/24 11:[address]: Jose Mckeon DEPT: SURGICAL PATHOLOGY RECD BY: Donya Bennett ENTERED: 02/28/24 11:36 SP TYPE: TURB OTHR DR: Dr. Aleksandr Duarte, DO Tissues: Urinary bladder, NOS Procedures: Surgery Specimen Level V HEADER OPERATION: Cysto, transurethral resection bladder tumor PRE-OP DIAGNOSIS: Gross hematuria, malignant neoplasm of lateral wall of bladder TISSUE SUBMITTED: Bladder tumor MICROSCOPIC DIAGNOSIS Urinary bladder tumor, transurethral resection: Invasive urothelial carcinoma. See cancer synoptic report below. AM/ 02/29/2024 COMMENT BLADDER CANCER (TUR) SUMMARY Procedure: Transurethral resection of bladder tumor (TURBT) Tumor site: Not specified Histologic type: Papillary urothelial carcinoma, invasive Associated epithelial lesions: None identified Histologic grade: 3/3 (WHO high grade) Tumor configuration: Invasive with focal papillary features Muscularis propria presence: Infiltrated by carcinoma Lymphvascular invasion: Present. Tumor extension: Into muscularis propria Additional pathologic findings: Chronic inflammation PATHOLOGIC STAGE: T2 Nx Mx Case has been reviewed in consultation with Dr. Murrell who concurs with the above diagnosis. IDC:SJ Immunohistochemistry ([id number]) supports the above diagnosis. The above summary is in compliance with [employer] of [place] [employer] (CAP) Cancer Protocols Checklist and [place] Joint Committee on Cancer (AJCC), Staging Manual, 8th Ed. MICROSCOPIC DESCRIPTION Slides are reviewed. GROSS DESCRIPTION Received in fixative is one container labeled with the patient's name and designated Bladder tumor. The specimen consists of multiple fragments of seaman-brown soft tissue mixed with blood clot measuring in aggregate 3.5 x 3.0 x 1.5cm. The entire specimen is submitted in six cassettes. RAFAELA/ 02/28/2024 TC:[address] [facility]:[id number] ADDENDUM ADDENDUM ADDENDUM ADDENDUM ADDENDUM ADDENDUM ADDENDUM ADDENDUM ADDENDUM 05/17/2024 10:57 ADDENDUM 05/17/2024 10:57 ADDENDUM 05/17/2024 10:57 ADDENDUM 05/17/2024 10:57 ADDENDUM 05/17/2024 10:57 This addendum is added to incorporate an outside pathology consultation report. This case was seen at [facility] and a diagnosis of invasive urothelial carcinoma, high grade was identified. The complete report is viewable in the patient's EMR. Please see complete above mentioned consultation report in EMR
[2024-02-25] MEDS: Cefazolin 2 GM in 0.9% Normal Saline (100mL Bag) 100 ML IV (11:54)
--- NOTE | 2024-02-25 11:56 | PCM.HP.STD ---
HPI - General General Date of Service: 02/25/24 Chief Complaint: Recurrent bladder cancer HPI Narrative YONATHAN HERNANDEZ, is a 63 M who presents For transurethral section of the bladder for large bladder tumor recurrence has a history of bladder cancer lost to follow-up. [facility] Medical History Wears dentures Wears glasses Cancer Kidney stones Pulmonary embolism Migraine headache Injury of head and neck History of IBS COPD (chronic obstructive pulmonary disease) History of rheumatic fever Tobacco use disorder, continuous Encounter for screening for malignant neoplasm of lung Night sweats Unintentional weight loss Insomnia Tobacco use disorder, continuous Glossopharyngeal neuralgia Nausea Abdominal pain Depression Hypertension Carpal tunnel syndrome on both sides Lupus Bladder cancer Hypercoagulable state Hereditary hemochromatosis PORT PLACEMENT History of pulmonary embolus (PE) Cirrhosis Home Medications ?Medication ?Instructions ?Recorded ?Last Taken ?Type COVID-19 antigen test (COVID-19 #4 ea 08/25/22 Unknown Rx At-Home Test kit) ziconotide 100 mcg/mL intrathecal 100 mcg continuous intrathecal 08/25/22 11/05/22 History solution (Prialt) infusion DAILY pain trazodone 100 mg tablet See Rx Instructions .Route 02/02/23 Unknown Rx .COMPLEX #180 TABLETS ciprofloxacin HCl 500 mg tablet 500 mg PO BID #10 tabs 02/25/24 Unknown Rx (Cipro) ibuprofen 600 mg tablet 600 mg PO Q6H PRN fever or pain 02/25/24 Unknown Rx #20 tabs phenazopyridine 100 mg tablet 100 mg PO TID #20 tabs 02/25/24 Unknown Rx (Pyridium) tamsulosin 0.4 mg capsule (Flomax) 0.4 mg PO DAILY #90 caps 02/25/24 Unknown Rx Allergy/AdvReac Type Severity Reaction Status Date / Time lorazepam (From Ativan) Allergy Severe Other Verified 02/25/24 09:38 cephalexin (From Keflex) AdvReac Severe Nausea/Vom/ Verified 02/25/24 09:38 Diarrhea fluoxetine HCl (From Prozac) AdvReac Severe Vomiting Verified 02/25/24 09:38 morphine AdvReac Severe Rash Verified 02/25/24 09:38 oxycodone AdvReac Severe Hives Verified 02/25/24 09:38 pregabalin (From Lyrica) AdvReac Severe hypotension Verified 02/25/24 09:38 duloxetine (From Cymbalta) AdvReac NEEDS Verified 02/25/24 09:38 FOLLOW-UP Family History Father Prostate cancer Heart disease Grandfather Diabetes Grandmother Diabetes Mother Hypertension Heart disease Sister Hypertension Sisters x2 Surgical History Hx of cystoscopy History of removal of Port-a-Cath History of carpal tunnel surgery of left wrist History of carpal tunnel surgery of right wrist History of spinal fusion History of cholecystectomy History of appendectomy History of deviated nasal septum Social History Smoking Status: Current every day smoker tobacco type: cigarettes Tobacco: How many years used: 42 Smokeless tobacco user: other Electronic Cigarette Use: not used second hand exposure: Yes quit status: not considering quitting alcohol intake: never substance use type: does not use what type of physical activity do you participate in: none seatbelt use: always do you feel safe at home: Yes Vital Signs Vital Signs Vital Signs: 02/25/24 09:42 02/25/24 09:42 02/25/24 11:13 Temperature 97.3 F L 97.3 F L Temperature Source Temporal Pulse Rate 57 L 57 L Respiratory Rate 16 16 Respiratory Pattern Normal Blood Pressure 137/85 H 137/85 H Blood Pressure Mean 102 Blood Pressure Source Monitor Blood Pressure Position Semi-Fowlers Blood Pressure Location Left Arm Pulse Ox 96 96 Oxygen Delivery Method Room Air Room Air Weight Weight: 95.073 kg Body Mass Index (BMI) 28.4 Results Lab / Micro Data 02/25/24 08:35 Labs: Laboratory Results - last 24 hr 02/25/24 08:35: WBC 6.2, RBC 5.20, Hgb 16.3, Hct 47.4, MCV 91.2, MCH 31.3, MCHC 34.4, RDW Std Deviation 46.2 H, RDW Coeff of Marlene 13.7, Plt Count 186, MPV 9.9
--- NOTE | 2024-02-25 11:57 | PCM.DC ---
Discharge Instructions Diet Discharge Diet: No restrictions Activity Discharge Activity: Return to Normal Activity and May Not Drive (while taking narcotic pain medications.) Dressing / Incision Call your doctor if you observe: Fever of 101 or Higher Follow Up Care Please Follow Up With: Jose Mckeon MD When: Call [phone] for an appointment Test Results: Test results from this visit will be discussed in further detail at your follow-up appointment, if applicable. Discharge Plan Admission Primary Reason for Your Visit: turbt Attending Provider: Jose Mckeon Primary Care Provider: Aleksandr Duarte Instructions Print Language: Citizen Of [place] Discharge Orders/Prescriptions Prescriptions: New tamsulosin [Flomax] 0.4 mg capsule 0.4 mg PO DAILY Qty: 90 0RF phenazopyridine [Pyridium] 100 mg tablet 100 mg PO TID Qty: 20 0RF ciprofloxacin HCl [Cipro] 500 mg tablet 500 mg PO BID Qty: 10 0RF ibuprofen 600 mg tablet 600 mg PO Q6H PRN (Reason: fever or pain) Qty: 20 0RF Continued Prialt 100 mcg/mL solution 100 mcg continuous intrathecal infusion DAILY (DME) COVID-19 At-Home Test Kit See Rx Instructions .Route Qty: 4 0RF Rx Instructions: As directed for COVID symptoms trazodone 100 mg tablet See Rx Instructions .ROUTE .COMPLEX Qty: 180 1RF Dose Instruction: TAKE 2 TABLETS BY MOUTH AT BEDTIME NEEDED FOR SLEEP Rx Instructions: TAKE 2 TABLETS BY MOUTH AT BEDTIME NEEDED FOR SLEEP Referrals / Follow Up: Aleksandr Duarte, DO [Primary Care Provider] - Disposition Disposition (needs filled in before D/C Order can be placed): Home, Self Care
[2024-02-25] MEDS: MitoMYcin 40 MG in Syringe 1 EACH 2400 MG INSTILLAT (12:36)
--- NOTE | 2024-02-25 12:36 | OP.PCM_ITS ---
Report of Operation Date of Procedure: 02/25/24 Pre-Operative Diagnosis: Large tumor from the patient's right lateral wall about 5 cm in size appears invasive Post-Operative Diagnosis: Same Surgery/Procedure Performed:: Transurethral section of large bladder tumorAnd instillation Mitomycin-C Description of Surgical Findings:: Patient was taken back to the operating room at this with induction of anesthesia he was placed in dorsolithotomy position the penis and testicles were prepped and draped in usual sterile fashion. I then went into the bladder with a 21 [place] rigid cystourethroscope we did a 30 degree and 70 degree fulton cystoscopy to look at all the lateral edges of bladder identified a large tumor measured 5 cm x 5 cm by the right lateral wall of the bladder I then switched over to the resectoscope using the noncontinuous 24 [place] resectoscope started resecting at the lateral edge I then resected identified the ureteral orifice on the right side and then Resecting up on the Right Lateral Wall the Bladder the Tumor Appeared to Be Invasive since I did a complete resection down to the muscle layer. After resecting the cancer all the way down to the muscle layer and then cauterized the base extensively to obtain hemostasis once hemostasis was adequate then I placed a Ludwig catheter in the bladder and we instilled Mitomycin-C into the bladder and then the left catheter in place with a clamp he will leave the indwelling Mitomycin-C for an hour and will remove the catheter in the PACU and hour later. In summary this is a large tumor invasive appearing bladder cancer was somewhat papillary but otherwise sessile occupying the right lateral wall the bladder above the right ureteral orifice and the right ureter this was clear of the tumor and the left ureteral stent clear the rest of the bladder was clear. Surgeon: Jose Mckeon Type of Anesthesia: General Special Medications: mitomyctin c Drains: 20 fr Admit VTE Documentation VTE Present on Admission: No VTE Mechan Device Prophylaxis: SCD's VTE Pharm Prophylaxis ordered?: No
[2024-02-25] MEDS: Ketorolac 15 MG/ML Vial IV (12:58)
--- NOTE | 2024-02-25 17:13 | PCM.POSTANE2 ---
Anesthesia Postop Eval I Sum Anesthesia Postop Eval I Summary Anesthesia Postop Eval I Summary: Anesthesia Postop Eval I: Assessment Summary Airway patent Spontaneous unlabored respirations Mental status nausea Vomiting Anesthesia Postop Eval I: Fluid Summary Crystalloid volume administer (ml) Colloids volume administered ( ml) Blood Product volume administered (ml) Total IV fluid infused Anesthesia Postop Eval I: Summary Notes Anesthesia Complication Anesthesia Complication Comment: Post-operative progress note Anesthesia: Postop Eval II Evaluation Mental status: Awake and Calm Pain Level: 1 nausea: No Vomiting: No Progress Note Post-operative progress note: Patient was evaluated at about 1320. Doing extremely well Complications Anesthesia Complication: No
== END 2024-02-25 14:07 | disposition home or self-care (01) ==
LOC: SDC 08:59 → AC 09:00
PROVIDERS: Anesthesiology; PCP Family Medicine; Referring Provider Urology; Visit Provider Urology
PROC: 0T5B8ZZ Destruction of Bladder, Via Natural or Artificial Opening Endoscopic (ICD-10-PCS; CPT 51720; principal; 2024-02-25 11:00)
DX: C67.9 Malignant neoplasm of bladder, unspecified (principal); K74.60 Unspecified cirrhosis of liver; J44.9 Chronic obstructive pulmonary disease, unspecified; F17.210 Nicotine dependence, cigarettes, uncomplicated; Z86.711 Personal history of pulmonary embolism
CPT/HCPCS: 52240; 00912; 85027; 88307; 88341; 88342; 93005; J7120; J9280; J2405

== ENCOUNTER 2024-02-27 14:11 | Emergency (ER) | payer OTHER, MEDICARE, SELFPAY ==
[2024-02-27 14:13] VITALS: BP 139/77; PULSE 72; RESP 15; TEMP 36.8; O2SAT 95; BMI 28.2
--- NOTE | 2024-02-27 14:53 | EDS_ITS ---
HPI History of Present Illness Chief Complaint: Complaint Informant: patient Narrative Narrative: Few days ago patient had surgery for tumor resection from his bladder with Dr. Mckeon. He has been urinating blood with clots and it seemed worse today, he called and was referred to the ER for evaluation Since it is the weekend. He denies having any pain, fevers, chills, lightheadedness, back pain. He has had some large clots, he has been able to push them out without acute retention. He is taking no blood thinners right now. [facility] Medical History Wears dentures Wears glasses Cancer Kidney stones Pulmonary embolism Migraine headache Injury of head and neck History of IBS COPD (chronic obstructive pulmonary disease) History of rheumatic fever Tobacco use disorder, continuous Encounter for screening for malignant neoplasm of lung Night sweats Unintentional weight loss Insomnia Tobacco use disorder, continuous Glossopharyngeal neuralgia Nausea Abdominal pain Depression Hypertension Carpal tunnel syndrome on both sides Lupus Bladder cancer Hypercoagulable state Hereditary hemochromatosis PORT PLACEMENT History of pulmonary embolus (PE) Cirrhosis Home Medications ?Medication ?Instructions ?Recorded ?Last Taken ?Type COVID-19 antigen test (COVID-19 #4 ea 08/25/22 Unknown Rx At-Home Test kit) ziconotide 100 mcg/mL intrathecal 100 mcg continuous intrathecal 08/25/22 11/05/22 History solution (Prialt) infusion DAILY pain trazodone 100 mg tablet See Rx Instructions .Route 02/02/23 Unknown Rx .COMPLEX #180 TABLETS ciprofloxacin HCl 500 mg tablet 500 mg PO BID #10 tabs 02/25/24 Unknown Rx (Cipro) ibuprofen 600 mg tablet 600 mg PO Q6H PRN fever or pain 02/25/24 Unknown Rx #20 tabs phenazopyridine 100 mg tablet 100 mg PO TID #20 tabs 02/25/24 Unknown Rx (Pyridium) tamsulosin 0.4 mg capsule (Flomax) 0.4 mg PO DAILY #90 caps 02/25/24 Unknown Rx Allergy/AdvReac Type Severity Reaction Status Date / Time lorazepam (From Ativan) Allergy Severe Other Verified 02/27/24 14:15 cephalexin (From Keflex) AdvReac Severe Nausea/Vom/ Verified 02/27/24 14:15 Diarrhea fluoxetine HCl (From Prozac) AdvReac Severe Vomiting Verified 02/27/24 14:15 morphine AdvReac Severe Rash Verified 02/27/24 14:15 oxycodone AdvReac Severe Hives Verified 02/27/24 14:15 pregabalin (From Lyrica) AdvReac Severe hypotension Verified 02/27/24 14:15 duloxetine (From Cymbalta) AdvReac NEEDS Verified 02/27/24 14:15 FOLLOW-UP Family History Father Prostate cancer Heart disease Grandfather Diabetes Grandmother Diabetes Mother Hypertension Heart disease Sister Hypertension Sisters x2 Surgical History Hx of cystoscopy History of removal of Port-a-Cath History of carpal tunnel surgery of left wrist History of carpal tunnel surgery of right wrist History of spinal fusion History of cholecystectomy History of appendectomy History of deviated nasal septum Social History Smoking Status: Current every day smoker tobacco type: cigarettes Tobacco: How many years used: 42 Smokeless tobacco user: other Electronic Cigarette Use: not used second hand exposure: Yes quit status: not considering quitting alcohol intake: never substance use type: does not use what type of physical activity do you participate in: none seatbelt use: always do you feel safe at home: Yes ROS ROS ED Constitutional Constitutional ED: Denies chills or fever(s) Cardiovascular Cardiovascular: Denies lightheadedness or syncope Respiratory/Chest Respiratory/Chest: Denies dyspnea Gastrointestinal Gastrointestinal: Denies abdominal pain, nausea or vomiting Genitourinary Genitourinary ED: Reports hematuria; Denies dysuria Musculoskeletal Musculoskeletal: Denies back pain Integumentary Denies rash EXAM Physical Exam Const Vital Signs: 02/27/24 14:13 02/27/24 16:31 02/27/24 17:12 Temperature 98.2 F 98.5 F Temperature Source Temporal Oral Pulse Rate 72 51 L 56 L Respiratory Rate 15 20 H 16 Blood Pressure 139/77 H 113/77 106/79 Blood Pressure Mean 97 89 88 Pulse Ox 95 98 97 Oxygen Delivery Method Room Air Room Air Room Air Positive well nourished and well developed General Appearance ED: well developed and NAD HEENT Reports moist mucous membranes normocephalic and atraumatic Eyes PERRL and EOMs intact bilaterally Neck full ROM and supple Resp normal respiratory effort and clear to auscultation bilaterally Cardio regular rate, regular rhythm and no murmurs GI non-tender and non-distended Auscultation: normoactive bowel sounds Palpation: soft Back/Spine no CVA tenderness General Back: other FROM Extremity normal to inspection General Extremety ED: Negative for edema, pulses abnormal or tenderness General Extremity: Negative for edema or pulses abnormal Neuro oriented x3, CN's II-XII intact bilaterally and no sensory deficits noted Sensorium / Orientation: awake and alert Motor Exam: strength 5/5 throughout Skin no rashes or lesions noted and no wounds MDM MDM MDM Narrative Medical decision making narrative: Discussed with urology who agrees with triple-lumen catheter and irrigating and reevaluating. Labs look good, there is nitrite in his urine and some sending it for culture but I do not think he needs antibiotics. After irrigating with 2 bags of CBI, he has clear output. Dr. Mckeon recommended sending him home with the catheter, however the patient refuses and would like it removed. He understands that if he has more clots and hematuria he may have to have anyone put in, however more likely he had postoperative clots that we irrigated out and no more active bleeding. Will follow-up as scheduled with urology. Lab Data Attestation: I reviewed the patient's lab results. Labs: Laboratory Results - last 24 hr 02/27/24 14:55 WBC 7.5 RBC 4.72 Hgb 15.2 Hct 44.1 MCV 93.4 MCH 32.2 H MCHC 34.5 RDW Std Deviation 47.7 H RDW Coeff of Marlene 13.8 Plt Count 154 MPV 9.5 Immature Gran % (Auto) 0.300 Neut % (Auto) 60.6 Lymph % (Auto) 28.6 [place] % (Auto) 8.7 Eos % (Auto) 1.3 Baso % (Auto) 0.5 Absolute Neuts (auto) 4.5 Absolute Lymphs (auto) 2.14 Nucleated RBC % 0 Sodium 138 Potassium 4.0 Chloride 109 H Carbon Dioxide 25.0 Anion Gap 4 L BUN 19 H Creatinine 1.00 Estim Creat Clear Calc 92.49 Est GFR (MDRD) Af Amer 98 Est GFR (MDRD) Non-Af 81 BUN/Creatinine Ratio 19.1 Glucose 99 Calcium 8.5 Urine Color Yellow Urine Clarity Cloudy Urine pH 6.0 Ur Specific [place] 1.015 Urine Protein 100 H Urine Glucose (UA) Normal Urine Ketones 5 H Urine Occult Blood 250 H Urine Nitrite Positive H Urine Bilirubin 1 H Urine Urobilinogen 4 H Ur Leukocyte Esterase 100 H Urine RBC > 100 SEEN Urine WBC 5-10 SEEN Ur Squamous Epith Cells 0 SEEN Urine Bacteria 1+ Urine Mucus 0 SEEN Management Discussion w/another healthcare provider: Personal Care Worker (Urology Dr. Mckeon) Discharge Plan Triage Chief Complaint: Complaint ED Provider: Camron Huerta Dx/Rx/DC Orders Clinical Impression: Hematuria Instructions: ED Hematuria Prescriptions: No Action Prialt 100 mcg/mL solution 100 mcg continuous intrathecal infusion DAILY (DME) COVID-19 At-Home Test Kit See Rx Instructions .Route Qty: 4 0RF Rx Instructions: As directed for COVID symptoms tamsulosin [Flomax] 0.4 mg capsule 0.4 mg PO DAILY Qty: 90 0RF phenazopyridine [Pyridium] 100 mg tablet 100 mg PO TID Qty: 20 0RF ciprofloxacin HCl [Cipro] 500 mg tablet 500 mg PO BID Qty: 10 0RF ibuprofen 600 mg tablet 600 mg PO Q6H PRN (Reason: fever or pain) Qty: 20 0RF trazodone 100 mg tablet See Rx Instructions .ROUTE .COMPLEX Qty: 180 1RF Dose Instruction: TAKE 2 TABLETS BY MOUTH AT BEDTIME NEEDED FOR SLEEP Rx Instructions: TAKE 2 TABLETS BY MOUTH AT BEDTIME NEEDED FOR SLEEP Primary Care Provider: Aleksandr Duarte Referrals: Aleksandr Duarte DO [Primary Care Provider] - Jose Mckeon MD [Med Staff - Active Staff] - (as scheduled by Dr. Mckeon, or sooner if any issues; or may return to ER) Print Language: Luxembour[place] Disposition Disposition: Home, Self Care
[2024-02-27 15:03] LABS: Mucous, Urine 0 SEEN /hpf (<or=2+); Squamous Epithelial Cells - UA 0 SEEN /hpf (0-5)
[2024-02-27 15:08] LABS: Absolute Lymphocyte Count 2.14 X10^3/uL (0.83-4.51); Absolute Neutrophil Count 4.5 X10^3/uL (2.0-7.7); Basophil# 0.04 X10^3/uL; Basophil% 0.5 % (0-1); Eosinophils% 1.3 % (0-5); Hematocrit 44.1 % (40-54); Hemoglobin 15.2 g/dL (13.0-16.5); Lymphocyte # 2.14 X10^3/ul (0.83-4.51); Lymphocyte % 28.6 % (19-41); Mean Corp Hgb Conc 34.5 g/dL (32-36); Mean Corpuscular Hgb 32.2 pg (27.0-32.0); Mean Corpuscular Volume 93.4 fL (80-94); Mean Platelet Vol. 9.5 fl (6.2-12.0); Monocyte# 0.65 X10^3/uL; Monocyte% 8.7 % (0-10); NRBC Flagged by Analyzer 0 % (0-5); Neutrophil # 4.52 X10^3/uL (2.7-7.7); Neutrophil % 60.6 % (47-70); Platelet Count 154 K/mm3 (150-450); RBC Distribution Width CV 13.8 % (11.6-14.6); RBC Distribution Width SD 47.7 fl (35.1-43.9); Red Blood Count 4.72 M/mm3 (4.6-6.2); White Blood Count 7.5 K/mm3 (4.4-11.0)
[2024-02-27 15:12] LABS: Color, Urine Yellow (Yellow); Glucose, Dipstick Normal (Normal); Ketone-Dipstick 5 mg/dl (Negative); Leukocyte Esterase-Dipstick 100 /ul (Negative); Nitrite-Dipstick Positive (Negative); Occult Blood-Urine 250 /ul (Negative); Protein-Dipstick 100 mg/dl (Negative); Specific Gravity, Urine 1.015 (1.002-1.030); Urine Clarity Cloudy (Clear); Urine Urobilinogen 4 mg/dl (Normal)
[2024-02-27 15:13] LABS: Urine Bilirubin Dipstick 1 mg/dL (Negative)
[2024-02-27 15:16] LABS: Anion Gap 4 (5-15); BUN 19 mg/dL (7-18); BUN/Creat Ratio 19.1 RATIO (10-20); Calcium,Total 8.5 mg/dL (8.5-10.1); Chloride 109 mmol/L (98-107); EST Glomerular Filtration Rate 81 mL/min (>60); Est Glom Filt Rate - Afr Amer 98 mL/min (>60); Estimated Creatinine Clearance 92.49 ml/min; Glucose 99 mg/dL (74-106); Sodium Level 138 mmol/L (136-145)
[2024-02-27 15:38] LABS: Red Blood Cells-Urine > 100 SEEN /hpf (0-5); White Blood Cells 5-10 SEEN /hpf (0-5)
[2024-02-27 15:39] LABS: Bacteria 1+ /hpf (None Seen)
[2024-02-27] MEDS: Lidocaine Jelly 2% 20 ML Syringe (URO-JET) 1 APPLIC TOPICAL (16:01)
--- NOTE | 2024-02-27 16:02 | ED.RN ---
UNABLE TO PLACE 3WAY CATH WITH SIZES 24,22,18 ALL TRIED. PT MADIE WELL. DR. CONTRERAS AWARE
[2024-02-27 16:31] VITALS: BP 113/77; PULSE 51; RESP 20; TEMP 36.9; O2SAT 98
[2024-02-27 17:12] VITALS: BP 106/79; PULSE 56; RESP 16; O2SAT 97
[2024-02-27 19:10] VITALS: BP 111/71; PULSE 56; RESP 16; TEMP 36.6; O2SAT 99
== END 2024-02-27 19:16 | disposition home or self-care (01) ==
PROVIDERS: Emergency Provider Emergency Medicine; PCP Family Medicine; Visit Provider Emergency Medicine
DX: R31.9 Hematuria, unspecified (principal); J44.9 Chronic obstructive pulmonary disease, unspecified; F17.210 Nicotine dependence, cigarettes, uncomplicated; Z86.711 Personal history of pulmonary embolism
CPT/HCPCS: 51702; 80048; 81001; 85025; 87086; 99283; J7030; A4216

== ENCOUNTER → 2024-03-20 | Outpatient (CLI) | payer OTHER, MEDICARE, SELFPAY ==
--- NOTE | 2024-03-20 07:59 | CT_ITS ---
EXAM: CT CHEST WITH INTRAVENOUS CONTRAST CLINICAL INDICATION: BLADDER CA-STAGING. TECHNIQUE: Helically acquired images were obtained of the chest with intravenous contrast. This CT exam was performed using one or more of the following dose reduction techniques: automated exposure control, adjustment of the mA and/or kV according to patient size, and/or use of iterative reconstruction technique. CONTRAST: IV 100mL Isovue-300 COMPARISON: CT Chest dated 03/24/2022 FINDINGS: LUNGS AND PLEURAL SPACES: Stable 7 mm right middle lobe pulmonary nodule. Mild diffuse centrilobular pulmonary emphysema. No pleural effusion or thickening. No pneumothorax. HEART: Normal. No pericardial effusion. Normal heart size. No coronary artery calcification. MEDIASTINUM: Normal. No mediastinal or hilar adenopathy. Esophagus is unremarkable. No hiatal hernia. BONES/JOINTS: No suspicious lytic or blastic abnormality. VASCULATURE: No aortic aneurysm or dissection. CT/Chest WITH Contrast IMPRESSION: 1. Stable 7 mm right middle lobe pulmonary nodule. Fleischner Society Guidelines (MacMahon, et al. Radiology 2017; 284(1):228-43) suggest no follow-up is necessary despite the high risk of malignancy. 2. Pulmonary emphysema. Electronically Signed: Ronny Gonzalez MD at 8:54 EDT ,
== END | disposition home or self-care (01) ==
LOC: CT 07:52
PROVIDERS: PCP Family Medicine; Referring Provider Internal Medicine Hematology & Oncology; Visit Provider Internal Medicine Hematology & Oncology
DX: C67.9 Malignant neoplasm of bladder, unspecified (principal)
CPT/HCPCS: 71260

== ENCOUNTER → 2024-03-27 | Outpatient (CLI) | payer OTHER, MEDICARE, SELFPAY ==
--- NOTE | 2024-03-27 07:48 | NM_ITS ---
CLINICAL: 63-year-old male with history of carcinoma of the urinary bladder. WHOLE BODY 99m Tc MDP RADIONUCLIDE BONE SCINTIGRAPHY COMPARISON: None available FINDINGS: Following the intravenous administration of 25.3 mCi of 99m Tc MDP, whole body bone images reveal: 1. Increased tracer uptake is identified in the left proximal humeral metaphysis. 2. Facilitated radiopharmaceutical concentration is noted in the thoracic and lumbar spine heterogeneously, shoulders bilaterally the patellofemoral compartment of the left knee, the right midfoot, the first metatarsal phalangeal and interphalangeal articulations of the left forefoot, the left wrist. 3. The remaining skeletal structures are scintigraphically unremarkable with normal-appearing renal images and urinary bladder activity identified. There is calcification of the bilateral costochondral junction. NM/Bone Scan Whole Body IMPRESSION: 1. The increase in radiotracer defined in the left proximal humeral metaphysis may be further investigated with plain film radiography in setting of known bladder carcinoma. 2. Degenerative arthritis is demonstrated in the thoracic and lumbar spine, left wrist, both shoulders, the left knee, right midfoot the left forefoot. Plain film x-ray may also be of benefit in the region of the thoracic lumbar spine. 3. There is no definitive scintigraphic evidence of diffuse appendicular-axial skeletal metastatic disease on the current examination. Electronically Signed: Quinn Márquez DO at 10:57 EDT ,
== END | disposition home or self-care (01) ==
PROVIDERS: PCP Family Medicine; Referring Provider Internal Medicine Hematology & Oncology; Visit Provider Internal Medicine Hematology & Oncology
DX: C67.9 Malignant neoplasm of bladder, unspecified (principal)
CPT/HCPCS: 78306; A9503

== ENCOUNTER → 2024-03-28 | Outpatient (CLI) | payer OTHER, MEDICARE, SELFPAY ==
--- NOTE | 2024-03-28 12:24 | RAD_ITS ---
STUDY: X-RAY - LEFT HUMERUS REASON FOR EXAM: Male, 63 years old. ABNORMAL BONE SCAN TECHNIQUE: 2 view(s) of the humerus. COMPARISON: Bone scan 03/27/2024 FINDINGS: Normal visualized humerus. There is no demonstrated fracture or osseous destructive process. Moderate glenohumeral joint arthrosis with a large goat coffman osteophyte of the humeral head likely corresponds to the increased uptake seen on scintigraphy. No lytic or blastic lesions to suggest metastatic disease to There is no demonstrated soft tissue abnormality. RAD/Humerus min 2 Views IMPRESSION: 1. No radiographic evidence of metastatic disease. 2. Moderate glenohumeral joint arthrosis with osteophyte formation the humeral head corresponding to the increased uptake seen on scintigraphy. Electronically Signed: Quinn Kaur MD at 15:39 EDT ,
== END | disposition home or self-care (01) ==
PROVIDERS: PCP Family Medicine; Referring Provider Internal Medicine Hematology & Oncology; Visit Provider Internal Medicine Hematology & Oncology
DX: R94.8 Abnormal results of function studies of other organs and systems (principal)
CPT/HCPCS: 73060

== ENCOUNTER 2024-04-10 12:28 | Day surgery (SDC) | payer OTHER, MEDICARE, SELFPAY ==
[2024-04-10] VITALS (8 sets, daily range): BP systolic 122–149; BP diastolic 66–98; PULSE 53–69; RESP 15–18; TEMP 35.8–37.1; O2SAT 93–97; BMI 29.7
[2024-04-10] MEDS: Lactated Ringers 1,000 ML 15 ML IV (13:17)
--- NOTE | 2024-04-10 13:30 | HP.PCM_ITS ---
History and Physical Date of Admission: 04/10/24 Date of Service: 04/03/24 MR#: [id number] Acct: [id number] Name: YONATHAN COOL Jr. Rep #: [id number] : 1960 Provider: Dr. Michael Covington MD Age/Sex: 63/M Location: [facility] Status: Signed Intake Vital Signs 03/29/2409:59 04/03/2413:20 Height 6 ft 6 ft Weight: 213 lb 6 oz 219 lb BMI 28.9 29.7 BP 148/95 H 121/79 H Blood Pressure Location Rt brachial Rt brachial Position Sitting Sitting Respiration 16 18 Pulse 80 82 Pulse Source Monitor Monitor Temp 98.5 F 97.4 F L Temp Source Temporal Pulse Oximetry (%) 97 94 Oxygen Delivery Method room air room air Intake Visit Reasons: Port Placement Consult Chief Complaint: port placement consult Is patient in pain?: No Allergies lorazepam (From Ativan) Allergy (Severe, Verified 04/03/24 13:21) Othercephalexin (From Keflex) Adverse Reaction (Severe, Verified 04/03/24 13:21) Nausea/Vom/Diarrheafluoxetine HCl (From Prozac) Adverse Reaction (Severe, Verified 04/03/24 13:21) Vomitingmorphine Adverse Reaction (Severe, Verified 04/03/24 13:21) Rashoxycodone Adverse Reaction (Severe, Verified 04/03/24 13:21) Hivespregabalin (From Lyrica) Adverse Reaction (Severe, Verified 04/03/24 13:21) hypotensionduloxetine (From Cymbalta) Adverse Reaction (Verified 04/03/24 13:21) NEEDS FOLLOW-UP Medications ?Medication ?Instructions ?Recorded ?Confirmed ?Type COVID-19 antigen test (COVID-19 #4 ea 08/25/22 04/03/24 Rx At-Home Test kit) ziconotide 100 mcg/mL intrathecal 100 mcg continuous intrathecal 08/25/22 04/03/24 History solution (Prialt) infusion DAILY pain trazodone 100 mg tablet See Rx Instructions .Route 02/02/23 04/03/24 Rx .COMPLEX #180 TABLETS ibuprofen 600 mg tablet 600 mg PO Q6H PRN fever or pain 06/07/24 07/15/24 Rx #20 tabs tamsulosin 0.4 mg capsule (Flomax) 0.4 mg PO DAILY PRN 03/29/24 04/03/24 History Have you fallen in the past year?: No PFSH Medical History Pain of intrathecal infusion pump pocket after insertion Wears dentures Wears glasses Cancer Kidney stones Pulmonary embolism Migraine headache Injury of head and neck History of IBS COPD (chronic obstructive pulmonary disease) History of rheumatic fever Tobacco use disorder, continuous Encounter for screening for malignant neoplasm of lung Night sweats Unintentional weight loss Insomnia Tobacco use disorder, continuous Glossopharyngeal neuralgia Nausea Abdominal pain Depression Hypertension Carpal tunnel syndrome on both sides Lupus Bladder cancer Hypercoagulable state Hereditary hemochromatosis PORT PLACEMENT History of pulmonary embolus (PE) Cirrhosis Surgical History Hx of tonsillectomy H/O toe surgery H/O repair of rotator cuff H/O brain surgery Hx of cystoscopy History of removal of Port-a-Cath History of carpal tunnel surgery of left wrist History of carpal tunnel surgery of right wrist History of spinal fusion History of cholecystectomy History of appendectomy History of deviated nasal septum Family History Father Prostate cancer Heart diseaseGrandfather DiabetesGrandmother DiabetesMother Hypertension Heart diseaseSister Hypertension Sisters x2 Social History Smoking Status: Current every day smoker tobacco type: cigarettes Tobacco: How many years used: 42 Smokeless tobacco user: other Electronic Cigarette Use: not used second hand exposure: Yes quit status: not considering quitting alcohol intake: never substance use type: does not use what type of physical activity do you participate in: none seatbelt use: always do you feel safe at home: Yes HPI HPI HPI: Patient is a 63-year-old male who presents for consideration of port placement. Patient was diagnosed with bladder cancer after experiencing hematuria dating back to June 2023. He underwent transurethral resection of this tumor with Dr. Mckeon on 02/25/2024 but reports that only a third of the tumor could be removed at that time. He shares that he has now met with oncology and plans are to begin intensive chemotherapy prior to radical cystectomy down at [facility] after completion of this chemotherapy. Plans are to begin chemotherapy on 04/11/2024 and go for 12 weeks. He shares that he plans to pursue smoking cessation with both his and daughter (a former patient of mine for a gallbladder) once his treatment starts. Patient has had a prior right-sided port which he used as part of his diagnosis of hereditary hemochromatosis to undergo routine blood draws. Significantly, the patient had a history of bladder cancer 15 years ago he shares that this was early stage and treated simply with BCG and did not require adjuvant or neoadjuvant chemotherapy. Mr. Cool had his port removed approximately 8 months ago after hematology oncology determined that he would not need any further regular blood draws. He also adds that he required relocation of his port due to port dysfunction and estimates its total time in position to been 5 or 6 years. Patient has no renal dysfunction and are not on hemodialysis. Patient has a history of postoperative infections both with a carpal tunnel surgery of his left upper extremity as well as and treatment of some glossopharyngeal neuralgia. He does deny either infection being caused by staph. Mr. Cool is currently prescribed blood thinners with a baby aspirin only. ROS General General: Yes weight change and fatigue; No appetite, colon cancer, breast cancer or weakness HEENT HEENT: No difficulty swallowing, eye injury, eye surgery, swollen glands or hoarseness Endo Endocrine: No thyroid disease, diabetes mellitus, thyroid cancer, Hair loss, heat intolerance or cold intolerance Skin Skin: No rash or changing moles Musc Musculoskeletal: Yes back problems; No arthritis, rheumatoid arthritis, gout or joint pain Additional Details: cervical neck pain Cardio Cardiovascular: No murmur, pacemaker, heart disease, atrial fibrillation, high blood pressure, heart attack, heart stent, palpitations, shortness of breat with exertion or chest pain Psych Psychiatric: No depression, anxiety or hearing voices Resp Respiratory: Yes shortness of breath, No sleep apnea, No cough, Yes COPD, No asthma, No emphysema and No wheezing Gastro Gastrointestinal: No abdominal pain, No nausea or vomiting, Yes diarrhea, No constipation, Yes blood in stool, No acid reflux, No hemorrhoids, No ulcers, No gallbladder problem and No black,tarry stools Ozzy Hematologic: Yes blood thinners, No blood disorders, No bleeding, No anemia and No blood clots Additional Details: baby aspirin Neuro Neurologic: Yes numbness, Yes tingling and No weakness Exam Const General: cooperative and anxious Orientation: alert, awake and oriented x3 Chest Other: For transverse incisions along right upper chest from patient's prior ports are now well-healed and there is no signs of infection Psych Other: Longitudinal incision over the volar aspect of patient's left upper extremity from prior infection Assessment and Plan Assessment and Plan (1) Bladder cancer: Status: Acute Qualifiers: Bladder location: lateral wall Qualified Code(s): C67.2 - Malignant neoplasm of lateral wall of bladder Comment: Patient is a 63-year-old male who presents for consideration of port placement. He actually has a history of 2 prior ports on the right side with the most recent port being removed by me in September 2022 due to believing that he no longer required this access. However, he has been diagnosed with recurrent bladder cancer and is looking at a intensive course of neoadjuvant therapy before radical cystectomy down at [facility]. Given these plans for chemotherapy he is presently posted for the operating room 04/10/2024. I will plan to proceed with a probable left sided tunneled port placement in light of his multiple right- sided ports. I described the procedure in detail and stressed to him the need to be his own best advocate for care of this port against infection. Mr. Cool confirms understanding. Plan: Left possible right ultrasound and fluoroscopic guided Mediport placement 04/10/2024. Patient okay to continue baby aspirin perioperatively (2) PORT PLACEMENT: Status: Chronic Comment: DR. STEEL x2 (first one became infected) THEN REMOVED I have examined the patient and the H&P has been reviewed. There are no clinical changes since date of exam. Patient shares that he actually had left-sided port that became infected and thus it was moved to the right side before I removed it September 2022. He describes having to do multiple packing sessions of the port pocket site on the left side so there invariably will be some scarring in that location. I shared my preference would be to simply examine both internal jugular vein via ultrasound and proceed with the laterality which favored the greatest diameter. Patient and his expressed understanding of this information. Given patient's prior experience with ports they have no further questions. They have asked me to leave this area accessed in anticipation of chemo starting tomorrow.
--- NOTE | 2024-04-10 13:48 | PRE.ANES_ITS ---
ASA Classification* ASA Classification ASA Classification: 3 Assessment & Plan Anesthesia* Anesthesia Assessment Anesthesia Assessment: Discussed sedation and/or anesthesia options, risks, benefits, and alternatives with patient/parents/legal guardian/POA. Questions invited. The patient/parents/legal guardian/POA seems to understand and agrees to proceed with anesthesia plan. Reviewed the physical assessment, medical history, allergy history and patient home medications list prior to surgery/procedure/anesthetic and documented any changes. Performed airway and anesthesia risk assessments. Anesthesia Type Anesthesia Type: MAC Anesthesia Focused Assessment* Temperature: 97.1 F Pulse Rate: 69 Blood Pressure: 137/81 Respiratory Rate: 16 Pulse Ox: 97 Airway Assessment Mouth opens: >3 cm Mallampati Score: II Focused Labs Anesthesia Preop lab: CBC WBC 7.7 K/mm3 (4.4-11.0) 03/29/24 11:10 RBC 5.38 M/mm3 (4.6-6.2) 03/29/24 11:10 Hgb 16.9 g/dL (13.0-16.5) H 03/29/24 11:10 Hct 47.5 % (40-54) 03/29/24 11:10 Plt Count 187 K/mm3 (150-450) 03/29/24 11:10 CHEMISTRY Potassium 3.7 mmol/L (3.5-5.1) 03/29/24 11:10 Sodium 138 mmol/L (136-145) 03/29/24 11:10 BUN 11 mg/dL (7-18) 03/29/24 11:10 Creatinine 0.97 mg/dL (0.70-1.30) 03/29/24 11:10 Glucose 113 mg/dL (74-106) H 03/29/24 11:10 POC Glucose 101 mg/dL (70-110) 11/15/20 13:42 TSH 0.87 uIU/mL (0.358-3.74) 08/29/21 14:26 COAG PT 13.0 SECONDS (11.7-14.9) 05/29/22 08:58 Pre-Assessment Diagnosis/Proposed Procedure Planned Operative Procedure(s): (R) Insertion, Vascular Port right poss left IJ port Anesthesia History Anesthesia History - maintenance of way supervisor: Anesthesia History - maintenance of way supervisor Hx Hospitalization No 04/05/24 09:11 Any Problems With Anesthesia No 04/05/24 09:11 Cholinesterase deficiency No 04/05/24 09:11 You/Your Family Experience No 04/05/24 09:11 fever (hyperthermia) with Relationship Recent Exposure to Contagious No 04/10/24 13:12 Disease Does patient have nerve No 04/05/24 09:11 stimulator Patient instructed to have device shut off --Does patient have Pacemaker No 04/10/24 13:12 or ICD? When Was Last Pacemaker Check QUESTION #4 FULL TEXT: You/Your Family Experience fever (hyperthermia) with Anesthesia Last Oral Intake Last Oral intake: Last Oral Intake NPO since 22:30 04/10/24 13:12 Meds taken in AM with sips of No 04/10/24 13:12 water? Meds patient instructed to take am of surgery PONV PONV - maintenance of way supervisor: PONV - maintenance of way supervisor Female No 04/05/24 09:11 HX of Motion Sickness No 04/05/24 09:11 HX of N/V After Surgery No 04/05/24 09:11 Non-Smoker No 04/05/24 09:11 Duration of Surgery greater No 04/05/24 09:11 than 60 minutes Number of Risk Factors PONV Score Height & Weight Height & Weight: Anesthesia: Height & Weight Height 6 ft 04/10/24 13:12 Weight: 99.7 kg 04/10/24 13:12 Body Mass Index (BMI) 29.7 04/10/24 13:12 Respiratory Assessment Respiratory Assessment - maintenance of way supervisor: Respiratory Tract Infection Hx - maintenance of way supervisor Hx Respiratory Tract Infection No 04/05/24 09:11 STOP Sleep Apnea STOP Sleep Apnea - maintenance of way supervisor: STOP Sleep Apnea - maintenance of way supervisor Hx Hypertension No 04/05/24 09:11 Hx Sleep Apnea No 04/05/24 09:11 CPAP No 04/05/24 09:11 BIPAP No 04/05/24 09:11 Do you snore loudly (louder No 04/05/24 09:11 than talking or can be heard Do you often feel tired/ No 04/05/24 09:11 fatigued/ sleepy during daytime? Has anyone observed you stop No 04/05/24 09:11 breathing during sleep? STOP Results Negative 04/05/24 09:11 QUESTION #5 FULL TEXT : Do you snore loudly (louder than talking or can be heard through closed doors)? Tobacco Use History Tobacco Use History - maintenance of way supervisor: Tobacco Use History - maintenance of way supervisor Tobacco Use Cigarettes 09/30/22 14:33 Smoking Status Current every day smoker 04/05/24 09:11 Hx Tobacco Use Yes 04/05/24 09:11 Years Smoking Packs Smoked per Day Smoking Cessation Date was within the last 15 years Hx Smoking Cessation Date Hx Smoking Cessation Yes 04/05/24 09:11 Counseling Hematologic Medial History Hematologic Hx - maintenance of way supervisor: Hematologic Medical Hx - card cleaner Hx of Blood Transfusion No 04/05/24 09:11 Hx of Transfusion in last 3 No 04/05/24 09:11 Months Date of Last Transfusion (if within last 3 months) Ever experience any problems No 04/05/24 09:11 with transfusion(s)? Specify any problems Hx of Preganancy in last 3 N/A 04/05/24 09:11 Months Nurse Filling Out Transfusion NBUCHER 04/05/24 09:11 & Questions: Date: 04/05/24 04/05/24 09:11 Time: 09:13 04/05/24 09:11 Patient unable to answer at this time (ie. confused, unrespo /Reproduction History /Reproductive History - maintenance of way supervisor: /Reproductive Hx- maintenance of way supervisor Hx Now Gestational Age (in weeks): EDC: Hx Hx Para Hx Section SAB Active Medications Active Medications: Current Medications Generic Name Dose Route Start Last Admin Trade Name Freq PRN Reason Stop Dose Admin Cefazolin Sodium 2 gm/ Sodium 110 mls @ 150 mls/hr 04/10/24 14:00 Chloride IV 04/10/24 14:43 PREOP ONE Lactated Ringer's 1,000 mls @ 15 mls/hr 04/10/24 12:45 04/10/24 13:17 IV 15 mls/hr .Q48H ESHA Administration PFSH Medical History (Updated 04/04/24 @ 11:10 by Minerva Corley HORSE SHOW MANAGER, HORSE SHOW MANAGER-C) Encounter for education Pain of intrathecal infusion pump pocket after insertion Wears dentures Wears glasses Cancer Kidney stones Pulmonary embolism Migraine headache Injury of head and neck History of IBS COPD (chronic obstructive pulmonary disease) History of rheumatic fever Tobacco use disorder, continuous Encounter for screening for malignant neoplasm of lung Night sweats Unintentional weight loss Insomnia Tobacco use disorder, continuous Glossopharyngeal neuralgia Nausea Abdominal pain Depression Hypertension Carpal tunnel syndrome on both sides Lupus Bladder cancer Hypercoagulable state Hereditary hemochromatosis PORT PLACEMENT History of pulmonary embolus (PE) Cirrhosis Home Medications ?Medication ?Instructions ?Recorded ?Last Taken ?Type ziconotide 100 mcg/mL intrathecal 100 mcg continuous intrathecal 08/25/22 11/05/22 History solution (Prialt) infusion DAILY pain trazodone 100 mg tablet See Rx Instructions .Route 02/02/23 Unknown Rx .COMPLEX #180 TABLETS ibuprofen 600 mg tablet 600 mg PO Q6H PRN fever or pain 02/25/24 Unknown Rx #20 tabs tamsulosin 0.4 mg capsule (Flomax) 0.4 mg PO DAILY 03/29/24 04/09/24 History lidocaine-prilocaine 2.5 %-2.5 % 1 applic topical ONCE PRN port 04/04/24 Unknown Rx topical cream access 30 days #30 grams ondansetron 8 mg disintegrating 8 mg PO Q8H PRN nausea and 04/04/24 Unknown Rx tablet vomiting #30 tabs prochlorperazine maleate 10 mg 10 mg PO Q6H PRN nausea and 04/04/24 Unknown Rx tablet vomiting #30 tabs Allergy/AdvReac Type Severity Reaction Status Date / Time lorazepam (From Ativan) Allergy Severe Other Verified 04/10/24 13:10 cephalexin (From Keflex) AdvReac Severe Nausea/Vom/ Verified 04/10/24 13:10 Diarrhea fluoxetine HCl (From Prozac) AdvReac Severe Vomiting Verified 04/10/24 13:10 morphine AdvReac Severe Rash Verified 04/10/24 13:10 oxycodone AdvReac Severe Hives Verified 04/10/24 13:10 pregabalin (From Lyrica) AdvReac Severe hypotension Verified 04/10/24 13:10 duloxetine (From Cymbalta) AdvReac NEEDS Verified 04/10/24 13:10 FOLLOW-UP Family History Father Prostate cancer Heart disease Grandfather Diabetes Grandmother Diabetes Mother Hypertension Heart disease Sister Hypertension Sisters x2 Surgical History Hx of tonsillectomy H/O toe surgery H/O repair of rotator cuff H/O brain surgery Hx of cystoscopy History of removal of Port-a-Cath History of carpal tunnel surgery of left wrist History of carpal tunnel surgery of right wrist History of spinal fusion History of cholecystectomy History of appendectomy History of deviated nasal septum Social History Smoking Status: Current every day smoker tobacco type: cigarettes Tobacco: How many years used: 42 Smokeless tobacco user: other Electronic Cigarette Use: not used second hand exposure: Yes quit status: not considering quitting alcohol intake: never substance use type: does not use what type of physical activity do you participate in: none seatbelt use: always do you feel safe at home: Yes Review of Systems (Anesthesia) ROS Narrative System reviewed and no additional complaints, except as documented.
[2024-04-10] MEDS: Cefazolin 2 GM in 0.9% Normal Saline (100mL Bag) 100 ML IV (13:52)
[2024-04-10] MEDS: Bupiv/Epi 0.25% 30 ML Vial (14:17)
--- NOTE | 2024-04-10 15:07 | PCM.OPRPT ---
Report of Operation Date of Procedure: 04/10/24 Pre-Operative Diagnosis: Bladder cancer requiring durable venous access for chemotherapy Post-Operative Diagnosis: Same Surgery/Procedure Performed:: Ultrasound and fluoroscopic?guided placement of left internal jugular Port-A-Cath Description of Surgical Findings:: ? Left-sided internal jugular vein with better Doppler flow in greater diameter than right sided internal jugular vein ? Easy aspiration and flush of new 8 Martiniquais port ? Port accessed with butterfly needle and sterilely dressed Surgeon: Michael Covington merchant miller: None Type of Anesthesia: MAC/Supplemental/Local Anesthesiologist: Victor Manuel Oakley Specimen's removed: None Estimated Blood Loss (mL): 20 Description of Procedure: After appropriate identification in the preoperative holding area the patient was brought to the operating room. There he was administered preoperative antibiotics and positioned supine on the operating room table. Once sedation was begun, the bilateral internal jugular veins were examined with ultrasound and the left internal jugular vein showed a clear Doppler signal as well as greater diameter than the right so it was selected for placement of a port. The upper chest and lower cervical region were prepped and draped in usual sterile fashion. A formal timeout was then conducted to confirm both the patient and procedure. Ultrasound was used to localize the left internal jugular vein. Then a wheal of local anesthetic with epinephrine was raised superficially in this location and the vein was accessed with a single attempt under direct ultrasound guidance using a Seldinger technique and standard 035 guidewire. Next the position of the port pocket was determined just lateral to patient's prior port pocket site location and again local anesthetic was used to anesthetize the area of both the pocket and the tunneling cephalad. A transverse incision approximately 3 cm in width was made down through the subcutaneous tissue. Selective electrocautery was used to obtain hemostasis. Then with blunt dissection the port pocket was developed. The catheter was connected to the tunneler and was tunneled up to the position of the guidewire. Here the dilator and peel-away sheath were placed over the guidewire and the guidewire was removed. Position was again confirmed with fluoroscopy. The catheter length was estimated based on the external placement of a hemostat to approximate the level of the madi and the cavoatrial junction. The catheter was then fed into the sheath and slowly the sheath was peeled away as the catheter was inserted fully into the neck. Back in the chest the excess catheter was trimmed and the port was connected to the catheter. The port was tied into the pocket using 3-0 Vicryl. Function was then tested using sterile saline on a Andujar needle. It was locked with 3 mL of heparinized saline (concentration 50U/5mL). The port pocket was closed with a deep dermal stitch using a running 3-0 Vicryl followed by 4-0 Monocryl subcuticular stitch. The 1 cm incision in the neck was closed with a single interrupted subcuticular stitch using 4-0 Monocryl. Dermabond was applied as a dressing. The port was accessed with a butterfly needle and a dressing was placed to hold it securely. Patient was then aroused from the sedation and taken to PACU for ongoing recovery were a portable chest x-ray was obtained to confirm port positioning and exclude any pneumothorax. Grafts/Implants Used: PowerPort ISP Ref [id number], LOT [id number] EXP 11/17/25 Complications None Procedures Cardiovascular CF Procedures [id number]: [id number] Insert tunneled cv cath
--- NOTE | 2024-04-10 15:09 | DCINST_ITS ---
Discharge Instructions Diet Discharge Diet: No restrictions Activity Discharge Activity: May Shower Dressing / Incision Call your doctor if your incision/area has: Continuous Slow Oozing, Sudden Increased Bleeding, Increased Pain/ Swelling, Increased Redness, Foul Smelling Discharge and Swelling at the incision site Call your doctor if you observe: Fever of 101 or Higher and Uncontrolled pain Cleanse incision/area with: Soap & Water Follow Up Care Test Results: Test results from this visit will be discussed in further detail at your follow- up appointment, if applicable. Discharge Plan Admission Attending Provider: Michael Covington Primary Care Provider: Aleksandr Duarte Instructions Print Language: Occitan Discharge Orders/Prescriptions Prescriptions: No Action Prialt 100 mcg/mL solution 100 mcg continuous intrathecal infusion DAILY tamsulosin [Flomax] 0.4 mg capsule 0.4 mg PO DAILY prochlorperazine maleate 10 mg tablet 10 mg PO Q6H PRN (Reason: nausea and vomiting) Qty: 30 2RF ondansetron 8 mg tablet,disintegrating 8 mg PO Q8H PRN (Reason: nausea and vomiting) Qty: 30 2RF lidocaine-prilocaine 2.5-2.5 % cream 1 applic topical ONCE PRN (Reason: port access) 30 Days Qty: 30 2RF ibuprofen 600 mg tablet 600 mg PO Q6H PRN (Reason: fever or pain) Qty: 20 0RF trazodone 100 mg tablet See Rx Instructions .ROUTE .COMPLEX Qty: 180 1RF Dose Instruction: TAKE 2 TABLETS BY MOUTH AT BEDTIME NEEDED FOR SLEEP Rx Instructions: TAKE 2 TABLETS BY MOUTH AT BEDTIME NEEDED FOR SLEEP Referrals / Follow Up: Aleksandr Duarte DO [Primary Care Provider] - Disposition Disposition (needs filled in before D/C Order can be placed): Home, Self Care
--- NOTE | 2024-04-10 15:10 | RAD_ITS ---
INDICATION: Status post line placement EXAMINATION/TECHNIQUE: X-RAY - portable upright AP chest x-ray COMPARISON: 01/26/2022 FINDINGS: LINES/DEVICES: Interval placement left-sided port. LUNGS: No consolidation, edema or effusion. No pneumothorax. MEDIASTINUM AND CARDIOVASCULAR STRUCTURES: Cardiac silhouette not enlarged. Central airways and mediastinal contour are unremarkable. BONES AND SOFT TISSUES: No acute changes. RAD/CXR for Line Placement IMPRESSION: No radiographic evidence of acute cardiopulmonary disease. Electronically Signed: Armando Vargas MD at 16:48 EDT ,
--- NOTE | 2024-04-10 16:30 | PCM.POST.ANE ---
Anesthesia: Postop Eval I Current Vital Signs Temperature: 98.2 F Pulse Rate: 69 Blood Pressure: 149/98 Respiratory Rate: 15 Pulse Ox: 94 Oxygen Delivery Method: Room Air Assessment Airway patent: Yes Spontaneous unlabored respirations: Yes Mental status: Awake nausea: No Vomiting: No Anesthesia Complication: No Fluid Hydration Crystalloid volume administer (ml): 800 Total IV fluid infused: 800 Progress Note Anesthesia document: Postop Eval 1 completed: Yes
--- NOTE | 2024-04-11 09:26 | POSTOPAN2_ITS ---
Anesthesia Postop Eval I Sum Postop Eval Completion status Anesthesia document: Postop Eval 1 completed: Yes Anesthesia Postop Eval I Summary Anesthesia Postop Eval I Summary: Anesthesia Postop Eval I: Assessment Summary Airway patent Yes 04/10/24 16:30 CIVIL SERVICE CLERK.MDOT Spontaneous unlabored Yes 04/10/24 16:30 CIVIL SERVICE CLERK.MDOT respirations Mental status Awake 04/10/24 16:30 CIVIL SERVICE CLERK.MDOT nausea No 04/10/24 16:30 CIVIL SERVICE CLERK.MDOT Vomiting No 04/10/24 16:30 CIVIL SERVICE CLERK.MDOT Anesthesia Postop Eval I: Fluid Summary Crystalloid volume administer 800 04/10/24 16:30 CIVIL SERVICE CLERK.MDOT (ml) Colloids volume administered ( ml) Blood Product volume administered (ml) Total IV fluid infused 800 04/10/24 16:30 CIVIL SERVICE CLERK.MDOT Anesthesia Postop Eval I: Summary Notes Anesthesia Complication No 04/10/24 16:30 CIVIL SERVICE CLERK.MDOT Anesthesia Complication Comment: Post-operative progress note Anesthesia: Postop Eval II Evaluation Mental status: Awake and Calm Pain Level: 1 nausea: No Vomiting: No Complications Anesthesia Complication: No
--- NOTE | 2024-04-11 09:26 | PCM.POSTANE2 ---
Anesthesia Postop Eval I Sum Postop Eval Completion status Anesthesia document: Postop Eval 1 completed: Yes Anesthesia Postop Eval I Summary Anesthesia Postop Eval I Summary: Anesthesia Postop Eval I: Assessment Summary Airway patent Yes 04/10/24 16:30 PLAY BACK OPERATOR.MDOT Spontaneous unlabored Yes 04/10/24 16:30 PLAY BACK OPERATOR.MDOT respirations Mental status Awake 04/10/24 16:30 PLAY BACK OPERATOR.MDOT nausea No 04/10/24 16:30 PLAY BACK OPERATOR.MDOT Vomiting No 04/10/24 16:30 PLAY BACK OPERATOR.MDOT Anesthesia Postop Eval I: Fluid Summary Crystalloid volume administer 800 04/10/24 16:30 PLAY BACK OPERATOR.MDOT (ml) Colloids volume administered ( ml) Blood Product volume administered (ml) Total IV fluid infused 800 04/10/24 16:30 PLAY BACK OPERATOR.MDOT Anesthesia Postop Eval I: Summary Notes Anesthesia Complication No 04/10/24 16:30 PLAY BACK OPERATOR.MDOT Anesthesia Complication Comment: Post-operative progress note Anesthesia: Postop Eval II Evaluation Mental status: Awake and Calm Pain Level: 1 nausea: No Vomiting: No Complications Anesthesia Complication: No
== END 2024-04-10 16:53 | disposition home or self-care (01) ==
LOC: SDC 12:29 → AC 12:30
PROVIDERS: PCP Family Medicine; Referring Provider Surgery; Visit Provider Surgery
PROC: (CPT 36561; principal; 2024-04-10 13:45)
DX: Z45.2 Encounter for adjustment and management of vascular access device (principal); C67.2 Malignant neoplasm of lateral wall of bladder; J44.9 Chronic obstructive pulmonary disease, unspecified; F17.210 Nicotine dependence, cigarettes, uncomplicated; E83.110 Hereditary hemochromatosis; Z79.899 Other long term (current) drug therapy; Z86.711 Personal history of pulmonary embolism
CPT/HCPCS: 36561; 00532; 71045; 77001; C1894; J7120; C1788; J2405

== ENCOUNTER 2024-06-09 17:50 | Emergency (ER) | payer OTHER, MEDICARE, SELFPAY ==
[2024-06-09 17:51] VITALS: BP 137/76; PULSE 83; RESP 18; TEMP 37.1; O2SAT 95; BMI 29.9
[2024-06-09] MEDS: predniSONE 20 MG Tablet 60 MG PO (18:07)
--- NOTE | 2024-06-09 18:10 | EX.ED.DYSGE1 ---
HPI <ELIAN Plummer - Last Filed: 06/09/24 21:37> History of Present Illness Chief Complaint: Ear Problem Narrative Narrative: Patient is a 63-year-old male with history of hypertension hyperlipidemia, diabetes, does smoke 1 pack/day, who is also being treated right now with chemotherapy for bladder cancer. Presenting to the emergency department with not feeling well for the last 2 to 3 days, worsening ear pain and left-sided throat pain for the last 24 hours. Patient denies any fevers however does have subjective chills. Patient is currently on antibiotics for his left eye that he states was draining yesterday went to urgent care. PFS <ELIAN Plummer - Last Filed: 06/09/24 21:37> [facility] Medical History Hypomagnesemia Oral candidiasis Encounter for education Pain of intrathecal infusion pump pocket after insertion Wears dentures Wears glasses Cancer Kidney stones Pulmonary embolism Migraine headache Injury of head and neck History of IBS COPD (chronic obstructive pulmonary disease) History of rheumatic fever Tobacco use disorder, continuous Encounter for screening for malignant neoplasm of lung Night sweats Unintentional weight loss Insomnia Tobacco use disorder, continuous Glossopharyngeal neuralgia Nausea Abdominal pain Depression Hypertension Carpal tunnel syndrome on both sides Lupus Bladder cancer Hypercoagulable state Hereditary hemochromatosis PORT PLACEMENT History of pulmonary embolus (PE) Cirrhosis Home Medications ?Medication ?Instructions ?Recorded ?Last Taken ?Type ziconotide 100 mcg/mL intrathecal 100 mcg continuous intrathecal 08/25/22 11/05/22 History solution (Prialt) infusion DAILY pain trazodone 100 mg tablet See Rx Instructions .Route 02/02/23 Unknown Rx .COMPLEX #180 TABLETS ibuprofen 600 mg tablet 600 mg PO Q6H PRN fever or pain 02/25/24 Unknown Rx #20 tabs tamsulosin 0.4 mg capsule (Flomax) 0.4 mg PO DAILY 03/29/24 04/09/24 History lidocaine-prilocaine 2.5 %-2.5 % 1 applic topical ONCE PRN port 04/04/24 Unknown Rx topical cream access 30 days #30 grams prochlorperazine maleate 10 mg 10 mg PO Q6H PRN nausea and 04/04/24 Unknown Rx tablet vomiting #30 tabs nystatin 100,000 unit/mL oral 500,000 unit (5 mL) PO TID #473 mL 04/17/24 Unknown Rx suspension ondansetron 8 mg disintegrating 8 mg PO Q8H PRN nausea and 05/24/24 Unknown Rx tablet vomiting #30 tabs cyanocobalamin (vitamin B-12) 500 500 mcg PO QDAY 05/29/24 Unknown History mcg tablet magnesium 250 mg tablet 250 mg PO QDAY 05/29/24 Unknown History polymyxin B sulfate 10,000 1 drp ophthalmic (eye) Q3H 7 days 06/08/24 Unknown Rx unit-trimethoprim 1 mg/mL eye drops #10 mL doxycycline hyclate 100 mg tablet 100 mg PO BID #14 tabs 06/09/24 Unknown Rx prednisone 50 mg tablet 50 mg PO DAILY #5 tabs 06/09/24 Unknown Rx Allergy/AdvReac Type Severity Reaction Status Date / Time lorazepam (From Ativan) Allergy Severe Other Verified 06/12/24 08:58 cephalexin (From Keflex) AdvReac Severe Nausea/Vom/ Verified 06/12/24 08:58 Diarrhea fluoxetine HCl (From Prozac) AdvReac Severe Vomiting Verified 06/12/24 08:58 morphine AdvReac Severe Rash Verified 06/12/24 08:58 oxycodone AdvReac Severe Hives Verified 06/12/24 08:58 pregabalin (From Lyrica) AdvReac Severe hypotension Verified 06/12/24 08:58 duloxetine (From Cymbalta) AdvReac NEEDS Verified 06/12/24 08:58 FOLLOW-UP Family History Father Prostate cancer Heart disease Grandfather Diabetes Grandmother Diabetes Mother Hypertension Heart disease Sister Hypertension Sisters x2 Surgical History Hx of tonsillectomy H/O toe surgery H/O repair of rotator cuff H/O brain surgery Hx of cystoscopy History of removal of Port-a-Cath History of carpal tunnel surgery of left wrist History of carpal tunnel surgery of right wrist History of spinal fusion History of cholecystectomy History of appendectomy History of deviated nasal septum Social History Smoking Status: Current every day smoker tobacco type: cigarettes Tobacco: How many years used: 42 Smokeless tobacco user: other Electronic Cigarette Use: not used second hand exposure: Yes quit status: not considering quitting alcohol intake: never substance use type: does not use what type of physical activity do you participate in: none seatbelt use: always do you feel safe at home: Yes ROS <ELIAN Plummer - Last Filed: 06/09/24 21:37> ROS ED ROS Narrative Constitutional: Negative for fever, weight loss, weakness. Positive for chills Eyes: Negative for vision loss, vision change, double vision ENT: Negative for any congestion. Positive for left-sided ear pain, left-sided throat pain Cardiovascular: Negative for any chest pain, tightness, palpitations Respiratory: Negative for any sputum production, hemoptysis, dyspnea, dyspnea on exertion, orthopnea. Positive for cough Gastrointestinal: Negative for any abdominal pain, nausea, vomiting, diarrhea, constipation, blood in stool, blood in vomit : Negative for any urinary frequency, dysuria, retention, blood in urine Muscle skeletal: Negative for any neck pain, back pain Neurological: Negative for any headache, syncope, dizziness Skin: Negative for any rashes, itching, abrasions, lacerations Psychiatric: Negative for any depression, anxiety, stress, suicidal ideation, homicidal ideation Hematologic: Negative for any excessive bruising, easy bleeding EXAM <ELIAN Plummer - Last Filed: 06/09/24 21:37> Physical Exam Narrative Exam Narrative: Vital signs reviewed. HEET: Head normocephalic atraumatic, TMs clear bilaterally. Posterior pharynx is clear, moist mucous membranes. Nares clear bilaterally. Posterior pharynx clear, patient is tender to the anterior cervical chain on the left Neck: Supple with no lymphadenopathy or tenderness. No signs of meningismus. Cardiac: Regular rate and rhythm no murmurs gallops or rubs, equal peripheral pulses bilaterally. Respiratory: Expiratory wheezes throughout pulmonary exam.. No chest tenderness. Abdomen: Soft, nontender, nondistended. No abdominal bruit or pulsatile masses. No hepatosplenomegaly Extremities: No peripheral edema, no signs of gross trauma or deformity. Active full range of motion of all extremities. Neuro: Cranial nerves II through XII intact, no focal neurological deficits. Skin: Clean dry and intact with no rash, purpura, petechiae, vesicles or pustules. Backs/flank: No CVA tenderness, no midline spinal tenderness, no deformity. Psych: Normal mood and affect. No SI, HI or acute psychosis. Const Vital Signs: 06/09/24 17:51 06/09/24 18:31 06/09/24 19:50 Temperature 98.8 F Temperature Source Oral Pulse Rate 83 83 77 Respiratory Rate 18 16 14 Respiratory Pattern Normal Blood Pressure 137/76 H 125/66 H Blood Pressure Mean 96 85 Pulse Ox 95 93 Oxygen Delivery Method Room Air Room Air 06/09/24 21:00 Temperature Temperature Source Pulse Rate 79 Respiratory Rate 18 Respiratory Pattern Blood Pressure 115/74 Blood Pressure Mean 87 Pulse Ox 95 Oxygen Delivery Method Room Air <Dr. Odilia Urban DO - Last Filed: 06/14/24 07:21> Physical Exam Const Vital Signs: 06/09/24 17:51 06/09/24 18:31 06/09/24 19:50 Temperature 98.8 F Temperature Source Oral Pulse Rate 83 83 77 Respiratory Rate 18 16 14 Respiratory Pattern Normal Blood Pressure 137/76 H 125/66 H Blood Pressure Mean 96 85 Pulse Ox 95 93 Oxygen Delivery Method Room Air Room Air 06/09/24 21:00 Temperature Temperature Source Pulse Rate 79 Respiratory Rate 18 Respiratory Pattern Blood Pressure 115/74 Blood Pressure Mean 87 Pulse Ox 95 Oxygen Delivery Method Room Air MDM <ELIAN Plummer - Last Filed: 06/09/24 21:37> [facility] Lab Data Labs: Laboratory Results - last 24 hr 06/09/24 18:27 WBC 3.7 L RBC 2.47 L Hgb 7.9 L Hct 23.1 L MCV 93.5 MCH 32.0 MCHC 34.2 RDW Std Deviation 53.1 H RDW Coeff of Marlene 18.2 H Plt Count 78 L MPV 9.3 Immature Gran % (Auto) 1.900 H Neut % (Auto) 72.9 H Lymph % (Auto) 18.6 L [place] % (Auto) 6.0 Eos % (Auto) 0.3 Baso % (Auto) 0.3 Absolute Neuts (auto) 2.7 Absolute Lymphs (auto) 0.68 L Nucleated RBC % 1.9 Differential Comment SCANNED Platelet Estimate MOD DEC Polychromasia 1+ Anisocytosis 2+ Sodium 140 Potassium 3.3 L Chloride 107 Carbon Dioxide 26.0 Anion Gap 7 BUN 11 Creatinine 0.90 Estim Creat Clear Calc 105.53 Est GFR (MDRD) Af Amer 110 Est GFR (MDRD) Non-Af 91 BUN/Creatinine Ratio 12.2 Glucose 121 H Calcium 7.9 L Radiography Diagnostic Testing: Clinical Impression(s) from Imaging Studies Chest X-Ray 06/09/24 18:52 IMPRESSION: No acute cardiopulmonary pathology Electronically Signed: Xavier Naidu MD at 19:21 EDT , Soft Tissue Neck CT 06/09/24 19:56 IMPRESSION: No acute findings in the neck. Asymmetry of the submandibular glands with significant atrophy of the left submandibular gland. Electronically Signed: Armando Vargas MD at 21:21 EDT , Treatment and Re-Evaluation :: Differential diagnosis includes however is not limited to: COVID-19, influenza, RSV, peritonsillar abscess, pharyngitis, eustachian tube dysfunction Patient appears generally well, vital signs are stable, patient is nontoxic-appearing. Patient presents to the emergency department for sore throat, left ear pain. Patient will receive an breathing treatment secondary to the wheezing, basic laboratories will be drawn secondary to the patient being on chemotherapy. Patient will be given oral steroids. Viral swab will be obtained. Two-view chest x-ray will be completed. All radiologic examinations were read, reviewed by the emergency department attending. From these reads, a plan of care will be put in place. After the patient's breathing treatments, the patient did have improvement. Patient was given oral steroids. Laboratory values did show a leukopenia with a white blood cell count of 3.7, this is secondary to the chemotherapy. Patient's hemoglobin is 7.9, patient is normal around 10.7, I did speak with the patient regarding this, he was told that his hemoglobin will get lower with his chemo. He will follow-up outpatient. Patient's chemistries were unremarkable. Patient's chest x-ray was negative for any acute process. Patient's CT scan of the soft tissue neck showed no acute findings in neck, asymmetry of the submandibular glands with significant atrophy of the left submandibular gland. No other acute process. At this time, patient be treated as a URI however patient will also be treated for COPD exacerbation. Patient replaced on 5 days of steroids as well as doxycycline. He will follow-up outpatient. Patient stable for discharge. <Dr. Odilia Urban, - Last Filed: 06/14/24 07:21> [facility] Lab Data Labs: Laboratory Results - last 24 hr 06/09/24 18:27 WBC 3.7 L RBC 2.47 L Hgb 7.9 L Hct 23.1 L MCV 93.5 MCH 32.0 MCHC 34.2 RDW Std Deviation 53.1 H RDW Coeff of Marlene 18.2 H Plt Count 78 L MPV 9.3 Immature Gran % (Auto) 1.900 H Neut % (Auto) 72.9 H Lymph % (Auto) 18.6 L [place] % (Auto) 6.0 Eos % (Auto) 0.3 Baso % (Auto) 0.3 Absolute Neuts (auto) 2.7 Absolute Lymphs (auto) 0.68 L Nucleated RBC % 1.9 Differential Comment SCANNED Platelet Estimate MOD DEC Polychromasia 1+ Anisocytosis 2+ Sodium 140 Potassium 3.3 L Chloride 107 Carbon Dioxide 26.0 Anion Gap 7 BUN 11 Creatinine 0.90 Estim Creat Clear Calc 105.53 Est GFR (MDRD) Af Amer 110 Est GFR (MDRD) Non-Af 91 BUN/Creatinine Ratio 12.2 Glucose 121 H Calcium 7.9 L Radiography Chest X-Ray - ED: 2 View, Read by ED Physician, Read by Radiologist and No Acute Disease Diagnostic Testing: Clinical Impression(s) from Imaging Studies Chest X-Ray 06/09/24 18:52 IMPRESSION: No acute cardiopulmonary pathology Electronically Signed: Xavier Naidu MD at 19:21 EDT , Soft Tissue Neck CT 06/09/24 19:56 IMPRESSION: No acute findings in the neck. Asymmetry of the submandibular glands with significant atrophy of the left submandibular gland. Electronically Signed: Armando Vargas MD at 21:21 EDT , Treatment and Re-Evaluation :: Differential diagnosis includes however is not limited to: COVID-19, influenza, RSV, peritonsillar abscess, pharyngitis, eustachian tube dysfunction Patient appears generally well, vital signs are stable, patient is nontoxic-appearing. Patient presents to the emergency department for sore throat, left ear pain. Patient will receive an breathing treatment secondary to the wheezing, basic laboratories will be drawn secondary to the patient being on chemotherapy. Patient will be given oral steroids. Viral swab will be obtained. Two-view chest x-ray will be completed. All radiologic examinations were read, reviewed by the emergency department attending. From these reads, a plan of care will be put in place. After the patient's breathing treatments, the patient did have improvement. Patient was given oral steroids. Laboratory values did show a leukopenia with a white blood cell count of 3.7, this is secondary to the chemotherapy. Patient's hemoglobin is 7.9, patient is normal around 10.7, I did speak with the patient regarding this, he was told that his hemoglobin will get lower with his chemo. He will follow-up outpatient. Patient's chemistries were unremarkable. Patient's chest x-ray was negative for any acute process. Patient's CT scan of the soft tissue neck showed no acute findings in neck, asymmetry of the submandibular glands with significant atrophy of the left submandibular gland. No other acute process. At this time, patient be treated as a URI however patient will also be treated for COPD exacerbation. Patient replaced on 5 days of steroids as well as doxycycline. He will follow-up outpatient. Patient stable for discharge. I have personally performed a face to face assessment of the patient and have reviewed the AIMEE Note. I performed a substantive portion of the visit including all aspects of the following. My carpenter findings include: History is patient is a 63-year-old male with history of bladder cancer (currently undergoing chemotherapy) as well as tobacco use, hemochromatosis and COPD presenting with left-sided ear pain, throat pain and neck pain as well as some URI symptoms and wheezing. Has been going on for 2 to 3 days. No fever reported but some subjective chills. Was seen in urgent care yesterday for drainage from his eyes and started on topical antibiotic for conjunctivitis. Exam overall patient is well-appearing. Normocephalic atraumatic. Normal tympanic membranes bilaterally. Normal external ears and canals. No mastoid tenderness. Mild injection of the oropharynx but normal tonsils. No exudate. Uvula is midline. No midline neck tenderness. Patient does have a tender to palpation over the left lateral neck and some associated lymphadenopathy. He also has what almost feels like some spasm of the sternocleidomastoid in that area. Patient does have baseline decreased range of motion of his neck from prior cervical through T2 spinal surgery. Patient does have wheezing but is in no respiratory distress and does not have increased work of breathing. Heart regular rate rhythm. Abdomen soft and nontender. I will check basic labs as patient is currently on chemotherapy as well as a chest x-ray and COVID test. Patient is given a DuoNeb for his wheezing. Is workup is largely negative did obtain CT soft tissue neck given that he does have increased pain of the left neck and concern for possible deep space infection. CT does not show any acute process and in fact shows atrophy of the left submandibular gland. Patient will be treated with steroids and doxycycline for concern of COPD exacerbation. Is given return precautions. Does not have any increased O2 demands and overall is well-appearing I do not think requires admission at this time. Other additions or changes: [None] Discharge Plan Triage Chief Complaint: Ear Problem Other Complaint: Eye Problem Sore Throat ED Midlevel Provider: Jeremy Che ED Provider: Odilia Urban Dx/Rx/DC Orders Clinical Impression: URI (upper respiratory infection), Acute exacerbation of chronic obstructive pulmonary disease, History of bladder cancer Instructions: Asthma COPD Trigger Control, ED URI, Viral W/ Wheezing (Adult) Prescriptions: New doxycycline hyclate 100 mg tablet 100 mg PO BID Qty: 14 0RF prednisone 50 mg tablet 50 mg PO DAILY Qty: 5 0RF No Action Prialt 100 mcg/mL solution 100 mcg continuous intrathecal infusion DAILY tamsulosin [Flomax] 0.4 mg capsule 0.4 mg PO DAILY prochlorperazine maleate 10 mg tablet 10 mg PO Q6H PRN (Reason: nausea and vomiting) Qty: 30 2RF lidocaine-prilocaine 2.5-2.5 % cream 1 applic topical ONCE PRN (Reason: port access) 30 Days Qty: 30 2RF nystatin 100,000 unit/mL suspension 500,000 unit PO TID Qty: 473 1RF Rx Instructions: administer 1/2 of dose in each side of the mouth ondansetron 8 mg tablet,disintegrating 8 mg PO Q8H PRN (Reason: nausea and vomiting) Qty: 30 2RF cyanocobalamin (vitamin B-12) 500 mcg tablet 500 mcg PO QDAY magnesium 250 mg tablet 250 mg PO QDAY polymyxin B sulf-trimethoprim 10,000 unit- 1 mg/mL drops 1 drp ophthalmic (eye) Q3H 7 Days Qty: 10 0RF Rx Instructions: while awake; do not exceed 6 doses in 24 hours ibuprofen 600 mg tablet 600 mg PO Q6H PRN (Reason: fever or pain) Qty: 20 0RF trazodone 100 mg tablet See Rx Instructions .ROUTE .COMPLEX Qty: 180 1RF Dose Instruction: TAKE 2 TABLETS BY MOUTH AT BEDTIME NEEDED FOR SLEEP Rx Instructions: TAKE 2 TABLETS BY MOUTH AT BEDTIME NEEDED FOR SLEEP Primary Care Provider: Aleksandr Duarte Referrals: Aleksandr Duarte, [Primary Care Provider] - Activity Restrictions/Additional Instructions: Please follow-up outpatient. Take the antibiotics and steroids. Print Language: Croatian Disposition Disposition: Home, Self Care Discharge Date/Time: 06/09/24 21:51
[2024-06-09 18:31] VITALS: PULSE 83; RESP 16
[2024-06-09] MEDS: Ipratropium/Albuterol Sulfate 3 ML AMPUL.NEB INHALATION (18:31)
[2024-06-09] MEDS: Albuterol 2.5 MG/3 ML VIAL.NEB. 5 MG INHALATION (18:31)
--- NOTE | 2024-06-09 18:51 | CPS ---
[1831] x2 Albuterol given to pt. in ER as well
--- NOTE | 2024-06-09 18:52 | RAD_ITS ---
STUDY: X-RAY CHEST REASON FOR EXAM: Male, 63 years old. cough TECHNIQUE: PA and lateral COMPARISON: None. FINDINGS: The lungs are clear and expanded. There is no demonstrated pleural abnormality. Normal size heart. Normal mediastinum and jaxson. Normal visualized pulmonary arteries. Normal visualized aortic arch and descending thoracic aorta. Mediport catheter seen on the left with tip in the right atrium Thoracic spine demonstrates mild degenerative changes. Normal visualized ribs, clavicles, and shoulders. There is no demonstrated abnormality of the visualized soft tissue structures of the upper abdomen. RAD/Chest PA and Lateral IMPRESSION: No acute cardiopulmonary pathology Electronically Signed: Xavier Naidu MD at 19:21 EDT ,
[2024-06-09 18:59] LABS: Anion Gap 7 (5-15); BUN 11 mg/dL (7-18); BUN/Creat Ratio 12.2 RATIO (10-20); Calcium,Total 7.9 mg/dL (8.5-10.1); Chloride 107 mmol/L (98-107); EST Glomerular Filtration Rate 91 mL/min (>60); Est Glom Filt Rate - Afr Amer 110 mL/min (>60); Estimated Creatinine Clearance 105.53 ml/min; Glucose 121 mg/dL (74-106); Potassium 3.3 mmol/L (3.5-5.1); Sodium Level 140 mmol/L (136-145)
[2024-06-09 19:50] VITALS: BP 125/66; PULSE 77; RESP 14; O2SAT 93
--- NOTE | 2024-06-09 19:56 | CT_ITS ---
INDICATION: neck swelling EXAMINATION: CT NECK WITH CONTRAST - CT Soft Tissue Neck W/ Contrast Injection TECHNIQUE: Helically acquired images were obtained of the neck following IV contrast. The protocol utilizes one or more of the following dose reduction techniques: automated exposure control, adjustment of mA and/or kV according to patient size,and/or use of iterative reconstruction technique. IV Contrast dosage and agent: 75 cc Isovue-370 RADIATION DOSAGE (If Supplied By Facility): CTDIvol = ( 16.56 ) mGy, DLP = ( 1125.54 ) mGycm COMPARISON: Prior study dated: 09/09/2021 FINDINGS: NASOPHARYNX: Unremarkable. SUPRAHYOID NECK: Unremarkable oropharynx, oral cavity, parapharyngeal space, and retropharyngeal space. INFRAHYOID NECK: Unremarkable larynx, hypopharynx, and supraglottis. THYROID: No focal lesions. SALIVARY GLANDS: Atrophy of the left submandibular gland with resulting asymmetry compared to the right. LYMPH NODES: No cervical or supraclavicular lymphadenopathy. VASCULAR STRUCTURES: Unremarkable. VISUALIZED PORTIONS OF THE ORBITS, PARANASAL SINUSES, MASTOID AIR CELLS AND SKULL BASE: Unremarkable. BONES: Stable changes from anterior and posterior cervical fusion with hardware. THORACIC INLET: Clear lung apices. CT/Soft Tissue Neck WITH Contrast IMPRESSION: No acute findings in the neck. Asymmetry of the submandibular glands with significant atrophy of the left submandibular gland. Electronically Signed: Armando Vargas MD at 21:21 EDT ,
[2024-06-09] MEDS: Ketorolac 15 MG/ML Vial IV (20:01)
[2024-06-09 20:59] LABS: Absolute Lymphocyte Count 0.68 X10^3/uL (0.83-4.51); Absolute Neutrophil Count 2.7 X10^3/uL (2.0-7.7); Basophil# 0.01 X10^3/uL; Basophil% 0.3 % (0-1); Eosinophil# 0.01 X10^3/uL; Eosinophils% 0.3 % (0-5); Hematocrit 23.1 % (40-54); Hemoglobin 7.9 g/dL (13.0-16.5); Lymphocyte # 0.68 X10^3/ul (0.83-4.51); Lymphocyte % 18.6 % (19-41); Mean Corp Hgb Conc 34.2 g/dL (32-36); Mean Corpuscular Volume 93.5 fL (80-94); Mean Platelet Vol. 9.3 fl (6.2-12.0); Monocyte# 0.22 X10^3/uL; NRBC Flagged by Analyzer 1.9 % (0-5); Neutrophil # 2.66 X10^3/uL (2.7-7.7); Neutrophil % 72.9 % (47-70); POSITIVE COUNT YES; Platelet Count 78 K/mm3 (150-450); RBC Distribution Width CV 18.2 % (11.6-14.6); RBC Distribution Width SD 53.1 fl (35.1-43.9); Red Blood Count 2.47 M/mm3 (4.6-6.2); White Blood Count 3.7 K/mm3 (4.4-11.0)
[2024-06-09 21:00] VITALS: BP 115/74; PULSE 79; RESP 18; O2SAT 95
[2024-06-09 21:00] LABS: Differential Indicated SCAN CRITERIA MET
[2024-06-09 21:03] LABS: Anisocytosis 2+; Differential Comment SCANNED; Polychromasia 1+
[2024-06-09 21:05] LABS: Platelet Estimate MOD DEC (ADEQ)
[2024-06-09 21:40] VITALS: BP 115/74; PULSE 79; RESP 18; TEMP 36.2; O2SAT 95
[2024-06-09] MEDS: Doxycycline 100 MG CAPSULE PO (21:45)
== END 2024-06-09 21:51 | disposition home or self-care (01) ==
PROVIDERS: Nurse Practitioner; Emergency Provider Emergency Medicine; PCP Family Medicine; Visit Provider Emergency Medicine
DX: J06.9 Acute upper respiratory infection, unspecified (principal); C67.9 Malignant neoplasm of bladder, unspecified; J44.1 Chronic obstructive pulmonary disease with (acute) exacerbation; E11.9 Type 2 diabetes mellitus without complications; E83.119 Hemochromatosis, unspecified; H10.9 Unspecified conjunctivitis; I10 Essential (primary) hypertension; E78.5 Hyperlipidemia, unspecified; F17.210 Nicotine dependence, cigarettes, uncomplicated; Z86.711 Personal history of pulmonary embolism; Z88.1 Allergy status to other antibiotic agents; Z88.5 Allergy status to narcotic agent; Z88.8 Allergy status to other drugs, medicaments and biological substances; Z79.899 Other long term (current) drug therapy
CPT/HCPCS: 36591; 70491; 71046; 80048; 85025; 87631; 94640; 96374; 99283; A4216

== ENCOUNTER 2024-06-14 11:46 | Emergency (ER) | payer OTHER, MEDICARE, SELFPAY ==
[2024-06-14] VITALS (9 sets, daily range): BP systolic 145; BP diastolic 70; PULSE 45–77; RESP 10–18; TEMP 36.6–36.9; O2SAT 95–98; BMI 31.9
--- NOTE | 2024-06-14 12:27 | EKG12_ITS ---
Test Reason : SOB Blood Pressure : / mmHG Vent. Rate : 047 BPM Atrial Rate : 047 BPM P-R Int : 144 ms QRS Dur : 094 ms QT Int : 416 ms P-R-T Axes : 067 052 045 degrees QTc Int : 368 ms Sinus bradycardia Otherwise normal ECG Confirmed by Michael Soto ([id number]), vice president corporate communications DEAVNTE GOLDEN ([id number]) on 06/16/2024 9:37:37 AM Referred By: UBALDO/CELESTE Confirmed By:Michael Soto
--- NOTE | 2024-06-14 12:27 | CT_ITS ---
STUDY: CT ABDOMEN AND PELVIS WITH CONTRAST REASON FOR EXAM: Male, 63 years old. Lower abdominal pain. BROUGHT FROM [facility] FOR DY[facility]NE[facility], CHEST TIGHTNESS, HEMATURIA, DYSURIA. BLADDER, CA, LAST CHEMO 06/12, DUE TODAY FOR NEXT INFUSION. STATES HEART RATE IS UNUSUALLY LOW TOO RADIATION DOSAGE (If Supplied By Facility): CTDIvol = ( 23.98 ) mGy, DLP = ( 1830.44 ) mGycm TECHNIQUE: Transaxial images were obtained from the dome of the diaphragm to the symphysis pubis without oral contrast. ml of 100mL Isovue-370 contrast was administered. Sagittal and coronal images were reconstructed. Individualized dose optimization techniques were used for this CT. COMPARISON: CT of abdomen and pelvis dated December 02, 2023 FINDINGS: * Interval appearance of mild biliary ductal dilatation and periportal edema throughout the biliary tree of the liver as well as mild inflammatory stranding in the gallbladder fossa and around the CBD, consistent with acute cholangitis. No radiopaque CBD stone or mass or portal hepatal malignant process is seen. * Normal liver size and contour * No liver masses or cirrhotic changes * Mild portal vein hypertension and increased venous varices of the abdomen since the last study * Moderate to significant acute cystitis with surrounding inflammatory stranding and edema and thickening of the bladder wall, sparing the anterior aspect. Redemonstration of calcifications in the right side of the bladder wall and floor. No high density hemorrhage is seen in the bladder lumen. * No visualized enhancing mass or obvious intraluminal mass within the bladder lumen to suggest recurrent disease, however cystoscopy and direct urologic evaluation and perhaps tissue sampling may be required for definitive diagnosis, alternatively correlation with PET/CT imaging can be performed. * Redemonstration of surgical clips and changes of the lower pelvic wall intrapelvic regions from prior surgical intervention * No free air or abscess * No pneumatosis of bowel wall thickening or inflammation There are surgical clips in the gallbladder fossa consistent with a prior cholecystectomy. Normal spleen. Normal pancreas. Normal bilateral adrenal glands. Normal right kidney. Normal left kidney. No hydronephrosis or renal masses. Normal visualized stomach. Normal small intestine. There are multiple colonic diverticula consistent with diverticulosis. There is non-visualization of the appendix. Normal abdominal aorta. Normal inferior vena cava. Normal retroperitoneum. Normal abdominal wall. There are diffuse degenerative changes of the visualized lumbar spine. CT/Abdomen/Pelvis W IV Cont ONLY IMPRESSION: 1. Moderate to significant acute cystitis with significant surrounding inflammation around the bladder 2. Wall thickening in the bladder is circumferential and likely due to chronic inflammation and prior treatment for malignancy, definitive diagnosis for recurrent malignancy will have to be determined by urology/cystoscopy and pathologic tissue sampling or correlation with PET/CT. 3. Acute cholangitis most likely inflammatory or infectious in nature. No visualized malignancy or stones or liver abscess 4. Interval development of portal vein hypertension Electronically Signed: Kamron Cueto MD at 14:15 EDT ,
--- NOTE | 2024-06-14 12:27 | CT_ITS ---
STUDY: CTA CHEST REASON FOR EXAM: Male, 63 years old. sob, hx of cancer BROUGHT FROM [facility] DY[facility]A, CHEST TIGHTNESS, HEMATURIA, DYSURIA. BLADDER, [place], LAST CHEMO 06/12, DUE TODAY FOR NEXT INFUSION. STATES HEART RATE IS UNUSUALLY LOW TOO RADIATION DOSAGE (If Supplied By Facility): CTDIvol = ( 23.98 ) mGy, DLP = ( 1830.44 ) mGycm TECHNIQUE: The examination was performed with the intravenous administration of IV 100mL Isovue-370. Post-processing of the angiographic images was performed, with multiplanar reformation and 3D reconstruction. Individualized dose optimization techniques were used for this CT. COMPARISON: CT of abdomen and pelvis dated February 01, 2024. Chest x-ray dated June 09, 2024. CT of the chest dated March 20, 2024 FINDINGS: * Mild cystic emphysematous changes and chronic interstitial thickening/lung disease. No visualized nodules or masses or spiculated lesions. No active pulmonary edema or pneumonic consolidation or infiltrates. No pleural effusion or pneumothorax is seen * No pathologic mediastinal lymphadenopathy * No coronary artery calcifications * Left chest port with the catheter terminating in the right atrium. * No lytic or blastic lesions of the bony structures * No pulmonary artery emboli * No aortic dissection or aneurysmal dilatation * No active arterial hemorrhaging * Normal trachea and bilateral mainstem bronchi * No pericardial effusion. Normal enhancement of the main pulmonary artery and right and left pulmonary arteries. Normal enhancement of the bilateral peripheral pulmonary arteries. There is no demonstrated pulmonary embolism. Normal thoracic aorta and visualized great vessels. There is no demonstrated aortic dissection. Normal heart and pericardium. Normal mediastinum. Normal hilar regions. Normal visualized trachea and bronchi. The lungs are hyper expanded, with flattening of the hemidiaphragms. Normal chest wall structures. There are degenerative changes of thoracic spine. Included upper abdomen: Unremarkable CT/CTA Chest W/WO Contrast IMPRESSION: 1. Negative CTA chest examination, without a demonstrated pulmonary embolism or arterial dissection. 2. Mild cystic emphysematous changes and chronic interstitial thickening/lung disease. No visualized nodules or masses or spiculated lesions. No active pulmonary edema or pneumonic consolidation or infiltrates. No pleural effusion or pneumothorax is seen Electronically Signed: Kamron Cueto MD at 13:56 EDT Reading Location ID and State: [facility] / [place] , Service support ,
--- NOTE | 2024-06-14 12:37 | EX.ED.DYSGE1 ---
HPI History of Present Illness Chief Complaint: Shortness of Breath Narrative Narrative: Patient is a 63-year-old male with past medical history of bladder cancer undergoing active chemotherapy and is supposed to have surgery at [facility] coming up for resection, COPD, hemochromatosis, cirrhosis who presents to the emergency department the chief complaint of shortness of breath, painful urination, low heart rate. He states that he was at his infusion center today and had the complaints as noted above and they sent him here for further evaluation management. Patient states that he has had increased swelling in his lower extremities as well as worsening shortness of breath on exertion. Patient states that is very painful for him to urinate. He states on Wednesday he was checked for urinary tract infection which was negative [facility] Medical History Hypomagnesemia Oral candidiasis Encounter for education Pain of intrathecal infusion pump pocket after insertion Wears dentures Wears glasses Cancer Kidney stones Pulmonary embolism Migraine headache Injury of head and neck History of IBS COPD (chronic obstructive pulmonary disease) History of rheumatic fever Tobacco use disorder, continuous Encounter for screening for malignant neoplasm of lung Night sweats Unintentional weight loss Insomnia Tobacco use disorder, continuous Glossopharyngeal neuralgia Nausea Abdominal pain Depression Hypertension Carpal tunnel syndrome on both sides Lupus Bladder cancer Hypercoagulable state Hereditary hemochromatosis PORT PLACEMENT History of pulmonary embolus (PE) Cirrhosis Home Medications ?Medication ?Instructions ?Recorded ?Last Taken ?Type ziconotide 100 mcg/mL intrathecal 100 mcg continuous intrathecal 08/25/22 11/05/22 History solution (Prialt) infusion DAILY pain trazodone 100 mg tablet See Rx Instructions .Route 02/02/23 Unknown Rx .COMPLEX #180 TABLETS ibuprofen 600 mg tablet 600 mg PO Q6H PRN fever or pain 02/25/24 Unknown Rx #20 tabs tamsulosin 0.4 mg capsule (Flomax) 0.4 mg PO DAILY 03/29/24 04/09/24 History lidocaine-prilocaine 2.5 %-2.5 % 1 applic topical ONCE PRN port 04/04/24 Unknown Rx topical cream access 30 days #30 grams prochlorperazine maleate 10 mg 10 mg PO Q6H PRN nausea and 04/04/24 Unknown Rx tablet vomiting #30 tabs nystatin 100,000 unit/mL oral 500,000 unit (5 mL) PO TID #473 mL 04/17/24 Unknown Rx suspension ondansetron 8 mg disintegrating 8 mg PO Q8H PRN nausea and 05/24/24 Unknown Rx tablet vomiting #30 tabs cyanocobalamin (vitamin B-12) 500 500 mcg PO QDAY 05/29/24 Unknown History mcg tablet magnesium 250 mg tablet 250 mg PO QDAY 05/29/24 Unknown History polymyxin B sulfate 10,000 1 drp ophthalmic (eye) Q3H 7 days 06/08/24 Unknown Rx unit-trimethoprim 1 mg/mL eye drops #10 mL doxycycline hyclate 100 mg tablet 100 mg PO BID #14 tabs 06/09/24 Unknown Rx prednisone 50 mg tablet 50 mg PO DAILY #5 tabs 06/09/24 Unknown Rx ciprofloxacin HCl 500 mg tablet 500 mg PO BID 5 days #10 tabs 06/14/24 Unknown Rx Allergy/AdvReac Type Severity Reaction Status Date / Time lorazepam (From Ativan) Allergy Severe Other Verified 06/14/24 11:50 cephalexin (From Keflex) AdvReac Severe Nausea/Vom/ Verified 06/14/24 11:50 Diarrhea fluoxetine HCl (From Prozac) AdvReac Severe Vomiting Verified 06/14/24 11:50 morphine AdvReac Severe Rash Verified 06/14/24 11:50 oxycodone AdvReac Severe Hives Verified 06/14/24 11:50 pregabalin (From Lyrica) AdvReac Severe hypotension Verified 06/14/24 11:50 duloxetine (From Cymbalta) AdvReac NEEDS Verified 06/14/24 11:50 FOLLOW-UP Family History Father Prostate cancer Heart disease Grandfather Diabetes Grandmother Diabetes Mother Hypertension Heart disease Sister Hypertension Sisters x2 Surgical History Hx of tonsillectomy H/O toe surgery H/O repair of rotator cuff H/O brain surgery Hx of cystoscopy History of removal of Port-a-Cath History of carpal tunnel surgery of left wrist History of carpal tunnel surgery of right wrist History of spinal fusion History of cholecystectomy History of appendectomy History of deviated nasal septum Social History Smoking Status: Current every day smoker tobacco type: cigarettes Tobacco: How many years used: 42 Smokeless tobacco user: other Electronic Cigarette Use: not used second hand exposure: Yes quit status: not considering quitting alcohol intake: never substance use type: does not use what type of physical activity do you participate in: none seatbelt use: always do you feel safe at home: Yes ROS ROS ED ROS Narrative Constitutional: Denies fevers, chills, headaches Eyes: Denies change in vision double vision blurry vision Cardiovascular: Complains of chest tightness and denies any palpitations Respiratory: Complaint shortness of breath as noted above denies any increase sputum production Abdomen: Complains of lower abdominal pain denies nausea vomit diarrhea : Complains of painful urination and increased frequency of urinating Neurological: Denies numbness, weakness, tingling Musculoskeletal: Denies back pain Skin: Denies rashes or lesions EXAM Physical Exam Narrative Exam Narrative: General: Patient lying in bed rest comfortably did not appear to be in acute distress Head: Atraumatic, normocephalic Eyes: PERRL bilaterally, EOMI bilaterally, no conjunctival injection noted Neck: Soft, supple, trach midline Cardiovascular: Patient was bradycardic with a regular rhythm no murmurs gallops rubs noted Respiratory: Coarse breath sounds bilaterally no wheezing noted Abdomen: Soft, nondistended, tenderness palpation in the suprapubic region no rebound or guarding on exam Extremities: +5/5 strength noted in the bilateral upper and lower extremities, patient has 2+ pitting edema in the bilateral lower extremities Neurological: Patient follow commands knew that he was at [facility] year is 2023 Skin: Warm, dry, intact Const Vital Signs: 06/14/24 11:47 06/14/24 12:36 06/14/24 12:37 Temperature 98.4 F Temperature Source Oral Pulse Rate 47 L Respiratory Rate 16 Respiratory Effort Normal Non-Labored Respiratory Depth Normal Respiratory Pattern Normal Blood Pressure 145/70 H Blood Pressure Mean 95 Pulse Ox 97 Oxygen Delivery Method Room Air Room Air Room Air 06/14/24 12:50 06/14/24 13:00 06/14/24 14:00 Temperature Temperature Source Pulse Rate 46 L 45 L 51 L Respiratory Rate 15 14 10 L Respiratory Effort Respiratory Depth Respiratory Pattern Blood Pressure Blood Pressure Mean Pulse Ox 96 95 96 Oxygen Delivery Method Room Air Room Air Room Air 06/14/24 15:00 06/14/24 16:00 Temperature Temperature Source Pulse Rate 45 L 45 L Respiratory Rate 16 15 Respiratory Effort Respiratory Depth Respiratory Pattern Blood Pressure Blood Pressure Mean Pulse Ox 98 96 Oxygen Delivery Method Room Air Room Air MDM MDM MDM Narrative Medical decision making narrative: Patient is a 63-year-old male who presents to the emerged part with chief complaint of dyspnea on exertion, bilateral lower extremity swelling, painful urination. Patient will have workup performed here on the differential diagnose includes but not limited to CHF, ACS, pulmonary embolism, upper respiratory infection second of ideology, urinary tract infection. Once workup is obtained reviewed he will be reevaluated. Patient CBC was reviewed and showed a white blood count of 2.3 this is around his baseline according previous blood draws, hemoglobin of 7.8, platelet count was noted to be 203., INR normal at 1.1, PT normal at 13.9, sodium normal 139, potassium normal at 4, creatinine normal at 0.85. Patient's magnesium level was noted be 1.2, he had previous blood draw 1.4, AST and ALT were 15 and 32 respectively. He will be given magnesium supplementation. 2 g. Patient proBNP elevated to 138, troponin was noted be normal at 5 with a delta troponin obtained normal at 4, EKG reviewed and showed sinus bradycardia. Patient's urinalysis showed negative nitrates 25 leukocyte esterase 0-5 white cells no bacteria seen however the patient appears to be very symptomatic with painful urination therefore he will be given a gram Rocephin and he will be given a prescription for ciprofloxacin for suspected cystitis his urine will be sent for culture. Patient's CTA of his chest was reviewed and showed no acute evidence of pulmonary embolism or arterial dissection there is mild cystic emphysematous changes and chronic interstitial thickening/lung disease no visualized nodules or masses or spiculated lesions. No active pulmonary edema or pneumonic consolidative processes or infiltrates no pleural effusions or pneumothorax seen. Patient CT abdomen pelvis with IV contrast reviewed and showed moderate to significant acute cystitis with significant surrounding inflammation around the bladder. Acute cholangitis most likely inflammatory or infectious in nature no visualized malignancy or stones or liver abscesses. I discussed this result with on-call general surgeon Dr. Wagner who reviewed the imaging and believes that the patient does not have acute cholangitis. Patient was ambulated here in the emergency department his heart rate was within normal range she had no evidence hypoxia tolerated this well with no complications. Did discuss results with the patient and he would like to go home at this point in time. He was advised take antibiotics as prescribed and return with worsening symptoms or other concerns. He is to follow-up with his primary care physician in the outpatient setting. He is follow-up with his hematology oncology team as well. His significant other at bedside is also agreeable with this plan all question concerns answered he was discharged home in stable condition. Lab Data Labs: Laboratory Results - last 24 hr 06/14/24 06/14/24 06/14/24 12:32 12:37 14:35 WBC 2.3 L RBC 2.36 L Hgb 7.8 L Hct 23.3 L MCV 98.7 H MCH 33.1 H MCHC 33.5 RDW Std Deviation 67.5 H RDW Coeff of Marlene 20.0 H Plt Count 203 MPV 9.0 Immature Gran % (Auto) 1.300 H Neut % (Auto) 78.4 H Lymph % (Auto) 10.8 L [place] % (Auto) 9.5 Eos % (Auto) 0.0 Baso % (Auto) 0.0 Absolute Neuts (auto) 1.8 L Absolute Lymphs (auto) 0.25 L Nucleated RBC % 0 Differential Comment SCANNED Anisocytosis 2+ PT 13.9 INR 1.1 APTT 29.5 Sodium 139 Potassium 4.0 Chloride 108 H Carbon Dioxide 26.0 Anion Gap 5 BUN 28 H Creatinine 0.85 Est GFR (MDRD) Af Amer 117 Est GFR (MDRD) Non-Af 97 BUN/Creatinine Ratio 32.8 H Glucose 129 H Calcium 8.3 L Magnesium 1.2 L Total Bilirubin 0.50 Direct Bilirubin 0.14 AST 15 ALT 32 Alkaline Phosphatase 76 Troponin I High Sens 5 4 B-Natriuretic Peptide 138.8 H Total Protein 5.8 L Albumin 2.9 L Globulin 2.9 Urine Color Yellow Urine Clarity Clear Urine pH 6.0 Ur Specific [place] 1.020 Urine Protein 30 H Urine Glucose (UA) Normal Urine Ketones Negative Urine Occult Blood 250 H Urine Nitrite Negative Urine Bilirubin Negative Urine Urobilinogen Normal Ur Leukocyte Esterase 25 H Urine RBC 10-25 SEEN Urine WBC 0-5 SEEN Ur Squamous Epith Cells 0-5 SEEN Urine Bacteria 0 SEEN Urine Mucus 0 SEEN Radiography Diagnostic Testing: Clinical Impression(s) from Imaging Studies Abdomen/Pelvis CT 06/14/24 12:27 IMPRESSION: 1. Moderate to significant acute cystitis with significant surrounding inflammation around the bladder 2. Wall thickening in the bladder is circumferential and likely due to chronic inflammation and prior treatment for malignancy, definitive diagnosis for recurrent malignancy will have to be determined by urology/cystoscopy and pathologic tissue sampling or correlation with PET/CT. 3. Acute cholangitis most likely inflammatory or infectious in nature. No visualized malignancy or stones or liver abscess 4. Interval development of portal vein hypertension Electronically Signed: Kamron Cueto MD at 14:15 EDT , Chest CTA 06/14/24 12:27 IMPRESSION: 1. Negative CTA chest examination, without a demonstrated pulmonary embolism or arterial dissection. 2. Mild cystic emphysematous changes and chronic interstitial thickening/lung disease. No visualized nodules or masses or spiculated lesions. No active pulmonary edema or pneumonic consolidation or infiltrates. No pleural effusion or pneumothorax is seen Electronically Signed: Kamron Cueto MD at 13:56 EDT , Discharge Plan Triage Chief Complaint: Shortness of Breath Other Complaint: Complaint ED Provider: Gene Araiza Dx/Rx/DC Orders Clinical Impression: Urinary tract infection, Polyuria, Hypomagnesemia Prescriptions: New ciprofloxacin HCl 500 mg tablet 500 mg PO BID 5 Days Qty: 10 0RF No Action Prialt 100 mcg/mL solution 100 mcg continuous intrathecal infusion DAILY tamsulosin [Flomax] 0.4 mg capsule 0.4 mg PO DAILY prochlorperazine maleate 10 mg tablet 10 mg PO Q6H PRN (Reason: nausea and vomiting) Qty: 30 2RF lidocaine-prilocaine 2.5-2.5 % cream 1 applic topical ONCE PRN (Reason: port access) 30 Days Qty: 30 2RF nystatin 100,000 unit/mL suspension 500,000 unit PO TID Qty: 473 1RF Rx Instructions: administer 1/2 of dose in each side of the mouth ondansetron 8 mg tablet,disintegrating 8 mg PO Q8H PRN (Reason: nausea and vomiting) Qty: 30 2RF cyanocobalamin (vitamin B-12) 500 mcg tablet 500 mcg PO QDAY magnesium 250 mg tablet 250 mg PO QDAY polymyxin B sulf-trimethoprim 10,000 unit- 1 mg/mL drops 1 drp ophthalmic (eye) Q3H 7 Days Qty: 10 0RF Rx Instructions: while awake; do not exceed 6 doses in 24 hours ibuprofen 600 mg tablet 600 mg PO Q6H PRN (Reason: fever or pain) Qty: 20 0RF doxycycline hyclate 100 mg tablet 100 mg PO BID Qty: 14 0RF prednisone 50 mg tablet 50 mg PO DAILY Qty: 5 0RF trazodone 100 mg tablet See Rx Instructions .ROUTE .COMPLEX Qty: 180 1RF Dose Instruction: TAKE 2 TABLETS BY MOUTH AT BEDTIME NEEDED FOR SLEEP Rx Instructions: TAKE 2 TABLETS BY MOUTH AT BEDTIME NEEDED FOR SLEEP Primary Care Provider: Aleksandr Duarte Referrals: Aleksandr Duarte, DO [Primary Care Provider] - Activity Restrictions/Additional Instructions: Follow-up with your doctor in the outpatient setting. Follow-up with your urine culture results. Return for worsening symptoms or other concerns as we discussed here. Take antibiotics as prescribed. Print Language: Trinidadian Disposition Disposition: Home, Self Care
[2024-06-14 12:41] LABS: Bacteria 0 SEEN /hpf (None Seen); Mucous, Urine 0 SEEN /hpf (<or=2+)
[2024-06-14 12:43] LABS: Color, Urine Yellow (Yellow); Glucose, Dipstick Normal (Normal); Ketone-Dipstick Negative (Negative); Leukocyte Esterase-Dipstick 25 /ul (Negative); Nitrite-Dipstick Negative (Negative); Occult Blood-Urine 250 /ul (Negative); Protein-Dipstick 30 mg/dl (Negative); Urine Bilirubin Dipstick Negative (Negative); Urine Clarity Clear (Clear); Urine Urobilinogen Normal (Normal)
[2024-06-14 12:44] LABS: Absolute Lymphocyte Count 0.25 X10^3/uL (0.83-4.51); Absolute Neutrophil Count 1.8 X10^3/uL (2.0-7.7); Hematocrit 23.3 % (40-54); Hemoglobin 7.8 g/dL (13.0-16.5); Lymphocyte # 0.25 X10^3/ul (0.83-4.51); Lymphocyte % 10.8 % (19-41); Mean Corp Hgb Conc 33.5 g/dL (32-36); Mean Corpuscular Hgb 33.1 pg (27.0-32.0); Mean Corpuscular Volume 98.7 fL (80-94); Monocyte# 0.22 X10^3/uL; Monocyte% 9.5 % (0-10); NRBC Flagged by Analyzer 0 % (0-5); Neutrophil # 1.82 X10^3/uL (2.7-7.7); Neutrophil % 78.4 % (47-70); POSITIVE DIFFERENTIAL YES; POSITIVE MORPHOLOGY YES; Platelet Count 203 K/mm3 (150-450); RBC Distribution Width SD 67.5 fl (35.1-43.9); Red Blood Count 2.36 M/mm3 (4.6-6.2); White Blood Count 2.3 K/mm3 (4.4-11.0)
[2024-06-14 12:45] LABS: Differential Indicated SCAN CRITERIA MET
[2024-06-14 12:50] LABS: Red Blood Cells-Urine 10-25 SEEN /hpf (0-5); Squamous Epithelial Cells - UA 0-5 SEEN /hpf (0-5); White Blood Cells 0-5 SEEN /hpf (0-5)
[2024-06-14 12:53] LABS: International Normalized Ratio 1.1; Prothrombin Time (Protime)PT. 13.9 SECONDS (11.7-14.9)
[2024-06-14 12:54] LABS: Partial Thromboplast Time 29.5 Seconds (24.1-36.2)
[2024-06-14 13:01] LABS: Anion Gap 5 (5-15); BUN 28 mg/dL (7-18); BUN/Creat Ratio 32.8 RATIO (10-20); Calcium,Total 8.3 mg/dL (8.5-10.1); Chloride 108 mmol/L (98-107); Creatinine, Serum 0.85 mg/dL (0.70-1.30); EST Glomerular Filtration Rate 97 mL/min (>60); Est Glom Filt Rate - Afr Amer 117 mL/min (>60); Glucose 129 mg/dL (74-106); Magnesium 1.2 mg/dL (1.6-2.6); Sodium Level 139 mmol/L (136-145); Troponin-I HS (w/2H Reflex) 5 pg/mL (3.0-78.0)
[2024-06-14 13:02] LABS: Anisocytosis 2+; BNP,B-Type NATRIURETIC PEPTIDE 138.8 pg/mL (0-100); Differential Comment SCANNED
[2024-06-14 14:40] LABS: Reflex Troponin-HS? (from REC) Y
[2024-06-14 14:47] LABS: AST(SGOT) 15 U/L (15-37); Alanine Aminotransfer ALT/SGPT 32 U/L (16-61); Albumin, Serum 2.9 g/dL (3.2-5.0); Alkaline Phosphatase 76 U/L (45-117); Bilirubin, Direct 0.14 mg/dL (0.00-0.30); Globulin 2.9 g/dL (2.2-4.2); Protein, Total 5.8 g/dL (6.4-8.2)
[2024-06-14] MEDS: fentaNYL 100 MCG/2 ML Ampul 50 MCG IV (14:57)
[2024-06-14] MEDS: Ondansetron 4 MG/2 ML Vial IV (14:57)
[2024-06-14 15:06] LABS: Troponin-I HS 4 pg/mL (3.0-78.0)
[2024-06-14] MEDS: Ceftriaxone 1 GM/50 ML BAG IV (17:06)
== END 2024-06-14 17:51 | disposition home or self-care (01) ==
PROVIDERS: Emergency Provider Emergency Medicine; PCP Family Medicine; Visit Provider Emergency Medicine
DX: N39.0 Urinary tract infection, site not specified (principal); K74.60 Unspecified cirrhosis of liver; C67.9 Malignant neoplasm of bladder, unspecified; J44.9 Chronic obstructive pulmonary disease, unspecified; E83.42 Hypomagnesemia; F17.210 Nicotine dependence, cigarettes, uncomplicated; R06.02 Shortness of breath; G47.00 Insomnia, unspecified; E83.110 Hereditary hemochromatosis; Z53.20 Procedure and treatment not carried out because of patient's decision for unspecified reasons; Z88.1 Allergy status to other antibiotic agents; Z88.5 Allergy status to narcotic agent; Z86.711 Personal history of pulmonary embolism; Z87.442 Personal history of urinary calculi
CPT/HCPCS: 71275; 74177; 80048; 80076; 81001; 83735; 83880; 84484; 85025; 85610; 85730; 87086; 93005; 96365; 96375; 96376; 99284; J7050; Q9967; A4216; J2405

== ENCOUNTER → 2024-06-30 | Outpatient (CLI) | payer OTHER, MEDICARE, SELFPAY ==
--- NOTE | 2024-06-30 08:54 | NM_ITS ---
CLINICAL: 63-year-old male with history of carcinoma of the urinary bladder. WHOLE BODY 99m Tc MDP RADIONUCLIDE BONE SCINTIGRAPHY COMPARISON: Previous whole body bone scintigraphy study dated 03/27/2024 FINDINGS: Following the intravenous administration of 27.8 mCi of 99m Tc MDP, whole body bone images reveal: 1. Enhanced radiopharmaceutical concentration is demonstrated in the acromioclavicular compartment of the right shoulder, sternoclavicular compartments of both shoulders, the left wrist, the knees bilaterally, right-left mid and forefoot the first and 12th thoracic vertebra. 2. Increased uptake remains apparent in the left proximal humeral metaphysis. 3. The remaining skeletal structures are scintigraphically unremarkable with normal-appearing renal images and urinary bladder activity identified. NM/Bone Scan Whole Body IMPRESSION: 1. The increase in tracer uptake noted in the bilateral shoulders, left wrist, both knee articulations, thoracic spine, the midfoot and forefoot bilaterally is commensurate with degenerative arthritis. 2. Enhanced uptake noted in the left proximal humeral metaphysis is most consistent with degenerative arthrosis. 3. Overall compared to the previous whole body bone scintigraphy study dated 03/27/2024, there is no scintigraphic evidence of diffuse skeletal metastatic disease with minimal interval change. Electronically Signed: Quinn Márquez DO at 13:49 EDT ,
== END | disposition home or self-care (01) ==
LOC: NM 08:50
PROVIDERS: PCP Family Medicine; Referring Provider Internal Medicine Hematology & Oncology; Visit Provider Internal Medicine Hematology & Oncology
DX: C67.2 Malignant neoplasm of lateral wall of bladder (principal)
CPT/HCPCS: 78306; A9503

== ENCOUNTER → 2024-07-03 | Outpatient (CLI) | payer OTHER, MEDICARE, SELFPAY ==
--- NOTE | 2024-07-03 15:54 | VDLE_ITS ---
Reason For Study: BLE Swelling RIGHT LEFT GSV is normal. GSV is normal. CFV is compressible, spontaneous, phasic, CFV is compressible, spontaneous, phasic, competent and demonstrates normal competent, and demonstrates normal augmentation. augmentation. FV is compressible, spontaneous, phasic, FV is compressible, spontaneous, phasic, competent and demonstrates normal competent and demonstrates normal augmentation. augmentation. POP V is compressible, spontaneous, phasic, POP V is compressible, spontaneous, phasic, competent and demonstrates normal competent and demonstrates normal augmentation. augmentation. T/P Trunk is compressible. T/P Trunk is compressible. PTV is compressible. PTV is compressible. RT PerV is compressible. LT PerV is compressible. Procedure This is a venous duplex using B-mode, color flow and spectral Doppler. Exam performed in department. The exam was diagnostic. A preliminary report was called and/or faxed to [facility] Oncology. VL/Venous Duplex US - [place] Extrem Interpretation Summary Deep veins of the bilateral lower extremities are patent and compressible segme ntally. There is no evidence of bilateral lower extremity deep vein thrombosis. The bilateral great saphenous veins appear patent and compressible segmentally. Ordering Physician: Minerva Corley Referring Physician: Guillaume Duarte M.D. Performed By: Donato Suarez RVT
== END | disposition home or self-care (01) ==
PROVIDERS: PCP Family Medicine; Referring Provider Nurse Practitioner Family; Visit Provider Nurse Practitioner Family
DX: M79.89 Other specified soft tissue disorders (principal)
CPT/HCPCS: 93970

== ENCOUNTER → 2024-07-18 | Outpatient (CLI) | payer OTHER, MEDICARE, SELFPAY ==
--- NOTE | 2024-07-18 08:48 | ECHOD_ITS ---
Reason For Study: PRE-OP SURGERY Procedure This was a 2D Doppler, Color Flow transthoracic echocardiogram. Exam performed in department. Left Ventricle Normal LV size. The left ventricular ejection fraction is 55 %. No regional wall motion abnormalities noted. Right Ventricle Normal RV size. Normal systolic function. Atria Normal left atrium. Normal right atrium. Mitral Valve Normal mitral valve. Tricuspid Valve Normal tricuspid valve. Mild tricuspid valve insufficiency. Pulmonary artery systolic pressure is 28 mmHg. Aortic Valve Trisinus/trileaflet aortic valve. Pulmonic Valve Normal pulmonic valve. Great Vessels Normal aortic root. The pulmonary artery is normal size. Inferior vena cava collapse with sniff. Pericardium/Pleural No pericardial effusion. MMode/2D Measurements & Calculations LVIDd: 4.6 cm IVSd: 1.1 cm LVOT diam: 2.2 cm LVIDs: 3.1 cm LVPWd: 1.0 cm LVOT area: 3.9 cm2 RVDd: 3.6 cm FS: 32.6 % asc Aorta Diam: 3.6 cm LAV(MOD-bp): 42.6 ml LVAd ap4: 29.5 cm2 LAV(MOD-bp) Indexed: 19.6 ml/m2 LVLd ap4: 8.1 cm LAV(MOD-sp2): 46.9 ml EDV(MOD-sp4): 90.4 ml LAV(MOD-sp4): 37.0 ml EDV(sp4-el): 90.9 ml LVAs ap4: 18.1 cm2 LVLs ap4: 7.1 cm ESV(MOD-sp4): 38.4 ml ESV(sp4-el): 39.2 ml EF(MOD-sp4): 57.5 % EF(sp4-el): 56.9 % LVAd ap2: 29.3 cm2 SV(MOD-sp4): 52.0 ml SV(MOD-sp2): 47.1 ml LVLd ap2: 8.4 cm SI(MOD-sp4): 23.9 ml/m2 SI(MOD-sp2): 21.6 ml/m2 EDV(MOD-sp2): 85.5 ml EDV(sp2-el): 86.5 ml LVAs ap2: 18.2 cm2 LVLs ap2: 7.4 cm ESV(MOD-sp2): 38.4 ml ESV(sp2-el): 37.7 ml EF(MOD-sp2): 55.1 % SV(sp4-el): 51.7 ml Ao sinus diam: 3.[address] Junction: 3.3 cm LA dimension(2D): 3.2 cm LA A4 area: 15.7 cm2 RA A4 area: 12.6 cm2 TAPSE: 2.2 cm Time Measurements MV dec time: 0.20 sec Doppler Measurements & Calculations MV E max tong: 81.7 cm/sec Lat Peak E' Tong: 13.2 cm/sec Med Peak E' Tong: 7.6 cm/sec MV A max tong: 84.3 cm/sec E/E' lat: 6.2 E/E' med: 10.8 MV E/A: 0.97 MV dec slope: 402.7 cm/sec2 Ao V2 max: 113.1 cm/sec LV V1 max: 90.6 cm/sec Ao max P.1 mmHg LV V1 max P.3 mmHg Ao V2 mean: 76.8 cm/sec LV V1 mean P.7 mmHg Ao mean P.7 mmHg LV V1 mean: 60.8 cm/sec Ao V2 VTI: 26.1 cm LV V1 VTI: 20.3 cm AV (velocity ratio): 0.78 JASPREET(I,D): 3.0 cm2 JASPREET(V,D): 3.1 cm2 SV(LVOT): 78.7 ml PA V2 max: 75.6 cm/sec TR max tong: 247.4 cm/sec PA max PG (full): 0.83 mmHg TR max P.5 mmHg ECHO/Echo Complete Interpretation Summary Normal LV size. The left ventricular ejection fraction is 55 %. Pulmonary artery systolic pressure is 28 mmHg. Structurally normal valves. Ordering Physician: GERTRUDE SPENCER Referring Physician: GERTRUDE SPENCER Performed By: Estela Oliva RDCS
== END | disposition home or self-care (01) ==
LOC: CVS 08:45
PROVIDERS: PCP Family Medicine
DX: Z01.818 Encounter for other preprocedural examination (principal); C67.8 Malignant neoplasm of overlapping sites of bladder; E11.9 Type 2 diabetes mellitus without complications; Z85.51 Personal history of malignant neoplasm of bladder; E83.119 Hemochromatosis, unspecified; Z86.718 Personal history of other venous thrombosis and embolism; Z86.711 Personal history of pulmonary embolism; Z98.1 Arthrodesis status
CPT/HCPCS: 93306

== ENCOUNTER → 2024-11-06 | Outpatient (CLI) | payer OTHER, SELFPAY ==
--- NOTE | 2024-11-06 07:53 | CT_ITS ---
PROCEDURE: CT CHEST, ABD, PEL W/CONTRAST REASON FOR EXAM: History of prostate cancer and bladder cancer. CHERY. Hemochromatosis. History of cirrhosis. TECHNIQUE: Chest, abdomen and pelvis CT with intravenous contrast. CONTRAST: 100 cc of Isovue 300. COMPARISON: Comparison is made with prior study dated June 14, 2024. FINDINGS: CT CHEST: Hardware: A left-sided port a catheter is seen within the superior vena cava. Lymph nodes: No mediastinal hilar or axillary lymphadenopathy. Heart and Vasculature: Normal heart size. No pericardial effusion. Thoracic aorta and pulmonary arteries are unremarkable. Lungs and Airways: Minimal scarring in the lingular segment of the left upper lobe. Calcified granuloma in the peripheral aspect of the right middle lobe. Pleura: No pleural effusion. No pneumothorax. Bones: Degenerative changes of the thoracic spine. CT ABDOMEN/PELVIS: Liver: Unremarkable. Gallbladder: Surgically absent. Spleen: Unremarkable. Pancreas: Unremarkable. Adrenals: Unremarkable. Kidneys: Unremarkable. Bladder: The patient is status post cystectomy with ileal loop in the right lower quadrant. Status post prostatectomy. Bowel: Unremarkable. Prior ventral hernia repair with a mesh. Appendix: Status post appendectomy. Lymph nodes: There is a 4.7 cm x 5 cm cystic structure in the left side of the pelvis extending to the left pelvic wall. This may represent a postoperative lymphocele or seroma. Vasculature: Mild diffuse atherosclerotic calcifications are noted. Peritoneum / Retroperitoneum: No ascites. No free air. Bones: Degenerative changes of the spine. CT/CT Chest, Abd, Pel w/Contrast IMPRESSION: Status post cystectomy with ileal loop in the right lower quadrant. There is a new 4.7 cm x 5 cm cystic structure in the left side of the pelvis ad jacent to the left pelvic sidewall. This may represent a postoperative lymphocele or seroma. One or more dose reduction techniques were used (e.g., Automated exposure contr ol, adjustment of the mA and/or kV according to patient size, use of iterative reconstruction technique). Reading Location: [id number]
[2024-11-06] MEDS: 0.9% Saline Lock 10 ML Syringe IV (08:10)
== END | disposition home or self-care (01) ==
LOC: CT 07:46
PROVIDERS: PCP Family Medicine; Referring Provider Internal Medicine Hematology & Oncology; Visit Provider Internal Medicine Hematology & Oncology
DX: C67.8 Malignant neoplasm of overlapping sites of bladder (principal)
CPT/HCPCS: 71260; 74177; Q9967; A4216

== ENCOUNTER → 2025-02-13 | Outpatient (CLI) | payer OTHER, SELFPAY ==
[2025-02-13] MEDS: 0.9 % NaCl (Sterile) Posiflush 10 mL IV (08:20)
--- NOTE | 2025-02-13 08:20 | CT_ITS ---
PROCEDURE: CT CHEST, ABD, PEL W/CONTRAST 02/13/2025 REASON FOR EXAM: BLADDER CANCER Prior bladder resection. Prior resection of the prostate. TECHNIQUE: Chest, abdomen and pelvis CT with intravenous contrast. Coronal and Sagittal reconstruction series were provided. One or more dose reduction techniques were used (e.g., Automated exposure control, adjustment of the mA and/or kV according to patient size, use of iterative reconstruction technique. PATIENT PREPARATION: Per protocol ORAL CONTRAST TYPE: None. CONTRAST: Isovue 370 VOLUME: 100mL RADIATION DOSE SUMMARY: CTDlvol: 16 mGy DLP: 1820.18 mGycm COMPARISON: Prior study dated November 06, 2024. FINDINGS: CT CHEST: Hardware: A left-sided port a catheter is seen with the tip in the superior vena cava. Lymph nodes: No mediastinal or hilar lymph nodes. Heart and Vasculature: The heart is not enlarged. Atherosclerotic calcifications of the thoracic aorta. Pulmonary arteries are unremarkable. No coronary artery calcification is seen. Lungs and Airways: Minimal linear scarring in the lingular segment of the left upper lobe. Stable examination. Pleura: No pleural effusion. Bones: Degenerative changes of the thoracic spine. CT ABDOMEN/PELVIS: Liver: Normal size. No mass. Gallbladder: Surgically absent. Spleen: Normal size. Pancreas: Normal size without evidence of mass surrounding inflammation or ductal dilation. Adrenals: Unremarkable Kidneys: Normal renal sizes. No hydronephrosis. Bladder: The patient is status post cystectomy with ileal loop formation in the right lower quadrant. Reproductive Organs: Status post prostatectomy. Bowel: No bowel obstruction. Prior right inguinal hernia repair with a mesh. Lymph nodes: Unremarkable. Vasculature: Mild diffuse atherosclerotic calcifications are noted. Peritoneum / Retroperitoneum: Persistent 4.7 cm 4.8 cm cystic structure in the left hemipelvis. Bones: Degenerative changes of the spine. CT/CT Chest, Abd, Pel w/Contrast IMPRESSION: Stable examination. Reading Location: [place] [id number]
[2025-02-13] MEDS: 0.9% Saline Lock 10 ML Syringe IV (08:35)
== END | disposition home or self-care (01) ==
PROVIDERS: PCP Family Medicine
DX: C67.8 Malignant neoplasm of overlapping sites of bladder (principal)
CPT/HCPCS: 71260; 74177; Q9967; A4216

== ENCOUNTER → 2025-07-03 | Outpatient (CLI) | payer OTHER, SELFPAY ==
[2025-07-03] MEDS: 0.9 % NaCl (Sterile) Posiflush 10 mL IV (09:15)
[2025-07-03] MEDS: 0.9% Saline Lock 10 ML Syringe IV (09:25)
[2025-07-03 09:47] LABS: CREATININE FINGERSTICK 1.1 mg/dL (0.70-1.30); EGFR FINGERSTICK > 60.0000 mL/min (>60)
== END | disposition home or self-care (01) ==
DX: C67.8 Malignant neoplasm of overlapping sites of bladder (principal)
CPT/HCPCS: 71260; 74177; Q9967; A4216